=== PATIENT | male | born 1955 | race Caucasian/White ===

== ENCOUNTER 2018-02-22 09:30 | Inpatient (IN) | payer BC ==
[2018-02-22] MEDS ORDERED: IBUPROFEN 600 MG TAB PO STA (10:24)
[2018-02-22] MEDS ORDERED: ACETAMINOPHEN TAB 500 MG TAB PO STA (10:24)
[2018-02-22] MEDS ORDERED: LEVOFLOXACIN 750MG-D5W PMX 750 MG in DEXTROSE/WATER 1 150ML.BAG IVPB STA (10:24)
[2018-02-22] MEDS ORDERED: IPRATROPIUM-ALBUTEROL 3 ML NEB INHALATION STA ×2 (10:26→12:56)
[2018-02-22] MEDS ORDERED: SODIUM CHLORIDE 0.9% 1,000 ML IV SCH (10:30)
--- NOTE | 2018-02-22 10:56 | ED ---
General Adult HPI <Jc Diamond - Last Filed: 02/22/18 13:47> - General Source: patient, RN notes reviewed, old records reviewed Mode of arrival: wheelchair Limitations: no limitations <MagdalenoAmie - Last Filed: 02/22/18 14:26> - General Chief complaint: Extremity Problem,Nontraumatic Stated complaint: SWOLLEN LEGS, LEFT Time Seen by Provider: 02/22/18 10:17 - History of Present Illness Initial comments: This Patient is a 62-year-old male who presents emergency department today with chief complaint of 3 days of left leg pain and swelling. He reports it's red. He was sent in by his Patient Savage to rule out DVT. Patient also reports that over the past 3 weeks she's been having a significant cough and trouble breathing. Patient reports he has had chills. He is a nonsmoker. Patient states that the cough is productive with yellow green sputum. Patient has history of obesity. No prior history of blood clots. Patient reports that he has had increased shortness of breath. Has history of CHF. Patient states that he has difficult time walking short distances without being winded. ( MagdalenoAmie) - Related Data Home Medications Medication Instructions Recorded Confirmed Allopurinol [Zyloprim] 300 mg PO DAILY 04/17/17 02/22/18 Atorvastatin [Lipitor] 20 mg PO HS 04/17/17 02/22/18 Levothyroxine Sodium [Synthroid] 50 mcg PO DAILY 04/17/17 02/22/18 Metoprolol Tartrate [Lopressor] 100 mg PO DAILY 04/17/17 02/22/18 Potassium Chloride ER [K-Dur 20] 20 meq PO DAILY 04/17/17 02/22/18 Cholecalciferol (Vitamin D3) 2,000 unit PO DAILY 02/22/18 02/22/18 [Vitamin D3] Sodium Bicarbonate Tab 650 mg PO DAILY 02/22/18 02/22/18 Previous Rx's Medication Instructions Recorded Furosemide [Lasix] 40 mg PO DAILY #0 04/20/17 Allergies Allergy/AdvReac Type Severity Reaction Status Date / Time No Known Allergies Allergy Verified 02/22/18 11:44 Review of Systems ROS Other: All systems not noted in ROS Statement are negative. <Jc Diamond - Last Filed: 11/30/18 13:47> ROS Other: All systems not noted in ROS Statement are negative. <Amie Dolan - Last Filed: 02/22/18 14:26> ROS Statement: Those systems with pertinent positive or pertinent negative responses have been documented in the HPI. Past Medical History Past Medical History: Coronary Artery Disease (CAD), Heart Failure, Hyperlipidemia, Hypertension, Thyroid Disorder History of Any Multi-Drug Resistant Organisms: None Reported Past Surgical History: Adenoidectomy, Tonsillectomy Past Anesthesia/Blood Transfusion Reactions: No Reported Reaction Past Psychological History: No Psychological Hx Reported Smoking Status: Never smoker Past Alcohol Use History: None Reported Past Drug Use History: None Reported - Past Family History Father Family Medical History: CVA/TIA Mother Family Medical History: Cancer Additional Family Medical History / Comment(s): from cancer at age 80s <Amie Dolan - Last Filed: 02/22/18 14:26> General Exam <Jc Diamond - Last Filed: 02/22/18 13:47> Limitations: no limitations General appearance: alert, in no apparent distress Head exam: Present: atraumatic, normocephalic, normal inspection Eye exam: Present: normal appearance, PERRL, EOMI. Absent: scleral icterus, conjunctival injection, periorbital swelling ENT exam: Present: normal exam, mucous membranes moist Neck exam: Present: normal inspection. Absent: tenderness, meningismus, lymphadenopathy Respiratory exam: Present: wheezes, rhonchi, decreased breath sounds. Absent: normal lung sounds bilaterally, respiratory distress, rales, stridor Cardiovascular Exam: Present: regular rate, normal rhythm, normal heart sounds. Absent: systolic murmur, diastolic murmur, rubs, gallop, clicks GI/Abdominal exam: Present: soft, normal bowel sounds. Absent: distended, tenderness, guarding, rebound, rigid Extremities exam: Present: full ROM, normal capillary refill. Absent: normal inspection, tenderness, pedal edema, joint swelling, calf tenderness Left Knee exam: Present: swelling. Absent: tenderness, abrasion, ecchymosis, deformity, crepitus, dislocation, erythema, effusion Lower Leg exam: Present: full ROM, swelling, erythema. Absent: normal inspection Ankle exam: Present: tenderness, erythema. Absent: normal inspection, full ROM Foot/Toe exam: Absent: normal inspection Back exam: Present: normal inspection Neurological exam: Present: alert, oriented X3, CN II-XII intact Psychiatric exam: Present: normal affect, normal mood <Amie Dolan - Last Filed: 02/22/18 14:26> - General Exam Comments Initial Comments: 62-year-old male. Patient is morbidly obese. Sitting in wheelchair. (Magdaleno Amie) Vital Signs 02/22/18 02/22/18 02/22/18 09:31 11:05 11:15 Temperature 98.5 F 99.3 F Pulse Rate 117 H 88 111 H Respiratory 22 32 H Rate Blood Pressure 93/58 105/69 O2 Sat by Pulse 91 L 97 Oximetry 02/22/18 02/22/18 02/22/18 12:30 13:16 13:26 Temperature Pulse Rate 116 H 90 92 Respiratory 32 H Rate Blood Pressure 121/58 O2 Sat by Pulse 96 Oximetry 02/22/18 13:32 Temperature Pulse Rate 114 H Respiratory 30 H Rate Blood Pressure 117/83 O2 Sat by Pulse 95 Oximetry Medical Decision Making - Lab Data Result diagrams: 02/22/18 11:45 02/22/18 11:45 <Jc Diamond - Last Filed: 02/22/18 13:47> - Lab Data Result diagrams: 02/22/18 11:45 02/22/18 11:45 - Radiology Data Radiology results: report reviewed <Amie Dolan - Last Filed: 02/22/18 14:26> - Medical Decision Making The patient was seen and examined. All diagnostics were reviewed. The case is discussed with the PA and I agree with the findings as documented. Case is discussed with Dr. Marte and he is agreeable with admission. (Jc Diamond) Patient is a 62-year-old male, with chief complaint difficulty breathing, and left leg swelling. Isn't having a cough and shortness of breath for the past 3 weeks. His left leg has been swollen and red for the past 3 days. He was sent in initially to rule out blood clot. Patient was found to be very dyspneic. Wheezing and rhonchi noted in lung [place]. A low-grade temperature of 99.3. He reports a cough with yellow-green sputum. Initially concerned for pneumonia. Patient denies any specific chest pain at this time. Patient was given Motrin Tylenol and started on IV fluids. He did have elevated lactic acid of 2.6. He also has white blood cell, 15,000. Patient also chest x-ray shows possible pulmonary infiltrate or pulmonary edema concern for CHF. I do believe Patient at this time has a mixed picture of CHF and developing pneumonia. Patient was started on Levaquin. He started on Lasix, nitro paste. He was also found helmet elevated troponin of 0.207. Patient was initiated on heparin as well. Ultrasound of the leg was completed and negative for DVT. An concern for overlying cellulitis. Soap and vancomycin and Levaquin will be started on the Patient for antibiotic coverage. Patient will be admitted this time with consult to cardiology for CHF and elevated troponin. As well as consult pulmonology. Continue breathing treatments. (Amie Dolan) - Lab Data Lab Results 02/22/18 02/22/18 02/22/18 Range/Units 11:45 11:45 11:45 WBC 18.2 H (3.8-10.6) k/uL RBC 5.17 (4.30-5.90) m/uL Hgb 14.8 (13.0-17.5) gm/dL Hct 45.0 (39.0-53.0) % MCV 87.1 (80.0-100.0) fL MCH 28.6 (25.0-35.0) pg MCHC 32.8 (31.0-37.0) g/dL RDW 15.4 (11.5-15.5) % Plt Count 180 (150-450) k/uL Neutrophils % (Manual) 75 % Band Neutrophils % 18 % Lymphocytes % (Manual) 4 % Monocytes % (Manual) 4 % Other Cells % % Neutrophils # (Manual) 16.90 H (1.3-7.7) k/uL Lymphocytes # (Manual) 0.73 L (1.0-4.8) k/uL Monocytes # (Manual) 0.73 (0-1.0) k/uL Nucleated RBCs 0 (0-0) /100 WBC Toxic Granulation Present Large Platelets Present Sodium 135 L (137-145) mmol/L Potassium 4.4 (3.5-5.1) mmol/L Chloride 98 (98-107) mmol/L Carbon Dioxide 25 (22-30) mmol/L Anion Gap 12 mmol/L BUN 34 H (9-20) mg/dL Creatinine 2.15 H (0.66-1.25) mg/dL Est GFR (CKD-EPI)AfAm 37 (>60 ml/min/1.73 sqM) Est GFR (CKD-EPI)NonAf 32 (>60 ml/min/1.73 sqM) Glucose 122 H (74-99) mg/dL Plasma Lactic Acid Dario (0.7-2.0) mmol/L Calcium 9.6 (8.4-10.2) mg/dL Total Bilirubin 3.4 H (0.2-1.3) mg/dL AST 33 (17-59) U/L ALT 23 (21-72) U/L Alkaline Phosphatase 101 (38-126) U/L Troponin I (0.000-0.034) ng/mL NT-Pro-B Natriuret Pep pg/mL Total Protein 6.7 (6.3-8.2) g/dL Albumin 3.8 (3.5-5.0) g/dL Influenza Type A RNA Not Detected (Not Detectd) Influenza Type B (PCR) Not Detected (Not Detectd) 02/22/18 02/22/18 02/22/18 Range/Units 11:45 11:45 11:45 WBC (3.8-10.6) k/uL RBC (4.30-5.90) m/uL Hgb (13.0-17.5) gm/dL Hct (39.0-53.0) % MCV (80.0-100.0) fL MCH (25.0-35.0) pg MCHC (31.0-37.0) g/dL RDW (11.5-15.5) % Plt Count (150-450) k/uL Neutrophils % (Manual) % Band Neutrophils % % Lymphocytes % (Manual) % Monocytes % (Manual) % Other Cells % % Neutrophils # (Manual) (1.3-7.7) k/uL Lymphocytes # (Manual) (1.0-4.8) k/uL Monocytes # (Manual) (0-1.0) k/uL Nucleated RBCs (0-0) /100 WBC Toxic Granulation Large Platelets Sodium (137-145) mmol/L Potassium (3.5-5.1) mmol/L Chloride (98-107) mmol/L Carbon Dioxide (22-30) mmol/L Anion Gap mmol/L BUN (9-20) mg/dL Creatinine (0.66-1.25) mg/dL Est GFR (CKD-EPI)AfAm (>60 ml/min/1.73 sqM) Est GFR (CKD-EPI)NonAf (>60 ml/min/1.73 sqM) Glucose (74-99) mg/dL Plasma Lactic Acid Dario 2.6 H* (0.7-2.0) mmol/L Calcium (8.4-10.2) mg/dL Total Bilirubin (0.2-1.3) mg/dL AST (17-59) U/L ALT (21-72) U/L Alkaline Phosphatase (38-126) U/L Troponin I 0.207 H* (0.000-0.034) ng/mL NT-Pro-B Natriuret Pep 39681 pg/mL Total Protein (6.3-8.2) g/dL Albumin (3.5-5.0) g/dL Influenza Type A RNA (Not Detectd) Influenza Type B (PCR) (Not Detectd) 02/22/18 11:26 EKG shows sinus tachycardia with PVCs. Left frontal branch block. Abnormal EKG noted. Ventricular rate 108 bpm. MN interval is 150 ms. QRS ration 76 ms. QT QTc is 410/549 ms. (Amie Dolan) - Radiology Data Patchy right perihilar infiltrate may reflect developing pulmonary edema versus pneumonic infiltrate. (Amie Dolan) Disposition <Jc Diamond - Last Filed: 02/22/18 13:47> Time of Disposition: 13:38 <Amie Dolan - Last Filed: 02/22/18 14:26> Clinical Impression: Acute renal failure, Cellulitis and abscess of left leg, Morbid obesity, CHF exacerbation, NSTEMI (non-ST elevated myocardial infarction), Pneumonia Disposition: ADMITTED IP TO THIS HOSP Condition: Stable Referrals: Sherman Hall MD [Primary Care Provider] - 1-2 days
[2018-02-22] MEDS ORDERED: SODIUM CHLORIDE 0.9% 1,000 ML IV ONE (10:57)
[2018-02-22] MEDS ORDERED: methylPREDNISolone SOD SUCCI 125 MG/2 ML VIAL IV STA (10:57)
--- NOTE | 2018-02-22 12:24 | XR ---
EXAMINATION TYPE: XR chest 2V DATE OF EXAM: 02/22/2018 COMPARISON: 04/18/2017 HISTORY: Shortness of breath FINDINGS: There is cardiomegaly with mild pulmonary venous congestion. Patchy right perihilar infiltrate may re flect developing pulmonary edema versus a pneumonic infiltrate. Correlate clinically. Hilar and mediastinal structures are stable. IMPRESSION: Patchy right perihilar infiltrate may reflect developing pulmonary edema versus a pneumonic infiltrat e. Correlate clinically.
--- NOTE | 2018-02-22 12:46 | US ---
EXAMINATION TYPE: US venous doppler duplex LE LT DATE OF EXAM: 02/22/2018 10:26 AM COMPARISON: US left lower extremity venous April 17, 2017 CLINICAL HISTORY: Pain. Swelling and redness left leg. Difficult and limited exam due to patient larg e body habitus SIDE PERFORMED: Left TECHNIQUE: The lower extremity deep venous system is examined utilizing real time linear array sonog abrahan with graded compression, doppler sonography and color-flow sonography. VESSELS IMAGED: External Iliac Vein (EIV) Common Femoral Vein Deep Femoral Vein Greater Saphenous Vein * Femoral Vein Popliteal Vein Small Saphenous Vein * Proximal Calf Veins (* superficial vessels) Left Leg: Negative for DVT as visualized Grayscale, color doppler, spectral doppler imaging performed of the deep veins of the left lower extr emity. There is normal flow, compressibility, vascular waveforms. IMPRESSION: No ultrasound evidence for acute DVT in the left lower extremity.
[2018-02-22 12:49] LABS: HGB 14.8 gm/dL (13.0-17.5); MCH 28.6 pg (25.0-35.0); MCHC 32.8 g/dL (31.0-37.0); MCV 87.1 fL (80.0-100.0); Mean Platelet Volume 11.6; RBC 5.17 m/uL (4.30-5.90); RDW 15.4 % (11.5-15.5); WBC 18.2 k/uL (3.8-10.6)
[2018-02-22 12:59] LABS: Albumin 3.8 g/dL (3.5-5.0); Calcium 9.6 mg/dL (8.4-10.2); Potassium 4.4 mmol/L (3.5-5.1); Total Bilirubin 3.4 mg/dL (0.2-1.3); Total Protein 6.7 g/dL (6.3-8.2)
[2018-02-22] MEDS ORDERED: HEPARIN SODIUM,PORCINE 5,000 UNIT/ML 1 ML VIAL IV PRN (13:24)
[2018-02-22] MEDS ORDERED: ASPIRIN 325 MG TAB PO STA (13:24)
[2018-02-22] MEDS ORDERED: HEPARIN SODIUM,PORCINE 5,000 UNIT/ML 1 ML VIAL IV ONE (13:24)
[2018-02-22] MEDS ORDERED: HEPARIN SOD,PORK IN 0.45% NACL 25,000 UNIT in 0.45% NACL 1 500ML.BAG IV SCH (13:30)
[2018-02-22] MEDS ORDERED: FUROSEMIDE 10 MG/ML 4 ML VIAL IV STA (13:39)
[2018-02-22] MEDS ORDERED: VANCOMYCIN IV PER PHARMACY 1 EACH MISC MISCELLANE PRN (13:39)
[2018-02-22 13:57] LABS: Band Neutrophils % 18 %; Lymphocytes # (M) 0.73 k/uL (1.0-4.8); Monocytes # (M) 0.73 k/uL (0-1.0); Neutrophils % (M) 75 %; Nucleated Red Blood Cells 0 /100 WBC (0-0); Total Cells Counted 200
[2018-02-22 13:58] LABS: Large Platelets Present; Platelet Count 180 k/uL (150-450); Toxic Granulation Present
[2018-02-22] MEDS: SODIUM CHLORIDE 0.9% 500 ML 500 ML IV SCH ×2 (13:58→13:59)
[2018-02-22] MEDS ORDERED: NITROGLYCERIN SL TABS 0.4 MG TAB SUBLINGUAL PRN (14:26)
[2018-02-22 14:28] LABS: Basophils % (A) 0 %; Eosinophils # (A) 0.1 k/uL (0-0.7); Eosinophils % (A) 1 %; HGB 15.8 gm/dL (13.0-17.5); Lymphocytes # (A) 0.7 k/uL (1.0-4.8); Lymphocytes % (A) 4 %; MCH 28.7 pg (25.0-35.0); MCV 87.1 fL (80.0-100.0); Monocytes # (A) 0.4 k/uL (0-1.0); Monocytes % (A) 2 %; Neutrophils # (A) 16.6 k/uL (1.3-7.7); Neutrophils % (A) 93 %; Platelet Count 158 k/uL (150-450); RBC 5.51 m/uL (4.30-5.90); RDW 15.1 % (11.5-15.5); WBC 17.9 k/uL (3.8-10.6)
[2018-02-22] MEDS ORDERED: PNEUMONIA PROTOCOL UTILIZED 1 EACH MISC PO PRN (14:28)
[2018-02-22 14:37] LABS: INR 1.3 (<1.2); Partial Thromboplastin Time 28.5 sec (22.0-30.0)
[2018-02-22] MEDS ORDERED: VANCOMYCIN 2,250 MG in SODIUM CHLORIDE 0.9% 500 ML 500 ML IVPB SCH (15:00)
[2018-02-22 15:20] LABS: D-Dimer 1.16 mg/L FEU (<0.60); INR 1.2 (<1.2); Partial Thromboplastin Time 26.4 sec (22.0-30.0); Prothrombin Time 11.9 sec (9.0-12.0)
[2018-02-22 18:18] LABS: Creatine Kinase MB 19.3 ng/mL (0.0-2.4)
[2018-02-22 18:26] LABS: Troponin I 0.29 ng/mL (0.000-0.034)
[2018-02-22] MEDS: ATORVASTATIN 20 MG TAB PO SCH (21:38)
--- NOTE | 2018-02-22 22:47 | HP ---
HISTORY AND PHYSICAL DATE OF ADMISSION: 02/22/2018 DATE OF SERVICE: 02/22/2018 PRESENTING COMPLAINT: Swelling of the left lower extremity. HISTORY OF PRESENTING COMPLAINT: This is a pleasant 62-year-old patient who follows with Dr. Hall. Chronic stable medical conditions include hyperlipidemia, hypertension, hypothyroid. Patient possibly has a history of congestive heart failure. The patient is rather morbidly obese; BMI 51.7. Patient has been having increasing swelling, especially of the left leg with blisters and some draining and oozing. Patient has some discoloration of the left lower extremity. Denies any fever or chills. Appetite is fair. Minimal cough, if any. Admitted for the same. The patient also appears to have chronic kidney disease with some worsening of the renal function. Patient's shortness of breath is at his baseline, he thinks. DVT was ruled out in the ER. Patient was suspected to have congestive heart failure exacerbation, put on IV bolus Lasix. REVIEW OF SYSTEMS: CONSTITUTIONAL: Tired. HEENT: None. RESPIRATORY: Some shortness of breath. CARDIOVASCULAR: As above. No chest pain. GASTROINTESTINAL: None. GENITOURINARY: None. MUSCULOSKELETAL: None. DERMATOLOGICAL: Blisters on the left lower extremity. Some discoloration. HEMATOLOGICAL: None. LYMPHATICS: As above. PSYCHIATRY: None. NEUROLOGICAL: None. PAST MEDICAL HISTORY: 1. Congestive heart failure. 2. Hypertension. 3. Hyperlipidemia. 4. Hypothyroid. 5. Morbid obesity. PAST SURGICAL HISTORY: 1. Adenoidectomy. 2. Tonsillectomy. 3. Cataracts. SOCIAL HISTORY: Does not smoke or drink alcohol. 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 Has a roommate. FAMILY HISTORY: Cancer. HOME MEDICATIONS: 1. Sodium bicarbonate 650 mg a day. 2. Lopressor 100 mg a day. 3. Synthroid 50 mcg a day. 4. Vitamin D3 2000 units a day. 5. Potassium 20 mEq a day. 6. Lasix 40 mg a day. 7. Lipitor 20 mg at bedtime. 8. Allopurinol 300 mg p.o. daily. ALLERGIES: NONE. PHYSICAL EXAMINATION: Temperature 97, pulse 104, respiration 30, blood pressure 109/78, pulse ox 92% on room air. GENERAL APPEARANCE: Sitting on the edge of the bed. Morbidly obese; BMI 51.7. Shortness of breath at rest. EYES: Pupils equal. Conjunctivae normal. HEENT: External appearance of nose and ears normal. Oral cavity normal. NECK: Soft, thick. JVD unable to assess. Mass not palpable. RESPIRATORY: Effort increased. LUNGS: Distant heart sounds. CARDIOVASCULAR: Heart sounds muffled. Edema present, more so in the left lower extremity. ABDOMEN: Distended, soft. Liver and spleen not palpable. LYMPHATIC: No lymph node palpable in neck or axillae. PSYCHIATRY: Alert and oriented x3. Mood and affect normal. EXTREMITIES: Left leg is more swollen compared to the right. Blisters are present. There is also venostasis discoloration present, on the left lower extremity especially. Patient's nails are overgrown with some onychomycosis. INVESTIGATIONS: White count 18.2, hemoglobin 14.8, potassium 4.4, BUN 34, creatinine 2.15. ProBNP 24,300. Chest x-ray film, personally reviewed by me, shows some cardiomegaly, questionable fluid versus patchy infiltrates. ASSESSMENT: 1. This is a patient who presents with lower extremity swelling, more so on the left leg, with possible venous prominence on the chest x-ray, though the patient is grossly overweight. Patient's BNP is somewhat misleading in the setting of renal failure, but overall patient's clinical picture is compatible with congestive heart failure exacerbation. 2. Bilateral lower extremity venous insufficiency, more pronounced on the left lower extremity. 3. Chronic venostasis with blister formation, left lower extremity, with some secondary infection. 4. Bilateral onychomycosis. 5. Essential hypertension. 6. Hyperlipidemia. 7. Hypothyroid. 8. Morbid obesity; body mass index 51.7. 9. Lactic acidosis, probably type 2, not from sepsis. 10.Acute renal failure, probably prerenal, in the setting of chronic kidney disease, stage III, from nephrosclerosis. PLAN: Will stop patient's IV vancomycin, given the renal failure, and start the patient on clindamycin. Will use Silvadene cream with Kerlix and Hermes wrap. Will also put the patient on a Lasix drip for 24 hours with strict I&O and some fluid restriction. Will also send off a UA to look for chronic renal failure. Will also order a renal ultrasound. I doubt that patient has pneumonia. Consultations have been placed for Nephrology, Pulmonary and Cardiology. Care was discussed with the patient. Questions were answered. Keep a close eye on patient's renal function. MMODL / IJN: [id number] /
[2018-02-22] MEDS: FUROSEMIDE 250 MG in SODIUM CHLORIDE 0.9% 225 ML IVPB SCH (23:14)
[2018-02-22] MEDS: CLINDAMYCIN 300 MG in DEXTROSE 5% IN WATER 50 ML IVPB SCH ×2 (23:15)
[2018-02-22 23:29] LABS: Creatine Kinase MB 49.5 ng/mL (0.0-2.4)
[2018-02-23] LABS: Troponin I 0.198 ng/mL (0.000-0.034)
[2018-02-23] MEDS ORDERED: FUROSEMIDE 10 MG/ML 4 ML VIAL IV SCH
[2018-02-23 02:46] LABS: Appearance,Urine Turbid (Clear); Bacteria,Urine Occasional /hpf; Bilirubin,Urine Negative (Negative); Blood,Urine Small (Negative); Color,Urine Dark Brown; Glucose,Urine (UA) Negative (Negative); Ketones,Urine Trace (Negative); Leukocyte Esterase,Urine Negative (Negative); Mucus,Urine Few /hpf; Nitrite,Urine Negative (Negative); Protein,Urine 1+ (Negative); RBC,Urine 9 /hpf (0-5); Specific Gravity,Urine 1.017 (1.001-1.035); Squamous Epithelial Cell,Urine <1 /hpf (0-4); WBC,Urine 9 /hpf (0-5)
[2018-02-23] MEDS: LEVOTHYROXINE 50 MCG TAB PO SCH (06:17)
[2018-02-23 07:52] LABS: Basophils % (A) 0 %; Eosinophils % (A) 0 %; HCT 47.2 % (39.0-53.0); Lymphocytes # (A) 1.2 k/uL (1.0-4.8); Lymphocytes % (A) 5 %; MCH 27.9 pg (25.0-35.0); MCHC 31.7 g/dL (31.0-37.0); MCV 88.1 fL (80.0-100.0); Mean Platelet Volume 12.5; Monocytes # (A) 0.7 k/uL (0-1.0); Monocytes % (A) 3 %; Neutrophils # (A) 21.1 k/uL (1.3-7.7); Neutrophils % (A) 90 %; Platelet Count 152 k/uL (150-450); RBC 5.36 m/uL (4.30-5.90); RDW 15.3 % (11.5-15.5); WBC 23.3 k/uL (3.8-10.6)
[2018-02-23 08:10] LABS: Calcium 9.8 mg/dL (8.4-10.2); Potassium 4.5 mmol/L (3.5-5.1)
[2018-02-23] MEDS: CHOLECALCIFEROL 1,000 UNIT TAB PO SCH (08:12)
[2018-02-23] MEDS: ALLOPURINOL 300 MG TAB PO SCH (08:12)
[2018-02-23] MEDS: ASPIRIN 325 MG TAB PO SCH (08:12)
[2018-02-23] MEDS: METOPROLOL TARTRATE 50 MG TAB PO SCH (08:12)
[2018-02-23] MEDS: POTASSIUM CHLORIDE ER 20 MEQ TAB.ER PO SCH (08:12)
[2018-02-23] MEDS: CLINDAMYCIN 300 MG in DEXTROSE 5% IN WATER 50 ML IVPB SCH ×4 (08:22→16:00)
[2018-02-23] MEDS ORDERED: FUROSEMIDE 40 MG TAB PO SCH (09:00)
[2018-02-23] MEDS ORDERED: SODIUM BICARBONATE TAB 650 MG TAB PO SCH (09:00)
--- NOTE | 2018-02-23 09:45 | XR ---
EXAMINATION TYPE: XR chest 2V DATE OF EXAM: 02/23/2018 COMPARISON: 10/22/2017 HISTORY: 1 new. Follow-up exam. TECHNIQUE: Frontal and lateral views of the chest are obtained. FINDINGS: There is increasing confluence of a retrocardiac opacity also seen at the right lung base. Remainder the lungs demonstrate very mild pulmonary congestion although improved from the prior. Car diomediastinal silhouette is again enlarged. No sizable pneumothorax or pleural effusion. IMPRESSION: Increasing bibasilar opacities that may represent atelectasis or pneumonia in the approp riate clinical setting.
--- NOTE | 2018-02-23 10:44 | US ---
EXAMINATION TYPE: US renals and bladder DATE OF EXAM: 02/22/2018 COMPARISON: NONE CLINICAL HISTORY: renal failure. EXAM MEASUREMENTS: Right Kidney: 10.9 x 5.1 x 4.8 cm Left Kidney: 10.1 x 4.7 x 4.9 cm Limited due to body habitus, pt short of breath, and pt inability to rld/lld completely. Right Kidney: Severely limited examination with no gross hydronephrosis Left Kidney: Severely limited visualization with no gross hydronephrosis Bladder: Decompressed not visualized Bilateral Jets seen: No There is no evidence for hydronephrosis at this point in time. The urinary bladder is not visualized due to pt voiding prior to exam. IMPRESSION: Severely limited exam secondary to patient body habitus. No gross evidence of hydronephrosis. Urinary bladder is not visualized as the patient voided prior to the exam.
[2018-02-23] MEDS: IPRATROPIUM-ALBUTEROL 3 ML NEB INHALATION PRN (11:43)
[2018-02-23] MEDS ORDERED: DOBUTamine DRIP 500 MG in DEXTROSE/WATER 1 250ML.BAG IV SCH (12:30)
[2018-02-23] MEDS: NITROGLYCERIN OINT 1 INCH/GM PACKET TOPICAL SCH ×3 (13:43→21:04)
--- NOTE | 2018-02-23 13:43 | P.NPCON ---
History of Present Illness - Reason for Consult Consult date: 02/23/18 acute renal failure - Chief Complaint Edema and cellulitis and losing - History of Present Illness This is a 62-year-old morbidly obese male seen in consultation because of acute kidney injury, bruising and edema. Currently he is on dopamine started just a few minutes before my exam. He has not been responding to IV Lasix drip at 10 mg per hour. He remains weak and tired. Able to stand up without any orthostatic changes. His edema remains and is oozing with labs. No fever chills no nausea vomiting diarrhea no abdominal pain no dysuria frequency. A bladder scan showed 200 mL. Previously in March 2017 was admitted with a creatinine of 4.5 which came down to 1.45 on admission. The cause of this admission was again fluid overload and congestive heart failure. Workup has shown ultrasound 10.9 cm and 10.1 cm right and left kidney. A chest x-ray shows suggestive congestive heart failure and has improved. In spite of this his creatinine went up from 2.15 on admission to 2.9. History of present illness. This Patient is a 62-year-old male who presents emergency department today with chief complaint of 3 days of left leg pain and swelling. He reports it's red. He was sent in by his Patient Savage to rule out DVT. Patient also reports that over the past 3 weeks she's been having a significant cough and trouble breathing. Patient reports he has had chills. He is a nonsmoker. Patient states that the cough is productive with yellow green sputum. Patient has history of obesity. No prior history of blood clots. Patient reports that he has had increased shortness of breath. Has history of CHF. Patient states that he has difficult time walking short distances without being winded Past Medical History Past Medical History: Coronary Artery Disease (CAD), Heart Failure, Hyperlipidemia, Hypertension, Thyroid Disorder Additional Past Medical History / Comment(s): 02/22/18 PT WANTS PNE VACCINE. OTHER PMH:gout, 04-17-17 admitted with ARF AND ELEVATED POTASSIUM LEVEL History of Any Multi-Drug Resistant Organisms: None Reported Past Surgical History: Adenoidectomy, Tonsillectomy Additional Past Surgical History / Comment(s): cataracts Past Anesthesia/Blood Transfusion Reactions: No Reported Reaction Smoking Status: Never smoker - Past Family History Father Family Medical History: CVA/TIA Mother Family Medical History: Cancer Additional Family Medical History / Comment(s): from cancer at age 80s Medications and Allergies Home Medications Medication Instructions Recorded Confirmed Type Allopurinol [Zyloprim] 300 mg PO DAILY 04/17/17 02/22/18 History Atorvastatin [Lipitor] 20 mg PO HS 04/17/17 02/22/18 History Levothyroxine Sodium [Synthroid] 50 mcg PO DAILY 04/17/17 02/22/18 History Metoprolol Tartrate [Lopressor] 100 mg PO DAILY 04/17/17 02/22/18 History Potassium Chloride ER [K-Dur 20] 20 meq PO DAILY 04/17/17 02/22/18 History Furosemide [Lasix] 40 mg PO DAILY #0 04/20/17 02/22/18 Rx Cholecalciferol (Vitamin D3) 2,000 unit PO DAILY 02/22/18 02/22/18 History [Vitamin D3] Sodium Bicarbonate Tab 650 mg PO DAILY 02/22/18 02/22/18 History Allergies Allergy/AdvReac Type Severity Reaction Status Date / Time No Known Allergies Allergy Verified 02/22/18 11:44 Physical Exam Vitals: Vital Signs Temp Pulse Pulse Resp BP BP BP 02/23/18 13:15 117/77 02/23/18 13:12 126/80 02/23/18 13:09 80 145/78 02/23/18 13:03 88 107/73 02/23/18 11:55 88 02/23/18 11:42 96 81 16 02/23/18 11:41 81 16 122/81 02/23/18 08:00 96.8 F L 118 H 18 137/96 02/23/18 04:00 98 F 80 20 131/74 02/23/18 00:00 97.6 F 75 20 132/77 02/22/18 20:00 98.5 F 80 18 130/49 02/22/18 17:00 98.0 F 94 28 H 130/84 02/22/18 14:15 97.0 F L 104 H 30 H 109/78 Pulse Ox 02/23/18 13:15 02/23/18 13:12 02/23/18 13:09 02/23/18 13:03 02/23/18 11:55 02/23/18 11:42 02/23/18 11:41 93 L 02/23/18 08:00 92 L 02/23/18 04:00 94 L 02/23/18 00:00 93 L 02/22/18 20:00 92 L 02/22/18 17:00 96 02/22/18 14:15 92 L Intake and Output 02/22/18 02/23/18 02/23/18 22:59 06:59 14:59 Output Total 600 Balance -600 Output: Urine 600 Straight 600 Other: Weight 157.6 kg 157.6 kg On examination he is morbidly obese short of breath weak and tired. HEENT exam no JVP neck is supple no facial asymmetry no lymphadenopathy thyromegaly Lungs are significant for an occasional end expiratory disease with an occasional coarse crackle. Fair air entry bilaterally Heart sounds are unremarkable for any murmur rub gallop Abdomen is obese difficult to examine. Extremity exam reveals bilateral Hermes wraps with significant edema of the thighs. There are some blebs visible in the legs bilaterally just about the edge of the Hermes wrap Neurologically awake alert oriented was able to stand up with some difficulty in holding onto 8 walker. His blood pressure was 126/80 with heart rate of 93 supine and standing up when down to 117/77 with heart rate of 94. Results - Lab Results Most recent lab results Calcium 9.8 mg/dL (8.4-10.2) 02/23/18 07:01 02/23/18 07:01 02/23/18 07:01 Assessment and Plan Plan: Impression 1. Acute kidney injury secondary to cardiorenal syndrome. Worsening creatinine from 115 and admission to 2.9 with IV Lasix. Started on dopamine this morning. 2 early to see the response was just started a few minutes ago. His blood pressure was 126/80 with heart rate of 93 supine and standing up when down to 117/77 with heart rate of 94. Therefore there is no evidence of intravascular volume depletion. 2. Chronic kidney disease CK D stage III, nephrosclerosis. Baseline creatinine approximately 1.45 dated March 2017 at the time of his last discharge. Peak creatinine the time was 4.5. Ultrasound shows 10.9 and 10.1 cm kidney without hydronephrosis. Urinalysis shows 1+ proteinuria. 3. Mild gap acidosis secondary acute kidney injury gap is 18 with a bicarb of 18. Lactic acid is 3 4. Mildly high CK 1566, rhabdomyolysis but unlikely to be related to acute kidney injury at this level of CK. Cause of this may be cellulitis and tired edema. 5. Morbid obesity. 6. Slightly high troponin at 0.2 Recommendation. 1. Maintain IV Lasix currently at 10 mg per hour. 2. Agree with dopamine small doses. 3. Sodium bicarbonate 650 4 times a day. 4. Check lactic acid follow-up.
--- NOTE | 2018-02-23 14:37 | P.CRDCN ---
History of Present Illness History of present illness: This is a pleasant 62-year-old male past medical history significant for dyslipidemia, hypertension, left bundle branch block on EKG and morbid obesity. He recently established care with Dr. Goodwin in the office April of this year. At that time it is noted that he also has a history of chronic diastolic heart failure, Dr. Goodwin recommended undergoing echocardiogram, Holter monitor and Lexiscan. The patient never followed up for this test. We have been asked to see him in consultation secondary to elevated troponins and heart failure. The patient states that around about Thanksgiving time he started noticing significant edema in his left lower extremity. This seemed to be getting progressively worse over time. He takes oral Lasix at home but was showing no improvement in the edema. Venous Doppler was obtained and is negative for DVT. He also complains of cough that has been progressive over the previous 3 weeks with shortness of breath and sometimes exertional dyspnea. Chest x-ray revealed evidence of perihilar infiltrate with developing pulmonary edema versus pneumonic infiltrate. He has been started on IV antibiotics as well has a Lasix infusion. At the time of my exam he is seen sitting up at the edge of the bed in mild respiratory distress. He denies symptoms of chest discomfort, palpitations or dizziness. He states that he does sleep in an upright position but this is typically due to body habitus and comfort not necessarily related to orthopnea. Since admission his weight has remained the same and he is showing in negative fluid balance of 900 mL's. An accurate documentation of intake. There is no old echo to review. EKG reveals left bundle branch block pattern which is also seen in previous EKGs. Laboratory data reviewed, WBC 23.3 up from 17.9 on admission, hemoglobin 15, platelets 152, sodium 137, d-dimer 1.16, potassium 4.5, creatinine 2.94 from 2.15 on admission, 50 just on admission 3.0 down to 1.8, troponin admission 0.207, 0.290 0.198 with CK 1022 and 1566, NT proBNP 24,300. Current cardiac medications on admission include Lopressor 100 mg daily, potassium supplementation, Lasix 40 mg daily, atorvastatin 20 mg daily. At the time of my exam: CONSTITUTIONAL: Denies fever. Denies chills. EYES: Denies blurred vision. Denies vision changes. Denies eye pain. EARS, NOSE, MOUTH & THROAT: Denies headache. Denies sore throat. Denies ear pain. CARDIOVASCULAR: Denies chest pain. Complains of exertional shortness of breath. Denies orthopnea. Denies PND. Denies palpitations. RESPIRATORY: Denies cough. GASTROINTESTINAL: Denies abdominal pain. Denies diarrhea. Denies constipation. Denies nausea. Denies vomiting. MUSCULOSKELETAL: Denies myalgias. INTEGUMENTARY: Denies pruitis. Denies rash. NEUROLOGIC: Denies numbness. Denies tingling. Denies weakness. PSYCHIATRIC: Denies anxiety. Denies depression. ENDOCRINE: Denies fatigue. Denies weight change. Denies polydipsia. Denies polyurina. GENITOURINARY: Denies burning, hematuria or urgency with micturation. HEMATOLOGIC: Denies history of anemia. Denies bleeding. Blood pressure 104/84 heart rate 88 afebrile maintaining oxygen saturation on room air GENERAL: This is a 62-year-old male in no apparent distress at the time of my examination. Morbid obesity. HEENT: Head is atraumatic, normocephalic. Pupils are equal, round. Sclerae anicteric. Conjunctivae are clear. Mucous membranes of the mouth are moist. Neck is supple. There is no jugular venous distention although difficult to assess secondary to body habitus. No carotid bruit is heard. LUNGS: Bibasilar rales. No wheezes or rhonchi. No chest wall tenderness is noted on palpation or with deep breathing. HEART: Regular rate and rhythm without murmurs, rubs or gallops. S1 and S2 heard. ABDOMEN: Soft, nontender. Bowel sounds are heard. No organomegaly noted. EXTREMITIES: Significant 2+ plus pitting edema to the left lower extremity, 1+ pitting edema to the right lower extremity bilateral erythema noted. No calf tenderness noted. Bilateral Hermes wraps in place. VASCULAR: Radial and dorsalis pedis pulses palpated, no evidence of clubbing. NEUROLOGIC: Patient is awake, alert and oriented x3. ASSESSMENT Acute heart failure unknown type. Echocardiogram will be reviewed. Cellulitis Leukocytosis Hypertension Dyslipidemia Mildly elevated troponins not indicative of an acute coronary event may be related to sepsis Acute on chronic renal failure Morbid obesity, BMI 51 PLAN Obtain 2-D echocardiogram and Doppler study to assess cardiac structure and function. Continue with Lasix drip. Initiate on dobutamine infusion at 5 mcg. Obtain daily weights, document strict intake and output and follow kidney function and electrolytes daily. We will continue to follow make recommendations accordingly. Thank you kindly for this consultation. Nurse Practitioner note has been reviewed, I agree with a documented findings and plan of care. Patient was seen and examined. Past Medical History Past Medical History: Coronary Artery Disease (CAD), Heart Failure, Hyperlipidemia, Hypertension, Thyroid Disorder Additional Past Medical History / Comment(s): 02/22/18 PT WANTS PNE VACCINE. OTHER PMH:gout, 04-17-17 admitted with ARF AND ELEVATED POTASSIUM LEVEL History of Any Multi-Drug Resistant Organisms: None Reported Past Surgical History: Adenoidectomy, Tonsillectomy Additional Past Surgical History / Comment(s): cataracts Past Anesthesia/Blood Transfusion Reactions: No Reported Reaction Smoking Status: Never smoker - Past Family History Father Family Medical History: CVA/TIA Mother Family Medical History: Cancer Additional Family Medical History / Comment(s): from cancer at age 80s Medications and Allergies Home Medications Medication Instructions Recorded Confirmed Type Allopurinol [Zyloprim] 300 mg PO DAILY 04/17/17 02/22/18 History Atorvastatin [Lipitor] 20 mg PO HS 04/17/17 02/22/18 History Levothyroxine Sodium [Synthroid] 50 mcg PO DAILY 04/17/17 02/22/18 History Metoprolol Tartrate [Lopressor] 100 mg PO DAILY 04/17/17 02/22/18 History Potassium Chloride ER [K-Dur 20] 20 meq PO DAILY 04/17/17 02/22/18 History Furosemide [Lasix] 40 mg PO DAILY #0 04/20/17 02/22/18 Rx Cholecalciferol (Vitamin D3) 2,000 unit PO DAILY 02/22/18 02/22/18 History [Vitamin D3] Sodium Bicarbonate Tab 650 mg PO DAILY 02/22/18 02/22/18 History Allergies Allergy/AdvReac Type Severity Reaction Status Date / Time No Known Allergies Allergy Verified 02/22/18 11:44 Physical Exam Vitals: Vital Signs Temp Pulse Pulse Resp BP BP Pulse Ox 02/23/18 08:00 96.8 F L 118 H 18 137/96 92 L 02/23/18 04:00 98 F 80 20 131/74 94 L 02/23/18 00:00 97.6 F 75 20 132/77 93 L 02/22/18 20:00 98.5 F 80 18 130/49 92 L 02/22/18 17:00 98.0 F 94 28 H 130/84 96 02/22/18 14:15 97.0 F L 104 H 30 H 109/78 92 L 02/22/18 13:32 114 H 30 H 117/83 95 02/22/18 13:26 92 02/22/18 13:16 90 02/22/18 12:30 116 H 32 H 121/58 96 02/22/18 11:15 99.3 F 111 H 32 H 105/69 97 02/22/18 11:05 88 02/22/18 09:31 98.5 F 117 H 22 93/58 91 L Intake and Output 02/22/18 02/23/18 02/23/18 22:59 06:59 14:59 Output Total 600 Balance -600 Output: Urine 600 Straight 600 Other: Weight 157.6 kg Results 02/23/18 07:01 02/23/18 07:01 Cardiac Enzymes 02/22/18 02/22/18 02/22/18 Range/Units 11:45 11:45 17:11 AST 33 (17-59) U/L CK-MB (CK-2) 19.3 H (0.0-2.4) ng/mL Troponin I 0.207 H* 0.290 H* (0.000-0.034) ng/mL 02/22/18 Range/Units 22:28 AST (17-59) U/L CK-MB (CK-2) 49.5 H (0.0-2.4) ng/mL Troponin I 0.198 H* (0.000-0.034) ng/mL Coagulation 02/22/18 02/22/18 02/22/18 Range/Units 13:59 14:20 22:28 PT 12.0 11.9 (9.0-12.0) sec APTT 28.5 26.4 34.4 H (22.0-30.0) sec 02/23/18 Range/Units 07:01 PT (9.0-12.0) sec APTT 32.7 H (22.0-30.0) sec Lipids 02/23/18 Range/Units 07:01 Triglycerides 109 (<150) mg/dL Cholesterol 130 (<200) mg/dL HDL Cholesterol 34 L (40-60) mg/dL CBC 02/22/18 02/22/18 02/23/18 Range/Units 11:45 13:59 07:01 WBC 18.2 H 17.9 H 23.3 H (3.8-10.6) k/uL RBC 5.17 5.51 5.36 (4.30-5.90) m/uL Hgb 14.8 15.8 15.0 (13.0-17.5) gm/dL Hct 45.0 48.0 47.2 (39.0-53.0) % Plt Count 180 158 152 (150-450) k/uL Comprehensive Metabolic Panel 02/22/18 02/23/18 Range/Units 11:45 07:01 Sodium 135 L 137 (137-145) mmol/L Potassium 4.4 4.5 (3.5-5.1) mmol/L Chloride 98 101 (98-107) mmol/L Carbon Dioxide 25 18 L (22-30) mmol/L BUN 34 H 52 H (9-20) mg/dL Creatinine 2.15 H 2.94 H (0.66-1.25) mg/dL Glucose 122 H 118 H (74-99) mg/dL Calcium 9.6 9.8 (8.4-10.2) mg/dL AST 33 (17-59) U/L ALT 23 (21-72) U/L Alkaline Phosphatase 101 (38-126) U/L Total Protein 6.7 (6.3-8.2) g/dL Albumin 3.8 (3.5-5.0) g/dL Current Medications Generic Name Dose Route Start Last Admin Trade Name Freq PRN Reason Stop Dose Admin Albuterol/Ipratropium 3 ml 02/22/18 14:28 Duoneb 0.5 Mg-3 Mg/3 Ml Soln INHALATION RT-Q4H PRN shortness of breath Allopurinol 300 mg 02/23/18 09:00 02/23/18 08:12 Zyloprim PO 300 mg DAILY RADHA Administration Aspirin 325 mg 02/23/18 09:00 02/23/18 08:12 Aspirin PO 325 mg DAILY RADHA Administration Atorvastatin Calcium 20 mg 02/22/18 21:00 02/22/18 21:38 Lipitor PO 20 mg HS RADHA Administration Cholecalciferol 2,000 unit 02/23/18 09:00 02/23/18 08:12 Vitamin D3 PO 2,000 unit DAILY RADHA Administration Furosemide 40 mg 02/23/18 09:00 02/23/18 08:22 Lasix PO Not Given DAILY RADHA Heparin Sodium (Porcine) 0 unit 02/22/18 13:24 Heparin IV PER PROTOCOL PRN Low PTT Protocol Levofloxacin 750 mg/ IV 150 mls @ 100 mls/hr 02/23/18 16:00 Solution IVPB 03/05/18 16:01 Q24H RADHA Furosemide 250 mg/ Sodium 250 mls @ 10 mls/hr 02/22/18 22:00 02/22/18 23:14 Chloride IVPB 10 mg/hr .Q24H RADHA 10 mls/hr Administration 10 MG/HR Clindamycin Phosphate 300 mg/ 52 mls @ 50 mls/hr 02/23/18 00:00 02/23/18 08: 22 Dextrose/Water IVPB 50 mls/hr Q8HR RADHA Administration Levothyroxine Sodium 50 mcg 02/23/18 06:30 02/23/18 06:17 Synthroid PO 50 mcg 0630 RADHA Administration Metoprolol Tartrate 100 mg 02/23/18 09:00 02/23/18 08:12 Lopressor PO 100 mg DAILY RADHA Administration Miscellaneous Information 1 each 02/22/18 14:28 Pneumonia Protocol Utilized PO ONCE PRN Per Protocol Nitroglycerin 1 inch 02/23/18 13:25 Nitro-Bid Oint TOPICAL QID [facility] Nitroglycerin 0.4 mg 02/22/18 14:26 Nitrostat SUBLINGUAL Q5M PRN Chest Pain Potassium Chloride 20 meq 02/23/18 09:00 02/23/18 08:12 K-Dur 20 PO 20 meq DAILY RADHA Administration Silver Sulfadiazine 1 applic 02/22/18 21:45 02/23/18 08:13 Silvadene Cream TOPICAL 1 applic BID RADHA Administration Sodium Bicarbonate 650 mg 02/23/18 09:00 02/23/18 08:12 Sodium Bicarbonate Tab PO 650 mg DAILY RADHA Administration Intake and Output 02/22/18 02/23/18 02/23/18 22:59 06:59 14:59 Output Total 600 Balance -600 Output: Urine 600 Straight 600 Other: Weight 157.6 kg 02/23/18 07:01 02/23/18 07:01
--- NOTE | 2018-02-23 14:47 | ECHOF ---
Referral Reason:cp, sob MEASUREMENTS -------- HEIGHT: 175.3 cm WEIGHT: 157.4 kg BP: 137/96 IVSd: 1.3 cm (0.6 - 1.1) LVIDd: 6.0 cm (3.9 - 5.3) LVPWd: 1.3 cm (0.6 - 1.1) EDV(Teich): 178 ml IVSs: 1.8 cm LVIDs: 5.3 cm LVPWs: 2.5 cm %IVS Thck: 42 % ESV(Teich): 137 ml EF(Teich): 23 % %FS: 11 % SV(Teich): 42 ml LA Diam: 4.6 cm (2.7 - 3.8) RVIDd: 3.4 cm (< 3.3) LALs A4C: 6.9 cm LAAs A4C: 27.7 cm LAESV A-L A4C: 94 ml LAESV MOD A4C: 90 ml LALs A2C: 6.6 cm LAAs A2C: 30.4 cm LAESV A-L A2C: 120 ml LAESV MOD A2C: 109 ml LAESV(A-L): 109 ml LAESV Index (A-L): 41.82 ml/m Ao Diam: 3.6 cm (2.0 - 3.7) AV Cusp: 2.8 cm (1.5 - 2.6) EPSS: 2.3 cm MV E Jonathan: 0.55 m/s MV DecT: 360 ms MV Dec [place]: 1.5 m/s MV A Jonathan: 0.79 m/s MV E/A Ratio: 0.70 MV PHT: 104 ms AV Vmax: 1.34 m/s AV maxP.19 mmHg AR Vmax: 3.61 m/s AR maxP.17 mmHg AR PHT: 919 ms AR Dec Time: 3169 ms AR Dec [place]: 1.1 m/s TR Vmax: 2.72 m/s TR maxP.51 mmHg RAP: 5.00 mmHg RVSP: 34.51 mmHg MV EF SLOPE: 32.91 mm/s (70 - 150) MV EXCURSION: 20.30 mm (> 18.000) FINDINGS -------- This was a technically difficult study with suboptimal views. The left ventricular size is normal. There is mild concentric left ventricular hypertrophy. Overa ll left ventricular systolic function is severely impaired with, an EF between 20 - 25 %. The right ventricle is mildly enlarged. LA is severely dilated >40 ml/m2 The right atrium is normal in size. 5 ml of Lumason was utilized for enhancement of images. Aortic valve is trileaflet and is mildly thickened. Mild mitral annular calcification present. Mild tricuspid regurgitation present. There is mild pulmonary hypertension. Trace/mild (physiologic) pulmonic regurgitation. The aortic root size is normal. Normal inferior vena cava with normal inspiratory collapse consistent with estimated right atrial pre ssure of 5 mmHg. There is no pericardial effusion. CONCLUSIONS -------- 1. This was a technically difficult study with suboptimal views. 2. The left ventricular size is normal. 3. There is mild concentric left ventricular hypertrophy. 4. Overall left ventricular systolic function is severely impaired with, an EF between 20 - 25 %. 5. The right ventricle is mildly enlarged. 6. LA is severely dilated >40 ml/m2 7. The right atrium is normal in size. 8. 5 ml of Lumason was utilized for enhancement of images. 9. Aortic valve is trileaflet and is mildly thickened. 10. Mild mitral annular calcification present. 11. Mild tricuspid regurgitation present. 12. There is mild pulmonary hypertension. 13. Trace/mild (physiologic) pulmonic regurgitation. 14. The aortic root size is normal. 15. Normal inferior vena cava with normal inspiratory collapse consistent with estimated right atrial pressure of 5 mmHg. 16. There is no pericardial effusion. MAINTENANCE ASSISTANT: Rae Marcial RDCS
[2018-02-23] MEDS ORDERED: LEVOFLOXACIN 750MG-D5W PMX 750 MG in DEXTROSE/WATER 1 150ML.BAG IVPB SCH (16:00)
[2018-02-23] MEDS: SODIUM BICARBONATE TAB 650 MG TAB PO SCH ×2 (17:15→21:04)
[2018-02-23] MEDS: FUROSEMIDE 250 MG in SODIUM CHLORIDE 0.9% 225 ML IVPB SCH (21:00)
[2018-02-23] MEDS: ATORVASTATIN 20 MG TAB PO SCH (21:04)
--- NOTE | 2018-02-23 21:57 | PN ---
PROGRESS NOTE DATE OF SERVICE: 02/23/2018 PRESENTING COMPLAINT: Lower extremity swelling. INTERVAL HISTORY: Patient admitted with CHF exacerbation. has come back at 20%, also started on dopamine drip, not making too much of urine as expected. Sitting on the edge of the bed. REVIEW OF SYSTEMS: Done for constitutional, cardiovascular, GI, pulmonary; relevant findings as above. CURRENT MEDICATIONS: Reviewed that include IV dobutamine, IV clindamycin, Silvadene cream. PHYSICAL EXAMINATION: VITAL SIGNS: Temperature 97.9, pulse 79, respiratory 18, blood pressure 140/73, pulse ox 98 percent on 2 L. GENERAL APPEARANCE: Sitting at the edge of the bed, tired, short of breath. NECK: JVD unable to assess. Mass not palpable. Respiratory effort increased. LUNGS: Distant breath sounds. CARDIOVASCULAR: Heart sounds muffled. Edema present. ABDOMEN: Distended, soft. Liver and spleen not palpable. PSYCHIATRY: Alert and oriented x3. Mood and affect normal. EXTREMITIES: Left leg in an Hermes wrap. INVESTIGATIONS: White count 23.3, potassium 4.5, BUN 52, creatinine 2.94. ASSESSMENT: 1. Acute on chronic congestive heart failure exacerbation from systolic dysfunction ejection fraction 20%, slow to respond. 2. Bilateral lower extremity venous insufficiency, more pronounced left lower extremity. 3. Chronic venous stasis dermatitis with distal formation especially left lower extremity with secondary cellulitis. 4. Bilateral onychomycosis. 5. Essential hypertension. 6. Hyperlipidemia. 7. Hypothyroid. 8. Morbid obesity, BMI 51.7. 9. Lactic acidosis probably type 2. 10.Chronic kidney disease stage 3 from nephrosclerosis. 11.Acute renal failure probably cardiorenal syndrome. PLAN: Continue with IV clindamycin, Silvadene cream, Lasix drip, dopamine drip. Follow with consultants. Prognosis guarded. Follow closely. MMODL / IJN: [id number] /
--- NOTE | 2018-02-23 23:45 | CONS ---
CONSULTATION DATE OF SERVICE: 02/23/2018. HISTORY: This is a 62-year-old obese white male who is brought into the emergency department with a chief complaint of 3 days worth of leg pain and swelling. He states his legs are rather red and swollen. He was sent by his primary doctor to rule out DVT. The patient also apparently had some chills. He also had been complaining of shortness of breath. He also had some cough without phlegm production. The patient is a lifelong nonsmoker and there is history of any lung issues. He does state that occasionally he will cough of a small amount of phlegm. The patient denies any chest pain or chest discomfort. Denies coughing up any blood. No nausea, vomiting or diarrhea. No sore throat or earache. He was seen in the emergency room and was admitted with a diagnosis of CHF, possible pneumonia, and cellulitis of the lower extremities with swelling. Currently, the patient is doing relatively well. He feels a bit better today than he did yesterday. The patient states that he is a lifelong nonsmoker and has no history of any lung issues. Chest x-ray in my opinion looks like fluid overload. The patient currently is on a Lasix drip. He may also have a very mild tracheobronchitis. He does have some chest congestion cough and some minimal phlegm production. Again, no history of intrinsic pulmonary disease according to him. MEDICATIONS: At home include the followin. Allopurinol. 2. Lipitor. 3. Levothyroxine. 4. Metoprolol. 5. Potassium. 6. Vitamin D3. 7. Sodium bicarbonate tablets. 8. He has also been on Lasix from time to time. ALLERGIES: Denied. MEDICAL HISTORY: Includes CAD, heart failure, hyperlipidemia, hypertension and hypothyroidism. He also has a history of gout. He denies a history of lung disease. SURGICAL HISTORY: Includes among other things adenoidectomy and tonsillectomy. SOCIAL HISTORY: Negative for tobacco use. Denies any alcohol or illicit drug use. FAMILY HISTORY: Positive for CVA and cancer. OCCUPATIONAL HISTORY: Noncontributory. REVIEW OF SYSTEMS: CONSTITUTIONAL: Negative. NEUROLOGIC: Negative. HEENT: Negative. CARDIOVASCULAR: Negative. PULMONARY: Chest congestion and cough, minimal phlegm production, shortness of breath. GI: Negative. : Negative. RHEUMATOLOGIC: Negative. IMMUNOLOGIC: Negative. ENDOCRINOLOGIC: Negative. DERMATOLOGIC: Negative. PHYSICAL EXAMINATION: VITAL SIGNS: Current vital signs are reviewed. They include a temperature 96.8, heart rate 88, respiratory rate 16, blood pressure 122/81, mean 94, 2 L saturation 93 to 95 percent. Appears no acute distress. Certainly no respiratory distress. Nasal O2 in place. No audible wheezing. His cough is somewhat congested. HEENT: Examination is grossly unremarkable. Mucous membranes are moist. No oral lesions. NECK: Supple. Full range of motion. No adenopathy or thyromegaly. Neck veins are flat. CARDIOVASCULAR: Examination reveals distant heart sounds. S1, S2 normal. No distinct murmur is noted. No S3, S4. LUNGS: A few scattered rhonchi. There are some mild expiratory wheezes. Breath sounds are diminished throughout. Some crackles at the bases. ABDOMEN: Obese. Bowel sounds are heard. No masses or tenderness. EXTREMITIES: Some edema. The legs are wrapped so they could not be visualized. Pulses are intact. SKIN: Reveals some chronic venostasis changes to lower extremities. NEUROLOGIC EXAMINATION: Brief but nonfocal. DIAGNOSTIC MIRIAM: Chest x-ray from the shows changes in my opinion consistent with CHF. There is some cardiomegaly and some venous congestion. There is also some fluid in the minor fissure. Chest x-ray from the shows very mild pulmonary congestion, although somewhat improved. Nephrology saw the patient and has ordered a renal ultrasound. There was no gross hydronephrosis. Venous Doppler was done of the lower extremities and reveals no evidence of DVT in the left lower extremity. Labs reviewed. White count 23.3, hemoglobin, hematocrit and platelet count all normal. PTT was 32.7. Sodium, potassium normal. Chloride 101, CO2 18, anion gap is 18. BUN and creatinine were 52 and 2.94. Electrolytes consistent with an anion gap metabolic acidosis secondary to chronic kidney disease. His plasma lactic acid was initially 3 and then 1.8. CKs were 1022 and then 1566. His troponins were 0.290 and 0.198. His urine shows 1+ protein, trace ketones, small amount of blood, 9 RBCs, 9 WBCs and occasional bacteria. Interestingly, he does not complain of any urinary complaints. MEDICATIONS: Reviewed. He is currently on clindamycin, updrafts, Levaquin, and mostly cardiac medications. ASSESSMENT: 1. Congestive heart failure. 2. Morbid obesity. 3. Mildly elevated troponin levels. Rule out myocardial ischemia. 4. Mild purulent tracheobronchitis. 5. No history to suggest intrinsic pulmonary disease. 6. Lower extremity cellulitis. 7. Rule out urinary tract infection. 8. Chronic kidney disease. The BUN is 52 and creatinine 2.94. 9. Anion gap metabolic acidosis secondary to chronic kidney disease. 10.History of coronary artery disease. 11.History of hyperlipidemia. 12.History of hypertension. 13.History of hypothyroidism. PLAN: The patient is on Levaquin. He is on updrafts. He does not need any Solu-Medrol at this time. He is being treated by the primary service for CHF with Lasix drip. We will continue to follow. No additional recommendations are made at this time. The patient does not appear to have any intrinsic pulmonary disease. He is a lifelong nonsmoker. Additional recommendations and suggestions are forthcoming. Prognosis is guarded. MMODL / IJN: [id number] /
[2018-02-24] MEDS: CLINDAMYCIN 300 MG in DEXTROSE 5% IN WATER 50 ML IVPB SCH ×4 (01:21→08:22)
[2018-02-24] MEDS ORDERED: DEXTROSE 5% IN WATER 100 ML with AMIODARONE 150 MG IV ONE (05:00)
[2018-02-24] MEDS: AMIODARONE 450 MG in DEXTROSE 5% IN WATER 250 ML IV SCH ×6 (05:06→21:26)
[2018-02-24] MEDS: LEVOTHYROXINE 50 MCG TAB PO SCH (05:11)
[2018-02-24 06:26] LABS: Basophils % (A) 0 %; Calcium 8.9 mg/dL (8.4-10.2); Eosinophils # (A) 0.1 k/uL (0-0.7); Eosinophils % (A) 0 %; HCT 40.6 % (39.0-53.0); HGB 12.9 gm/dL (13.0-17.5); Lymphocytes # (A) 1.2 k/uL (1.0-4.8); Lymphocytes % (A) 6 %; MCH 27.8 pg (25.0-35.0); MCHC 31.8 g/dL (31.0-37.0); MCV 87.5 fL (80.0-100.0); Mean Platelet Volume 12.2; Monocytes % (A) 4 %; Neutrophils # (A) 19.5 k/uL (1.3-7.7); Neutrophils % (A) 88 %; Platelet Count 141 k/uL (150-450); RBC 4.64 m/uL (4.30-5.90); RDW 15.4 % (11.5-15.5); WBC 22.1 k/uL (3.8-10.6)
[2018-02-24 06:35] LABS: Potassium 4.8 mmol/L (3.5-5.1)
[2018-02-24] MEDS: ASPIRIN 325 MG TAB PO SCH (08:20)
[2018-02-24] MEDS: ALLOPURINOL 300 MG TAB PO SCH (08:20)
[2018-02-24] MEDS: NITROGLYCERIN OINT 1 INCH/GM PACKET TOPICAL SCH ×4 (08:21→21:25)
[2018-02-24] MEDS: CHOLECALCIFEROL 1,000 UNIT TAB PO SCH (08:21)
[2018-02-24] MEDS: METOPROLOL TARTRATE 50 MG TAB PO SCH (08:21)
[2018-02-24] MEDS: POTASSIUM CHLORIDE ER 20 MEQ TAB.ER PO SCH (08:21)
[2018-02-24] MEDS: SODIUM BICARBONATE TAB 650 MG TAB PO SCH ×4 (08:22→21:26)
[2018-02-24 09:32] LABS: Large Platelets Present
[2018-02-24] MEDS ORDERED: SODIUM CHLORIDE 0.9% 250 ML IV ONE ×4 (10:03→13:00)
--- NOTE | 2018-02-24 10:13 | PN ---
PROGRESS NOTE This patient's medical records and clinical panel is reviewed. Please refer to the EMR for further details. The patient is admitted with cellulitis and the lactic acidosis and picture suggestive of sepsis. The patient's echocardiogram shows severely impaired left ventricular systolic function. However IVC was not dilated and was collapsing so the right atrial pressure was not significantly elevated. This patient has been treated with Lasix drip for last 48 hours. His urine output remains 4 and patient's kidney functions are worsening. Because of this patient's morbid obesity, this patient's volume status is difficult to assess. The chest x-ray yesterday did not show any significant overt heart failure. The patient went into the atrial fibrillation after he was being treated for dobutamine and so the dobutamine was discontinued and patient currently is getting IV amiodarone. Heart rate now is 100-110, blood pressure is 120/64 mmHg. First and second heart sounds are normal. Lungs are clear to auscultation [place] [id number]. FINAL IMPRESSION: This patient is admitted with cellulitis and sepsis. The patient has bilateral leg edema, which could be partly due to the cellulitis and venous insufficiency. The patient's IVC was not dilated and was collapsing and it was not suggestive of a significantly elevated right atrial pressure. It is possible that the patient may be still hypovolemic at present and in view of the worsening renal failure in spite of the Lasix drip. I will give him intravenous fluids at about 250 mL/hour x4 and then 125 mL/hour. We will do the chest x-ray today and tomorrow. Continue the IV amiodarone drip to control the rate. Patient's overall prognosis is guarded. MMODL / IJN: [id number] /
[2018-02-24] MEDS: SODIUM CHLORIDE 0.9% 1,000 ML IV SCH ×2 (11:25→17:41)
[2018-02-24] MEDS ORDERED: SODIUM CHLORIDE 0.9% 1,000 ML IV SCH (12:00)
--- NOTE | 2018-02-24 12:16 | XR ---
EXAMINATION TYPE: XR chest 1V portable DATE OF EXAM: 02/24/2018 HISTORY: Shortness of breath. COMPARISON: 02/23/2018 TECHNIQUE: Single view of the chest is submitted. FINDINGS: Demonstrated are scattered senescent parenchymal change. There is no evidence for focal infiltrate. The heart is stable. Hilar and mediastinal structures are within normal limits. Degenerative changes are seen of the dorsal spine. IMPRESSION: 1. Chronic changes without evidence for acute pulmonary disease.
--- NOTE | 2018-02-24 13:22 | P.PN ---
Subjective Progress Note Date: 02/24/18 Principal diagnosis: This is a 62-year-old morbidly obese male seen in consultation because of acute kidney injury, bruising and edema. Currently he is on dopamine started just a few minutes before my exam. He has not been responding to IV Lasix drip at 10 mg per hour. He remains weak and tired. Able to stand up without any orthostatic changes. His edema remains and is oozing with labs. No fever chills no nausea vomiting diarrhea no abdominal pain no dysuria frequency. A bladder scan showed 200 mL. Previously in March 2017 was admitted with a creatinine of 4.5 which came down to 1.45 on admission. The cause of this admission was again fluid overload and congestive heart failure. Workup has shown ultrasound 10.9 cm and 10.1 cm right and left kidney. A chest x-ray shows suggestive congestive heart failure and has improved. In spite of this his creatinine went up from 2.15 on admission to 2.9. History of present illness. This Patient is a 62-year-old male who presents emergency department today with chief complaint of 3 days of left leg pain and swelling. He reports it's red. He was sent in by his Patient Savage to rule out DVT. Patient also reports that over the past 3 weeks she's been having a significant cough and trouble breathing. Patient reports he has had chills. He is a nonsmoker. Patient states that the cough is productive with yellow green sputum. Patient has history of obesity. No prior history of blood clots. Patient reports that he has had increased shortness of breath. Has history of CHF. Patient states that he has difficult time walking short distances without being winded Objective - Vital Signs Vital signs: Vital Signs Temp 98.0 F 02/24/18 08:00 Pulse 85 02/24/18 11:55 Resp 18 02/24/18 11:55 BP 122/53 02/24/18 11:47 Pulse Ox 94 L 02/24/18 11:47 Intake & Output 02/23/18 02/24/18 02/24/18 18:59 06:59 18:59 Intake Total 670 217.667 216.963 Output Total 300 Balance 370 217.667 216.963 Weight 157.6 kg 158.4 kg Intake: Intake, IV Titration 190 217.667 216.963 Amount Amiodarone 450 mg In 216.963 Dextrose 5% in Water 250 ml @ 1 MG/MIN 34.53 mls/ hr IV .Q7H31M [facility] Rx#: [id number] Clindamycin 300 mg In 50 Dextrose 5% in Water 50 ml @ 50 mls/hr IVPB Q8HR [facility] Rx#:[id number] DOBUTamine DRIP 500 mg In 60 Dextrose/Water 1 250ml. bag @ 5 MCG/KG/MIN 23.64 mls/hr IV .[id number] [facility] Rx #:[id number] Furosemide 250 mg In 80 217.667 Sodium Chloride 0.9% 225 ml @ 10 MG/HR 10 mls/hr IVPB .Q24H [facility] Rx#: [id number] Other 480 Output: Urine 300 - Labs CBC & Chem 7: 02/24/18 06:00 02/24/18 06:00 Labs: Abnormal Lab Results - Last 24 Hours (Table) 02/24/18 02/24/18 Range/Units 06:00 06:00 WBC 22.1 H (3.8-10.6) k/uL Hgb 12.9 L (13.0-17.5) gm/dL Plt Count 141 L (150-450) k/uL Neutrophils # 19.5 H (1.3-7.7) k/uL Sodium 136 L (137-145) mmol/L Carbon Dioxide 20 L (22-30) mmol/L BUN 75 H (9-20) mg/dL Creatinine 3.29 H (0.66-1.25) mg/dL Glucose 115 H (74-99) mg/dL Microbiology - Last 24 Hours (Table) 02/23/18 02:00 Urine Culture - Final Urine,Catheterized 02/22/18 11:45 Blood Culture - Preliminary Blood No Growth after 24 hours Assessment and Plan Plan: Impression 1. Acute kidney injury secondary to cardiorenal syndrome. Started on IV Lasix , as well as on dopamine. His creatinine went up from 2.15-2.9 yesterday on 03/2017 additionally he Went into atrial fibrillation yesterday 02/23/2018. Dopamine was discontinued yesterday. This morning further worsening to 3.29 this morning. 2. Chronic kidney disease CK D stage III, nephrosclerosis. Baseline creatinine approximately 1.45 dated March 2017 at the time of his last discharge. Peak creatinine the time was 4.5. Ultrasound shows 10.9 and 10.1 cm kidney without hydronephrosis. Urinalysis shows 1+ proteinuria. 3. Mild gap acidosis secondary acute kidney injury gap is 18 with a bicarb of 18. Lactic acid is 3 . His bicarb is 20 this morning 4. Mildly high CK 1566, rhabdomyolysis but unlikely to be related to acute kidney injury at this level of CK. Cause of this may be cellulitis 5. Morbid obesity. 6. Slightly high troponin at 0.2 Recommendation. 1. Discussed with cardiology and agree with the strategy to try IV fluids, discontinue the IV Lasix, this is based on the fact that his IVC was collapsed on the echocardiogram and his ejection fraction is poor in the 20% range. 2. Continue Sodium bicarbonate 650 4 times a day. 3. Discussed with patient possible need for dialysis if his creatinine does not improve. He states his father was on dialysis and he does not wish to be on dialysis.
--- NOTE | 2018-02-24 14:40 | PN ---
PROGRESS NOTE DATE OF SERVICE: February 24, 2018 This is a 62-year-old male who we saw in consultation yesterday. He came in with 3 days worth of increasing leg swelling and also shortness of breath. He was sent in by his primary doctor to rule out DVT. The patient is feeling better today. The patient in my opinion did have evidence of heart failure on chest x-ray. Venous Doppler of lower extremities was negative for DVT. His most recent chest x-ray shows improvement in my opinion. He is feeling a bit better. The patient also has a history of morbid obesity, elevated troponin level, purulent tracheobronchitis, lower extremity cellulitis, possible UTI, chronic kidney disease, anion gap metabolic acidosis, CAD, hyperlipidemia, hypertension and hypothyroidism. The patient denies any phlegm production. Denies any cough. He is not short of breath at this time. He states he is feeling better than he did yesterday. He apparently has a lifelong history of not using tobacco. PHYSICAL EXAMINATION: Vital signs are reviewed. Temperature 98, heart rate 88, respiratory rate 18, blood pressure 122/53, mean 76 and 2 L saturations 94%. Appears in no acute distress. Not tachypneic or dyspneic. Not using accessory muscles. No audible wheezing. HEENT examination is grossly unremarkable. Mucous membranes are moist. Nasal O2 in place. NECK: Supple. No adenopathy or thyromegaly. Neck veins are flat. Cardiovascular examination reveals distant heart sounds. Heart rate about 80 beats per minute. S1, S2 normal. No murmur is noted. No S3, S4. Lungs reveal a few scattered crackles. Few scattered mild rhonchi. No wheezes. Breath sounds equal bilaterally. Abdomen is obese. Bowel sounds are heard. Extremities reveal some edema. It is 1+. Legs are wrapped. Pulses are intact. Skin is showing some evidence of chronic venostasis. Neurologic examination is nonfocal. LAB DATA: Reviewed. White count 22.1, hemoglobin 12.9, hematocrit 40.6, platelet count 141,000. Sodium 136, potassium 4.8, chloride 101, CO2 20, anion gap 15, BUN and creatinine are bit worse at 75 and 3.29. His N-terminal proBNP was quite elevated on admission is 24,300. The rest of his labs are reviewed. Influenza studies were negative. Microbiologic studies including urine and blood sampling is negative. Medications are reviewed. ASSESSMENT: 1. Acute congestive heart failure, improved both clinically and radiographically. 2. No history of deep venous thrombosis. 3. Morbid obesity. 4. Elevated troponin levels, rule out ischemia vs. supply/demand mismatch. 5. Mild purulent tracheobronchitis. 6. Worsening renal function/chronic kidney disease. 7. No history to suggest intrinsic pulmonary disease as the patient is a lifelong nonsmoker. 8. Lower extremity cellulitis. 9. Rule out urinary tract infection. 10.Anion gap metabolic acidosis secondary to chronic kidney disease. 11.History of coronary artery disease. 12.Hyperlipidemia. 13.Hypertension. 14.Hypothyroidism. PLAN: The patient's medications are reviewed. His labs and x-rays are reviewed. Microbiologic studies are negative thus far. The patient is currently on both Levaquin and clindamycin. I will stop the clindamycin. The Levaquin dose is probably more than what he needs based on his renal function. That should be adjusted by Nephrology. Additional recommendations and suggestions are forthcoming. Remains on updrafts q.4. Prognosis is guarded. Clinically, he has improved. Additional recommendations and suggestions are forthcoming. Prognosis is guarded. MMODL / IJN: [id number] / TAISHA
[2018-02-24] MEDS: LEVOFLOXACIN 250 MG TAB PO SCH (16:14)
[2018-02-24 17:38] LABS: INR 1.1 (<1.2); Prothrombin Time 10.4 sec (9.0-12.0)
[2018-02-24] MEDS ORDERED: WARFARIN 5 MG TAB PO ONE (18:00)
[2018-02-24] MEDS: ATORVASTATIN 20 MG TAB PO SCH (21:25)
--- NOTE | 2018-02-24 21:58 | PN ---
PROGRESS NOTE DATE OF SERVICE: 02/24/2018 PRESENTING COMPLAINT: Tired. INTERVAL HISTORY: Patient admitted with CHF exacerbation with EF of 20%. Had been on Lasix drip and dopamine drip. The patient became tachycardic. It was felt that the patient is more hypovolemic and Nephrology and Cardiology decided to DC the Lasix. The patient is getting IV fluids. The patient also being treated for cellulitis lower extremity along with venous insufficiency. The patient's friend is present at the bedside. REVIEW OF SYSTEMS: Done for constitutional, cardiovascular, GI, pulmonary; relevant findings as above. CURRENT MEDICATIONS: Reviewed that include IV fluids, IV amiodarone, Levaquin, Silvadene cream, IV fluids. PHYSICAL EXAMINATION: VITAL SIGNS: Temperature 98.2. Pulse 50, respiratory 18, blood pressure 109/68, pulse ox 95% on 2 L. GENERAL APPEARANCE: Sitting at the edge of the bed, tired-appearing. NECK: JVD unable to assess. Mass not palpable. RESPIRATORY: Effort increased. LUNGS: Distant breath sounds. CARDIOVASCULAR: Heart sounds muffled. Edema present. ABDOMEN: Distended, soft. Liver and spleen not palpable. PSYCHIATRY: Alert and oriented x3. Mood and affect normal. Power and sensation grossly intact. EXTREMITIES: Legs in an Hermes wrap. INVESTIGATIONS: White count 22.1, hemoglobin 12.9, potassium 4.8, BUN 75, creatinine 3.29. ASSESSMENT: 1. Acute on chronic congestive heart failure exacerbation from systolic dysfunction, ejection fraction 20%. The patient is possibly now hypovolemic. 2. Bilateral lower extremity venous insufficiency, more pronounced, left lower extremity. 3. Chronic venous stasis dermatitis of especially left lower extremity with secondary cellulitis. 4. Bilateral onychomycosis. 5. Essential hypertension. 6. Hyperlipidemia. 7. Hypothyroid. 8. Morbid obesity, BMI 51.7. 9. Lactic acidosis type 2. 10.Chronic kidney disease stage 3 from nephrosclerosis. 11.Acute renal failure, worsening, probably a combination of cardiorenal syndrome and prerenal. The patient was switched to Levaquin. Continue with Silvadene cream. Lasix drip and dopamine was discontinued. Patient given IV fluids. Prognosis is guarded. Follow. MMODL / IJN: [id number] /
[2018-02-25] MEDS: SODIUM CHLORIDE 0.9% 1,000 ML IV SCH ×3 (03:44→20:53)
[2018-02-25] MEDS: AMIODARONE 450 MG in DEXTROSE 5% IN WATER 250 ML IV SCH ×2 (03:44)
[2018-02-25 05:58] LABS: Basophils % (A) 0 %; Eosinophils # (A) 0.1 k/uL (0-0.7); Eosinophils % (A) 0 %; HCT 42.6 % (39.0-53.0); HGB 13.2 gm/dL (13.0-17.5); Hypochromasia Moderate; Lymphocytes # (A) 1.2 k/uL (1.0-4.8); Lymphocytes % (A) 6 %; MCH 28.3 pg (25.0-35.0); MCV 91.4 fL (80.0-100.0); Mean Platelet Volume 12.7; Monocytes % (A) 5 %; Neutrophils # (A) 18.1 k/uL (1.3-7.7); Neutrophils % (A) 87 %; Platelet Count 131 k/uL (150-450); RBC 4.66 m/uL (4.30-5.90); RDW 15.1 % (11.5-15.5); WBC 20.8 k/uL (3.8-10.6)
[2018-02-25 06:08] LABS: Prothrombin Time 10.2 sec (9.0-12.0)
[2018-02-25 06:09] LABS: Calcium 9.1 mg/dL (8.4-10.2); Potassium 4.3 mmol/L (3.5-5.1)
[2018-02-25] MEDS: LEVOTHYROXINE 50 MCG TAB PO SCH (06:17)
[2018-02-25] MEDS: POTASSIUM CHLORIDE ER 20 MEQ TAB.ER PO SCH (10:00)
[2018-02-25] MEDS: METOPROLOL TARTRATE 50 MG TAB PO SCH (10:00)
[2018-02-25] MEDS: CHOLECALCIFEROL 1,000 UNIT TAB PO SCH (10:00)
[2018-02-25] MEDS: ASPIRIN 325 MG TAB PO SCH (10:00)
[2018-02-25] MEDS: NITROGLYCERIN OINT 1 INCH/GM PACKET TOPICAL SCH (10:01)
[2018-02-25] MEDS: ALLOPURINOL 300 MG TAB PO SCH (10:01)
[2018-02-25] MEDS: SODIUM BICARBONATE TAB 650 MG TAB PO SCH ×4 (10:02→20:53)
[2018-02-25] MEDS: AMIODARONE 200 MG TAB PO SCH ×3 (10:25→20:53)
--- NOTE | 2018-02-25 11:51 | P.PN ---
Subjective Progress Note Date: 02/25/18 This is a pleasant 62-year-old male past medical history significant for dyslipidemia, hypertension, left bundle branch block on EKG and morbid obesity. He recently established care with Dr. Goodwin in the office April of this year. At that time it is noted that he also has a history of chronic diastolic heart failure, Dr. Goodwin recommended undergoing echocardiogram, Holter monitor and Lexiscan. The patient never followed up for this test. We have been asked to see him in consultation secondary to elevated troponins.The patient states that around about Thanksgiving time he started noticing significant edema in his left lower extremity. This seemed to be getting progressively worse over time. He takes oral Lasix at home but was showing no improvement in the edema. Venous Doppler was obtained and is negative for DVT. He also complains of cough that has been progressive over the previous 3 weeks with shortness of breath and sometimes exertional dyspnea. Chest x-ray revealed evidence of perihilar infiltrate with developing pulmonary edema versus pneumonic infiltrate. He had been started on IV antibiotics as well has a Lasix infusion. Patient also had evidence of cellulitis, elevated lactic acidosis picture suggestive of sepsis. His echocardiogram with Doppler study revealed severely impaired left ventricular systolic function however the IVC was not dilated and was collapsing so the right atrial pressure was not significantly elevated. Therefore the Lasix drip was discontinued yesterday and patient was actually given IV fluids. His chest x-ray was repeated did not show any evidence of congestive heart failure. Patient also had gone into atrial fibrillation with rapid ventricular response, and was initiated on IV amiodarone. The IV amiodarone today has been discontinued and patient has been started on oral amiodarone. The patient continues to be in atrial fibrillation today. Overall he does state that he is feeling somewhat better, continues to have productive cough of yellow and green sputum. Blood pressure 120/78 with a heart rate in the 90s, 97% on 2 L of oxygen. White blood cell count 20.8, hemoglobin 13, platelet count 131. Sodium 138, potassium 4.3, BUN 73 and creatinine 2.5 today. We will continue current rate of IV fluids today. We will also give the patient 5 mg of Coumadin today. Objective - Vital Signs Vital signs: Vital Signs Temp 98.4 F 02/25/18 08:00 Pulse 97 02/25/18 08:00 Resp 20 02/25/18 08:00 BP 119/79 02/25/18 08:00 Pulse Ox 97 02/25/18 08:00 Intake & Output 02/24/18 02/25/18 02/25/18 18:59 06:59 18:59 Intake Total 259.000 220.353 Output Total 1875 800 Balance 259.000 -1654.647 -800 Weight 160 kg Intake: Intake, IV Titration 259.000 220.353 Amount Amiodarone 450 mg In 259.000 220.353 Dextrose 5% in Water 250 ml @ 1 MG/MIN 34.53 mls/ hr IV .Q7H31M [facility] Rx#: [id number] Output: Urine 1875 800 Other: Voiding Method Urinal # Voids 1 - Exam PHYSICAL EXAMINATION: GENERAL: 62-year-old gentleman in no acute distress at the time of my examination HEENT: Head is atraumatic, normocephalic. Pupils equal, round. Sclera anicteric. Conjunctiva are clear. Mucous membranes of the mouth are moist. Neck is supple. There is no elevated jugular venous pressure. No carotid bruit is heard. HEART EXAMINATION: Heart S1, S2 normal. No murmur or gallop heard. CHEST EXAMINATION: Lungs are clear with fine wheezing heard. ABDOMEN: Soft, obese, nontender. Bowel sounds are heard. No organomegaly noted. EXTREMITIES: 2+ peripheral pulses with 2+ evidence of cellulitis and venous insufficiency . NEUROLOGIC patient is awake, alert and oriented X3. . - Labs CBC & Chem 7: 02/25/18 05:29 02/25/18 05:29 Labs: Abnormal Lab Results - Last 24 Hours (Table) 02/25/18 02/25/18 Range/Units 05:29 05:29 WBC 20.8 H (3.8-10.6) k/uL Plt Count 131 L (150-450) k/uL Neutrophils # 18.1 H (1.3-7.7) k/uL Carbon Dioxide 19 L (22-30) mmol/L BUN 73 H (9-20) mg/dL Creatinine 2.52 H (0.66-1.25) mg/dL Glucose 104 H (74-99) mg/dL Microbiology - Last 24 Hours (Table) 02/24/18 21:12 Sputum Culture - Preliminary Sputum 02/22/18 11:45 Blood Culture - Preliminary Blood No Growth after 48 hours 02/23/18 02:00 Urine Culture - Final Urine,Catheterized Assessment and Plan Plan: Assessment and plan #1 cellulitis and sepsis #2 hyperkalemia and worsening renal failure #3 acute on chronic kidney injury #4 obesity #5 mildly abnormal troponin, not consistent with acute coronary syndrome #6 paroxysmal atrial fibrillation Plan We will discontinue the amiodarone drip and start the patient on oral amiodarone. We will also give the patient 5 mg dose of Coumadin today. Continue current rate of IV fluids and check labs in the morning. DNP note has been reviewed, I agree with a documented findings and plan of care. Patient was seen and examined.
--- NOTE | 2018-02-25 16:58 | P.PN ---
Subjective Progress Note Date: 02/25/18 62-year-old male patient was seen in consultation yesterday because of increased swelling in lower extremity and increased shortness of breath. The patient has congestion heart failure. The patient is an ejection fraction at severely impaired with an EF around 20-25%. Right ventricular is mildly enlarged. Left atrium is severely dilated. No significant pulmonary hypertension measured on the echocardiogram. The patient was placed initially on IV Lasix and the patient was on Lasix drip. Creatinine came up to 3.2. Based on that the diuretics was discontinued and the patient's creatinine is down to 2.5 on today's blood work. Note that he may have an underlying chronic renal insufficiency. His baseline creatinine, admission was at 2.1. His net fluid balance has been negative. The patient has been diuresing well and a negative fluid balance of 1.3 L 40 yesterday and mother 1 L for today. White cell count is stable at 20.8. This of the electrodes are all within normal limits. The patient is on empiric antibiotic coverage with oral Levaquin. The patient is also being antigravity with warfarin and the patient was started on Coumadin 5 mg by mouth daily for chronic atrial fibrillation the PT/INR is subtherapeutic at this point. The patient is on metoprolol for rate control and CHF. Currently on 100 mg of metoprolol a daily basis. The patient is also on Lipitor 20 mg by mouth daily, aspirin and amiodarone 200 mg by mouth 3 times a day. Objective - Vital Signs Vital signs: Vital Signs Temp 97.5 F L 02/25/18 16:00 Pulse 84 02/25/18 16:00 Resp 16 02/25/18 16:00 BP 138/74 02/25/18 16:00 Pulse Ox 94 L 02/25/18 16:00 Intake & Output 02/24/18 02/25/18 02/25/18 18:59 06:59 18:59 Intake Total 259.000 220.353 Output Total 1875 800 Balance 259.000 -1654.647 -800 Weight 160 kg Intake: Intake, IV Titration 259.000 220.353 Amount Amiodarone 450 mg In 259.000 220.353 Dextrose 5% in Water 250 ml @ 1 MG/MIN 34.53 mls/ hr IV [id number] Rx#: [id number] Output: Urine 1875 800 Other: Voiding Method Urinal # Voids 1 - Exam Appearance, comfortable likely distress Head exam was generally normal. There was no scleral icterus or corneal arcus. Mucous membranes were moist. Neck was supple and with jugular venous distension, thyromegaly, or carotid bruits. Carotids were easily palpable bilaterally. There was no adenopathy. There is positive JVDs bilaterally and there is no goiter or neck masses. Lungs sounds are diminished bilaterally lung bases along with some few bibasilar crackles. Heart sounds are irregular S1-S2 and there is no significant murmurs and there is a positive gallop rhythm. Abdominal exam revealed normal bowel sounds. The abdomen was soft, non-tender, and without masses, organomegaly, or appreciable enlargement of the abdominal aorta. Extremities revealed +1 edema in the lower extremity is bilaterally with the left lower oximetry being more swollen compared to right. No open wounds or sores at this point in time. Examination of the skin revealed no evidence of significant rashes, suspicious appearing nevi or other concerning lesions. Neurologic the patient is okay can alert and there is no focal logical deficits - Labs CBC & Chem 7: 02/25/18 05:29 02/25/18 05:29 Labs: Abnormal Lab Results - Last 24 Hours (Table) 02/25/18 02/25/18 Range/Units 05:29 05:29 WBC 20.8 H (3.8-10.6) k/uL Plt Count 131 L (150-450) k/uL Neutrophils # 18.1 H (1.3-7.7) k/uL Carbon Dioxide 19 L (22-30) mmol/L BUN 73 H (9-20) mg/dL Creatinine 2.52 H (0.66-1.25) mg/dL Glucose 104 H (74-99) mg/dL Microbiology - Last 24 Hours (Table) 02/22/18 11:45 Blood Culture - Preliminary Blood No Growth after 72 hours 02/24/18 21:12 Gram Stain - Preliminary Sputum Sputum Culture - Preliminary Assessment and Plan Plan: Assessment 1 acute decompensated heart failure. The patient is known to have chronic systolic heart failure with ejection fraction of 20-25%. 2 troponin leak with questionable underlying coronary artery disease 3 paroxysmal atrial fibrillation. Rate is controlled with a combination of metoprolol and amiodarone and the patient was initiated on medical evaluation with warfarin 4 chronic renal failure with acute kidney injury secondary diuretics until of chronic renal failure. Currently off diuretics and the patient is producing adequate amount of urine output 5 chronic lower extremity edema 6 morbid obesity 7 non-anion gap metabolic acidosis currently on oral bicarbonate 8 hyperlipidemia 9 hypertension 10 hypothyroidism 11 impaired performance and functional status secondary to above-mentioned comorbidities Plan Monitor renal function. Keep the patient off diuretics specially the patient is producing adequate amount of urine output. Not electrodes. Monitor urine output. Monitor the anticoagulation and the patient started on warfarin. Daily PT/INR monitoring. Cardiology is on the case. We'll continue to follow. Prognosis poor baseline above-mentioned comorbidities. Overall pulmonary status is stable for now. We'll wean down the oxygen down to 2 L per minute nasal cannula.
[2018-02-25] MEDS: LEVOFLOXACIN 250 MG TAB PO SCH (17:03)
[2018-02-25] MEDS ORDERED: WARFARIN 5 MG TAB PO ONE (18:00)
--- NOTE | 2018-02-25 19:44 | PN ---
PROGRESS NOTE Patient is seen for followup for acute kidney injury. The patient's renal function has improved with creatinine down from 3.29 yesterday to 2.52. At this time patient is sitting up in bed. He denies any significant pain. He has bilateral lower extremity edema and his legs are wrapped. PHYSICAL EXAMINATION: Blood pressure is 119/79, heart rate 97 per minute. He is afebrile. Examination of the heart: S1, S2. Examination of the lungs: Decreased breath sounds bases. Abdomen is soft, nontender. Examination of lower extremities shows bilateral extremities to be wrapped. LABS: Show sodium 138, potassium 4.3, BUN 73, serum creatinine 2.52, hemoglobin 13.2 g/dL. ASSESSMENT: 1. Acute kidney injury, nonoliguric, mainly associated with cardiorenal syndrome. Renal function slightly better today. The patient remains volume overloaded. He did receive IV fluids. The patient states he is eating. I will discontinue the IV fluids today. 2. Chronic kidney disease secondary to nephrosclerosis. Baseline creatinine 1.45, NKF stage III. 3. Mild anion gap metabolic acidosis secondary to renal failure, maintained on oral sodium bicarb. PLAN: Decrease IV fluids. Repeat labs in a.m. No indication for dialysis today. MMODL / IJN: [id number] /
[2018-02-25] MEDS: SILVER sulfADIAZINE Cream 400 GM 1 APPLIC APPLIC TOPICAL SCH (20:36)
[2018-02-25] MEDS: ATORVASTATIN 20 MG TAB PO SCH (20:53)
--- NOTE | 2018-02-26 00:07 | PN ---
PROGRESS NOTE DATE OF SERVICE: 02/25/2018. PRESENTING COMPLAINT: Tired. INTERVAL HISTORY: The patient initially admitted with CHF exacerbation, has a known EF of 20%. Also on Lasix drip and dopamine drip. Then patient went into renal failure and started giving IV fluids. Also was put on an amiodarone for paroxysmal atrial fibrillation. Also cellulitis lower extremities and venous insufficiency. Remains at the edge of the bed. Prognosis guarded. Did tolerate some diet. The patient is making reasonable urine. REVIEW OF SYSTEMS: Done for constitutional, cardiovascular, GI, pulmonary; relevant findings as above. CURRENT MEDICATIONS: Reviewed that include p.o. Cordarone, p.o. Levaquin, sodium bicarb, saline at 50 mL an hour. PHYSICAL EXAMINATION: VITAL SIGNS: Temperature 97.5, pulse 84, respiratory rate 16, blood pressure 138/74, pulse ox 94% on 2 L. GENERAL APPEARANCE: Sitting at the edge of the bed, tired- appearing. EYES: Pupil equal. Conjunctivae normal. NECK: JVD unable to assess. Mass not palpable. RESPIRATORY: Effort increased. LUNGS: Distant breath sounds. CARDIOVASCULAR: Heart sounds muffled. Edema present with blisters. ABDOMEN: Distended, soft. Liver and spleen not palpable. PSYCHIATRY: Alert and oriented times three. Mood and affect tired-appearing. INVESTIGATIONS: White count 20.8, hemoglobin 13.2, potassium 4.3, BUN 33, creatinine 2.52. ASSESSMENT: 1. Acute on chronic congestive heart exacerbation from systolic dysfunction, ejection fraction 20%. 2. Bilateral lower extremity venous insufficiency, more pronounced in the left lower extremity with blisters. 3. Chronic venous stasis dermatitis, patient's left lower extremity with secondary cellulitis. 4. Bilateral onychomycosis. 5. Essential hypertension. 6. Hyperlipidemia. 7. Hypothyroid. 8. Morbid obesity BMI 51.7. 9. Lactic acidosis type 2. 10.Chronic kidney disease stage 3 from nephrosclerosis. 11.Acute renal failure, combination of cardiorenal syndrome and prerenal. PLAN: The patient is getting IV fluids at 50 mL an hour, being followed by Pulmonary, Cardiology and Nephrology. Prognosis remains guarded. Continue with Silvadene topical cream. Follow. MMODL / IJN: [id number] /
[2018-02-26] MEDS: LEVOTHYROXINE 50 MCG TAB PO SCH (06:34)
[2018-02-26 06:45] LABS: Basophils # (A) 0.1 k/uL (0-0.2); Basophils % (A) 0 %; Eosinophils % (A) 0 %; HCT 41.8 % (39.0-53.0); Hypochromasia Slight; Lymphocytes # (A) 1.3 k/uL (1.0-4.8); Lymphocytes % (A) 8 %; MCH 28.2 pg (25.0-35.0); MCHC 31.2 g/dL (31.0-37.0); MCV 90.3 fL (80.0-100.0); Monocytes # (A) 0.7 k/uL (0-1.0); Monocytes % (A) 4 %; Neutrophils # (A) 14.6 k/uL (1.3-7.7); Neutrophils % (A) 86 %; Platelet Count 149 k/uL (150-450); RBC 4.63 m/uL (4.30-5.90); RDW 15.2 % (11.5-15.5)
[2018-02-26 06:49] LABS: INR 1.1 (<1.2)
[2018-02-26 06:52] LABS: Calcium 9.3 mg/dL (8.4-10.2); Potassium 4.4 mmol/L (3.5-5.1)
[2018-02-26] MEDS: IPRATROPIUM-ALBUTEROL 3 ML NEB INHALATION PRN (08:26)
--- NOTE | 2018-02-26 08:28 | P.GSHP ---
History of Present Illness H&P Date: 02/26/18 Chief Complaint: Dystrophic mycotic nails bilateral feet 62-year-old white male being seen for concerns of dystrophic mycotic nails of the feet bilateral. Patient is admitted for treatment of a cellulitic left lower extremity with concerns for DVT. Patient has underlying congestive heart failure with suspected developing pneumonia. Patient has a history of renal failure and is on no dynamic agents for these. Patient would benefit from podiatric care for the above reasons and is unable to care for his own pedal conditions due to obesity as well as systemic concerns. Past Medical History Past Medical History: Coronary Artery Disease (CAD), Heart Failure, Hyperlipidemia, Hypertension, Thyroid Disorder Additional Past Medical History / Comment(s): 02/22/18 PT WANTS PNE VACCINE. OTHER PMH:gout, 04-17-17 admitted with ARF AND ELEVATED POTASSIUM LEVEL History of Any Multi-Drug Resistant Organisms: None Reported Past Surgical History: Adenoidectomy, Tonsillectomy Additional Past Surgical History / Comment(s): cataracts Past Anesthesia/Blood Transfusion Reactions: No Reported Reaction Smoking Status: Never smoker - Past Family History Father Family Medical History: CVA/TIA Mother Family Medical History: Cancer Additional Family Medical History / Comment(s): from cancer at age 80s Medications and Allergies Home Medications Medication Instructions Recorded Confirmed Type Allopurinol [Zyloprim] 300 mg PO DAILY 04/17/17 02/22/18 History Atorvastatin [Lipitor] 20 mg PO HS 04/17/17 02/22/18 History Levothyroxine Sodium [Synthroid] 50 mcg PO DAILY 04/17/17 02/22/18 History Metoprolol Tartrate [Lopressor] 100 mg PO DAILY 04/17/17 02/22/18 History Potassium Chloride ER [K-Dur 20] 20 meq PO DAILY 04/17/17 02/22/18 History Furosemide [Lasix] 40 mg PO DAILY #0 04/20/17 02/22/18 Rx Cholecalciferol (Vitamin D3) 2,000 unit PO DAILY 02/22/18 02/22/18 History [Vitamin D3] Sodium Bicarbonate Tab 650 mg PO DAILY 02/22/18 02/22/18 History Allergies Allergy/AdvReac Type Severity Reaction Status Date / Time No Known Allergies Allergy Verified 02/22/18 11:44 Surgical - Exam Vital Signs Temp Pulse Resp BP Pulse Ox 98.5 F 117 H 22 93/58 91 L 02/22/18 09:31 02/22/18 09:31 02/22/18 09:31 02/22/18 09:31 02/22/18 09:31 - Cardiovascular Patient's pedal pulses are diminished bilateral. Patient has no digital hair 10 the extremities are warm with some plexus venous filling time a proximally 5 seconds 10. There is pitting edema of bilateral lower extremities with cellulitis of the left lower extremity to the lower distal two thirds of the leg. - Integumentary Patient has elongated dystrophic mycotic nails 10 causing localized erythema edema and pain with palpation. The remaining dermal exam was not performed as patient is being treated with compression due to the lymphedema and congestive heart failure. - Neurologic All epicritic and pallesthetic sensations are grossly intact and symmetrical bilateral - Musculoskeletal Patient has decreased range of motion of the ankle joint bilateral range of motion of the subtalar joint and midtarsal joint and metatarsophalangeal joints are grossly normal symmetrical bilateral patient has hammering of digits 2 through 4 and 5 bilateral. All inverters everters plantar flexors dorsiflexors grossly intact and symmetrical bilateral Results - Labs 02/26/18 06:12 02/26/18 06:12 Abnormal Lab Results - Last 24 Hours (Table) 02/26/18 02/26/18 Range/Units 06:12 06:12 WBC 17.0 H (3.8-10.6) k/uL Plt Count 149 L (150-450) k/uL Neutrophils # 14.6 H (1.3-7.7) k/uL Chloride 108 H (98-107) mmol/L Carbon Dioxide 19 L (22-30) mmol/L BUN 61 H (9-20) mg/dL Creatinine 1.53 H (0.66-1.25) mg/dL Microbiology - Last 24 Hours (Table) 02/22/18 11:45 Blood Culture - Preliminary Blood No Growth after 72 hours 02/24/18 21:12 Gram Stain - Preliminary Sputum Sputum Culture - Preliminary Diabetes panel 02/26/18 Range/Units 06:12 Sodium 140 (137-145) mmol/L Potassium 4.4 (3.5-5.1) mmol/L Chloride 108 H (98-107) mmol/L Carbon Dioxide 19 L (22-30) mmol/L BUN 61 H (9-20) mg/dL Creatinine 1.53 H (0.66-1.25) mg/dL Glucose 93 (74-99) mg/dL Calcium 9.3 (8.4-10.2) mg/dL Calcium panel 02/26/18 Range/Units 06:12 Calcium 9.3 (8.4-10.2) mg/dL Pituitary panel 02/26/18 Range/Units 06:12 Sodium 140 (137-145) mmol/L Potassium 4.4 (3.5-5.1) mmol/L Chloride 108 H (98-107) mmol/L Carbon Dioxide 19 L (22-30) mmol/L BUN 61 H (9-20) mg/dL Creatinine 1.53 H (0.66-1.25) mg/dL Glucose 93 (74-99) mg/dL Calcium 9.3 (8.4-10.2) mg/dL Adrenal panel 02/26/18 Range/Units 06:12 Sodium 140 (137-145) mmol/L Potassium 4.4 (3.5-5.1) mmol/L Chloride 108 H (98-107) mmol/L Carbon Dioxide 19 L (22-30) mmol/L BUN 61 H (9-20) mg/dL Creatinine 1.53 H (0.66-1.25) mg/dL Glucose 93 (74-99) mg/dL Calcium 9.3 (8.4-10.2) mg/dL Assessment and Plan Assessment: Painful elongated mycotic nails 10 Congestive heart failure Renal failure Suspected pneumonia Peripheral arterial disease and lateral Plan: Today after thorough review of patient's chart and with patient's consent knowledge we reduce the mycotic nails manually 10 of all mycotic debris to the proximal nail fold when possible as the nails were lytic 10. Patient would benefit from continued podiatric intervention post discharge from this facility. Thank you for this consult
[2018-02-26] MEDS: CHOLECALCIFEROL 1,000 UNIT TAB PO SCH (10:16)
[2018-02-26] MEDS: METOPROLOL TARTRATE 50 MG TAB PO SCH (10:16)
[2018-02-26] MEDS: AMIODARONE 200 MG TAB PO SCH ×3 (10:16→21:04)
[2018-02-26] MEDS: ASPIRIN 81 MG PO SCH (10:16)
[2018-02-26] MEDS: SODIUM BICARBONATE TAB 650 MG TAB PO SCH ×4 (10:17→21:04)
[2018-02-26] MEDS: POTASSIUM CHLORIDE ER 20 MEQ TAB.ER PO SCH (10:17)
[2018-02-26] MEDS: ALLOPURINOL 300 MG TAB PO SCH (10:17)
--- NOTE | 2018-02-26 12:43 | P.PN ---
Subjective Progress Note Date: 02/26/18 62-year-old male patient was seen in consultation yesterday because of increased swelling in lower extremity and increased shortness of breath. The patient has congestion heart failure. The patient is an ejection fraction at severely impaired with an EF around 20-25%. Right ventricular is mildly enlarged. Left atrium is severely dilated. No significant pulmonary hypertension measured on the echocardiogram. The patient was placed initially on IV Lasix and the patient was on Lasix drip. Creatinine came up to 3.2. Based on that the diuretics was discontinued and the patient's creatinine is down to 2.5 on today's blood work. Note that he may have an underlying chronic renal insufficiency. His baseline creatinine, admission was at 2.1. His net fluid balance has been negative. The patient has been diuresing well and a negative fluid balance of 1.3 L 40 yesterday and mother 1 L for today. White cell count is stable at 20.8. This of the electrodes are all within normal limits. The patient is on empiric antibiotic coverage with oral Levaquin. The patient is also being antigravity with warfarin and the patient was started on Coumadin 5 mg by mouth daily for chronic atrial fibrillation the PT/INR is subtherapeutic at this point. The patient is on metoprolol for rate control and CHF. Currently on 100 mg of metoprolol a daily basis. The patient is also on Lipitor 20 mg by mouth daily, aspirin and amiodarone 200 mg by mouth 3 times a day. On 02/27/2008 and I'm seeing this patient for a follow-up. No new complaints for today. Hemodynamically stable. Producing adequate amount of urine output. Legs are still swollen although he is producing good amount of urine output in the edema according to him is improving. His creatinine is down to 1.53 and is recovering from his acute renal failure. His white cell count is down to 17. No fever. No chills. Is currently off states of oxygen nasal cannula with a pulse ox of 95%. His overall performance and functional status is extremely poor. He denies having any shortness of breath at rest. He is tolerating his diet. He was started on medical condition with warfarin and the PT/INR remains subtherapeutic while being on 5 mg of Coumadin. His INR from today is at 1.1. Objective - Vital Signs Vital signs: Vital Signs Temp 98 F 02/26/18 11:43 Pulse 68 02/26/18 11:43 Resp 20 02/26/18 11:43 BP 135/87 02/26/18 11:43 Pulse Ox 95 02/26/18 11:43 Intake & Output 02/25/18 02/26/18 02/26/18 18:59 06:59 18:59 Intake Total 220 240 Output Total 950 1150 400 Balance -950 -930 -160 Weight 156.9 kg 156.9 kg Intake: Oral 220 240 Output: Urine 950 1150 400 Other: Voiding Method Urinal Urinal - Exam Appearance, comfortable likely distress Head exam was generally normal. There was no scleral icterus or corneal arcus. Mucous membranes were moist. Neck was supple and with jugular venous distension, thyromegaly, or carotid bruits. Carotids were easily palpable bilaterally. There was no adenopathy. There is positive JVDs bilaterally and there is no goiter or neck masses. Lungs sounds are diminished bilaterally lung bases along with some few bibasilar crackles. Heart sounds are irregular S1-S2 and there is no significant murmurs and there is a positive gallop rhythm. Abdominal exam revealed normal bowel sounds. The abdomen was soft, non-tender, and without masses, organomegaly, or appreciable enlargement of the abdominal aorta. Extremities revealed +1 edema in the lower extremity is bilaterally with the left lower oximetry being more swollen compared to right. No open wounds or sores at this point in time. Examination of the skin revealed no evidence of significant rashes, suspicious appearing nevi or other concerning lesions. Neurologic the patient is okay can alert and there is no focal logical deficits - Labs CBC & Chem 7: 02/26/18 06:12 02/26/18 06:12 Labs: Abnormal Lab Results - Last 24 Hours (Table) 02/26/18 02/26/18 Range/Units 06:12 06:12 WBC 17.0 H (3.8-10.6) k/uL Plt Count 149 L (150-450) k/uL Neutrophils # 14.6 H (1.3-7.7) k/uL Chloride 108 H (98-107) mmol/L Carbon Dioxide 19 L (22-30) mmol/L BUN 61 H (9-20) mg/dL Creatinine 1.53 H (0.66-1.25) mg/dL Microbiology - Last 24 Hours (Table) 02/22/18 11:45 Blood Culture - Preliminary Blood No Growth after 72 hours 02/24/18 21:12 Gram Stain - Preliminary Sputum Sputum Culture - Preliminary Assessment and Plan Plan: Assessment 1 acute decompensated heart failure. The patient is known to have chronic systolic heart failure with ejection fraction of 20-25%. The patient is improving. The patient is producing adequate amount of urine output. He is in a negative fluid balance. 2 troponin leak with questionable underlying coronary artery disease 3 paroxysmal atrial fibrillation. Rate is controlled with a combination of metoprolol and amiodarone and the patient was initiated on medical evaluation with warfarin. The PT/INR remains subtherapeutic. 4 chronic renal failure with acute kidney injury secondary diuretics until of chronic renal failure. Currently off diuretics and the patient is producing adequate amount of urine output, and acute kidney injury is improving and the patient's creatinine is down to 1.5 5 chronic lower extremity edema 6 morbid obesity 7 non-anion gap metabolic acidosis currently on oral bicarbonate 8 hyperlipidemia 9 hypertension 10 hypothyroidism 11 impaired performance and functional status secondary to above-mentioned comorbidities Plan Continue same treatment. Monitor renal function. Keep the patient on diuretics for now. He is producing good urine output. Continue anticoagulation with warfarin. Monitor the PT/INR. We'll continue to follow.
[2018-02-26] MEDS: SILVER sulfADIAZINE Cream 400 GM 1 APPLIC APPLIC TOPICAL SCH ×2 (14:00→21:04)
--- NOTE | 2018-02-26 14:51 | P.PN ---
Subjective Progress Note Date: 02/26/18 This is a pleasant 62-year-old male past medical history significant for dyslipidemia, hypertension, left bundle branch block on EKG and morbid obesity. He recently established care with Dr. Goodwin in the office April of this year. At that time it is noted that he also has a history of chronic diastolic heart failure, Dr. Goodwin recommended undergoing echocardiogram, Holter monitor and Lexiscan. The patient never followed up for this test. We have been asked to see him in consultation secondary to elevated troponins.The patient states that around about Thanksgiving time he started noticing significant edema in his left lower extremity. This seemed to be getting progressively worse over time. He takes oral Lasix at home but was showing no improvement in the edema. Venous Doppler was obtained and is negative for DVT. He also complains of cough that has been progressive over the previous 3 weeks with shortness of breath and sometimes exertional dyspnea. Chest x-ray revealed evidence of perihilar infiltrate with developing pulmonary edema versus pneumonic infiltrate. He had been started on IV antibiotics as well has a Lasix infusion. Patient also had evidence of cellulitis, elevated lactic acidosis picture suggestive of sepsis. His echocardiogram with Doppler study revealed severely impaired left ventricular systolic function however the IVC was not dilated and was collapsing so the right atrial pressure was not significantly elevated. Therefore the Lasix drip was discontinued yesterday and patient was actually given IV fluids. His chest x-ray was repeated did not show any evidence of congestive heart failure. Patient also had gone into atrial fibrillation with rapid ventricular response, and was initiated on IV amiodarone. The IV amiodarone today has been discontinued and patient has been started on oral amiodarone. The patient continues to be in atrial fibrillation today. Overall he does state that he is feeling somewhat better, continues to have productive cough of yellow and green sputum. Blood pressure 120/78 with a heart rate in the 90s, 97% on 2 L of oxygen. White blood cell count 20.8, hemoglobin 13, platelet count 131. Sodium 138, potassium 4.3, BUN 73 and creatinine 2.5 today. We will continue current rate of IV fluids today. We will also give the patient 5 mg of Coumadin today. 02/26/2018 Patient was seen and examined this morning, overall doing well. Hemodynamically stable. Continues to have bilateral edema however urine output is excellent, creatinine improving, 1.5 today. No fever or chills. INR today 1.1, we will give 5 mg of Coumadin today. Objective - Vital Signs Vital signs: Vital Signs Temp 98 F 02/26/18 11:43 Pulse 68 02/26/18 11:43 Resp 20 02/26/18 11:43 BP 135/87 02/26/18 11:43 Pulse Ox 95 02/26/18 11:43 Intake & Output 02/25/18 02/26/18 02/26/18 18:59 06:59 18:59 Intake Total 220 240 Output Total 950 1150 400 Balance -950 -930 -160 Weight 156.9 kg 156.9 kg Intake: Oral 220 240 Output: Urine 950 1150 400 Other: Voiding Method Urinal Urinal - Exam PHYSICAL EXAMINATION: GENERAL: 62-year-old gentleman in no acute distress at the time of my examination HEENT: Head is atraumatic, normocephalic. Pupils equal, round. Sclera anicteric. Conjunctiva are clear. Mucous membranes of the mouth are moist. Neck is supple. There is no elevated jugular venous pressure. No carotid bruit is heard. HEART EXAMINATION: Heart S1, S2 normal. No murmur or gallop heard. CHEST EXAMINATION: Lungs are clear with fine wheezing heard. ABDOMEN: Soft, obese, nontender. Bowel sounds are heard. No organomegaly noted. EXTREMITIES: 2+ peripheral pulses with 2+ evidence of cellulitis and venous insufficiency . NEUROLOGIC patient is awake, alert and oriented X3. . - Labs CBC & Chem 7: 02/26/18 06:12 02/26/18 06:12 Labs: Abnormal Lab Results - Last 24 Hours (Table) 02/26/18 02/26/18 Range/Units 06:12 06:12 WBC 17.0 H (3.8-10.6) k/uL Plt Count 149 L (150-450) k/uL Neutrophils # 14.6 H (1.3-7.7) k/uL Chloride 108 H (98-107) mmol/L Carbon Dioxide 19 L (22-30) mmol/L BUN 61 H (9-20) mg/dL Creatinine 1.53 H (0.66-1.25) mg/dL Microbiology - Last 24 Hours (Table) 02/22/18 11:45 Blood Culture - Preliminary Blood No Growth after 96 hours 02/24/18 21:12 Gram Stain - Preliminary Sputum Sputum Culture - Preliminary Assessment and Plan Plan: Assessment and plan #1 cellulitis and sepsis #2 hyperkalemia and worsening renal failure #3 acute on chronic kidney injury #4 obesity #5 mildly abnormal troponin, not consistent with acute coronary syndrome #6 paroxysmal atrial fibrillation Plan We'll give the patient 5 mg of Coumadin today, continue to check daily PT/INRs. DNP note has been reviewed, I agree with a documented findings and plan of care. Patient was seen and examined.
[2018-02-26] MEDS: LEVOFLOXACIN 250 MG TAB PO SCH (16:59)
[2018-02-26] MEDS ORDERED: WARFARIN 5 MG TAB PO ONE (18:00)
[2018-02-26] MEDS: SODIUM CHLORIDE 0.9% 1,000 ML IV SCH (21:03)
[2018-02-26] MEDS: ATORVASTATIN 20 MG TAB PO SCH (21:04)
--- NOTE | 2018-02-26 21:09 | PN ---
PROGRESS NOTE Patient was seen this morning for followup for acute kidney injury. He was started on IV fluids. Renal function has improved. IV fluids were decreased to about 50 mL an hour yesterday. The patient has had good urine output of about 2.1 L over 24 hours. His creatinine is down to 1.5. However, he appears volume overloaded. The saline was decreased to 50 mL an hour yesterday. EXAMINATION: This morning, blood pressure was 135/87, heart rate of 68 per minute. Patient is afebrile. Examination of the heart S1, S2. Examination of the lungs, decreased breath sounds at bases. Abdomen is soft, obese, nontender. Examination of lower extremity shows 3+ edema bilaterally with chronic skin changes. LAB: Show sodium 140, potassium 4.4, chloride 108, BUN 61, serum creatinine 1.53, hemoglobin of 13.0 g/dL. Calcium is 9.3. ASSESSMENT: 1. Acute kidney injury mainly cardiorenal. Renal function improved with IV fluids. However, patient appears volume overloaded. I will discontinue the IV fluids today. We will repeat labs in a.m. I will also start the patient on loop diuretics tomorrow. 2. Chronic kidney disease stage 3 secondary to nephrosclerosis. Baseline creatinine about 1.45. 3. Mild metabolic acidosis. Maintained on oral sodium bicarb. 4. Cardiomyopathy with ejection fraction 20-25 percent with severely dilated left atrium. PLAN: Discontinue IV fluids. Start loop diuretics in a.m. and continue to avoid nephrotoxic agents. MMODL / IJN: [id number] /
[2018-02-26] MEDS ORDERED: CEFDINIR 300 MG CAP PO SCH (23:45)
--- NOTE | 2018-02-27 00:14 | PN ---
PROGRESS NOTE DATE OF SERVICE: 02/26/2018. PRESENTING COMPLAINT: Tired. INTERVAL HISTORY: Patient admitted with CHF exacerbation. Initially did get Lasix drip and dopamine drip and actually went into renal failure, was then put on IV fluids earlier today. Later in the afternoon, IV fluids were discontinued by Dr. aPz. The patient has been off Lasix. Also on amiodarone for paroxysmal atrial fibrillation. Renal function is actually getting better. Also being treated for cellulitis of lower extremity and venous insufficiency. Breathing is somewhat better. The patient is also bringing up some yellow-green sputum. REVIEW OF SYSTEMS: Done for constitutional, cardiovascular, GI, pulmonary; relevant findings overall feeling a bit better. CURRENT MEDICATIONS: Reviewed, that include DuoNeb, Cordarone, Levaquin, sodium bicarb. IV fluids were discontinued this afternoon. PHYSICAL EXAMINATION: Temperature 97.6, pulse 100, respirations 20, blood pressure 130/71, pulse ox 96 percent on 3 L. GENERAL APPEARANCE: Sitting at the edge of bed, looking more relaxed. EYES: Pupils equal. Conjunctivae normal. NECK: JVD unable to assess. Mass not palpable. LUNGS: Distant breath sounds. CARDIOVASCULAR: Heart sounds muffled. Edema present. ABDOMEN: Distended, soft. Liver and spleen not palpable. PSYCHIATRY: Alert and oriented x3. Mood and affect appears to be better. INVESTIGATIONS: White count 17, hemoglobin 4.4, BUN 61, creatinine 1.53. ASSESSMENT: 1. Acute on chronic congestive heart failure exacerbation from systolic dysfunction, ejection fraction 20%, now euvolemic. 2. Bilateral lower extremity venous insufficiency, more pronounced left lower extremity with blisters. 3. Chronic venous stasis dermatitis with acute cellulitis on the left lower extremity. 4. Bilateral onychomycosis. Did undergo nail clipping by Dr. Murrieta. 5. Essential hypertension. 6. Hyperlipidemia. 7. Hypothyroid. 8. Morbid obesity, BMI 51.7. 9. Lactic acidosis type 2. 10.Chronic kidney disease stage 3 from nephrosclerosis. 11.Acute renal failure with combination of cardiorenal and prerenal with improvement. PLAN: IV fluids were discontinued this afternoon. Lasix probably will be resumed tomorrow. We will keep the patient on Levaquin and add clindamycin for the lower extremity cellulitis. MMODL / IJN: [id number] /
[2018-02-27] MEDS: CLINDAMYCIN 150 MG CAP PO SCH ×4 (04:24→19:52)
[2018-02-27 06:35] LABS: Basophils # (A) 0.1 k/uL (0-0.2); Basophils % (A) 1 %; Eosinophils # (A) 0.1 k/uL (0-0.7); Eosinophils % (A) 0 %; HCT 42.2 % (39.0-53.0); HGB 12.9 gm/dL (13.0-17.5); Hypochromasia Slight; Lymphocytes # (A) 1.5 k/uL (1.0-4.8); Lymphocytes % (A) 8 %; MCH 27.6 pg (25.0-35.0); MCHC 30.5 g/dL (31.0-37.0); MCV 90.5 fL (80.0-100.0); Monocytes % (A) 6 %; Neutrophils # (A) 14.9 k/uL (1.3-7.7); Neutrophils % (A) 84 %; Platelet Count 179 k/uL (150-450); RBC 4.66 m/uL (4.30-5.90); RDW 15.4 % (11.5-15.5); WBC 17.8 k/uL (3.8-10.6)
[2018-02-27 06:36] LABS: INR 1.3 (<1.2)
[2018-02-27] MEDS: LEVOTHYROXINE 50 MCG TAB PO SCH (06:40)
[2018-02-27 07:10] LABS: Large Platelets Present
[2018-02-27] MEDS: ASPIRIN 81 MG PO SCH (10:04)
[2018-02-27] MEDS: ALLOPURINOL 300 MG TAB PO SCH (10:04)
[2018-02-27] MEDS: AMIODARONE 200 MG TAB PO SCH ×3 (10:04→19:52)
[2018-02-27] MEDS: CHOLECALCIFEROL 1,000 UNIT TAB PO SCH (10:04)
[2018-02-27] MEDS: POTASSIUM CHLORIDE ER 20 MEQ TAB.ER PO SCH (10:04)
[2018-02-27] MEDS: SILVER sulfADIAZINE Cream 400 GM 1 APPLIC APPLIC TOPICAL SCH ×2 (10:05→23:14)
[2018-02-27] MEDS: SODIUM BICARBONATE TAB 650 MG TAB PO SCH ×4 (10:05→19:52)
[2018-02-27] MEDS: FUROSEMIDE 10 MG/ML 4 ML VIAL IV SCH ×2 (10:28→19:52)
[2018-02-27] MEDS: METOPROLOL TARTRATE 50 MG TAB PO SCH (10:28)
[2018-02-27 12:02] LABS: Albumin 2.9 g/dL (3.5-5.0); Calcium 9.3 mg/dL (8.4-10.2); Potassium 4.4 mmol/L (3.5-5.1); Total Protein 5.9 g/dL (6.3-8.2)
--- NOTE | 2018-02-27 13:53 | P.PN ---
Subjective Progress Note Date: 02/27/18 This is a pleasant 62-year-old male past medical history significant for dyslipidemia, hypertension, left bundle branch block on EKG and morbid obesity. He recently established care with Dr. Goodwin in the office April of this year. At that time it is noted that he also has a history of chronic diastolic heart failure, Dr. Goodwin recommended undergoing echocardiogram, Holter monitor and Lexiscan. The patient never followed up for this test. We have been asked to see him in consultation secondary to elevated troponins.The patient states that around about Thanksgiving time he started noticing significant edema in his left lower extremity. This seemed to be getting progressively worse over time. He takes oral Lasix at home but was showing no improvement in the edema. Venous Doppler was obtained and is negative for DVT. He also complains of cough that has been progressive over the previous 3 weeks with shortness of breath and sometimes exertional dyspnea. Chest x-ray revealed evidence of perihilar infiltrate with developing pulmonary edema versus pneumonic infiltrate. He had been started on IV antibiotics as well has a Lasix infusion. Patient also had evidence of cellulitis, elevated lactic acidosis picture suggestive of sepsis. His echocardiogram with Doppler study revealed severely impaired left ventricular systolic function however the IVC was not dilated and was collapsing so the right atrial pressure was not significantly elevated. Therefore the Lasix drip was discontinued yesterday and patient was actually given IV fluids. His chest x-ray was repeated did not show any evidence of congestive heart failure. Patient also had gone into atrial fibrillation with rapid ventricular response, and was initiated on IV amiodarone. The IV amiodarone today has been discontinued and patient has been started on oral amiodarone. The patient continues to be in atrial fibrillation today. Overall he does state that he is feeling somewhat better, continues to have productive cough of yellow and green sputum. Blood pressure 120/78 with a heart rate in the 90s, 97% on 2 L of oxygen. White blood cell count 20.8, hemoglobin 13, platelet count 131. Sodium 138, potassium 4.3, BUN 73 and creatinine 2.5 today. We will continue current rate of IV fluids today. We will also give the patient 5 mg of Coumadin today. 02/26/2018 Patient was seen and examined this morning, overall doing well. Hemodynamically stable. Continues to have bilateral edema however urine output is excellent, creatinine improving, 1.5 today. No fever or chills. INR today 1.1, we will give 5 mg of Coumadin today. 02/27/2018 Patient was seen and examined this morning, overall is doing better. Continues to have peripheral edema, sodium 140, potassium 4.4, BUN 48, creatinine 1.2. INR today is 1.3. Patient was initiated today on IV diuretics, by nephrology, follow the renal function closely. 5 mg of Coumadin today. Objective - Vital Signs Vital signs: Vital Signs Temp 97.5 F L 02/27/18 08:00 Pulse 57 L 02/27/18 12:00 Resp 16 02/27/18 12:00 BP 107/78 02/27/18 12:00 Pulse Ox 95 02/27/18 12:00 Intake & Output 02/26/18 02/27/18 02/27/18 18:59 06:59 18:59 Intake Total 480 200 Output Total 400 380 Balance 80 -380 200 Weight 156.9 kg 157.2 kg Intake: Oral 480 200 Output: Urine 400 380 Other: Voiding Method Urinal Urinal # Bowel Movements 1 - Exam PHYSICAL EXAMINATION: GENERAL: 62-year-old gentleman in no acute distress at the time of my examination HEENT: Head is atraumatic, normocephalic. Pupils equal, round. Sclera anicteric. Conjunctiva are clear. Mucous membranes of the mouth are moist. Neck is supple. There is no elevated jugular venous pressure. No carotid bruit is heard. HEART EXAMINATION: Heart S1, S2 normal. No murmur or gallop heard. CHEST EXAMINATION: Lungs are clear with fine wheezing heard. ABDOMEN: Soft, obese, nontender. Bowel sounds are heard. No organomegaly noted. EXTREMITIES: 2+ peripheral pulses with 2+ evidence of cellulitis and venous insufficiency . NEUROLOGIC patient is awake, alert and oriented X3. . - Labs CBC & Chem 7: 02/27/18 06:11 02/27/18 06:11 Labs: Abnormal Lab Results - Last 24 Hours (Table) 02/27/18 02/27/18 02/27/18 Range/Units 06:11 06:11 06:11 WBC 17.8 H (3.8-10.6) k/uL Hgb 12.9 L (13.0-17.5) gm/dL MCHC 30.5 L (31.0-37.0) g/dL Neutrophils # 14.9 H (1.3-7.7) k/uL INR 1.3 H (<1.2) Chloride 109 H (98-107) mmol/L Carbon Dioxide 21 L (22-30) mmol/L BUN 48 H (9-20) mg/dL Creatinine 1.29 H (0.66-1.25) mg/dL Glucose 109 H (74-99) mg/dL Total Protein 5.9 L (6.3-8.2) g/dL Albumin 2.9 L (3.5-5.0) g/dL Microbiology - Last 24 Hours (Table) 02/24/18 21:12 Gram Stain - Final Sputum Sputum Culture - Final 02/22/18 11:45 Blood Culture - Preliminary Blood No Growth after 96 hours Assessment and Plan Plan: Assessment and plan #1 cellulitis and sepsis #2 hyperkalemia and worsening renal failure #3 acute on chronic kidney injury #4 obesity #5 mildly abnormal troponin, not consistent with acute coronary syndrome #6 paroxysmal atrial fibrillation Plan We'll give the patient 5 mg of Coumadin today, continue to check daily PT/INRs. Nephrology did resume IV Lasix today, we will monitor renal function closely. DNP note has been reviewed, I agree with a documented findings and plan of care. Patient was seen and examined.
--- NOTE | 2018-02-27 14:09 | CDI ---
Last Revision, February 2017 Documentation Clarification Form Date: 02/27/2018 1:50:20 PM From: Fern Boyd [facility], CCDS Admit Date: 02/22/2018 1:46:00 PM Patient Name: Omid López Visit Number: [id number] Discharge Date: ATTENTION: The Clinical Documentation Specialists (CDI) and [facility] Coding Staff appreciate your assistance in clarifying documentation. Please respond to the clarification below the line at the bottom and electronically sign. The CDI & [facility] Coding staff will review the response and follow-up if needed. Please note: Queries are made part of the Legal Health Record. If you have any questions, please contact the author of this message via ITS. Carter Moe MD: There is conflicting documentation in the record regarding sepsis: Per the History & Physical 02/22: Lactic acidosis, probably type 2, not from sepsis. Per the 02/23 Cardio Consult: Mildly elevated troponins not indicative of an acute coronary event may be related to sepsis. Subsequent cardiology progress notes: Cellulitis and Sepsis. History/Risk Factors: Chronic systolic CHF, CKD III, CAD, Hypertension, Hyperlipidemia, Morbid Obesity w/BMI >50, chronic lower extremity venous insufficiency. Clinical Indicators: Presented to the ER with red, painful, swollen lower legs, blisters, oozing. Has had cough, MARKO & chills. Dyspneic with wheezing & rhonchi in ER, Bilateral onychomycosis. VS: T 99.3 per ED note, P 117^, R 22-34^, BP 93/58*, PO 91 RA* LAB: WBC 18.2^, Neut 16.90^, Lactic Acid 2.6-3.0^^, Trops 0.2^, 0.3^, 0.2^. UA: Dark brown, turbid, 1+ protein, Tr ketones, Sm blood, WBC 9. RAD: CXR: Patchy right perihilar infiltrate may be developing pulmonary edema vs a pneumonic infiltrate. Cultures: Blood: pending neg @ 96 hrs. Urine: negative final. Sputum: negative final. Treatment: IV Levaquin, Albuterol INH, IV fl 1000, IV fl 100, IV Solumedrol, IV fluid bolus x1, IV Heparin, IV Lasix. 02/23: IV Clindamycin added. In your professional opinion, please clarify if these findings signify one of the following conditions, whether the condition is POA, and cause, if known: Sepsis ruled in o Due to: please specify condition. Severe Sepsis Septic Shock Sepsis ruled out Other, please specify: Unable to determine If ruled in: Present on Admission: Yes or No no sepsis. MTDD
--- NOTE | 2018-02-27 14:19 | CDI ---
Last Revision, February 2017 Documentation Clarification Form Date: 02/27/2018 2:12:10 PM From: Fern BoydTAE, CCDS Admit Date: 02/22/2018 1:46:00 PM Patient Name: Omid López Visit Number: [id number] Discharge Date: ATTENTION: The Clinical Documentation Specialists (CDI) and [facility] Coding Staff appreciate your assistance in clarifying documentation. Please respond to the clarification below the line at the bottom and electronically sign. The CDI & [facility] Coding staff will review the response and follow-up if needed. Please note: Queries are made part of the Legal Health Record. If you have any questions, please contact the author of this message via ITS. Carter Moe MD: There is conflicting documentation regarding the diagnosis of pneumonia: Per the ED note: "I do believe the patient at this time has a mixed picture of CHF & developing pneumonia. Per the History & Physical 02/22: "I doubt that the patient has pneumonia." Per the 02/23 Cardio Consult: Pneumonia protocol. Per the 02/23 Pulmonary Consult: "Mild purulent tracheobronchitis". Per the Podiatry Consult 02/26: "Suspected pneumonia" History/Risk Factors: Chronic systolic CHF, CKD III, CAD, Hypertension, Hyperlipidemia, Morbid Obesity w/BMI >50, chronic lower extremity venous insufficiency. Clinical Indicators: Presented to the ER with red, painful, swollen lower legs, blisters, oozing. Has had cough, MARKO & chills. Dyspneic with wheezing & rhonchi in ER, Bilateral onychomycosis. VS: T 99.3 per ED note, P 117^, R 22-34^, BP 93/58*, PO 91 RA* LAB: WBC 18.2^, Neut 16.90^, Lactic Acid 2.6-3.0^^, Trops 0.2^, 0.3^, 0.2^. UA: Dark brown, turbid, 1+ protein, Tr ketones, Sm blood, WBC 9. RAD: CXR: Patchy right perihilar infiltrate may be developing pulmonary edema vs a pneumonic infiltrate. Cultures: Blood: pending neg @ 96 hrs. Urine: negative final. Sputum: negative final. Treatment: IV Levaquin, Albuterol INH, IV fl 1000, IV fl 100, IV Solumedrol, IV fluid bolus x1, IV Heparin, IV Lasix. 02/23: IV Clindamycin added. In your professional opinion, please clarify if these findings signify one of the following conditions, whether the condition is POA, and cause, if known: Pneumonia ruled in o If ruled in, specify type if known. Pneumonia ruled out Other, please specify Unable to determine If ruled in: Present on Admission: Yes or No acute brochitis. no pneumonia MTDD
--- NOTE | 2018-02-27 15:34 | P.PN ---
Subjective Progress Note Date: 02/27/18 Principal diagnosis: Acute decompensated heart failure, with systolic dysfunction, patient has a chronic systolic heart failure with ejection fraction 20-25%, elevated troponins , paroxysmal A. fib 62-year-old male patient was seen in consultation yesterday because of increased swelling in lower extremity and increased shortness of breath. The patient has congestion heart failure. The patient is an ejection fraction at severely impaired with an EF around 20-25%. Right ventricular is mildly enlarged. Left atrium is severely dilated. No significant pulmonary hypertension measured on the echocardiogram. The patient was placed initially on IV Lasix and the patient was on Lasix drip. Creatinine came up to 3.2. Based on that the diuretics was discontinued and the patient's creatinine is down to 2.5 on today's blood work. Note that he may have an underlying chronic renal insufficiency. His baseline creatinine, admission was at 2.1. His net fluid balance has been negative. The patient has been diuresing well and a negative fluid balance of 1.3 L 40 yesterday and mother 1 L for today. White cell count is stable at 20.8. This of the electrodes are all within normal limits. The patient is on empiric antibiotic coverage with oral Levaquin. The patient is also being antigravity with warfarin and the patient was started on Coumadin 5 mg by mouth daily for chronic atrial fibrillation the PT/INR is subtherapeutic at this point. The patient is on metoprolol for rate control and CHF. Currently on 100 mg of metoprolol a daily basis. The patient is also on Lipitor 20 mg by mouth daily, aspirin and amiodarone 200 mg by mouth 3 times a day. On 02/27/2008 and I'm seeing this patient for a follow-up. No new complaints for today. Hemodynamically stable. Producing adequate amount of urine output. Legs are still swollen although he is producing good amount of urine output in the edema according to him is improving. His creatinine is down to 1.53 and is recovering from his acute renal failure. His white cell count is down to 17. No fever. No chills. Is currently off states of oxygen nasal cannula with a pulse ox of 95%. His overall performance and functional status is extremely poor. He denies having any shortness of breath at rest. He is tolerating his diet. He was started on medical condition with warfarin and the PT/INR remains subtherapeutic while being on 5 mg of Coumadin. His INR from today is at 1.1. On 02/2018 patient seen in follow-up care unit, remains on 3 days per nasal cannula, his pulse ox 95%, his respirations are even and nonlabored. Repeat chest x-ray was done, today's chest x-ray shows improvement in aeration of the bases. His fluid volume status is improving, lower extremity edema is improving , patient is diuresing, -200 ML Over last 24 hours. His labs have been reviewed , WBC 17.8, hemoglobin is 12.9, sodium is 140, potassium is 4.4, chloride is 109 , CO2 is 21, renal profile is improving, BUN is 48 and creatinine is 1.29. Nasonex IV Lasix of 40 mg every 12 hours, nephrology is following. Wound care to lower extremity cellulitis, he is on oral sodium bicarbonate, and was started on Coumadin anticoagulation. Objective - Vital Signs Vital signs: Vital Signs Temp 97.5 F L 02/27/18 08:00 Pulse 57 L 02/27/18 12:00 Resp 16 02/27/18 12:00 BP 107/78 02/27/18 12:00 Pulse Ox 95 02/27/18 12:00 Intake & Output 02/26/18 02/27/18 02/27/18 18:59 06:59 18:59 Intake Total 480 200 Output Total 400 380 Balance 80 -380 200 Weight 156.9 kg 157.2 kg Intake: Oral 480 200 Output: Urine 400 380 Other: Voiding Method Urinal Urinal # Bowel Movements 1 - Exam Appearance, comfortable likely distress Head exam was generally normal. There was no scleral icterus or corneal arcus. Mucous membranes were moist. Neck was supple and with jugular venous distension, thyromegaly, or carotid bruits. Carotids were easily palpable bilaterally. There was no adenopathy. There is positive JVDs bilaterally and there is no goiter or neck masses. Lungs sounds are diminished bilaterally lung bases along with some few bibasilar crackles. Heart sounds are irregular S1-S2 and there is no significant murmurs and there is a positive gallop rhythm. Abdominal exam revealed normal bowel sounds. The abdomen was soft, non-tender, and without masses, organomegaly, or appreciable enlargement of the abdominal aorta. Extremities revealed +1 edema in the lower extremity is bilaterally with the left lower oximetry being more swollen compared to right. No open wounds or sores at this point in time. Examination of the skin revealed no evidence of significant rashes, suspicious appearing nevi or other concerning lesions. Neurologic the patient is okay can alert and there is no focal logical deficits - Labs CBC & Chem 7: 02/27/18 06:11 02/27/18 06:11 Labs: Abnormal Lab Results - Last 24 Hours (Table) 02/27/18 02/27/18 02/27/18 Range/Units 06:11 06:11 06:11 WBC 17.8 H (3.8-10.6) k/uL Hgb 12.9 L (13.0-17.5) gm/dL MCHC 30.5 L (31.0-37.0) g/dL Neutrophils # 14.9 H (1.3-7.7) k/uL INR 1.3 H (<1.2) Chloride 109 H (98-107) mmol/L Carbon Dioxide 21 L (22-30) mmol/L BUN 48 H (9-20) mg/dL Creatinine 1.29 H (0.66-1.25) mg/dL Glucose 109 H (74-99) mg/dL Total Protein 5.9 L (6.3-8.2) g/dL Albumin 2.9 L (3.5-5.0) g/dL Microbiology - Last 24 Hours (Table) 02/22/18 11:45 Blood Culture - Preliminary Blood No Growth after 120 hours 02/24/18 21:12 Gram Stain - Final Sputum Sputum Culture - Final Assessment and Plan Plan: 1 acute decompensated heart failure. The patient is known to have chronic systolic heart failure with ejection fraction of 20-25%. The patient is improving. The patient is producing adequate amount of urine output. He is in a negative fluid balance. 2 troponin leak with questionable underlying coronary artery disease 3 paroxysmal atrial fibrillation. Rate is controlled with a combination of metoprolol and amiodarone and the patient was initiated on medical evaluation with warfarin. The PT/INR remains subtherapeutic. 4 chronic renal failure with acute kidney injury secondary diuretics until of chronic renal failure. Currently off diuretics and the patient is producing adequate amount of urine output, and acute kidney injury is improving and the patient's creatinine is down to 1.5 5 chronic lower extremity edema 6 morbid obesity 7 non-anion gap metabolic acidosis currently on oral bicarbonate 8 hyperlipidemia 9 hypertension 10 hypothyroidism 11 impaired performance and functional status secondary to above-mentioned comorbidities Plan: Continue IV diuretics, patient is following status is improving, his renal profile is improving, hemodynamic patient remains stable, he was started on Coumadin, her anticoagulation for his paroxysmal atrial fibrillation. Increase activity as tolerated, today's chest x-ray has been reviewed by Dr. Heaton, shows improvement in aeration at the bases. Does remain negative, no fever no chills. Continue to follow. I performed a history & physical examination of the patient and discussed their management with my nurse practitioner, Winter Nelson. I reviewed the nurse practitioner's note and agree with the documented findings and plan of care. Lung sounds are positive for diminished breath sounds. The findings and the impression was discussed with the patient. I attest to the documentation by the nurse practitioner. Time with Patient: Less than 30
[2018-02-27] MEDS: LEVOFLOXACIN 250 MG TAB PO SCH (15:49)
--- NOTE | 2018-02-27 15:59 | XR ---
EXAMINATION TYPE: XR chest 2V DATE OF EXAM: 02/27/2018 COMPARISON: 02/24/2018 HISTORY: 62-year-old male follow-up CHF, cough and congestion. TECHNIQUE: AP and lateral views FINDINGS: Heart [id number] enlarged. Mild elongation thoracic aorta. Diffuse interstitial and vascular pr ominence persists. Patchy bibasilar opacities. No significant pleural effusion. IMPRESSION: 1. Mild to moderate cardiomegaly with interstitial changes, possible mild CHF. Overall stable appeara nce. 2. Some patchy bibasilar areas of atelectasis or infiltrates. 3. No sizable effusion.
[2018-02-27] MEDS ORDERED: WARFARIN 5 MG TAB PO ONE (18:00)
[2018-02-27] MEDS: ATORVASTATIN 20 MG TAB PO SCH (19:52)
[2018-02-27] MEDS: BENZOCAINE/MENTHOL LOZENG 1 EACH LOZENGE MUCOUS MEM PRN ×2 (19:52→23:14)
--- NOTE | 2018-02-27 21:49 | PN ---
PROGRESS NOTE Patient is seen for followup for acute kidney injury. His renal failure appeared to be prerenal with a component of cardiorenal syndrome as well. He has significant lower extremity edema. Patient was initially diuresed; however, over the weekend he was started on IV fluids. Renal function improved significantly, with creatinine coming down from 3.29 to 1.5 yesterday and 1.29 today. The IV fluids were decreased to 50 mL/hour and yesterday they were discontinued. Patient is complaining of shortness of breath, particularly on lying flat. He has had good urine output. He denies any other significant complaints. He also states his swelling has increased. On examination today, blood pressure is 153/100, heart rate of 87 per minute. Patient is afebrile. EXAMINATION OF THE HEART: S1, S2. EXAMINATION OF LUNGS: Bilateral breath sounds are heard. ABDOMEN: Soft, non-tender. Examination of lower extremities shows 3+ edema bilaterally with chronic skin changes. [employer] exam is grossly intact. Patient is moving all 4 extremities. Labs show sodium 140, potassium 4.0, chloride 109, BUN 48, serum creatinine 1.29, hemoglobin 12.9 g/dL. ASSESSMENT: 1. Acute kidney injury, prerenal, and a component of cardiorenal syndrome as well, status post IV fluids with significant improvement in renal function. The IV fluids were discontinued yesterday. I will give a dose of Lasix today and we will continue to monitor the renal function closely. Patient has chronic lower extremity edema; however, this morning he was complaining of orthopnea. We will need to monitor his renal profile and volume status closely. 2. Severe cardiomyopathy, ejection fraction of about 25%. 3. Chronic kidney disease, stage III, secondary to nephrosclerosis; baseline creatinine about 1.45. 4. Mild metabolic acidosis, maintained on oral sodium bicarb. PLAN: Continue off of IV fluids. Start Lasix. Repeat labs in a.m. Hopefully we can decrease the dose of sodium bicarb as well, which is adding to the sodium load. MMODL / IJN: [id number] /
--- NOTE | 2018-02-27 22:09 | PN ---
PROGRESS NOTE DATE OF SERVICE: 02/27/2018 PRESENTING COMPLAINT: Tired. INTERVAL HISTORY: Patient presented with CHF exacerbation. Initially was on Lasix drip and dopamine drip and went into renal failure. Patient did get IV fluids. Lasix was held. Renal function started improving. Lasix was resumed today. Also had paroxysmal atrial fibrillation. The patient also being treated for acute bronchitis, lower extremity cellulitis, feels better today. Did tolerate some diet. REVIEW OF SYSTEMS: Done for constitutional, cardiovascular, GI, pulmonary; relevant findings as above. CURRENT MEDICATIONS: Reviewed that include Cordarone, IV Lasix started today, p.o. Levaquin, Silvadene and clindamycin. PHYSICAL EXAMINATION: VITAL SIGNS: Temperature 97.6, pulse 57, respirations 16, blood pressure 126/82, pulse ox 97% on 2 L. GENERAL APPEARANCE: Sitting up. Awake. EYES: Pupils equal. Conjunctivae normal. NECK: JVD unable to assess. Mass not palpable. RESPIRATORY: Effort increased. LUNGS: Fair air entry. CARDIOVASCULAR: Heart sounds muffled. Some edema present. ABDOMEN: Distended, soft. Liver and spleen not palpable. PSYCHIATRY: Alert and oriented times three. Mood and affect normal. EXTREMITIES: Lower extremity in an Hermes wrap. INVESTIGATIONS: White count 7.8, hemoglobin 12.9, potassium 4.4, BUN 48, creatinine 1.29. ASSESSMENT: 1. Acute on chronic congestive heart failure exacerbation from systolic dysfunction, ejection fraction 20%. Clinically appears to be more euvolemic. 2. Bilateral lower extremity venous insufficiency, more pronounced, left lower extremity with blisters. 3. Chronic venous stasis dermatitis with acute cellulitis especially in the left lower extremity. 4. Bilateral onychomycosis status post nail clipping. 5. Essential hypertension. 6. Hyperlipidemia. 7. Hypothyroid. 8. Morbid obesity, BMI 51.7. 9. Lactic acidosis type 2. 10.Chronic kidney disease stage 3 from nephrosclerosis. 11.Acute renal failure with a combination of cardiorenal and prerenal with improvement. 12.Acute bronchitis. PLAN: Patient has been put back on IV Lasix. Be very careful with the renal function. Continue with antibiotics. Care was discussed with the patient. Follow electrolytes closely. MMODL / IJN: [id number] /
[2018-02-28] MEDS: LEVOTHYROXINE 50 MCG TAB PO SCH (06:29)
[2018-02-28 06:57] LABS: Basophils # (A) 0.3 k/uL (0-0.2); Basophils % (A) 1 %; Eosinophils # (A) 0.2 k/uL (0-0.7); Eosinophils % (A) 1 %; HCT 42.4 % (39.0-53.0); HGB 13.3 gm/dL (13.0-17.5); Hypochromasia Slight; Lymphocytes # (A) 1.4 k/uL (1.0-4.8); Lymphocytes % (A) 8 %; MCH 28.4 pg (25.0-35.0); MCHC 31.3 g/dL (31.0-37.0); MCV 90.9 fL (80.0-100.0); Mean Platelet Volume 11.9; Monocytes # (A) 1.3 k/uL (0-1.0); Monocytes % (A) 7 %; Neutrophils # (A) 14.8 k/uL (1.3-7.7); Neutrophils % (A) 82 %; Platelet Count 193 k/uL (150-450); RBC 4.66 m/uL (4.30-5.90); RDW 15.5 % (11.5-15.5); WBC 18.1 k/uL (3.8-10.6)
[2018-02-28 07:04] LABS: INR 1.2 (<1.2); Prothrombin Time 12.9 sec (9.0-12.0)
[2018-02-28 07:05] LABS: Calcium 9.1 mg/dL (8.4-10.2); Magnesium 1.9 mg/dL (1.6-2.3); Potassium 4.3 mmol/L (3.5-5.1)
[2018-02-28] MEDS: AMIODARONE 200 MG TAB PO SCH ×3 (08:14→21:55)
[2018-02-28] MEDS: CHOLECALCIFEROL 1,000 UNIT TAB PO SCH (08:14)
[2018-02-28] MEDS: POTASSIUM CHLORIDE ER 20 MEQ TAB.ER PO SCH (08:14)
[2018-02-28] MEDS: ALLOPURINOL 300 MG TAB PO SCH (08:14)
[2018-02-28] MEDS: ASPIRIN 81 MG PO SCH (08:14)
[2018-02-28] MEDS: FUROSEMIDE 10 MG/ML 4 ML VIAL IV SCH ×2 (08:14→20:43)
[2018-02-28] MEDS: CLINDAMYCIN 150 MG CAP PO SCH ×3 (08:14→21:55)
[2018-02-28] MEDS: SODIUM BICARBONATE TAB 650 MG TAB PO SCH ×2 (08:15→12:00)
[2018-02-28] MEDS: METOPROLOL TARTRATE 50 MG TAB PO SCH (08:19)
[2018-02-28] MEDS: SILVER sulfADIAZINE Cream 400 GM 1 APPLIC APPLIC TOPICAL SCH ×3 (09:30→20:47)
--- NOTE | 2018-02-28 14:37 | P.PN ---
Subjective Progress Note Date: 02/28/18 This is a pleasant 62-year-old male past medical history significant for dyslipidemia, hypertension, left bundle branch block on EKG and morbid obesity. He recently established care with Dr. Goodwin in the office April of this year. At that time it is noted that he also has a history of chronic diastolic heart failure, Dr. Goodwin recommended undergoing echocardiogram, Holter monitor and Lexiscan. The patient never followed up for this test. We have been asked to see him in consultation secondary to elevated troponins.The patient states that around about Thanksgiving time he started noticing significant edema in his left lower extremity. This seemed to be getting progressively worse over time. He takes oral Lasix at home but was showing no improvement in the edema. Venous Doppler was obtained and is negative for DVT. He also complains of cough that has been progressive over the previous 3 weeks with shortness of breath and sometimes exertional dyspnea. Chest x-ray revealed evidence of perihilar infiltrate with developing pulmonary edema versus pneumonic infiltrate. He had been started on IV antibiotics as well has a Lasix infusion. Patient also had evidence of cellulitis, elevated lactic acidosis picture suggestive of sepsis. His echocardiogram with Doppler study revealed severely impaired left ventricular systolic function however the IVC was not dilated and was collapsing so the right atrial pressure was not significantly elevated. Therefore the Lasix drip was discontinued yesterday and patient was actually given IV fluids. His chest x-ray was repeated did not show any evidence of congestive heart failure. Patient also had gone into atrial fibrillation with rapid ventricular response, and was initiated on IV amiodarone. The IV amiodarone today has been discontinued and patient has been started on oral amiodarone. The patient continues to be in atrial fibrillation today. Overall he does state that he is feeling somewhat better, continues to have productive cough of yellow and green sputum. Blood pressure 120/78 with a heart rate in the 90s, 97% on 2 L of oxygen. White blood cell count 20.8, hemoglobin 13, platelet count 131. Sodium 138, potassium 4.3, BUN 73 and creatinine 2.5 today. We will continue current rate of IV fluids today. We will also give the patient 5 mg of Coumadin today. 02/26/2018 Patient was seen and examined this morning, overall doing well. Hemodynamically stable. Continues to have bilateral edema however urine output is excellent, creatinine improving, 1.5 today. No fever or chills. INR today 1.1, we will give 5 mg of Coumadin today. 02/27/2018 Patient was seen and examined this morning, overall is doing better. Continues to have peripheral edema, sodium 140, potassium 4.4, BUN 48, creatinine 1.2. INR today is 1.3. Patient was initiated today on IV diuretics, by nephrology, follow the renal function closely. 5 mg of Coumadin today. 02/28/2018 Patient seen and examined today, breathing overall is improved. Repeat chest x- ray showed mild to moderate cardiomegaly with interstitial changes, mild CHF. Patient did diurese well through the night however documentation does not support this. Lungs sound much improved today overall. Sodium 142, potassium 4.3, BUN 41, creatinine 1.2. Objective - Vital Signs Vital signs: Vital Signs Temp 98.2 F 02/28/18 12:00 Pulse 66 02/28/18 12:00 Resp 18 02/28/18 12:00 BP 106/82 02/28/18 12:00 Pulse Ox 98 02/28/18 12:00 Intake & Output 02/27/18 02/28/18 02/28/18 18:59 06:59 18:59 Intake Total 560 Output Total 750 Balance 560 -750 Weight 161.2 kg Intake: Oral 560 Output: Urine 750 Other: Voiding Method Urinal # Voids 1 - Exam PHYSICAL EXAMINATION: GENERAL: 62-year-old gentleman in no acute distress at the time of my examination HEENT: Head is atraumatic, normocephalic. Pupils equal, round. Sclera anicteric. Conjunctiva are clear. Mucous membranes of the mouth are moist. Neck is supple. There is no elevated jugular venous pressure. No carotid bruit is heard. HEART EXAMINATION: Heart S1, S2 normal. No murmur or gallop heard. CHEST EXAMINATION: Lungs are clear with fine wheezing heard. ABDOMEN: Soft, obese, nontender. Bowel sounds are heard. No organomegaly noted. EXTREMITIES: 2+ peripheral pulses with 2+ evidence of cellulitis and venous insufficiency . NEUROLOGIC patient is awake, alert and oriented X3. . - Labs CBC & Chem 7: 02/28/18 06:13 02/28/18 06:13 Labs: Abnormal Lab Results - Last 24 Hours (Table) 02/28/18 02/28/18 02/28/18 Range/Units 06:13 06:13 06:13 WBC 18.1 H (3.8-10.6) k/uL Neutrophils # 14.8 H (1.3-7.7) k/uL Monocytes # 1.3 H (0-1.0) k/uL Basophils # 0.3 H (0-0.2) k/uL PT 12.9 H (9.0-12.0) sec INR 1.2 H (<1.2) BUN 41 H (9-20) mg/dL Glucose 104 H (74-99) mg/dL Microbiology - Last 24 Hours (Table) 02/22/18 11:45 Blood Culture - Final Blood No Growth after 144 hours 02/24/18 21:12 Gram Stain - Final Sputum Sputum Culture - Final Assessment and Plan Plan: Assessment and plan #1 cellulitis and sepsis #2 hyperkalemia and worsening renal failure #3 acute on chronic kidney injury #4 obesity #5 mildly abnormal troponin, not consistent with acute coronary syndrome #6 paroxysmal atrial fibrillation Plan We'll give the patient 5 mg of Coumadin today, continue to check daily PT/INRs. Continue to monitor intake and output along with daily weights and daily lytes BUN and creatinine. DNP note has been reviewed, I agree with a documented findings and plan of care. Patient was seen and examined.
--- NOTE | 2018-02-28 14:41 | P.PN ---
Subjective Patient is seen in follow-up for acute kidney injury on chronic kidney disease. Renal function is stable with creatinine at 1.25 today. Overall the patient feels better today. Admits to good urine output. Dyspnea is better. No vomiting or diarrhea. He is making a Lasix 40 mg IV twice daily. He has history of systolic CHF with ejection fraction of 20-25%. Vital signs are stable. General: The patient appeared well nourished and normally developed. HEENT: Head exam is unremarkable. Neck is without jugular venous distension. LUNGS: Lungs are clear to auscultation and percussion. Breath sounds decreased. HEART: Rate and Rhythm are regular. First and second heart sounds normal. No murmurs, rubs or gallops. ABDOMEN: Abdominal exam reveals normal bowel sounds. Non-tender and non- distended. No evidence of peritonitis. EXTREMITITES: 1+ edema. Objective - Vital Signs Vital signs: Vital Signs Temp 98.2 F 02/28/18 12:00 Pulse 66 02/28/18 12:00 Resp 18 02/28/18 12:00 BP 106/82 02/28/18 12:00 Pulse Ox 98 02/28/18 12:00 Intake & Output 02/27/18 02/28/18 02/28/18 18:59 06:59 18:59 Intake Total 560 Output Total 750 Balance 560 -750 Weight 161.2 kg Intake: Oral 560 Output: Urine 750 Other: Voiding Method Urinal # Voids 1 - Labs CBC & Chem 7: 02/28/18 06:13 02/28/18 06:13 Labs: Abnormal Lab Results - Last 24 Hours (Table) 02/28/18 02/28/18 02/28/18 Range/Units 06:13 06:13 06:13 WBC 18.1 H (3.8-10.6) k/uL Neutrophils # 14.8 H (1.3-7.7) k/uL Monocytes # 1.3 H (0-1.0) k/uL Basophils # 0.3 H (0-0.2) k/uL PT 12.9 H (9.0-12.0) sec INR 1.2 H (<1.2) BUN 41 H (9-20) mg/dL Glucose 104 H (74-99) mg/dL Microbiology - Last 24 Hours (Table) 02/22/18 11:45 Blood Culture - Final Blood No Growth after 144 hours 02/24/18 21:12 Gram Stain - Final Sputum Sputum Culture - Final Assessment and Plan Plan: Assessment: 1. Nonoliguric acute kidney injury mostly prerenal secondary to cardiorenal syndrome. Creatinine down to 1.25 today. 2. Chronic kidney disease stage III secondary to nephrosclerosis with baseline creatinine near 1.4. 3. Systolic CHF with ejection fraction of 20-25%. 4. Metabolic acidosis maintained on oral bicarbonate. Bicarb level of 28. 5. Volume overload. Plan: Maintain Lasix 40 mg IV twice daily. Can likely transition to oral diuretics tomorrow. Discontinue bicarb. Avoid nephrotoxins. Maintain low salt diet.
[2018-02-28] MEDS: LEVOFLOXACIN 250 MG TAB PO SCH (15:28)
--- NOTE | 2018-02-28 16:15 | P.PN ---
Subjective Progress Note Date: 02/28/18 Principal diagnosis: Acute decompensated heart failure, with systolic dysfunction, patient has a chronic systolic heart failure with ejection fraction 20-25%, elevated troponins , paroxysmal A. fib 62-year-old male patient was seen in consultation yesterday because of increased swelling in lower extremity and increased shortness of breath. The patient has congestion heart failure. The patient is an ejection fraction at severely impaired with an EF around 20-25%. Right ventricular is mildly enlarged. Left atrium is severely dilated. No significant pulmonary hypertension measured on the echocardiogram. The patient was placed initially on IV Lasix and the patient was on Lasix drip. Creatinine came up to 3.2. Based on that the diuretics was discontinued and the patient's creatinine is down to 2.5 on today's blood work. Note that he may have an underlying chronic renal insufficiency. His baseline creatinine, admission was at 2.1. His net fluid balance has been negative. The patient has been diuresing well and a negative fluid balance of 1.3 L 40 yesterday and mother 1 L for today. White cell count is stable at 20.8. This of the electrodes are all within normal limits. The patient is on empiric antibiotic coverage with oral Levaquin. The patient is also being antigravity with warfarin and the patient was started on Coumadin 5 mg by mouth daily for chronic atrial fibrillation the PT/INR is subtherapeutic at this point. The patient is on metoprolol for rate control and CHF. Currently on 100 mg of metoprolol a daily basis. The patient is also on Lipitor 20 mg by mouth daily, aspirin and amiodarone 200 mg by mouth 3 times a day. On 02/27/2008 and I'm seeing this patient for a follow-up. No new complaints for today. Hemodynamically stable. Producing adequate amount of urine output. Legs are still swollen although he is producing good amount of urine output in the edema according to him is improving. His creatinine is down to 1.53 and is recovering from his acute renal failure. His white cell count is down to 17. No fever. No chills. Is currently off states of oxygen nasal cannula with a pulse ox of 95%. His overall performance and functional status is extremely poor. He denies having any shortness of breath at rest. He is tolerating his diet. He was started on medical condition with warfarin and the PT/INR remains subtherapeutic while being on 5 mg of Coumadin. His INR from today is at 1.1. On 02/2018 patient seen in follow-up care unit, remains on 3 days per nasal cannula, his pulse ox 95%, his respirations are even and nonlabored. Repeat chest x-ray was done, today's chest x-ray shows improvement in aeration of the bases. His fluid volume status is improving, lower extremity edema is improving , patient is diuresing, -200 ML Over last 24 hours. His labs have been reviewed , WBC 17.8, hemoglobin is 12.9, sodium is 140, potassium is 4.4, chloride is 109 , CO2 is 21, renal profile is improving, BUN is 48 and creatinine is 1.29. Nasonex IV Lasix of 40 mg every 12 hours, nephrology is following. Wound care to lower extremity cellulitis, he is on oral sodium bicarbonate, and was started on Coumadin anticoagulation. On 02/28/2018 patient seen in follow-up on selective care unit, he continues to diurese, he is in negative fluid balance, appearance of bilateral lower extremity edema is improving, but patient still has residual lower extremity swelling. No fever no chills. No worsening dyspnea, no chest pain, pulse ox on 2 L per nasal cannula is 98%, hemodynamically stable, patient is receiving local wound care to lower extremity edema. And antibiotic coverage includes clindamycin, Levaquin. Patient was started on Coumadin for anticoagulation for his paroxysmal atrial fibrillation. Objective - Vital Signs Vital signs: Vital Signs Temp 98.2 F 02/28/18 12:00 Pulse 66 02/28/18 12:00 Resp 18 02/28/18 12:00 BP 106/82 02/28/18 12:00 Pulse Ox 98 02/28/18 12:00 Intake & Output 02/27/18 02/28/18 02/28/18 18:59 06:59 18:59 Intake Total 560 Output Total 750 Balance 560 -750 Weight 161.2 kg Intake: Oral 560 Output: Urine 750 Other: Voiding Method Urinal # Voids 1 - Exam Appearance, comfortable without signs of distress Head exam was generally normal. There was no scleral icterus or corneal arcus. Mucous membranes were moist. Neck was supple and with jugular venous distension, thyromegaly, or carotid bruits. Carotids were easily palpable bilaterally. There was no adenopathy. There is positive JVDs bilaterally and there is no goiter or neck masses. Lungs sounds are diminished bilaterally lung bases along with some few bibasilar crackles. Heart sounds are irregular S1-S2 and there is no significant murmurs and there is a positive gallop rhythm. Abdominal exam revealed normal bowel sounds. The abdomen was soft, non-tender, and without masses, organomegaly, or appreciable enlargement of the abdominal aorta. Extremities revealed +1 edema in the lower extremity is bilaterally with the left lower oximetry being more swollen compared to right. No open wounds or sores at this point in time. Examination of the skin revealed no evidence of significant rashes, suspicious appearing nevi or other concerning lesions. Neurologic the patient is okay can alert and there is no focal logical deficits - Labs CBC & Chem 7: 02/28/18 06:13 02/28/18 06:13 Labs: Abnormal Lab Results - Last 24 Hours (Table) 02/28/18 02/28/18 02/28/18 Range/Units 06:13 06:13 06:13 WBC 18.1 H (3.8-10.6) k/uL Neutrophils # 14.8 H (1.3-7.7) k/uL Monocytes # 1.3 H (0-1.0) k/uL Basophils # 0.3 H (0-0.2) k/uL PT 12.9 H (9.0-12.0) sec INR 1.2 H (<1.2) BUN 41 H (9-20) mg/dL Glucose 104 H (74-99) mg/dL Microbiology - Last 24 Hours (Table) 02/22/18 11:45 Blood Culture - Final Blood No Growth after 144 hours 02/24/18 21:12 Gram Stain - Final Sputum Sputum Culture - Final Assessment and Plan Plan: 1 acute decompensated heart failure. The patient is known to have chronic systolic heart failure with ejection fraction of 20-25%. The patient is improving. The patient is producing adequate amount of urine output. He is in a negative fluid balance. 2 troponin leak with questionable underlying coronary artery disease 3 paroxysmal atrial fibrillation. Rate is controlled with a combination of metoprolol and amiodarone and the patient was initiated on medical evaluation with warfarin. The PT/INR remains subtherapeutic. 4 chronic renal failure with acute kidney injury secondary diuretics until of chronic renal failure. Currently off diuretics and the patient is producing adequate amount of urine output, and acute kidney injury is improving and the patient's creatinine is down to 1.5 5 chronic lower extremity edema 6 morbid obesity 7 non-anion gap metabolic acidosis currently on oral bicarbonate 8 hyperlipidemia 9 hypertension 10 hypothyroidism 11 impaired performance and functional status secondary to above-mentioned comorbidities Plan: Patient denies any worsening dyspnea, he is maintained good oxygenation on 2 L per nasal cannula, [place] any chest pain, the appearance of bilateral extremity edema is improving, patient continues on IV diuretics, he is in negative fluid balance. History of chest x-ray showed mild to moderate cardiomegaly with interstitial changes, possible CHF, and some patchy bibasilar areas of atelectasis. No shortness of breath, no chest congestion, no wheezing. Patient noted on Coumadin for anticoagulation. We'll continue on as-needed basis. I performed a history & physical examination of the patient and discussed their management with my nurse practitioner, Winter Nelson. I reviewed the nurse practitioner's note and agree with the documented findings and plan of care. Lung sounds are positive for diminished breath sounds. The findings and the impression was discussed with the patient. I attest to the documentation by the nurse practitioner. Time with Patient: Less than 30
[2018-02-28] MEDS ORDERED: WARFARIN 5 MG TAB PO ONE (18:00)
[2018-02-28] MEDS: ATORVASTATIN 20 MG TAB PO SCH (20:43)
--- NOTE | 2018-02-28 21:53 | PN ---
PROGRESS NOTE DATE OF SERVICE: 02/28/2018 PRESENTING COMPLAINT: Tired. INTERVAL HISTORY: Patient presented with CHF exacerbation. Initially was on IV Lasix drip, dopamine drip, then went into renal failure. Did get some IV fluids, now resumed back on IV Lasix. Feeling better. Does feel weak and tired. Also had atrial fibrillation. Also being treated for acute bronchitis, lower extremity cellulitis and venous insufficiency. REVIEW OF SYSTEMS: Done for constitutional, cardiovascular, GI, pulmonary; relevant findings above. CURRENT MEDICATIONS: Reviewed. They include: 1. Amiodarone. 2. Clindamycin. 3. Levaquin. 4. IV Lasix. PHYSICAL EXAMINATION: Temperature 97.8, pulse 85, respiration 18, blood pressure 106/82, pulse ox 94% on room air. GENERAL APPEARANCE: Lying in bed, tired. Awake. EYES: Pupils equal. Conjunctivae normal. NECK: JVD unable to assess. Mass not palpable. RESPIRATORY: Effort increased. LUNGS: Distant breath sounds. CARDIOVASCULAR: Heart sounds muffled. Edema present. ABDOMEN: Distended, soft. Liver and spleen not palpable. PSYCHIATRY: Alert and oriented x3. Mood and affect normal. EXTREMITIES: Hermes wraps in place. INVESTIGATIONS: White count 18.1, potassium 4.3, BUN 41, creatinine 1.25. ASSESSMENT: 1. Acute on chronic congestive heart failure exacerbation from systolic dysfunction, ejection fraction 20%. Clinically appears to be doing much better. 2. Bilateral lower extremity venous insufficiency, more pronounced in the left lower extremity with blisters. 3. Chronic venostasis dermatitis with acute cellulitis, especially on the left lower extremity. 4. Bilateral onychomycosis, status post nail clipping. 5. Essential hypertension. 6. Hyperlipidemia. 7. Hypothyroid. 8. Morbid obesity with body mass index of 51.7. 9. Lactic acidosis, type 2. 10.Chronic kidney disease, stage III, from nephrosclerosis. 11.Acute renal failure, combination of cardiorenal and prerenal, with improvement. 12.Acute bronchitis. 13.Coumadin monitoring. PLAN: Patient remains on IV Lasix. Creatinine is coming down. I did touch base with the patient about looking into bariatric surgery. He thinks his insurance will be Hoping to be switched over to Lasix p.o. tomorrow. MMODL / IJN: [id number] /
[2018-03-01] MEDS: LEVOTHYROXINE 50 MCG TAB PO SCH (06:45)
[2018-03-01 06:58] LABS: Calcium 8.9 mg/dL (8.4-10.2); Magnesium 1.8 mg/dL (1.6-2.3); Potassium 4.5 mmol/L (3.5-5.1)
[2018-03-01 06:59] LABS: HCT 41.9 % (39.0-53.0); HGB 13.4 gm/dL (13.0-17.5); Hypochromasia Slight; MCHC 32.1 g/dL (31.0-37.0); MCV 90.4 fL (80.0-100.0); Mean Platelet Volume 11.6; Platelet Count 197 k/uL (150-450); RBC 4.63 m/uL (4.30-5.90); RDW 15.3 % (11.5-15.5); WBC 16.3 k/uL (3.8-10.6)
[2018-03-01 07:01] LABS: INR 1.4 (<1.2); Prothrombin Time 14.6 sec (9.0-12.0)
[2018-03-01 07:26] LABS: Basophils # (M) 0.16 k/uL (0-0.2); Eosinophils # (M) 0.16 k/uL (0-0.7); Lymphocytes # (M) 3.26 k/uL (1.0-4.8); Monocytes # (M) 0.65 k/uL (0-1.0); Myelocytes # (M) 0.98 k/uL (0); Myelocytes % 6 %; Neutrophils # (M) 11.25 k/uL (1.3-7.7); Neutrophils % (M) 69 %; Nucleated Red Blood Cells 0 /100 WBC (0-0); Total Cells Counted 200
[2018-03-01 07:29] LABS: Large Platelets Present
[2018-03-01] MEDS: ASPIRIN 81 MG PO SCH (08:41)
[2018-03-01] MEDS: AMIODARONE 200 MG TAB PO SCH ×3 (08:41→21:47)
[2018-03-01] MEDS: CHOLECALCIFEROL 1,000 UNIT TAB PO SCH (08:41)
[2018-03-01] MEDS: CLINDAMYCIN 150 MG CAP PO SCH ×3 (08:41→21:47)
[2018-03-01] MEDS: ALLOPURINOL 300 MG TAB PO SCH (08:41)
[2018-03-01] MEDS: POTASSIUM CHLORIDE ER 20 MEQ TAB.ER PO SCH (08:41)
[2018-03-01] MEDS: METOPROLOL TARTRATE 50 MG TAB PO SCH (08:41)
[2018-03-01] MEDS: FUROSEMIDE 10 MG/ML 4 ML VIAL IV SCH ×2 (08:42→21:01)
[2018-03-01] MEDS: SILVER sulfADIAZINE Cream 400 GM 1 APPLIC APPLIC TOPICAL SCH ×2 (08:42→21:21)
--- NOTE | 2018-03-01 14:52 | P.PN ---
Subjective Progress Note Date: 03/01/18 This is a pleasant 62-year-old male past medical history significant for dyslipidemia, hypertension, left bundle branch block on EKG and morbid obesity. He recently established care with Dr. Goodwin in the office April of this year. At that time it is noted that he also has a history of chronic diastolic heart failure, Dr. Goodwin recommended undergoing echocardiogram, Holter monitor and Lexiscan. The patient never followed up for this test. We have been asked to see him in consultation secondary to elevated troponins.The patient states that around about Thanksgiving time he started noticing significant edema in his left lower extremity. This seemed to be getting progressively worse over time. He takes oral Lasix at home but was showing no improvement in the edema. Venous Doppler was obtained and is negative for DVT. He also complains of cough that has been progressive over the previous 3 weeks with shortness of breath and sometimes exertional dyspnea. Chest x-ray revealed evidence of perihilar infiltrate with developing pulmonary edema versus pneumonic infiltrate. He had been started on IV antibiotics as well has a Lasix infusion. Patient also had evidence of cellulitis, elevated lactic acidosis picture suggestive of sepsis. His echocardiogram with Doppler study revealed severely impaired left ventricular systolic function however the IVC was not dilated and was collapsing so the right atrial pressure was not significantly elevated. Therefore the Lasix drip was discontinued yesterday and patient was actually given IV fluids. His chest x-ray was repeated did not show any evidence of congestive heart failure. Patient also had gone into atrial fibrillation with rapid ventricular response, and was initiated on IV amiodarone. The IV amiodarone today has been discontinued and patient has been started on oral amiodarone. The patient continues to be in atrial fibrillation today. Overall he does state that he is feeling somewhat better, continues to have productive cough of yellow and green sputum. Blood pressure 120/78 with a heart rate in the 90s, 97% on 2 L of oxygen. White blood cell count 20.8, hemoglobin 13, platelet count 131. Sodium 138, potassium 4.3, BUN 73 and creatinine 2.5 today. We will continue current rate of IV fluids today. We will also give the patient 5 mg of Coumadin today. 02/26/2018 Patient was seen and examined this morning, overall doing well. Hemodynamically stable. Continues to have bilateral edema however urine output is excellent, creatinine improving, 1.5 today. No fever or chills. INR today 1.1, we will give 5 mg of Coumadin today. 02/27/2018 Patient was seen and examined this morning, overall is doing better. Continues to have peripheral edema, sodium 140, potassium 4.4, BUN 48, creatinine 1.2. INR today is 1.3. Patient was initiated today on IV diuretics, by nephrology, follow the renal function closely. 5 mg of Coumadin today. 02/28/2018 Patient seen and examined today, breathing overall is improved. Repeat chest x- ray showed mild to moderate cardiomegaly with interstitial changes, mild CHF. Patient did diurese well through the night however documentation does not support this. Lungs sound much improved today overall. Sodium 142, potassium 4.3, BUN 41, creatinine 1.2. 03/01/2018 Patient was seen and examined this morning, overall doing better, edema improving, lungs sound much more clear today. Blood pressure 126/80 with a heart rate in the 90s, weight is down 2 kg today. Blood cell count 16.3, hemoglobin 13.4, platelet count 197. Pro time 14.6 with an INR of 1.4. Sodium 141, potassium 4.5, BUN 32, creatinine 1.1, magnesium 1.8. Objective - Vital Signs Vital signs: Vital Signs Temp 98.1 F 03/01/18 11:31 Pulse 94 03/01/18 11:31 Resp 18 03/01/18 11:31 BP 126/84 03/01/18 11:31 Pulse Ox 97 03/01/18 11:31 Intake & Output 02/28/18 03/01/18 03/01/18 18:59 06:59 18:59 Intake Total 600 462 Output Total 400 1050 Balance 200 -1050 462 Weight 159.8 kg Intake: Oral 600 462 Output: Urine 400 1050 Other: Voiding Method Urinal # Voids 1 - Exam PHYSICAL EXAMINATION: GENERAL: 62-year-old gentleman in no acute distress at the time of my examination HEENT: Head is atraumatic, normocephalic. Pupils equal, round. Sclera anicteric. Conjunctiva are clear. Mucous membranes of the mouth are moist. Neck is supple. There is no elevated jugular venous pressure. No carotid bruit is heard. HEART EXAMINATION: Heart S1, S2 normal. No murmur or gallop heard. CHEST EXAMINATION: Lungs are clear with fine wheezing heard. ABDOMEN: Soft, obese, nontender. Bowel sounds are heard. No organomegaly noted. EXTREMITIES: 2+ peripheral pulses with 1+ evidence of cellulitis and venous insufficiency . NEUROLOGIC patient is awake, alert and oriented X3. . - Labs CBC & Chem 7: 03/01/18 06:12 03/01/18 06:12 Labs: Abnormal Lab Results - Last 24 Hours (Table) 03/01/18 03/01/18 03/01/18 Range/Units 06:12 06:12 06:12 WBC 16.3 H (3.8-10.6) k/uL Neutrophils # (Manual) 11.25 H (1.3-7.7) k/uL Myelocytes # (Manual) 0.98 H (0) k/uL PT 14.6 H (9.0-12.0) sec INR 1.4 H (<1.2) BUN 32 H (9-20) mg/dL Microbiology - Last 24 Hours (Table) 02/22/18 11:45 Blood Culture - Final Blood No Growth after 144 hours Assessment and Plan Plan: Assessment and plan #1 cellulitis and sepsis #2 hyperkalemia and worsening renal failure #3 acute on chronic kidney injury #4 obesity #5 mildly abnormal troponin, not consistent with acute coronary syndrome #6 paroxysmal atrial fibrillation Plan We'll give the patient 5 mg of Coumadin today, continue to check daily PT/INRs. Continue to monitor intake and output along with daily weights and daily lytes BUN and creatinine. DNP note has been reviewed, I agree with a documented findings and plan of care. Patient was seen and examined.
--- NOTE | 2018-03-01 17:03 | PN ---
PROGRESS NOTE Patient is seen for followup for acute kidney injury mainly cardiorenal and some degree of intravascular volume depletion. Currently, patient is volume overloaded and he is maintained on IV Lasix. His serum creatinine has improved with creatinine down to 1.1 mg/dL today. Patient is maintained on 40 mg IV q.12 hours. He has had good urine output. He states overall is feeling better. His weight is also down to 159.8 from 161 yesterday. EXAMINATION: This morning, blood pressure was 126/82, heart rate of 90 per minute. Patient is afebrile. Examination of the heart S1, S2. Examination of the lungs bilateral breath sounds are heard. Abdomen is soft, nontender. Examination of lower extremities shows chronic edema bilaterally about 3+ with chronic skin changes. [employer] exam is grossly intact. LABS: Sodium of 141, potassium 4.5, chloride 107, BUN 32, serum creatinine 1.13, hemoglobin 13.4 g/dL. ASSESSMENT: 1. Acute kidney injury associated with cardiorenal syndrome currently slowly improving. The patient received IV fluids initially with significant improvement in renal function. Currently, he is volume overloaded. I will continue with the IV Lasix for now. He has lost weight and renal function continues to improve. 2. Severe cardiomyopathy, ejection fraction of about 25%. 3. Generalized debility. 4. Congestive heart failure, acute on top of chronic, mainly systolic. 5. Chronic kidney disease stage 3 secondary to nephrosclerosis with baseline creatinine about 1.4. PLAN: Continue with IV Lasix for now. MMODL / IJN: [id number] /
[2018-03-01] MEDS: LEVOFLOXACIN 250 MG TAB PO SCH (17:21)
[2018-03-01] MEDS ORDERED: WARFARIN 5 MG TAB PO ONE (18:00)
[2018-03-01] MEDS: ATORVASTATIN 20 MG TAB PO SCH (21:01)
--- NOTE | 2018-03-02 01:20 | PN ---
PROGRESS NOTE DATE OF SERVICE: February,. PRESENTING COMPLAINT: INTERVAL HISTORY: Patient presented with CHF exacerbation. Initial was on IV Lasix drip, dopamine drip, went into renal failure, then got IV fluids and now back on IV Lasix. Continues to feel better. The patient is also treated for atrial fibrillation. Lower extremity venous insufficiency lower extremity blisters and cellulitis. REVIEW OF SYSTEMS: Done for constitutional, cardiovascular, GI, pulmonary, dermatologic; relevant findings as above. CURRENT MEDICATIONS: Reviewed that include IV Lasix, Levaquin and clindamycin. PHYSICAL EXAMINATION: VITAL SIGNS: Temperature 98.1, pulse 94, respiration 16, blood pressure 126/84, pulse ox 99% on room air. GENERAL APPEARANCE: Sitting at the edge of bed, awake. EYES: Pupils equal. Conjunctivae normal. NECK: JVD unable to assess. Mass not palpable. RESPIRATORY: Effort increased. LUNGS: Distant breath sounds. CARDIOVASCULAR: Heart sounds muffled. Edema present. Abdomen distended, soft. Liver and spleen not palpable. PSYCHIATRY: Alert and oriented x3. Mood and affect normal. Lower extremity Hermes wraps in place. INVESTIGATIONS: White count 6.3, hemoglobin 13.4, INR 1.4, BUN 32, creatinine 1.13. ASSESSMENT: 1. Acute on chronic congestive heart failure exacerbation from systolic dysfunction ejection fraction 20%, responding well to IV Lasix. 2. Bilateral lower extremity venous insufficiency, more pronounced left lower extremity with blisters. 3. Chronic venous status venostasis dermatitis with acute cellulitis, especially on the left lower extremity. 4. Bilateral onychomycosis status post nasal clip placed by Dr. Murrieta. 5. Essential hypertension. 6. Hyperlipidemia. 7. Hypothyroid. 8. Morbid obesity BMI of 51.7. 9. Lactic acidosis type 2. 10.Chronic kidney disease stage 3 from nephrosclerosis. 11.Acute renal failure, combination of cardiorenal and prerenal with improvement. 12.Acute bronchitis. 13. overall patient looking better. PLAN: Overall patient is looking better. Continue with IV diuresis. Renal function continues to improve. Follow up with Nephrology, Cardiology, Pulmonary. MMODL / IJN: [id number] /
[2018-03-02] MEDS: LEVOTHYROXINE 50 MCG TAB PO SCH (06:31)
[2018-03-02 07:30] LABS: INR 1.8 (<1.2); Prothrombin Time 17.7 sec (9.0-12.0)
[2018-03-02 07:40] LABS: Potassium 4.2 mmol/L (3.5-5.1)
[2018-03-02 07:55] LABS: HCT 42.7 % (39.0-53.0); HGB 13.1 gm/dL (13.0-17.5); MCH 27.9 pg (25.0-35.0); MCHC 30.7 g/dL (31.0-37.0); MCV 90.9 fL (80.0-100.0); Mean Platelet Volume 12.5; Platelet Count 212 k/uL (150-450); RBC 4.69 m/uL (4.30-5.90); RDW 15.5 % (11.5-15.5); WBC 14.8 k/uL (3.8-10.6)
[2018-03-02 08:38] LABS: Band Neutrophils % 3 %; Eosinophils # (M) 0.59 k/uL (0-0.7); Lymphocytes # (M) 1.04 k/uL (1.0-4.8); Metamyelocytes # (M) 0.59 k/uL (0); Metamyelocytes % 4 %; Monocytes # (M) 0.59 k/uL (0-1.0); Myelocytes # (M) 0.59 k/uL (0); Myelocytes % 4 %; Neutrophils % (M) 76 %; Nucleated Red Blood Cells 0 /100 WBC (0-0); Total Cells Counted 200
[2018-03-02 08:41] LABS: Large Platelets Present
[2018-03-02] MEDS: POTASSIUM CHLORIDE ER 20 MEQ TAB.ER PO SCH (08:55)
[2018-03-02] MEDS: ALLOPURINOL 300 MG TAB PO SCH (08:55)
[2018-03-02] MEDS: AMIODARONE 200 MG TAB PO SCH (08:55)
[2018-03-02] MEDS: CHOLECALCIFEROL 1,000 UNIT TAB PO SCH (08:55)
[2018-03-02] MEDS: ASPIRIN 81 MG PO SCH (08:55)
[2018-03-02] MEDS: METOPROLOL TARTRATE 50 MG TAB PO SCH (08:56)
[2018-03-02] MEDS: FUROSEMIDE 10 MG/ML 4 ML VIAL IV SCH ×2 (08:56→20:15)
[2018-03-02] MEDS: CLINDAMYCIN 150 MG CAP PO SCH ×3 (09:00→22:06)
[2018-03-02] MEDS: SILVER sulfADIAZINE Cream 400 GM 1 APPLIC APPLIC TOPICAL SCH ×2 (09:02→19:31)
--- NOTE | 2018-03-02 10:26 | P.PN ---
Subjective Patient is seen in follow-up for acute kidney injury on chronic kidney disease. Renal function is stable with creatinine at 1.28 today. Overall the patient feels better today. Admits to good urine output. Dyspnea is better. No vomiting or diarrhea. He is maintained on Lasix 40 mg IV twice daily. He has history of systolic CHF with ejection fraction of 20-25%. Admits to worsening swelling of his left upper extremity. Vital signs are stable. General: The patient appeared well nourished and normally developed. HEENT: Head exam is unremarkable. Neck is without jugular venous distension. LUNGS: Lungs are clear to auscultation and percussion. Breath sounds decreased. HEART: Rate and Rhythm are regular. First and second heart sounds normal. No murmurs, rubs or gallops. ABDOMEN: Abdominal exam reveals normal bowel sounds. Non-tender and non- distended. No evidence of peritonitis. EXTREMITITES: 1+ edema in lower extremities. Left upper extremity more swollen than right. Objective - Vital Signs Vital signs: Vital Signs Temp 98.2 F 03/02/18 04:00 Pulse 66 03/02/18 08:00 Resp 20 03/02/18 08:00 BP 121/97 03/02/18 08:00 Pulse Ox 97 03/02/18 08:01 Intake & Output 03/01/18 03/02/18 03/02/18 18:59 06:59 18:59 Intake Total 684 600 360 Output Total 1550 200 Balance 684 -950 160 Weight 159.9 kg Intake: Oral 684 600 360 Output: Urine 1550 200 Other: Voiding Method Urinal # Voids 1 1 - Labs CBC & Chem 7: 03/02/18 06:47 03/02/18 06:47 Labs: Abnormal Lab Results - Last 24 Hours (Table) 03/02/18 03/02/18 03/02/18 Range/Units 06:47 06:47 06:47 WBC 14.8 H (3.8-10.6) k/uL MCHC 30.7 L (31.0-37.0) g/dL Neutrophils # (Manual) 11.60 H (1.3-7.7) k/uL Metamyelocytes # (Man) 0.59 H (0) k/uL Myelocytes # (Manual) 0.59 H (0) k/uL PT 17.7 H (9.0-12.0) sec INR 1.8 H (<1.2) Carbon Dioxide 31 H (22-30) mmol/L BUN 27 H (9-20) mg/dL Creatinine 1.28 H (0.66-1.25) mg/dL Assessment and Plan Plan: Assessment: 1. Nonoliguric acute kidney injury mostly prerenal secondary to cardiorenal syndrome. Renal function stable. 2. Chronic kidney disease stage III secondary to nephrosclerosis with baseline creatinine near 1.4. 3. Systolic CHF with ejection fraction of 20-25%. 4. Metabolic acidosis maintained on oral bicarbonate. Bicarb level of 28. 5. Volume overload. Improving. 6. Left upper extremity swelling. Rule out DVT. Plan: Maintain Lasix 40 mg IV twice daily. Discontinued bicarb. Avoid nephrotoxins. Maintain low salt diet. Check left upper extremity ultrasound.
--- NOTE | 2018-03-02 13:23 | US ---
EXAMINATION TYPE: US venous doppler duplex UE LT DATE OF EXAM: 03/02/2018 COMPARISON: NONE CLINICAL HISTORY: swelling. . left hand swelling, no h/o dvt SIDE PERFORMED: Left Left Arm: Appears negative for DVT IMPRESSION: THIS EXAMINATION IS NEGATIVE FOR DVT IN THE LEFT ARM.
--- NOTE | 2018-03-02 15:20 | P.PN ---
Subjective Progress Note Date: 03/02/18 Principal diagnosis: CHF exacerbation and left lower extremity cellulitis Mr. López is a 62-year-old male with a past medical history of congestive heart failure, L chronic lower extremity venous insufficiency admitted to the hospital with a chief complaint of increased bilateral lower extremity swelling and difficulty in breathing. He is currently being treated for CHF exacerbation. Initially the patient was on IV Lasix drip and dopamine drip and eventually went into renal failure for which she was given IV fluids. Now the patient's renal status is slowly improving and he is back on IV Lasix. Patient is sitting up by a chair beside his bed today. No acute distress. No overnight active issues reported by nursing staff. On review of systems Constitutional-denies having fevers chills or rigors Cardiovascular-no chest pain or palpitations Respiratory-difficulty in breathing improved but no cough GI -no abdominal pain nausea vomiting or diarrhea -no dysuria or hematuria Active Medications Albuterol/Ipratropium (Duoneb 0.5 Mg-3 Mg/3 Ml Soln) 3 ml INHALATION RT-Q4H PRN PRN Reason: shortness of breath Last Admin: 02/26/18 08:26 Dose: 3 ml Allopurinol (Zyloprim) 300 mg PO DAILY [facility] Last Admin: 03/02/18 08:55 Dose: 300 mg Amiodarone HCl (Cordarone) 100 mg PO DAILY [facility] Aspirin (Aspirin) 81 mg PO DAILY [facility] Last Admin: 03/02/18 08:55 Dose: 81 mg Atorvastatin Calcium (Lipitor) 20 mg PO HS [facility] Last Admin: 03/01/18 21:01 Dose: 20 mg Benzocaine/Menthol (Cepacol Lozenge) 1 each MUCOUS MEM Q4HR PRN PRN Reason: Cough Last Admin: 02/27/18 23:14 Dose: 1 each Cholecalciferol (Vitamin D3) 2,000 unit PO DAILY [facility] Last Admin: 03/02/18 08:55 Dose: 2,000 unit Clindamycin HCl (Cleocin) 300 mg PO TID [facility] Last Admin: 03/02/18 09:00 Dose: 300 mg Furosemide (Lasix) 40 mg IV Q12HR [facility] Last Admin: 03/02/18 08:56 Dose: 40 mg Levofloxacin (Levaquin) 250 mg PO DAILY@1600 [facility] Last Admin: 03/01/18 17:21 Dose: 250 mg Levothyroxine Sodium (Synthroid) 50 mcg PO 0630 [facility] Last Admin: 03/02/18 06:31 Dose: 50 mcg Losartan Potassium (Cozaar) 50 mg PO HS [facility] Metolazone (Zaroxolyn) 2.5 mg PO DAILY [facility] Metoprolol Tartrate (Lopressor) 50 mg PO DAILY [facility] Miscellaneous Information (Pneumonia Protocol Utilized) 1 each PO ONCE PRN PRN Reason: Per Protocol Nitroglycerin (Nitrostat) 0.4 mg SUBLINGUAL Q5M PRN PRN Reason: Chest Pain Potassium Chloride (K-Dur 20) 20 meq PO DAILY [facility] Last Admin: 03/02/18 08:55 Dose: 20 meq Silver Sulfadiazine (Silvadene Cream) 1 applic TOPICAL BID [facility] Last Admin: 03/02/18 09:02 Dose: Not Given Spironolactone (Aldactone) 12.5 mg PO DAILY [facility] Warfarin Sodium (Coumadin) 5 mg PO ONCE@1800 ONE Stop: 03/02/18 18:01 Objective - Vital Signs Vital signs: Vital Signs Temp 98.2 F 03/02/18 04:00 Pulse 73 03/02/18 12:00 Resp 18 03/02/18 12:00 BP 124/80 03/02/18 12:00 Pulse Ox 96 03/02/18 12:00 Intake & Output 03/01/18 03/02/18 03/02/18 18:59 06:59 18:59 Intake Total 684 600 360 Output Total 1550 500 Balance 684 -950 -140 Weight 159.9 kg Intake: Oral 684 600 360 Output: Urine 1550 500 Other: Voiding Method Urinal # Voids 1 1 - Exam GENERAL EXAM GEN. APPEARANCE: alert, in no apparent distress HEAD EXAM: atraumatic, normocephalic, normal inspection EYE EXAM: normal appearance, PERRL, EOMI. Absent: scleral icterus, conjunctival injection, periorbital swelling ENT EXAM: normal exam, mucous membranes moist NECK EXAM: No JVD. No lymphadenopathy RESPIRATORY EXAM: Diminished bilateral breath sounds that are distant. CARDIOVASCULAR EXAM: Heart sounds muffled. GI/ABDOMINAL EXAM: soft, normal bowel sounds. No tenderness or distention. Difficult to appreciate organomegaly due to huge body habitus. EXTREMITIES EXAM: Left lower extremity with extensive bullae, few of them popped open with serous discharge NEUROLOGICAL EXAM: alert, oriented X3, no focal neurological deficits PSYCHIATRIC EXAM: normal affect, normal mood SKIN EXAM: warm, dry, intact, normal color. Absent: rash - Labs CBC & Chem 7: 03/02/18 06:47 03/02/18 06:47 Labs: Abnormal Lab Results - Last 24 Hours (Table) 03/02/18 03/02/18 03/02/18 Range/Units 06:47 06:47 06:47 WBC 14.8 H (3.8-10.6) k/uL MCHC 30.7 L (31.0-37.0) g/dL Neutrophils # (Manual) 11.60 H (1.3-7.7) k/uL Metamyelocytes # (Man) 0.59 H (0) k/uL Myelocytes # (Manual) 0.59 H (0) k/uL PT 17.7 H (9.0-12.0) sec INR 1.8 H (<1.2) Carbon Dioxide 31 H (22-30) mmol/L BUN 27 H (9-20) mg/dL Creatinine 1.28 H (0.66-1.25) mg/dL Assessment and Plan Assessment: ASSESSMENT Acute on chronic congestive heart failure exacerbation Systolic heart failure EF of 20% Left lower extremity cellulitis Bilateral lower extremity venous insufficiency Chronic venous stasis dermatitis Bilateral onychomycosis Essential hypertension Hyperlipidemia Hypothyroidism Morbid obesity with BMI of 52.1 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 He is currently on levofloxacin for his acute bronchitis and clindamycin for his lower extremity cellulitis. Patient had mild swelling of her face left upper extremity yesterday for which a Doppler was obtained and was negative for DVT. We'll continue the patient on current medication regimen. Further recommendations to follow depending progress of the patient. Overall prognosis is guarded.
--- NOTE | 2018-03-02 16:16 | PN ---
PROGRESS NOTE This is a gentleman who has not been very compliant with his office visits. He saw Dr. Goodwin in April. He came in with exacerbation of congestive heart failure. He also has atrial fibrillation which appears to be chronic. He is less short of breath. He feels better, but his weight has not improved. His vital signs are stable. Blood pressure is about 124, heart rate is in the 70s. Rhythm appears to be atrial fibrillation. There is JVD of 1 cm. There is no carotid bruit. Heart exam reveals S1, S2 with an irregular rhythm, short systolic murmur. Lungs reveal diminished air entry on both sides with fine rales in the right base. Abdomen is distended. Lower extremities reveal bilateral edema which apparently is better, according to the patient. I have reviewed his medications and I am recommending that we add Zaroxolyn 2.5 mg daily to his regimen and decrease the metoprolol and amiodarone. Amiodarone is at 200 mg b.i.d. I will decrease it to 100 mg daily, since the rate is somewhat low and on some of the rhythm strips he has underlying IVCD of LBBB type. Metoprolol will be 50 mg daily. Zaroxolyn will be added. We will also add losartan 50 mg daily to his regimen. I reviewed the echocardiogram from February 23. Ejection fraction is about 20% to 25% with global decrease in contractility, and right-sided pressures were not very well quantified. Prognosis remains guarded. I discussed my thoughts and the management changes in detail with the patient. CARINE / MARTAN: [id number] /
[2018-03-02] MEDS: METOLAZONE 2.5 MG TAB PO SCH (16:45)
[2018-03-02] MEDS: LEVOFLOXACIN 250 MG TAB PO SCH (16:45)
[2018-03-02] MEDS ORDERED: WARFARIN 5 MG TAB PO ONE (18:00)
[2018-03-02] MEDS: LOSARTAN 50 MG TAB PO SCH (20:15)
[2018-03-02] MEDS: ATORVASTATIN 20 MG TAB PO SCH (20:15)
[2018-03-03] MEDS: LEVOTHYROXINE 50 MCG TAB PO SCH (05:36)
[2018-03-03 06:19] LABS: HCT 45.3 % (39.0-53.0); HGB 13.8 gm/dL (13.0-17.5); MCH 27.6 pg (25.0-35.0); MCHC 30.5 g/dL (31.0-37.0); MCV 90.5 fL (80.0-100.0); Mean Platelet Volume 10.7; Platelet Count 213 k/uL (150-450); RDW 15.4 % (11.5-15.5); WBC 17.1 k/uL (3.8-10.6)
[2018-03-03 06:25] LABS: Calcium 8.7 mg/dL (8.4-10.2); Magnesium 1.7 mg/dL (1.6-2.3); Potassium 3.9 mmol/L (3.5-5.1)
[2018-03-03 07:19] LABS: Band Neutrophils % 1 %; Eosinophils # (M) 0.68 k/uL (0-0.7); Monocytes # (M) 1.03 k/uL (0-1.0); Myelocytes # (M) 0.51 k/uL (0); Myelocytes % 3 %; Neutrophils % (M) 80 %; Nucleated Red Blood Cells 0 /100 WBC (0-0); Total Cells Counted 200
[2018-03-03 07:20] LABS: Large Platelets Present
[2018-03-03] MEDS: SPIRONOLACTONE 25 MG TAB PO SCH (08:53)
[2018-03-03] MEDS: CLINDAMYCIN 150 MG CAP PO SCH (08:54)
[2018-03-03] MEDS: AMIODARONE 100 MG TAB PO SCH (08:54)
[2018-03-03] MEDS: METOLAZONE 2.5 MG TAB PO SCH (08:54)
[2018-03-03] MEDS: ASPIRIN 81 MG PO SCH (08:54)
[2018-03-03] MEDS: METOPROLOL TARTRATE 50 MG TAB PO SCH (08:54)
[2018-03-03] MEDS: CHOLECALCIFEROL 1,000 UNIT TAB PO SCH (08:54)
[2018-03-03] MEDS: ALLOPURINOL 300 MG TAB PO SCH (08:55)
[2018-03-03] MEDS: FUROSEMIDE 10 MG/ML 4 ML VIAL IV SCH ×2 (08:55→21:01)
[2018-03-03] MEDS: POTASSIUM CHLORIDE ER 20 MEQ TAB.ER PO SCH (08:55)
[2018-03-03] MEDS: SILVER sulfADIAZINE Cream 400 GM 1 APPLIC APPLIC TOPICAL SCH ×2 (08:56→21:01)
--- NOTE | 2018-03-03 09:57 | P.PN ---
Subjective Patient is seen in follow-up for acute kidney injury on chronic kidney disease. Renal function is stable with creatinine at 1.31 today. Overall the patient feels well. Admits to good urine output. Dyspnea is better. No vomiting or diarrhea. He is maintained on Lasix 40 mg IV twice daily. He has history of systolic CHF with ejection fraction of 20-25%. Vital signs are stable. General: The patient appeared well nourished and normally developed. HEENT: Head exam is unremarkable. Neck is without jugular venous distension. LUNGS: Lungs are clear to auscultation and percussion. Breath sounds decreased. HEART: Rate and Rhythm are regular. First and second heart sounds normal. No murmurs, rubs or gallops. ABDOMEN: Abdominal exam reveals normal bowel sounds. Non-tender and non- distended. No evidence of peritonitis. EXTREMITITES: 1+ edema in lower extremities. Objective - Vital Signs Vital signs: Vital Signs Temp 98.1 F 03/03/18 08:00 Pulse 77 03/03/18 08:00 Resp 16 03/03/18 08:00 BP 124/80 03/03/18 08:00 Pulse Ox 92 L 03/03/18 03:24 Intake & Output 03/02/18 03/03/18 03/03/18 18:59 06:59 18:59 Intake Total 360 34 Output Total 500 1925 400 Balance -140 -1891 -400 Intake: IV 34 0.9 30 furosemide 4 Oral 360 Output: Urine 500 1675 400 Stool 250 Other: Voiding Method Urinal # Voids 1 1 - Labs CBC & Chem 7: 03/03/18 06:00 03/03/18 06:00 Labs: Abnormal Lab Results - Last 24 Hours (Table) 03/03/18 03/03/18 03/03/18 Range/Units 06:00 06:00 06:00 WBC 17.1 H (3.8-10.6) k/uL MCHC 30.5 L (31.0-37.0) g/dL Neutrophils # (Manual) 13.80 H (1.3-7.7) k/uL Monocytes # (Manual) 1.03 H (0-1.0) k/uL Myelocytes # (Manual) 0.51 H (0) k/uL PT 20.0 H (9.0-12.0) sec INR 2.0 H (<1.2) BUN 28 H (9-20) mg/dL Creatinine 1.31 H (0.66-1.25) mg/dL Assessment and Plan Plan: Assessment: 1. Nonoliguric acute kidney injury mostly prerenal secondary to cardiorenal syndrome. Renal function stable. 2. Chronic kidney disease stage III secondary to nephrosclerosis with baseline creatinine near 1.4. 3. Systolic CHF with ejection fraction of 20-25%. 4. Metabolic acidosis maintained on oral bicarbonate. Bicarb level of 28. 5. Volume overload. Improving. 6. Left upper extremity swelling. No evidence of DVT. Plan: Maintain Lasix 40 mg IV twice daily. Also on metolazone and Aldactone. Discontinued bicarb. Avoid nephrotoxins. Maintain low salt diet.
[2018-03-03] MEDS ORDERED: MAGNESIUM SULFATE-D5W PMX 1 GM in DEXTROSE/WATER 1 100ML.BAG IVPB ONE (10:00)
--- NOTE | 2018-03-03 14:09 | P.PN ---
Subjective Progress Note Date: 03/03/18 Principal diagnosis: CHF exacerbation and left lower extremity cellulitis Mr. López is a 62-year-old male with a past medical history of congestive heart failure, L chronic lower extremity venous insufficiency admitted to the hospital with a chief complaint of increased bilateral lower extremity swelling and difficulty in breathing. He is currently being treated for CHF exacerbation. Initially the patient was on IV Lasix drip and dopamine drip and eventually went into renal failure for which she was given IV fluids. Now the patient's renal status is slowly improving and he is back on IV Lasix. Patient is sitting up in the bed. No acute distress. No overnight active issues reported by nursing staff. in regards to his left lower extremity swelling patient reports that it has been the same. Initially he said that the swelling was less but now he thinks it is back again. On review of systems Constitutional-denies having fevers chills or rigors Cardiovascular-no chest pain or palpitations Respiratory-difficulty in breathing improved but no cough GI -no abdominal pain nausea vomiting or diarrhea -no dysuria or hematuria Active Medications Albuterol/Ipratropium (Duoneb 0.5 Mg-3 Mg/3 Ml Soln) 3 ml INHALATION RT-Q4H PRN PRN Reason: shortness of breath Last Admin: 02/26/18 08:26 Dose: 3 ml Allopurinol (Zyloprim) 300 mg PO DAILY [facility] Last Admin: 03/03/18 08:55 Dose: 300 mg Amiodarone HCl (Cordarone) 100 mg PO DAILY [facility] Last Admin: 03/03/18 08:54 Dose: 100 mg Aspirin (Aspirin) 81 mg PO DAILY [facility] Last Admin: 03/03/18 08:54 Dose: 81 mg Atorvastatin Calcium (Lipitor) 20 mg PO HS [facility] Last Admin: 03/02/18 20:15 Dose: 20 mg Benzocaine/Menthol (Cepacol Lozenge) 1 each MUCOUS MEM Q4HR PRN PRN Reason: Cough Last Admin: 02/27/18 23:14 Dose: 1 each Cholecalciferol (Vitamin D3) 2,000 unit PO DAILY [facility] Last Admin: 03/03/18 08:54 Dose: 2,000 unit Clindamycin HCl (Cleocin) 300 mg PO TID [facility] Last Admin: 03/03/18 08:54 Dose: 300 mg Furosemide (Lasix) 40 mg IV Q12HR [facility] Last Admin: 03/03/18 08:55 Dose: 40 mg Levothyroxine Sodium (Synthroid) 50 mcg PO 0630 [facility] Last Admin: 03/03/18 05:36 Dose: 50 mcg Losartan Potassium (Cozaar) 50 mg PO HS [facility] Last Admin: 03/02/18 20:15 Dose: 50 mg Metolazone (Zaroxolyn) 2.5 mg PO DAILY [facility] Last Admin: 03/03/18 08:54 Dose: 2.5 mg Metoprolol Tartrate (Lopressor) 50 mg PO DAILY [facility] Last Admin: 03/03/18 08:54 Dose: 50 mg Miscellaneous Information (Pneumonia Protocol Utilized) 1 each PO ONCE PRN PRN Reason: Per Protocol Nitroglycerin (Nitrostat) 0.4 mg SUBLINGUAL Q5M PRN PRN Reason: Chest Pain Potassium Chloride (K-Dur 20) 20 meq PO DAILY [facility] Last Admin: 03/03/18 08:55 Dose: 20 meq Silver Sulfadiazine (Silvadene Cream) 1 applic TOPICAL BID [facility] Last Admin: 03/03/18 08:56 Dose: 1 applic Spironolactone (Aldactone) 12.5 mg PO DAILY [facility] Last Admin: 03/03/18 08:53 Dose: 12.5 mg Objective - Vital Signs Vital signs: Vital Signs Temp 98.0 F 03/03/18 12:00 Pulse 69 03/03/18 12:00 Resp 17 03/03/18 12:00 BP 103/66 03/03/18 12:00 Pulse Ox 97 03/03/18 12:00 Intake & Output 03/02/18 03/03/18 03/03/18 18:59 06:59 18:59 Intake Total 360 34 222 Output Total 500 1925 400 Balance -140 -1891 -178 Weight 156.2 kg Intake: IV 34 0.9 30 furosemide 4 Oral 360 222 Output: Urine 500 1675 400 Stool 250 Other: Voiding Method Urinal Urinal # Voids 1 1 - Exam GEN. APPEARANCE: alert, in no apparent distress HEAD EXAM: atraumatic, normocephalic, normal inspection EYE EXAM: normal appearance, PERRL, EOMI. Absent: scleral icterus, conjunctival injection, periorbital swelling ENT EXAM: normal exam, mucous membranes moist NECK EXAM: No JVD. No lymphadenopathy RESPIRATORY EXAM: Diminished bilateral breath sounds that are distant. CARDIOVASCULAR EXAM: Heart sounds muffled. GI/ABDOMINAL EXAM: soft, normal bowel sounds. No tenderness or distention. Difficult to appreciate organomegaly due to huge body habitus. EXTREMITIES EXAM: Left lower extremity with extensive bullae, few of them popped open with serous discharge. The redness is up to his mid thigh region. Appears to be worse compared to yesterday. NEUROLOGICAL EXAM: alert, oriented X3, no focal neurological deficits PSYCHIATRIC EXAM: normal affect, normal mood SKIN EXAM: warm, dry, intact, normal color. Absent: rash - Labs CBC & Chem 7: 03/03/18 06:00 03/03/18 06:00 Labs: Abnormal Lab Results - Last 24 Hours (Table) 03/03/18 03/03/18 03/03/18 Range/Units 06:00 06:00 06:00 WBC 17.1 H (3.8-10.6) k/uL MCHC 30.5 L (31.0-37.0) g/dL Neutrophils # (Manual) 13.80 H (1.3-7.7) k/uL Monocytes # (Manual) 1.03 H (0-1.0) k/uL Myelocytes # (Manual) 0.51 H (0) k/uL PT 20.0 H (9.0-12.0) sec INR 2.0 H (<1.2) BUN 28 H (9-20) mg/dL Creatinine 1.31 H (0.66-1.25) mg/dL Assessment and Plan Assessment: ASSESSMENT Acute on chronic congestive heart failure exacerbation Systolic heart failure EF of 20% Left lower extremity cellulitis Bilateral lower extremity venous insufficiency Chronic venous stasis dermatitis Bilateral onychomycosis Essential hypertension Hyperlipidemia Hypothyroidism Morbid obesity with BMI of 52.1 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 He is currently on levofloxacin for his acute bronchitis- complicated it for 7 days, so it's been discontinued today. He is not responding to clindamycin, so it will be discontinued and patient will be started on vancomycin. We'll place infectious disease consult. Patient had mild swelling of his left upper extremity for which a Doppler was obtained and was negative for DVT. We'll continue the patient on current medication regimen. Further recommendations to follow depending progress of the patient. Overall prognosis is guarded.
--- NOTE | 2018-03-03 15:02 | PN ---
PROGRESS NOTE This is a gentleman who has been admitted to the hospital with increasing shortness of breath. He is quite noncompliant. However after my evaluation yesterday, I gave him additional Zaroxolyn to improve the diuresis. He has underlying atrial fibrillation with IVCD of LBBB type with short runs of what seems to be a wide QRS tachycardia which is probably apparently conducted beats. He is feeling better today. His breathing is easier. He denies chest pain. His edema has improved and his weight has come down. Plan is to continue current medical regimen for this patient. He has some increase in PVCs and we will supplement his magnesium. Continue his other medications and see how he does. Vital signs are stable. There is evidence of JVD of 1 cm. No carotid bruit. S1-S2 heard normally. Lungs reveal bilateral improved air entry with fine rales over the bases. I am recommending that we continue his current medical regimen including diuresis and see how he does. His echocardiogram revealed a significantly decreased systolic function with an estimated ejection fraction of 20-25 percent with pulmonary hypertension. Right-sided pressures however, were not very well quantified. Patient does have JVD. Plan is to continue current medical regimen including daily weights and see how he does. His rate control appears to be much better. This gentleman did have elevated troponin, but I do not believe this reflects any significant myocardial injury. Down the road, he will require a coronary angiography as well to establish the etiology of his cardiomyopathy. His creatinine has shown improvement. MMODL / IJN: [id number] /
[2018-03-03] MEDS ORDERED: VANCOMYCIN IV PER PHARMACY 1 EACH MISC MISCELLANE PRN (15:13)
[2018-03-03] MEDS ORDERED: VANCOMYCIN 2,500 MG in SODIUM CHLORIDE 0.9% 500 ML 500 ML IVPB ONE (15:30)
--- NOTE | 2018-03-03 16:05 | PN ---
PROGRESS NOTE This is a gentleman with history of significant LV dysfunction, troponin elevation, renal dysfunction who has not been very compliant with physician followups. His weight has improved remarkably today. MMARLENE / MARTAN: [id number] /
[2018-03-03] MEDS: LOSARTAN 50 MG TAB PO SCH (21:01)
[2018-03-03] MEDS: ATORVASTATIN 20 MG TAB PO SCH (21:01)
[2018-03-04] MEDS: diphenhydrAMINE 25 MG CAP PO PRN (00:21)
[2018-03-04] MEDS: LEVOTHYROXINE 50 MCG TAB PO SCH (06:13)
[2018-03-04] MEDS ORDERED: VANCOMYCIN 2,250 MG in SODIUM CHLORIDE 0.9% 500 ML 500 ML IVPB SCH (07:00)
[2018-03-04 08:15] LABS: Calcium 8.5 mg/dL (8.4-10.2); Magnesium 1.8 mg/dL (1.6-2.3); Potassium 3.9 mmol/L (3.5-5.1)
[2018-03-04 08:42] LABS: HCT 46.5 % (39.0-53.0); HGB 14.7 gm/dL (13.0-17.5); MCH 27.8 pg (25.0-35.0); MCHC 31.5 g/dL (31.0-37.0); MCV 88.2 fL (80.0-100.0); Mean Platelet Volume 12.4; Platelet Count 190 k/uL (150-450); RBC 5.27 m/uL (4.30-5.90); RDW 15.3 % (11.5-15.5); WBC 23.7 k/uL (3.8-10.6)
[2018-03-04] MEDS: METOLAZONE 2.5 MG TAB PO SCH (09:21)
[2018-03-04] MEDS: ASPIRIN 81 MG PO SCH (09:21)
[2018-03-04] MEDS: SPIRONOLACTONE 25 MG TAB PO SCH (09:22)
[2018-03-04] MEDS: CHOLECALCIFEROL 1,000 UNIT TAB PO SCH (09:22)
[2018-03-04] MEDS: FUROSEMIDE 10 MG/ML 4 ML VIAL IV SCH (09:22)
[2018-03-04] MEDS: POTASSIUM CHLORIDE ER 20 MEQ TAB.ER PO SCH (09:22)
[2018-03-04] MEDS: ALLOPURINOL 300 MG TAB PO SCH (09:22)
[2018-03-04] MEDS: AMIODARONE 100 MG TAB PO SCH (09:22)
[2018-03-04] MEDS: METOPROLOL TARTRATE 50 MG TAB PO SCH (09:22)
[2018-03-04] MEDS: SILVER sulfADIAZINE Cream 400 GM 1 APPLIC APPLIC TOPICAL SCH (09:35)
[2018-03-04 09:42] LABS: Band Neutrophils % 2 %; Eosinophils # (M) 0.95 k/uL (0-0.7); Lymphocytes # (M) 0.47 k/uL (1.0-4.8); Monocytes # (M) 0.71 k/uL (0-1.0); Myelocytes # (M) 0.24 k/uL (0); Myelocytes % 1 %; Neutrophils % (M) 90 %; Nucleated Red Blood Cells 0 /100 WBC (0-0); Total Cells Counted 200
[2018-03-04 09:43] LABS: Large Platelets Present; Toxic Granulation Present
--- NOTE | 2018-03-04 13:55 | P.PN ---
Subjective Progress Note Date: 03/04/18 Principal diagnosis: CHF exacerbation and left lower extremity cellulitis Mr. López is a 62-year-old male with a past medical history of congestive heart failure, L chronic lower extremity venous insufficiency admitted to the hospital with a chief complaint of increased bilateral lower extremity swelling and difficulty in breathing. He is currently being treated for CHF exacerbation. Initially the patient was on IV Lasix drip and dopamine drip and eventually went into renal failure for which she was given IV fluids. Now the patient's renal status is slowly improving and he is back on IV Lasix. On 03/04/2018 - No overnight active issues reported by nursing staff. In regards to his left lower extremity swelling patient reports that his pain is under much better control. On review of systems Constitutional-denies having fevers chills or rigors Cardiovascular-no chest pain or palpitations Respiratory-difficulty in breathing improved, cough with sputum that is brownish yellow in color GI -no abdominal pain nausea vomiting or diarrhea -no dysuria or hematuria Active Medications Albuterol/Ipratropium (Duoneb 0.5 Mg-3 Mg/3 Ml Soln) 3 ml INHALATION RT-Q4H PRN PRN Reason: shortness of breath Last Admin: 02/26/18 08:26 Dose: 3 ml Allopurinol (Zyloprim) 300 mg PO DAILY [facility] Last Admin: 03/04/18 09:22 Dose: 300 mg Amiodarone HCl (Cordarone) 100 mg PO DAILY [facility] Last Admin: 03/04/18 09:22 Dose: 100 mg Aspirin (Aspirin) 81 mg PO DAILY [facility] Last Admin: 03/04/18 09:21 Dose: 81 mg Atorvastatin Calcium (Lipitor) 20 mg PO HS [facility] Last Admin: 03/03/18 21:01 Dose: 20 mg Benzocaine/Menthol (Cepacol Lozenge) 1 each MUCOUS MEM Q4HR PRN PRN Reason: Cough Last Admin: 02/27/18 23:14 Dose: 1 each Cholecalciferol (Vitamin D3) 2,000 unit PO DAILY [facility] Last Admin: 03/04/18 09:22 Dose: 2,000 unit Diphenhydramine HCl (Benadryl) 25 mg PO TID PRN PRN Reason: Itching Last Admin: 03/04/18 00:21 Dose: 25 mg Furosemide (Lasix) 40 mg IV Q12HR [facility] Last Admin: 03/04/18 09:22 Dose: 40 mg Vancomycin HCl 2,250 mg/ (Sodium Chloride) 500 mls @ 167 mls/hr IVPB Q24H [facility] Last Admin: 03/04/18 06:13 Dose: 167 mls/hr Levothyroxine Sodium (Synthroid) 50 mcg PO 0630 [facility] Last Admin: 03/04/18 06:13 Dose: 50 mcg Losartan Potassium (Cozaar) 25 mg PO HS [facility] Metolazone (Zaroxolyn) 2.5 mg PO Q48H [facility] Metoprolol Tartrate (Lopressor) 50 mg PO DAILY [facility] Last Admin: 03/04/18 09:22 Dose: 50 mg Miscellaneous Information (Pneumonia Protocol Utilized) 1 each PO ONCE PRN PRN Reason: Per Protocol Nitroglycerin (Nitrostat) 0.4 mg SUBLINGUAL Q5M PRN PRN Reason: Chest Pain Potassium Chloride (K-Dur 20) 20 meq PO DAILY [facility] Last Admin: 03/04/18 09:22 Dose: 20 meq Silver Sulfadiazine (Silvadene Cream) 1 applic TOPICAL BID [facility] Last Admin: 03/04/18 09:35 Dose: 1 applic Spironolactone (Aldactone) 12.5 mg PO DAILY [facility] Last Admin: 03/04/18 09:22 Dose: 12.5 mg Objective - Vital Signs Vital signs: Vital Signs Temp 97.6 F 03/04/18 11:59 Pulse 65 03/04/18 11:59 Resp 18 03/04/18 11:59 BP 106/62 03/04/18 11:59 Pulse Ox 100 03/04/18 11:59 Intake & Output 03/03/18 03/04/18 03/04/18 18:59 06:59 18:59 Intake Total 444 222 Output Total 400 500 Balance 44 -278 Weight 156.2 kg 156.2 kg Intake: Oral 444 222 Output: Urine 400 Stool 500 Other: Voiding Method Urinal Urinal Urinal - Exam GEN. APPEARANCE: alert, in no apparent distress HEAD EXAM: atraumatic, normocephalic, normal inspection EYE EXAM: normal appearance, PERRL, EOMI. Absent: scleral icterus, conjunctival injection, periorbital swelling ENT EXAM: normal exam, mucous membranes moist NECK EXAM: No JVD. No lymphadenopathy RESPIRATORY EXAM: Diminished bilateral breath sounds that are distant. CARDIOVASCULAR EXAM: Heart sounds muffled. GI/ABDOMINAL EXAM: soft, normal bowel sounds. No tenderness or distention. Difficult to appreciate organomegaly due to huge body habitus. EXTREMITIES EXAM: Left lower extremity with extensive bullae, few of them popped open with serous discharge. The redness is up to his mid thigh region. Appears to be worse compared to yesterday. NEUROLOGICAL EXAM: alert, oriented X3, no focal neurological deficits PSYCHIATRIC EXAM: normal affect, normal mood SKIN EXAM: Diffuse rash that has been present for the past couple of days mostly on the left lower extremity and left upper extremity and also on the left side of the chest. Patient states that he mostly sleeps on his left side due to chronic low back pain and obesity. - Labs CBC & Chem 7: 03/04/18 06:45 03/04/18 06:45 Labs: Abnormal Lab Results - Last 24 Hours (Table) 03/04/18 03/04/18 Range/Units 06:45 06:45 WBC 23.7 H (3.8-10.6) k/uL Neutrophils # (Manual) 21.80 H (1.3-7.7) k/uL Lymphocytes # (Manual) 0.47 L (1.0-4.8) k/uL Eosinophils # (Manual) 0.95 H (0-0.7) k/uL Myelocytes # (Manual) 0.24 H (0) k/uL Sodium 135 L (137-145) mmol/L Chloride 96 L (98-107) mmol/L BUN 29 H (9-20) mg/dL Creatinine 1.61 H (0.66-1.25) mg/dL Assessment and Plan Assessment: ASSESSMENT Acute on chronic congestive heart failure exacerbation Systolic heart failure EF of 20% Maculopapular rash on the left side of the body - most likely due to drug ALLERGIES Left lower extremity cellulitis Bilateral lower extremity venous insufficiency Chronic venous stasis dermatitis Bilateral onychomycosis Essential hypertension Hyperlipidemia Hypothyroidism Morbid obesity with BMI of 52.1 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 He is currently on levofloxacin for his acute bronchitis- completed 7 days, so it's been discontinued on 03/03/12. As the patient's left lower extremity cellulitis was not responding to clindamycin, his antibiotic is being changed to vancomycin yesterday. Dr. Castillo has been consulted and it's pending. Patient had mild swelling of his left upper extremity for which a Doppler was obtained and was negative for DVT. We'll continue the patient on current medication regimen. Further recommendations to follow depending progress of the patient. Overall prognosis is guarded.
[2018-03-04] MEDS: FUROSEMIDE 40 MG TAB PO SCH (15:37)
[2018-03-04] MEDS: methylPREDNISolone SOD SUCCI 125 MG/2 ML VIAL IV SCH ×3 (15:37→23:27)
[2018-03-04] MEDS: ceFAZolin IN SWFI 2 GM/20 ML SYRINGE IVP SCH ×2 (15:37→23:26)
[2018-03-04] MEDS ORDERED: methylPREDNISolone SOD SUCCI 125 MG/2 ML VIAL IV SCH (16:00)
--- NOTE | 2018-03-04 16:09 | PN ---
PROGRESS NOTE This is a gentleman with lower extremity cellulitis, edema, anasarca type picture from which he has improved a lot. He has a cardiomyopathy of unclear etiology, ejection fraction of less than 25%. I had given him Zaroxolyn and with this he has diuresed a lot. He actually feels better and breathing much easier today. He is going to have Infectious Disease input regarding his cellulitis. He remains in atrial fibrillation, rate is fairly well controlled on the current regimen. I will decrease the Zaroxolyn to 2.5 mg every other day and switch him to oral Lasix with 80 mg in the morning and 40 in the evening. Increase activity and plan for discharge. I discussed my thoughts in detail with the patient. Thank you very much for the consult. Physical examination reveals he has JVD of 1 cm. No carotid bruit. S1, S2 with irregular rhythm noted. Short systolic murmur noted. Lungs reveal improved air entry. Abdomen is soft. Lower extremity edema has improved and there is evidence of cellulitis unchanged. MMODL / IJN: [id number] /
--- NOTE | 2018-03-04 19:50 | PN ---
PROGRESS NOTE Patient is seen for followup for acute kidney injury. Patient's serum creatinine has improved to about 1.2-1.3. His creatinine is up to 1.6 today. He has been started on Cozaar. Blood pressure remains slightly on the lower side. The patient states he has been voiding well. He is maintained on IV Lasix. Overall patient states he feels well. PHYSICAL EXAMINATION: This morning blood pressure was 106/62, heart rate 65 per minute. He is afebrile. Examination of the heart S1, S2. Examination of the lungs bilateral breath sounds are heard. Abdomen is soft, nontender, obese. Examination of lower extremities shows significant edema bilaterally. LABS: Sodium of 135, potassium 3.9, chloride 96, BUN 29, serum creatinine 1.6, hemoglobin at 14.7 g/dL. ASSESSMENT: 1. Acute kidney injury initially prerenal and improved with IV hydration. However, patient was volume overloaded and he has been diuresed. Serum creatinine did go up to 1.6 from 1.3 yesterday. The patient was also started on Cozaar. His systolic blood pressure has been on the lower side with systolic around 105 mmHg. I will decrease the dose of Cozaar. We will repeat labs in a.m. Agree with changing the diuretics to p.o. Possible discharge tomorrow with plans to follow up as outpatient in about 1 week's time. 2. Severe cardiomyopathy, ejection fraction 25-30 percent. 3. Chronic kidney disease secondary to nephrosclerosis NKF stage III, with baseline creatinine about 1.4. 4. Congestive heart failure, acute on top of chronic, mainly systolic. PLAN: Decrease dose of Cozaar. Repeat labs in a.m. Possible discharge tomorrow and follow up as outpatient in one week. MMODL / IJN: [id number] /
[2018-03-04] MEDS ORDERED: LOSARTAN 50 MG TAB PO SCH (21:00)
[2018-03-04] MEDS: ATORVASTATIN 20 MG TAB PO SCH (23:25)
--- NOTE | 2018-03-04 23:36 | CONS ---
CONSULTATION DATE OF SERVICE: 03/04/2018. REASON FOR CONSULTATION: Acute left lower extremity cellulitis. HISTORY OF PRESENT ILLNESS: The patient is a 62-year-old morbidly obese male who presented to the [facility] ER on 02/05/2013 with chief complaints of left leg swelling and redness. The symptoms had been going on for a few days before coming to the hospital. He did have mild dull aching pain in the left leg, intensity about 2 to 3 out of 10, no radiation. The patient at that time did have lower extremity Doppler which was negative for DVT. The patient has been diagnosed with acute left lower extremity cellulitis, congestive heart failure, and acute renal failure and has been treated by multiple consultants including Pulmonary, Cardiology, and Nephrology. The patient was initially on vancomycin which was discontinued and has been treated with clindamycin IV in addition to the Silvadene cream to the left leg and Kerlix. The patient did have elevated white count that remains to be elevated. The patient did develop significant generalized maculopapular rash with significant itching, but no difficulty breathing or tongue swelling, possibly related to clindamycin that was discontinued yesterday. He was started on vancomycin and Infectious Disease was consulted today, after 10 days, for further recommendation regarding his left lower extremity cellulitis. The patient's left leg remains to be swollen and red. He continues to have dull aching pain into the leg about 4 to 5/10, and no radiation. Currently with no skin breakdown and no drainage. The patient did have generalized rash with burning and significant itching. No difficulty breathing or tongue swelling. No high-grade fever. REVIEW OF SYSTEMS: CONSTITUTIONAL: Positive for weakness. No fever. EYES: No complaints. ENT: No complaints. RESPIRATORY: Shortness of breath. No chest pain. No cough. CARDIOVASCULAR: As per HPI. GENITOURINARY: No complaint. GASTROINTESTINAL: No complaint. MUSCULOSKELETAL: No complaint. INTEGUMENTARY: As per HPI. PSYCHOLOGICAL: No complaint. ENDOCRINE: No complaint. NEUROLOGIC: No complaint. PAST MEDICAL HISTORY: Coronary artery disease, heart failure, hypertension, hyperlipidemia, hypothyroidism. PAST SURGICAL HISTORY: Adenoidectomy, tonsillectomy, cataract surgery. SOCIAL HISTORY: Denies smoking, drinking, or drug use. FAMILY HISTORY: Father with CVA and TIA. Mother from cancer at age of 80, unknown type documented. ALLERGIES: No known drug allergies. MEDICATIONS: The patient is currently on: 1. DuoNeb. 2. Zyloprim. 3. Amiodarone. 4. Aspirin. 5. Lipitor. 6. . 7. Vitamin D3. 8. Lasix. 9. Synthroid. 10.Cozaar. 11.Zaroxolyn. 12.Lopressor. 13.Nitrostat. 14.Aldactone. 15.Vancomycin, pharmacy to dose. EXAMINATION: Blood pressure is 115/58 with a pulse of 69, temperature 96.5. He is 96% on room air. GENERAL DESCRIPTION: A middle-aged male lying in bed in no distress. No tachypnea or accessory muscle of respiration use. HEENT: Shows no pallor or scleral icterus. Oral mucosa is moist. No pharyngeal erythema or thrush. NECK: Trachea central, no thyromegaly. LUNGS: Unlabored breathing. Decreased breath sounds in the bases. No wheeze or crackle. HEART: S1, S2. Regular rate and rhythm. ABDOMEN: No tenderness, no rigidity. EXTREMITIES: Left leg with significant swelling and redness with redness which is diffuse. SKIN: Did have some superficial ulceration from ruptured blister. The skin on the side did show diffuse maculopapular rash with no blister formation. NEUROLOGIC: The patient is awake, alert, oriented. Mood affect normal. LABS: Hemoglobin is 14.7, white count 3.7, BUN of 29, creatinine 1.61. Electrolytes have been normal. Urine has been negative. serology was negative. DIAGNOSTIC IMPRESSION AND PLAN: 1. Patient admitted to the hospital with acute left lower extremity cellulitis. Did not responded very well to the clindamycin and the patient now has developed a generalized maculopapular rash, more likely secondary to possibly Silvadene. More likely contribution of clindamycin not entirely excluded, however, in view of the features mostly of his streptococcal disease clinically doubt MRSA or gram-negative infection. 2. Generalized maculopapular rash, question related to . PLAN: 1. Recommend to discontinue the Silvadene cream as well as vancomycin. Clinically doubt MRSA. Decrease risk of nephrotoxicity. 2. Hermes wrap to the left from just above to below the knee. 3. In view of significant extensive rash, the patient will be given 24 hours of IV Solu-Medrol. 4. We will add cefazolin 2 g every 8 hours for his left lower extremity cellulitis. 5. We will follow up on clinical condition and culture to further adjust medication if needed. Thank you for this consultation. Will follow the patient along with you. CARINE / PATRICIA: [id number] /
[2018-03-05] MEDS: LEVOTHYROXINE 50 MCG TAB PO SCH (07:04)
[2018-03-05] MEDS: methylPREDNISolone SOD SUCCI 125 MG/2 ML VIAL IV SCH ×3 (07:05→16:17)
[2018-03-05 09:02] LABS: Calcium 8.8 mg/dL (8.4-10.2); Potassium 4.3 mmol/L (3.5-5.1)
[2018-03-05] MEDS: METOPROLOL TARTRATE 50 MG TAB PO SCH (09:03)
[2018-03-05] MEDS: ASPIRIN 81 MG PO SCH (09:03)
[2018-03-05] MEDS: CHOLECALCIFEROL 1,000 UNIT TAB PO SCH (09:03)
[2018-03-05] MEDS: SPIRONOLACTONE 25 MG TAB PO SCH (09:03)
[2018-03-05] MEDS: POTASSIUM CHLORIDE ER 20 MEQ TAB.ER PO SCH (09:03)
[2018-03-05] MEDS: ceFAZolin IN SWFI 2 GM/20 ML SYRINGE IVP SCH ×2 (09:04→16:17)
[2018-03-05] MEDS: ALLOPURINOL 300 MG TAB PO SCH (09:04)
[2018-03-05] MEDS: FUROSEMIDE 80 MG TAB PO SCH (09:04)
[2018-03-05] MEDS: AMIODARONE 100 MG TAB PO SCH (09:07)
[2018-03-05 09:17] LABS: Basophils % (A) 0 %; Eosinophils # (A) 0.1 k/uL (0-0.7); Eosinophils % (A) 1 %; HCT 46.8 % (39.0-53.0); HGB 15.2 gm/dL (13.0-17.5); Lymphocytes # (A) 0.6 k/uL (1.0-4.8); Lymphocytes % (A) 3 %; MCH 28.1 pg (25.0-35.0); MCHC 32.4 g/dL (31.0-37.0); MCV 86.7 fL (80.0-100.0); Mean Platelet Volume 13.7; Monocytes # (A) 1.3 k/uL (0-1.0); Monocytes % (A) 6 %; Neutrophils # (A) 19.5 k/uL (1.3-7.7); Neutrophils % (A) 90 %; Platelet Count 175 k/uL (150-450); RBC 5.39 m/uL (4.30-5.90); RDW 15.3 % (11.5-15.5); WBC 21.6 k/uL (3.8-10.6)
[2018-03-05 10:57] LABS: Large Platelets Present; Toxic Granulation Present
--- NOTE | 2018-03-05 13:22 | PN ---
PROGRESS NOTE Mr. Lóepz is a gentleman with cardiomyopathy and ulcers on his legs which Infectious Disease, Dr. Castillo, is seeing him. He has developed a rash all over the body and this may be related to either clindamycin or one of the antibiotics and this is being addressed by Dr. Castillo and he is also on Solu-Medrol. Vitals are stable. His breathing is easier. S1, S2 heard normally. Irregular rate and rhythm noted. Short systolic murmur noted. Lungs reveal improved air entry. Abdomen is soft. There is a rash all over the body, which is being addressed by Infectious Disease, Dr. Castillo. Lower extremities reveal that there are ulcers with some cellulitis, which is improving. Edema is better. Cardiac-webber, same medical regimen. I will see the patient as needed and upon discharge, he should have an appointment with Dr. Goodwin as an outpatient. MMGREGGL / MARTAN: [id number] /
[2018-03-05] MEDS: FUROSEMIDE 40 MG TAB PO SCH (16:19)
[2018-03-05] MEDS: diphenhydrAMINE 25 MG CAP PO PRN (17:12)
--- NOTE | 2018-03-05 20:01 | PN ---
PROGRESS NOTE Patient is seen for followup for acute kidney injury, mainly cardiorenal. Diuretics have been changed to p.o. Serum creatinine has been slightly elevated over the last couple of days secondary to recent initiation of angiotensin-receptor blockers. The dose of Cozaar was decreased yesterday. Patient's blood pressure remains on the lower side. He denies any significant complaints. Patient continues to have good urine output. Urine output for 24 hours was about 3.6 L. On examination this morning, blood pressure was 127/66, heart rate of 58 per minute. Patient is afebrile. EXAMINATION OF THE HEART: S1, S2. EXAMINATION OF LUNGS: Bilateral breath sounds are heard. ABDOMEN: Soft, non-tender. Examination of lower extremities shows chronic edema, chronic skin changes. There is rash noted on the back. PVC MONITOR exam is grossly intact. Labs show sodium 139, potassium 4.3, chloride 98, BUN 39, serum creatinine 1.7, hemoglobin 15.2 g/dL. ASSESSMENT: 1. Acute kidney injury, initially prerenal, improved with IV fluids, then mainly cardiorenal. Renal function had improved significantly with creatinine down to about 1.13. However, over the past couple of days serum creatinine increased. Diuretics have been decreased. Patient was also started on Cozaar, the dose of which was decreased yesterday. I will continue with the lower dose, but we will hold dose tomorrow morning. 2. Chronic kidney disease secondary to nephrosclerosis, NKF stage III. 3. Severe cardiomyopathy, ejection fraction about 25%. 4. Congestive heart failure, acute on top of chronic, mainly systolic. 5. Rash on the back, most likely allergic. Patient is maintained on steroids. It appears to have improved. PLAN: Agree with discontinuation of vancomycin. I will hold off on the Cozaar for tomorrow. May continue with current dose of diuretics. MMODL / IJN: [id number] /
[2018-03-05] MEDS: ATORVASTATIN 20 MG TAB PO SCH (22:23)
--- NOTE | 2018-03-05 22:40 | PN ---
PROGRESS NOTE DATE OF SERVICE: 03/05/2018. REASON FOR FOLLOWUP: 1. Left leg cellulitis. 2. Drug rash. INTERVAL HISTORY: The patient is afebrile. He is complaining of extensive rash and itching, but no worse than yesterday. No difficulty breathing or tongue swelling. The left leg swelling and redness slightly decreased. No significant drainage. Denies having any abdominal pain. No diarrhea. PHYSICAL EXAMINATION: On examination, the blood pressure 124/74 with a pulse of 62, temperature 97.8. He is 93% on room air. General description is a middle-aged male lying in bed in no distress. Respiratory system: Unlabored breathing with decreased breath sounds in the base. No wheeze. Heart S1, S2. Regular rate and rhythm. Abdomen soft. Left leg swelling slightly decreased. Skin examination: Rash, mild decreased intensity. LABS: Hemoglobin 15.2 with white count 1.6, BUN of 39, creatinine 1.1. DIAGNOSTIC IMPRESSION AND PLAN: 1. Patient with extensive left lower extremity cellulitis. Antibiotics in the form of cefazolin loss of his IV and inability of getting another IV, he will be getting a mid line. 2. Extensive rash, Solu Medrol for another 24 hours along with the . 3. Continue supportive care condition. MMODL / IJN: [id number] /
[2018-03-06] MEDS: methylPREDNISolone SOD SUCCI 125 MG/2 ML VIAL IV SCH ×5 (00:39→22:44)
[2018-03-06] MEDS: ceFAZolin IN SWFI 2 GM/20 ML SYRINGE IVP SCH ×4 (00:39→22:45)
[2018-03-06] MEDS: LEVOTHYROXINE 50 MCG TAB PO SCH (07:11)
[2018-03-06 07:24] LABS: INR 1.6 (<1.2)
[2018-03-06] MEDS ORDERED: METOLAZONE 2.5 MG TAB PO SCH (09:00)
[2018-03-06] MEDS: diphenhydrAMINE 25 MG CAP PO PRN (09:05)
[2018-03-06] MEDS: CHOLECALCIFEROL 1,000 UNIT TAB PO SCH (09:05)
[2018-03-06] MEDS: FUROSEMIDE 80 MG TAB PO SCH (09:06)
[2018-03-06] MEDS: AMIODARONE 100 MG TAB PO SCH (09:06)
[2018-03-06] MEDS: ASPIRIN 81 MG PO SCH (09:06)
[2018-03-06] MEDS: POTASSIUM CHLORIDE ER 20 MEQ TAB.ER PO SCH (09:06)
[2018-03-06] MEDS: SPIRONOLACTONE 25 MG TAB PO SCH (09:06)
[2018-03-06] MEDS: ALLOPURINOL 300 MG TAB PO SCH (09:06)
[2018-03-06] MEDS: METOPROLOL TARTRATE 50 MG TAB PO SCH (09:06)
[2018-03-06 10:19] VITALS: BMI 50.3
[2018-03-06] MEDS ORDERED: WARFARIN 10 MG TAB PO ONE (10:38)
[2018-03-06 10:56] LABS: Calcium 8.7 mg/dL (8.4-10.2); Potassium 3.1 mmol/L (3.5-5.1)
[2018-03-06] MEDS: FUROSEMIDE 40 MG TAB PO SCH (17:12)
--- NOTE | 2018-03-06 17:59 | PN ---
PROGRESS NOTE DATE OF SERVICE: 03/06/2018. REASON FOR FOLLOWUP: 1. Left leg cellulitis. 2. Drug rash. INTERVAL HISTORY: The patient is afebrile. He is breathing slightly comfortably. The patient's rash is slightly decreased in intensity. He denies any difficulty breathing or any tongue swelling. Left leg redness persists with slight decreased intensity. No open wound drainage. EXAMINATION: Blood pressure 133/79, pulse of 83, temperature 98. He is 94% on room air. General description is a middle-aged male lying in bed in no distress. Respiratory system: Unlabored breathing. Clear to auscultation anteriorly. Heart S1, S2. Regular rate and rhythm. Abdomen soft, no tenderness. Skin examination shows generalized maculopapular rash. Slight decreased intensity. . Left leg swelling with slight decrease. LAB: BUN of 47, creatinine 1.84. DIAGNOSTIC IMPRESSION AND PLAN: 1. Patient with extensive left lower extremity cellulitis. The patient at this time to to continue with the cefazolin 2 g with plan to finish therapy with oral Keflex, the patient continue local care to continue with Hermes wrap to keep the swelling down. 2. The patient with extensive rash. Solu-Medrol can be transitioned to some oral prednisone. Continue Benadryl and continue supportive care. MMODL / IJN: [id number] /
--- NOTE | 2018-03-06 21:27 | PN ---
PROGRESS NOTE HISTORY: Mr. López is a gentleman who has developed a rash all over yesterday with some antibiotics and this rash persists but looks less angry. His vital signs are stable. He has a cardiomyopathy and atrial fibrillation. I am resuming his Coumadin. PHYSICAL EXAMINATION: S1 and S2 heard normally. Irregular rhythm noted. Short systolic murmur noted. Lungs are clear. Abdomen and lower extremity exams are unchanged. Rash is better. PLAN: I will discontinue metolazone, resume warfarin, keep an eye on PT/INR and see how he does. I explained to the patient that after discharge, he will need to follow up with Dr. Goodwin for possible cardiac cath as an outpatient. MMODL / IJN: [id number] /
--- NOTE | 2018-03-06 21:35 | PN ---
PROGRESS NOTE HISTORY: Patient is seen for followup for acute kidney injury. The patient was recently diuresed. He was also given IV fluids about a week ago, following which his kidney function improved significantly. Currently, he is maintained on Lasix which has been switched to p.o. Serum creatinine has been slowly rising. The Cozaar is on hold. Blood pressure has been staying on the lower side. I will decrease the Lasix further. The patient, however, states he feels well. He has had good urine output with 24-hour output documented at 3.6 L. PHYSICAL EXAMINATION: This morning, blood pressure was 113/72, heart rate of 63 per minute. Patient is afebrile. Examination of the heart S1, S2. Examination lungs bilateral breath sounds are heard. Abdomen is soft, nontender. Exam of lower extremities shows chronic skin changes, chronic edema bilaterally. The rash on the back appears to be slightly improved. LAB: Sodium of 139, potassium 3.1, chloride 95, CO2 is 34, BUN 47, serum creatinine 1.84. ASSESSMENT: 1. Acute kidney injury, cardiorenal and mainly prerenal initially, which improved with IV hydration. Lately, the serum creatinine has been rising again. The Cozaar has been held. Blood pressure was running low and the Lasix has been switched to p.o. I will hold off on the Lasix as well for tomorrow. Continue to avoid nephrotoxic agents. The patient is not on any other antihypertensive medications. 2. Cardiomyopathy with ejection fraction of about 25%. 3. Congestive heart failure, systolic, acute on top of chronic. 4. Hypokalemia secondary to diuretics. 5. Rash, maculopapular rash, possibly allergic, currently maintained on IV Solu- Medrol. PLAN: Hold off on Lasix for tomorrow. Continue off of Cozaar. Repeat labs in a.m. MMODL / IJN: [id number] /
[2018-03-06] MEDS: ATORVASTATIN 20 MG TAB PO SCH (22:45)
--- NOTE | 2018-03-07 03:11 | P.PN ---
Subjective Progress Note Date: 03/05/18 Principal diagnosis: CHF exacerbation and left lower cellulitis and rash possibly drug-induced CHF exacerbation and left lower extremity cellulitis Mr. López is a 62-year-old male with a past medical history of congestive heart failure, L chronic lower extremity venous insufficiency admitted to the hospital with a chief complaint of increased bilateral lower extremity swelling and difficulty in breathing. He is currently being treated for CHF exacerbation. Initially the patient was on IV Lasix drip and dopamine drip and eventually went into renal failure for which she was given IV fluids. Now the patient's renal status is slowly improving and he is back on IV Lasix. On 03/04/2018 - No overnight active issues reported by nursing staff. In regards to his left lower extremity swelling patient reports that his pain is under much better control. 05/06/2017 Patient is still having left lower extremity redness and developed rash. Patient was started on methylprednisolone. ID and cardiology is following. Otherwise breathing status is much improved. Patient is being continued on anticoagulation, of warfarin. On review of systems Constitutional-denies having fevers chills or rigors Cardiovascular-no chest pain or palpitations Respiratory-difficulty in breathing improved, cough with sputum that is brownish yellow in color GI -no abdominal pain nausea vomiting or diarrhea -no dysuria or hematuria Objective - Vital Signs Vital signs: Vital Signs Temp 97.8 F 03/05/18 16:00 Pulse 62 03/05/18 16:00 Resp 16 03/05/18 16:00 BP 124/74 03/05/18 16:00 Pulse Ox 93 L 03/05/18 16:00 Intake & Output 03/05/18 03/05/18 03/06/18 06:59 18:59 06:59 Intake Total 240 Output Total 2850 1150 300 Balance -2850 -910 -300 Weight 156.2 kg Intake: Oral 240 Output: Urine 2100 400 300 Stool 750 750 Other: Voiding Method Urinal Urinal # Voids 4 1 - Exam GEN. APPEARANCE: alert, in no apparent distress HEAD EXAM: atraumatic, normocephalic, normal inspection EYE EXAM: normal appearance, PERRL, EOMI. Absent: scleral icterus, conjunctival injection, periorbital swelling ENT EXAM: normal exam, mucous membranes moist NECK EXAM: No JVD. No lymphadenopathy RESPIRATORY EXAM: Diminished bilateral breath sounds that are distant. CARDIOVASCULAR EXAM: Heart sounds muffled. Irregularly irregular rhythm GI/ABDOMINAL EXAM: soft, normal bowel sounds. No tenderness or distention. Difficult to appreciate organomegaly due to huge body habitus. EXTREMITIES EXAM: Left lower extremity with extensive bullae, few of them popped open with serous discharge. The redness is up to his mid thigh region. Appears to be worse compared to yesterday. NEUROLOGICAL EXAM: alert, oriented X3, no focal neurological deficits PSYCHIATRIC EXAM: normal affect, normal mood SKIN EXAM: Diffuse rash that has been present for the past couple of days mostly on the left lower extremity and left upper extremity and also on the left side of the chest. Patient states that he mostly sleeps on his left side due to chronic low back pain and obesity. - Labs CBC & Chem 7: 03/05/18 07:03 03/06/18 06:45 Labs: Abnormal Lab Results - Last 24 Hours (Table) 03/05/18 03/05/18 Range/Units 07:03 07:03 WBC 21.6 H (3.8-10.6) k/uL Neutrophils # 19.5 H (1.3-7.7) k/uL Lymphocytes # 0.6 L (1.0-4.8) k/uL Monocytes # 1.3 H (0-1.0) k/uL BUN 39 H (9-20) mg/dL Creatinine 1.71 H (0.66-1.25) mg/dL Glucose 134 H (74-99) mg/dL Assessment and Plan Assessment: Acute on chronic congestive heart failure exacerbation Acute Systolic heart failure EF of 20% Maculopapular rash on the left side of the body - most likely due to drug ALLERGIES Left lower extremity cellulitis Bilateral lower extremity venous insufficiency Chronic venous stasis dermatitis Bilateral onychomycosis Essential hypertension Hyperlipidemia Hypothyroidism Morbid obesity with BMI of 52.1 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 Currently on spironolactone.. He is currently on levofloxacin for his acute bronchitis- completed 7 days, so it's been discontinued on 03/03/12. As the patient's left lower extremity cellulitis was not responding to clindamycin, his antibiotic is being changed to vancomycin. Dr. Jonathan has been consulted . Patient was started on cefazolin. Also started on IV Solu-Medrol for rash. Patient had mild swelling of his left upper extremity for which a Doppler was obtained and was negative for DVT. We'll continue the patient on current medication regimen. Further recommendations to follow depending progress of the patient. Overall prognosis is guarded. Time with Patient: Greater than 30
--- NOTE | 2018-03-07 03:12 | P.PN ---
Subjective Progress Note Date: 03/06/18 Principal diagnosis: CHF exacerbation and left lower cellulitis and rash possibly drug-induced CHF exacerbation and left lower extremity cellulitis Mr. López is a 62-year-old male with a past medical history of congestive heart failure, L chronic lower extremity venous insufficiency admitted to the hospital with a chief complaint of increased bilateral lower extremity swelling and difficulty in breathing. He is currently being treated for CHF exacerbation. Initially the patient was on IV Lasix drip and dopamine drip and eventually went into renal failure for which she was given IV fluids. Now the patient's renal status is slowly improving and he is back on IV Lasix. On 03/04/2018 - No overnight active issues reported by nursing staff. In regards to his left lower extremity swelling patient reports that his pain is under much better control. 05/06/2017 Patient is still having left lower extremity redness and developed rash. Patient was started on methylprednisolone. ID and cardiology is following. Otherwise breathing status is much improved. Patient is being continued on anticoagulation, of warfarin. 03/06/2018 Patient denied any complains of chest pain or worsening shortness of breath. Her rash on the back is improving. He having significant edema and rash on the left lower extremities. Patient is being continued on IV Solu-Medrol. Antibiotics in the form of cefazolin. ID and cardiology is following. Heart rate is controlled. Patient is currently on warfarin. Creatinine level increased to 1.84 today. No fever no chills. No other acute overnight issues. On review of systems Constitutional-denies having fevers chills or rigors Cardiovascular-no chest pain or palpitations Respiratory-difficulty in breathing improved, cough with sputum that is brownish yellow in color GI -no abdominal pain nausea vomiting or diarrhea -no dysuria or hematuria Objective - Vital Signs Vital signs: Vital Signs Temp 98.3 F 03/06/18 20:00 Pulse 72 03/06/18 20:00 Resp 18 03/06/18 20:00 BP 118/72 03/06/18 20:00 Pulse Ox 92 L 03/06/18 20:00 Intake & Output 03/06/18 03/06/18 03/07/18 06:59 18:59 06:59 Intake Total 740 Output Total 4268 103 4639 Balance -1450 490 -1300 Weight 154.6 kg 154.6 kg 154.6 kg Intake: Oral 740 Output: Urine 700 800 Stool 750 250 500 Other: Voiding Method Urinal Urinal Urinal # Voids 1 - Exam GEN. APPEARANCE: alert, in no apparent distress HEAD EXAM: atraumatic, normocephalic, normal inspection EYE EXAM: normal appearance, PERRL, EOMI. Absent: scleral icterus, conjunctival injection, periorbital swelling ENT EXAM: normal exam, mucous membranes moist NECK EXAM: No JVD. No lymphadenopathy RESPIRATORY EXAM: Diminished bilateral breath sounds that are distant. CARDIOVASCULAR EXAM: Heart sounds muffled. Irregularly irregular rhythm GI/ABDOMINAL EXAM: soft, normal bowel sounds. No tenderness or distention. Difficult to appreciate organomegaly due to huge body habitus. EXTREMITIES EXAM: Left lower extremity with extensive bullae, few of them popped open with serous discharge. The redness is up to his mid thigh region. Appears to be worse compared to yesterday. NEUROLOGICAL EXAM: alert, oriented X3, no focal neurological deficits PSYCHIATRIC EXAM: normal affect, normal mood SKIN EXAM: Diffuse rash that has been present for the past couple of days mostly on the left lower extremity and left upper extremity and also on the left side of the chest. Patient states that he mostly sleeps on his left side due to chronic low back pain and obesity. - Labs CBC & Chem 7: 03/05/18 07:03 03/06/18 06:45 Labs: Abnormal Lab Results - Last 24 Hours (Table) 03/06/18 03/06/18 Range/Units 06:45 06:45 PT 16.0 H (9.0-12.0) sec INR 1.6 H (<1.2) Potassium 3.1 L (3.5-5.1) mmol/L Chloride 95 L (98-107) mmol/L Carbon Dioxide 34 H (22-30) mmol/L BUN 47 H (9-20) mg/dL Creatinine 1.84 H (0.66-1.25) mg/dL Glucose 162 H (74-99) mg/dL Assessment and Plan Assessment: Acute on chronic congestive heart failure exacerbation Acute Systolic heart failure EF of 20% Maculopapular rash on the left side of the body - most likely due to drug ALLERGIES Left lower extremity cellulitis Bilateral lower extremity venous insufficiency Chronic venous stasis dermatitis Bilateral onychomycosis Essential hypertension Hyperlipidemia Hypothyroidism Morbid obesity with BMI of 52.1 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 Currently on spironolactone.. He is currently on levofloxacin for his acute bronchitis- completed 7 days, so it's been discontinued on 03/03/12. As the patient's left lower extremity cellulitis was not responding to clindamycin, his antibiotic is being changed to vancomycin. Dr. Castillo has been consulted . Patient was started on cefazolin. Also started on IV Solu-Medrol for rash. Patient had mild swelling of his left upper extremity for which a Doppler was obtained and was negative for DVT. We'll continue the patient on current medication regimen. Further recommendations to follow depending progress of the patient. Overall prognosis is guarded. Time with Patient: Greater than 30
[2018-03-07 06:42] LABS: Basophils % (A) 0 %; Eosinophils % (A) 0 %; HCT 44.9 % (39.0-53.0); HGB 14.4 gm/dL (13.0-17.5); Lymphocytes # (A) 0.9 k/uL (1.0-4.8); Lymphocytes % (A) 4 %; MCHC 32.1 g/dL (31.0-37.0); MCV 87.4 fL (80.0-100.0); Mean Platelet Volume 11.6; Monocytes # (A) 0.9 k/uL (0-1.0); Monocytes % (A) 4 %; Neutrophils # (A) 17.9 k/uL (1.3-7.7); Neutrophils % (A) 90 %; Platelet Count 166 k/uL (150-450); RBC 5.14 m/uL (4.30-5.90); RDW 15.2 % (11.5-15.5); WBC 19.9 k/uL (3.8-10.6)
[2018-03-07] MEDS: methylPREDNISolone SOD SUCCI 125 MG/2 ML VIAL IV SCH (06:45)
[2018-03-07] MEDS: LEVOTHYROXINE 50 MCG TAB PO SCH (06:46)
[2018-03-07 06:53] LABS: Albumin 3.4 g/dL (3.5-5.0); Calcium 8.9 mg/dL (8.4-10.2); Potassium 2.9 mmol/L (3.5-5.1); Total Bilirubin 0.7 mg/dL (0.2-1.3); Total Protein 6.7 g/dL (6.3-8.2)
[2018-03-07] MEDS: ASPIRIN 81 MG PO SCH (08:31)
[2018-03-07] MEDS: ceFAZolin IN SWFI 2 GM/20 ML SYRINGE IVP SCH ×3 (08:31→23:51)
[2018-03-07] MEDS: ALLOPURINOL 300 MG TAB PO SCH (08:31)
[2018-03-07] MEDS: SPIRONOLACTONE 25 MG TAB PO SCH (08:32)
[2018-03-07] MEDS: CHOLECALCIFEROL 1,000 UNIT TAB PO SCH (08:32)
[2018-03-07] MEDS: METOPROLOL TARTRATE 50 MG TAB PO SCH (08:32)
[2018-03-07] MEDS: POTASSIUM CHLORIDE ER 20 MEQ TAB.ER PO SCH ×6 (08:32→18:01)
[2018-03-07] MEDS: diphenhydrAMINE 25 MG CAP PO PRN (08:32)
[2018-03-07] MEDS: AMIODARONE 100 MG TAB PO SCH (08:32)
[2018-03-07] MEDS ORDERED: ceFAZolin IN SWFI 2 GM/20 ML SYRINGE IVP SCH (13:30)
[2018-03-07 17:42] LABS: INR 1.7 (<1.2); Prothrombin Time 16.9 sec (9.0-12.0)
[2018-03-07] MEDS ORDERED: WARFARIN 5 MG TAB PO SCH (18:00)
--- NOTE | 2018-03-07 18:51 | PN ---
PROGRESS NOTE Mr. López is a patient with a probable nonischemic cardiomyopathy, atrial fibrillation, rate control is good. His cellulitis in his legs is getting better. He is also breathing easier today. His rash has improved. Vitals are stable. I switched him to oral Lasix. He has lost quite a bit of weight. Vitals are stable. JVD is 1 cm. No carotid bruit. S1-S2 heard normally. Regular rhythm noted. Rate is controlled. Short systolic murmur noted. Lungs are clear. Abdomen is soft. Lower extremity edema has improved and cellulitis is getting better. Plan is to continue current medications. INR is 1.6. We will give him additional Coumadin. Check PT/INR in the morning and possible discharge in the next 24-48 hours. MMODL / IJN: [id number] /
[2018-03-07] MEDS: ATORVASTATIN 20 MG TAB PO SCH (21:18)
--- NOTE | 2018-03-07 22:54 | PN ---
PROGRESS NOTE DATE OF SERVICE: 03/07/2018. REASON FOR FOLLOW UP: 1. Extensive drug rash. 2. Left leg cellulitis. INTERVAL HISTORY: The patient is currently afebrile, has been breathing comfortably. The left leg has a rash. Left leg swelling and redness has decreased in intensity. The patient overall generalized maculopapular rash decreased in intensity, less itching now. No new rash or any . Denies having any chest pain. No abdominal pain and no diarrhea. PHYSICAL EXAMINATION: His vital signs stable with T-max of 98. General description is a middle-aged male lying in bed in no distress. Respiratory system unlabored breathing. Decreased breath sounds in the bases. No wheeze. Heart S1, S2. Regular rate and rhythm. ABDOMEN: Soft. No tenderness. Left leg swelling and redness. Minimally decreased wound, no drainage. Skin examination generalized maculopapular rash and decreased intensity of the rash. LABS: Reviewed. DIAGNOSTIC IMPRESSION AND PLAN: 1. Patient with acute left lower extremity cellulitis likely streptococcal disease, did not respond clindamycin, however, seemed to do well on the IV cefazolin was changed to q6 hours with plan to finish therapy with oral Keflex. 2. Patient with extensive more likely secondary to pneumonia versus Silvadene cream, both of them has been discontinued. The patient at this time, Solu-Medrol will be switched to oral prednisone along with plan for a short course. Continue supportive care. MMODL / IJN: [id number] /
--- NOTE | 2018-03-08 02:21 | PN ---
PROGRESS NOTE HISTORY: The patient is seen for followup for acute kidney injury. Currently diuretics are on hold and angiotensin receptors are on hold as well. Renal function has improved today. The patient continues to have good urine output. PHYSICAL EXAMINATION: This afternoon, blood pressure was 133/86, heart rate 65 per minute. Patient is afebrile. Examination of the heart S1, S2. Examination of lungs, bilateral breath sounds are heard. Abdomen is soft, nontender. Examination of lower extremities shows chronic skin changes, chronic edema bilaterally. There is a maculopapular rash noted on the back. LABS: Sodium 137, potassium 2.9, chloride of 91, BUN 57, serum creatinine 1.6. ASSESSMENT: 1. Acute kidney injury, initially prerenal, which improved with IV hydration. The patient also has acute kidney injury associated with recent diuresis and initiation of angiotensin receptor blockers. Blood pressure had been running on the lower side. Cozaar is currently on hold and diuretics were also held yesterday. The patient continues with good urine output. We can likely resume oral loop diuretics tomorrow. 2. Hypokalemia associated with diuresis, will be replaced. Repeat magnesium level as well. 3. Severe cardiomyopathy ejection fraction about 25%. 4. Maculopapular rash, possibly allergic, maintained on steroids. PLAN: Resume low-dose loop diuretics in a.m. depending on the renal profile. Replace potassium. Repeat labs in a.m. Patient will need followup as outpatient. MMODL / IJN: [id number] /
[2018-03-08] MEDS: ceFAZolin IN SWFI 2 GM/20 ML SYRINGE IVP SCH ×3 (06:53→17:46)
[2018-03-08] MEDS: LEVOTHYROXINE 50 MCG TAB PO SCH (06:53)
[2018-03-08 07:05] LABS: INR 1.6 (<1.2); Prothrombin Time 16.3 sec (9.0-12.0)
[2018-03-08 07:11] LABS: Calcium 8.7 mg/dL (8.4-10.2); Magnesium 2.2 mg/dL (1.6-2.3); Potassium 3.3 mmol/L (3.5-5.1)
[2018-03-08 07:34] LABS: Basophils # (A) 0.1 k/uL (0-0.2); Basophils % (A) 0 %; Eosinophils # (A) 0.1 k/uL (0-0.7); Eosinophils % (A) 0 %; HCT 43.1 % (39.0-53.0); HGB 13.7 gm/dL (13.0-17.5); Lymphocytes # (A) 0.8 k/uL (1.0-4.8); Lymphocytes % (A) 5 %; MCH 27.6 pg (25.0-35.0); MCHC 31.8 g/dL (31.0-37.0); MCV 86.7 fL (80.0-100.0); Monocytes # (A) 0.9 k/uL (0-1.0); Monocytes % (A) 6 %; Neutrophils # (A) 14.5 k/uL (1.3-7.7); Neutrophils % (A) 88 %; Platelet Count 159 k/uL (150-450); RBC 4.97 m/uL (4.30-5.90); RDW 15.2 % (11.5-15.5); WBC 16.4 k/uL (3.8-10.6)
[2018-03-08 08:53] LABS: Large Platelets Present
[2018-03-08] MEDS ORDERED: SPIRONOLACTONE 25 MG TAB PO SCH (09:00)
[2018-03-08] MEDS ORDERED: predniSONE 20 MG TAB PO SCH (09:00)
[2018-03-08] MEDS ORDERED: FUROSEMIDE 40 MG TAB PO SCH ×2 (09:00→16:00)
[2018-03-08] MEDS: METOPROLOL TARTRATE 50 MG TAB PO SCH (09:39)
[2018-03-08] MEDS: CHOLECALCIFEROL 1,000 UNIT TAB PO SCH (09:39)
[2018-03-08] MEDS: ASPIRIN 81 MG PO SCH (09:39)
[2018-03-08] MEDS: ALLOPURINOL 300 MG TAB PO SCH (09:39)
[2018-03-08] MEDS: AMIODARONE 100 MG TAB PO SCH (09:40)
[2018-03-08] MEDS ORDERED: POTASSIUM CHLORIDE ER 20 MEQ TAB.ER PO STA (10:18)
[2018-03-08 11:15] VITALS: RESP 16
--- NOTE | 2018-03-08 12:04 | PN ---
PROGRESS NOTE Patient is seen for followup for acute kidney injury, which is mainly cardiorenal, as well as prerenal. Patient was maintained on diuretics. They were subsequently held as renal function had worsened. This morning, patient is being discharged. He states he is feeling well. He has had good urine output with significant improvement in his lower extremity edema. PHYSICAL EXAMINATION: This morning, blood pressure is 118/68, heart rate 68 per minute. He is afebrile. Examination of the heart, S1, S2. Examination of the lungs, bilateral breath sounds are heard. Abdomen is soft, morbidly obese. Examination of the lower extremities shows much decreased edema right lower extremity. Left lower extremity is edematous and currently wrapped. Maculopapular rash is improved, mainly on the back. [employer] exam is grossly intact. LABS: Show sodium 136, potassium 3.3, BUN 62, serum creatinine 1.4, hemoglobin 13.7 g/dL. ASSESSMENT: 1. Acute kidney injury, prerenal, currently improved. I will hold off on the Cozaar for now as blood pressure had been running low and patient's renal function had worsened significantly. We can resume the oral diuretics and patient will need labs to be done as outpatient and follow up in the office in about 1 week's time. 2. Severe cardiomyopathy, ejection fraction of about 25%. 3. Left lower extremity cellulitis and wound being followed by ID. 4. Maculopapular rash, mostly allergic, status post steroids, currently improved. 5. Hypokalemia secondary to diuresis, status post replacement. PLAN: Patient is stable for discharge. Maintain Lasix 40 b.i.d. for about 2 days and then once a day. Continue with spironolactone. Repeat labs in 2-3 days. Follow up as outpatient in one week's time. MMODL / IJN: [id number] /
--- NOTE | 2018-03-08 14:46 | PN ---
PROGRESS NOTE DATE OF SERVICE: 03/08/2018 REASON FOR FOLLOW UP: 1. Drug rash. 2. Left leg cellulitis. INTERVAL HISTORY: The patient is currently afebrile. He is breathing comfortably. Patient denies having any chest pain or shortness of breath or cough. No abdominal pain. No diarrhea. PHYSICAL EXAMINATION: Blood pressure is 118/60 with a pulse of 60, temperature 96.9, he is 95% on room air. General description is a middle aged male, up in the bed in no distress. RESPIRATORY SYSTEM: Unlabored breathing, decreased breath sounds at the base, no wheeze. HEART: S1, S2. Regular rate and rhythm. ABDOMEN: Soft, no tenderness. Left leg swelling and redness has improved. SKIN EXAMINATION: Rash with decreased intensity. LABS: Hemoglobin is 38, white count of 16.4, BUN of 16, creatinine 1.40. DIAGNOSTIC IMPRESSION AND PLAN: 1. Patient with acute left leg cellulitis, likely streptococcal disease. The patient seemed to have shown overall clinical improvement on cefazolin that will be transitioned to oral Keflex for another week to 10 days. 2. Patient with drug rash/may benefit from a different course of treatment along with Benadryl and close outpatient followup. Prescription was sent to his pharmacy. Continue supportive care. MMODL / IJN: [id number] /
--- NOTE | 2018-03-08 15:40 | PN ---
PROGRESS NOTE Mr. López is a gentleman with cardiomyopathy, atrial fibrillation, controlled rate; also has cellulitis and infection on his legs which is being addressed by infectious disease specialist. He is actually doing better today. I will resume his Lasix orally. His anticoagulation has been resumed, but PT/INR is still suboptimal. Renal function has improved. He is breathing well. He has lost substantial weight. Vital signs are stable. There is JVD of 1 cm. No carotid bruit. S1-S2 heard normally. Irregular rhythm noted. Short systolic murmur noted. Lungs reveal improved air entry. Lower extremity edema has improved. Cellulitis is also looking less inflammatory and his rash is also improved. He can be discharged whenever it is okay from infectious disease and nephrology standpoints. I would recommend that he should see Dr. Goodwin the next 1-2 weeks. MMGREGGL / MARTAN: [id number] /
[2018-03-08 16:29] VITALS: BP 128/76; PULSE 64; TEMP 98.2
[2018-03-08] MEDS ORDERED: WARFARIN 7.5 MG TAB PO ONE (18:00)
--- NOTE | 2018-03-09 01:12 | PN ---
PROGRESS NOTE DATE OF SERVICE: March 07, 2018. PRESENTING COMPLAINT: Tired. INTERVAL HISTORY: Patient was seen by me on March 07, 2018. Admitted with CHF exacerbation. Also had acute renal failure. Breathing is getting better. Fluids and Lasix will be adjusted accordingly. The patient is walking better. Also being treated for cellulitis of lower extremity and atrial fibrillation. REVIEW OF SYSTEMS: Done for constitutional, cardiovascular, GI, pulmonary; relevant findings as above. CURRENT MEDICATIONS: Current medications reviewed. Diuretics will be resumed by Nephrology. Current medications reviewed. PHYSICAL EXAMINATION: VITAL SIGNS: Temperature 97.7, pulse 55, respirations 16, blood pressure 133/86, pulse ox 93 percent on room air. GENERAL APPEARANCE: Sitting up. More comfortable. EYES: Pupils equal. Conjunctivae normal. NECK JVD unable to assess. Mass not palpable. RESPIRATORY: Effort increased. LUNGS: Decreased breath sounds. CARDIOVASCULAR: Heart sounds muffled, decreased edema. ABDOMEN: Distended, soft. Liver and spleen not palpable. PSYCHIATRY: Alert and oriented x3. Mood and affect is normal. INVESTIGATIONS: White count 9.9, potassium 2.9, BUN 57, creatinine 1.60. INR 1.7. ASSESSMENT: 1. Acute on chronic congestive heart failure exacerbation from systolic dysfunction, ejection fraction 20%. Doing better. 2. Bilateral lower extremity venous insufficiency, more pronounced left lower extremity. 3. Chronic venous stasis, dermatitis with acute cellulitis. 4. Bilateral onychomycosis, status post nail clipping by Dr. Murrieta. 5. Essential hypertension. 6. Hyperlipidemia. 7. Hypothyroid. 8. Morbid obesity BMI 51.7. 9. Lactic acidosis type 2. 10.Chronic kidney disease stage 3 from nephrosclerosis. 11.Acute renal failure, combination of cardiorenal prerenal with improvement. 12.Acute bronchitis. PLAN: Continue current medication and treatment plan. Patient will be resumed on oral diuretics per Nephrology looking at discharge planning. MMODL / IJN: [id number] /
--- NOTE | 2018-03-09 08:53 | DS ---
DISCHARGE SUMMARY DATE OF ADMISSION: 02/22/2018 DATE OF DISCHARGE: 03/08/2018 FINAL DIAGNOSES: 1. Acute on chronic congestive heart failure exacerbation from systolic dysfunction, ejection fraction 20%. 2. Bilateral lower extremity venous insufficiency. 3. Chronic venous stasis dermatitis with acute cellulitis, especially in the lower extremities. 4. Acute maculopapular rash could be allergy. 5. Bilateral onychomycosis status post nails being clipped by Dr. Murrieta. 6. Essential hypertension. 7. Hyperlipidemia. 8. Hypothyroid. 9. Morbid obesity BMI 51.7. 10.Lactic acidosis type 2. 11.Chronic kidney disease stage 3 from nephrosclerosis. 12.Acute renal failure, nonoliguric, combination of cardiorenal and prerenal with improvement. 13.Acute bronchitis. CONSULTATION: Dr. Castillo from Infectious Disease, Dr. Paz from Nephrology and Dr. Orly Butt from Cardiology. HOSPITAL COURSE: This very pleasant gentleman, morbidly obese, presented with CHF exacerbation also found to be in atrial fibrillation with rapid ventricular rate. Initially was on a Lasix drip. Then patient did go into renal failure. Creatinine did bump up to 3.29. By the time of discharge, did come down to 1.4. The patient also treated for blisters and cellulitis lower extremity. The cultures were negative from Gram stain and urine. Antibiotics were coordinated by Dr. Castillo, Infectious Disease. Overall doing better using a walker. Patient will be returning home. EXAMINATION: VITAL SIGNS: Temperature 98.2, pulse 64, respirations 16, blood pressure 120/76, pulse ox 93 percent on room air. Lungs distant breath sounds. CARDIOVASCULAR: Heart sounds irregular. Hermes wraps lower extremity. LABS: White count 16.4, hemoglobin 13.7, potassium 3.3, BUN 62, creatinine 1.40. Initially patient did get steroids for a maculopapular rash, felt to be possibly allergic. DISCHARGE MEDICATIONS: 1. Allopurinol 300 mg p.o. daily. 2. Lipitor 20 mg q.h.s. 3. Synthroid 50 mcg a day. 4. Potassium 20 mEq p.o. daily. 5. Lasix 40 mg p.o. daily. 6. Vitamin D3 2000 units p.o. daily. 7. Sodium bicarb 60 mg p.o. daily. 8. Cordarone 100 mg p.o. daily. 9. Aspirin 81 mg p.o. daily. 10.Keflex 500 mg q.8 30 capsules. 11.Lopressor 50 mg p.o. daily. 12.Aldactone 25 mg p.o. daily. 13.Coumadin 5 mg as directed. 14.Prednisone taper. 15.The patient will take Lasix 40 mg twice daily for 2 days, and then take daily. FOLLOWUP: Follow up with Dr. Hall's on March 11, 2018, Dr. Cuellar 04/06/2018, Dr. Donnelly on March 29, 2018, Dr. Castillo in 1 week, Dr. Aníbal Goodwin on March 15, 2018. Labs: BMP and INR on March 11, 2018. Copy to Dr. Hall. CARINE / MARTAN: [id number] /
[2018-03-11] MEDS ORDERED: FUROSEMIDE 40 MG TAB PO SCH (09:00)
== END 2018-03-08 18:25 | disposition home or self-care (01) | DRG 291 ==
LOC: EC 09:30 → 3SCARD 13:46
PROVIDERS: ADMIT Hospitalist; ATTEND Hospitalist
PROC: 3E0234Z Introduction of Serum, Toxoid and Vaccine into Muscle, Percutaneous Approach (ICD-10-PCS; principal; 2018-02-22)
PROC: 0HBRXZZ Excision of Toe Nail, External Approach (ICD-10-PCS; 2018-02-26)
PROC: 05HY33Z Insertion of Infusion Device into Upper Vein, Percutaneous Approach (ICD-10-PCS; 2018-03-05 14:30)
DX: I13.0 Hypertensive heart and chronic kidney disease with heart failure and stage 1 through stage 4 chronic kidney disease, or unspecified chronic kidney disease (principal); I50.23 Acute on chronic systolic (congestive) heart failure; E87.2 Acidosis; L02.416 Cutaneous abscess of left lower limb; L03.115 Cellulitis of right lower limb; L03.116 Cellulitis of left lower limb; M62.82 Rhabdomyolysis; N17.9 Acute kidney failure, unspecified; Z68.43 Body mass index [BMI] 50.0-59.9, adult; B35.1 Tinea unguium; E03.9 Hypothyroidism, unspecified; E66.01 Morbid (severe) obesity due to excess calories; E78.5 Hyperlipidemia, unspecified; E86.1 Hypovolemia; E87.5 Hyperkalemia; E87.6 Hypokalemia; T50.2X5A Adverse effect of carbonic-anhydrase inhibitors, benzothiadiazides and other diuretics, initial encounter; R74.8 Abnormal levels of other serum enzymes; I25.10 Atherosclerotic heart disease of native coronary artery without angina pectoris; I27.20 Pulmonary hypertension, unspecified; I42.9 Cardiomyopathy, unspecified; I44.7 Left bundle-branch block, unspecified; I48.2 Chronic atrial fibrillation; I73.9 Peripheral vascular disease, unspecified; I87.2 Venous insufficiency (chronic) (peripheral); I87.8 Other specified disorders of veins; J20.9 Acute bronchitis, unspecified; L27.0 Generalized skin eruption due to drugs and medicaments taken internally; N18.3 Chronic kidney disease, stage 3 (moderate); Z79.01 Long term (current) use of anticoagulants; Z79.52 Long term (current) use of systemic steroids; Z79.82 Long term (current) use of aspirin; Z79.890 Hormone replacement therapy; Z79.899 Other long term (current) drug therapy; Z80.9 Family history of malignant neoplasm, unspecified; Z82.3 Family history of stroke; Z91.19 Patient's noncompliance with other medical treatment and regimen; Z98.49 Cataract extraction status, unspecified eye; M10.9 Gout, unspecified; Z23 Encounter for immunization
CPT/HCPCS: 36415; 36569; 71045; 71046; 76770; 76937; 80048; 80053; 80061; 81001; 82550; 82553; 83605; 83735; 83880; 84484; 85025; 85379; 85610; 85730; 87040; 87070; 87086; 87205; 87502; 93005; 93306; 94640; 94760; 96365; 96366; 96367; 96375; 96376; 99285

== ENCOUNTER 2019-01-21 11:05 | Inpatient (IN) | payer BC, OTHER ==
[2019-01-21] MEDS ORDERED: ASPIRIN 81 MG PO STA (11:23)
--- NOTE | 2019-01-21 11:33 | ED ---
General Adult HPI - General Chief complaint: Shortness of Breath Stated complaint: Sob Time Seen by Provider: 01/21/19 11:18 Source: patient, EMS Mode of arrival: EMS Limitations: physical limitation - History of Present Illness Initial comments: Patient is a pleasant 63-year-old male presenting to the emergency department with difficulty in breathing. Onset of symptoms was several weeks ago however worse with the past few days. Patient does admit to having leg swelling. Patient admits to not taking care of his feet. No chest pain. No cough. No fever. Patient does have history of similar symptoms previously associated with CHF. - Related Data Home Medications Medication Instructions Recorded Confirmed Allopurinol [Zyloprim] 300 mg PO DAILY 04/17/17 01/21/19 Atorvastatin [Lipitor] 20 mg PO HS 04/17/17 01/21/19 Potassium Chloride ER [K-Dur 20] 20 meq PO DAILY 04/17/17 01/21/19 Levothyroxine Sodium [Synthroid] 25 mcg PO SUMOWEFRSA 01/21/19 01/21/19 Metoprolol Tartrate [Lopressor] 50 mg PO BID 01/21/19 01/21/19 Warfarin [Coumadin] 5 mg PO TH 01/21/19 01/21/19 Warfarin [Coumadin] 7.5 mg PO TUSA 01/21/19 01/21/19 Previous Rx's Medication Instructions Recorded Furosemide [Lasix] 40 mg PO DAILY #0 04/20/17 Aspirin 81 mg PO DAILY chew 03/08/18 Spironolactone [Aldactone] 25 mg PO DAILY #30 tab 03/08/18 Allergies Allergy/AdvReac Type Severity Reaction Status Date / Time No Known Allergies Allergy Verified 01/21/19 11:26 Review of Systems ROS Statement: Those systems with pertinent positive or pertinent negative responses have been documented in the HPI. ROS Other: All systems not noted in ROS Statement are negative. Constitutional: Denies: fever Eyes: Denies: eye pain ENT: Denies: ear pain Respiratory: Reports: dyspnea Cardiovascular: Reports: edema. Denies: chest pain Endocrine: Denies: fatigue Gastrointestinal: Denies: abdominal pain Genitourinary: Denies: dysuria Musculoskeletal: Denies: back pain Skin: Denies: lesions Neurological: Denies: weakness Past Medical History Past Medical History: Coronary Artery Disease (CAD), Heart Failure, Hyperlipidemia, Hypertension, Thyroid Disorder Additional Past Medical History / Comment(s): 02/22/18 PT WANTS PNE VACCINE. OTHER PMH:gout, 04-17-17 admitted with ARF AND ELEVATED POTASSIUM LEVEL History of Any Multi-Drug Resistant Organisms: None Reported Past Surgical History: Adenoidectomy, Tonsillectomy Additional Past Surgical History / Comment(s): cataracts Past Anesthesia/Blood Transfusion Reactions: No Reported Reaction Past Psychological History: No Psychological Hx Reported Smoking Status: Never smoker Past Alcohol Use History: None Reported Past Drug Use History: None Reported - Past Family History Father Family Medical History: CVA/TIA Mother Family Medical History: Cancer Additional Family Medical History / Comment(s): from cancer at age 80s General Exam Limitations: physical limitation General appearance: alert, in no apparent distress Head exam: Present: atraumatic Eye exam: Present: normal appearance Neck exam: Present: normal inspection Respiratory exam: Present: decreased breath sounds (Bilateral bases) Cardiovascular Exam: Present: tachycardia, irregular rhythm, other (Difficult to assess pedal pulses secondary to edema) Expanded Peripheral pulses: 2+: Radial (R), Radial (L) GI/Abdominal exam: Present: soft. Absent: tenderness Extremities exam: Present: pedal edema (+3 bilateral), other (Bilateral feet caked with debris and hair. Left lower leg erythema and occasional ulcer) Neurological exam: Present: alert Psychiatric exam: Present: normal affect, normal mood Skin exam: Present: erythema (Left lower leg and foot) Course Vital Signs 01/21/19 01/21/19 01/21/19 11:10 11:17 11:19 Temperature 98.2 F Pulse Rate 129 H Pulse Rate [ 129 H Pulse Oximetery ] Respiratory 24 Rate Blood Pressure 112/100 108/71 O2 Sat by Pulse 95 93 L Oximetry 01/21/19 01/21/19 01/21/19 12:00 12:19 12:52 Temperature Pulse Rate 122 H 122 H Pulse Rate [ Pulse Oximetery ] Respiratory 20 18 Rate Blood Pressure 112/100 104/56 O2 Sat by Pulse 96 Oximetry 01/21/19 13:00 Temperature Pulse Rate 109 H Pulse Rate [ Pulse Oximetery ] Respiratory 18 Rate Blood Pressure 104/56 O2 Sat by Pulse 95 Oximetry EKG Findings - EKG Comments: EKG Findings:: irRegular wide-complex tachycardia with a rate of 137. SC 140. QRS 160. QT 306. QTc 462. Left axis. Left bundle branch block. Nonspecific ST-T. Medical Decision Making - Medical Decision Making Patient reevaluated and updated. Case was discussed in detail with Dr. Castorena, who will admit covering for Dr. Hall. Cardiology and GI will be placed on consult. Ultrasound gallbladder will be done as well as hepatitis panel. Troponin will need to be reordered. Patient will be placed on antibiotics for left leg cellulitis. Patient does meet sepsis criteria diagnosed at 1345. Blood culture and lactic acid have been ordered. IV antibiotics will be ordered. - Lab Data Result diagrams: 01/21/19 11:35 01/21/19 11:35 Lab Results 01/21/19 01/21/19 01/21/19 Range/Units 11:35 11:35 11:35 WBC 18.8 H (3.8-10.6) k/uL RBC 5.13 (4.30-5.90) m/uL Hgb 15.7 (13.0-17.5) gm/dL Hct 47.3 (39.0-53.0) % MCV 92.3 (80.0-100.0) fL MCH 30.6 (25.0-35.0) pg MCHC 33.1 (31.0-37.0) g/dL RDW 16.7 H (11.5-15.5) % Plt Count 142 L (150-450) k/uL Neutrophils % 89 % Lymphocytes % 8 % Monocytes % 3 % Eosinophils % 0 % Basophils % 0 % Neutrophils # 16.7 H (1.3-7.7) k/uL Lymphocytes # 1.4 (1.0-4.8) k/uL Monocytes # 0.5 (0-1.0) k/uL Eosinophils # 0.1 (0-0.7) k/uL Basophils # 0.0 (0-0.2) k/uL Manual Slide Review Performed Large Platelets Present Polychromasia Present Anisocytosis Slight PT 42.5 H (9.0-12.0) sec INR 4.4 H (<1.2) APTT 33.2 H (22.0-30.0) sec Sodium 135 L (137-145) mmol/L Potassium 5.5 H (3.5-5.1) mmol/L Chloride 103 (98-107) mmol/L Carbon Dioxide 16 L (22-30) mmol/L Anion Gap 16 mmol/L BUN 81 H (9-20) mg/dL Creatinine 3.38 H (0.66-1.25) mg/dL Est GFR (CKD-EPI)AfAm 21 (>60 ml/min/1.73 sqM) Est GFR (CKD-EPI)NonAf 18 (>60 ml/min/1.73 sqM) Glucose 89 (74-99) mg/dL Calcium 9.7 (8.4-10.2) mg/dL Magnesium 2.0 (1.6-2.3) mg/dL Total Bilirubin 5.8 H (0.2-1.3) mg/dL AST 2320 H (17-59) U/L ALT 1914 H (21-72) U/L Alkaline Phosphatase 127 H (38-126) U/L Troponin I (0.000-0.034) ng/mL NT-Pro-B Natriuret Pep pg/mL Total Protein 6.9 (6.3-8.2) g/dL Albumin 3.9 (3.5-5.0) g/dL TSH 10.800 H (0.465-4.680) mIU/L Free T4 1.89 (0.78-2.19) ng/dL Free T3 pg/mL 2.0 L (2.8-5.3) pg/ml 01/21/19 01/21/19 Range/Units 11:35 11:35 WBC (3.8-10.6) k/uL RBC (4.30-5.90) m/uL Hgb (13.0-17.5) gm/dL Hct (39.0-53.0) % MCV (80.0-100.0) fL MCH (25.0-35.0) pg MCHC (31.0-37.0) g/dL RDW (11.5-15.5) % Plt Count (150-450) k/uL Neutrophils % % Lymphocytes % % Monocytes % % Eosinophils % % Basophils % % Neutrophils # (1.3-7.7) k/uL Lymphocytes # (1.0-4.8) k/uL Monocytes # (0-1.0) k/uL Eosinophils # (0-0.7) k/uL Basophils # (0-0.2) k/uL Manual Slide Review Large Platelets Polychromasia Anisocytosis PT (9.0-12.0) sec INR (<1.2) APTT (22.0-30.0) sec Sodium (137-145) mmol/L Potassium (3.5-5.1) mmol/L Chloride (98-107) mmol/L Carbon Dioxide (22-30) mmol/L Anion Gap mmol/L BUN (9-20) mg/dL Creatinine (0.66-1.25) mg/dL Est GFR (CKD-EPI)AfAm (>60 ml/min/1.73 sqM) Est GFR (CKD-EPI)NonAf (>60 ml/min/1.73 sqM) Glucose (74-99) mg/dL Calcium (8.4-10.2) mg/dL Magnesium (1.6-2.3) mg/dL Total Bilirubin (0.2-1.3) mg/dL AST (17-59) U/L ALT (21-72) U/L Alkaline Phosphatase (38-126) U/L Troponin I 0.324 H* (0.000-0.034) ng/mL NT-Pro-B Natriuret Pep 71402 pg/mL Total Protein (6.3-8.2) g/dL Albumin (3.5-5.0) g/dL TSH (0.465-4.680) mIU/L Free T4 (0.78-2.19) ng/dL Free T3 pg/mL (2.8-5.3) pg/ml - Radiology Data Radiology results: image reviewed (Chest x-ray shows cardiomegaly and shows interstitial prominence) Critical Care Time Critical Care Time: Yes Total Critical Care Time: 33 Disposition Clinical Impression: Congestive heart failure, Cellulitis of left leg, Sepsis, Liver enzyme elevation Disposition: ADMITTED IP TO THIS [facility] Condition: Serious Is patient prescribed a controlled substance at d/c from ED?: No Referrals: Sherman Hall MD [Primary Care Provider] - 1-2 days Decision Time: 13:31
[2019-01-21] MEDS ORDERED: DILTIAZEM 125 MG in SODIUM CHLORIDE 0.9% 100 ML IV SCH (12:00)
[2019-01-21 12:06] LABS: Anisocytosis Slight; Basophils % (A) 0 %; Eosinophils # (A) 0.1 k/uL (0-0.7); Eosinophils % (A) 0 %; HCT 47.3 % (39.0-53.0); HGB 15.7 gm/dL (13.0-17.5); Lymphocytes # (A) 1.4 k/uL (1.0-4.8); Lymphocytes % (A) 8 %; MCH 30.6 pg (25.0-35.0); MCHC 33.1 g/dL (31.0-37.0); MCV 92.3 fL (80.0-100.0); Mean Platelet Volume 12.7; Monocytes # (A) 0.5 k/uL (0-1.0); Monocytes % (A) 3 %; Neutrophils # (A) 16.7 k/uL (1.3-7.7); Neutrophils % (A) 89 %; Platelet Count 142 k/uL (150-450); RBC 5.13 m/uL (4.30-5.90); RDW 16.7 % (11.5-15.5); WBC 18.8 k/uL (3.8-10.6)
[2019-01-21 12:17] LABS: Albumin 3.9 g/dL (3.5-5.0); Calcium 9.7 mg/dL (8.4-10.2); Potassium 5.5 mmol/L (3.5-5.1); Total Bilirubin 5.8 mg/dL (0.2-1.3); Total Protein 6.9 g/dL (6.3-8.2)
[2019-01-21 12:18] LABS: Large Platelets Present; Polychromasia Present
[2019-01-21 12:23] LABS: INR 4.4 (<1.2); Partial Thromboplastin Time 33.2 sec (22.0-30.0); Prothrombin Time 42.5 sec (9.0-12.0)
[2019-01-21 12:31] LABS: T4, Free (Free Thyroxine) 1.89 ng/dL (0.78-2.19)
--- NOTE | 2019-01-21 12:52 | XR ---
EXAMINATION TYPE: XR chest 2V DATE OF EXAM: 01/21/2019 COMPARISON: 02/27/2018 HISTORY: 63-year-old male with dysrhythmia, shortness of breath TECHNIQUE: AP and lateral views FINDINGS: Heart remains moderately enlarged. Diffuse interstitial prominence. Some patchy basilar opacity. No s izable effusion. IMPRESSION: Similar moderate cardiomegaly. Interstitial prominence suggests pulmonary vascular congestion.
[2019-01-21] MEDS ORDERED: AMPICILLIN-SULBACTAM 3 GM in SODIUM CHLORIDE 0.9% 100 ML IVPB STA (13:49)
[2019-01-21] MEDS ORDERED: NITROGLYCERIN SL TABS 0.4 MG TAB SUBLINGUAL PRN (13:52)
[2019-01-21] MEDS ORDERED: FUROSEMIDE 10 MG/ML 4 ML VIAL IV STA (13:54)
[2019-01-21] MEDS ORDERED: PNEUMOCOCCAL VACC-PNEUMOVAX 23 25 MCG/0.5 ML VIAL IM ONE (14:31)
[2019-01-21 14:46] LABS: Hepatitis A Antibody IgM NEGATIVE
--- NOTE | 2019-01-21 14:54 | US ---
EXAMINATION TYPE: US gallbladder DATE OF EXAM: 01/21/2019 COMPARISON: NONE CLINICAL HISTORY: 63-year-old male Elevated LFT's TECHNIQUE: Multiple sonographic images of the right upper quadrant are obtained. FINDINGS: EXAM MEASUREMENTS: Liver Length: 17.5 cm Gallbladder Wall: 0.4 cm Right Kidney: 11.3 x 4.8 x 5.1 cm Meeting Facilitator notes: VERY limited exam, scanned pt sitting upright, SOB, morbidly obese Pancreas: Obscured by bowel gas Liver: Liver had appearance of being displaced to the midline/left, limiting visualization question enlargement or congenital variation positioning. Somewhat hypoechoic appearance. Gallbladder: Anechoic area possibly representing GB, slightly contracted, but may be borderline into 3.8 mm. Evidence for sonographic Ramos's sign: No CBD: Unable to visualize due to large body habitus and displacement of liver Right Kidney: Visualized portions appeared wnl IMPRESSION: Very limited exam as the patient was scanned sitting upright. Large patient body habitus with shortne ss of breath. There is borderline hepatomegaly and somewhat hypoechoic appearance to the liver. Correlate to exclud e hepatitis. Questionable visualization of a nondistended gallbladder. Bile duct and pancreas not visualized.
--- NOTE | 2019-01-21 16:00 | P.CRDCN ---
History of Present Illness Consult date: 01/21/19 Requesting physician: Abdulaziz Castorena Consult reason: congestive heart failure Chief complaint: Shortness of breath, bilateral lower extremity edema History of present illness: 6 is a 63-year-old gentleman with history of hyperlipidemia, hypertension, morbid obesity, chronic diastolic heart failure, follows with Dr. Goodwin in the office. We had seen the patient in consultation back in February 2018. Patient is very unkempt, very unclean, does not have a bath or shower on a regular basis. He presented to the hospital on this admission with symptoms of progressively worsening shortness of breath which she states has been going on for at least a month but over the past few days extremely worse. He also has noticed significant swelling in both of his lower extremities, his left lower extremity is not only swollen but was extremely red and tender. Chest x-ray showed moderate cardiomegaly, interstitial prominence suggesting pulmonary vascular congestion. EKG on presentation here showed a sinus tachycardia with left bundle pattern, similar to EKGs when the patient was in the hospital approximately a year ago. Blood pressure 106/60, heart rate 103, 95% on room air. White blood cell count 18.8, hemoglobin 15.7, platelet count 142. INR 4.4. Sodium 135, potassium 5.5, BUN 81, creatinine 3.3, plasma lactic acid 3.3, magnesium 2.0, total bilirubin 5.8, AST 2320, ALT 1914, alk phos 127, troponin 0.3-4. BNP level XLVII,D. TSH level X.8 free T4 1.8 and free T3 2 .0. Hep atitis a and B-. Past Medical History Past Medical History: Atrial Fibrillation, Coronary Artery Disease (CAD), Cancer, Heart Failure, Hyperlipidemia, Hypertension, Myocardial Infarction (IN), Pneumonia, Renal Disease, Thyroid Disorder Additional Past Medical History / Comment(s): Bronchitis, possible IN per EKG, hypothyroid, CKD stage III, bilateral lower extremity venous insufficiency/chronic venous stasis/past cellulitis bilateral lower legs, skin cancer with removals. Last Myocardial Infarction Date:: unkn History of Any Multi-Drug Resistant Organisms: None Reported Past Surgical History: Adenoidectomy, Tonsillectomy Additional Past Surgical History / Comment(s): Bilateral cataract removals/lens implants, skin cancer removals L hand/L shoulder/L ear, midline IV-since removed. Past Anesthesia/Blood Transfusion Reactions: No Reported Reaction Smoking Status: Never smoker - Past Family History Father Family Medical History: CVA/TIA Additional Family Medical History / Comment(s): Father at the age of 90yrs. Mother Family Medical History: Cancer Additional Family Medical History / Comment(s): Mother from cancer (unknown type) at age 80s Medications and Allergies Home Medications Medication Instructions Recorded Confirmed Type Allopurinol [Zyloprim] 300 mg PO DAILY 04/17/17 01/21/19 History Atorvastatin [Lipitor] 20 mg PO HS 04/17/17 01/21/19 History Potassium Chloride ER [K-Dur 20] 20 meq PO DAILY 04/17/17 01/21/19 History Furosemide [Lasix] 40 mg PO DAILY #0 04/20/17 01/21/19 Rx Aspirin 81 mg PO DAILY chew 03/08/18 01/21/19 Rx Spironolactone [Aldactone] 25 mg PO DAILY #30 tab 03/08/18 01/21/19 Rx Levothyroxine Sodium [Synthroid] 25 mcg PO SUMOWEFRSA 01/21/19 01/21/19 History Metoprolol Tartrate [Lopressor] 50 mg PO BID 01/21/19 01/21/19 History Warfarin [Coumadin] 5 mg PO TH 01/21/19 01/21/19 History Warfarin [Coumadin] 7.5 mg PO TUSA 01/21/19 01/21/19 History Allergies Allergy/AdvReac Type Severity Reaction Status Date / Time No Known Allergies Allergy Verified 01/21/19 11:26 Physical Exam Vitals: Vital Signs Temp Pulse Pulse Resp BP Pulse Ox 01/21/19 14:00 98.6 F 103 H 20 106/61 95 01/21/19 13:00 109 H 18 104/56 95 01/21/19 12:52 104/56 01/21/19 12:19 122 H 18 112/100 01/21/19 12:00 122 H 20 96 01/21/19 11:19 129 H 01/21/19 11:17 98.2 F 129 H 24 108/71 93 L 01/21/19 11:10 112/100 95 Intake and Output 01/21/19 01/21/19 01/21/19 06:59 14:59 22:59 Other: Weight 136.078 kg GENERAL: This is a 62-year-old male in no apparent distress at the time of my examination. Morbid obesity. HEENT: Head is atraumatic, normocephalic. Pupils are equal, round. Sclerae anicteric. Conjunctivae are clear. Mucous membranes of the mouth are moist. Neck is supple. There is jugular venous distention although difficult to assess secondary to body habitus. No carotid bruit is heard. LUNGS: Bibasilar rales. No wheezes or rhonchi. No chest wall tenderness is noted on palpation or with deep breathing. HEART: Regular rate and rhythm without murmurs, rubs or gallops. S1 and S2 heard. ABDOMEN: Soft, obese, elderly distended, nontender. Bowel sounds are heard. Hepatomegaly. EXTREMITIES: Significant 2 to 3 + plus pitting edema , with significant redness noted to the left lower extremity suggestive of cellulitis VASCULAR: Radial and dorsalis pedis pulses palpated, no evidence of clubbing. NEUROLOGIC: Patient is awake, alert and oriented x3. Results 01/21/19 11:35 01/21/19 11:35 Cardiac Enzymes 01/21/19 01/21/19 Range/Units 11:35 11:35 AST 2320 H (17-59) U/L Troponin I 0.324 H* (0.000-0.034) ng/mL Coagulation 01/21/19 Range/Units 11:35 PT 42.5 H (9.0-12.0) sec APTT 33.2 H (22.0-30.0) sec CBC 01/21/19 Range/Units 11:35 WBC 18.8 H (3.8-10.6) k/uL RBC 5.13 (4.30-5.90) m/uL Hgb 15.7 (13.0-17.5) gm/dL Hct 47.3 (39.0-53.0) % Plt Count 142 L (150-450) k/uL Comprehensive Metabolic Panel 01/21/19 Range/Units 11:35 Sodium 135 L (137-145) mmol/L Potassium 5.5 H (3.5-5.1) mmol/L Chloride 103 (98-107) mmol/L Carbon Dioxide 16 L (22-30) mmol/L BUN 81 H (9-20) mg/dL Creatinine 3.38 H (0.66-1.25) mg/dL Glucose 89 (74-99) mg/dL Calcium 9.7 (8.4-10.2) mg/dL AST 2320 H (17-59) U/L ALT 1914 H (21-72) U/L Alkaline Phosphatase 127 H (38-126) U/L Total Protein 6.9 (6.3-8.2) g/dL Albumin 3.9 (3.5-5.0) g/dL Current Medications Generic Name Dose Route Start Last Admin Trade Name Freq PRN Reason Stop Dose Admin Aspirin 325 mg 01/22/19 09:00 Aspirin PO DAILY RADHA Furosemide 40 mg 01/21/19 16:00 Lasix IV Q8HR RADHA Diltiazem HCl 125 mg/ Sodium 125 mls @ 5 mls/hr 01/21/19 12:00 01/21/19 11:48 Chloride IV 5 mg/hr .Q24H RADHA 5 mls/hr Administration 5 MG/HR Ampicillin Sodium/Sulbactam 100 mls @ 200 mls/hr 01/21/19 19:00 Sodium 3 gm/ Sodium Chloride IVPB Q6HR RADHA Nitroglycerin 0.4 mg 01/21/19 13:52 Nitrostat SUBLINGUAL Q5M PRN Chest Pain Nitroglycerin 1 inch 01/21/19 18:00 Nitro-Bid Oint TOPICAL Q6HR RADHA Sodium Chloride 10 ml 01/21/19 21:00 Saline Flush IV BID RADHA Intake and Output 01/21/19 01/21/19 01/21/19 06:59 14:59 22:59 Other: Weight 136.078 kg Patient Weight 01/22/19 06:59 Weight 136.078 kg 01/21/19 11:35 01/21/19 11:35 EKG Interpretations (text) KG shows a sinus tachycardia with left bundle branch Assessment and Plan Plan: Assessment and plan #1 systolic congestive heart failure acute on chronic, documented ejection fraction in February 2000 1820-25% #2 Cellulitis of the left lower extremity #3 Leukocytosis, elevated plasma lactic acid, secondary to sepsis #4 Hypertension #5 Dyslipidemia #6 elevated troponins not indicative of an acute coronary event may be related to sepsis #7 Acute on chronic renal failure #8 Morbid obesity, BMI 51 #9 paroxysmal atrial fibrillation on Coumadin for anticoagulation, INR is supratherapeutic, likely secondary to liver congestion congestive cardiac fa ilure. #10 abnormal liver enzymes likely secondary to congestion #11 hypothyroidism, TSH 10.8 #12 elevated liver enzymes, hepatitis A and B-. #13hypokalemia Plan Will obtain an echocardiogram with Doppler study. Decrease aspirin to 81 mg daily, continue IV Lasix, discontinue Nitropaste. Initiate the patient on a low-dose beta robles. Patient is currently not on an NURIS inhibitor or angiotensin robles secondary to elevated creatinine and potassium level. Monitor intake and output. Hold Coumadin. Further recommendations to follow. DNP note has been reviewed, I agree with a documented findings and plan of care. Patient was seen and examined.
[2019-01-21 16:10] LABS: ABG HCO3 17 mmol/L (21-25); ABG Oxygen Saturation 95.1 % (94-97); ABG PCO2 27 mmHg (35-45); ABG PH 7.41 (7.35-7.45); ABG PO2 78 mmHg (83-108); ABG TCO2 18 mmol/L (19-24); Allen Test Performed? Yes
[2019-01-21] MEDS ORDERED: IPRATROPIUM-ALBUTEROL 3 ML NEB INHALATION PRN (16:10)
[2019-01-21] MEDS: FUROSEMIDE 10 MG/ML 4 ML VIAL IV SCH ×2 (16:11→22:57)
[2019-01-21] MEDS ORDERED: PIPERACILLIN-TAZOBACTAM 3.375 GM in SODIUM CHLORIDE 0.9% 100 ML IVPB SCH (16:15)
[2019-01-21 16:33] LABS: Glucose,Whole Blood 83 mg/dL (75-99)
[2019-01-21] MEDS ORDERED: CEFEPIME 2 GM in SODIUM CHLORIDE 0.9% 100 ML IVPB SCH (16:40)
[2019-01-21 17:06] LABS: Ammonia <9 umol/L (<30)
[2019-01-21 17:08] LABS: Lactic Acid, Venous 2.4 mmol/L (0.7-2.0)
--- NOTE | 2019-01-21 17:15 | US ---
EXAMINATION TYPE: US venous doppler duplex LE LT DATE OF EXAM: 01/21/2019 5:00 PM COMPARISON: None CLINICAL HISTORY: 63-year-old male R/O DVT. Left leg redness. Poor historian. SIDE PERFORMED: Left TECHNIQUE: The lower extremity deep venous system is examined utilizing real time linear array sonog abrahan with graded compression, doppler sonography and color-flow sonography. FINDINGS: VESSELS IMAGED: External Iliac Vein (EIV) Common Femoral Vein Deep Femoral Vein Greater Saphenous Vein * Femoral Vein Popliteal Vein Small Saphenous Vein * Proximal Calf Veins (* superficial vessels) President And Cmo notes:Limited due to patient body habitus Left Leg: Negative for acute DVT IMPRESSION: Limited due to large patient body habitus. No evidence for DVT within the left lower extremity imaged from the groin to the upper calf.
[2019-01-21] MEDS: CLINDAMYCIN 900 MG in DEXTROSE 5% IN WATER 50 ML IVPB SCH ×4 (17:58→22:56)
[2019-01-21] MEDS: NITROGLYCERIN OINT 1 INCH/GM PACKET TOPICAL SCH ×2 (18:28→22:57)
[2019-01-21] MEDS ORDERED: AMPICILLIN-SULBACTAM 3 GM in SODIUM CHLORIDE 0.9% 100 ML IVPB SCH (19:00)
--- NOTE | 2019-01-21 20:52 | HP ---
HISTORY AND PHYSICAL CHIEF COMPLAINT: Shortness of breath and as well as left leg swelling. HISTORY OF PRESENT ILLNESS: This 63-year-old gentleman with a past medical history of atrial ablation, CAD, CHF, hypertension, hyperlipidemia, myocardial infarction being followed by Dr. Bravo in the outpatient setting, was not feeling well for the past 2 weeks. The patient has increased shortness of breath. The patient has swelling and redness of the left leg and the patient was taken to [facility] today and admitted for further evaluation and treatment. Patient had multiple features of CHF and as well as cellulitis and as well as renal failure also possible acute on chronic. The creatinine was elevated up to 3.38. Baseline was anywhere between 1-2. The patient also had Coumadin coagulopathy. There is no history of fever, rigors, chills, headache, loss of consciousness, seizures. The patient also had an ABG done which showed lactic acid also elevated indicating sepsis. ABG showed compensated pH of 7.41, pCO2 27, and PO2 78 and bicarb was 17 in the ABGs. INR was 4.4. Patient was admitted to the hospital for further evaluation and treatment. Patient started on broad-spectrum IV antibiotics also. There is no history of fever, rigors, chills, no headache, loss of consciousness, seizures at this time. PAST MEDICAL HISTORY: History of atrial fibrillation, history of CAD, history of CHF, hypertension, hyperlipidemia, myocardial infarction, history of pneumonia. MEDICATION: Home medications are: 1. Coumadin 7.5 mg Sunday and Sunday. 2. Synthroid 25 mcg on Sunday, Sunday, Sunday, Sunday, Sunday. 3. Coumadin 5 mg p.o. . 4. Aldactone 25 mg p.o. daily. 5. K-Dur 20 mEq p.o. daily. 6. Lopressor 50 mg p.o. b.i.d. 7. Lasix 40 mg p.o. daily. 8. Lipitor 20 mg q.h.s. 9. Aspirin 81 mg p.o. daily. 10.Zyloprim 300 mg p.o. daily. ALLERGIES: None. FAMILY HISTORY: History of CVA and TIA in the family. SOCIAL HISTORY: No history of smoking. No history of alcohol intake. REVIEW OF SYSTEMS: ENT: No diminished hearing, diminished vision. CARDIOVASCULAR: No angina or palpitations. RESPIRATORY: As mentioned earlier. GI mentioned earlier. no dysuria. NERVOUS SYSTEM: No numbness or weakness. ALLERGY/IMMUNOLOGY: No asthma or hayfever. MUSCULOSKELETAL as mentioned earlier. HEMATOLOGY/ONCOLOGY: No history of anemia. ENDOCRINE: Hypothyroidism. CONSTITUTIONAL: As mentioned earlier. DERMATOLOGY: Negative. RHEUMATOLOGY: Negative. PSYCHIATRY: As mentioned earlier. PHYSICAL EXAMINATION: GENERAL: Alert and oriented x3. VITAL SIGNS: Pulse 103. Blood pressure 106/61, respiration 20, temperature 98.2, pulse ox 94% on room air. HEENT: Conjunctivae icteric. Oral mucosa moist. NECK is jugular venous distention at the root of the neck. Breathing efforts increased. CARDIOVASCULAR system: S1, S2 muffled. No S3. No S4. RESPIRATORY: Breath sounds diminished in the bases. Bilateral scattered rhonchi and crackles. ABDOMEN: Soft. Obese. Mild diffuse discomfort. No guarding. No rigidity. No mass palpable. LEGS: Left leg significant swelling and edema starting from the foot up to the knee. Erythema. Some minimal breakdown areas without much discharge. Severely tender. Significant swelling on the right leg. NERVOUS SYSTEM: Higher functions as mentioned earlier. Moves all four limbs. No focal motor or sensory deficits. LYMPHATICS: No lymph nodes palpable in the neck, axillae or groin. SKIN as mentioned earlier. JOINTS: No active deforming arthropathy. LABS: WBC 15.8, hemoglobin 15.7, INR 4.4, sodium 130. Potassium 5.5. Lactic acid 3.3. AST and ALT noted. Other labs are reviewed. ASSESSMENT: 1. Acute left leg cellulitis with sepsis present on admission. 2. Congestive heart failure, acute exacerbation with acute on chronic systolic dysfunction, ejection fraction 20%. 3. Increased WBC. 4. Acute hepatitis with elevated AST, ALT, possibly secondary to sepsis or congestive heart failure. 5. Increased bilirubin. 6. Troponin 0.324 indeterminate. 7. Elevated lactic acid secondary to sepsis. 8. Hyperkalemia. 9. Hyponatremia. 10.Acute renal failure possibly acute tubular necrosis multifactorial. 11.Possible chronic kidney stage 3 as baseline. 12.Coumadin coagulopathy. 13.Mild thrombocytopenia. 14.Obesity with body mass index 45.6. 15.History of atrial fibrillation. 16.History of congestive heart failure. 17.Hypertension. 18.Hyperlipidemia. 19.History of pneumonia. 20.History of lower extremity venous insufficiency. 21.Adenoidectomy, tonsillectomy. RECOMMENDATIONS AND DISCUSSION: In this 63-year-old gentleman who presented with multiple complex medical issues, we will monitor the patient closely, continue the current management and continue symptomatic treatment. Continue with broad-spectrum IV antibiotics. We will initiate broad-spectrum IV antibiotics. Obtain the cultures. Otherwise, continue with IV Lasix cautiously. Repeat labs are ordered. ABGs ordered. Pulmonary consultation along with otherwise 2D echo has been ordered as well as mentioned earlier the patient possibly had cardiorenal syndrome from severe CHF as well. Broad-spectrum IV antibiotics. Infectious disease evaluation. Prognosis guarded because of multiple complex medical issues. Further recommendations to follow. A copy of dictation being forwarded to Dr. Bravo who is the primary physician. CARINE / MARTAN: [id number] / MTDD
[2019-01-21] MEDS: METOPROLOL TARTRATE 50 MG TAB PO SCH (22:05)
[2019-01-21] MEDS: CEFEPIME 2 GM in SODIUM CHLORIDE 0.9% 100 ML IVPB SCH (22:52)
--- NOTE | 2019-01-21 22:57 | P.CONS ---
History of Present Illness - Reason for Consult Consult date: 01/21/19 Sepsis Requesting physician: Abdulaziz Castorena - Chief Complaint Shortness of breath and leg swellings 1 month - History of Present Illness Patient is a 63-year-old male presenting to the ER at [facility] with a chief complaints of increasing shortness of breath that has been progressively getting worse over the last 1 month patient also have swelling in both lower extremity that has been progressively getting worse for the last 1 month patient denies having any chest pain he did have very minimal cough which has been dry in nature denies having any URI symptoms some nausea but no vomiting and no abdominal pain and no diarrhea patient left leg is more swollen and red the pain has been getting worse over the last 1 week patient did have some dull aching pain to the left leg with intensity about 54-10 and no radiation currently do not have any blood wound or any drainage with the symptoms and the patient was evaluated by the ER physician on arrival to the ER the patient has been afebrile however he was tachycardic and did have elevated white count of 18,000 patient also have elevated lactic acid and also elevated BUN/creatinine patient did have a chest x-ray had did show some bilateral pleural effusion patient was initially "was a penicillin the area which was subsequently zosyn and infectious disease was consulted for further recommenda tion about antibiotic therapy Review of Systems Positive point has been mentioned in the HPI rest of the systems are negative Past Medical History Past Medical History: Atrial Fibrillation, Coronary Artery Disease (CAD), Cancer, Heart Failure, Hyperlipidemia, Hypertension, Myocardial Infarction (AL), Pneumonia, Renal Disease, Thyroid Disorder Additional Past Medical History / Comment(s): Bronchitis, possible AL per EKG, hypothyroid, CKD stage III, bilateral lower extremity venous insufficiency/chronic venous stasis/past cellulitis bilateral lower legs, skin cancer with removals. Last Myocardial Infarction Date:: unkn History of Any Multi-Drug Resistant Organisms: None Reported Past Surgical History: Adenoidectomy, Tonsillectomy Additional Past Surgical History / Comment(s): Bilateral cataract removals/lens implants, skin cancer removals L hand/L shoulder/L ear, midline IV-since removed. Past Anesthesia/Blood Transfusion Reactions: No Reported Reaction Smoking Status: Never smoker - Past Family History Father Family Medical History: CVA/TIA Additional Family Medical History / Comment(s): Father at the age of 90yrs. Mother Family Medical History: Cancer Additional Family Medical History / Comment(s): Mother from cancer (unknown type) at age 80s Medications and Allergies Home Medications Medication Instructions Recorded Confirmed Type Allopurinol [Zyloprim] 300 mg PO DAILY 04/17/17 01/21/19 History Atorvastatin [Lipitor] 20 mg PO HS 04/17/17 01/21/19 History Potassium Chloride ER [K-Dur 20] 20 meq PO DAILY 04/17/17 01/21/19 History Furosemide [Lasix] 40 mg PO DAILY #0 04/20/17 01/21/19 Rx Aspirin 81 mg PO DAILY chew 03/08/18 01/21/19 Rx Spironolactone [Aldactone] 25 mg PO DAILY #30 tab 03/08/18 01/21/19 Rx Levothyroxine Sodium [Synthroid] 25 mcg PO SUMOWEFRSA 01/21/19 01/21/19 History Metoprolol Tartrate [Lopressor] 50 mg PO BID 01/21/19 01/21/19 History Warfarin [Coumadin] 5 mg PO TH 01/21/19 01/21/19 History Warfarin [Coumadin] 7.5 mg PO TUSA 01/21/19 01/21/19 History Allergies Allergy/AdvReac Type Severity Reaction Status Date / Time No Known Allergies Allergy Verified 01/21/19 11:26 Physical Exam Vitals: Vital Signs Temp Pulse Pulse Resp BP Pulse Ox 01/21/19 14:00 98.6 F 103 H 20 106/61 95 01/21/19 13:00 109 H 18 104/56 95 01/21/19 12:52 104/56 01/21/19 12:19 122 H 18 112/100 01/21/19 12:00 122 H 20 96 01/21/19 11:19 129 H 01/21/19 11:17 98.2 F 129 H 24 108/71 93 L 01/21/19 11:10 112/100 95 Intake and Output 01/21/19 01/21/19 01/21/19 06:59 14:59 22:59 Other: Weight 136.078 kg GENERAL DESCRIPTION: Middle-aged male lying in bed, no distress. No tachypnea or accessory muscle of respiration use. HEENT: Shows Pallor , no scleral icterus. Oral mucous membrane is dry. No pharyngeal erythema or thrush NECK: Trachea central, no thyromegaly. LUNGS: Unlabored breathing. Decreased breath sound at the base No wheeze or crackle. HEART: S1, S2, regular rate and rhythm. No loud murmur ABDOMEN: Soft, no tenderness , guarding or rigidity, no organomegaly EXTREMITIES: Significant swelling of both lower extremity however left is greater than right patient also have diffuse redness to the left leg which is warm and tender to touch currently with no open wound or any drainage SKIN: No rash, no masses palpable. NEUROLOGICAL: The patient is awake, alert, oriented x3, mood and affect normal. Results CBC & Chem 7: 01/21/19 11:35 01/21/19 11:35 Labs: Abnormal Lab Results - Last 24 Hours (Table) 01/21/19 01/21/19 01/21/19 Range/Units 11:35 11:35 11:35 WBC 18.8 H (3.8-10.6) k/uL RDW 16.7 H (11.5-15.5) % Plt Count 142 L (150-450) k/uL Neutrophils # 16.7 H (1.3-7.7) k/uL PT 42.5 H (9.0-12.0) sec INR 4.4 H (<1.2) APTT 33.2 H (22.0-30.0) sec ABG pCO2 (35-45) mmHg ABG pO2 (83-108) mmHg ABG HCO3 (21-25) mmol/L ABG Total CO2 (19-24) mmol/L Sodium 135 L (137-145) mmol/L Potassium 5.5 H (3.5-5.1) mmol/L Carbon Dioxide 16 L (22-30) mmol/L BUN 81 H (9-20) mg/dL Creatinine 3.38 H (0.66-1.25) mg/dL Plasma Lactic Acid Dario (0.7-2.0) mmol/L Total Bilirubin 5.8 H (0.2-1.3) mg/dL AST 2320 H (17-59) U/L ALT 1914 H (21-72) U/L Alkaline Phosphatase 127 H (38-126) U/L Troponin I (0.000-0.034) ng/mL TSH 10.800 H (0.465-4.680) mIU/L Free T3 pg/mL 2.0 L (2.8-5.3) pg/ml 01/21/19 01/21/19 01/21/19 Range/Units 11:35 11:35 16:05 WBC (3.8-10.6) k/uL RDW (11.5-15.5) % Plt Count (150-450) k/uL Neutrophils # (1.3-7.7) k/uL PT (9.0-12.0) sec INR (<1.2) APTT (22.0-30.0) sec ABG pCO2 27 L (35-45) mmHg ABG pO2 78 L (83-108) mmHg ABG HCO3 17 L (21-25) mmol/L ABG Total CO2 18 L (19-24) mmol/L Sodium (137-145) mmol/L Potassium (3.5-5.1) mmol/L Carbon Dioxide (22-30) mmol/L BUN (9-20) mg/dL Creatinine (0.66-1.25) mg/dL Plasma Lactic Acid Dario 3.3 H* (0.7-2.0) mmol/L Total Bilirubin (0.2-1.3) mg/dL AST (17-59) U/L ALT (21-72) U/L Alkaline Phosphatase (38-126) U/L Troponin I 0.324 H* (0.000-0.034) ng/mL TSH (0.465-4.680) mIU/L Free T3 pg/mL (2.8-5.3) pg/ml Assessment and Plan Assessment: 1-patient presented to hospital with sepsis in this patient who did have a tachycardia and elevated white count and elevated lactic acid source is left lower extremity cellulitis in this patient is in hospital with increasing shortness of breath progressively getting worse for the last 1 month likely evidence of fluid overload and diffuse swelling redness could be more likely a streptococcal cellulitis clinically suspicion of underlying MRSA and gram- negative infection but not entirely excluded 2-patient with elevated creatinine and high risk of nephrotoxicity with some antibiotic that he may need for his underlying sepsis (1) Cellulitis of left leg Current Visit: Yes Status: Acute Code(s): L03.116 - CELLULITIS OF LEFT LOWER LIMB SNOMED Code(s): 979529179 (2) Sepsis Current Visit: Yes Status: Acute Code(s): A41.9 - SEPSIS, UNSPECIFIED ORGANISM SNOMED Code(s): 95071699 Plan: 1-discontinue the Zosyn 2-start the patient on cefepime 2 g every 24 hours dosage adjusted to his kidney function 3-clindamycin 900 mg every 8 hours 4-Eitan the area of the redness left leg 5-Hermes wrap to the left leg from just above toe to below the knee We will follow on clinical condition and cultures to further adjust medication if needed Thank you for this consultation will follow this patient with you
[2019-01-22 02:17] LABS: Hepatitis B Core IgM Non-Reactive (Non-Reactive); Hepatitis B Surface Antigen Non-Reactive (Non-Reactive); Hepatitis C IgG Antibody Non-Reactive (Non-Reactive)
[2019-01-22 06:14] LABS: Anisocytosis Slight; Basophils % (A) 0 %; Eosinophils # (A) 0.1 k/uL (0-0.7); Eosinophils % (A) 0 %; HCT 45.4 % (39.0-53.0); HGB 14.3 gm/dL (13.0-17.5); Hypochromasia Slight; Lymphocytes # (A) 1.1 k/uL (1.0-4.8); Lymphocytes % (A) 6 %; MCH 30.4 pg (25.0-35.0); MCHC 31.5 g/dL (31.0-37.0); MCV 96.3 fL (80.0-100.0); Mean Platelet Volume 12.2; Monocytes # (A) 0.7 k/uL (0-1.0); Monocytes % (A) 4 %; Neutrophils # (A) 18.5 k/uL (1.3-7.7); Neutrophils % (A) 90 %; Platelet Count 120 k/uL (150-450); RBC 4.71 m/uL (4.30-5.90); RDW 16.6 % (11.5-15.5); WBC 20.7 k/uL (3.8-10.6)
[2019-01-22] MEDS: LEVOTHYROXINE 25 MCG TAB PO SCH (06:16)
[2019-01-22] MEDS: NITROGLYCERIN OINT 1 INCH/GM PACKET TOPICAL SCH (06:16)
[2019-01-22 06:25] LABS: Albumin 3.1 g/dL (3.5-5.0); Calcium 8.7 mg/dL (8.4-10.2); Potassium 5.3 mmol/L (3.5-5.1); Total Bilirubin 4.8 mg/dL (0.2-1.3); Total Protein 5.9 g/dL (6.3-8.2)
[2019-01-22 06:46] LABS: Prothrombin Time 48.2 sec (9.0-12.0)
[2019-01-22] MEDS: IPRATROPIUM-ALBUTEROL 3 ML NEB INHALATION PRN ×2 (08:03→11:26)
[2019-01-22] MEDS: METOPROLOL TARTRATE 50 MG TAB PO SCH ×2 (08:09→20:44)
[2019-01-22] MEDS: FUROSEMIDE 10 MG/ML 4 ML VIAL IV SCH ×2 (08:09→17:29)
[2019-01-22] MEDS: CEFEPIME 2 GM in SODIUM CHLORIDE 0.9% 100 ML IVPB SCH (08:09)
[2019-01-22 08:15] LABS: Large Platelets Present; Poikilocytosis (M) Present
[2019-01-22] MEDS ORDERED: ASPIRIN 325 MG TAB PO SCH (09:00)
[2019-01-22] MEDS: CLINDAMYCIN 900 MG in DEXTROSE 5% IN WATER 50 ML IVPB SCH ×4 (11:13→17:34)
[2019-01-22] MEDS: ASPIRIN 81 MG PO SCH (11:14)
--- NOTE | 2019-01-22 11:18 | P.PN ---
Subjective Progress Note Date: 01/22/19 This is a 63-year-old gentleman with history of hyperlipidemia, hypertension, morbid obesity, chronic diastolic heart failure, follows with Dr. Goodwin in the office. We had seen the patient in consultation back in February 2018. Patient is very unkempt, very unclean, does not have a bath or shower on a regular basis. He presented to the hospital on this admission with symptoms of progressively worsening shortness of breath which she states has been going on for at least a month but over the past few days extremely worse. He also has noticed significant swelling in both of his lower extremities, his left lower extremity is not only swollen but was extremely red and tender. Chest x-ray showed moderate cardiomegaly, interstitial prominence suggesting pulmonary vascular congestion. EKG on presentation here showed a sinus tachycardia with left bundle pattern, similar to EKGs when the patient was in the hospital approximately a year ago. Blood pressure 106/60, heart rate 103, 95% on room air. White blood cell count 18.8, hemoglobin 15.7, platelet count 142. INR 4.4. Sodium 135, potassium 5.5, BUN 81, creatinine 3.3, plasma lactic acid 3.3, magnesium 2.0, total bilirubin 5.8, AST 2320, ALT 1914, alk phos 127, troponin 0.3-4. BNP level 47,500. TSH level X.8 free T4 1.8 and free T3 2 .0. Hepatitis a and B-. 01/22/2019 Patient was seen and examined this morning, he does state that he is feeling mildly better than yesterday. He has been putting out urine, although his weight according to the documentation. Blood pressure 104/60 with a heart rate in the 70s to 80s, 93% on a Ventimask. Venous duplex study was performed which was negative for an acute DVT in the left lower extremity. Ultrasound of the gallbladder was also performed which was a very limited exam because of the patient's body habitus, there is borderline hepatomegaly and somewhat hypoactive. The liver correlate to exclude hepatitis. Questionable visualization of a nondistended gallbladder. Currently on Lasix 40 mg IV every 8 hourly. White blood cell count 20.7, ENA globin 14.3, platelet count 120. Pro time 40.2 with an INR 5.0. Sodium 136, potassium 5.3, BUN 92 and creatinine 3.08. Objective - Vital Signs Vital signs: Vital Signs Temp 98.6 F 01/22/19 03:05 Pulse 74 01/22/19 08:13 Resp 21 01/22/19 03:06 BP 104/60 01/22/19 03:05 Pulse Ox 93 L 01/22/19 03:05 Intake & Output 01/21/19 01/22/19 01/22/19 18:59 06:59 18:59 Intake Total 370 Output Total 1200 Balance -830 Weight 136.078 kg 155.5 kg Intake: Intake, IV Titration 130 Amount Cefepime 2 gm In Sodium 100 Chloride 0.9% 100 ml @ 200 mls/hr IVPB Q24HR RADHA Rx#:[id number] Diltiazem 125 mg In 30 Sodium Chloride 0.9% 100 ml @ 5 MG/HR 5 mls/hr IV .Q24H RADHA Rx#:[id number] Oral 240 Output: Urine 1200 Straight 1200 Other: Voiding Method Indwelling Catheter - Exam GENERAL: This is a 62-year-old male in no apparent distress at the time of my examination. Morbid obesity. HEENT: Head is atraumatic, normocephalic. Pupils are equal, round. Sclerae anicteric. Conjunctivae are clear. Mucous membranes of the mouth are moist. Neck is supple. There is jugular venous distention although difficult to assess secondary to body habitus. No carotid bruit is heard. LUNGS: Bibasilar rales. No wheezes or rhonchi. No chest wall tenderness is noted on palpation or with deep breathing. HEART: Regular rate and rhythm without murmurs, rubs or gallops. S1 and S2 heard. ABDOMEN: Soft, obese, elderly distended, nontender. Bowel sounds are heard. Hepatomegaly. EXTREMITIES: Significant 2 to 3 + plus pitting edema , with significant redness noted to the left lower extremity suggestive of cellulitis VASCULAR: Radial and dorsalis pedis pulses palpated, no evidence of clubbing. NEUROLOGIC: Patient is awake, alert and oriented x3. - Labs CBC & Chem 7: 01/22/19 05:37 01/22/19 05:37 Labs: Abnormal Lab Results - Last 24 Hours (Table) 01/21/19 01/21/19 01/21/19 Range/Units 11:35 11:35 11:35 WBC 18.8 H (3.8-10.6) k/uL RDW 16.7 H (11.5-15.5) % Plt Count 142 L (150-450) k/uL Neutrophils # 16.7 H (1.3-7.7) k/uL PT 42.5 H (9.0-12.0) sec INR 4.4 H (<1.2) APTT 33.2 H (22.0-30.0) sec ABG pCO2 (35-45) mmHg ABG pO2 (83-108) mmHg ABG HCO3 (21-25) mmol/L ABG Total CO2 (19-24) mmol/L Sodium 135 L (137-145) mmol/L Potassium 5.5 H (3.5-5.1) mmol/L Carbon Dioxide 16 L (22-30) mmol/L BUN 81 H (9-20) mg/dL Creatinine 3.38 H (0.66-1.25) mg/dL Plasma Lactic Acid Dario (0.7-2.0) mmol/L Total Bilirubin 5.8 H (0.2-1.3) mg/dL AST 2320 H (17-59) U/L ALT 1914 H (21-72) U/L Alkaline Phosphatase 127 H (38-126) U/L Troponin I (0.000-0.034) ng/mL Total Protein (6.3-8.2) g/dL Albumin (3.5-5.0) g/dL HDL Cholesterol (40-60) mg/dL TSH 10.800 H (0.465-4.680) mIU/L Free T3 pg/mL 2.0 L (2.8-5.3) pg/ml 01/21/19 01/21/19 01/21/19 Range/Units 11:35 11:35 16:05 WBC (3.8-10.6) k/uL RDW (11.5-15.5) % Plt Count (150-450) k/uL Neutrophils # (1.3-7.7) k/uL PT (9.0-12.0) sec INR (<1.2) APTT (22.0-30.0) sec ABG pCO2 27 L (35-45) mmHg ABG pO2 78 L (83-108) mmHg ABG HCO3 17 L (21-25) mmol/L ABG Total CO2 18 L (19-24) mmol/L Sodium (137-145) mmol/L Potassium (3.5-5.1) mmol/L Carbon Dioxide (22-30) mmol/L BUN (9-20) mg/dL Creatinine (0.66-1.25) mg/dL Plasma Lactic Acid Dario 3.3 H* (0.7-2.0) mmol/L Total Bilirubin (0.2-1.3) mg/dL AST (17-59) U/L ALT (21-72) U/L Alkaline Phosphatase (38-126) U/L Troponin I 0.324 H* (0.000-0.034) ng/mL Total Protein (6.3-8.2) g/dL Albumin (3.5-5.0) g/dL HDL Cholesterol (40-60) mg/dL TSH (0.465-4.680) mIU/L Free T3 pg/mL (2.8-5.3) pg/ml 01/21/19 01/21/19 01/21/19 Range/Units 16:28 16:28 22:31 WBC (3.8-10.6) k/uL RDW (11.5-15.5) % Plt Count (150-450) k/uL Neutrophils # (1.3-7.7) k/uL PT (9.0-12.0) sec INR (<1.2) APTT (22.0-30.0) sec ABG pCO2 (35-45) mmHg ABG pO2 (83-108) mmHg ABG HCO3 (21-25) mmol/L ABG Total CO2 (19-24) mmol/L Sodium (137-145) mmol/L Potassium (3.5-5.1) mmol/L Carbon Dioxide (22-30) mmol/L BUN (9-20) mg/dL Creatinine (0.66-1.25) mg/dL Plasma Lactic Acid Dario 2.4 H* (0.7-2.0) mmol/L Total Bilirubin (0.2-1.3) mg/dL AST (17-59) U/L ALT (21-72) U/L Alkaline Phosphatase (38-126) U/L Troponin I 0.240 H* 0.202 H* (0.000-0.034) ng/mL Total Protein (6.3-8.2) g/dL Albumin (3.5-5.0) g/dL HDL Cholesterol (40-60) mg/dL TSH (0.465-4.680) mIU/L Free T3 pg/mL (2.8-5.3) pg/ml 01/22/19 01/22/19 01/22/19 Range/Units 05:37 05:37 05:37 WBC 20.7 H (3.8-10.6) k/uL RDW 16.6 H (11.5-15.5) % Plt Count 120 L (150-450) k/uL Neutrophils # 18.5 H (1.3-7.7) k/uL PT 48.2 H (9.0-12.0) sec INR 5.0 H (<1.2) APTT (22.0-30.0) sec ABG pCO2 (35-45) mmHg ABG pO2 (83-108) mmHg ABG HCO3 (21-25) mmol/L ABG Total CO2 (19-24) mmol/L Sodium 136 L (137-145) mmol/L Potassium 5.3 H (3.5-5.1) mmol/L Carbon Dioxide 16 L (22-30) mmol/L BUN 92 H (9-20) mg/dL Creatinine 3.08 H (0.66-1.25) mg/dL Plasma Lactic Acid Dario (0.7-2.0) mmol/L Total Bilirubin 4.8 H (0.2-1.3) mg/dL AST 1420 H (17-59) U/L ALT 1689 H (21-72) U/L Alkaline Phosphatase (38-126) U/L Troponin I (0.000-0.034) ng/mL Total Protein 5.9 L (6.3-8.2) g/dL Albumin 3.1 L (3.5-5.0) g/dL HDL Cholesterol 21 L (40-60) mg/dL TSH (0.465-4.680) mIU/L Free T3 pg/mL (2.8-5.3) pg/ml Microbiology - Last 24 Hours (Table) 01/21/19 18:50 Gram Stain - Preliminary Leg - Left Wound Culture - Preliminary 01/21/19 18:50 Skin Fungal Culture - Preliminary Skin Scrapings 01/21/19 18:50 Anaerobic Culture - Preliminary Leg - Left Assessment and Plan Plan: Assessment and plan #1 systolic congestive heart failure acute on chronic, documented ejection fraction in February 2000 1820-25% #2 Cellulitis of the left lower extremity #3 Leukocytosis, elevated plasma lactic acid, secondary to sepsis #4 Hypertension #5 Dyslipidemia #6 elevated troponins not indicative of an acute coronary event may be related to sepsis #7 Acute on chronic renal failure #8 Morbid obesity, BMI 51 #9 paroxysmal atrial fibrillation on Coumadin for anticoagulation, INR is supratherapeutic, likely secondary to liver congestion congestive cardiac failure. #10 abnormal liver enzymes likely secondary to congestion #11 hypothyroidism, TSH 10.8 #12 elevated liver enzymes, hepatitis A and B-. #13hypokalemia Plan Echocardiogram with Doppler study has been performed but is yet pending the pa tient on current dose of IV Lasix. Continue to hold Coumadin. Monitor lytes BUN and creatinine daily DNP note has been reviewed, I agree with a documented findings and plan of care. Patient was seen and examined.
--- NOTE | 2019-01-22 11:19 | P.NPCON ---
History of Present Illness - Reason for Consult acute renal failure, chronic renal failure - History of Present Illness Reason for consultation: Acute kidney injury on chronic kidney disease History of present illness: Patient is a 63-year-old male seen in consultation for acute kidney injury on chronic kidney disease. Patient has chronic kidney disease stage III. Baseline creatinine in the range of 1.2-1.4. Etiology is cardiorenal syndrome. Patient presented to the hospital with dyspnea. Creatinine was 3.38 on admission and is 3.0 today. He is currently maintained on Lasix 40 mg IV every 8 hours. Dyspnea has improved. Still quite edematous. No vomiting or diarrhea. No history of diabetes. Denies use of nonsteroidals. No family history of renal disease. Oral intake is good. Hemodynamically stable. No chest pain. Patient has history of systolic CHF with ejection fraction of 20-25%. Patient was noted to have urinary retention and had straight catheterization yesterday 1.2 L of urine obtained. Currently has a Sims catheter. He was also on Cardizem drip for A. fib on admission which has not been discontinued. Vital signs are stable. General: The patient appeared well nourished and normally developed. HEENT: Head exam is unremarkable. Neck is without jugular venous distension. LUNGS: Lungs are clear to auscultation and percussion. Breath sounds decreased. HEART: Rate and Rhythm are regular. First and second heart sounds normal. No murmurs, rubs or gallops. ABDOMEN: Bowel sounds present. Obese. Soft. EXTREMITITES: 2+ edema. Past Medical History Past Medical History: Atrial Fibrillation, Coronary Artery Disease (CAD), Ca ncer, Heart Failure, Hyperlipidemia, Hypertension, Myocardial Infarction (PR), Pneumonia, Renal Disease, Thyroid Disorder Additional Past Medical History / Comment(s): Bronchitis, possible PR per EKG, hypothyroid, CKD stage III, bilateral lower extremity venous insufficiency /chronic venous stasis/past cellulitis bilateral lower legs, skin cancer with removals. Last Myocardial Infarction Date:: unkn History of Any Multi-Drug Resistant Organisms: None Reported Past Surgical History: Adenoidectomy, Tonsillectomy Additional Past Surgical History / Comment(s): Bilateral cataract removals/lens implants, skin cancer removals L hand/L shoulder/L ear, midline IV-since removed . Past Anesthesia/Blood Transfusion Reactions: No Reported Reaction Smoking Status: Never smoker - Past Family History Father Family Medical History: CVA/TIA Additional Family Medical History / Comment(s): Father at the age of 90yrs. Mother Family Medical History: Cancer Additional Family Medical History / Comment(s): Mother from cancer (unknown type) at age 80s Medications and Allergies Home Medications Medication Instructions Recorded Confirmed Type Allopurinol [Zyloprim] 300 mg PO DAILY 04/17/17 01/21/19 History Atorvastatin [Lipitor] 20 mg PO HS 04/17/17 01/21/19 History Potassium Chloride ER [K-Dur 20] 20 meq PO DAILY 04/17/17 01/21/19 History Furosemide [Lasix] 40 mg PO DAILY #0 04/20/17 01/21/19 Rx Aspirin 81 mg PO DAILY chew 03/08/18 01/21/19 Rx Spironolactone [Aldactone] 25 mg PO DAILY #30 tab 03/08/18 01/21/19 Rx Levothyroxine Sodium [Synthroid] 25 mcg PO SUMOWEFRSA 01/21/19 01/21/19 History Metoprolol Tartrate [Lopressor] 50 mg PO BID 01/21/19 01/21/19 History Warfarin [Coumadin] 5 mg PO TH 01/21/19 01/21/19 History Warfarin [Coumadin] 7.5 mg PO TUSA 01/21/19 01/21/19 History Allergies Allergy/AdvReac Type Severity Reaction Status Date / Time No Known Allergies Allergy Verified 01/21/19 11:26 Physical Exam Vitals: Vital Signs Temp Pulse Pulse Resp BP BP Pulse Ox 01/22/19 08:13 74 01/22/19 08:03 76 01/22/19 03:06 82 21 01/22/19 03:05 98.6 F 82 21 104/60 93 L 01/22/19 00:00 98.1 F 95 21 99/58 90 L 01/21/19 20:00 98.8 F 112 H 20 113/72 91 L 01/21/19 16:00 97.6 F 94 26 H 127/78 94 L 01/21/19 14:00 98.6 F 103 H 20 106/61 95 01/21/19 13:00 109 H 18 104/56 95 01/21/19 12:52 104/56 01/21/19 12:19 122 H 18 112/100 01/21/19 12:00 122 H 20 96 01/21/19 11:19 129 H 01/21/19 11:17 98.2 F 129 H 24 108/71 93 L Intake and Output 01/21/19 01/22/19 01/22/19 22:59 06:59 14:59 Intake Total 370 Output Total 1200 Balance 370 -1200 Intake: Intake, IV Titration 130 Amount Cefepime 2 gm In Sodium 100 Chloride 0.9% 100 ml @ 200 mls/hr IVPB Q24HR [facility] Rx#:[id number] Diltiazem 125 mg In 30 Sodium Chloride 0.9% 100 ml @ 5 MG/HR 5 mls/hr IV .Q24H [facility] Rx#:[id number] Oral 240 Output: Urine 1200 Straight 1200 Other: Voiding Method Indwelling Catheter Weight 155.5 kg Results - Lab Results Most recent lab results ABG pH 7.41 (7.35-7.45) 01/21/19 16:05 ABG pCO2 27 mmHg (35-45) L 01/21/19 16:05 ABG pO2 78 mmHg (83-108) L 01/21/19 16:05 ABG HCO3 17 mmol/L (21-25) L 01/21/19 16:05 ABG O2 Saturation 95.1 % (94-97) 01/21/19 16:05 Calcium 8.7 mg/dL (8.4-10.2) 01/22/19 05:37 Magnesium 2.0 mg/dL (1.6-2.3) 01/21/19 11:35 01/22/19 05:37 01/22/19 05:37 Assessment and Plan Plan: Assessment: 1. Acute kidney injury mostly prerenal secondary to cardiorenal syndrome and hemodynamic instability. Creatinine 3.38 on admission and is 3.08 today. 2. Chronic kidney disease stage III. Baseline creatinine in the range of 1.2- 1.4. Etiology is cardiorenal syndrome. 3. Dyspnea secondary to volume overload. 4. Acute on chronic systolic CHF with ejection fraction of 20-25%. 5. Metabolic acidosis secondary to acute kidney injury. 6. Lower extremity cellulitis maintained on antibiotics. Infectious disease following. 7. Paroxysmal A. fib. Now rate controlled. 8. Urinary retention. Currently has Sims catheter. Plan: Maintain Lasix 40 mg IV 3 times daily. Add oral sodium bicarbonate. Low-salt diet. Follow-up echocardiogram. Check urinalysis. Check renal ultrasound. Continue to monitor renal function and urine output. Add Flomax. Thank you for the consultation. I will continue to follow the patient with you during his hospital stay.
--- NOTE | 2019-01-22 11:59 | ECHOF ---
Referral Reason:chf MEASUREMENTS -------- HEIGHT: 172.7 cm WEIGHT: 136.1 kg BP: RVIDd: 4.4 cm (< 3.3) IVSd: 1.7 cm (0.6 - 1.1) LVIDd: 5.4 cm (3.9 - 5.3) LVPWd: 1.6 cm (0.6 - 1.1) IVSs: 2.1 cm LVIDs: 5.1 cm LVPWs: 2.2 cm LA Diam: 4.9 cm (2.7 - 3.8) Ao Diam: 3.8 cm (2.0 - 3.7) MV EXCURSION: 24.317 mm (> 18.000) MV EF SLOPE: 115 mm/s (70 - 150) EPSS: 2.7 cm AR PHT: 617 ms RAP: 5.00 mmHg RVSP: 41.05 mmHg FINDINGS -------- Atrial fibrillation. This was a technically difficult study with suboptimal views. The left ventricular size is normal. There is severe concentric left ventricular hypertrophy. Ove rall left ventricular systolic function is severely impaired with, an EF < 20%. The right ventricle is severely enlarged. The left atrium is moderately dilated. The right atrium was not well visualized. Lumason used The aortic valve is trileaflet and appears structurally normal. Mild mitral regurgitation is present. Mild tricuspid regurgitation present. There is mild pulmonary hypertension. The right ventricular systolic pressure, as measured by Doppler, is 41.05mmHg. The pulmonic valve was not well visualized. The aortic root is dilated measuring 3.8cm. IVC Not well visulized. There is a small pericardial effusion located near the left ventricle. CONCLUSIONS -------- 1. Atrial fibrillation. 2. This was a technically difficult study with suboptimal views. 3. The left ventricular size is normal. 4. There is severe concentric left ventricular hypertrophy. 5. Overall left ventricular systolic function is severely impaired with, an EF < 20%. 6. The right ventricle is severely enlarged. 7. The left atrium is moderately dilated. 8. The right atrium was not well visualized. 9. Lumason used 10. The aortic valve is trileaflet and appears structurally normal. 11. Mild mitral regurgitation is present. 12. Mild tricuspid regurgitation present. 13. There is mild pulmonary hypertension. 14. The right ventricular systolic pressure, as measured by Doppler, is 41.05mmHg. 15. The pulmonic valve was not well visualized. 16. The aortic root is dilated measuring 3.8cm. 17. IVC Not well visulized. 18. There is a small pericardial effusion located near the left ventricle. PRESS CLIPPER: Rae Marcial RDCS
[2019-01-22 13:13] LABS: Appearance,Urine Turbid (Clear); Bacteria,Urine Many /hpf; Bilirubin,Urine Negative (Negative); Blood,Urine Moderate (Negative); Color,Urine Dark Brown; Glucose,Urine (UA) Negative (Negative); Ketones,Urine Negative (Negative); Leukocyte Esterase,Urine Large (Negative); Mucus,Urine Occasional /hpf; Nitrite,Urine Negative (Negative); Protein,Urine 1+ (Negative); RBC,Urine >182 /hpf (0-5); Specific Gravity,Urine 1.019 (1.001-1.035); Squamous Epithelial Cell,Urine 1 /hpf (0-4); WBC,Urine >182 /hpf (0-5)
[2019-01-22] MEDS: SODIUM BICARBONATE TAB 650 MG TAB PO SCH ×2 (14:36→21:27)
--- NOTE | 2019-01-22 15:30 | CONS ---
CONSULTATION PULMONARY/CRITICAL CARE CONSULTATION: DATE OF SERVICE: 01/22/2019 This is a 63-year-old male who was admitted to the hospital back on January 21. He apparently came into the emergency room with complaints of shortness of breath. He was brought in by EMS. He apparently had not been feeling well for some time and because things were not get any better, he decided to come in to be evaluated. Anyway, he has been having issues for a couple weeks prior to admission. He noticed increasing shortness of breath. He states he could not lie flat. In addition, he noted that his weight had increased and he developed significant lower extremity edema and quite significant erythema of the left lower extremity. For that reason, he came in to be evaluated. He denies any cough. There is no phlegm. There is no fever or chills. Denies any chest pain or chest discomfort. He is a lifelong nonsmoker. Has no history of any lung issues. 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 Does not see a lung doctor. No history of any lung issues. His chest x-ray is consistent with fluid overload/CHF and his N terminal proBNP was quite elevated suggesting congestive heart failure. On his most recent echocardiogram, his cardiac function included ejection fraction of only 25% suggesting heart failure with reduced ejection fraction, otherwise known as systolic congestive heart failure. Currently, he is doing reasonably well. States he is feeling a bit better. His home medications include Zyloprim, Lipitor, potassium chloride, levothyroxine, metoprolol, Coumadin, Lasix, aspirin, and Aldactone. ALLERGIES: Denied. PAST MEDICAL HISTORY: Includes CAD, heart failure which is systolic in nature, hyperlipidemia, hypertension and hypothyroidism. He also apparently has a history of gout and history of acute renal failure. SURGICAL HISTORY: Includes adenoidectomy, tonsillectomy, and cataract removal. SOCIAL HISTORY: Negative tobacco use. Denies any alcohol use or illicit drug use. FAMILY HISTORY: Positive for a father with history of CVA and mother with a history of cancer. REVIEW OF SYSTEMS: CONSTITUTIONAL: Weakness. NEUROLOGIC: Negative. HEENT: Negative. CARDIOVASCULAR: Negative. PULMONARY: Shortness of breath, GI: Negative. : Negative. RHEUMATOLOGIC: Negative. IMMUNOLOGIC: Negative. ENDOCRINOLOGIC: Negative. DERMATOLOGIC: Negative. Current vital signs are reviewed, temperature is 98.6, heart rate 74, respiratory rate 21, blood pressure 104/60, mean 74 and saturations are 95% on 2 L nasal cannula. Appears in no acute distress. There is no conversational dyspnea. No use of accessory muscles. HEENT: Examination is grossly unremarkable. Mucous membranes are moist. Nasal O2 noted. NECK: Supple. Full range of motion. No adenopathy, thyromegaly or neck vein distention. CARDIOVASCULAR: Examination reveals distant heart sounds. Heart rate about mid 80s. S1, S2 normal. A soft systolic murmur is noted. LUNGS: Reveal some bibasilar crackles. No wheezes or rhonchi. Breath sounds are diminished throughout. Breath sounds are equal bilaterally. ABDOMEN: Obese. Bowel sounds are heard. EXTREMITIES: Reveal significant lower extremity edema. There is chronic venostasis changes and hyperpigmentation. The left lower extremity is quite erythematous and hyperemic. SKIN: Without rash. Nails reveals evidence of onychomycosis. NEUROLOGIC: Examination is brief but nonfocal. The patient's chest x-ray is consistent with fluid overload. LABORATORY DATA: Includes a white count of 20.7, hemoglobin 14.3, hematocrit 45.4, platelet count 120,000. PT, INR of 40.2 and 5.0. Blood gas showing a pO2 of 78, a pCO2 of 27, and a pH of 7.41. This is consistent with a mixed acid-base disturbance including a respiratory alkalosis and metabolic acidosis with a normal pH. Yesterday, a blood gas was done on 35%. Sodium 136, potassium 5.3, chloride is 105, CO2 is 16, anion gap is 15. BUN and creatinine were 92 and 3.08. His previous BUN and creatinine were 81 and 3.38. This is consistent with an anion gap metabolic acidosis. His liver function tests were off. AST was 1420, ALT 1689. Those numbers are bit improved. Total bilirubin is 4.8. Troponin was 0.202. N terminal proBNP 47,500. TSH is elevated suggesting that he is not taking his thyroid hormone replacement or that his dose is too small. ASSESSMENT: 1. Acute on chronic systolic congestive heart failure (heart failure with reduced ejection fraction, HFREF). 2. No evidence of any pulmonary disease and the patient is a lifelong nonsmoker. 3. Obesity. 4. History of coronary artery disease. 5. History of hyperlipidemia. 6. Hypertension. 7. Hypothyroidism. 8. History of gout. 9. Significant lower extremity edema without evidence of deep venous thrombosis. 10.Coumadin-induced coagulopathy. PLAN: The patient's thyroid hormone needs to be replaced. He is definitely hypothyroid at this point. I am not sure if it is because he not taking his thyroid hormone or his dose is too small. Heart failure treatment as per Cardiology. His pulmonary status is stable. He does not appear to have any intrinsic pulmonary disease. Most of what we see on chest x-ray is fluid overload. He is getting appropriate treatment for that. Additional recommendations and suggestions are forthcoming. Doppler of the left lower extremity were negative. Will continue to follow as needed. Medications are reviewed. MMODL / IJN: [id number] / MTDD
--- NOTE | 2019-01-22 16:48 | US ---
EXAMINATION TYPE: US kidneys/renal and bladder DATE OF EXAM: 01/22/2019 COMPARISON: NONE CLINICAL HISTORY: jhony. morbidly obese patient EXAM MEASUREMENTS: Right Kidney: 9.6 x 4.3 x 5.7 cm Left Kidney: 10.9 x 5.0 x 6.5 cm Right Kidney: difficult to visualize, appears wnl Left Kidney: difficult to visualize, appears wnl Bladder: not distended IMPRESSION: Visualized kidneys appear unremarkable. There are limitations on the exam
--- NOTE | 2019-01-22 17:24 | PN ---
PROGRESS NOTE DATE OF SERVICE: 01/22/2019 REASON FOR FOLLOWUP: Sepsis and left lower extremity cellulitis. INTERVAL HISTORY: The patient is currently afebrile. The patient is breathing comfortably. Denies having any chest pain or shortness breath or cough. Denies nausea. No vomiting. No abdominal pain or pain to the left leg area. PHYSICAL EXAMINATION: Blood pressure 84/52 with a pulse of 68, temperature 97.9. He is 93% on 2 L nasal cannula. General description is a middle-aged male lying in bed in no distress. RESPIRATORY SYSTEM: Unlabored breathing. Clear to auscultation anteriorly. HEART: S1, S2. Regular rate and rhythm. ABDOMEN: Soft. No tenderness. Left leg swelling and redness have slightly decreased. LABS: White count is slightly elevated at 20,000 today. Creatinine is still up at 3.08. Blood culture has been negative so far. DIAGNOSTIC IMPRESSION AND PLAN: Patient admitted to hospital with sepsis. Source is acute left lower extremity cellulitis in this patient who did have diffuse swelling and redness. The patient is currently covered with cefepime and clindamycin; to continue while monitoring his clinical course and cultures closely. Advise Hermes wrap to keep some of the swelling down. Will reevaluate the patient tomorrow. MMODL / IJN: [id number] /
--- NOTE | 2019-01-22 18:33 | PN ---
PROGRESS NOTE DATE OF SERVICE: 01/22/2019 This 63-year-old gentleman who was admitted with acute left leg cellulitis and sepsis also had also features of CHF. The patient is being closely monitored at this time. Multiple consultants are following the patient closely. The patient still has significant renal failure, coagulopathy, as well as hepatitis. Bilirubin is 4.8. The trends are stable at this time. The cultures are pending at this time. Patient has been seen by Infectious Disease, also. Past medical history reviewed. REVIEW OF SYSTEMS: CARDIOVASCULAR SYSTEM: No angina, palpitations. RESPIRATORY SYSTEM: Occasional cough, shortness of breath. GI: As mentioned earlier. : As mentioned earlier. NERVOUS SYSTEM: Diffusely weak. CURRENT MEDICATIONS: Reviewed. They include: 1. Aspirin 81 mg daily. 2. Cefepime 2 grams IV daily. 3. Clindamycin 900 mg q.8. 4. Lasix 40 mg IV q.8. 5. Synthroid 25 mcg Sunday, Sunday, Sunday, Sunday, Sunday. 6. Lopressor 50 mg p.o. b.i.d. 7. Nitrostat 0.4 mg sublingually q.5 p.r.n. 8. Sodium bicarb 650 p.o. b.i.d. 9. Saline Flush. PHYSICAL EXAMINATION: Patient is alert, oriented x2. Pulse 68, blood pressure 84/52, respiration 20, temperature 97.9, pulse ox 93% on 2 L. HEENT: Conjunctivae icteric. NECK: No jugular venous distention. CARDIOVASCULAR SYSTEM: S1, S2 muffled. RESPIRATORY SYSTEM: Breath sounds diminished at the bases. A few rhonchi. No crackles. ABDOMEN: Soft, obese. Mild diffuse discomfort. No guarding. No rigidity. No mass palpable. LEGS: Left leg with significant swelling and pain and discharge, tenderness present. NERVOUS SYSTEM: Diffusely weak. LABS: WBC 20.7, hemoglobin 14.3. INR is 5. Sodium 136, potassium 5.3, creatinine 3.08. Bilirubin 4.8. AST is 1420. ALT is 1689. ASSESSMENT: 1. Acute left leg cellulitis with sepsis, present on admission. 2. Congestive heart failure, acute exacerbation, with acute on chronic systolic dysfunction, ejection fraction 20%. 3. Increased white count. 4. Acute hepatitis with elevated AST, ALT, possibly secondary to sepsis or congestive heart failure. 5. Increased bilirubin. 6. Troponin 0.324, indeterminate. 7. Elevated lactic acid secondary to sepsis. 8. Hyperkalemia. 9. Hyponatremia. 10.Acute renal failure; possibly acute tubular necrosis, multifactorial. 11.Possible chronic kidney disease, stage III baseline. 12.Coumadin coagulopathy. 13.Mild thrombocytopenia. 14.Obesity with body mass index of 45.6. 15.History of atrial fibrillation. 16.History of congestive heart failure. 17.Hypertension. 18.Hyperlipidemia. 19.History of pneumonia. 20.History of lower extremity venous insufficiency. 21.Adenoidectomy and tonsillectomy. RECOMMENDATIONS AND DISCUSSION: I recommend to continue current medications, continue with symptomatic treatment. Continue with the broad-spectrum IV antibiotics. As mentioned earlier, abnormal lab values are still persisting at this time. Oxygenation has improved. Multiple consultants are following the patient closely. Prognosis guarded. Further recommendations to follow. CARINE / PATRICIA: [id number] /
--- NOTE | 2019-01-22 21:07 | CONS ---
CONSULTATION REASON FOR CONSULTATION: Elevated LFTs. HISTORY OF PRESENT ILLNESS: The patient is a 63 -year-old white male admitted to the hospital. He presents with shortness of breath, not feeling well for the last 2 weeks duration. He was also complaining of swelling of his left leg for the last 2 weeks. Came to the emergency room and subsequently admitted to the hospital with possible sepsis. The reason we are consulted is because of elevated LFTs. The patient does not have any chronic liver disease. He denies any jaundice or hepatitis in the past. At the time of admission to the hospital, serum transaminases within the range of 2000. The patient denies any new medications that he took recently. He reports no fever, chills, night sweats. He denies any history of alcohol abuse. When he came to the emergency room, his serum transaminases were elevated with AST at 2320 and ALT is 914, and T-bilirubin is 5.8. Also, BUN and creatinine elevated at 91 and 3.3 respectively. PAST MEDICAL HISTORY: Past medical history is significant for atrial fibrillation, history of coronary artery disease, congestive heart failure, hypertension, hyperlipidemia, status post OR. MEDICATIONS: At home include Coumadin, Synthroid, Aldactone, K-Dur, Lopressor, Lasix, Lipitor, aspirin, and Zyloprim. ALLERGIES: None. SOCIAL HISTORY: No smoking. No alcohol use. FAMILY HISTORY: Father had CVA and TIA. REVIEW OF SYSTEMS: CARDIOPULMONARY: He denies any chest pain. He does complain shortness of breath. no dysuria or hematuria. MUSCULOSKELETAL unremarkable. SKIN unremarkable other than the cellulitis involving the left lower extremity. NEUROLOGICAL: Unremarkable. PSYCHIATRIC: Unremarkable. ENT/VISION: Unremarkable. CONSTITUTIONAL: No recent weight loss. No fevers, chills or night sweats. PHYSICAL EXAMINATION: On physical examination, he appears comfortable. No apparent distress. VITAL SIGNS: Stable. Blood pressure is 80/52, pulse is 68, temperature 97.9. HEENT examination unremarkable. Conjunctivae pink. Sclerae anicteric. Oral cavity no lesions. NECK: No JVD or lymph node enlargement. CHEST: Clear to auscultation. Heart: Regular rate and rhythm. ABDOMEN: Soft, nontender, nondistended. Bowel sounds are positive. No organomegaly. EXTREMITIES: Severe cellulitis involving the left lower extremity. NEUROLOGIC: Alert and oriented x3. No focal deficits. LABS: At the time of admission to the hospital: WBC 18.8, hemoglobin 15.7, platelets 142. INR is 4.4, sodium 135, potassium 5.5, CO2 16, chloride 103, BUN 81, creatinine 3.38. Lactic acid was 3.5. T-bilirubin was 5.8, AST 2320, ALT 9.4, alkaline phosphatase 127. Troponin was 0.3. Today AST is down to 1420, ALT is down to 1689 and bilirubin is 4.8. Hepatitis serologies for A, B and C negative. IMPRESSION: 1. This is a patient who presents to the hospital with progressive shortness of breath for the last 2 weeks duration, not feeling well and cellulitis of the left lower extremity. Presently admitted to hospital with leukocytosis and possible sepsis. Presently on broad-spectrum antibiotics and Infectious Disease is following the patient closely. 2. Acute elevated serum transaminases consistent with acute hepatocellular injury most likely related to hemodynamic instability causing ischemic hepatitis. This could be related to hypoperfusion from history of congestive heart failure. His serum transaminases have significantly improved today. The patient states that he does not have any underlying chronic liver disease, but this cannot be entirely excluded. Hepatitis serologies for A, B and C were negative. 3. Acute kidney injury superimposed on chronic kidney disease. Nephrology following the patient closely. RECOMMENDATIONS: 1. Avoid any toxic metabolic medications. 2. Monitor serum transaminases on a daily basis. 3. We will await the results of the ultrasound of the liver. 4. At this time, we will follow the labs very closely. Thank you for this consultation. MMGREGGL / IJN: [id number] /
[2019-01-23] MEDS: CLINDAMYCIN 900 MG in DEXTROSE 5% IN WATER 50 ML IVPB SCH ×8 (00:18→23:07)
[2019-01-23] MEDS: FUROSEMIDE 10 MG/ML 4 ML VIAL IV SCH ×2 (00:18→09:33)
[2019-01-23 07:29] LABS: Albumin 3.1 g/dL (3.5-5.0); Calcium 8.3 mg/dL (8.4-10.2); Magnesium 2.5 mg/dL (1.6-2.3); Potassium 5.3 mmol/L (3.5-5.1); Total Bilirubin 3.7 mg/dL (0.2-1.3)
[2019-01-23 07:35] LABS: Prothrombin Time 95.3 sec (9.0-12.0)
[2019-01-23 07:42] LABS: INR 9.7 (<1.2)
[2019-01-23] MEDS ORDERED: PHYTONADIONE ORAL 5 MG/5 ML ORAL.SYRG PO STA (07:56)
[2019-01-23] MEDS: SODIUM BICARBONATE TAB 650 MG TAB PO SCH ×3 (08:59→21:11)
[2019-01-23] MEDS: ASPIRIN 81 MG PO SCH (08:59)
[2019-01-23] MEDS: METOPROLOL TARTRATE 50 MG TAB PO SCH ×2 (08:59→21:04)
[2019-01-23] MEDS: CEFEPIME 2 GM in SODIUM CHLORIDE 0.9% 100 ML IVPB SCH (10:18)
--- NOTE | 2019-01-23 11:19 | P.PN ---
Subjective Patient is seen in follow-up for acute kidney injury on chronic kidney disease. Patient has chronic kidney disease stage III with baseline creatinine in the range of 1.2-1.4. Renal function is worse today. Creatinine 3.77. He is maintained on Lasix 40 mg IV 3 times daily. Urine output documented is 1.1 L. He has a Sims catheter. Denies chest pain or shortness of breath. Vital signs are stable. General: The patient appeared well nourished and normally developed. HEENT: Head exam is unremarkable. Neck is without jugular venous distension. LUNGS: Lungs are clear to auscultation and percussion. Breath sounds decreased. HEART: Rate and Rhythm are regular. First and second heart sounds normal. No murmurs, rubs or gallops. ABDOMEN: Abdominal exam reveals normal bowel sounds. Non-tender and non- distended. No evidence of peritonitis. EXTREMITITES: 1+ edema. Wrapped. Objective - Vital Signs Vital signs: Vital Signs Temp 97.4 F L 01/23/19 08:00 Pulse 62 01/23/19 08:00 Resp 20 01/23/19 08:00 BP 98/62 01/23/19 08:00 Pulse Ox 94 L 01/23/19 09:26 Intake & Output 01/22/19 01/23/19 01/23/19 18:59 06:59 18:59 Intake Total 720 120 Output Total 500 625 Balance 220 -625 120 Weight 155.5 kg 156 kg Intake: Oral 720 120 Output: Urine 500 625 Other: Voiding Method Indwelling Catheter Indwelling Catheter Indwelling Catheter - Labs CBC & Chem 7: 01/22/19 05:37 01/23/19 05:59 Labs: Abnormal Lab Results - Last 24 Hours (Table) 01/22/19 01/23/19 01/23/19 Range/Units 12:26 05:59 05:59 PT 95.3 H (9.0-12.0) sec INR 9.7 H* (<1.2) Sodium 132 L (137-145) mmol/L Potassium 5.3 H (3.5-5.1) mmol/L Carbon Dioxide 14 L (22-30) mmol/L BUN 108 H* (9-20) mg/dL Creatinine 3.77 H (0.66-1.25) mg/dL Calcium 8.3 L (8.4-10.2) mg/dL Magnesium 2.5 H (1.6-2.3) mg/dL Total Bilirubin 3.7 H (0.2-1.3) mg/dL AST 1734 H (17-59) U/L ALT 2214 H (21-72) U/L Alkaline Phosphatase 133 H (38-126) U/L Total Protein 6.0 L (6.3-8.2) g/dL Albumin 3.1 L (3.5-5.0) g/dL Urine Protein 1+ H (Negative) Urine Blood Moderate H (Negative) Ur Leukocyte Esterase Large H (Negative) Urine RBC >182 H (0-5) /hpf Urine WBC >182 H (0-5) /hpf Urine WBC Clumps Many H (None) /hpf Urine Bacteria Many H (None) /hpf Urine Mucus Occasional H (None) /hpf Microbiology - Last 24 Hours (Table) 01/21/19 18:50 Gram Stain - Preliminary Leg - Left Wound Culture - Preliminary Presumptive Staph aureus Beta Hemolytic Strep Group G 01/21/19 16:28 Blood Culture - Preliminary Blood No Growth after 24 hours 01/21/19 11:35 Blood Culture - Preliminary Blood No Growth after 24 hours Assessment and Plan Plan: Assessment: 1. Acute kidney injury mostly prerenal secondary to cardiorenal syndrome and hemodynamic instability. Renal function worse today. Creatinine 3.77. 2. Chronic kidney disease stage III. Baseline creatinine in the range of 1.2- 1.4. Etiology is cardiorenal syndrome. 3. Dyspnea secondary to volume overload. Better. 4. Acute on chronic systolic CHF with ejection fraction of <20%. 5. Metabolic acidosis secondary to acute kidney injury. 6. Lower extremity cellulitis maintained on antibiotics. Infectious disease following. 7. Paroxysmal A. fib. Now rate controlled. 8. Urinary retention. Currently has Sims catheter. 9. Transaminitis possibly from hypoperfusion. GI following. Plan: Hold evening dose of Lasix. Increase dose of oral sodium bicarbonate. Low-salt diet. Repeat chest x-ray today. Check urine culture. Check urine eosinophils.
--- NOTE | 2019-01-23 11:33 | XR ---
EXAMINATION TYPE: XR chest 1V DATE OF EXAM: 01/23/2019 HISTORY: Shortness of breath. COMPARISON: 01/21/19 TECHNIQUE: Single view of the chest is submitted. FINDINGS: Demonstrated are scattered senescent parenchymal change. There is no evidence for focal infiltrate. The heart is enlarged. Pulmonary venous congestion with mild congestive failure suggested. Hilar and mediastinal structures are within normal limits. Degenerative changes are seen of the dorsal spine. IMPRESSION: 1. The heart is enlarged. Pulmonary venous congestion with mild congestive failure suggested.
--- NOTE | 2019-01-23 12:27 | P.PN ---
Subjective Progress Note Date: 01/23/19 This is a 63-year-old gentleman with history of hyperlipidemia, hypertension, morbid obesity, chronic diastolic heart failure, follows with Dr. Goodwin in the office. We had seen the patient in consultation back in February 2018. Patient is very unkempt, very unclean, does not have a bath or shower on a regular basis. He presented to the hospital on this admission with symptoms of progressively worsening shortness of breath which she states has been going on for at least a month but over the past few days extremely worse. He also has noticed significant swelling in both of his lower extremities, his left lower extremity is not only swollen but was extremely red and tender. Chest x-ray showed moderate cardiomegaly, interstitial prominence suggesting pulmonary vascular congestion. EKG on presentation here showed a sinus tachycardia with left bundle pattern, similar to EKGs when the patient was in the hospital approximately a year ago. Blood pressure 106/60, heart rate 103, 95% on room air. White blood cell count 18.8, hemoglobin 15.7, platelet count 142. INR 4.4. Sodium 135, potassium 5.5, BUN 81, creatinine 3.3, plasma lactic acid 3.3, magnesium 2.0, total bilirubin 5.8, AST 2320, ALT 1914, alk phos 127, troponin 0.3-4. BNP level 47,500. TSH level X.8 free T4 1.8 and free T3 2 .0. Hepatitis a and B-. 01/22/2019 Patient was seen and examined this morning, he does state that he is feeling mildly better than yesterday. He has been putting out urine, although his weight according to the documentation. Blood pressure 104/60 with a heart rate in the 70s to 80s, 93% on a Ventimask. Venous duplex study was performed which was negative for an acute DVT in the left lower extremity. Ultrasound of the gallbladder was also performed which was a very limited exam because of the patient's body habitus, there is borderline hepatomegaly and somewhat hypoactive. The liver correlate to exclude hepatitis. Questionable visualization of a nondistended gallbladder. Currently on Lasix 40 mg IV every 8 hourly. White blood cell count 20.7, ENA globin 14.3, platelet count 120. Pro time 40.2 with an INR 5.0. Sodium 136, potassium 5.3, BUN 92 and creatinine 3.08. 01/23/2019 Patient was seen and examined this morning, denies any shortness of breath but appears to be quite short of breath. Blood pressure 104/70 with a heart rate in the 70s, 96% on 4 L of oxygen. Labs from today look considerably worse than yesterday overall. His pro time today is 95.3 with an INR of 9.7. Sodium 132, potassium 5.3, BUN 108, creatinine 3.7. Magnesium 2.5, total bilirubin 3.7, AST 1734, ALT 2214, alk phos 133. Albumin 3.1 today, total protein 6.0. Patient has been on IV Lasix 40 mg 3 times a day, patient was seen today by nephrology who recommended that the dose of Lasix for this evening be held. Objective - Vital Signs Vital signs: Vital Signs Temp 97.9 F 01/23/19 12:00 Pulse 74 01/23/19 12:00 Resp 21 01/23/19 12:00 BP 104/72 01/23/19 12:00 Pulse Ox 96 01/23/19 12:00 Intake & Output 01/22/19 01/23/19 01/23/19 18:59 06:59 18:59 Intake Total 720 360 Output Total 500 625 Balance 220 -625 360 Weight 155.5 kg 156 kg Intake: Oral 720 360 Output: Urine 500 625 Other: Voiding Method Indwelling Catheter Indwelling Catheter Indwelling Catheter # Voids 0 - Exam GENERAL: This is a 62-year-old male in no apparent distress at the time of my examination. Morbid obesity. HEENT: Head is atraumatic, normocephalic. Pupils are equal, round. Sclerae anicteric. Conjunctivae are clear. Mucous membranes of the mouth are moist. Neck is supple. There is jugular venous distention although difficult to assess secondary to body habitus. No carotid bruit is heard. LUNGS: Bibasilar rales. No wheezes or rhonchi. No chest wall tenderness is noted on palpation or with deep breathing. HEART: Regular rate and rhythm without murmurs, rubs or gallops. S1 and S2 heard. ABDOMEN: Soft, obese, elderly distended, nontender. Bowel sounds are heard. Hepatomegaly. EXTREMITIES: Significant 2 to 3 + plus pitting edema , with significant redness noted to the left lower extremity suggestive of cellulitis VASCULAR: Radial and dorsalis pedis pulses palpated, no evidence of clubbing. NEUROLOGIC: Patient is awake, alert and oriented x3. - Labs CBC & Chem 7: 01/22/19 05:37 01/23/19 05:59 Labs: Abnormal Lab Results - Last 24 Hours (Table) 01/22/19 01/23/19 01/23/19 Range/Units 12:26 05:59 05:59 PT 95.3 H (9.0-12.0) sec INR 9.7 H* (<1.2) Sodium 132 L (137-145) mmol/L Potassium 5.3 H (3.5-5.1) mmol/L Carbon Dioxide 14 L (22-30) mmol/L BUN 108 H* (9-20) mg/dL Creatinine 3.77 H (0.66-1.25) mg/dL Calcium 8.3 L (8.4-10.2) mg/dL Magnesium 2.5 H (1.6-2.3) mg/dL Total Bilirubin 3.7 H (0.2-1.3) mg/dL AST 1734 H (17-59) U/L ALT 2214 H (21-72) U/L Alkaline Phosphatase 133 H (38-126) U/L Total Protein 6.0 L (6.3-8.2) g/dL Albumin 3.1 L (3.5-5.0) g/dL Urine Protein 1+ H (Negative) Urine Blood Moderate H (Negative) Ur Leukocyte Esterase Large H (Negative) Urine RBC >182 H (0-5) /hpf Urine WBC >182 H (0-5) /hpf Urine WBC Clumps Many H (None) /hpf Urine Bacteria Many H (None) /hpf Urine Mucus Occasional H (None) /hpf Microbiology - Last 24 Hours (Table) 01/21/19 18:50 Gram Stain - Preliminary Leg - Left Wound Culture - Preliminary Presumptive Staph aureus Beta Hemolytic Strep Group G 01/21/19 16:28 Blood Culture - Preliminary Blood No Growth after 24 hours 01/21/19 11:35 Blood Culture - Preliminary Blood No Growth after 24 hours Assessment and Plan Plan: Assessment and plan #1 systolic congestive heart failure acute on chronic, documented ejection fraction in February [id number]% #2 Cellulitis of the left lower extremity #3 Leukocytosis, elevated plasma lactic acid, secondary to sepsis #4 Hypertension #5 Dyslipidemia #6 elevated troponins not indicative of an acute coronary event may be related to sepsis #7 Acute on chronic renal failure #8 Morbid obesity, BMI 51 #9 paroxysmal atrial fibrillation on Coumadin for anticoagulation, INR is supratherapeutic, likely secondary to liver congestion congestive cardiac failure. #10 abnormal liver enzymes likely secondary to congestion #11 hypothyroidism, TSH 10.8 #12 elevated liver enzymes, hepatitis A and B-. #13hypokalemia Plan Cardiogram with Doppler study revealed an ejection fraction of less than 20%, recommendations from nephrology is to hold evening dose of Lasix and recheck her labs in the morning. Patient is also receiving a dose of vitamin K for the elevated INR. DNP note has been reviewed, I agree with a documented findings and plan of care. Patient was seen and examined.
--- NOTE | 2019-01-23 12:54 | P.PN ---
Subjective Progress Note Date: 01/23/19 Principal diagnosis: Shortness of breath related to acute on chronic congestive heart failure with systolic dysfunction On 01/23/2019 patient seen in follow-up on selective care unit, he is awake and alert, in no acute distress, still has [id number] conversational dyspnea, and dyspnea with any exertion, but no acute distress. Patient is on a combination of cefepime and clindamycin for left lower extremity cellulitis. Today's INR is up to 9.7, and patient was given 2.5 mg of oral vitamin K today. Patient's diuretics have been discontinued, he is in -405 mL fluid balance, though has quite significant edema involving his lower extremities and truncal edema, renal function continues to worsen, his BUN is up to 108, and creatinine is 3.77, liver enzymes are elevated, AST is up to 1734, ALT is 2002 114, alk phos is 133, urinalysis showed evidence of infection. Urine culture has not been collected yet, left lower sternal wound culture showed presumptive staph a ureus, and beta hemolytic strep group G. Today's chest x-ray has been reviewed showing continue pulmonary venous congestion with mild congestive heart failure. Objective - Vital Signs Vital signs: Vital Signs Temp 97.9 F 01/23/19 12:00 Pulse 74 01/23/19 12:00 Resp 21 01/23/19 12:00 BP 104/72 01/23/19 12:00 Pulse Ox 96 01/23/19 12:00 Intake & Output 01/22/19 01/23/19 01/23/19 18:59 06:59 18:59 Intake Total 720 360 Output Total 500 625 Balance 220 -625 360 Weight 155.5 kg 156 kg Intake: Oral 720 360 Output: Urine 500 625 Other: Voiding Method Indwelling Catheter Indwelling Catheter Indwelling Catheter # Voids 0 - Exam GENERAL EXAM: Alert, pleasant, 63-year-old white male, on 4 L of oxygen with a pulse ox of 96%, comfortable in no apparent distress. HEAD: Normocephalic/atraumatic. EYES: Normal reaction of pupils, equal size. Conjunctiva pink, sclera white. NOSE: Clear with pink turbinates. THROAT: No erythema or exudates. NECK: No masses, no JVD, no thyroid enlargement, no adenopathy. CHEST: No chest wall deformity. Symmetrical expansion. LUNGS: Equal air entry with diminished breath sounds at the bases, and basilar rales. No wheezes or rhonchi, no chest wall tenderness CVS: Regular rate and rhythm, normal S1 and S2, no gallops, no murmurs, no rubs ABDOMEN: Soft, nontender. No hepatosplenomegaly, normal bowel sounds, no guarding or rigidity. EXTREMITIES: No clubbing, no cyanosis, 2+ pulses and upper and lower extremities. Significant 2-3+ pitting edema, with significant redness and warmth noted to the left lower extremity suggestive of cellulitis MUSCULOSKELETAL: Muscle strength and tone normal. SPINE: No scoliosis or deformity SKIN: No rashes CENTRAL NERVOUS SYSTEM: Alert and oriented -3. No focal deficits, tone is normal in all 4 extremities. PSYCHIATRIC: Alert and oriented -3. Appropriate affect. Intact judgment and insight. - Labs CBC & Chem 7: 01/22/19 05:37 01/23/19 05:59 Labs: Abnormal Lab Results - Last 24 Hours (Table) 01/22/19 01/23/19 01/23/19 Range/Units 12:26 05:59 05:59 PT 95.3 H (9.0-12.0) sec INR 9.7 H* (<1.2) Sodium 132 L (137-145) mmol/L Potassium 5.3 H (3.5-5.1) mmol/L Carbon Dioxide 14 L (22-30) mmol/L BUN 108 H* (9-20) mg/dL Creatinine 3.77 H (0.66-1.25) mg/dL Calcium 8.3 L (8.4-10.2) mg/dL Magnesium 2.5 H (1.6-2.3) mg/dL Total Bilirubin 3.7 H (0.2-1.3) mg/dL AST 1734 H (17-59) U/L ALT 2214 H (21-72) U/L Alkaline Phosphatase 133 H (38-126) U/L Total Protein 6.0 L (6.3-8.2) g/dL Albumin 3.1 L (3.5-5.0) g/dL Urine Protein 1+ H (Negative) Urine Blood Moderate H (Negative) Ur Leukocyte Esterase Large H (Negative) Urine RBC >182 H (0-5) /hpf Urine WBC >182 H (0-5) /hpf Urine WBC Clumps Many H (None) /hpf Urine Bacteria Many H (None) /hpf Urine Mucus Occasional H (None) /hpf Microbiology - Last 24 Hours (Table) 01/21/19 18:50 Gram Stain - Preliminary Leg - Left Wound Culture - Preliminary Presumptive Staph aureus Beta Hemolytic Strep Group G 01/21/19 16:28 Blood Culture - Preliminary Blood No Growth after 24 hours 01/21/19 11:35 Blood Culture - Preliminary Blood No Growth after 24 hours Assessment and Plan Plan: Assessment: #1. Acute exacerbation of chronic systolic congestive heart failure with ejection fraction of 20% #2. Acute left lower extremity cellulitis #3. Morbid obesity #4. Acute hepatitis, with elevated transaminases #5. Elevated troponin #6. Elevated lactic acid possibly related to sepsis #7. Acute kidney injury #8. Chronic kidney disease stage III at baseline #9. Coumadin coagulopathy #10. History of atrial fibrillation on oral anticoagulation #11. Hypertension #12. Hyperlipidemia #13. Hypothyroidism Plan: Continue current medical treatment, patient has history of chronic lung disease, patient's symptoms are consistent with acute exacerbation of chronic systolic congestive heart failure. Cardiology and nephrology are following, diuretics and cardiac meds per cardiology and nephrology recommendations. Today's chest x-ray has been reviewed showing pulmonary venous congestion and changes consistent with mild CHF. No acute distress. We will sign off and follow with the patient on as-needed basis. I performed a history & physical examination of the patient and discussed their management with my nurse practitioner, Winter Nelson. I reviewed the nurse practitioner's note and agree with the documented findings and plan of care. Lung sounds are positive for bibasilar crackles. The findings and the impression was discussed with the patient. I attest to the documentation by the nurse practitioner. Time with Patient: Less than 30
--- NOTE | 2019-01-23 19:25 | PN ---
PROGRESS NOTE DATE OF SERVICE: 01/23/2019 REASON FOR FOLLOWUP: Left lower extremity cellulitis. INTERVAL HISTORY: The patient is currently afebrile. The patient is breathing comfortably. Patient denies having any chest pain or cough. No nausea or vomiting. No abdominal pain or pain to the left leg area. PHYSICAL EXAMINATION: Blood pressure 134/72 with a pulse of 79, temperature of 97.9. He is 96% on 4 L nasal cannula. General description is a middle-aged male up in the chair in no distress. RESPIRATORY SYSTEM: Unlabored breathing. Clear to auscultation anteriorly. HEART: S1, S2. Regular rate and rhythm. ABDOMEN: Soft. No tenderness. Legs are currently wrapped. No obvious drainage on the dressing. LABS: Wound culture with strep and Staph aureus MSSA. DIAGNOSTIC IMPRESSION AND PLAN: Patient with extensive left lower extremity cellulitis in this patient admitted to hospital with sepsis. Blood culture has been negative. Patient is currently covered with cefepime and clindamycin; to continue while monitoring his clinical course closely. Continue with supportive care. MMODL / IJN: [id number] /
--- NOTE | 2019-01-23 20:48 | PN ---
PROGRESS NOTE DATE OF SERVICE: 01/23/2019 The patient is a 63 -year-old pleasant white male, admitted to the hospital with acute left lower leg cellulitis/sepsis and congestive heart failure. The patient presently on broad-spectrum antibiotics and doing better. He was seen on consultation yesterday for acute elevation of serum transaminases with serum ALT and AST in the range of 2000 which were thought to be related to ischemic hepatitis. The patient denies any history of chronic liver disease. Today, he is feeling better. He denies any abdominal pain. No nausea or vomiting. Overall he feels better. PHYSICAL EXAMINATION: He appears comfortable. No apparent distress. VITAL SIGNS: Stable. Blood pressure is 90/60, pulse rate is 79, temperature 98. HEENT examination unremarkable. Conjunctivae pink. Sclerae anicteric. Oral cavity no lesions. Neck no JVD or lymph node enlargement. The chest was clear to auscultation. HEART: Regular rate and rhythm. ABDOMEN: Obese. Bowel sounds are positive. No organomegaly. SKIN no rashes. EXTREMITIES: Cellulitis of the left lower extremity. LABORATORY DATA: Labs from today, CBC not done. INR is 9.7 with a PT of 95, BUN 108, creatinine 3.77. AST 1734, ALT 2214, T-bilirubin 3.7, alkaline phosphatase 133. Hepatitis serologies for A, B and C were negative. IMPRESSION: 1. Acute hepatocellular injury most likely ischemic hepatitis from hemodynamically instability. Serum transaminases improved yesterday but today they have slightly worsened. T- bilirubin is improving. Hepatitis serologies for A, B and C negative. The patient still has periods of intermittent hypertension. 2. Cellulitis of the left lower extremity on broad-spectrum antibiotics. 3. Acute kidney injury with worsening BUN and creatinine being monitored closely by Nephrology. 4. Severe coagulopathy. The patient on Coumadin, which has been on hold. He received vitamin K 2.5 mg this morning. We will repeat INR tomorrow. RECOMMENDATIONS: 1. Monitor liver enzymes on a close basis. 2. Avoid hepatotoxic medications. 3. Agree with vitamin K and repeat INR tomorrow morning. 4. Continue broad-spectrum antibiotics. Thank you for this consultation. We will continue to follow the patient closely with you during his hospital stay. MMODL / IJN: [id number] /
--- NOTE | 2019-01-23 20:53 | P.PN ---
Progress Note - Text Progress Note Date: 01/23/19 Interval history: Patient presents with symptoms of increasing shortness of breath. Also some s welling of the left leg with discoloration. Admitting diagnosis was acute CHF exacerbation and left lower extremity cellulitis. Today-laying in bed. Feels a bit tired. Did tolerate some diet. Had a bowel movement. Review of systems: Was done for constitutional, cardiovascular, GI, pulmonary. relevant finding as above Active Medications Aspirin (Aspirin) 81 mg PO DAILY [facility] Last Admin: 01/23/19 08:59 Dose: 81 mg Documented by: Clindamycin Phosphate 900 mg/ (Dextrose/Water) 56 mls @ 50 mls/hr IVPB Q8HR [facility] Last Admin: 01/23/19 16:19 Dose: 50 mls/hr Documented by: Cefepime HCl 2 gm/ Sodium (Chloride) 100 mls @ 200 mls/hr IVPB Q24HR [facility] Last Admin: 01/23/19 10:18 Dose: 200 mls/hr Documented by: Levothyroxine Sodium (Synthroid) 25 mcg PO [place]EFRSA [facility] Last Admin: 01/22/19 06:16 Dose: Not Given Documented by: Metoprolol Tartrate (Lopressor) 50 mg PO BID [facility] Last Admin: 01/23/19 08:59 Dose: 50 mg Documented by: Nitroglycerin (Nitrostat) 0.4 mg SUBLINGUAL Q5M PRN PRN Reason: Chest Pain Sodium Bicarbonate (Sodium Bicarbonate Tab) 1,300 mg PO TID [facility] Last Admin: 01/23/19 16:18 Dose: 1,300 mg Documented by: Sodium Chloride (Saline Flush) 10 ml IV BID [facility] Last Admin: 01/23/19 16:19 Dose: 10 ml Documented by: Physical examination: VITAL SIGNS: 97.4, 62, 20, 98/62, 85% 4 L GENERAL: BMI 52.3, laying in bed, tired. EYES: Pupils equal. Conjunctiva normal. HEENT: External appearance of nose and ears normal, oral cavity grossly normal. NECK: JVD unable to assess masses not palpable. HEART: First and second heart sounds are normal; some edema. LUNGS:[ Respiratory rate increased, decreased breath sounds. ABDOMEN: Soft, distended, nontender, liver spleen not palpable, no masses palpable. PSYCH: Alert and oriented x3; mood and affect normal. DERMATOLOGICAL: Dressing over the left lower extremity INVESTIGATIONS, reviewed in the clinical context: White count 20.7 hemoglobin 14.3 platelets 120 underwent 0.7 potassium 5.3 bun 108 creatinine 3.77 AST 1734 ALT 2214 albumin 3.1 Previous testing: Troponin I 0.20 to Abdominal ultrasound-unremarkable Venous Doppler-negative for DVT in the left lower extremity 2-D echo-EF less than 20%, severe concentric left medical hypertrophy 2-D echo-borderline hepatomegaly, poor study EKG tracing-PVC with left bundle-branch block, atrial flutter fibrillation Assessment: -Acute on chronic congestive heart failure exacerbation from systolic dysfunction EF 20-25% -Persistent atrial fibrillation/flutter -Left bundle-branch block -Acute ischemic hepatitis from hyortension -Morbid obesity BMI 52.3 -Hypoalbuminemia has an acute phase reactant -Acute left lower extremity cellulitis -Hyperlipidemia -Essential hypertension -Chronic kidney disease stage III from nephrosclerosis at her baseline -Bilateral lower extremity venous insufficiency and chronic venous stasis -Troponin leak from chronic kidney disease, no evidence of acute coronary syndrome -Acute Coumadin toxicity, with no evidence of bleeding in the setting of acute hepatitis Plan: Patient diuretics have been temporarily held. Coumadin has been held. Patient did get 2.5 mg of vitamin K orally today. Patient continues to be on IV clindamycin and cefepime. Care was discussed with the patient.
[2019-01-23] MEDS ORDERED: METOPROLOL TARTRATE 25 MG TAB PO STA (21:03)
[2019-01-24] MEDS: LEVOTHYROXINE 25 MCG TAB PO SCH (06:27)
[2019-01-24 06:49] LABS: INR 3.8 (<1.2); Prothrombin Time 36.5 sec (9.0-12.0)
[2019-01-24 06:56] LABS: Albumin 3.4 g/dL (3.5-5.0); Calcium 8.6 mg/dL (8.4-10.2); Magnesium 2.7 mg/dL (1.6-2.3); Potassium 5.5 mmol/L (3.5-5.1); Total Bilirubin 3.9 mg/dL (0.2-1.3); Total Protein 6.3 g/dL (6.3-8.2)
[2019-01-24] MEDS: ASPIRIN 81 MG PO SCH (08:17)
[2019-01-24] MEDS: SODIUM BICARBONATE TAB 650 MG TAB PO SCH ×3 (08:18→20:56)
[2019-01-24] MEDS: METOPROLOL TARTRATE 50 MG TAB PO SCH ×2 (08:23→20:48)
[2019-01-24] MEDS: DOBUTamine DRIP 500 MG in DEXTROSE/WATER 1 250ML.BAG IV SCH (08:37)
--- NOTE | 2019-01-24 08:51 | P.PN ---
Subjective Patient is seen in follow-up for acute kidney injury on chronic kidney disease. Patient has chronic kidney disease stage III with baseline creatinine in the range of 1.2-1.4. Renal function continues to worsen. Patient remains edematous. Denies chest pain. No vomiting or diarrhea. Oral intake is good. Vital signs are stable. General: The patient appeared well nourished and normally developed. HEENT: Head exam is unremarkable. Neck is without jugular venous distension. LUNGS: Breath sounds decreased. HEART: Rate and Rhythm are regular. First and second heart sounds normal. No murmurs, rubs or gallops. ABDOMEN: Abdominal exam reveals normal bowel sounds. Non-tender and non- distended. No evidence of peritonitis. EXTREMITITES: 1+ edema. Wrapped. Objective - Vital Signs Vital signs: Vital Signs Temp 97.0 F L 01/24/19 07:29 Pulse 62 01/24/19 07:29 Resp 20 01/24/19 07:29 BP 88/62 01/24/19 07:29 Pulse Ox 92 L 01/24/19 07:29 Intake & Output 01/23/19 01/24/19 01/24/19 18:59 06:59 18:59 Intake Total 720 Output Total 200 275 Balance 520 -275 Weight 156.4 kg Intake: Oral 720 Output: Urine 200 275 Other: Voiding Method Indwelling Catheter Indwelling Catheter # Voids 0 # Bowel Movements 1 - Labs CBC & Chem 7: 01/22/19 05:37 01/24/19 06:09 Labs: Abnormal Lab Results - Last 24 Hours (Table) 01/24/19 01/24/19 Range/Units 06:09 06:09 PT 36.5 H (9.0-12.0) sec INR 3.8 H (<1.2) Sodium 132 L (137-145) mmol/L Potassium 5.5 H (3.5-5.1) mmol/L Carbon Dioxide 16 L (22-30) mmol/L BUN 132 H* (9-20) mg/dL Creatinine 4.23 H (0.66-1.25) mg/dL Glucose 105 H (74-99) mg/dL Magnesium 2.7 H (1.6-2.3) mg/dL Total Bilirubin 3.9 H (0.2-1.3) mg/dL AST 1659 H (17-59) U/L ALT 2475 H (21-72) U/L Alkaline Phosphatase 144 H (38-126) U/L Albumin 3.4 L (3.5-5.0) g/dL Microbiology - Last 24 Hours (Table) 01/23/19 16:43 Urine Culture - Preliminary Urine,Catheterized 01/21/19 18:50 Gram Stain - Final Leg - Left Wound Culture - Final Staphylococcus aureus Beta Hemolytic Strep Group G 01/21/19 16:28 Blood Culture - Preliminary Blood No Growth after 48 hours 01/21/19 11:35 Blood Culture - Preliminary Blood No Growth after 48 hours Assessment and Plan Plan: Assessment: 1. Acute kidney injury mostly prerenal secondary to cardiorenal syndrome and hemodynamic instability. Renal function continues to worsen. Creatinine 4.23 today. Urine eosinophils negative. 2. Chronic kidney disease stage III. Baseline creatinine in the range of 1.2- 1.4. Etiology is cardiorenal syndrome. 3. Dyspnea secondary to volume overload. 4. Acute on chronic systolic CHF with ejection fraction of <20%. 5. Metabolic acidosis secondary to acute kidney injury. 6. Lower extremity cellulitis maintained on antibiotics. Infectious disease following. 7. Paroxysmal A. fib. Now rate controlled. 8. Urinary retention. Currently has Sims catheter. 9. Transaminitis possibly from hypoperfusion. GI following. 10. Hyperkalemia secondary to acute kidney injury and metabolic acidosis. Plan: Start dobutamine drip. Start Lasix drip at 5 mL an hour. Maintain oral sodium bicarbonate. Avoid nephrotoxins. Continue to monitor renal function and urine output closely. Case discussed with cardiology.
[2019-01-24] MEDS: CLINDAMYCIN 900 MG in DEXTROSE 5% IN WATER 50 ML IVPB SCH ×4 (08:52→17:02)
[2019-01-24] MEDS: CEFEPIME 2 GM in SODIUM CHLORIDE 0.9% 100 ML IVPB SCH (10:02)
--- NOTE | 2019-01-24 10:47 | P.PN ---
Subjective Progress Note Date: 01/24/19 This is a 63-year-old gentleman with history of hyperlipidemia, hypertension, morbid obesity, chronic diastolic heart failure, follows with Dr. Goodwin in the office. We had seen the patient in consultation back in February 2018. Patient is very unkempt, very unclean, does not have a bath or shower on a regular basis. He presented to the hospital on this admission with symptoms of progressively worsening shortness of breath which she states has been going on for at least a month but over the past few days extremely worse. He also has noticed significant swelling in both of his lower extremities, his left lower extremity is not only swollen but was extremely red and tender. Chest x-ray showed moderate cardiomegaly, interstitial prominence suggesting pulmonary vascular congestion. EKG on presentation here showed a sinus tachycardia with left bundle pattern, similar to EKGs when the patient was in the hospital approximately a year ago. Blood pressure 106/60, heart rate 103, 95% on room air. White blood cell count 18.8, hemoglobin 15.7, platelet count 142. INR 4.4. Sodium 135, potassium 5.5, BUN 81, creatinine 3.3, plasma lactic acid 3.3, magnesium 2.0, total bilirubin 5.8, AST 2320, ALT 1914, alk phos 127, troponin 0.3-4. BNP level 47,500. TSH level X.8 free T4 1.8 and free T3 2 .0. Hepatitis a and B-. 01/22/2019 Patient was seen and examined this morning, he does state that he is feeling mildly better than yesterday. He has been putting out urine, although his weight according to the documentation. Blood pressure 104/60 with a heart rate in the 70s to 80s, 93% on a Ventimask. Venous duplex study was performed which was negative for an acute DVT in the left lower extremity. Ultrasound of the gallbladder was also performed which was a very limited exam because of the patient's body habitus, there is borderline hepatomegaly and somewhat hypoactive. The liver correlate to exclude hepatitis. Questionable visualization of a nondistended gallbladder. Currently on Lasix 40 mg IV every 8 hourly. White blood cell count 20.7, ENA globin 14.3, platelet count 120. Pro time 40.2 with an INR 5.0. Sodium 136, potassium 5.3, BUN 92 and creatinine 3.08. 01/23/2019 Patient was seen and examined this morning, denies any shortness of breath but appears to be quite short of breath. Blood pressure 104/70 with a heart rate in the 70s, 96% on 4 L of oxygen. Labs from today look considerably worse than yesterday overall. His pro time today is 95.3 with an INR of 9.7. Sodium 132, potassium 5.3, BUN 108, creatinine 3.7. Magnesium 2.5, total bilirubin 3.7, AST 1734, ALT 2214, alk phos 133. Albumin 3.1 today, total protein 6.0. Patient has been on IV Lasix 40 mg 3 times a day, patient was seen today by nephrology who recommended that the dose of Lasix for this evening be held. 01/24/2019 Patient seen and examined this morning, still appears to be somewhat short of breath, continues to have significant bilateral peripheral edema. His pro time today is 36.5 with an INR 3.8. Sodium 132, potassium 5.5, BUN 132, creatinine 4.2. Magnesium 2.7, total bilirubin 3.9, AST 1659, ALT 2475, alk phos 144. The patient this morning has been initiated on IV dobutamine, he will also be started today on a Lasix drip. Objective - Vital Signs Vital signs: Vital Signs Temp 97.0 F L 01/24/19 07:29 Pulse 62 01/24/19 07:29 Resp 20 01/24/19 08:00 BP 88/62 01/24/19 07:29 Pulse Ox 92 L 01/24/19 07:29 Intake & Output 01/23/19 01/24/19 01/24/19 18:59 06:59 18:59 Intake Total 720 240 Output Total 200 275 Balance 520 -275 240 Weight 156.4 kg Intake: Oral 720 240 Output: Urine 200 275 Other: Voiding Method Indwelling Catheter Indwelling Catheter Indwelling Catheter # Voids 0 # Bowel Movements 1 - Exam GENERAL: This is a 62-year-old male in no apparent distress at the time of my examination. Morbid obesity. HEENT: Head is atraumatic, normocephalic. Pupils are equal, round. Sclerae anicteric. Conjunctivae are clear. Mucous membranes of the mouth are moist. Neck is supple. There is jugular venous distention although difficult to assess secondary to body habitus. No carotid bruit is heard. LUNGS: Bibasilar rales. No wheezes or rhonchi. No chest wall tenderness is noted on palpation or with deep breathing. HEART: Regular rate and rhythm without murmurs, rubs or gallops. S1 and S2 heard. ABDOMEN: Soft, obese, elderly distended, nontender. Bowel sounds are heard. Hepatomegaly. EXTREMITIES: Significant 2 to 3 + plus pitting edema , with significant redness noted to the left lower extremity suggestive of cellulitis VASCULAR: Radial and dorsalis pedis pulses palpated, no evidence of clubbing. NEUROLOGIC: Patient is awake, alert and oriented x3. - Labs CBC & Chem 7: 01/22/19 05:37 01/24/19 06:09 Labs: Abnormal Lab Results - Last 24 Hours (Table) 01/24/19 01/24/19 Range/Units 06:09 06:09 PT 36.5 H (9.0-12.0) sec INR 3.8 H (<1.2) Sodium 132 L (137-145) mmol/L Potassium 5.5 H (3.5-5.1) mmol/L Carbon Dioxide 16 L (22-30) mmol/L BUN 132 H* (9-20) mg/dL Creatinine 4.23 H (0.66-1.25) mg/dL Glucose 105 H (74-99) mg/dL Magnesium 2.7 H (1.6-2.3) mg/dL Total Bilirubin 3.9 H (0.2-1.3) mg/dL AST 1659 H (17-59) U/L ALT 2475 H (21-72) U/L Alkaline Phosphatase 144 H (38-126) U/L Albumin 3.4 L (3.5-5.0) g/dL Microbiology - Last 24 Hours (Table) 01/23/19 16:43 Urine Culture - Preliminary Urine,Catheterized 01/21/19 18:50 Gram Stain - Final Leg - Left Wound Culture - Final Staphylococcus aureus Beta Hemolytic Strep Group G 01/21/19 16:28 Blood Culture - Preliminary Blood No Growth after 48 hours 01/21/19 11:35 Blood Culture - Preliminary Blood No Growth after 48 hours Assessment and Plan Plan: Assessment and plan #1 systolic congestive heart failure acute on chronic, documented ejection fraction in February 2000 1820-25% #2 Cellulitis of the left lower extremity #3 Leukocytosis, elevated plasma lactic acid, secondary to sepsis #4 Hypertension #5 Dyslipidemia #6 elevated troponins not indicative of an acute coronary event may be related to sepsis #7 Acute on chronic renal failure #8 Morbid obesity, BMI 51 #9 paroxysmal atrial fibrillation on Coumadin for anticoagulation, INR is supratherapeutic, likely secondary to liver congestion congestive cardiac nahid lure. #10 abnormal liver enzymes likely secondary to congestion #11 hypothyroidism, TSH 10.8 #12 elevated liver enzymes, hepatitis A and B-. #13hypokalemia Plan Patient will be started on IV dobutamine today and subsequently an IV Lasix drip. We will monitor his intake and output closely, check daily lytes BUN and creatinine, overall prognosis is guarded. DNP note has been reviewed, I agree with a documented findings and plan of care. Patient was seen and examined.
[2019-01-24] MEDS: FUROSEMIDE 100 MG in SODIUM CHLORIDE 0.9% 90 ML IV SCH (11:09)
[2019-01-24 11:54] LABS: Glucose,Whole Blood 134 mg/dL (75-99)
[2019-01-24 12:01] LABS: Glucose,Whole Blood 106 mg/dL (75-99)
--- NOTE | 2019-01-24 15:31 | PN ---
PROGRESS NOTE PULMONARY/CRITICAL CARE PROGRESS NOTE: DATE OF SERVICE: 01/24/2019 This is a 63-year-old male whom we saw yesterday. He was doing well, so we ended up signing off on the patient. He really has no history of any lung issues. He is a lifelong nonsmoker. His primary issues include acute on chronic systolic heart failure with an ejection fraction of 20%, left lower extremity cellulitis, morbid obesity, congestive hepatopathy, acute kidney injury, chronic kidney disease, stage III, Coumadin-induced coagulopathy, atrial fibrillation, hypertension, hyperlipidemia and hypothyroidism. The patient was transferred to the ICU because apparently he was hypotensive on the floor. 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 Currently, he is on a couple of liter of oxygen. In addition, the patient is on a Lasix drip of 5 mg/hour, dobutamine at 2.5 mcg/kg per minute and also 0.9 IV at 5 mL/hour. He appears to be relatively stable and his blood pressure, apparently low on the floor, has been normal here. The patient is resting comfortably without any respiratory distress at this time. He denies any chest pain, chest discomfort, shortness of breath, cough, wheezing or phlegm production. PHYSICAL EXAMINATION: VITAL SIGNS: Current vital signs are stable. His temperature is 97, heart rate 62, respiratory rate 20, blood pressure 110/72, 4-liter saturation 94%. GENERAL APPEARANCE: Appears in no acute distress. HEENT: HEENT examination is grossly unremarkable. Mucous membranes are moist. No oral lesions. NECK: Supple. Full range of motion. No adenopathy, thyromegaly or neck vein distention. CARDIOVASCULAR: Cardiovascular examination reveals a regular rhythm and rate. Heart rate about 80 beats per minute. Heart sounds are distant. He seems to be in atrial fibrillation. No murmur. LUNGS: Lungs reveal bibasilar crackles. Breath sounds are diminished. No wheezes or rhonchi. ABDOMEN: Obese. Bowel sounds are heard. EXTREMITIES: Intact. There is edema. There are some chronic venostasis changes and hyperpigmentation. There is pitting. The left leg is quite erythematous. LAB VALUES: Reviewed. PT and INR were 36.5 and 3.8, respectively. Sodium 132, potassium 5.5, chloride 99, CO2 16. Anion gap 17. BUN and creatinine were 132 and 4.23. His AST was 1659, ALT 2475, alkaline phosphatase 144. BNP was 47,500. His TSH was 10.8. His urine suggested the possibility of a urinary tract infection. Microbiology is showing a wound culture which is positive for Staphylococcus aureus and beta-hemolytic strep, group G. ASSESSMENT: 1. Acute exacerbation of chronic systolic heart failure, with an ejection fraction of only 20%. 2. Acute left lower extremity cellulitis, secondary to streptococcus and staphylococcus. 3. Morbid obesity. 4. Congestive hepatopathy. 5. Lactic acidemia, likely secondary to congestive liver disease, possible infection/sepsis and poor tissue perfusion. 6. Acute kidney injury. 7. Chronic kidney disease, stage III. 8. Coumadin-induced coagulopathy. 9. Urinary tract infection. 10.History of atrial fibrillation. 11.Hypertension. 12.Hyperlipidemia. 13.Hypothyroidism. 14.No evidence of intrinsic pulmonary disease per se. PLAN: I will follow as needed. No additional recommendations are made. He is being managed by primarily Nephrology and Cardiology. Not much in the way of input from me. No additional recommendations are made. I would certainly be careful with the dobutamine, as it is a vasodilator and it may cause the blood pressure to drop even further. No additional recommendations are made otherwise. MMODL / IJN: [id number] /
--- NOTE | 2019-01-24 15:47 | PN ---
PROGRESS NOTE DATE OF SERVICE: 01/24/2019 REASON FOR FOLLOWUP: Left lower extremity cellulitis with sepsis. INTERVAL HISTORY: The patient has been transferred down to the ICU because of hypotension and worsening of his renal failure. The patient denies having any chest pain or shortness of breath. Very minimal cough. No nausea or vomiting. No abdominal pain. He denies pain to the left leg area. PHYSICAL EXAMINATION: Blood pressure is 88/62 with a pulse of 62, temperature 97. He is 92% on 4 L nasal cannula. General description is a middle-aged male lying in bed in no distress. RESPIRATORY SYSTEM: Unlabored breathing. Clear to auscultation anteriorly. HEART: S1, S2. Regular rate and rhythm. ABDOMEN: Soft. No tenderness. LEFT LEG: Swelling and redness minimally decreased. LABS: BUN of 132, creatinine 4.23. INR is 3.8. The local culture has been finalized with MSSA and group G strep. DIAGNOSTIC IMPRESSION AND PLAN: Patient with extensive left lower extremity cellulitis with sepsis in this patient currently covered with cefepime and clindamycin. We will switch over the cefepime to cefazolin and monitor his clinical course closely. Overall prognosis remains guarded. MMODL / IJN: [id number] /
--- NOTE | 2019-01-24 20:02 | P.PN ---
Progress Note - Text Progress Note Date: 01/24/19 Interval history: Patient presents with symptoms of increasing shortness of breath. Also some s welling of the left leg with discoloration. Admitting diagnosis was acute CHF exacerbation and left lower extremity cellulitis. Patient admitted with the diagnosis ofAcute on chronic congestive heart failure exacerbation with EF of 2025%, persistent atrial flutter fibrillation, acute ischemic hepatitis from hypotension, acute left lower extremity cellulitis. Today-patient was hypotensive this morning. Seen by cardiology and moved to the ICU. Patient was started on IV dobutamine drip and IV Lasix drip. Patient does feel weak and tired. Rundown. Urine is rather concentrated. Review of systems: Was done for constitutional, cardiovascular, GI, pulmonary. relevant finding as above Active Medications Aspirin (Aspirin) 81 mg PO DAILY [facility] Last Admin: 01/24/19 08:17 Dose: 81 mg Documented by: Clindamycin Phosphate 900 mg/ (Dextrose/Water) 56 mls @ 50 mls/hr IVPB Q8HR [facility] Last Admin: 01/24/19 17:02 Dose: 50 mls/hr Documented by: Dobutamine HCl/Dextrose 500 mg (/ IV Solution) 250 mls @ 11.73 mls/hr IV .[id number] [facility] Last Admin: 01/24/19 08:37 Dose: 2.5 mcg/kg/min, 11.73 mls/hr Documented by: Furosemide 100 mg/ Sodium (Chloride) 100 mls @ 5 mls/hr IV .Q20H [facility] Last Admin: 01/24/19 11:09 Dose: 5 mg/hr, 5 mls/hr Documented by: Cefazolin Sodium 2 gm/ Sodium (Chloride) 50 mls @ 100 mls/hr IVPB Q12HR [facility] Levothyroxine Sodium (Synthroid) 25 mcg PO SUMOWEFRSA [facility] Last Admin: 01/24/19 06:27 Dose: 25 mcg Documented by: Metoprolol Tartrate (Lopressor) 50 mg PO BID [facility] Last Admin: 01/24/19 08:23 Dose: Not Given Documented by: Nitroglycerin (Nitrostat) 0.4 mg SUBLINGUAL Q5M PRN PRN Reason: Chest Pain Sodium Bicarbonate (Sodium Bicarbonate Tab) 1,300 mg PO TID [facility] Last Admin: 01/24/19 15:56 Dose: 1,300 mg Documented by: Sodium Chloride (Saline Flush) 10 ml IV BID [facility] Last Admin: 01/24/19 18:35 Dose: 10 ml Documented by: Physical examination: VITAL SIGNS: 97, 62, 20, 88/62, 92% on 4 L GENERAL: Laying in bed, tired and lethargic but arousable EYES: Pupils equal. Conjunctiva normal. HEENT: External appearance of nose and ears normal, oral cavity grossly normal. NECK: JVD unable to assess masses not palpable. HEART: First and second heart sounds are normal; some edema. LUNGS:[ Respiratory rate increased, decreased breath sounds. ABDOMEN: Soft, distended, nontender, liver spleen not palpable, no masses p alpable. PSYCH: Alert and oriented x3; mood and affect tired DERMATOLOGICAL: Dressing over the left lower extremity INVESTIGATIONS, reviewed in the clinical context: INR 3.8 potassium 5.5 bun 132 creatinine 4.3 to AST 1659 ALT 2475 Previous testing White count 20.7 hemoglobin 14.3 platelets 120 underwent 0.7 potassium 5.3 bun 108 creatinine 3.77 AST 1734 ALT 2214 albumin 3.1 Previous testing: Troponin I 0.20 to Abdominal ultrasound-unremarkable Venous Doppler-negative for DVT in the left lower extremity 2-D echo-EF less than 20%, severe concentric left medical hypertrophy 2-D echo-borderline hepatomegaly, poor study EKG tracing-PVC with left bundle-branch block, atrial flutter fibrillation Assessment: -Acute on chronic congestive heart failure exacerbation from systolic dysfunction EF 20-25% -Persistent atrial fibrillation/flutter -Left bundle-branch block -Acute ischemic hepatitis from hypotension, slow to respond -Morbid obesity BMI 52.3 -Hypoalbuminemia has an acute phase reactant -Acute left lower extremity cellulitis -Hyperlipidemia -Essential hypertension -Chronic kidney disease stage III from nephrosclerosis at her baseline -Acute kidney injury, likely prerenal from cardiorenal syndrome, worsening -Bilateral lower extremity venous insufficiency and chronic venous stasis -Troponin leak from chronic kidney disease, no evidence of acute coronary syndrome -Acute Coumadin toxicity, with no evidence of bleeding in the setting of acute hepatitis Plan: Patient moved to the ICU. Put him on Lasix and a dobutamine drip. Expect renal function to worsen. Being followed by cardiology and nephrology.. Care is discussed with the patient. Prognosis guarded.
[2019-01-25] MEDS: CLINDAMYCIN 900 MG in DEXTROSE 5% IN WATER 50 ML IVPB SCH ×8 (00:08→21:53)
[2019-01-25] MEDS: FUROSEMIDE 100 MG in SODIUM CHLORIDE 0.9% 90 ML IV SCH (02:24)
[2019-01-25 04:43] LABS: Anisocytosis Slight; HGB 12.5 gm/dL (13.0-17.5); MCH 30.2 pg (25.0-35.0); MCV 91.7 fL (80.0-100.0); Mean Platelet Volume 12.9; Platelet Count 108 k/uL (150-450); RBC 4.14 m/uL (4.30-5.90); WBC 10.9 k/uL (3.8-10.6)
[2019-01-25 05:26] LABS: Calcium 8.3 mg/dL (8.4-10.2); Potassium 4.4 mmol/L (3.5-5.1); Total Bilirubin 3.3 mg/dL (0.2-1.3); Total Protein 5.6 g/dL (6.3-8.2)
[2019-01-25] MEDS: LEVOTHYROXINE 25 MCG TAB PO SCH (06:03)
[2019-01-25] MEDS: DOBUTamine DRIP 500 MG in DEXTROSE/WATER 1 250ML.BAG IV SCH ×2 (06:04→16:34)
--- NOTE | 2019-01-25 06:06 | XR ---
EXAMINATION TYPE: XR chest 1V DATE OF EXAM: 01/25/2019 HISTORY: CHF. REFERENCE: NONE. FINDINGS: The heart is enlarged. There is vascular congestion and subtle interstitial change. Pleural spaces are clear. IMPRESSION: FINDINGS SUGGESTIVE OF MILD HEART FAILURE.
[2019-01-25] MEDS: SODIUM BICARBONATE TAB 650 MG TAB PO SCH ×3 (08:43→22:02)
[2019-01-25] MEDS: METOPROLOL TARTRATE 50 MG TAB PO SCH ×2 (08:43→21:53)
--- NOTE | 2019-01-25 09:16 | P.PN ---
Subjective Progress Note Date: 01/25/19 Seen and examined for the follow-up of acute kidney injury. Feels better today. Currently on dobutamine, which is increased from 2.5 mcg/m to 5 mcg/m. Blood pressures soft. Systolic around 90. No nausea vomiting diarrhea. Urine output of 2.1 L in the last 24 hours. Objective - Vital Signs Vital signs: Vital Signs Temp 97.6 F 01/25/19 08:00 Pulse 101 H 01/25/19 08:00 Resp 21 01/25/19 08:00 BP 119/57 01/25/19 08:00 Pulse Ox 95 01/25/19 08:00 Intake & Output 01/24/19 01/25/19 01/25/19 18:59 06:59 18:59 Intake Total 357.11 1526.82 73.099 Output Total 645 1490 550 Balance -287.89 36.82 -476.901 Weight 156.4 kg 156.4 kg Intake: IV 50 10 .9 5ml/hour 10 cefazolin 50 Intake, IV Titration 117.11 516.82 63.099 Amount Clindamycin 900 mg In 50 Dextrose 5% in Water 50 ml @ 50 mls/hr IVPB Q8HR [facility] Rx#:[id number] DOBUTamine DRIP 500 mg In 82.11 355.57 13.099 Dextrose/Water 1 250ml. bag @ 2.5 MCG/KG/MIN 11. 73 mls/hr IV .[id number] [facility] Rx#:[id number] Furosemide 100 mg In 35 111.25 Sodium Chloride 0.9% 90 ml @ 5 MG/HR 5 mls/hr IV .Q20H [facility] Rx#:[id number] ceFAZolin 2 gm In Sodium 50 Chloride 0.9% 50 ml @ 100 mls/hr IVPB Q12HR [facility] Rx #:[id number] Oral 240 960 Output: Urine 645 1490 550 Other: Voiding Method Indwelling Catheter Indwelling Catheter - Exam No acute distress S1-S2 heard Decreased breath sounds Abdomen distended Edema 3+ - Labs CBC & Chem 7: 01/25/19 04:32 01/25/19 04:32 Labs: Abnormal Lab Results - Last 24 Hours (Table) 01/24/19 01/24/19 01/25/19 Range/Units 11:52 11:59 04:32 WBC 10.9 H (3.8-10.6) k/uL RBC 4.14 L (4.30-5.90) m/uL Hgb 12.5 L (13.0-17.5) gm/dL Hct 38.0 L (39.0-53.0) % RDW 17.0 H (11.5-15.5) % Plt Count 108 L (150-450) k/uL Sodium (137-145) mmol/L Carbon Dioxide (22-30) mmol/L BUN (9-20) mg/dL Creatinine (0.66-1.25) mg/dL Glucose (74-99) mg/dL POC Glucose (mg/dL) 134 H 106 H (75-99) mg/dL Calcium (8.4-10.2) mg/dL Total Bilirubin (0.2-1.3) mg/dL AST (17-59) U/L ALT (21-72) U/L Alkaline Phosphatase (38-126) U/L Total Protein (6.3-8.2) g/dL Albumin (3.5-5.0) g/dL 01/25/19 Range/Units 04:32 WBC (3.8-10.6) k/uL RBC (4.30-5.90) m/uL Hgb (13.0-17.5) gm/dL Hct (39.0-53.0) % RDW (11.5-15.5) % Plt Count (150-450) k/uL Sodium 135 L (137-145) mmol/L Carbon Dioxide 19 L (22-30) mmol/L BUN 133 H* (9-20) mg/dL Creatinine 3.24 H (0.66-1.25) mg/dL Glucose 103 H (74-99) mg/dL POC Glucose (mg/dL) (75-99) mg/dL Calcium 8.3 L (8.4-10.2) mg/dL Total Bilirubin 3.3 H (0.2-1.3) mg/dL AST 929 H (17-59) U/L ALT 1685 H (21-72) U/L Alkaline Phosphatase 150 H (38-126) U/L Total Protein 5.6 L (6.3-8.2) g/dL Albumin 3.0 L (3.5-5.0) g/dL Microbiology - Last 24 Hours (Table) 01/23/19 16:43 Urine Culture - Final Urine,Catheterized 01/21/19 16:28 Blood Culture - Preliminary Blood No Growth after 72 hours 01/21/19 11:35 Blood Culture - Preliminary Blood No Growth after 72 hours Assessment and Plan Assessment: #1 nonoliguric acute kidney injury secondary to type I CRS. #2 chronic kidney disease stage III secondary to type to CRS, baseline creatinine 1.2-1.4 MG per DL. #3 CHF with systolic dysfunction currently decompensated EF of less than 20% #4 anion gap metabolic acidosis secondary to acute kidney injury. #5 hyperkalemia improved #6 volume overload #7 shock liver secondary to hypoperfusion Plan: #1 renal function improved with urine output. Continue with Lasix at 5 mg an hour. #2 add midodrine for hemodynamic support. Maintain systolic blood pressure more than 100 #3 continue with sodium bicarbonate for metabolic acidosis #4 check phosphorus in the morning #5 avoid nephrotoxic agents and hypotensive episodes. #6 labs in the morning
[2019-01-25 09:35] LABS: INR 2.6 (<1.2); Prothrombin Time 25.5 sec (9.0-12.0)
[2019-01-25] MEDS: MIDODRINE 5 MG TAB PO SCH ×3 (09:59→16:54)
--- NOTE | 2019-01-25 13:29 | PN ---
PROGRESS NOTE DATE OF SERVICE: January 25, 2019 A 63-year-old male who was seen in consultation a couple days ago. The patient came in primarily with an episode of congestive heart failure. Because he had no history of any lung issues, we decided not to continue to see him, but yesterday was moved to the ICU and was placed on dobutamine. He was also placed on Lasix drip. Currently, the patient is on nasal O2 at 5 L. He has a Lasix drip running at 5 mg an hour, dobutamine at 5 mcg/kg per minute. He states that he is feeling better. He does have a history of chronic systolic heart failure with an ejection fraction of 20%, left lower extremity cellulitis, morbid obesity, congestive hepatopathy, acute kidney injury, chronic kidney disease, stage III, Coumadin induced coagulopathy, chronic atrial fibrillation, hypertension, hyperlipidemia, and hypothyroidism. Currently, the patient is doing a bit better than he was yesterday. PHYSICAL EXAMINATION: VITAL SIGNS: His current vital signs are reviewed. Temperature is 97.6. Heart rate 80, respiratory rate 21, blood pressure 119/57, mean 77, 5 L saturation 95%. He appears in no acute distress. HEENT examination is grossly unremarkable. Mucous membranes are moist. No oral lesions. NECK: Neck is supple. Full range of motion. No adenopathy. Neck veins are flat. CARDIOVASCULAR examination reveals a irregular rhythm rate. Heart rate about 90 beats per minute. He appears to be in atrial fibrillation. S1, S2 normal. Heart sounds are distant. LUNGS reveal bibasilar crackles. Diffuse coarse rhonchi. No wheezes. Breath sounds equal bilaterally. ABDOMEN is soft, but obese. Bowel sounds are heard. EXTREMITIES reveal significant edema and erythema. There is some pitting. His left leg is very erythematous and hyperemic. There are some chronic venous stasis changes as well. SKIN: Without rash other than was described above. NEUROLOGIC: Examination is brief but nonfocal. LABS: Reviewed. White count 10.9, hemoglobin 12.5, hematocrit 38. Platelet count 108,000. Sodium 135, potassium 4.4, chloride 101, CO2 19, anion gap is 15. BUN and creatinine were 133 and 3.24. The rest of his labs are reviewed. Liver enzymes are bit improved. A chest x-ray was done today. It, in my opinion, shows improved volume status. Microbiology showing evidence of Staph aureus and beta-hemolytic Strep from the left leg wound. Medications are reviewed. ASSESSMENT: 1. Acute exacerbation of chronic systolic heart failure in a patient with an ejection fraction of only 20%. 2. Acute left lower extremity cellulitis, secondary to group G Strep and Staph. 3. Morbid obesity. 4. Congestive hepatopathy. 5. Lactic acidemia, likely secondary to congestive liver disease, possible infection/sepsis and poor tissue perfusion. 6. Acute on chronic kidney disease in a patient with stage 3 chronic kidney disease. 7. Coumadin induced coagulopathy. 8. Urinary tract infection. 9. History of atrial fibrillation. 10.History of benign essential hypertension. 11.Hyperlipidemia. 12.Hypothyroidism. No evidence of intrinsic pulmonary disease. PLAN: Currently, the patient seems to be doing relatively well. He remains on dobutamine at 5 mcg/kg per minute and Lasix drip of 5 mg an hour. His respiratory status seems stable. His chest x-ray to me looks improved. Additional recommendations and suggestions are forthcoming. Overall prognosis remains guarded. MMODL / IJN: [id number] /
--- NOTE | 2019-01-25 13:42 | P.PN ---
Progress Note - Text Progress Note Date: 01/25/19 Interval history: Patient presents with symptoms of increasing shortness of breath. Also some s welling of the left leg with discoloration. Admitting diagnosis was acute CHF exacerbation and left lower extremity cellulitis. Patient admitted with the diagnosis ofAcute on chronic congestive heart failure exacerbation with EF of 2025%, persistent atrial flutter fibrillation, acute ischemic hepatitis from hypotension, acute left lower extremity cellulitis. On 01/24/2019 patient was moved to the ICU for being hypotensive. Started on IV Lasix drip and IV dobutamine. Today-and ICU. Remains on Lasix drip and dobutamine drip. Making good urine output. Did tolerate some diet. Propped up in bed, tired. Watching television. Over thousand cc in negative fluid balance Review of systems: Was done for constitutional, cardiovascular, GI, pulmonary. relevant finding as above Active Medications Clindamycin Phosphate 900 mg/ (Dextrose/Water) 56 mls @ 50 mls/hr IVPB Q8HR [facility] Last Admin: 01/25/19 09:58 Dose: 50 mls/hr Documented by: Dobutamine HCl/Dextrose 500 mg (/ IV Solution) 250 mls @ 11.73 mls/hr IV .[id number] [facility] Last Infusion: 01/25/19 07:11 Dose: 5 mcg/kg/min, 23.46 mls/hr Documented by: Furosemide 100 mg/ Sodium (Chloride) 100 mls @ 5 mls/hr IV .Q20H [facility] Last Admin: 01/25/19 02:24 Dose: 5 mg/hr, 5 mls/hr Documented by: Cefazolin Sodium 2 gm/ Sodium (Chloride) 50 mls @ 100 mls/hr IVPB Q12HR [facility] Last Admin: 01/25/19 08:44 Dose: 100 mls/hr Documented by: Levothyroxine Sodium (Synthroid) 25 mcg PO SUMOWEFRSA [facility] Last Admin: 01/25/19 06:03 Dose: 25 mcg Documented by: Metoprolol Tartrate (Lopressor) 50 mg PO BID [facility] Last Admin: 01/25/19 08:43 Dose: 50 mg Documented by: Midodrine (Proamatine) 5 mg PO AC-TID [facility] Last Admin: 01/25/19 12:13 Dose: 5 mg Documented by: Nitroglycerin (Nitrostat) 0.4 mg SUBLINGUAL Q5M PRN PRN Reason: Chest Pain Sodium Bicarbonate (Sodium Bicarbonate Tab) 1,300 mg PO TID [facility] Last Admin: 01/25/19 08:43 Dose: 1,300 mg Documented by: Sodium Chloride (Saline Flush) 10 ml IV BID [facility] Last Admin: 01/25/19 09:59 Dose: 10 ml Documented by: Physical examination: VITAL SIGNS: 97.1, 100, 18, 102/72, 93 % on 5 L GENERAL: Propped up in bed, awake EYES: Pupils equal. Conjunctiva normal. HEENT: External appearance of nose and ears normal, oral cavity grossly normal. NECK: JVD unable to assess masses not palpable. HEART: First and second heart sounds are normal; some edema. LUNGS:[ Respiratory rate increased, decreased breath sounds. ABDOMEN: Soft, distended, nontender, liver spleen not palpable, no masses palpable. PSYCH: Alert and oriented x3; mood and affect tired DERMATOLOGICAL: Dressing over the left lower extremity INVESTIGATIONS, reviewed in the clinical context: White count 10.9 hemoglobin 12.5 platelets 108 potassium 4.4 bun 133 creatinine 3.24 total bilirubin 3.3 AST 929 ALT 1685 INR 2.6 Previous testing White count 20.7 hemoglobin 14.3 platelets 120 underwent 0.7 potassium 5.3 bun 108 creatinine 3.77 AST 1734 ALT 2214 albumin 3.1 Previous testing: Troponin I 0.20 to Abdominal ultrasound-unremarkable Venous Doppler-negative for DVT in the left lower extremity 2-D echo-EF less than 20%, severe concentric left medical hypertrophy 2-D echo-borderline hepatomegaly, poor study EKG tracing-PVC with left bundle-branch block, atrial flutter fibrillation Assessment: -Acute on chronic congestive heart failure exacerbation from systolic dysfunction EF 20-25%, decompensated, slow to respond -Persistent atrial fibrillation/flutter -Left bundle-branch block -Acute ischemic hepatitis from hypotension, slow to respond -Morbid obesity BMI 52.3 -Hypoalbuminemia has an acute phase reactant -Acute left lower extremity cellulitis -Hyperlipidemia -Essential hypertension -Chronic kidney disease stage III from nephrosclerosis at her baseline -Acute kidney injury, likely prerenal from cardiorenal syndrome, starting to turn around -Bilateral lower extremity venous insufficiency and chronic venous stasis -Troponin leak from chronic kidney disease, no evidence of acute coronary syndrome -Acute Coumadin toxicity, with no evidence of bleeding in the setting of acute hepatitis, I notice come down Plan: Remains on Lasix and dobutamine drip. Making fair amount of urine. Awake. Continue with antibiotics. Prognosis remains guarded. Discussed with the patient.
--- NOTE | 2019-01-25 13:50 | PCN ---
PROCEDURE NOTE This is a morbidly obese gentleman with chronic atrial fibrillation, sleep apnea syndrome and sees Dr. Goodwin in the outpatient setting. He came in with coagulopathy and heart failure with atrial fib and moderate rate. He was started on dobutamine yesterday. He is clinically about the same. Oxygenation is acceptable. He is in atrial fib. Rate is controlled. JVD is 2 cm. No carotid bruit. S1-S2 heard normally with irregular rhythm. Short systolic murmur. Lungs reveal diminished air entry. Lower extremities reveal bilateral cellulitis, wrapped in bandages. 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 He was started on dobutamine yesterday. I am recommending that we will discontinue aspirin, increase dobutamine to 5 mics and hopefully his Lasix can be increased further and I will leave this for Nephrology. Overall prognosis is very poor for this gentleman. MMODL / IJN: [id number] /
--- NOTE | 2019-01-25 17:38 | P.PN ---
Subjective Progress Note Date: 01/25/19 Principal diagnosis: Elevated liver enzymes Patient seen lying in bed. No bowel movements today. He is tolerating his diet. No nausea, vomiting or abdominal pain reported. Objective - Vital Signs Vital signs: Vital Signs Temp 97.6 F 01/25/19 08:00 Pulse 73 01/25/19 11:00 Resp 13 01/25/19 11:00 BP 102/68 01/25/19 11:00 Pulse Ox 94 L 01/25/19 11:00 Intake & Output 01/24/19 01/25/19 01/25/19 18:59 06:59 18:59 Intake Total 357.11 1526.82 73.099 Output Total 645 1490 550 Balance -287.89 36.82 -476.901 Weight 156.4 kg 156.4 kg Intake: IV 50 10 .9 5ml/hour 10 cefazolin 50 Intake, IV Titration 117.11 516.82 63.099 Amount Clindamycin 900 mg In 50 Dextrose 5% in Water 50 ml @ 50 mls/hr IVPB Q8HR [facility] Rx#:[id number] DOBUTamine DRIP 500 mg In 82.11 355.57 13.099 Dextrose/Water 1 250ml. bag @ 2.5 MCG/KG/MIN 11. 73 mls/hr IV .[id number] [facility] Rx#:[id number] Furosemide 100 mg In 35 111.25 Sodium Chloride 0.9% 90 ml @ 5 MG/HR 5 mls/hr IV .Q20H [facility] Rx#:[id number] ceFAZolin 2 gm In Sodium 50 Chloride 0.9% 50 ml @ 100 mls/hr IVPB Q12HR [facility] Rx #:[id number] Oral 240 960 Output: Urine 645 1490 550 Other: Voiding Method Indwelling Catheter Indwelling Catheter Indwelling Catheter - Exam On physical examination, patient appears comfortable in no apparent distress. HEAD: Normocephalic, atraumatic. EYES: No scleral icterus. No conjunctival injection. MOUTH: No lesions, tongue midline. NECK: Trachea midline, no gross abnormalities. CHEST: Clear to auscultation with no wheezing or rhonchi appreciated. HEART: S1-S2 appreciated. ABDOMEN: Soft, obese. Bowel sounds are positive. No organomegaly. No guarding or rigidity. NEUROLOGIC: Alert and oriented. - Labs CBC & Chem 7: 01/25/19 04:32 01/25/19 04:32 Labs: Abnormal Lab Results - Last 24 Hours (Table) 01/24/19 01/24/19 01/25/19 Range/Units 11:52 11:59 04:32 WBC 10.9 H (3.8-10.6) k/uL RBC 4.14 L (4.30-5.90) m/uL Hgb 12.5 L (13.0-17.5) gm/dL Hct 38.0 L (39.0-53.0) % RDW 17.0 H (11.5-15.5) % Plt Count 108 L (150-450) k/uL PT (9.0-12.0) sec INR (<1.2) Sodium (137-145) mmol/L Carbon Dioxide (22-30) mmol/L BUN (9-20) mg/dL Creatinine (0.66-1.25) mg/dL Glucose (74-99) mg/dL POC Glucose (mg/dL) 134 H 106 H (75-99) mg/dL Calcium (8.4-10.2) mg/dL Total Bilirubin (0.2-1.3) mg/dL AST (17-59) U/L ALT (21-72) U/L Alkaline Phosphatase (38-126) U/L Total Protein (6.3-8.2) g/dL Albumin (3.5-5.0) g/dL 01/25/19 01/25/19 Range/Units 04:32 09:12 WBC (3.8-10.6) k/uL RBC (4.30-5.90) m/uL Hgb (13.0-17.5) gm/dL Hct (39.0-53.0) % RDW (11.5-15.5) % Plt Count (150-450) k/uL PT 25.5 H (9.0-12.0) sec INR 2.6 H (<1.2) Sodium 135 L (137-145) mmol/L Carbon Dioxide 19 L (22-30) mmol/L BUN 133 H* (9-20) mg/dL Creatinine 3.24 H (0.66-1.25) mg/dL Glucose 103 H (74-99) mg/dL POC Glucose (mg/dL) (75-99) mg/dL Calcium 8.3 L (8.4-10.2) mg/dL Total Bilirubin 3.3 H (0.2-1.3) mg/dL AST 929 H (17-59) U/L ALT 1685 H (21-72) U/L Alkaline Phosphatase 150 H (38-126) U/L Total Protein 5.6 L (6.3-8.2) g/dL Albumin 3.0 L (3.5-5.0) g/dL Microbiology - Last 24 Hours (Table) 01/23/19 16:43 Urine Culture - Final Urine,Catheterized 01/21/19 16:28 Blood Culture - Preliminary Blood No Growth after 72 hours 01/21/19 11:35 Blood Culture - Preliminary Blood No Growth after 72 hours Assessment and Plan (1) Liver enzyme elevation Narrative/Plan: 63-year-old male presenting the hospital due to sepsis secondary to left lower extremity cellulitis. The patient was found to have a market elevation in his liver enzymes is felt to be secondary to ischemic hepatitis superimposed on underlying chronic liver disease. Liver enzymes have continued to improve since that time with total bilirubin 3.3 from 3.9, alkaline phosphatase 150 from 144, AST 924 from 1659 and ALTs 1685 from 2475. Current Visit: Yes Status: Acute Code(s): R74.8 - ABNORMAL LEVELS OF OTHER SERUM ENZYMES SNOMED Code(s): 927512625 Plan: Supportive care Okay for diet Continue ICU management Continue broad-spectrum antibiotic therapy Continue trend liver enzymes Acute viral hepatitis panel negative Thank you for allowing us to dissipate in the care of the patient
[2019-01-26 04:36] LABS: Anisocytosis Slight; HCT 41.9 % (39.0-53.0); HGB 13.8 gm/dL (13.0-17.5); MCH 30.1 pg (25.0-35.0); MCHC 32.8 g/dL (31.0-37.0); MCV 91.6 fL (80.0-100.0); Platelet Count 115 k/uL (150-450); RBC 4.58 m/uL (4.30-5.90); WBC 13.1 k/uL (3.8-10.6)
[2019-01-26 04:40] LABS: INR 2.5 (<1.2); Prothrombin Time 23.8 sec (9.0-12.0)
[2019-01-26] MEDS: FUROSEMIDE 100 MG in SODIUM CHLORIDE 0.9% 90 ML IV SCH (04:50)
[2019-01-26 04:55] LABS: Albumin 3.2 g/dL (3.5-5.0); Calcium 8.4 mg/dL (8.4-10.2); Phosphorus 4.3 mg/dL (2.5-4.5); Potassium 3.5 mmol/L (3.5-5.1); Total Protein 6.1 g/dL (6.3-8.2)
--- NOTE | 2019-01-26 05:57 | XR ---
EXAMINATION TYPE: XR chest 1V DATE OF EXAM: 01/26/2019 HISTORY: CHF. REFERENCE: Previous study dated 01/25/2019. FINDINGS: The heart is enlarged. There is vascular congestion and interstitial change. This may have worsened slightly from previous. Both CP angles are obscured and I could not exclude small effusions. IMPRESSION: CONTINUING CHANGES OF CONGESTIVE HEART FAILURE MAY HAVE WORSENED SLIGHTLY FROM PREVIOUS.
[2019-01-26] MEDS: LEVOTHYROXINE 25 MCG TAB PO SCH (06:36)
[2019-01-26] MEDS: MIDODRINE 5 MG TAB PO SCH ×3 (06:36→16:30)
[2019-01-26] MEDS: DOBUTamine DRIP 500 MG in DEXTROSE/WATER 1 250ML.BAG IV SCH ×2 (07:00→14:33)
--- NOTE | 2019-01-26 07:58 | PN ---
PROGRESS NOTE Mr. López is in chronic atrial fib. INR is 2.5 and I have given 2.5 mg of Coumadin today. With increased dobutamine, his urine output has picked up very well. He is putting out almost 200 mL/hour. He is feeling better. Breathing is easier. Remains in atrial fibrillation, hemodynamically stable. Decent urine output. JVD is still 1-2 cm. No carotid bruit. Heart sounds are heard distantly. Short systolic murmur. Irregular rhythm. Lungs reveal diminished air entry. Abdomen and lower extremity exam is unchanged. Plan is to continue dobutamine. Continue current dose of Lasix which with patient has improved renal function. Same medical regimen. Prognosis remains guarded. MMODL / IJN: [id number] /
--- NOTE | 2019-01-26 08:37 | PN ---
PROGRESS NOTE DATE OF SERVICE: January 26, 2019 This is a 63-year-old male with a history of acute exacerbation of chronic systolic heart failure. He has an ejection fraction of 20%. The patient was initially seen on the floor. He was subsequently moved to the ICU for IV Lasix and IV dobutamine. Currently, he remains on Lasix drip of 5 mg an hour and dobutamine at 5 mcg/kg per minute. He is also receiving O2 at 6 L and he has got a saline IV at 5 mL an hour. In addition, when he was admitted, he came in with acute left lower extremity cellulitis secondary to group G Strep and Staph. He suffers from morbid obesity, congestive hepatopathy, lactic acidemia, Coumadin induced coagulopathy, urinary tract infection, atrial fibrillation, benign essential hypertension, hyperlipidemia, hypothyroidism, and no evidence of any intrinsic pulmonary disease. He is a lifelong nonsmoker. Currently, the patient is feeling much better. Over the last 24 or so hours, he is - 4.5 L. PHYSICAL EXAMINATION: VITAL SIGNS: Current vital signs are reviewed. Temperature 97.8. Heart rate 82, respiratory rate 18, blood pressure 108/82, and saturations are mid 90s on the 6 L. GENERAL: Appears in no acute distress. HEENT examination is grossly unremarkable. Mucous membranes are moist. No oral lesions. NECK: Supple. Full range of motion. No adenopathy, thyromegaly or neck vein distention. CARDIOVASCULAR examination reveals regular rhythm and rate. Heart rate 80. S1, S2 normal. Heart sounds are distant. No distinct murmur. LUNGS: Bibasilar crackles. Breath sounds are diminished. No wheezes or rhonchi. ABDOMEN: Obese. Bowel sounds are heard. EXTREMITIES are intact. He has some chronic venous stasis changes bilaterally and significant erythema of the left lower extremity, which is wrapped. He has evidence also of onychomycosis. SKIN otherwise is unremarkable. NEUROLOGIC: Examination is nonfocal. LABS: Reviewed. White count 13.1, hemoglobin 13.8, hematocrit 41.9, platelet count is 115,000. PT/INR was 23.8 and 2.5 respectively. Sodium 137, potassium 3.5, chloride 101, CO2 26, anion gap is 10. BUN and creatinine are 110 and 2.26 compared to 133 and 3.24 yesterday. Liver function tests are improved. AST is down from 929 to 519, bilirubin down from 3.3 to 3.0, ALT down from 4859-6545. Albumin is 3.2. Microbiology shows Staph aureus and beta-hemolytic strep from the wound sampling from the left leg on January 21. Chest x-ray continues in my opinion to show changes of congestive heart failure. He has significant cardiomegaly, fluid in the minor fissure, bilateral effusions and cephalization. ASSESSMENT: 1. Acute exacerbation of chronic systolic heart failure in a patient with an ejection fraction of only 20%. 2. Acute left lower extremity cellulitis, secondary to group G Strep and Staph. 3. Morbid obesity. 4. Congestive hepatopathy. 5. Lactic acidemia, resolved, likely secondary to CHF, possible infection/sepsis and poor tissue perfusion. 6. Acute on chronic kidney disease in a patient with stage 3 chronic kidney disease. 7. Coumadin induced coagulopathy, resolved. 8. Urinary tract infection. 9. History of atrial fibrillation. 10.History of benign essential hypertension. 11.History of hyperlipidemia. 12.Hypothyroidism. 13.No evidence of intrinsic pulmonary disease. PLAN: The patient remains on dobutamine and Lasix. He has had a good urine output and a net fluid loss over the last 24-36 hours. His chest x-ray continues to show findings of heart failure. His respiratory status is reasonably stable, though he is still on O2 at 6 L. Labs are reviewed. His liver enzymes have come down nicely. Additional recommendations and suggestions are forthcoming. Prognosis is guarded. MMODL / IJN: [id number] /
[2019-01-26] MEDS: METOPROLOL TARTRATE 50 MG TAB PO SCH ×2 (08:44→21:04)
[2019-01-26] MEDS: CLINDAMYCIN 900 MG in DEXTROSE 5% IN WATER 50 ML IVPB SCH ×4 (08:44→16:26)
[2019-01-26] MEDS: SODIUM BICARBONATE TAB 650 MG TAB PO SCH ×3 (08:44→21:04)
--- NOTE | 2019-01-26 10:33 | P.PN ---
Subjective Progress Note Date: 01/26/19 Seen and examined for the follow-up of acute kidney injury. Feels better today. Currently on dobutamine 5 mcg/m, renal function improving with a urine output of 5 L in the last 24 hours. Objective - Vital Signs Vital signs: Vital Signs Temp 97.8 F 01/26/19 08:00 Pulse 75 01/26/19 09:01 Resp 18 01/26/19 09:01 BP 110/69 01/26/19 09:01 Pulse Ox 93 L 01/26/19 09:01 Intake & Output 01/25/19 01/26/19 01/26/19 19:59 06:59 18:59 Intake Total 110 Output Total 600 Balance -490 Weight Intake: IV 110 .9 5ml/hour 10 Clindamycin 900 mg In 50 Dextrose 5% in Water 50 ml @ 50 mls/hr IVPB Q8HR [facility] Rx#:[id number] cefazolin 50 Intake, IV Titration Amount Cefepime 2 gm In Sodium Chloride 0.9% 100 ml @ 200 mls/hr IVPB Q24HR [facility] Rx#:[id number] Clindamycin 900 mg In Dextrose 5% in Water 50 ml @ 50 mls/hr IVPB Q8HR [facility] Rx#:[id number] DOBUTamine DRIP 500 mg In Dextrose/Water 1 250ml. bag @ 2.5 MCG/KG/MIN 11. 73 mls/hr IV .[id number] [facility] Rx#:[id number] Furosemide 100 mg In Sodium Chloride 0.9% 90 ml @ 5 MG/HR 5 mls/hr IV .Q20H [facility] Rx#:[id number] ceFAZolin 2 gm In Sodium Chloride 0.9% 50 ml @ 100 mls/hr IVPB Q12HR [facility] Rx #:[id number] Output: Urine 600 Other: Voiding Method # Voids 0 # Bowel Movements 1 - Exam No acute distress S1-S2 heard Decreased breath sounds Abdomen distended Edema 3+ - Labs CBC & Chem 7: 01/26/19 04:08 01/26/19 04:08 Labs: Abnormal Lab Results - Last 24 Hours (Table) 01/26/19 01/26/19 01/26/19 Range/Units 04:08 04:08 04:08 WBC 13.1 H (3.8-10.6) k/uL RDW 17.0 H (11.5-15.5) % Plt Count 115 L (150-450) k/uL PT 23.8 H (9.0-12.0) sec INR 2.5 H (<1.2) BUN 110 H* (9-20) mg/dL Creatinine 2.26 H (0.66-1.25) mg/dL Total Bilirubin 3.0 H (0.2-1.3) mg/dL AST 519 H (17-59) U/L ALT 1110 H (21-72) U/L Alkaline Phosphatase 183 H (38-126) U/L Total Protein 6.1 L (6.3-8.2) g/dL Albumin 3.2 L (3.5-5.0) g/dL Microbiology - Last 24 Hours (Table) 01/21/19 16:28 Blood Culture - Preliminary Blood No Growth after 96 hours 01/21/19 11:35 Blood Culture - Preliminary Blood No Growth after 96 hours Assessment and Plan Assessment: #1 nonoliguric acute kidney injury secondary to type I CRS. #2 chronic kidney disease stage III secondary to type to CRS, baseline creatinine 1.2-1.4 MG per DL. #3 CHF with systolic dysfunction currently decompensated EF of less than 20% #4 anion gap metabolic acidosis secondary to acute kidney injury. #5 hyperkalemia improved #6 volume overload #7 shock liver secondary to hypoperfusion Plan: #1 renal function improved with urine output. Continue with Lasix at 5 mg an hour. #2 continue with midodrine for hemodynamic support. Maintain systolic blood pressure more than 100 #3 continue with sodium bicarbonate for metabolic acidosis #4 avoid nephrotoxic agents and hypotensive episodes.
[2019-01-26] MEDS: WARFARIN 2.5 MG TAB PO SCH (18:41)
--- NOTE | 2019-01-26 22:50 | PN ---
PROGRESS NOTE DATE OF SERVICE: 01/26/2019. REASON FOR FOLLOWUP: Left lower extremity cellulitis. INTERVAL HISTORY: The patient is currently afebrile. The patient is breathing comfortably. Denies having any chest pain or shortness of breath. Occasional cough. Denies pain to the left leg area. PHYSICAL EXAMINATION: Blood pressure 152/80 with a pulse of 83, temperature 97.7. General description is a middle aged female lying in bed in no distress. Respiratory system: Unlabored breathing. Decreased breath sounds in the bases. No wheeze. Heart S1, S2. Regular rate and rhythm. Abdomen soft. No tenderness. Legs are currently wrapped up. No obvious drainage on the dressing. LABS: Hemoglobin 13.8, white count 13.1. BUN of 110, creatinine is 2.26. DIAGNOSTIC IMPRESSION AND PLAN: Patient with left lower extremity cellulitis. Local culture positive for strep and MSSA. The patient is currently covered on cefazolin and clindamycin to continue while monitoring his clinical course closely. Continue supportive care. MMODL / IJN: [id number] /
--- NOTE | 2019-01-26 23:12 | P.PN ---
Progress Note - Text Progress Note Date: 01/26/19 Interval history: Patient presents with symptoms of increasing shortness of breath. Also some s welling of the left leg with discoloration. Admitting diagnosis was acute CHF exacerbation and left lower extremity cellulitis. Patient admitted with the diagnosis ofAcute on chronic congestive heart failure exacerbation with EF of 2025%, persistent atrial flutter fibrillation, acute ischemic hepatitis from hypotension, acute left lower extremity cellulitis. On 01/24/2019 patient was moved to the ICU for being hypotensive. Started on IV Lasix drip and IV dobutamine. Today-and the ICU. Patient remains on a dobutamine drip of 5 mcg/m, Lasix at 5 mg per hour. Propped up in bed tolerating his diet. Urine is now light yellow in color. good urine output. Review of systems: Was done for constitutional, cardiovascular, GI, pulmonary. relevant finding as above Active Medications Clindamycin Phosphate 900 mg/ (Dextrose/Water) 56 mls @ 50 mls/hr IVPB Q8HR [facility] Last Admin: 01/26/19 16:26 Dose: 50 mls/hr Documented by: Dobutamine HCl/Dextrose 500 mg (/ IV Solution) 250 mls @ 11.73 mls/hr IV .[id number] [facility] Last Admin: 01/26/19 14:33 Dose: 5 mcg/kg/min, 23.46 mls/hr Documented by: Furosemide 100 mg/ Sodium (Chloride) 100 mls @ 5 mls/hr IV .Q20H [facility] Last Admin: 01/26/19 04:50 Dose: 5 mg/hr, 5 mls/hr Documented by: Cefazolin Sodium 2 gm/ Sodium (Chloride) 50 mls @ 100 mls/hr IVPB Q12HR [facility] Last Admin: 01/26/19 21:05 Dose: 100 mls/hr Documented by: Levothyroxine Sodium (Synthroid) 25 mcg PO [facility]EFRSA [facility] Last Admin: 01/26/19 06:36 Dose: 25 mcg Documented by: Metoprolol Tartrate (Lopressor) 50 mg PO BID [facility] Last Admin: 01/26/19 21:04 Dose: 50 mg Documented by: Midodrine (Proamatine) 5 mg PO AC-TID [facility] Last Admin: 01/26/19 16:30 Dose: 5 mg Documented by: Nitroglycerin (Nitrostat) 0.4 mg SUBLINGUAL Q5M PRN PRN Reason: Chest Pain Sodium Bicarbonate (Sodium Bicarbonate Tab) 1,300 mg PO TID [facility] Last Admin: 01/26/19 21:04 Dose: 1,300 mg Documented by: Sodium Chloride (Saline Flush) 10 ml IV BID [facility] Last Admin: 01/26/19 21:15 Dose: 10 ml Documented by: Warfarin Sodium (Coumadin) 2.5 mg PO DAILY@1800 [facility] Last Admin: 01/26/19 18:41 Dose: 2.5 mg Documented by: Physical examination: VITAL SIGNS: 97.8, 84, 16, 11 9/99, 93% on 6 L GENERAL: Propped up in bed, awake EYES: Pupils equal. Conjunctiva normal. HEENT: External appearance of nose and ears normal, oral cavity grossly normal. NECK: JVD unable to assess masses not palpable. HEART: First and second heart sounds are normal; some edema. LUNGS:[ Respiratory rate increased, decreased breath sounds. ABDOMEN: Soft, distended, nontender, liver spleen not palpable, no masses palpable. Sims catheter in place PSYCH: Alert and oriented x3; mood and affect more awake DERMATOLOGICAL: Dressing over the left lower extremity INVESTIGATIONS, reviewed in the clinical context: White count 10.1 hemoglobin 13.8 INR 2.5 potassium 3.5 bun 110 creatine 2.26 AST 59 ALT 1110 Previous testing: Troponin I 0.20 to Abdominal ultrasound-unremarkable Venous Doppler-negative for DVT in the left lower extremity 2-D echo-EF less than 20%, severe concentric left medical hypertrophy 2-D echo-borderline hepatomegaly, poor study EKG tracing-PVC with left bundle-branch block, atrial flutter fibrillation White count 20.7 hemoglobin 14.3 platelets 120 underwent 0.7 potassium 5.3 bun 108 creatinine 3.77 AST 1734 ALT 2214 albumin 3.1 Assessment: -Acute on chronic congestive heart failure exacerbation from systolic dysfunction EF 20-25%, decompensated, slow to respond, remains on Lasix and dobutamine drip -Persistent atrial fibrillation/flutter -Left bundle-branch block -Acute ischemic hepatitis from hypotension, started to improve -Morbid obesity BMI 52.3 -Hypoalbuminemia has an acute phase reactant -Acute left lower extremity cellulitis -Hyperlipidemia -Essential hypertension -Chronic kidney disease stage III from nephrosclerosis at her baseline -Acute kidney injury, likely prerenal from cardiorenal syndrome, starting to turn around -Bilateral lower extremity venous insufficiency and chronic venous stasis -Troponin leak from chronic kidney disease, no evidence of acute coronary syndrome -Acute Coumadin toxicity, with no evidence of bleeding in the setting of acute hepatitis, I notice come down Plan: In the ICU. On dobutamine and Lasix drip. Making good urine output. Liver function started to improve. Appetite is improving.
[2019-01-27] MEDS: FUROSEMIDE 100 MG in SODIUM CHLORIDE 0.9% 90 ML IV SCH ×2 (01:05→20:14)
[2019-01-27] MEDS: CLINDAMYCIN 900 MG in DEXTROSE 5% IN WATER 50 ML IVPB SCH ×6 (01:06→16:00)
[2019-01-27 04:51] LABS: Anisocytosis Slight; HCT 44.9 % (39.0-53.0); HGB 14.2 gm/dL (13.0-17.5); Hypochromasia Slight; MCH 29.9 pg (25.0-35.0); MCHC 31.5 g/dL (31.0-37.0); MCV 94.8 fL (80.0-100.0); Platelet Count 123 k/uL (150-450); RBC 4.74 m/uL (4.30-5.90); RDW 16.9 % (11.5-15.5)
[2019-01-27 05:04] LABS: Albumin 3.1 g/dL (3.5-5.0); Calcium 8.5 mg/dL (8.4-10.2); Total Bilirubin 3.1 mg/dL (0.2-1.3); Total Protein 5.9 g/dL (6.3-8.2)
[2019-01-27 05:35] LABS: Potassium 3.6 mmol/L (3.5-5.1)
[2019-01-27] MEDS: MIDODRINE 5 MG TAB PO SCH ×3 (07:35→17:27)
[2019-01-27] MEDS: LEVOTHYROXINE 25 MCG TAB PO SCH (07:35)
--- NOTE | 2019-01-27 08:30 | XR ---
EXAMINATION TYPE: XR chest 1V DATE OF EXAM: 01/27/2019 COMPARISON: 01/26/2019 HISTORY: 63-year-old male with CHF TECHNIQUE: Single frontal view of the chest is obtained. FINDINGS: Heart mildly enlarged. Diffuse interstitial and vascular densities. Strandy atelectasis lower lungs. No consolidation or pleural effusion. IMPRESSION: Mild cardiomegaly and interstitial changes, correlate for CHF with pulmonary vascular congestion.
[2019-01-27] MEDS: SODIUM BICARBONATE TAB 650 MG TAB PO SCH (08:51)
[2019-01-27] MEDS: METOPROLOL TARTRATE 50 MG TAB PO SCH ×2 (08:51→20:18)
[2019-01-27 09:47] LABS: INR 1.7 (<1.2); Prothrombin Time 17.1 sec (9.0-12.0)
--- NOTE | 2019-01-27 14:21 | PN ---
PROGRESS NOTE Omid is a 63-year-old gentleman with complex and multiple medical problems including cardiomyopathy with severe LV dysfunction, chronic severe systolic congestive heart failure, bilateral lower extremity cellulitis and edema, who was admitted to hospital with acute renal failure, shock liver, and congestive heart failure. He has been started on intravenous dobutamine and Lasix drip. This morning he is feeling better. Urine output is good. Leg edema had improved. He seems more alert and awake. His INR which was severely elevated on presentation has gradually come down and he had been started on Coumadin 2.5 mg daily. This morning, the INR is 1.7. His hemoglobin is 14.2. Creatinine has come down to 1.6 from 3.2. Potassium is normal. His liver enzymes are gradually coming down. They were at 920 and 1600 and they are down to 257 and 632. On exam, heart rate is 90 beats per minute. Blood pressure is 91/66, respiratory 18. Chest exam reveals diminished air entry at the bases. Heart exam reveals first and second heart sounds, irregular rhythm. Abdomen is soft. Examination of the extremities reveals diminished pulses. Bilateral lower extremity cellulitis, edema and skin blebs. Labs showed that hemoglobin is 14.2. Potassium is 3.6. INR is 1.6. AST is 257, ALT is 630. ASSESSMENT: 1. Acute exacerbation of chronic systolic heart failure. 2. Acute renal failure. 3. Acute liver failure. PLAN: I am going to stop the dobutamine at this time. He has already been on dobutamine for 3 days. Continue the Lasix drip and continue rest of his medications. MMODL / IJN: [id number] /
--- NOTE | 2019-01-27 14:47 | P.PN ---
Subjective Progress Note Date: 01/27/19 This 63-year-old male patient was being seen in follow-up in intensive care unit regarding his congestion heart failure and fluid overload. Noted the patient has chronic systolic heart failure with an ejection fraction of 20%. The patient has chronic lower extremity edema and fluid overload in addition to ones lower extremity. He is also battling a cellulitis of the left lower extremity. He does have chronic sores and wounds especially the ones in the left lower extremity which are currently dressed appropriately and the patient is also covered with antibiotics. In summary, the patient is improving. He is currently on 6 L of oxygen by nasal cannula. He is receivingLasix at 5 mg an hour and is also producing adequate amount of urine output and he has been a negative fluid balance. The patient's chest x-ray from yesterday still showing pulmonary vessel congestion/edema, although, there has been some improvement in his oxygenation and his breathing better and is less short of breath. As for the lower extremity edema, it is improving. He continues to have some erythema and warmth the medial aspect of the left thigh secondary to his underlying cellulitis. Cultures from the wound have shown group G strep and staph. The patient also has been antibiotics including a combination of cefazolin and clindamycin. He is on long-term anticoagulation and he is on warfarin and his INR today is at 1.7 which is lower compared to yesterday. He continues to improve in terms of his renal function. Creatinine is down to 1.6. Electrolytes all within normal limits. LFTs are also improving with the AST is down to 257 and ALT is down to 632. No nausea. No vomiting. No emesis. No al tered mentation. No other complaints otherwise for now. Objective - Vital Signs Vital signs: Vital Signs Temp 97.8 F 01/27/19 04:00 Pulse 93 01/27/19 14:00 Resp 19 01/27/19 14:00 BP 109/76 01/27/19 14:00 Pulse Ox 96 01/27/19 14:00 Intake & Output 01/26/19 01/27/19 01/27/19 18:59 06:59 18:59 Intake Total 827.123 155 649.667 Output Total 2505 2100 1495 Balance -1677.877 -1945 -845.333 Weight 150.4 kg Intake: IV 210 55 155 .9 5ml/hour 60 55 5 Clindamycin 900 mg In 100 50 Dextrose 5% in Water 50 ml @ 50 mls/hr IVPB Q8HR [facility] Rx#:[id number] cefazolin 50 100 Intake, IV Titration 177.123 100 294.667 Amount DOBUTamine DRIP 500 mg In 177.123 250 Dextrose/Water 1 250ml. bag @ 2.5 MCG/KG/MIN 11. 73 mls/hr IV .[id number] [facility] Rx#:[id number] Furosemide 100 mg In 100 44.667 Sodium Chloride 0.9% 90 ml @ 5 MG/HR 5 mls/hr IV .Q20H [facility] Rx#:[id number] Oral 440 200 Output: Urine 2505 2100 1495 Other: Voiding Method Indwelling Catheter Indwelling Catheter Indwelling Catheter # Voids 0 0 # Bowel Movements 1 1 - Exam Gen. appearance is calm and comfortable active distress morbidly obese with a BMI of 50.4 Head exam was generally normal. There was no scleral icterus or corneal arcus. Mucous membranes were moist. Neck was supple and without jugular venous distension, thyromegaly, or carotid bruits. Carotids were easily palpable bilaterally. There was no adenopathy. The patient has a Mallampati class IV. There is no goiter or neck masses. Lungs sounds are diminished bilaterally especially in lung bases along with some bibasilar crackles. Heart sounds are regular rate and rhythm. There is a faint systolic ejection murmur that can be heard along the left sternal border. No rubs. No gallop rhythm. Abdomen is obese soft nontender. Organs cannot be accurately palpated. There is no direct tenderness or rebound tensile guarding at this point in time. Bowel sounds are present. Extremities revealed +1-2 pitting edema. Lower extremities are wrapped. The erythema is more on the left especially in the area between the knee and the mediastinum and anterior thigh. There are some older ones and sloughed skin in the medial aspect of the foot along the area of the malleolus extending post eriorly in the area needs to be debrided. The pulses in lower extremities are diminished. There are palpable. No cyanosis. There is poor toenail hygiene. Neurologically, the patient is awake and alert and there is no focal neurological deficit. Psychiatrically, there is no significant anxiety or depression at this point in time Skin the patient has chronic cellulitis of the left lower extremity along with erythema and warmth especially in the medial aspect of the left thigh in addition to chronic wounds in lower extremities more so on the left lower extremity at the level of the left malleolus. The overlying skin is sloughed, the underlying skin his forming units healthy. The areas of skin needs to be debrided. - Labs CBC & Chem 7: 01/27/19 04:23 01/27/19 04:23 Labs: Abnormal Lab Results - Last 24 Hours (Table) 01/27/19 01/27/19 01/27/19 Range/Units 04:23 04:23 09:09 WBC 15.0 H (3.8-10.6) k/uL RDW 16.9 H (11.5-15.5) % Plt Count 123 L (150-450) k/uL PT 17.1 H (9.0-12.0) sec INR 1.7 H (<1.2) BUN 88 H (9-20) mg/dL Creatinine 1.68 H (0.66-1.25) mg/dL Total Bilirubin 3.1 H (0.2-1.3) mg/dL AST 257 H (17-59) U/L ALT 632 H (21-72) U/L Alkaline Phosphatase 159 H (38-126) U/L Total Protein 5.9 L (6.3-8.2) g/dL Albumin 3.1 L (3.5-5.0) g/dL Microbiology - Last 24 Hours (Table) 01/21/19 11:35 Blood Culture - Final Blood No Growth after 144 hours 01/21/19 18:50 Anaerobic Culture - Final Leg - Left Anaerobic Gram Positive Cocci Anaerobic Gm Negative Bacilli 01/21/19 16:28 Blood Culture - Preliminary Blood No Growth after 120 hours Assessment and Plan Plan: 1 acute on chronic systolic heart failure with an ejection fraction of 20-25% with obvious signs of fluid overload 2 acute on chronic hypoxic respiratory failure currently on 60s about 2 by nasal cannula 3 acute kidney injury improving and the creatinine is down to 1.6 4 chronic lower extremity edema 5 cellulitis left lower extremity with MSSA and strep group G currently on accommodation of antibiotics, improving. Doppler of the lower extremity is negative 6 leukocytosis secondary to above 7 hypertension 8 hyperlipidemia 9 obesity with BMI of 50.4 10 hypothyroidism, improving 11 paroxysmal atrial fibrillation the patient has been on long-term articulation with warfarin with a subtherapeutic PT/INR on today's evaluation 12 left bundle branch block pattern along with episodic A. fib/flutter 13 abnormal LFTs, improving Plan Continue antibiotic ventilation with warfarin. The patient will be given 2.5 mg today. Repeat PT/INR in the morning. Continue antibiotics. Fluid restriction. Continue diuresis for another 24 hours. The neck fluid balance has been -4.2 L over the past 24 hours and the patient has developed another 3.6 L of negative fluid balance. We are going to continue diuresis for now. Monitor electro lytes. Monitor the body weight. Local wound care to the lower extremities. Monitor cellulitis. We'll continue to follow. Keep in ICU for another 24 hours. Wean down the FiO2 to maintain a saturation above 90%.
--- NOTE | 2019-01-27 15:14 | CDI ---
Documentation Clarification Form Date: 01/27/2019 2:50:15 PM From: Beth Alanis RN, CCDS Admit Date: 01/21/2019 1:52:00 PM Patient Name: Omid López Visit Number: [id number] Discharge Date: ATTENTION: The Clinical Documentation Specialists (CDI) and [facility] Coding Staff appreciate your assistance in clarifying documentation. Please respond to the clarification below the line at the bottom and electronically sign. The CDI & [facility] Coding staff will review the response and follow-up if needed. Please note: Queries are made part of the Legal Health Record. If you have any questions, please contact the author of this message via ITS. Dr. Carter Marte The diagnosis sepsis was documented in the ED, History and Physical and ongoing progress notes through 01/22/2019 but is not noted in subsequent documentation. 01/22 ID (Dr. Castillo) Patient admitted to hospital with sepsis. Source is acute left lower extremity cellulitis in this patient who did have diffuse swelling and redness. History/Risk Factors: Coronary artery disease, Heart Failure, Hypertension Clinical Indicators: 63-year-old present with difficulty in breathing and leg swelling. Bilateral lower extremity with pedal edema 3+. left lower leg erythema and occasional ulcer. Emergency department note: Patient dose meet sepsis criteria. WBC 18.8, BUN 81, Creatinine 3.38, AST 2320, ALT 1914, BNP 73101, Troponin I 0.324 Treatment: Cefepime IV, clindamycin IV Monitor Labs: CBC, Lytes, BUN, CR Please clarify if the Sepsis was: Present/active this admission Treated and resolved this admission Ruled out Other, please specify Clinically unable to determine (Last Query Form Revision: November 2018) sepsis,POA MTDD
--- NOTE | 2019-01-27 16:24 | PN ---
PROGRESS NOTE The patient is seen for followup for acute kidney injury. Currently patient is being diuresed. He is maintained on Lasix drip. He has had good urine output with significant decrease in weight. He states he is feeling better. No significant shortness of breath noted. Patient's weight is down by about 2 kg. Twenty-four hour urine output noted at 4.6 L. EXAMINATION: Today patient is comfortable. Blood pressure this morning was 91/66, heart rate 92 per minute, he is afebrile. Examination of the heart S1, S2. Examination of the lungs, decreased breath sounds at bases. Abdomen is soft, morbidly obese. Examination of lower extremities shows bilateral extremities to be wrapped, chronic skin changes noted. There is erythema in the left lower extremity which is marked and not increasing. [employer] exam grossly intact. LABS: Show sodium 137, potassium 3.6, BUN 88, serum creatinine 1.68, ALT 632, and AST 257. ASSESSMENT: 1. Acute kidney injury, nonoliguric, currently improving, mainly cardiorenal syndrome. 2. Chronic kidney disease stage 3 secondary to cardiorenal syndrome, baseline creatinine 1.2-1.4 mg/dL, and nephrosclerosis. 3. Congestive heart failure, acute on top of chronic, mainly systolic. 4. Cardiomyopathy, ejection fraction less than 20%. 5. Severe volume overload, slowly improving. 6. Shock liver secondary to hypoperfusion, slowly improving. Liver enzymes are decreasing. 7. Hyperkalemia associated with acute kidney injury, now resolved. 8. Anion gap metabolic acidosis secondary to renal failure, now improved. PLAN: Continue with the Lasix drip for now. I will discontinue the sodium bicarb as well secondary to potential of metabolic alkalosis from the diuresis as well. Discontinue sodium bicarb. Continue with Lasix drip. Repeat labs in a.m. MMODL / IJN: [id number] /
[2019-01-27] MEDS: WARFARIN 2.5 MG TAB PO SCH (17:27)
--- NOTE | 2019-01-27 20:51 | P.PN ---
Progress Note - Text Progress Note Date: 01/27/19 Interval history: Patient presents with symptoms of increasing shortness of breath. Also some s welling of the left leg with discoloration. Patient admitted with the diagnosis ofAcute on chronic congestive heart failure exacerbation with EF of 2025%, persistent atrial flutter fibrillation, acute ischemic hepatitis from hypotension, acute left lower extremity cellulitis. On 01/24/2019 patient was moved to the ICU for being hypotensive. Started on IV Lasix drip and IV dobutamine. Today-in the ICU. Dobutamine drip was discontinued earlier today. Remains on 5 mg/hour of Lasix drip. Making good urine output. Currently in bed. Propped up in bed, watching television. Left lower extremity cellulitis is slowly improving Review of systems: Was done for constitutional, cardiovascular, GI, pulmonary. relevant finding as above Active Medications Clindamycin Phosphate 900 mg/ (Dextrose/Water) 56 mls @ 50 mls/hr IVPB Q8HR [facility] Last Admin: 01/27/19 16:00 Dose: 50 mls/hr Documented by: Furosemide 100 mg/ Sodium (Chloride) 100 mls @ 5 mls/hr IV .Q20H [facility] Last Admin: 01/27/19 20:14 Dose: 5 mg/hr, 5 mls/hr Documented by: Cefazolin Sodium 2 gm/ Sodium (Chloride) 50 mls @ 100 mls/hr IVPB Q12HR [facility] Last Admin: 01/27/19 20:18 Dose: 100 mls/hr Documented by: Levothyroxine Sodium (Synthroid) 25 mcg PO SUMOWEFRSA [facility] Last Admin: 01/27/19 07:35 Dose: 25 mcg Documented by: Metoprolol Tartrate (Lopressor) 50 mg PO BID [facility] Last Admin: 01/27/19 20:18 Dose: 50 mg Documented by: Midodrine (Proamatine) 5 mg PO AC-TID [facility] Last Admin: 01/27/19 17:27 Dose: 5 mg Documented by: Nitroglycerin (Nitrostat) 0.4 mg SUBLINGUAL Q5M PRN PRN Reason: Chest Pain Sodium Chloride (Saline Flush) 10 ml IV BID [facility] Last Admin: 01/27/19 20:16 Dose: 10 ml Documented by: Warfarin Sodium (Coumadin) 2.5 mg PO DAILY@1800 [facility] Last Admin: 01/27/19 17:27 Dose: 2.5 mg Documented by: Physical examination: VITAL SIGNS: 98, 82, 11, 102/73, 96% on 6 L GENERAL: Propped up in bed, awake EYES: Pupils equal. Conjunctiva normal. HEENT: External appearance of nose and ears normal, oral cavity grossly normal. NECK: JVD unable to assess masses not palpable. HEART: First and second heart sounds are normal; some edema. LUNGS:[ Respiratory rate increased, decreased breath sounds. ABDOMEN: Soft, distended, nontender, liver spleen not palpable, no masses palpable. Sims catheter in place PSYCH: Alert and oriented x3; mood and affect more awake DERMATOLOGICAL: Dressing over the left lower extremity INVESTIGATIONS, reviewed in the clinical context: White count 15 hemoglobin 14.2 INR 1.7 potassium 3.6.88 creatinine 1.68 AST to 57 ALT 632 Previous testing: Troponin I 0.20 to Abdominal ultrasound-unremarkable Venous Doppler-negative for DVT in the left lower extremity 2-D echo-EF less than 20%, severe concentric left medical hypertrophy 2-D echo-borderline hepatomegaly, poor study EKG tracing-PVC with left bundle-branch block, atrial flutter fibrillation White count 20.7 hemoglobin 14.3 platelets 120 underwent 0.7 potassium 5.3 bun 108 creatinine 3.77 AST 1734 ALT 2214 albumin 3.1 Assessment: -Acute on chronic congestive heart failure exacerbation from systolic dysfunction EF 20-25%, decompensated, slow to respond, remains on Lasix drip. Dobutamine drip was discontinued earlier today. -Persistent atrial fibrillation/flutter -Left bundle-branch block -Acute ischemic hepatitis from hypotension, started to improve -Morbid obesity BMI 52.3 -Hypoalbuminemia has an acute phase reactant -Acute left lower extremity cellulitis -Hyperlipidemia -Essential hypertension -Chronic kidney disease stage III from nephrosclerosis at her baseline -Acute kidney injury, likely prerenal from cardiorenal syndrome, slowly improving -Bilateral lower extremity venous insufficiency and chronic venous stasis -Troponin leak from chronic kidney disease, no evidence of acute coronary syndrome -Acute Coumadin toxicity, with no evidence of bleeding in the setting of acute hepatitis, INR down to 1.7 Plan: Continue current medication treatment plan. Follow electrolytes I's and O's closely. Remains on Lasix drip. Other medications required to. Topical wound care of lower extremity to continue. Care was discussed with the patient.
--- NOTE | 2019-01-27 22:51 | PN ---
PROGRESS NOTE DATE OF SERVICE: 01/27/2019 REASON FOR FOLLOWUP: Left lower extremity cellulitis and wound. INTERVAL HISTORY: The patient was seen on rounds this morning. The patient has been afebrile. He was breathing comfortably. Denies having any chest pain or cough. No nausea, no vomiting. No abdominal pain. No pain to the left leg area. PHYSICAL EXAMINATION: Blood pressure is 102/86, pulse of 73, temperature 97.7. General description is a middle-aged male lying in bed in no distress. Respiratory system: Unlabored breathing with decreased breath sounds in the bases. No wheeze. Heart S1, S2. Regular rate and rhythm. Abdomen soft, no tenderness. LAB: White count is down to 15,000. Creatinine is down to 1.68. Liver enzymes remain to be elevated but have shown improvement. DIAGNOSTIC IMPRESSION AND PLAN: Patient with a left leg wound with secondary cellulitis, culture positive for MSSA, group B strep and anaerobic gram-positive and gram-negative bacilli. Was noted to have slight more redness today. Antibiotic will adjust Unasyn 3 g q.6 hours and monitor clinical course closely. Continue supportive care. MMODL / IJN: [id number] /
[2019-01-27] MEDS: AMPICILLIN-SULBACTAM 3 GM in SODIUM CHLORIDE 0.9% 100 ML IVPB SCH (23:27)
[2019-01-28 05:36] LABS: INR 1.8 (<1.2); Prothrombin Time 17.8 sec (9.0-12.0)
[2019-01-28 05:43] LABS: Calcium 8.8 mg/dL (8.4-10.2)
[2019-01-28 05:46] LABS: Potassium 4.9 mmol/L (3.5-5.1)
[2019-01-28] MEDS: AMPICILLIN-SULBACTAM 3 GM in SODIUM CHLORIDE 0.9% 100 ML IVPB SCH ×2 (05:53→11:45)
[2019-01-28 06:29] LABS: Anisocytosis Slight; Basophils # (A) 0.1 k/uL (0-0.2); Basophils % (A) 1 %; Eosinophils # (A) 0.5 k/uL (0-0.7); Eosinophils % (A) 2 %; HCT 48.3 % (39.0-53.0); HGB 15.3 gm/dL (13.0-17.5); Hypochromasia Slight; Lymphocytes # (A) 0.7 k/uL (1.0-4.8); Lymphocytes % (A) 4 %; MCH 29.9 pg (25.0-35.0); MCHC 31.8 g/dL (31.0-37.0); MCV 93.9 fL (80.0-100.0); Mean Platelet Volume 12.1; Monocytes # (A) 0.9 k/uL (0-1.0); Monocytes % (A) 4 %; Neutrophils # (A) 17.1 k/uL (1.3-7.7); Neutrophils % (A) 88 %; Platelet Count 141 k/uL (150-450); RBC 5.14 m/uL (4.30-5.90); RDW 17.1 % (11.5-15.5); WBC 19.4 k/uL (3.8-10.6)
[2019-01-28] MEDS: MIDODRINE 5 MG TAB PO SCH ×3 (06:55→17:02)
[2019-01-28 07:27] LABS: Large Platelets Present
[2019-01-28 07:28] LABS: Polychromasia Present
[2019-01-28 07:29] LABS: Poikilocytosis (M) Present
--- NOTE | 2019-01-28 08:46 | P.PN ---
Subjective Progress Note Date: 01/28/19 This 63-year-old male patient was being seen in follow-up in intensive care unit regarding his congestion heart failure and fluid overload. Noted the patient has chronic systolic heart failure with an ejection fraction of 20%. The patient has chronic lower extremity edema and fluid overload in addition to ones lower extremity. He is also battling a cellulitis of the left lower extremity. He does have chronic sores and wounds especially the ones in the left lower extremity which are currently dressed appropriately and the patient is also covered with antibiotics. In summary, the patient is improving. He is currently on 6 L of oxygen by nasal cannula. He is receivingLasix at 5 mg an hour and is also producing adequate amount of urine output and he has been a negative fluid balance. The patient's chest x-ray from yesterday still showing pulmonary vessel congestion/edema, although, there has been some improvement in his oxygenation and his breathing better and is less short of breath. As for the lower extremity edema, it is improving. He continues to have some erythema and warmth the medial aspect of the left thigh secondary to his underlying cellulitis. Cultures from the wound have shown group G strep and staph. The patient also has been antibiotics including a combination of cefazolin and clindamycin. He is on long-term anticoagulation and he is on warfarin and his INR today is at 1.7 which is lower compared to yesterday. He continues to improve in terms of his renal function. Creatinine is down to 1.6. Electrolytes all within normal limits. LFTs are also improving with the AST is down to 257 and ALT is down to 632. No nausea. No vomiting. No emesis. No al tered mentation. No other complaints otherwise for now. On today's evaluation of 01/28/2019, the patient is awake and alert. He has no specific complaints. I noted that cellulitis and left lower extremity is progressively getting worse. After that cellulitis above the prather that were placed earlier and is extending to his upper thigh and the lower abdominal area. His white cell count is also elevated. Based on that, the cefazolin and clindamycin were discontinued and the patient was placed on IV Unasyn 3 g every 6 hours. He remains on Lasix drip at 5 mg an hour. The net fluid balance over the past 24 hours of been -850 mL. Lower extremity edema is improved. He remains in atrial fibrillation. PT/INR is subtherapeutic. Heart rate is slightly above 100. No nausea. No vomiting. He was on 6 L of oxygen by nasal cannula and FiO2 was not found to 4 L and we are in the The process of weaning down the FiO2 further. His chest x-ray shows cardiomegaly and mild pulmonary vessel congestion. As for rate control, the patient is on and the patient's creatinine is stable for now at 1.67. LFTs were slowly improving. Objective - Vital Signs Vital signs: Vital Signs Temp 99.5 F 01/28/19 04:00 Pulse 101 H 01/28/19 07:00 Resp 16 01/28/19 07:00 BP 109/85 01/28/19 04:00 Pulse Ox 98 01/28/19 07:00 Intake & Output 01/27/19 01/28/19 01/28/19 18:59 06:59 18:59 Intake Total 1399.667 351.083 10 Output Total 1895 710 50 Balance -495.333 -358.917 -40 Weight 150.1 kg Intake: IV 155 200 10 .9 5ml/hour 5 50 10 Ampicillin-Sulbactam 3 gm 100 In Sodium Chloride 0.9% 100 ml @ 200 mls/hr IVPB Q6HR [facility] Rx#:[id number] Clindamycin 900 mg In 50 Dextrose 5% in Water 50 ml @ 50 mls/hr IVPB Q8HR [facility] Rx#:[id number] cefazolin 100 50 Intake, IV Titration 294.667 51.083 Amount DOBUTamine DRIP 500 mg In 250 Dextrose/Water 1 250ml. bag @ 2.5 MCG/KG/MIN 11. 73 mls/hr IV .[id number] [facility] Rx#:[id number] Furosemide 100 mg In 44.667 51.083 Sodium Chloride 0.9% 90 ml @ 5 MG/HR 5 mls/hr IV .Q20H [facility] Rx#:[id number] Oral 950 100 Output: Urine 1895 710 50 Other: Voiding Method Indwelling Catheter Indwelling Catheter # Voids 0 - Exam Gen. appearance is calm and comfortable active distress morbidly obese with a BMI of 50.4 Head exam was generally normal. There was no scleral icterus or corneal arcus. Mucous membranes were moist. Neck was supple and without jugular venous distension, thyromegaly, or carotid bruits. Carotids were easily palpable bilaterally. There was no adenopathy. The patient has a Mallampati class IV. There is no goiter or neck masses. Lungs sounds are diminished bilaterally especially in lung bases along with some bibasilar crackles. Heart sounds are regular rate and rhythm. There is a faint systolic ejection murmur that can be heard along the left sternal border. No rubs. No gallop rhythm. Abdomen is obese soft nontender. Organs cannot be accurately palpated. There is no direct tenderness or rebound tensile guarding at this point in time. Bowel sounds are present. Extremities revealed +1-2 pitting edema. Lower extremities are wrapped. The erythema is more on the left especially in the area between the knee and the mediastinum and anterior thigh. There are some older ones and sloughed skin in the medial aspect of the foot along the area of the malleolus extending posteriorly in the area needs to be debrided. The pulses in lower extremities are diminished. There are palpable. No cyanosis. There is poor toenail hygi millie. Neurologically, the patient is awake and alert and there is no focal neurological deficit. Psychiatrically, there is no significant anxiety or depression at this point in time Skin the patient has chronic cellulitis of the left lower extremity along with erythema and warmth especially in the medial aspect of the left thigh in addition to chronic wounds in lower extremities more so on the left lower extremity at the level of the left malleolus. The overlying skin is sloughed, the underlying skin his forming units healthy. The areas of skin needs to be debrided. - Labs CBC & Chem 7: 01/28/19 04:42 01/28/19 04:42 Labs: Abnormal Lab Results - Last 24 Hours (Table) 01/27/19 01/28/19 01/28/19 Range/Units 09:09 04:42 04:42 WBC 19.4 H (3.8-10.6) k/uL RDW 17.1 H (11.5-15.5) % Plt Count 141 L (150-450) k/uL Neutrophils # 17.1 H (1.3-7.7) k/uL Lymphocytes # 0.7 L (1.0-4.8) k/uL PT 17.1 H 17.8 H (9.0-12.0) sec INR 1.7 H 1.8 H (<1.2) Sodium (137-145) mmol/L BUN (9-20) mg/dL Creatinine (0.66-1.25) mg/dL Glucose (74-99) mg/dL 01/28/19 Range/Units 04:42 WBC (3.8-10.6) k/uL RDW (11.5-15.5) % Plt Count (150-450) k/uL Neutrophils # (1.3-7.7) k/uL Lymphocytes # (1.0-4.8) k/uL PT (9.0-12.0) sec INR (<1.2) Sodium 134 L (137-145) mmol/L BUN 86 H (9-20) mg/dL Creatinine 1.65 H (0.66-1.25) mg/dL Glucose 104 H (74-99) mg/dL Microbiology - Last 24 Hours (Table) 01/21/19 16:28 Blood Culture - Final Blood No Growth after 144 hours 01/21/19 11:35 Blood Culture - Final Blood No Growth after 144 hours Assessment and Plan Plan: 1 acute on chronic systolic heart failure with an ejection fraction of 20-25% with obvious signs of fluid overload 2 acute on chronic hypoxic respiratory failure currently on 4liters by nasal cannula 3 acute kidney injury improving and the creatinine is down to 1.67 4 chronic lower extremity edema my improving 5 cellulitis left lower extremity with MSSA and strep group G currently on accommodation of antibiotics, on Unasyn. 6 leukocytosis secondary to above, with a rise in the white cell count up to 19,000 and the patient is developing worsening cellulitis of the left lower extremity extending to his upper thigh and lower abdominal area. 7 hypertension 8 hyperlipidemia 9 obesity with BMI of 50.4 10 hypothyroidism, improving 11 paroxysmal atrial fibrillation the patient has been on long-term articulation with warfarin with a subtherapeutic PT/INR on today's evaluation 12 left bundle branch block pattern along with episodic A. fib/flutter 13 abnormal LFTs, improving Plan To new Unasyn. Watch for cellulitis. Watch the white cell count. Watch the fever pattern. May need to step of the antibiotic coverage and further if the cellulitis progresses. Infectious diseases on the case. Discontinue the Lasix drip. Put the patient on IV Lasix 40 mg every 4 hours. Monitor the PT/INR. Continue anticoagulation with warfarin. Local wound care to his left lower extremity. May need debridement. We'll continue to follow. He'll be kept in ICU for now.
[2019-01-28] MEDS: DILTIAZEM ORAL 30 MG TAB PO SCH ×3 (09:27→20:51)
[2019-01-28] MEDS: METOPROLOL TARTRATE 50 MG TAB PO SCH ×2 (09:27→20:50)
[2019-01-28] MEDS: FUROSEMIDE 10 MG/ML 4 ML VIAL IV SCH (09:27)
--- NOTE | 2019-01-28 09:50 | PN ---
PROGRESS NOTE Omid is a 63-year-old gentleman who was admitted to hospital with acute exacerbation of chronic systolic heart failure, renal failure and liver failure. He is currently on Lasix drip and has made excellent recovery so far on the Lasix drip. Heart rate is somewhat poorly controlled but overall had been well controlled. On exam, heart rate is 100 beats per minute, blood pressure is 109/85, respiratory rate is 18. Chest exam reveals diminished air entry at the bases. Heart exam reveals first and second heart sounds, irregular rhythm and a systolic murmur at the left lower sternal border. Abdomen is soft. Examination of the extremities reveals bilateral cellulitis, ulceration, and edema, but this has improved significantly from his initial presentation. His leg wound cultures are positive. Blood cultures have been negative. ASSESSMENT: 1. Chronic persistent atrial fibrillation. 2. Acute exacerbation of chronic systolic heart failure. 3. Renal failure. 4. Liver failure. PLAN: His INR today is 1.8. I will give him 2.5 mg of Coumadin. BUN is 86, creatinine is 1.6. Potassium is 4.9. We will continue with the Lasix drip for now. MMODL / IJN: [id number] /
--- NOTE | 2019-01-28 09:54 | XR ---
EXAMINATION TYPE: XR chest 1V DATE OF EXAM: 01/28/2019 COMPARISON: 01/27/2019 HISTORY: Shortness of breath and congestive heart failure TECHNIQUE: Single frontal view of the chest is obtained. FINDINGS: Mild interstitial pulmonary edema remains. Vascular congestion is seen with engorgement ce ntral pulmonary vasculature. Bibasilar airspace disease again likely represents atelectasis. Trace pl eural effusions are suspected. Cardia mucinous fluid is enlarged. Patient's chin partially tears the lung apices. No sizable pneumothorax. IMPRESSION: New probable trace pleural effusions and stable interstitial edema with pulmonary vascul ar congestion. Again correlate for congestive heart failure.
[2019-01-28 11:19] VITALS: BMI 50.3
[2019-01-28] MEDS ORDERED: methylPREDNISolone SOD SUCCI 125 MG/2 ML VIAL IV STA (13:01)
[2019-01-28] MEDS ORDERED: FUROSEMIDE 10 MG/ML 4 ML VIAL IV SCH ×2 (16:00)
[2019-01-28] MEDS: WARFARIN 2.5 MG TAB PO SCH (17:01)
[2019-01-28] MEDS: metroNIDAZOLE 500 MG TAB PO SCH ×2 (17:02→20:50)
--- NOTE | 2019-01-28 21:05 | P.PN ---
Progress Note - Text Progress Note Date: 01/28/19 Interval history: Patient presents with symptoms of increasing shortness of breath. Also some s welling of the left leg with discoloration. Patient admitted with the diagnosis ofAcute on chronic congestive heart failure exacerbation with EF of 2025%, persistent atrial flutter fibrillation, acute ischemic hepatitis from hypotension, acute left lower extremity cellulitis. On 01/24/2019 patient was moved to the ICU for being hypotensive. Started on IV Lasix drip and IV dobutamine. Dobutamine drip was discontinued on January 27. Today-in the ICU. On Lasix drip. Maintaining good urine output. Propped up. Unasyn was adjusted to 3 g every [address] Castillo. Patient did develop a rash. Started on daptomycin. Unasyn was discontinued. Review of systems: Was done for constitutional, cardiovascular, GI, pulmonary. relevant finding as above Active Medications Diltiazem HCl (Cardizem Oral) 30 mg PO TID [facility] Last Admin: 01/28/19 20:51 Dose: Not Given Documented by: Furosemide (Lasix) 40 mg IV DAILY [facility] Last Admin: 01/28/19 09:27 Dose: 40 mg Documented by: Daptomycin 600 mg/ Sodium (Chloride) 50 mls @ 100 mls/hr IVPB Q24H [facility]; Protocol Last Admin: 01/28/19 14:31 Dose: 100 mls/hr Documented by: Levothyroxine Sodium (Synthroid) 25 mcg PO SUMOWEFRSA [facility] Last Admin: 01/27/19 07:35 Dose: 25 mcg Documented by: Metoprolol Tartrate (Lopressor) 50 mg PO BID [facility] Last Admin: 01/28/19 20:50 Dose: 50 mg Documented by: Metronidazole (Flagyl) 500 mg PO TID [facility] Last Admin: 01/28/19 20:50 Dose: 500 mg Documented by: Midodrine (Proamatine) 5 mg PO AC-TID [facility] Last Admin: 01/28/19 17:02 Dose: 5 mg Documented by: Nitroglycerin (Nitrostat) 0.4 mg SUBLINGUAL Q5M PRN PRN Reason: Chest Pain Sodium Chloride (Saline Flush) 10 ml IV BID [facility] Last Admin: 01/28/19 09:32 Dose: 10 ml Documented by: Warfarin Sodium (Coumadin) 2.5 mg PO DAILY@1800 [facility] Last Admin: 01/28/19 17:01 Dose: 2.5 mg Documented by: Physical examination: VITAL SIGNS: 98.2, 90, 15, 88/63, 95% on 3 L GENERAL: Propped up in bed, awake EYES: Pupils equal. Conjunctiva normal. HEENT: External appearance of nose and ears normal, oral cavity grossly normal. NECK: JVD unable to assess masses not palpable. HEART: First and second heart sounds are normal; some edema. LUNGS:[ Respiratory rate increased, decreased breath sounds. ABDOMEN: Soft, distended, nontender, liver spleen not palpable, no masses palpable. Sims catheter in place PSYCH: Alert and oriented x3; mood and affect more awake DERMATOLOGICAL: Dressing over the left lower extremity, rash INVESTIGATIONS, reviewed in the clinical context: White count 19.4 hemoglobin 15.3 platelets 141 INR 1.8 potassium 4.9 bun 86 creatinine 1.65 Previous testing: Troponin I 0.20 to Abdominal ultrasound-unremarkable Venous Doppler-negative for DVT in the left lower extremity 2-D echo-EF less than 20%, severe concentric left medical hypertrophy 2-D echo-borderline hepatomegaly, poor study EKG tracing-PVC with left bundle-branch block, atrial flutter fibrillation White count 20.7 hemoglobin 14.3 platelets 120 underwent 0.7 potassium 5.3 bun 108 creatinine 3.77 AST 1734 ALT 2214 albumin 3.1 Left leg culture-Staphylococcus aureus, beta hemolytic strep group G Assessment: -Acute on chronic congestive heart failure exacerbation from diastolic and systolic dysfunction EF 20-25%, decompensated, slow to respond, remains on Lasix drip. Dobutamine drip was discontinued on January 27 -Persistent atrial fibrillation/flutter -Left bundle-branch block -Acute ischemic hepatitis from hypotension, started to improve -Morbid obesity BMI 52.3 -Hypoalbuminemia has an acute phase reactant -Acute left lower extremity cellulitis, with MSSA and beta-hemolytic strep group G -Hyperlipidemia -Essential hypertension -Chronic kidney disease stage III from nephrosclerosis at her baseline -Acute kidney injury, likely prerenal from cardiorenal syndrome, slowly improving -Bilateral lower extremity venous insufficiency and chronic venous stasis -Troponin leak from chronic kidney disease, no evidence of acute coronary syndrome -Acute Coumadin toxicity, with no evidence of bleeding in the setting of acute hepatitis, INR down to 1.7 Plan: Remains a Lasix drip. Started on daptomycin. Unasyn was discontinued because of possible rash. Otherwise patient looking more pep.. Eating better. To be moved out of the ICU. 2 telemetry floor. Care was discussed with the patient.
--- NOTE | 2019-01-28 22:34 | PN ---
PROGRESS NOTE Patient is seen for followup for acute kidney injury mainly cardiorenal currently. He is currently being diuresed. The patient had been on Lasix drip which is now discontinued. Renal function has improved. Serum creatinine staying at about 1.6 mg/dL for the last 2 days. Peak creatinine was at 3.38 mg/dL. PHYSICAL EXAMINATION: On examination today, blood pressure was 109/78, heart rate 90 per minute, patient is afebrile. Examination of the heart S1, S2. Examination of the lungs, bilateral breath sounds are heard. Abdomen is soft, nontender, obese. Examination of lower extremities shows edema in the left leg, which seems to have progressed up to his abdomen and his back. There is itching noted in the back as well. Left leg is currently wrapped. LABS: Hemoglobin 15.3, sodium 134, potassium 4.9, BUN 86, serum creatinine 1.65. ASSESSMENT: 1. Acute kidney injury cardiorenal currently improved, renal function staying stable for the last couple of days. Currently off Lasix drip and maintained on IV push Lasix. 2. Cellulitis left lower extremity, maintained on daptomycin now, being followed by ID. 3. Rash secondary to worsening cellulitis versus a drug rash. 4. Cardiomyopathy, ejection fraction 20 to 25%. 5. Paroxysmal atrial fibrillation maintained on anticoagulation. PLAN: Continue with current dose of Lasix, increase to 40 mg IV b.i.d. tomorrow if urine output is on the lower side. The patient continues to have significant edema. MMODL / IJN: [id number] /
--- NOTE | 2019-01-28 23:31 | PN ---
PROGRESS NOTE DATE OF SERVICE: 01/28/2019 REASON FOR FOLLOWUP: 1. Left lower extremity cellulitis. 2. Drug rash. INTERVAL HISTORY: The patient clinically worse complicated by breaking out in a generalized body rash and itching. Denies having any tongue swelling, difficulty breathing. The patient denies having any abdominal pain. No nausea, vomiting and no diarrhea. REVIEW OF SYSTEMS: Positive points as mentioned above. Rest of systems negative. Past medical and surgical history reviewed. Medication reviewed. PHYSICAL EXAMINATION: Blood pressure is 96/67 with a pulse of 83, temperature 98, he is 92% on room air. General description is a middle-aged male up in the bed in no distress. HEENT examination shows no pallor or scleral icterus. Oral mucosal membranes dry. LUNGS: Unlabored breathing. Decreased breath sounds in the bases. No wheeze. Heart S1, S2. Regular rate and rhythm. Abdomen soft, no tenderness. Left leg swelling and redness. Skin examination showed generalized maculopapular rash. LABS: Hemoglobin is 15.1, white count 19.4 with a BUN of 86, creatinine is 1.65. DIAGNOSTIC IMPRESSION AND PLAN: 1. Patient with left lower extremity cellulitis. Culture positive for MSSA and strep and anaerobes in this patient was started on Unasyn yesterday. Previously was on cefazolin and Clinda. Now with developing of significant rash, likely drug related. Unasyn has been discontinued. He will be given 1 dose of Solu-Medrol and Benadryl. 2. Patient with left lower extremity cellulitis. Antibiotic was switched to daptomycin 6 mg daily and follow clinical course closely. MMODL / IJN: [id number] /
[2019-01-29] MEDS: LEVOTHYROXINE 25 MCG TAB PO SCH (06:41)
[2019-01-29] MEDS: MIDODRINE 5 MG TAB PO SCH ×3 (06:41→18:29)
[2019-01-29 07:24] LABS: Prothrombin Time 19.9 sec (9.0-12.0)
[2019-01-29] MEDS: metroNIDAZOLE 500 MG TAB PO SCH ×3 (09:07→22:23)
[2019-01-29] MEDS: METOPROLOL TARTRATE 50 MG TAB PO SCH ×2 (09:07→21:03)
[2019-01-29] MEDS: FUROSEMIDE 10 MG/ML 4 ML VIAL IV SCH (09:07)
[2019-01-29] MEDS: DILTIAZEM ORAL 30 MG TAB PO SCH ×3 (09:16→22:23)
[2019-01-29 10:47] LABS: Calcium 9.2 mg/dL (8.4-10.2); Potassium 3.5 mmol/L (3.5-5.1)
[2019-01-29] MEDS: diphenhydrAMINE 25 MG CAP PO SCH ×2 (11:32→21:03)
--- NOTE | 2019-01-29 14:06 | P.PN ---
Subjective Progress Note Date: 01/29/19 This is a 63-year-old gentleman with history of hyperlipidemia, hypertension, morbid obesity, chronic diastolic heart failure, follows with Dr. Goodwin in the office. We had seen the patient in consultation back in February 2018. Patient is very unkempt, very unclean, does not have a bath or shower on a regular basis. He presented to the hospital on this admission with symptoms of progressively worsening shortness of breath which she states has been going on for at least a month but over the past few days extremely worse. He also has noticed significant swelling in both of his lower extremities, his left lower extremity is not only swollen but was extremely red and tender. Chest x-ray showed moderate cardiomegaly, interstitial prominence suggesting pulmonary vascular congestion. EKG on presentation here showed a sinus tachycardia with left bundle pattern, similar to EKGs when the patient was in the hospital approximately a year ago. Blood pressure 106/60, heart rate 103, 95% on room air. White blood cell count 18.8, hemoglobin 15.7, platelet count 142. INR 4.4. Sodium 135, potassium 5.5, BUN 81, creatinine 3.3, plasma lactic acid 3.3, magnesium 2.0, total bilirubin 5.8, AST 2320, ALT 1914, alk phos 127, troponin 0.3-4. BNP level 47,500. TSH level X.8 free T4 1.8 and free T3 2 .0. Hepatitis a and B-. 01/22/2019 Patient was seen and examined this morning, he does state that he is feeling mildly better than yesterday. He has been putting out urine, although his weight according to the documentation. Blood pressure 104/60 with a heart rate in the 70s to 80s, 93% on a Ventimask. Venous duplex study was performed which was negative for an acute DVT in the left lower extremity. Ultrasound of the gallbladder was also performed which was a very limited exam because of the patient's body habitus, there is borderline hepatomegaly and somewhat hypoactive. The liver correlate to exclude hepatitis. Questionable visualization of a nondistended gallbladder. Currently on Lasix 40 mg IV every 8 hourly. White blood cell count 20.7, ENA globin 14.3, platelet count 120. Pro time 40.2 with an INR 5.0. Sodium 136, potassium 5.3, BUN 92 and creatinine 3.08. 01/23/2019 Patient was seen and examined this morning, denies any shortness of breath but appears to be quite short of breath. Blood pressure 104/70 with a heart rate in the 70s, 96% on 4 L of oxygen. Labs from today look considerably worse than yesterday overall. His pro time today is 95.3 with an INR of 9.7. Sodium 132, potassium 5.3, BUN 108, creatinine 3.7. Magnesium 2.5, total bilirubin 3.7, AST 1734, ALT 2214, alk phos 133. Albumin 3.1 today, total protein 6.0. Patient has been on IV Lasix 40 mg 3 times a day, patient was seen today by nephrology who recommended that the dose of Lasix for this evening be held. 01/24/2019 Patient seen and examined this morning, still appears to be somewhat short of breath, continues to have significant bilateral peripheral edema. His pro time today is 36.5 with an INR 3.8. Sodium 132, potassium 5.5, BUN 132, creatinine 4.2. Magnesium 2.7, total bilirubin 3.9, AST 1659, ALT 2475, alk phos 144. The patient this morning has been initiated on IV dobutamine, he will also be started today on a Lasix drip. 01/29/2019 Patient seen and examined this morning, sitting up in the chair bedside. Complaining of significant itching through the night last night, has full-body rash. Continues to be on IV push Lasix and is diuresing well overall. Pressure 125/60 with a heart rate in the 70s. Sodium 134, potassium 3.5, BUN 98 and creatinine 1.9. Objective - Vital Signs Vital signs: Vital Signs Temp 97.5 F L 01/29/19 12:00 Pulse 79 01/29/19 12:00 Resp 18 01/29/19 12:00 BP 125/69 01/29/19 12:00 Pulse Ox 97 01/29/19 12:00 Intake & Output 01/28/19 01/29/19 01/29/19 18:59 06:59 18:59 Intake Total 470 622 Output Total 250 300 Balance 220 -300 622 Weight 150.1 kg 151.2 kg Intake: IV 110 .9 5ml/hour 10 DAPTOmycin 600 mg In 100 Sodium Chloride 0.9% 50 ml @ 100 mls/hr IVPB Q24H [facility] Rx#:[id number] Oral 360 622 Output: Urine 250 300 Other: Voiding Method Indwelling Catheter Urinal # Voids 350 2 - Exam GENERAL: This is a 62-year-old male in no apparent distress at the time of my examination. Morbid obesity. HEENT: Head is atraumatic, normocephalic. Pupils are equal, round. Sclerae anicteric. Conjunctivae are clear. Mucous membranes of the mouth are moist. Neck is supple. There is jugular venous distention although difficult to assess secondary to body habitus. No carotid bruit is heard. LUNGS: Bibasilar rales. No wheezes or rhonchi. No chest wall tenderness is noted on palpation or with deep breathing. HEART: Regular rate and rhythm without murmurs, rubs or gallops. S1 and S2 heard. ABDOMEN: Soft, obese, elderly distended, nontender. Bowel sounds are heard. Hepatomegaly. EXTREMITIES: Significant 2 to 3 + plus pitting edema , with significant redness noted to the left lower extremity suggestive of cellulitis full-body rash noted VASCULAR: Radial and dorsalis pedis pulses palpated, no evidence of clubbing. NEUROLOGIC: Patient is awake, alert and oriented x3. - Labs CBC & Chem 7: 01/28/19 04:42 01/29/19 10:16 Labs: Abnormal Lab Results - Last 24 Hours (Table) 01/29/19 01/29/19 Range/Units 06:38 10:16 PT 19.9 H (9.0-12.0) sec INR 2.0 H (<1.2) Sodium 134 L (137-145) mmol/L Chloride 95 L (98-107) mmol/L BUN 98 H (9-20) mg/dL Creatinine 1.95 H (0.66-1.25) mg/dL Glucose 181 H (74-99) mg/dL Assessment and Plan Plan: Assessment and plan #1 systolic congestive heart failure acute on chronic, documented ejection f raction in February 2000 1820-25% #2 Cellulitis of the left lower extremity #3 Leukocytosis, elevated plasma lactic acid, secondary to sepsis #4 Hypertension #5 Dyslipidemia #6 elevated troponins not indicative of an acute coronary event may be related to sepsis #7 Acute on chronic renal failure #8 Morbid obesity, BMI 51 #9 paroxysmal atrial fibrillation on Coumadin for anticoagulation, INR is diana pratherapeutic, likely secondary to liver congestion congestive cardiac failure. #10 abnormal liver enzymes likely secondary to congestion #11 hypothyroidism, TSH 10.8 #12 elevated liver enzymes, hepatitis A and B-. #13hypokalemia Plan Cardiology's perspective, we'll recommend to continue this patient on his current medications. We will continue to follow. DNP note has been reviewed, I agree with a documented findings and plan of care. Patient was seen and examined.
--- NOTE | 2019-01-29 16:53 | PN ---
PROGRESS NOTE DATE OF SERVICE: 01/29/2019 REASON FOR FOLLOWUP: 1. Left lower extremity cellulitis. 2. Drug rash. INTERVAL HISTORY: The patient is currently afebrile. The patient is breathing comfortably. The patient's main symptom remains significant itching and rash. No chest pain. No nausea or vomiting. No abdominal pain. Overall pain and swelling to the left leg have improved. PHYSICAL EXAMINATION: Blood pressure is 125/69 with a pulse of 79, temperature 97.5. He is 97% on room air. General description is a middle-aged male up in the bed in no distress. RESPIRATORY SYSTEM: Unlabored breathing with decreased breath sounds at the base. No wheeze. HEART: S1, S2. Regular rate and rhythm. ABDOMEN: Soft. No tenderness. LABS: Creatinine is 1.95. INR 2.0. No CBC was done today. DIAGNOSTIC IMPRESSION AND PLAN: 1. Patient with extensive left lower extremity rash, cellulitis. Cultures were positive for MSSA, strep and anaerobes. The patient did develop a rash to Unasyn, which has been discontinued. Currently on daptomycin and Flagyl. 2. Patient with extensive rash. May benefit from a short course of and Benadryl. Monitor clinical course closely. MMODL / IJN: [id number] /
[2019-01-29] MEDS: WARFARIN 2.5 MG TAB PO SCH (18:29)
--- NOTE | 2019-01-29 19:02 | PN ---
PROGRESS NOTE Patient is seen for followup for acute kidney injury. Renal function had improved with creatinine down to 1.6 from 3.3 at peak. Today it is up to 1.9. Patient is maintained on Lasix 40 mg IV daily, which has been decreased from a Lasix drip initially. Patient continues to have good urine output, with 24-hour urine output of about 2.6 L. He is complaining of itching in his back from the rash. Antibiotics have been changed. PHYSICAL EXAMINATION: Blood pressure this morning 119/72, heart rate of 79 per minute. Patient is afebrile. EXAMINATION OF THE HEART: S1 and S2. EXAMINATION OF LUNGS: Bilateral breath sounds are heard. ABDOMEN: Soft, non-tender, obese. Examination of lower extremities shows erythema, left leg. Left leg is currently wrapped. There is rash noted in the upper and lower extremities as well as the back. SKIP TRACER exam grossly intact. LABS: Sodium 134, potassium 3.5, BUN 98, creatinine 1.95. ASSESSMENT: 1. Acute kidney injury, cardiorenal, with renal function better than on admission. However, today the creatinine is higher than yesterday. The diuretics have been decreased. I will continue with the current dose for now. Urine output is well maintained. 2. Maculopapular rash, most likely allergic reaction to antibiotics, which have been changed. 3. Cellulitis, left lower extremity. 4. Hypokalemia secondary to diuretics. Being replaced. PLAN: Continue current dose of Lasix. Repeat labs in a.m. MMODL / IJN: [id number] /
--- NOTE | 2019-01-29 22:30 | P.PN ---
Progress Note - Text Progress Note Date: 01/29/19 Interval history: Patient presents with symptoms of increasing shortness of breath. Also some s welling of the left leg with discoloration. Patient admitted with the diagnosis ofAcute on chronic congestive heart failure exacerbation with EF of 2025%, persistent atrial flutter fibrillation, acute ischemic hepatitis from hypotension, acute left lower extremity cellulitis. On 01/24/2019 patient was moved to the ICU for being hypotensive. Started on IV Lasix drip and IV dobutamine. Dobutamine drip was discontinued on January 27. Patient did develop a rash. - Unasyn was discontinued. Started on daptomycin. Today-moved to the medical floor. Rash is slightly better. Diffuse morbillifor m. Patient was switched over to IV push Lasix. Yesterday overall feeling better. Took a shower today. Good urine output. Sims catheter was discontinued yesterday. Review of systems: Was done for constitutional, cardiovascular, GI, pulmonary. relevant finding as above Active Medications Diltiazem HCl (Cardizem Oral) 30 mg PO TID [facility] Last Admin: 01/29/19 22:23 Dose: 30 mg Documented by: Diphenhydramine HCl (Benadryl) 25 mg PO BID [facility] Last Admin: 01/29/19 21:03 Dose: 25 mg Documented by: Furosemide (Lasix) 40 mg IV DAILY [facility] Last Admin: 01/29/19 09:07 Dose: 40 mg Documented by: Daptomycin 600 mg/ Sodium (Chloride) 50 mls @ 100 mls/hr IVPB Q24H [facility]; Protocol Last Admin: 01/29/19 15:01 Dose: 100 mls/hr Documented by: Levothyroxine Sodium (Synthroid) 25 mcg PO SUMOWEFRSA [facility] Last Admin: 01/29/19 06:41 Dose: 25 mcg Documented by: Metoprolol Tartrate (Lopressor) 50 mg PO BID [facility] Last Admin: 01/29/19 21:03 Dose: 50 mg Documented by: Metronidazole (Flagyl) 500 mg PO TID [facility] Last Admin: 01/29/19 22:23 Dose: 500 mg Documented by: Midodrine (Proamatine) 5 mg PO AC-TID [facility] Last Admin: 01/29/19 18:29 Dose: 5 mg Documented by: Nitroglycerin (Nitrostat) 0.4 mg SUBLINGUAL Q5M PRN PRN Reason: Chest Pain Sodium Chloride (Saline Flush) 10 ml IV BID [facility] Last Admin: 01/29/19 21:41 Dose: Not Given Documented by: Warfarin Sodium (Coumadin) 2.5 mg PO DAILY@1800 [facility] Last Admin: 01/29/19 18:29 Dose: 2.5 mg Documented by: Physical examination: VITAL SIGNS: Recent 0.5, 77, 18, 126/71, 96% on 2 L GENERAL: Sitting up in a recliner chair. Walking much better EYES: Pupils equal. Conjunctiva normal. HEENT: External appearance of nose and ears normal, oral cavity grossly normal. NECK: JVD unable to assess masses not palpable. HEART: First and second heart sounds are normal; some edema. LUNGS:[ Respiratory rate increased, decreased breath sounds. ABDOMEN: Soft, distended, nontender, liver spleen not palpable, no masses palpable. Sims catheter in place PSYCH: Alert and oriented x3; mood and affect more awake DERMATOLOGICAL: Dressing over the left lower extremity, diffuse morbilliform rash in the body INVESTIGATIONS, reviewed in the clinical context: Potassium 3.5. Bun 98 creatinine 1.95 INR 2 Previous testing: Troponin I 0.20 to Abdominal ultrasound-unremarkable Venous Doppler-negative for DVT in the left lower extremity 2-D echo-EF less than 20%, severe concentric left medical hypertrophy 2-D echo-borderline hepatomegaly, poor study EKG tracing-PVC with left bundle-branch block, atrial flutter fibrillation White count 20.7 hemoglobin 14.3 platelets 120 underwent 0.7 potassium 5.3 bun 108 creatinine 3.77 AST 1734 ALT 2214 albumin 3.1 Left leg culture-Staphylococcus aureus, beta hemolytic strep group G Assessment: -Acute on chronic congestive heart failure exacerbation from diastolic and systolic dysfunction EF 20-25%, decompensated, status post dobutamine and Lasix drip. Currently on Lasix IV push. -Persistent atrial fibrillation/flutter -Left bundle-branch block -Acute ischemic hepatitis from hypotension, improving -Morbid obesity BMI 52.3 -Hypoalbuminemia has an acute phase reactant -Acute left lower extremity cellulitis, with MSSA and beta-hemolytic strep group G -Hyperlipidemia -Essential hypertension -Chronic kidney disease stage III from nephrosclerosis at her baseline -Acute kidney injury, likely prerenal from cardiorenal syndrome, slowly improving -Bilateral lower extremity venous insufficiency and chronic venous stasis -Troponin leak from chronic kidney disease, no evidence of acute coronary syndrome -Acute Coumadin toxicity, with no evidence of bleeding in the setting of acute hepatitis, INR down to 1.7 Plan: Functional started to go up again. May need to hold off IV Lasix 24 hours. Overall doing better. Maybe the renal function has plateaued off. Follow with nephrology and ID.
[2019-01-30 06:36] LABS: INR 1.8 (<1.2); Prothrombin Time 17.4 sec (9.0-12.0)
[2019-01-30] MEDS: MIDODRINE 5 MG TAB PO SCH ×3 (06:56→16:32)
[2019-01-30] MEDS: METOPROLOL TARTRATE 50 MG TAB PO SCH ×2 (09:44→21:09)
[2019-01-30] MEDS: DILTIAZEM ORAL 30 MG TAB PO SCH (09:45)
[2019-01-30] MEDS: diphenhydrAMINE 25 MG CAP PO SCH ×2 (09:45→21:09)
[2019-01-30] MEDS: FUROSEMIDE 10 MG/ML 4 ML VIAL IV SCH (09:48)
[2019-01-30] MEDS: metroNIDAZOLE 500 MG TAB PO SCH ×3 (10:38→21:09)
--- NOTE | 2019-01-30 12:06 | P.PN ---
Subjective Patient is seen in follow-up for acute kidney injury on chronic kidney disease. Patient has chronic kidney disease stage III with baseline creatinine in the range of 1.2-1.4. Creatinine 1.95 as of yesterday. Currently maintained on Lasix 40 mg IV once daily. No vomiting. Oral intake is good. Vital signs are stable. General: The patient appeared well nourished and normally developed. HEENT: Head exam is unremarkable. Neck is without jugular venous distension. LUNGS: Breath sounds decreased. HEART: Rate and Rhythm are regular. First and second heart sounds normal. No murmurs, rubs or gallops. ABDOMEN: Abdominal exam reveals normal bowel sounds. Non-tender and non- distended. No evidence of peritonitis. EXTREMITITES: 1+ edema. Wrapped. Objective - Vital Signs Vital signs: Vital Signs Temp 97.6 F 01/30/19 11:54 Pulse 77 01/30/19 11:54 Resp 20 01/30/19 11:54 BP 100/56 01/30/19 11:54 Pulse Ox 94 L 01/30/19 11:54 Intake & Output 01/29/19 01/30/19 01/30/19 18:59 06:59 18:59 Intake Total 622 140 Output Total 300 370 Balance 322 -230 Weight 153.7 kg Intake: Oral 622 140 Output: Urine 300 370 Other: Voiding Method Urinal Urinal Urinal # Voids 1 1 - Labs CBC & Chem 7: 01/28/19 04:42 01/29/19 10:16 Labs: Abnormal Lab Results - Last 24 Hours (Table) 01/30/19 Range/Units 05:52 PT 17.4 H (9.0-12.0) sec INR 1.8 H (<1.2) Assessment and Plan Plan: Assessment: 1. Acute kidney injury mostly prerenal secondary to cardiorenal syndrome. Creatinine 1.95 as of yesterday. No labs today. 2. Chronic kidney disease stage III. Baseline creatinine in the range of 1.2- 1.4. Etiology is cardiorenal syndrome. 3. Dyspnea secondary to volume overload. Better. 4. Acute on chronic systolic CHF with ejection fraction of <20%. 5. Metabolic acidosis secondary to acute kidney injury. Resolved. 6. Lower extremity cellulitis maintained on antibiotics. Infectious disease following. 7. Paroxysmal A. fib. Now rate controlled. Maintained on Cardizem and Coumadin. 8. Urinary retention. Sims catheter is removed. He is voiding on his own. 9. Macopapular rash. ?unasyn induced. ID following. Plan: Maintain Lasix 40 mg IV once daily. Check labs today. Avoid nephrotoxins.
[2019-01-30 12:11] LABS: Calcium 9.3 mg/dL (8.4-10.2); Magnesium 2.2 mg/dL (1.6-2.3); Potassium 3.7 mmol/L (3.5-5.1)
--- NOTE | 2019-01-30 13:40 | P.PN ---
Subjective Progress Note Date: 01/30/19 This is a 63-year-old gentleman with history of hyperlipidemia, hypertension, morbid obesity, chronic diastolic heart failure, follows with Dr. Goodwin in the office. We had seen the patient in consultation back in February 2018. Patient is very unkempt, very unclean, does not have a bath or shower on a regular basis. He presented to the hospital on this admission with symptoms of progressively worsening shortness of breath which she states has been going on for at least a month but over the past few days extremely worse. He also has noticed significant swelling in both of his lower extremities, his left lower extremity is not only swollen but was extremely red and tender. Chest x-ray showed moderate cardiomegaly, interstitial prominence suggesting pulmonary vascular congestion. EKG on presentation here showed a sinus tachycardia with left bundle pattern, similar to EKGs when the patient was in the hospital approximately a year ago. Blood pressure 106/60, heart rate 103, 95% on room air. White blood cell count 18.8, hemoglobin 15.7, platelet count 142. INR 4.4. Sodium 135, potassium 5.5, BUN 81, creatinine 3.3, plasma lactic acid 3.3, magnesium 2.0, total bilirubin 5.8, AST 2320, ALT 1914, alk phos 127, troponin 0.3-4. BNP level 47,500. TSH level X.8 free T4 1.8 and free T3 2 .0. Hepatitis a and B-. 01/22/2019 Patient was seen and examined this morning, he does state that he is feeling mildly better than yesterday. He has been putting out urine, although his weight according to the documentation. Blood pressure 104/60 with a heart rate in the 70s to 80s, 93% on a Ventimask. Venous duplex study was performed which was negative for an acute DVT in the left lower extremity. Ultrasound of the gallbladder was also performed which was a very limited exam because of the patient's body habitus, there is borderline hepatomegaly and somewhat hypoactive. The liver correlate to exclude hepatitis. Questionable visualization of a nondistended gallbladder. Currently on Lasix 40 mg IV every 8 hourly. White blood cell count 20.7, ENA globin 14.3, platelet count 120. Pro time 40.2 with an INR 5.0. Sodium 136, potassium 5.3, BUN 92 and creatinine 3.08. 01/23/2019 Patient was seen and examined this morning, denies any shortness of breath but appears to be quite short of breath. Blood pressure 104/70 with a heart rate in the 70s, 96% on 4 L of oxygen. Labs from today look considerably worse than yesterday overall. His pro time today is 95.3 with an INR of 9.7. Sodium 132, potassium 5.3, BUN 108, creatinine 3.7. Magnesium 2.5, total bilirubin 3.7, AST 1734, ALT 2214, alk phos 133. Albumin 3.1 today, total protein 6.0. Patient has been on IV Lasix 40 mg 3 times a day, patient was seen today by nephrology who recommended that the dose of Lasix for this evening be held. 01/24/2019 Patient seen and examined this morning, still appears to be somewhat short of breath, continues to have significant bilateral peripheral edema. His pro time today is 36.5 with an INR 3.8. Sodium 132, potassium 5.5, BUN 132, creatinine 4.2. Magnesium 2.7, total bilirubin 3.9, AST 1659, ALT 2475, alk phos 144. The patient this morning has been initiated on IV dobutamine, he will also be started today on a Lasix drip. 01/29/2019 Patient seen and examined this morning, sitting up in the chair bedside. Complaining of significant itching through the night last night, has full-body rash. Continues to be on IV push Lasix and is diuresing well overall. Pressure 125/60 with a heart rate in the 70s. Sodium 134, potassium 3.5, BUN 98 and creatinine 1.9. 01/30/2019 Patient was seen and examined this morning, overall doing better. Creatinine is up to 1.9 today was 1.6 yesterday. He does state that the itching from his rash is improving however he still is quite itchy. Breathing is stable. Blood pressure 100/60, heart rate 70, temperature 97.6. Pro time today is 17.4 with an INR 1.8. Sodium 136, potassium 3.7,BUn 102 creat 1.7. Magnesium came back at 2.2. Objective - Vital Signs Vital signs: Vital Signs Temp 97.6 F 01/30/19 11:54 Pulse 77 01/30/19 11:54 Resp 20 01/30/19 11:54 BP 100/56 01/30/19 11:54 Pulse Ox 94 L 01/30/19 11:54 Intake & Output 01/29/19 01/30/19 01/30/19 18:59 06:59 18:59 Intake Total 622 140 Output Total 300 370 Balance 322 -230 Weight 153.7 kg Intake: Oral 622 140 Output: Urine 300 370 Other: Voiding Method Urinal Urinal Urinal # Voids 1 1 - Exam GENERAL: This is a 62-year-old male in no apparent distress at the time of my examination. Morbid obesity. HEENT: Head is atraumatic, normocephalic. Pupils are equal, round. Sclerae anicteric. Conjunctivae are clear. Mucous membranes of the mouth are moist. Neck is supple. There is jugular venous distention although difficult to assess secondary to body habitus. No carotid bruit is heard. LUNGS: Bibasilar rales. No wheezes or rhonchi. No chest wall tenderness is noted on palpation or with deep breathing. HEART: Regular rate and rhythm without murmurs, rubs or gallops. S1 and S2 heard. ABDOMEN: Soft, obese, elderly distended, nontender. Bowel sounds are heard. Hepatomegaly. EXTREMITIES: Significant 2 + plus pitting edema , with significant redness noted to the left lower extremity suggestive of cellulitis, full-body rash noted VASCULAR: Radial and dorsalis pedis pulses palpated, no evidence of clubbing. NEUROLOGIC: Patient is awake, alert and oriented x3. - Labs CBC & Chem 7: 01/28/19 04:42 01/30/19 05:52 Labs: Abnormal Lab Results - Last 24 Hours (Table) 01/30/19 01/30/19 Range/Units 05:52 05:52 PT 17.4 H (9.0-12.0) sec INR 1.8 H (<1.2) Sodium 136 L (137-145) mmol/L BUN 102 H* (9-20) mg/dL Creatinine 1.78 H (0.66-1.25) mg/dL Glucose 104 H (74-99) mg/dL Assessment and Plan Plan: Assessment and plan #1 systolic congestive heart failure acute on chronic, documented ejection frac tion in February 2000 1820-25% #2 Cellulitis of the left lower extremity #3 Leukocytosis, elevated plasma lactic acid, secondary to sepsis #4 Hypertension #5 Dyslipidemia #6 elevated troponins not indicative of an acute coronary event may be related to sepsis #7 Acute on chronic renal failure #8 Morbid obesity, BMI 51 #9 paroxysmal atrial fibrillation on Coumadin for anticoagulation, INR is 1.8 t yvonne. #10 abnormal liver enzymes likely secondary to congestion #11 hypothyroidism, TSH 10.8 #12 elevated liver enzymes, hepatitis A and B-. #13hypokalemia Plan Cardiology's perspective, we'll recommend to continue this patient on his current medications. Check lytes BUN and creatinine in the morning. DNP note has been reviewed, I agree with a documented findings and plan of care. Patient was seen and examined.
--- NOTE | 2019-01-30 14:22 | P.PN ---
Subjective Progress Note Date: 01/30/19 Principal diagnosis: Acute on chronic systolic congestive heart failure, cellulitis of the left lower extremity This 63-year-old male patient was being seen in follow-up in intensive care unit regarding his congestion heart failure and fluid overload. Noted the patient has chronic systolic heart failure with an ejection fraction of 20%. The patient has chronic lower extremity edema and fluid overload in addition to ones lower extremity. He is also battling a cellulitis of the left lower extremity. He does have chronic sores and wounds especially the ones in the left lower extremity which are currently dressed appropriately and the patient is also covered with antibiotics. In summary, the patient is improving. He is currently on 6 L of oxygen by nasal cannula. He is receivingLasix at 5 mg an hour and is also producing adequate amount of urine output and he has been a negative fluid balance. The patient's chest x-ray from yesterday still showing pulmonary vessel congestion/edema, although, there has been some improvement in his oxygenation and his breathing better and is less short of breath. As for the lower extremity edema, it is improving. He continues to have some erythema and warmth the medial aspect of the left thigh secondary to his underlying cellulitis. Cultures from the wound have shown group G strep and staph. The patient also has been antibiotics including a combination of cefazolin and clindamycin. He is on long-term anticoagulation and he is on warfarin and his INR today is at 1.7 which is lower compared to yesterday. He continues to improve in terms of his renal function. Creatinine is down to 1.6. Electrolytes all within normal limits. LFTs are also improving with the AST is down to 257 and ALT is down to 632. No nausea. No vomiting. No emesis. No altered mentation. No other complaints otherwise for now. On today's evaluation of 01/28/2019, the patient is awake and alert. He has no specific complaints. I noted that cellulitis and left lower extremity is progressively getting worse. After that cellulitis above the prather that were placed earlier and is extending to his upper thigh and the lower abdominal area. His white cell count is also elevated. Based on that, the cefazolin and clindamycin were discontinued and the patient was placed on IV Unasyn 3 g every 6 hours. He remains on Lasix drip at 5 mg an hour. The net fluid balance over the past 24 hours of been -850 mL. Lower extremity edema is improved. He remains in atrial fibrillation. PT/INR is subtherapeutic. Heart rate is slightly above 100. No nausea. No vomiting. He was on 6 L of oxygen by nasal cannula and FiO2 was not found to 4 L and we are in the The process of weaning down the FiO2 further. His chest x-ray shows cardiomegaly and mild pulmonary vessel congestion. As for rate control, the patient is on and the patient's creatinine is stable for now at 1.67. LFTs were slowly improving. The patient is seen today in 01/30/2019 in follow-up on the regular medical floor. He is awake and alert in no acute distress. He is sitting up in a chair at the bedside. The redness and warmth of the left lower extremity has extended up into his abdomen and on his back. He is currently on daptomycin now. The rash is quite itchy. He is on oral Benadryl. Ultracet left lower extremity revealed anaerobic gram-positive cocci and anaerobic gram-negative bacilli along with Staphylococcus aureus and beta-hemolytic strep group G. INR 1.8. Sodium 136. Potassium 3.7. BUN 102. Creatinine 1.78. He remains on IV Lasix at 40 mg daily. Anticoagulated with warfarin. Objective - Vital Signs Vital signs: Vital Signs Temp 97.6 F 01/30/19 11:54 Pulse 77 01/30/19 11:54 Resp 20 01/30/19 11:54 BP 100/56 01/30/19 11:54 Pulse Ox 94 L 01/30/19 11:54 Intake & Output 01/29/19 01/30/19 01/30/19 18:59 06:59 18:59 Intake Total 622 140 Output Total 300 370 Balance 322 -230 Weight 153.7 kg Intake: Oral 622 140 Output: Urine 300 370 Other: Voiding Method Urinal Urinal Urinal # Voids 1 1 - Exam Gen. appearance is calm and comfortable pleasant 63-year-old gentleman, morbidly obese with a BMI of 50.4 on 2 L nasal cannula. Head exam was generally normal. There was no scleral icterus or corneal arcus. Mucous membranes were moist. Neck was supple and without jugular venous distension, thyromegaly, or carotid bruits. Carotids were easily palpable bilaterally. There was no adenopathy. The patient has a Mallampati class IV. There is no goiter or neck masses. Lungs sounds are diminished bilaterally especially in lung bases along with some bibasilar crackles. Heart sounds are regular rate and rhythm. There is a faint systolic ejection murmur that can be heard along the left sternal border. No rubs. No gallop rhythm. Abdomen is obese soft nontender. Organs cannot be accurately palpated. There is no direct tenderness or rebound tensile guarding at this point in time. Bowel sounds are present. Extremities revealed +1-2 pitting edema. Lower extremities are wrapped. The erythema is more on the left especially in the area between the knee and the mediastinum and anterior thigh. There are some older ones and sloughed skin in the medial aspect of the foot along the area of the malleolus extending posteriorly in the area needs to be debrided. The pulses in lower extremities are diminished. There are palpable. No cyanosis. There is poor toenail hygiene. Neurologically, the patient is awake and alert and there is no focal neurolo gical deficit. Psychiatrically, there is no significant anxiety or depression at this point in time Skin the patient has chronic cellulitis of the left lower extremity along with erythema and warmth especially in the medial aspect of the left thigh in addition to chronic wounds in lower extremities more so on the left lower extremity at the level of the left malleolus. The overlying skin is sloughed, the underlying skin his forming units healthy. The areas of skin needs to be debrided. - Labs CBC & Chem 7: 01/28/19 04:42 01/30/19 05:52 Labs: Abnormal Lab Results - Last 24 Hours (Table) 01/30/19 01/30/19 Range/Units 05:52 05:52 PT 17.4 H (9.0-12.0) sec INR 1.8 H (<1.2) Sodium 136 L (137-145) mmol/L BUN 102 H* (9-20) mg/dL Creatinine 1.78 H (0.66-1.25) mg/dL Glucose 104 H (74-99) mg/dL Assessment and Plan Assessment: 1 acute on chronic systolic heart failure with an ejection fraction of 20-25% with obvious signs of fluid overload 2 acute on chronic hypoxic respiratory failure currently on 4liters by nasal cannula 3 acute kidney injury improving and the creatinine is down to 1.78 4 chronic lower extremity edema 5 cellulitis left lower extremity extending into the left thigh abdomen and back with MSSA and strep group G currently on accommodation of antibiotics, on daptomycin. 6 leukocytosis secondary to above, with a rise in the white cell count up to 19,400 and the patient is developing worsening cellulitis of the left lower extremity extending to his upper thigh and lower abdominal area. 7 hypertension 8 hyperlipidemia 9 obesity with BMI of 50.4 10 hypothyroidism, improving 11 paroxysmal atrial fibrillation the patient has been on long-term articulation with warfarin with a subtherapeutic PT/INR on today's evaluation 12 left bundle branch block pattern along with episodic A. fib/flutter 13 abnormal LFTs, improving Plan The patient was seen and evaluated by Dr. Heaton. He is stable from the pulmonary standpoint. On Lasix 40 mg IV daily now. 2 L of nasal cannula. The redness and warmth of the left lower extremity has extended up into his thigh abdomen and back. He is currently on daptomycin. Oral Benadryl. We will + mitral 60 mg IV every 6 hours. ID is on the case. We'll continue to follow. I, the cosigning physician, performed a history & physical examination of the patient. Lungs sounds diminished more so on the left lung base with basilar crackles. Maintaining good O2 saturations in the 90s on 2 L/m per nasal cannula. I discussed the assessment and plan of care with my nurse practitioner, Alina Patel. I attest to the above note as dictated by her.
[2019-01-30] MEDS: WARFARIN 2.5 MG TAB PO SCH (16:32)
[2019-01-30] MEDS: methylPREDNISolone SOD SUCCI 125 MG/2 ML VIAL IV SCH ×3 (16:32→23:55)
--- NOTE | 2019-01-30 19:32 | PN ---
PROGRESS NOTE DATE OF SERVICE: 01/30/2019 REASON FOR FOLLOWUP: Left leg wound with cellulitis. INTERVAL HISTORY: The patient is currently afebrile. The patient is breathing comfortably. The patient denies having any chest pain or cough. No nausea. No vomiting. No abdominal pain. left leg patient's overall itching and rash have decreased in intensity. PHYSICAL EXAMINATION: Blood pressure was 104/64 with a pulse of 77, temperature 97.6. He is 94% on 2 L nasal cannula. General description is a middle-aged male up in the bed in no distress. RESPIRATORY SYSTEM: Unlabored breathing with decreased breath sounds at the base. No wheeze. HEART: S1, S2. Regular rate and rhythm. ABDOMEN: Soft. No tenderness. Left leg swelling and redness have slightly decreased. Skin rash decreased in intensity. LABS: Creatinine is 1.78. No CBC was done today. DIAGNOSTIC IMPRESSION AND PLAN: 1. Patient with extensive left lower extremity cellulitis. Culture positive for strep, MSSA anaerobes. The patient did have a significant rash to the Unasyn and is currently covered with daptomycin; to continue until February 07 to finish his 2- week course of therapy. 2. Drug rash has decreased in intensity. To document UNASYN ALLERGY. Benadryl as needed. MMODL / IJN: [id number] /
--- NOTE | 2019-01-30 22:44 | P.PN ---
Progress Note - Text Progress Note Date: 01/30/19 Interval history: Patient presents with symptoms of increasing shortness of breath. Also some s welling of the left leg with discoloration. Patient admitted with the diagnosis ofAcute on chronic congestive heart failure exacerbation with EF of 2025%, persistent atrial flutter fibrillation, acute ischemic hepatitis from hypotension, acute left lower extremity cellulitis. On 01/24/2019 patient was moved to the ICU for being hypotensive. Started on IV Lasix drip and IV dobutamine. Dobutamine drip was discontinued on January 27. Patient did develop a rash. - Unasyn was discontinued. Started on daptomycin. Today-rash is slowly improving. Some itching is present. Remains on daptomycin . He did much better.. Eating much better. Review of systems: Was done for constitutional, cardiovascular, GI, pulmonary. Dermatological relevant finding as above Active Medications Diphenhydramine HCl (Benadryl) 25 mg PO BID [facility] Last Admin: 01/30/19 21:09 Dose: 25 mg Documented by: Furosemide (Lasix) 40 mg IV DAILY [facility] Last Admin: 01/30/19 09:48 Dose: 40 mg Documented by: Daptomycin 600 mg/ Sodium (Chloride) 50 mls @ 100 mls/hr IVPB Q24H [facility]; Protocol Last Admin: 01/30/19 12:12 Dose: 100 mls/hr Documented by: Levothyroxine Sodium (Synthroid) 25 mcg PO SUMOWEFRSA [facility] Last Admin: 01/29/19 06:41 Dose: 25 mcg Documented by: Methylprednisolone Sodium Succinate (Solu-Medrol) 60 mg IV Q6HR [facility] Last Admin: 01/30/19 16:33 Dose: Not Given Documented by: Metoprolol Tartrate (Lopressor) 50 mg PO BID [facility] Last Admin: 01/30/19 21:09 Dose: 50 mg Documented by: Metronidazole (Flagyl) 500 mg PO TID [facility] Last Admin: 01/30/19 21:09 Dose: 500 mg Documented by: Midodrine (Proamatine) 5 mg PO AC-TID [facility] Last Admin: 01/30/19 16:32 Dose: 5 mg Documented by: Nitroglycerin (Nitrostat) 0.4 mg SUBLINGUAL Q5M PRN PRN Reason: Chest Pain Sodium Chloride (Saline Flush) 10 ml IV BID [facility] Last Admin: 01/30/19 21:09 Dose: 10 ml Documented by: Warfarin Sodium (Coumadin) 2.5 mg PO DAILY@1800 [facility] Last Admin: 01/30/19 16:32 Dose: 2.5 mg Documented by: Physical examination: VITAL SIGNS: 97.6, 77, 20, 100/56, 94% on 2 L GENERAL: Sitting up in a recliner chair. Awake EYES: Pupils equal. Conjunctiva normal. HEENT: External appearance of nose and ears normal, oral cavity grossly normal. NECK: JVD unable to assess masses not palpable. HEART: First and second heart sounds are normal; some edema. LUNGS:[ Respiratory rate increased, decreased breath sounds. ABDOMEN: Soft, distended, nontender, liver spleen not palpable, no masses palpable. Sims catheter in place PSYCH: Alert and oriented x3; mood and affect more awake DERMATOLOGICAL: Dressing over the left lower extremity, diffuse morbilliform rash in the body-slowly improving INVESTIGATIONS, reviewed in the clinical context: INR 1.8 potassium 3.7 bun 107 creatinine 1.78 Previous testing: Troponin I 0.20 to Abdominal ultrasound-unremarkable Venous Doppler-negative for DVT in the left lower extremity 2-D echo-EF less than 20%, severe concentric left medical hypertrophy 2-D echo-borderline hepatomegaly, poor study EKG tracing-PVC with left bundle-branch block, atrial flutter fibrillation White count 20.7 hemoglobin 14.3 platelets 120 underwent 0.7 potassium 5.3 bun 108 creatinine 3.77 AST 1734 ALT 2214 albumin 3.1 Left leg culture-Staphylococcus aureus, beta hemolytic strep group G Assessment: -Acute on chronic congestive heart failure exacerbation from diastolic and systolic dysfunction EF 20-25%, decompensated, status post dobutamine and Lasix drip. Currently on Lasix IV push. -Persistent atrial fibrillation/flutter -Left bundle-branch block -Acute ischemic hepatitis from hypotension, improving -Morbid obesity BMI 52.3 -Hypoalbuminemia has an acute phase reactant -Acute left lower extremity cellulitis, with MSSA and beta-hemolytic strep group G -Hyperlipidemia -Essential hypertension -Chronic kidney disease stage III from nephrosclerosis at her baseline -Acute kidney injury, likely prerenal from cardiorenal syndrome, slowly improving -Bilateral lower extremity venous insufficiency and chronic venous stasis -Troponin leak from chronic kidney disease, no evidence of acute coronary syndrome -Acute Coumadin toxicity, with no evidence of bleeding in the setting of acute hepatitis, INR down to 1.7 Plan: Overall much improved. Antibiotic to continue the 15th as per ID. Looking at patient going to the ECF tomorrow. Care was discussed with the patient.
[2019-01-31] MEDS: MIDODRINE 5 MG TAB PO SCH ×2 (06:08→12:19)
[2019-01-31] MEDS: LEVOTHYROXINE 25 MCG TAB PO SCH (06:08)
[2019-01-31] MEDS: methylPREDNISolone SOD SUCCI 125 MG/2 ML VIAL IV SCH ×2 (06:10→12:06)
[2019-01-31 06:35] LABS: Glucose,Whole Blood 134 mg/dL (75-99)
[2019-01-31 07:37] LABS: Calcium 9.2 mg/dL (8.4-10.2); Magnesium 2.2 mg/dL (1.6-2.3); Potassium 4.2 mmol/L (3.5-5.1)
[2019-01-31 08:00] VITALS: TEMP 97.4
[2019-01-31] MEDS: metroNIDAZOLE 500 MG TAB PO SCH (09:26)
[2019-01-31] MEDS: METOPROLOL TARTRATE 50 MG TAB PO SCH (09:26)
[2019-01-31] MEDS: diphenhydrAMINE 25 MG CAP PO SCH (09:27)
[2019-01-31] MEDS: FUROSEMIDE 10 MG/ML 4 ML VIAL IV SCH (09:27)
[2019-01-31 09:54] LABS: INR 1.4 (<1.2); Prothrombin Time 13.9 sec (9.0-12.0)
--- NOTE | 2019-01-31 10:18 | PN ---
PROGRESS NOTE Omid is a 63-year-old gentleman who was admitted to hospital with chronic persistent atrial fibrillation, bilateral lower extremity cellulitis, and acute exacerbation of chronic heart failure, is doing much better now it, appears more alert, awake, less short of breath. Ambulating with a walker. His renal functions have improved. Liver functions have improved. Leg edema had improved. On exam, patient is afebrile. Heart rate is 70 beats per minute. Blood pressure is 120/70, respiratory rate is 18. Chest exam reveals diminished air entry at the bases. Heart exam reveals first and second heart sounds, irregular rhythm and a systolic murmur at the left lower sternal border. Abdomen is soft. Exam of the extremities reveals bilateral 2+ pitting edema and cellulitis, but this is improved compared to where we were. LABS: Show a potassium of 4.2, BUN is 92, creatinine is 1.4, his creatinine continues to improve. Current medications include Lasix 40 mg IV, daptomycin, Synthroid, Lopressor 50 b.i.d., and Coumadin. ASSESSMENT: 1. Acute exacerbation of chronic systolic heart failure. 2. Chronic atrial fibrillation with controlled ventricular rate. 3. Chronic renal insufficiency. PLAN: Patient is feeling better. He will continue with his current medications. Hopefully home over the next 24-48 hours. MMODL / IJN: [id number] /
[2019-01-31 11:42] VITALS: BP 100/56; PULSE 71; RESP 16
[2019-01-31 12:13] LABS: Glucose,Whole Blood 159 mg/dL (75-99)
[2019-01-31] MEDS ORDERED: predniSONE 20 MG TAB PO SCH (12:45)
--- NOTE | 2019-01-31 13:52 | P.DS ---
Providers Date of admission: 01/21/19 13:52 Expected date of discharge: 01/31/19 Attending physician: Carter Marte Consults: 01/21/19 13:52 Consult Physician Urgent Consulting Provider: Nora Parkinson Consult Reason/Comments: a fib, chf, Do you want consulting provider notified?: Yes 01/21/19 16:08 Consult Physician Routine Consulting Provider: Jc Donnelly Consult Reason/Comments: Hypoxia Do you want consulting provider notified?: Yes Consult Physician Routine Consulting Provider: Royal Castillo Consult Reason/Comments: Sepsis Do you want consulting provider notified?: Yes 01/21/19 16:09 Consult Physician Routine Consulting Provider: Tegan Paz Consult Reason/Comments: Acute Renal Failure Do you want consulting provider notified?: Yes Primary care physician: Sherman Hall Hospital Course: Hospital course: Patient presents with symptoms of increasing shortness of breath. Also some swelling of the left leg with discoloration. Patient admitted with the diagnosis ofAcute on chronic congestive heart failure exacerbation with EF of 20-25%, persistent atrial flutter fibrillation, acute ischemic hepatitis from hypotension, acute left lower extremity cellulitis. On 01/24/2019 patient was moved to the ICU for being hypotensive. Started on IV Lasix drip and IV dobutamine. Dobutamine drip was discontinued on January 27. Patient did develop a rash felt to be from Unasyn, which was discontinued. Started on daptomycin. Steroids were added for rash. Overall doing much better. Tolerating a diet. Started to walk a bit better. Creatinine which had peaked at 4.23 from admission creatinine of 3.38 down to 1.49 today. Patient also had ischemic hepatitis. LFTs are coming on. Not back to normal. Therefore Lipitor was held. Discussed with Dr. Heaton today. Discussed with discharge planning. Discussed with the patient today. Going to the ECF. Eating well. Discussion and discharge planning more than 35 minutes Consultations: Dr. Alex Goodwin from cardiology Dr. Castillo from ID Dr. Miller from nephrology Dr. Dutton from GI Physical examination: VITAL SIGNS: 97.4, 71, 16, 100/56, 97% on 2 L GENERAL: Sitting up comfortable EYES: Pupils equal. Conjunctiva normal. HEENT: External appearance of nose and ears normal, oral cavity grossly normal. NECK: JVD unable to assess masses not palpable. HEART: First and second heart sounds are normal; some edema. LUNGS:[ Respiratory rate increased, decreased breath sounds. ABDOMEN: Soft, distended, nontender, liver spleen not palpable, no masses palpable. Sims catheter in place PSYCH: Alert and oriented x3; mood and affect more awake DERMATOLOGICAL: Dressing over the left lower extremity, diffuse morbilliform rash in the body- INVESTIGATIONS, reviewed in the clinical context: INR 1.4 bun 92 crit 1.49 hemoglobin 15.3 AST 257 ALT 632 on January 27 Previous testing: Troponin I 0.20 to Abdominal ultrasound-unremarkable Venous Doppler-negative for DVT in the left lower extremity 2-D echo-EF less than 20%, severe concentric left medical hypertrophy EKG tracing-PVC with left bundle-branch block, atrial flutter fibrillation White count 20.7 hemoglobin 14.3 platelets 120 underwent 0.7 potassium 5.3 bun 108 creatinine 3.77 AST 1734 ALT 2214 albumin 3.1 Left leg culture-Staphylococcus aureus, beta hemolytic strep group G Renal ultrasound-kidney is not well visualized Assessment: -Acute on chronic congestive heart failure exacerbation from diastolic and systolic dysfunction EF 20-25%, decompensated, status post dobutamine and Lasix drip. Improved -Persistent atrial fibrillation/flutter -Left bundle-branch block -Acute ischemic hepatitis from hypotension, improving -Morbid obesity BMI 52.3 -Hypoalbuminemia-an acute phase reactant -Acute left lower extremity cellulitis, with MSSA and beta-hemolytic strep group G -Hyperlipidemia -Essential hypertension -Chronic kidney disease stage III from nephrosclerosis at her baseline -Acute kidney injury, likely prerenal from cardiorenal syndrome, improving -Bilateral lower extremity venous insufficiency and chronic venous stasis -Troponin leak from chronic kidney disease, no evidence of acute coronary syndrome -Acute Coumadin toxicity, with no evidence of bleeding in the setting of acute hepatitis, Disposition: [facility] Patient Condition at Discharge: Stable Plan - Discharge Summary Discharge Rx Participant: No New Discharge Prescriptions: New DAPTOmycin [Cubicin] 600 mg IVPB Q24H #7 vial metroNIDAZOLE [Flagyl] 500 mg PO TID #21 tab predniSONE 10 mg PO DAILY #30 tab Midodrine [ProAmatine] 5 mg PO AC-TID #30 tab Allopurinol [Zyloprim] 100 mg PO DAILY #1 tablet Famotidine [Pepcid] 20 mg PO BID #1 tablet diphenhydrAMINE ELIXIR [Benadryl Elixir] 12.5 mg PO QID 5 Days ml Continue Potassium Chloride ER [K-Dur 20] 20 meq PO DAILY Furosemide [Lasix] 40 mg PO DAILY #0 Spironolactone [Aldactone] 25 mg PO DAILY #30 tab Levothyroxine Sodium [Synthroid] 25 mcg PO SUMOWEFRSA Metoprolol Tartrate [Lopressor] 50 mg PO BID Changed Warfarin [Coumadin] 7.5 mg PO DAILY #0 Discontinued Atorvastatin [Lipitor] 20 mg PO HS Allopurinol [Zyloprim] 300 mg PO DAILY Aspirin 81 mg PO DAILY chew Warfarin [Coumadin] 5 mg PO TH Discharge Medication List Potassium Chloride ER [K-Dur 20] 20 meq PO DAILY 04/17/17 [History] Furosemide [Lasix] 40 mg PO DAILY #0 04/20/17 [Rx] Spironolactone [Aldactone] 25 mg PO DAILY #30 tab 03/08/18 [Rx] Levothyroxine Sodium [Synthroid] 25 mcg PO SUMOWEFRSA 01/21/19 [History] Metoprolol Tartrate [Lopressor] 50 mg PO BID 01/21/19 [History] Allopurinol [Zyloprim] 100 mg PO DAILY #1 tablet 01/31/19 [Rx] DAPTOmycin [Cubicin] 600 mg IVPB Q24H #7 vial 01/31/19 [Rx] Famotidine [Pepcid] 20 mg PO BID #1 tablet 01/31/19 [Rx] Midodrine [ProAmatine] 5 mg PO AC-TID #30 tab 01/31/19 [Rx] Warfarin [Coumadin] 7.5 mg PO DAILY #0 01/31/19 [Rx] diphenhydrAMINE ELIXIR [Benadryl Elixir] 12.5 mg PO QID 5 Days ml 01/31/19 [Rx] metroNIDAZOLE [Flagyl] 500 mg PO TID #21 tab 01/31/19 [Rx] predniSONE 10 mg PO DAILY #30 tab 01/31/19 [Rx] Follow up Appointment(s)/Referral(s): Sherman Hall MD [Primary Care Provider] - 1-2 days Radha Acosta, [NON-STAFF] - Kana Miller DO [STAFF PHYSICIAN] - 1 Week Sal Goodwin MD [STAFF PHYSICIAN] - 02/12/19 4:00 pm Patient Instructions/Handouts: Heart Failure (DC), Heart Healthy Diet (DC), Acute Wound Care (DC), Warfarin Toxicity (ED) Activity/Diet/Wound Care/Special Instructions: CHF 1. Weigh yourself every morning after you urinate. If you gain 2-3 pounds overnight or 5 pounds in one week, call your primary physician for guidance on your medications. Keep a log of your weights. 2. Avoid salt, or foods with hidden salt. Extra salt makes your heart work harder and traps the fluid in your body for longer. 3. Take all of your medications as directed, especially your water pills. NEVER skip a dose. 4. Elevate your legs when you are not up moving around to help with circulation and prevent swelling. 5. Call your physician if you notice any extra swelling in your legs, ankles, feet or abdomen, if you have a new dry cough, if your shortness of breath worsens with activity or at rest, or if you feel more fatigued.
--- NOTE | 2019-01-31 13:57 | PN ---
PROGRESS NOTE DATE OF SERVICE: 01/31/2019 REASON FOR FOLLOWUP: 1. Left leg cellulitis. 2. Drug rash. INTERVAL HISTORY: The patient is currently afebrile. Patient is breathing comfortably. Denies having any chest pain. No cough. No nausea, no vomiting. No abdominal pain or pain to the left leg area. PHYSICAL EXAMINATION: Blood pressure 100/56, pulse of 71, temperature of 97.4. He is 97% on 2 L nasal cannula. General description is a middle-aged male, up in the chair in no distress. RESPIRATORY SYSTEM: Unlabored breathing, decreased breath sounds at the bases, no wheeze. HEART: S1, S2. Regular rate and rhythm. ABDOMEN: Soft, no tenderness. LEGS: Left leg swelling persists, redness has slightly decreased. LABS: Creatinine 1.49, iron is 1.4. DIAGNOSTIC IMPRESSION AND PLAN: Patient with left leg wound with secondary cellulitis, culture has been positive for MSSA strep and anaerobes in this patient who did have an allergic reaction to UNASYN. Currently on daptomycin as clinically this morning. The plan is to finish therapy with IV daptomycin or Flagyl for another week. Local care to continue with Aquacel Silver dressing and Hermes wrap to keep the swelling down and continue supportive care. MMODL / IJN: [id number] /
[2019-01-31] MEDS ORDERED: diphenhydrAMINE ELIXIR 25 MG/10 ML CUP PO SCH (14:00)
--- NOTE | 2019-01-31 14:04 | P.PN ---
Subjective Progress Note Date: 01/31/19 Principal diagnosis: Acute on chronic systolic congestive heart failure, cellulitis of the left lower extremity This 63-year-old male patient was being seen in follow-up in intensive care unit regarding his congestion heart failure and fluid overload. Noted the patient has chronic systolic heart failure with an ejection fraction of 20%. The patient has chronic lower extremity edema and fluid overload in addition to ones lower extremity. He is also battling a cellulitis of the left lower extremity. He does have chronic sores and wounds especially the ones in the left lower extremity which are currently dressed appropriately and the patient is also covered with antibiotics. In summary, the patient is improving. He is currently on 6 L of oxygen by nasal cannula. He is receivingLasix at 5 mg an hour and is also producing adequate amount of urine output and he has been a negative fluid balance. The patient's chest x-ray from yesterday still showing pulmonary vessel congestion/edema, although, there has been some improvement in his oxygenation and his breathing better and is less short of breath. As for the lower extremity edema, it is improving. He continues to have some erythema and warmth the medial aspect of the left thigh secondary to his underlying cellulitis. Cultures from the wound have shown group G strep and staph. The patient also has been antibiotics including a combination of cefazolin and clindamycin. He is on long-term anticoagulation and he is on warfarin and his INR today is at 1.7 which is lower compared to yesterday. He continues to improve in terms of his renal function. Creatinine is down to 1.6. Electrolytes all within normal limits. LFTs are also improving with the AST is down to 257 and ALT is down to 632. No nausea. No vomiting. No emesis. No altered mentation. No other complaints otherwise for now. On today's evaluation of 01/28/2019, the patient is awake and alert. He has no specific complaints. I noted that cellulitis and left lower extremity is progressively getting worse. After that cellulitis above the prather that were placed earlier and is extending to his upper thigh and the lower abdominal area. His white cell count is also elevated. Based on that, the cefazolin and clindamycin were discontinued and the patient was placed on IV Unasyn 3 g every 6 hours. He remains on Lasix drip at 5 mg an hour. The net fluid balance over the past 24 hours of been -850 mL. Lower extremity edema is improved. He remains in atrial fibrillation. PT/INR is subtherapeutic. Heart rate is slightly above 100. No nausea. No vomiting. He was on 6 L of oxygen by nasal cannula and FiO2 was not found to 4 L and we are in the The process of weaning down the FiO2 further. His chest x-ray shows cardiomegaly and mild pulmonary vessel congestion. As for rate control, the patient is on and the patient's creatinine is stable for now at 1.67. LFTs were slowly improving. The patient is seen today in 01/30/2019 in follow-up on the regular medical floor. He is awake and alert in no acute distress. He is sitting up in a chair at the bedside. The redness and warmth of the left lower extremity has extended up into his abdomen and on his back. He is currently on daptomycin now. The rash is quite itchy. He is on oral Benadryl. Ultracet left lower extremity revealed anaerobic gram-positive cocci and anaerobic gram-negative bacilli along with Staphylococcus aureus and beta-hemolytic strep group G. INR 1.8. Sodium 136. Potassium 3.7. BUN 102. Creatinine 1.78. He remains on IV Lasix at 40 mg daily. Anticoagulated with warfarin. The patient is seen today 01/31/2019 in follow-up on the selective care unit. He is currently sitting up in a chair at the bedside. Awake and alert in no acute distress. He's had ongoing rash with redness and warmth of the left lower extremity extending up into the abdomen and back. Suspect ALLERGIC reaction to Unasyn on top of lower extremity cellulitis. He is currently on daptomycin and Flagyl. He's been maintained on Benadryl and IV Solu-Medrol. Currently on Lasix 40 mg IV daily. Sodium 138. Potassium 4.2. Creatinine 1.49. Objective - Vital Signs Vital signs: Vital Signs Temp 97.4 F L 01/31/19 11:40 Pulse 71 01/31/19 11:40 Resp 16 01/31/19 11:40 BP 100/56 01/31/19 11:40 Pulse Ox 97 01/31/19 11:40 Intake & Output 01/30/19 01/31/19 01/31/19 18:59 06:59 18:59 Intake Total 260 222 480 Output Total 353 058 0183 Balance -110 -578 -570 Weight 153.3 kg Intake: Oral 260 222 480 Output: Urine 260 494 1541 Other: Voiding Method Urinal Urinal # Voids 3 1 - Exam Gen. appearance is calm and comfortable pleasant 63-year-old gentleman, morbidly obese with a BMI of 51.4 on 2 L nasal cannula. Head exam was generally normal. There was no scleral icterus or corneal arcus. Mucous membranes were moist. Neck was supple and without jugular venous distension, thyromegaly, or carotid bruits. Carotids were easily palpable bilaterally. There was no adenopathy. The patient has a Mallampati class IV. There is no goiter or neck masses. Lungs sounds are diminished bilaterally especially in lung bases along with some bibasilar crackles. Heart sounds are regular rate and rhythm. There is a faint systolic ejection murmur that can be heard along the left sternal border. No rubs. No gallop rhythm. Abdomen is obese soft nontender. Organs cannot be accurately palpated. There is no direct tenderness or rebound tensile guarding at this point in time. Bowel sounds are present. Extremities revealed +1-2 pitting edema. Lower extremities are wrapped. The erythema is more on the left especially in the area between the knee and the mediastinum and anterior thigh. There are some older ones and sloughed skin in the medial aspect of the foot along the area of the malleolus extending posteriorly in the area needs to be debrided. The pulses in lower extremities are diminished. There are palpable. No cyanosis. There is poor toenail hygiene. Neurologically, the patient is awake and alert and there is no focal neurological deficit. Psychiatrically, there is no significant anxiety or depression at this point in time Skin the patient has chronic cellulitis of the left lower extremity along with erythema and warmth especially in the medial aspect of the left thigh in addition to chronic wounds in lower extremities more so on the left lower extremity at the level of the left malleolus. The overlying skin is sloughed, the underlying skin his forming units healthy. The areas of skin needs to be debrided. - Labs CBC & Chem 7: 01/28/19 04:42 01/31/19 06:47 Labs: Abnormal Lab Results - Last 24 Hours (Table) 1101/31/19 01/31/19 Range/Units 06:29 06:47 09:22 PT 13.9 H (9.0-12.0) sec INR 1.4 H (<1.2) BUN 92 H (9-20) mg/dL Creatinine 1.49 H (0.66-1.25) mg/dL Glucose 138 H (74-99) mg/dL POC Glucose (mg/dL) 134 H (75-99) mg/dL 01/31/19 Range/Units 12:03 PT (9.0-12.0) sec INR (<1.2) BUN (9-20) mg/dL Creatinine (0.66-1.25) mg/dL Glucose (74-99) mg/dL POC Glucose (mg/dL) 159 H (75-99) mg/dL Assessment and Plan Assessment: 1 acute on chronic systolic heart failure with an ejection fraction of 20-25% with obvious signs of fluid overload 2 acute on chronic hypoxic respiratory failure currently on 4liters by nasal cannula 3 acute kidney injury improving and the creatinine is down to 1.78 4 chronic lower extremity edema 5 cellulitis left lower extremity extending into the left thigh abdomen and back with MSSA and strep group G currently on daptomycin and Flagyl 6 leukocytosis secondary to above, with a rise in the white cell count up to 19,400 and the patient is developing worsening cellulitis of the left lower extremity extending to his upper thigh and lower abdominal area. 7 hypertension 8 hyperlipidemia 9 obesity with BMI of 50.4 10 hypothyroidism, improving 11 paroxysmal atrial fibrillation the patient has been on long-term articulation with warfarin with a subtherapeutic PT/INR on today's evaluation 12 left bundle branch block pattern along with episodic A. fib/flutter 13 abnormal LFTs, improving Plan The patient was seen and evaluated by Dr. Heaton. He is stable from the pulmonary standpoint. On Lasix 40 mg IV daily now. 2 L of nasal cannula. The redness and warmth of the left lower extremity has extended up into his thigh abdomen and back. He is currently on daptomycin and Flagyl. Suspect ALLERGIC reaction to Unasyn. Continued on Benadryl and prednisone. ID is on the case. I, the cosigning physician, performed a history & physical examination of the patient. Lungs sounds diminished more so on the left lung base with basilar crackles. Maintaining good O2 saturations in the 90s on 2 L/m per nasal cannula. I discussed the assessment and plan of care with my nurse practitioner, Alina Patel. I attest to the above note as dictated by her.
[2019-01-31] MEDS ORDERED: WARFARIN 3 MG TAB PO ONE (18:00)
--- NOTE | 2019-01-31 20:00 | PN ---
PROGRESS NOTE Patient is seen for followup for acute kidney injury which was mainly cardiorenal and improved with diuresis. Lasix was decreased and is currently maintained on once a day dosing of IV Lasix. The patient is doing well. He had a rash which seems to have improved as well. PHYSICAL EXAMINATION: This morning blood pressure was 100/56, heart rate 71 per minute, patient is afebrile. Examination of the heart S1, S2. Examination of the lungs, bilateral breath sounds are heard. Abdomen is soft, non-tender. Examination of lower extremities shows chronic skin changes, mainly the left leg with much decreased redness. Edema is decreased. There is significant dryness of the skin noted now. RUBBER HEEL AND SOLE PRESS TENDER exam grossly intact. LABS: Sodium 138, potassium 4.2, BUN 92, serum creatinine 1.49. ASSESSMENT: 1. Acute kidney injury, cardiorenal and secondary to recent diuresis currently improved. 2. Cellulitis, left lower extremity, improved, maintained on antibiotics. 3. Maculopapular rash, most likely allergic reaction to antibiotics, now improved. PLAN: Continue with current dose of Lasix. Switch to p.o. in a.m. MMODL / IJN: [id number] /
[2019-02-01] MEDS ORDERED: WARFARIN 2.5 MG TAB PO SCH (18:00)
== END 2019-01-31 16:24 | DRG 871 ==
LOC: EC 11:05 → 3SCARD 13:52 → 2SICU 01-24 11:51 → 3SCARD 01-28 15:06
PROVIDERS: ADMIT Hospitalist; ATTEND Hospitalist
PROC: 05HF33Z Insertion of Infusion Device into Left Cephalic Vein, Percutaneous Approach (ICD-10-PCS; principal; 2019-01-30 11:30)
DX: A41.9 Sepsis, unspecified organism (principal); I50.43 Acute on chronic combined systolic (congestive) and diastolic (congestive) heart failure; J96.21 Acute and chronic respiratory failure with hypoxia; K72.00 Acute and subacute hepatic failure without coma; B17.9 Acute viral hepatitis, unspecified; D68.9 Coagulation defect, unspecified; E87.1 Hypo-osmolality and hyponatremia; E87.2 Acidosis; I13.0 Hypertensive heart and chronic kidney disease with heart failure and stage 1 through stage 4 chronic kidney disease, or unspecified chronic kidney disease; I42.9 Cardiomyopathy, unspecified; I48.19 Other persistent atrial fibrillation; I48.92 Unspecified atrial flutter; L03.115 Cellulitis of right lower limb; L03.116 Cellulitis of left lower limb; N17.9 Acute kidney failure, unspecified; N39.0 Urinary tract infection, site not specified; Z68.43 Body mass index [BMI] 50.0-59.9, adult; D69.6 Thrombocytopenia, unspecified; E03.9 Hypothyroidism, unspecified; E66.01 Morbid (severe) obesity due to excess calories; E78.5 Hyperlipidemia, unspecified; E87.5 Hyperkalemia; E87.6 Hypokalemia; T50.2X5A Adverse effect of carbonic-anhydrase inhibitors, benzothiadiazides and other diuretics, initial encounter; G47.30 Sleep apnea, unspecified; I25.2 Old myocardial infarction; I25.10 Atherosclerotic heart disease of native coronary artery without angina pectoris; I44.7 Left bundle-branch block, unspecified; I87.2 Venous insufficiency (chronic) (peripheral); I87.8 Other specified disorders of veins; K76.1 Chronic passive congestion of liver; L27.0 Generalized skin eruption due to drugs and medicaments taken internally; N18.3 Chronic kidney disease, stage 3 (moderate); T36.95XA Adverse effect of unspecified systemic antibiotic, initial encounter; T45.515A Adverse effect of anticoagulants, initial encounter; Z79.01 Long term (current) use of anticoagulants; Z79.82 Long term (current) use of aspirin; Z79.890 Hormone replacement therapy; Z79.899 Other long term (current) drug therapy; Z80.9 Family history of malignant neoplasm, unspecified; Z82.3 Family history of stroke; Z85.828 Personal history of other malignant neoplasm of skin; Z87.01 Personal history of pneumonia (recurrent); Z98.42 Cataract extraction status, left eye; Z98.41 Cataract extraction status, right eye; Z96.1 Presence of intraocular lens; Z88.0 Allergy status to penicillin; Z88.8 Allergy status to other drugs, medicaments and biological substances; R79.89 Other specified abnormal findings of blood chemistry
CPT/HCPCS: 36410; 36415; 36600; 71045; 71046; 76705; 76770; 76937; 80048; 80053; 80061; 80074; 81001; 82140; 82805; 83605; 83735; 83880; 84100; 84132; 84439; 84443; 84481; 84484; 85025; 85027; 85610; 85730; 87040; 87070; 87075; 87077; 87086; 87101; 87186; 87205; 87502; 93005; 93306; 94640; 94760; 96365; 96366; 99291

== ENCOUNTER 2019-06-05 16:22 | Inpatient (IN) | payer BC ==
[2019-06-05] MEDS ORDERED: SODIUM CHLORIDE 0.9% 500 ML 500 ML IV STA (16:27)
[2019-06-05] MEDS ORDERED: HEPARIN SODIUM,PORCINE 5,000 UNIT/ML 1 ML VIAL IV PRN (16:28)
[2019-06-05] MEDS ORDERED: HEPARIN SODIUM,PORCINE 10,000 UNIT/ML 1 ML VIAL IV ONE (16:28)
[2019-06-05] MEDS ORDERED: HEPARIN SOD,PORK IN 0.45% NACL 25,000 UNIT in 0.45% NACL 1 250ML.BAG IV SCH (16:30)
--- NOTE | 2019-06-05 17:05 | ED ---
General Adult HPI - General Chief complaint: Shortness of Breath Stated complaint: Chest Pain Time Seen by Provider: 06/05/19 16:27 Source: patient, EMS Mode of arrival: EMS Limitations: no limitations - History of Present Illness Initial comments: Dictation was produced using [employer] dictation software. please excuse any grammatical, word or spelling errors. Chief Complaint: 63-year-old male multiple comorbid disease presents with acute dyspnea History of Present Illness: Patient is 63-year-old male past medical history of atrial fibrillation heart failure dyslipidemia and pneumonia presents with increasing shortness of breath. Patient states that over the last several days he's been having worsening shortness of breath. Patient is history of heart failure. He has been admitted for heart failure past. Patient is a pink place. He called EMS and EMS performed an EKG and was concerned about possible STEMI. Patient has no chest pain. Patient does have lower extremity pain. His left lower extremity is red and painful. He states that the pain has been getting worse. He does have a history of this. Denies any orthopnea. No nausea or vomiting. Patient does take Coumadin for atrial fibrillation. He states she's been compliant with his medicine. The ROS documented in this emergency department record has been reviewed and confirmed by me. Those systems with pertinent positive or negative responses have been documented in the HPI. All other systems are other negative and/or noncontributory. PHYSICAL EXAM: General Impression: Alert and oriented x3, dyspneic, morbidly obese HEENT: Normocephalic atraumatic, extra-ocular movements intact, pupils equal and reactive to light bilaterally, mucous membranes moist. Cardiovascular: Heart regular rate and rhythm, S1&S2 audible, no murmurs, rubs or gallops Chest: Limited secondary to body habitus however sounds clear Abdomen: Bowel sounds present, abdomen soft, non-tender, non-distended, no organomegaly Musculoskeletal: Bilateral external swelling, severe swelling pitting edema and erythema to the left distal lower extremity Motor: no focal deficits noted Neurological: CN II-XII grossly intact, no focal motor or sensory deficits noted ED course: 63-year-old male presents with acute dyspnea. As upon arrival shows blood pressure 108/83, worse vital signs within acceptable limits. Patient is dyspneic at bedside. Rapid EKG was performed does not suggest STEMI. There is findings of left bundle branch block which appears to be stable compared to patient's most recent EKG from December 2018. Chart review shows that patient has significant cardiac history with significantly depressed heart failure. Laboratory evaluation obtained. Leukocytosis of 19.8. Is unclear whether this is secondary to stress or infection given the appearance of the left lower extremity. It is 126. He does have increased neutrophils. Coag panel shows therapeutic INR 2.4. Metabolic panel shows mild anion gap acidosis cranial 2.12 with a BUN of 42. Lactic acidosis of 4.4. Troponin 0.052 which appears to be lower than patient's baseline. Prematurity peptide is 25,000. Given appearance of patient's left lower extremity and shortness of breath. He was part of the differential. Given patient's creatinine elevation he is not a good candidate for contrast exposure. An attempt was made to have patient go to nuclear medicine for VQ scan however he does not tolerate lying flat likely because of heart failure and his body habitus. D-dimer is -0.19. Heparin was initially started however it was canceled given that likelihood of pulmonary embolism is very unlikely. Patient was missed on BiPAP temporarily. He does have a lactic acidosis. Believe this lactic acidosis is from respiratory cause. Discussed patient case with Dr. Marte. He recommended starting patient on Lasix. Dr. Marte requests consultations to cardiology and infectious disease. There is concern that patient's left lower extremity represent cellulitis. Patient given dose of vancomycin and cefepime. There is absolutely some concern of sepsis. Patient however and respiratory distress likely secondary to heart failure. Patient is not given 30-40 mL per KG bolus for concerns of possible fluid overload. EKG interpretation: Ventricular rate 120, sinus tachycardia, HI interval 154, QRS 146, QTC 473. No HI prolongation, no QTC prolongation, no ST or T-wave changes noted. EKG compared to 01/21/2019 showing no changes. Overall, this EKG is unremarkable - Related Data Home Medications Medication Instructions Recorded Confirmed Potassium Chloride ER [K-Dur 20] 20 meq PO DAILY 04/17/17 01/21/19 Levothyroxine Sodium [Synthroid] 25 mcg PO SUMOWEFRSA 01/21/19 01/21/19 Metoprolol Tartrate [Lopressor] 50 mg PO BID 01/21/19 01/21/19 Previous Rx's Medication Instructions Recorded Furosemide [Lasix] 40 mg PO DAILY #0 04/20/17 Spironolactone [Aldactone] 25 mg PO DAILY #30 tab 03/08/18 Allopurinol [Zyloprim] 100 mg PO DAILY #1 tablet 01/31/19 DAPTOmycin [Cubicin] 600 mg IVPB Q24H #7 vial 01/31/19 Famotidine [Pepcid] 20 mg PO BID #1 tablet 01/31/19 Midodrine [ProAmatine] 5 mg PO AC-TID #30 tab 01/31/19 Warfarin [Coumadin] 7.5 mg PO DAILY #0 01/31/19 diphenhydrAMINE ELIXIR [Benadryl 12.5 mg PO QID 5 Days ml 01/31/19 Elixir] metroNIDAZOLE [Flagyl] 500 mg PO TID #21 tab 01/31/19 predniSONE 10 mg PO DAILY #30 tab 01/31/19 Allergies Allergy/AdvReac Type Severity Reaction Status Date / Time ampicillin [From Unasyn] Allergy Rash/Hives Verified 06/05/19 16:29 sulbactam [From Unasyn] Allergy Rash/Hives Verified 06/05/19 16:29 Review of Systems ROS Statement: Those systems with pertinent positive or pertinent negative responses have been documented in the HPI. ROS Other: All systems not noted in ROS Statement are negative. Past Medical History Past Medical History: Atrial Fibrillation, Coronary Artery Disease (CAD), Cancer, Heart Failure, Hyperlipidemia, Hypertension, Myocardial Infarction (VA), Pneumonia, Renal Disease, Thyroid Disorder Additional Past Medical History / Comment(s): Bronchitis, possible VA per EKG, hypothyroid, CKD stage III, bilateral lower extremity venous insufficiency/chronic venous stasis/past cellulitis bilateral lower legs, skin cancer with removals. Last Myocardial Infarction Date:: unkn History of Any Multi-Drug Resistant Organisms: None Reported Past Surgical History: Adenoidectomy, Tonsillectomy Additional Past Surgical History / Comment(s): Bilateral cataract removals/lens implants, skin cancer removals L hand/L shoulder/L ear, midline IV-since removed. Past Anesthesia/Blood Transfusion Reactions: No Reported Reaction Past Psychological History: No Psychological Hx Reported Smoking Status: Never smoker Past Alcohol Use History: None Reported Past Drug Use History: None Reported - Past Family History Father Family Medical History: CVA/TIA Additional Family Medical History / Comment(s): Father at the age of 90yrs. Mother Family Medical History: Cancer Additional Family Medical History / Comment(s): Mother from cancer (unknown type) at age 80s General Exam Limitations: no limitations Course Vital Signs 06/05/19 06/05/19 06/05/19 16:24 16:35 18:50 Temperature 98.5 F Pulse Rate 72 72 Respiratory 22 26 H Rate Blood Pressure 83/38 108/83 109/89 O2 Sat by Pulse 95 94 L Oximetry 06/05/19 19:40 Temperature Pulse Rate 55 L Respiratory 28 H Rate Blood Pressure 98/79 O2 Sat by Pulse 92 L Oximetry Medical Decision Making - Lab Data Result diagrams: 06/05/19 17:23 06/05/19 17:21 Lab Results 06/05/19 06/05/19 06/05/19 Range/Units 16:40 16:40 17:21 WBC (3.8-10.6) k/uL RBC (4.30-5.90) m/uL Hgb (13.0-17.5) gm/dL Hct (39.0-53.0) % MCV (80.0-100.0) fL MCH (25.0-35.0) pg MCHC (31.0-37.0) g/dL RDW (11.5-15.5) % Plt Count (150-450) k/uL Neutrophils % % Lymphocytes % % Monocytes % % Eosinophils % % Basophils % % Neutrophils # (1.3-7.7) k/uL Lymphocytes # (1.0-4.8) k/uL Monocytes # (0-1.0) k/uL Eosinophils # (0-0.7) k/uL Basophils # (0-0.2) k/uL Manual Slide Review Large Platelets Polychromasia Anisocytosis (manual) Stomatocytes PT 23.7 H (9.0-12.0) sec INR 2.4 H (<1.2) APTT 31.6 H (22.0-30.0) sec D-Dimer 0.19 (<0.60) mg/L FEU Sodium 135 L (137-145) mmol/L Potassium 4.9 (3.5-5.1) mmol/L Chloride 97 L (98-107) mmol/L Carbon Dioxide 21 L (22-30) mmol/L Anion Gap 17 mmol/L BUN 42 H (9-20) mg/dL Creatinine 2.12 H (0.66-1.25) mg/dL Est GFR (CKD-EPI)AfAm 38 (>60 ml/min/1.73 sqM) Est GFR (CKD-EPI)NonAf 32 (>60 ml/min/1.73 sqM) Glucose 129 H (74-99) mg/dL Plasma Lactic Acid Dario (0.7-2.0) mmol/L Calcium 9.6 (8.4-10.2) mg/dL Magnesium 1.9 (1.6-2.3) mg/dL Total Bilirubin 6.1 H (0.2-1.3) mg/dL AST 41 (17-59) U/L ALT 23 (4-49) U/L Alkaline Phosphatase 95 (38-126) U/L Troponin I 0.052 H* (0.000-0.034) ng/mL NT-Pro-B Natriuret Pep pg/mL Total Protein 7.4 (6.3-8.2) g/dL Albumin 4.3 (3.5-5.0) g/dL 06/05/19 06/05/19 06/05/19 Range/Units 17:21 17:21 17:23 WBC 19.8 H (3.8-10.6) k/uL RBC 5.22 (4.30-5.90) m/uL Hgb 15.6 (13.0-17.5) gm/dL Hct 49.2 (39.0-53.0) % MCV 94.3 (80.0-100.0) fL MCH 30.0 (25.0-35.0) pg MCHC 31.8 (31.0-37.0) g/dL RDW 15.6 H (11.5-15.5) % Plt Count 126 L (150-450) k/uL Neutrophils % 92 % Lymphocytes % 3 % Monocytes % 3 % Eosinophils % 1 % Basophils % 0 % Neutrophils # 18.2 H (1.3-7.7) k/uL Lymphocytes # 0.6 L (1.0-4.8) k/uL Monocytes # 0.5 (0-1.0) k/uL Eosinophils # 0.2 (0-0.7) k/uL Basophils # 0.0 (0-0.2) k/uL Manual Slide Review Performed Large Platelets Present Polychromasia Present Anisocytosis (manual) Present Stomatocytes Present PT (9.0-12.0) sec INR (<1.2) APTT (22.0-30.0) sec D-Dimer (<0.60) mg/L FEU Sodium (137-145) mmol/L Potassium (3.5-5.1) mmol/L Chloride (98-107) mmol/L Carbon Dioxide (22-30) mmol/L Anion Gap mmol/L BUN (9-20) mg/dL Creatinine (0.66-1.25) mg/dL Est GFR (CKD-EPI)AfAm (>60 ml/min/1.73 sqM) Est GFR (CKD-EPI)NonAf (>60 ml/min/1.73 sqM) Glucose (74-99) mg/dL Plasma Lactic Acid Dario 4.4 H* (0.7-2.0) mmol/L Calcium (8.4-10.2) mg/dL Magnesium (1.6-2.3) mg/dL Total Bilirubin (0.2-1.3) mg/dL AST (17-59) U/L ALT (4-49) U/L Alkaline Phosphatase (38-126) U/L Troponin I (0.000-0.034) ng/mL NT-Pro-B Natriuret Pep 30819 pg/mL Total Protein (6.3-8.2) g/dL Albumin (3.5-5.0) g/dL Disposition Clinical Impression: Heart failure, Sepsis Disposition: ADMITTED IP TO THIS HOSP Condition: Fair Referrals: Sherman Hall MD [Primary Care Provider] - 1-2 days Decision Time: 20:05
[2019-06-05 17:13] LABS: D-Dimer 0.19 mg/L FEU (<0.60); INR 2.4 (<1.2); Partial Thromboplastin Time 31.6 sec (22.0-30.0); Prothrombin Time 23.7 sec (9.0-12.0)
[2019-06-05 17:37] LABS: Basophils % (A) 0 %; Eosinophils # (A) 0.2 k/uL (0-0.7); Eosinophils % (A) 1 %; HCT 49.2 % (39.0-53.0); HGB 15.6 gm/dL (13.0-17.5); Lymphocytes # (A) 0.6 k/uL (1.0-4.8); Lymphocytes % (A) 3 %; MCHC 31.8 g/dL (31.0-37.0); MCV 94.3 fL (80.0-100.0); Mean Platelet Volume 13.7; Monocytes # (A) 0.5 k/uL (0-1.0); Monocytes % (A) 3 %; Neutrophils # (A) 18.2 k/uL (1.3-7.7); Neutrophils % (A) 92 %; Platelet Count 126 k/uL (150-450); RBC 5.22 m/uL (4.30-5.90); RDW 15.6 % (11.5-15.5); WBC 19.8 k/uL (3.8-10.6)
[2019-06-05 17:53] LABS: Albumin 4.3 g/dL (3.5-5.0); Calcium 9.6 mg/dL (8.4-10.2); Magnesium 1.9 mg/dL (1.6-2.3); Potassium 4.9 mmol/L (3.5-5.1); Total Bilirubin 6.1 mg/dL (0.2-1.3); Total Protein 7.4 g/dL (6.3-8.2)
[2019-06-05 18:49] LABS: Anisocytosis (M) Present; Large Platelets Present; Polychromasia Present; Stomatocytes Present
[2019-06-05] MEDS ORDERED: VANCOMYCIN IV PER PHARMACY 1 EACH MISC MISCELLANE PRN (18:49)
[2019-06-05] MEDS ORDERED: CEFEPIME 2 GM in SODIUM CHLORIDE 0.9% 100 ML IVPB STA (18:49)
--- NOTE | 2019-06-05 18:54 | XR ---
EXAMINATION: XR chest 2V DATE AND TIME: 06/05/2019 5:41 PM CLINICAL INDICATION: PHH; difficulty breathing TECHNIQUE: Departmental protocol COMPARISON: 01/28/2019 FINDINGS: There is marked enlargement of the cardiac silhouette, it may be more so than the prior study. This c ould represent cardiomegaly and/or pericardial effusion. The lungs show a mild interstitial pattern consistent with pulmonary edema. No major atelectasis or f ocal pulmonary consolidation. The pleural spaces are negative. The skeletal structures and soft tissues are negative for acute findings. IMPRESSION: 1. Interstitial phase pulmonary edema, presumably cardiogenic etiology. 2. Markedly enlarged cardiac silhouette consistent with cardiomegaly and/or pericardial effusion.
[2019-06-05] MEDS ORDERED: VANCOMYCIN 2,500 MG in SODIUM CHLORIDE 0.9% 500 ML 500 ML IVPB STA (18:57)
[2019-06-05] MEDS ORDERED: FUROSEMIDE 10 MG/ML 4 ML VIAL IV STA (19:08)
[2019-06-05] MEDS ORDERED: ASPIRIN 325 MG TAB PO STA (19:58)
[2019-06-05] MEDS ORDERED: SODIUM CHLORIDE 0.9% 1,000 ML IV STA (20:18)
[2019-06-05 20:46] LABS: ABG Base Excess -2.9 mmol/L; ABG HCO3 20 mmol/L (21-25); ABG Oxygen Saturation 98.5 % (94-97); ABG PCO2 26 mmHg (35-45); ABG PO2 107 mmHg (83-108); ABG TCO2 21 mmol/L (19-24); Allen Test Performed? Yes
[2019-06-05] MEDS ORDERED: DILTIAZEM 125 MG in SODIUM CHLORIDE 0.9% 100 ML IV SCH (21:00)
--- NOTE | 2019-06-05 21:47 | XR ---
PROCEDURE: XR foot limited LT - 2V DATE AND TIME: 06/05/2019 9:22 PM CLINICAL INDICATION: PHH; cellulitis TECHNIQUE: Department protocol COMPARISON: None FINDINGS: There is extensive soft tissue swelling involving the foot and ankle. No radiopaque foreign body. No soft tissue emphysema. There is no evidence of fracture, and there is no malalignment. The heads of the metatarsals show os teopenic changes, etiology unclear. IMPRESSION: EXTENSIVE FOOT AND ANKLE SOFT TISSUE SWELLING. OSTEOPENIC METATARSAL HEADS. Note: These changes can be further characterized using MRI if clinically indicated.
[2019-06-05] MEDS ORDERED: WARFARIN 5 MG TAB PO ONE (22:00)
[2019-06-05 23:59] LABS: Glucose,Whole Blood 112 mg/dL (75-99)
[2019-06-06] MEDS ORDERED: NALOXONE 0.4 MG/ML 1 ML VIAL IV PRN (00:30)
[2019-06-06] MEDS ORDERED: FUROSEMIDE 10 MG/ML 4 ML VIAL IV SCH (04:00)
[2019-06-06 05:35] LABS: Basophils % (A) 0 %; Eosinophils # (A) 0.1 k/uL (0-0.7); Eosinophils % (A) 0 %; HCT 45.4 % (39.0-53.0); HGB 14.8 gm/dL (13.0-17.5); Lymphocytes # (A) 0.9 k/uL (1.0-4.8); Lymphocytes % (A) 7 %; MCH 30.6 pg (25.0-35.0); MCHC 32.5 g/dL (31.0-37.0); MCV 93.9 fL (80.0-100.0); Mean Platelet Volume 13.8; Monocytes # (A) 0.8 k/uL (0-1.0); Monocytes % (A) 6 %; Neutrophils # (A) 12.3 k/uL (1.3-7.7); Neutrophils % (A) 86 %; RBC 4.83 m/uL (4.30-5.90); RDW 15.7 % (11.5-15.5); WBC 14.3 k/uL (3.8-10.6)
[2019-06-06 05:36] LABS: Prothrombin Time 19.6 sec (9.0-12.0)
[2019-06-06 05:53] LABS: Albumin 3.4 g/dL (3.5-5.0); Potassium 4.6 mmol/L (3.5-5.1); Total Bilirubin 5.7 mg/dL (0.2-1.3); Total Protein 6.3 g/dL (6.3-8.2)
[2019-06-06 07:00] LABS: Large Platelets Present; Platelet Count 93 k/uL (150-450)
--- NOTE | 2019-06-06 10:23 | P.CNPUL ---
History of Present Illness Consult date: 06/06/19 Reason for consult: dyspnea, abnormal CXR/CT History of present illness: 63-year-old male patient with past medical history of chronic congestive heart failure, atrial fibrillation on Coumadin, cardiomyopathy with EF of less than 20%, will hypertension, with right-sided pressures of 41 mmHg , mild MR, mild TR, severe enlargement of the right ventricle, and moderately enlarged left atrium was noted on previous echocardiogram from December 2018. Other medical history includes morbid obesity, coronary artery disease, hypertension, hyper lipidemia, previous myocardial infarction, chronic kidney disease stage III, hypothyroidism, previous episodes of pneumonia, chronic venous stasis and previous episodes of cellulitis involving bilateral lower extremities. Patient is a lifetime nonsmoker, no history of chronic lung disease, he is not on home oxygen or CPAP device at home. Patient presented to the emergency department on 06/05/2019 at 1627 per EMS for evaluation of increasing shortness of breath, and concern for possibility of ST elevated [place], as per EKG performed by the EMS staff. In addition patient noted increasing lower extremity pain, redness, and swelling, his shortness of breath has been progressive over a period of 2 weeks, he has been orthopneic. Denied any fever or chills, denied any cough or congestion, denied chest pain. On arrival to the emergency department EKG was taken showing atrial fibrillation with left bundle branch block pattern that was unchanged from his most recent EKG. Patient was significantly dyspneic on presentation, lab work showed leukocytosis with a white blood cell count of 19.8, significantly reddened and painful and swollen lower extremities, left greater than right, increased neutrophils on the differential, metabolic panel showed mild anion gap acidosis, and lactic acidosis of 4.4, BUN of 42, and creatinine of 2.12, troponin was 0.052, and proBNP level of 25,000. D-dimer was negative at 0.19. Chest x-ray showed interstitial phase pulmonary edema, markedly enlarged cardiac silhouette. Left lower extremity x-ray was completed showing extensive foot and ankle soft tissue swelling, osteopenic metatarsal heads. Patient was placed on BiPAP support for worsening dyspnea, with pressures of 14/7, and FiO2 of 100%, started on IV diuretics and was given cefepime and vancomycin. Patient states he developed a generalized rash on chest, abdomen, and back. He states the rash on his chest is not itchy, however it is itchy on his back Review of Systems All systems: negative Constitutional: Denies chills, Denies fever Eyes: denies blurred vision, denies pain Ears, nose, mouth and throat: Denies headache, Denies sore throat Cardiovascular: Reports decreased exercise tolerance, Reports dyspnea on exertion, Reports edema, Reports leg edema, Reports paroxysmal nocturnal dyspnea, Reports shortness of breath, Denies chest pain Respiratory: Reports dyspnea, Denies cough Gastrointestinal: Denies abdominal pain, Denies diarrhea, Denies nausea, Denies vomiting Musculoskeletal: Denies myalgias Musculoskeletal: bilateral: ankle swelling, foot swelling, knee swelling Integumentary: Reports color changes, Reports rash, Denies pruritus Neurological: Denies numbness, Denies weakness Psychiatric: Denies anxiety, Denies depression Endocrine: Denies fatigue, Denies weight change Allergic/Immunologic: Reports as per HPI Past Medical History Past Medical History: Atrial Fibrillation, Coronary Artery Disease (CAD), Cancer, Heart Failure, Hyperlipidemia, Hypertension, Myocardial Infarction ([place]), Pneumonia, Renal Disease, Thyroid Disorder Additional Past Medical History / Comment(s): Bronchitis, possible [place] per EKG, hypothyroid, CKD stage III, bilateral lower extremity venous insufficiency/chronic venous stasis/past cellulitis bilateral lower legs, skin cancer with removals. Last Myocardial Infarction Date:: unkn History of Any Multi-Drug Resistant Organisms: None Reported Past Surgical History: Adenoidectomy, Tonsillectomy Additional Past Surgical History / Comment(s): Bilateral cataract removals/lens implants, skin cancer removals L hand/L shoulder/L ear, midline IV-since removed. Past Anesthesia/Blood Transfusion Reactions: No Reported Reaction Past Psychological History: No Psychological Hx Reported Additional Psychological History / Comment(s): Pt resides with a roomate. He is retired. He uses no assistive device. He drives. Smoking Status: Never smoker Past Alcohol Use History: None Reported Past Drug Use History: None Reported - Past Family History Father Family Medical History: CVA/TIA Additional Family Medical History / Comment(s): Father at the age of 90yrs. Mother Family Medical History: Cancer Additional Family Medical History / Comment(s): Mother from cancer (unknown type) at age 80s Medications and Allergies Home Medications Medication Instructions Recorded Confirmed Type Potassium Chloride ER [K-Dur 20] 20 meq PO DAILY 04/17/17 01/21/19 History Furosemide [Lasix] 40 mg PO DAILY #0 04/20/17 01/21/19 Rx Spironolactone [Aldactone] 25 mg PO DAILY #30 tab 03/08/18 01/21/19 Rx Levothyroxine Sodium [Synthroid] 25 mcg PO SUMOWEFRSA 01/21/19 01/21/19 History Metoprolol Tartrate [Lopressor] 50 mg PO BID 01/21/19 01/21/19 History Allopurinol [Zyloprim] 100 mg PO DAILY #1 tablet 01/31/19 Rx Famotidine [Pepcid] 20 mg PO BID #1 tablet 01/31/19 Rx Midodrine [ProAmatine] 5 mg PO AC-TID #30 tab 01/31/19 Rx Warfarin Sodium 5 mg PO SUMOTUWETHSA 06/05/19 06/05/19 History Warfarin Sodium [Coumadin] 7.5 mg PO FR 06/05/19 06/05/19 History Levothyroxine Sodium [Synthroid] 50 mcg PO SUTUTHSA 06/06/19 06/06/19 History Allergies Allergy/AdvReac Type Severity Reaction Status Date / Time ampicillin [From Unasyn] Allergy Rash/Hives Verified 06/06/19 10:09 sulbactam [From Unasyn] Allergy Rash/Hives Verified 06/06/19 10:09 Physical Exam Vitals: Vital Signs Temp Pulse Pulse Resp BP BP Pulse Ox 06/06/19 08:00 97.4 F L 90 14 104/75 96 06/06/19 07:00 81 15 06/06/19 06:00 90 18 92/45 97 06/06/19 05:00 114 H 19 129/56 06/06/19 04:00 93 17 136/104 06/06/19 03:00 93 15 06/06/19 02:00 100 21 99 06/06/19 01:18 120 H 24 96 06/05/19 23:50 98.5 F 141 H 35 H 124/75 92 L 06/05/19 23:00 98.1 F 121 H 32 H 121/80 92 L 06/05/19 22:30 123 H 26 H 110/79 92 L 06/05/19 22:15 116 H 26 H 93/74 92 L 06/05/19 22:00 142 H 22 97/85 94 L 06/05/19 21:54 126 H 26 H 97/85 92 L 06/05/19 21:30 123 H 26 H 109/70 92 L 06/05/19 21:00 124 H 31 H 115/65 98 06/05/19 20:20 72 27 H 104/39 92 L 06/05/19 19:40 55 L 28 H 98/79 92 L 06/05/19 18:50 72 26 H 109/89 94 L 06/05/19 16:35 108/83 06/05/19 16:24 98.5 F 72 22 83/38 95 Intake and Output 06/05/19 06/06/19 06/06/19 22:59 06:59 14:59 Intake Total 500 Output Total 335 525 Balance 165 -525 Intake: IV 500 Vancomycin 2,500 mg In 500 Sodium Chloride 0.9% 500 ml 500 ml @ 167 mls/hr IVPB ONCE STA Rx#: [id number] Output: Urine 335 525 Other: Voiding Method Indwelling Catheter Weight 149.685 kg 149.685 kg GENERAL EXAM: Sleepy but arousable, obese white male, on BiPAP support currently on pressures of 14/7, and FiO2 of 40%, comfortable in no apparent distress. HEAD: Normocephalic/atraumatic. EYES: Normal reaction of pupils, equal size. Conjunctiva pink, sclera white. NOSE: Clear with pink turbinates. THROAT: No erythema or exudates. NECK: No masses, no JVD, no thyroid enlargement, no adenopathy. CHEST: No chest wall deformity. Symmetrical expansion. Generalized macular rash on chest, abdomen, back and arms LUNGS: very diminished breath sounds over left chest, crackles over right lower lobe CVS: Irregular rate and rhythm, distant S1 and S2, no gallops, no murmurs, no rubs ABDOMEN: Soft, nontender, obese with macular rash all over the old abdomen. No hepatosplenomegaly, normal bowel sounds, no guarding or rigidity. EXTREMITIES: No clubbing, extensive edema involving bilateral lower extremities with cellulitis redness and tenderness left greater than right, onychomycosis, dry cracked skin on bilateral soles, no cyanosis, 1+ pulses and upper and lower extremities. MUSCULOSKELETAL: Muscle strength and tone normal. SPINE: No scoliosis or deformity SKIN: Generalized macular rash on chest abdomen and back CENTRAL NERVOUS SYSTEM: Alert and oriented -3. No focal deficits, tone is normal in all 4 extremities. PSYCHIATRIC: Alert and oriented -3. Appropriate affect. Intact judgment and insight. Results - Laboratory Findings CBC and BMP: 06/06/19 05:11 06/06/19 05:11 ABG ABG pH 7.50 (7.35-7.45) H 06/05/19 20:35 ABG pCO2 26 mmHg (35-45) L 06/05/19 20:35 ABG pO2 107 mmHg (83-108) 06/05/19 20:35 ABG O2 Saturation 98.5 % (94-97) H 06/05/19 20:35 PT/INR, D-dimer PT 19.6 sec (9.0-12.0) H 06/06/19 05:11 INR 2.0 (<1.2) H 06/06/19 05:11 D-Dimer 0.19 mg/L FEU (<0.60) 06/05/19 16:40 Abnormal lab findings: Abnormal Labs 06/05/19 06/05/19 06/05/19 16:40 16:40 17:21 WBC RDW Plt Count Neutrophils # Lymphocytes # PT 23.7 H INR 2.4 H APTT 31.6 H ABG pH ABG pCO2 ABG HCO3 ABG O2 Saturation Sodium 135 L Chloride 97 L Carbon Dioxide 21 L BUN 42 H Creatinine 2.12 H Glucose 129 H POC Glucose (mg/dL) Plasma Lactic Acid Dario Total Bilirubin 6.1 H Troponin I 0.052 H* Albumin 06/05/19 06/05/19 06/05/19 17:21 17:23 20:35 WBC 19.8 H RDW 15.6 H Plt Count 126 L Neutrophils # 18.2 H Lymphocytes # 0.6 L PT INR APTT ABG pH 7.50 H ABG pCO2 26 L ABG HCO3 20 L ABG O2 Saturation 98.5 H Sodium Chloride Carbon Dioxide BUN Creatinine Glucose POC Glucose (mg/dL) Plasma Lactic Acid Dario 4.4 H* Total Bilirubin Troponin I Albumin 06/05/19 06/05/19 06/06/19 21:28 23:57 01:54 WBC RDW Plt Count Neutrophils # Lymphocytes # PT INR APTT ABG pH ABG pCO2 ABG HCO3 ABG O2 Saturation Sodium Chloride Carbon Dioxide BUN Creatinine Glucose POC Glucose (mg/dL) 112 H Plasma Lactic Acid Dario 3.1 H* 2.4 H* Total Bilirubin Troponin I Albumin 06/06/19 06/06/19 06/06/19 05:11 05:11 05:11 WBC 14.3 H RDW 15.7 H Plt Count 93 L Neutrophils # 12.3 H Lymphocytes # 0.9 L PT 19.6 H INR 2.0 H APTT ABG pH ABG pCO2 ABG HCO3 ABG O2 Saturation Sodium 135 L Chloride Carbon Dioxide BUN 45 H Creatinine 2.00 H Glucose POC Glucose (mg/dL) Plasma Lactic Acid Dario Total Bilirubin 5.7 H Troponin I Albumin 3.4 L 06/06/19 05:11 WBC RDW Plt Count Neutrophils # Lymphocytes # PT INR APTT ABG pH ABG pCO2 ABG HCO3 ABG O2 Saturation Sodium Chloride Carbon Dioxide BUN Creatinine Glucose POC Glucose (mg/dL) Plasma Lactic Acid Dario Total Bilirubin Troponin I 0.080 H* Albumin - Diagnostic Findings Chest x-ray: report reviewed, image reviewed Assessment and Plan Plan: Assessment: #1. Acute hypoxemic respiratory failure related to acute exacerbation of systolic CHF, requiring BiPAP support, with pressures of 14/7, and FiO2 of 40% #2. Bilateral lower extremity cellulitis, left greater than right with extensive redness, swelling and tenderness involving lower extremities #3. Generalized macular rash, presumably to antibiotics, possibly cefepime and vancomycin #4. Leukocytosis #5. Anion gap metabolic acidosis with lactic acidosis of 4.4, multifactorial, related to acute CHF exacerbation, and possibility of sepsis #6. Acute on chronic kidney disease #7. Hypertension #8. Hyperlipidemia #9. Mild troponin leak #10. Coronary artery disease and ischemic cardiomyopathy with EF of less than 20% mild MR, mild TR, severe right ventricular and moderate left atrial enlargement and right-sided pressures of 42 mmHg #11. Previous history of myocardial infarction #12. Hypothyroidism #13. Morbid obesity #14. Chronic venous stasis and past history of cellulitis involving lower extremities #15. Never smoker Plan: Continue IV diuretics, consult ID service for antibiotic management as the patient is suspected to have an ALLERGIC reaction and rash to one of the antibiotics, he is currently on cefepime and vancomycin, continues on BiPAP support, he is in negative fluid balance, he was given IV fluids in the emergency department for lactic acidosis, his lactic acid is improving and is down to 2.4 today, hemodynamically patient is stable, no complaints of chest pain, echocardiogram is pending. Admission chest x-ray has been reviewed and showing interstitial face pulmonary edema, repeat chest x-ray today, accurate intake and output, daily labs, electrolytes and renal profile. No altered mentation, blood cultures are pending, urinalysis is pending, cardiology consultation. We'll continue to follow, patient will be monitored and in the intensive care unit. I performed a history & physical examination of the patient and discussed their management with my nurse practitioner, Winter Nelson. I reviewed the nurse practitioner's note and agree with the documented findings and plan of care. Lung sounds are positive for diminished breath sounds on the left. The findings and the impression was discussed with the patient. I attest to the documentation by the nurse practitioner. Time with Patient: Greater than 30
[2019-06-06] MEDS: METOPROLOL TARTRATE 25 MG TAB PO SCH ×3 (10:39→20:59)
[2019-06-06] MEDS: hydrALAZINE HCL 25 MG TAB PO SCH ×2 (10:39→21:24)
[2019-06-06] MEDS: ISOSORBIDE MONONITRATE ER 30 MG TAB.ER.24H PO SCH (10:39)
[2019-06-06] MEDS: LEVOTHYROXINE 25 MCG TAB PO SCH (10:52)
--- NOTE | 2019-06-06 11:18 | XR ---
EXAMINATION TYPE: XR chest 1V portable DATE OF EXAM: 06/06/2019 COMPARISON: Prior chest 06/05/2019 HISTORY: Pulmonary edema TECHNIQUE: Frontal view of the chest is obtained and 2 images. FINDINGS: The heart is enlarged. No evident pneumothorax or pleural effusion. Right costophrenic ang le was not included on the exam. Central vascularity is somewhat less conspicuous than on prior exam. There are overlying cardiac leads. Patient is rotated. IMPRESSION: Cardiomegaly. Improved central vascularity, improvement in volume status.
[2019-06-06 11:33] LABS: Appearance,Urine Clear (Clear); Bacteria,Urine Few /hpf; Bilirubin,Urine Negative (Negative); Blood,Urine Moderate (Negative); Color,Urine Yellow; Glucose,Urine (UA) Negative (Negative); Ketones,Urine Negative (Negative); Leukocyte Esterase,Urine Moderate (Negative); Mucus,Urine Occasional /hpf; Nitrite,Urine Negative (Negative); Protein,Urine Negative (Negative); RBC,Urine 22 /hpf (0-5); Specific Gravity,Urine 1.011 (1.001-1.035); Squamous Epithelial Cell,Urine <1 /hpf (0-4); Urobilinogen,Urine <2.0 mg/dL (<2.0); WBC,Urine 19 /hpf (0-5)
--- NOTE | 2019-06-06 11:38 | ECHOF ---
Referral Reason:chf MEASUREMENTS -------- HEIGHT: 175.3 cm WEIGHT: 149.7 kg BP: 99/66 RVIDd: 5.4 cm (< 3.3) IVSd: 1.4 cm (0.6 - 1.1) LVIDd: 6.1 cm (3.9 - 5.3) LVPWd: 1.9 cm (0.6 - 1.1) IVSs: 1.7 cm LVIDs: 5.2 cm LVPWs: 2.2 cm LAESV Index (A-L): 65.26 ml/m Ao Diam: 3.2 cm (2.0 - 3.7) AV Cusp: 2.3 cm (1.5 - 2.6) MV EXCURSION: 21.009 mm (> 18.000) MV EF SLOPE: 96 mm/s (70 - 150) EPSS: 2.6 cm AR PHT: 501 ms RAP: 5.00 mmHg RVSP: 28.79 mmHg FINDINGS -------- Sinus rhythm. This was a technically difficult study with suboptimal views. Morbid Obesity The left ventricle is mildly dilated. Left ventricular wall thickness is normal. There is severe global hypokinesis of LV . Overall left ventricular systolic function is severely impaired with, an EF between 20 - 25 %. Increased Lap Grade II Diastolic Dysfunction. The right ventricle is severely enlarged. LA is severely dilated >40 ml/m2 The right atrium was not well visualized. 5.0mg of Lumason was utilized for enhancement of images Interatrial and interventricular septum intact. The aortic valve was not well visualized. There is mild aortic regurgitation. There is no evidenc e of aortic stenosis. The mitral valve was not well visualized. Mild mitral regurgitation is present. Mild tricuspid regurgitation present. There is no evidence of pulmonary hypertension. The right v entricular systolic pressure, as measured by Doppler, is 28.79mmHg. Trace/mild (physiologic) pulmonic regurgitation. The aortic root size is normal. IVC Not well visulized. There is no pericardial effusion. CONCLUSIONS -------- 1. Sinus rhythm. 2. Morbid Obesity 3. The left ventricle is mildly dilated. 4. Left ventricular wall thickness is normal. 5. There is severe global hypokinesis of LV . 6. Overall left ventricular systolic function is severely impaired with, an EF between 20 - 25 %. 7. Increased Lap Grade II Diastolic Dysfunction. 8. The right ventricle is severely enlarged. 9. LA is severely dilated >40 ml/m2 10. The right atrium was not well visualized. 11. 5.0mg of Lumason was utilized for enhancement of images 12. Interatrial and interventricular septum intact. 13. The aortic valve was not well visualized. 14. There is mild aortic regurgitation. 15. There is no evidence of aortic stenosis. 16. The mitral valve was not well visualized. 17. Mild mitral regurgitation is present. 18. Mild tricuspid regurgitation present. 19. There is no evidence of pulmonary hypertension. 20. The right ventricular systolic pressure, as measured by Doppler, is 28.79mmHg. 21. Trace/mild (physiologic) pulmonic regurgitation. 22. The aortic root size is normal. 23. IVC Not well visulized. 24. There is no pericardial effusion. [employer]: Raquel Day RDCS
[2019-06-06] MEDS: FUROSEMIDE 100 MG in SODIUM CHLORIDE 0.9% 90 ML IV SCH ×2 (11:55→20:54)
[2019-06-06] MEDS ORDERED: ASPIRIN 325 MG TAB PO SCH (12:00)
[2019-06-06] MEDS ORDERED: VANCOMYCIN 2,250 MG in SODIUM CHLORIDE 0.9% 500 ML 500 ML IVPB SCH (12:00)
--- NOTE | 2019-06-06 12:14 | CONS ---
CONSULTATION Mr. López is a 63-year-old male with a history of chronic, persistent atrial fibrillation, chronic kidney disease, as well as left bundle branch block and severe impairment in left ventricular systolic function from prior admission in 2018 who presented to the hospital with symptoms of progressive dyspnea and peripheral edema. He was noted to be in atrial fibrillation with episodes of rapid ventricular response as well as progressive fatigue. He is being followed as an outpatient with Dr. Goodwin, and according to him has been compliant with his medications. He denies any chest pain. He denies any fever. He denies any dizziness or palpitations. He denies any nausea. The etiology of his cardiomyopathy is unclear, but it appears to be related to nonischemic cardiomyopathy. He has a cough, but no fever. He has redness in the legs and he had a prior history of cellulitis. He has no significant dizziness or palpitations and no syncope. His coronary risk factors are remarkable for history of hypertension. He is a nonsmoker, non-diabetic. MEDICATIONS: His medications at home include Coumadin, Aldactone 25 mg daily, midodrine 5 mg 3 times 3 times a day, metoprolol tartrate 50 mg twice a day, Lasix 40 mg daily, Zyloprim, Pepcid. REVIEW OF SYSTEMS: RESPIRATORY SYSTEM: He had dyspnea on exertion. He has no recent wheeze or cough. GI SYSTEM: He has no recent GI bleeding. No peptic ulcer disease. SYSTEM: No dysuria or hematuria. NERVOUS SYSTEM: No stroke or seizure. PHYSICAL EXAMINATION: He is a 63-year-old male, obese, on the Bi-PAP, in no apparent distress. Blood pressure running in the with the heart rate in the 90s. HEAD: Normocephalic. EYES: Sclerae anicteric. NECK: Unable to appreciate jugular venous pressure. LUNGS: Reveal crackles at the bases. HEART: Irregular, irregular, S1, S2; no S3, with systolic ejection murmur, 2/6, at the base. No diastolic murmur. No rub. ABDOMEN: Soft, obese, nontender. Positive bowel sounds. EXTREMITIES: With 3+ edema and erythema noted bilaterally with chronic skin changes. LAB DATA: Lab data revealed a hemoglobin of 15.6, white blood cells 19.8. His INR on admission was 2.4, and his BUN and creatinine were 42 and 2.12. His NT proBNP was 25,400. His troponin was 0.052 and 0.080. His EKG revealed atrial fibrillation with left bundle branch block. His chest x-ray is consistent with congestive heart failure and significant cardiomegaly. He underwent a foot x-ray with extensive foot and ankle soft-tissue swelling. IMPRESSION: 1. Exacerbation of congestive heart failure in a patient with known history of severe cardiomyopathy, probably nonischemic. 2. Probable cellulitis in the legs. 3. Chronic, persistent atrial fibrillation, anticoagulated. 4. Obesity and probable obstructive sleep apnea. 5. Chronic kidney disease. RECOMMENDATION: From the cardiac standpoint, I will initiate treatment with the oral beta robles. I will add hydralazine and isosorbide to his regimen and follow his renal function. At this time, we will hold the addition of an NURIS inhibitor. I will repeat his echocardiogram. Continue anticoagulation. The patient has been started on antibiotics for the cellulitis, and depending on his progress, further recommendations will be made. Thank you for this consult. We will follow with you. MMODL / IJN: [id number] /
--- NOTE | 2019-06-06 15:47 | P.HPIM ---
History of Present Illness H&P Date: 06/06/19 Chief Complaint: Short of breath Presenting complaint: Short of breath History of presenting complaint: This is a 63-year-old patient of Dr. Hall. Patient was in the hospital early January 2019. Patient admitted with a diagnosis of CHF EF of 20-25%, atrial flutter fibrillation, acute ischemic hepatitis from hypertension, and acute left lower extremity cellulitis. Also had acute renal failure. Patient now presents with worsening short of breath. [place] to be in CHF e xacerbation. Put on a Lasix drip. Patient has some chronic swelling of the left lower extremity. On BiPAP. Admitted to ICU. Rather tired to give any further history. Also redness of the left lower extremity. Some of which is known to be chronic. Started her antibiotics. Review of systems cannot be done as patient rather lethargic. Past medical history to include: CHF EF 20-25%, atrial flutter fibrillation, left bundle-branch block, morbid obesity, left lower external recent mellitus, hyperlipidemia, hypertension, chronic kidney disease stage III, bilateral lower extremity venous insufficiency Social history: This with a roommate. Retired. Does not smoke or drink alcohol. Physical examination: VITAL SIGNS: 98.5, 72, 22, blood pressure 83/38, 95% on room air upon presentation] GENERAL: BMI 40.7, laying in bed tired on a BiPAP. EYES: Pupils equal. Conjunctiva normal. HEENT: External appearance of nose and ears normal, oral cavity grossly normal. NECK: JVD unable to assess; masses not palpable. HEART: Heart sounds regular; edema present. LUNGS: Respiratory rate increased, diminished breath sounds bilaterally speak in full sentences. ABDOMEN: Soft, nontender, liver spleen not palpable, no masses palpable. PSYCH: [Unable to assess patient rather lethargic l. NEUROLOGICAL: [Cranial nerves grossly intact; no facial asymmetry, moving all his limbs EXTREMITIES: Left leg is enlarged compared to the right with some redness swelling from below the knee going down to the foot LYMPHATICS: No lymph nodes palpable in the axilla and neck INVESTIGATIONS, reviewed in the clinical context: White count 19.8 hemoglobin 13.6 platelets 126 Sodium 135 potassium 4.9 bun 42 creatinine 2.12 EKG tracing personally reviewed by me-left bundle-branch block possible atrial fibrillation Chest x-ray film personally reviewed by me-cardiomegaly with venous prominence Troponin I 0.052, 0.080 Assessment: -Acute on chronic congestive heart failure exacerbation from diastolic and s ystolic dysfunction EF 20-25%, decompensated, -Persistent atrial fibrillation/flutter, uncontrolled presentation -Left bundle-branch block -Morbid obesity BMI 52.3 -Acute left lower extremity cellulitis -Hyperlipidemia -Essential hypertension -Chronic kidney disease stage III from nephrosclerosis at her baseline -Acute kidney injury, likely prerenal from cardiorenal syndrome, -Bilateral lower extremity venous insufficiency and chronic venous stasis -Troponin leak from chronic kidney disease, no evidence of acute coronary syndrome -Coumadin monitoring -Hypothyroid Plan: Patient is in the ICU. On IV Lasix drip. Strict I's and O's. Patient's IV clindamycin. Consultations made to cardiology, pulmonary. Also nephrology. We will DC vancomycin the setting of renal failure. Also the ID opinion. Meantime will order Silvadene with Kerlix and Hermes wrap. Past Medical History Past Medical History: Atrial Fibrillation, Coronary Artery Disease (CAD), Cancer, Heart Failure, Hyperlipidemia, Hypertension, Myocardial Infarction (HI), Pneumonia, Renal Disease, Thyroid Disorder Additional Past Medical History / Comment(s): Bronchitis, possible HI per EKG, hypothyroid, CKD stage III, bilateral lower extremity venous insufficien cy/chronic venous stasis/past cellulitis bilateral lower legs, skin cancer with removals. Last Myocardial Infarction Date:: unkn History of Any Multi-Drug Resistant Organisms: None Reported Past Surgical History: Adenoidectomy, Tonsillectomy Additional Past Surgical History / Comment(s): Bilateral cataract removals/lens implants, skin cancer removals L hand/L shoulder/L ear, midline IV-since remov ed. Past Anesthesia/Blood Transfusion Reactions: No Reported Reaction Past Psychological History: No Psychological Hx Reported Additional Psychological History / Comment(s): Pt resides with a roomate. He is retired. He uses no assistive device. He drives. Smoking Status: Never smoker Past Alcohol Use History: None Reported Past Drug Use History: None Reported - Past Family History Father Family Medical History: CVA/TIA Additional Family Medical History / Comment(s): Father at the age of 90yrs. Mother Family Medical History: Cancer Additional Family Medical History / Comment(s): Mother from cancer (unknown type) at age 80s Medications and Allergies Home Medications Medication Instructions Recorded Confirmed Type Potassium Chloride ER [K-Dur 20] 20 meq PO DAILY 04/17/17 06/06/19 History Furosemide [Lasix] 40 mg PO DAILY #0 04/20/17 06/06/19 Rx Spironolactone [Aldactone] 25 mg PO DAILY #30 tab 03/08/18 06/06/19 Rx Levothyroxine Sodium [Synthroid] 25 mcg PO MOWEFR 01/21/19 06/06/19 History Metoprolol Tartrate [Lopressor] 50 mg PO BID 01/21/19 06/06/19 History Allopurinol [Zyloprim] 100 mg PO DAILY #1 tablet 01/31/19 06/06/19 Rx Famotidine [Pepcid] 20 mg PO BID #1 tablet 01/31/19 06/06/19 Rx Midodrine [ProAmatine] 5 mg PO AC-TID #30 tab 01/31/19 06/06/19 Rx Warfarin Sodium 5 mg PO SUMOTUWETHSA 06/05/19 06/05/19 History Warfarin Sodium [Coumadin] 7.5 mg PO FR 06/05/19 06/05/19 History Levothyroxine Sodium [Synthroid] 50 mcg PO SUTUTHSA 06/06/19 06/06/19 History Allergies Allergy/AdvReac Type Severity Reaction Status Date / Time ampicillin [From Unasyn] Allergy Rash/Hives Verified 06/06/19 10:09 sulbactam [From Unasyn] Allergy Rash/Hives Verified 06/06/19 10:09 Physical Exam Vitals: Vital Signs Temp Pulse Pulse Resp BP BP Pulse Ox 06/06/19 10:00 84 14 109/66 96 06/06/19 09:00 86 16 84/66 97 06/06/19 08:00 97.4 F L 90 14 104/75 96 06/06/19 07:00 81 15 06/06/19 06:00 90 18 92/45 97 06/06/19 05:00 114 H 19 129/56 06/06/19 04:00 93 17 136/104 06/06/19 03:00 93 15 06/06/19 02:00 100 21 99 06/06/19 01:18 120 H 24 96 06/05/19 23:50 98.5 F 141 H 35 H 124/75 92 L 06/05/19 23:00 98.1 F 121 H 32 H 121/80 92 L 06/05/19 22:30 123 H 26 H 110/79 92 L 06/05/19 22:15 116 H 26 H 93/74 92 L 06/05/19 22:00 142 H 22 97/85 94 L 06/05/19 21:54 126 H 26 H 97/85 92 L 06/05/19 21:30 123 H 26 H 109/70 92 L 06/05/19 21:00 124 H 31 H 115/65 98 06/05/19 20:20 72 27 H 104/39 92 L 06/05/19 19:40 55 L 28 H 98/79 92 L 06/05/19 18:50 72 26 H 109/89 94 L 06/05/19 16:35 108/83 06/05/19 16:24 98.5 F 72 22 83/38 95 Intake and Output 06/05/19 06/06/19 06/06/19 22:59 06:59 14:59 Intake Total 500 Output Total 335 725 Balance 165 -725 Intake: IV 500 Vancomycin 2,500 mg In 500 Sodium Chloride 0.9% 500 ml 500 ml @ 167 mls/hr IVPB ONCE STA Rx#: [id number] Output: Urine 335 725 Other: Voiding Method Indwelling Catheter Weight 149.685 kg 149.685 kg Results CBC & Chem 7: 06/06/19 05:11 06/06/19 05:11 Labs: Abnormal Lab Results - Last 24 Hours (Table) 06/05/19 06/05/19 06/05/19 Range/Units 16:40 16:40 17:21 WBC (3.8-10.6) k/uL RDW (11.5-15.5) % Plt Count (150-450) k/uL Neutrophils # (1.3-7.7) k/uL Lymphocytes # (1.0-4.8) k/uL PT 23.7 H (9.0-12.0) sec INR 2.4 H (<1.2) APTT 31.6 H (22.0-30.0) sec ABG pH (7.35-7.45) ABG pCO2 (35-45) mmHg ABG HCO3 (21-25) mmol/L ABG O2 Saturation (94-97) % Sodium 135 L (137-145) mmol/L Chloride 97 L (98-107) mmol/L Carbon Dioxide 21 L (22-30) mmol/L BUN 42 H (9-20) mg/dL Creatinine 2.12 H (0.66-1.25) mg/dL Glucose 129 H (74-99) mg/dL POC Glucose (mg/dL) (75-99) mg/dL Plasma Lactic Acid Dario (0.7-2.0) mmol/L Total Bilirubin 6.1 H (0.2-1.3) mg/dL Troponin I 0.052 H* (0.000-0.034) ng/mL Albumin (3.5-5.0) g/dL 06/05/19 06/05/19 06/05/19 Range/Units 17:21 17:23 20:35 WBC 19.8 H (3.8-10.6) k/uL RDW 15.6 H (11.5-15.5) % Plt Count 126 L (150-450) k/uL Neutrophils # 18.2 H (1.3-7.7) k/uL Lymphocytes # 0.6 L (1.0-4.8) k/uL PT (9.0-12.0) sec INR (<1.2) APTT (22.0-30.0) sec ABG pH 7.50 H (7.35-7.45) ABG pCO2 26 L (35-45) mmHg ABG HCO3 20 L (21-25) mmol/L ABG O2 Saturation 98.5 H (94-97) % Sodium (137-145) mmol/L Chloride (98-107) mmol/L Carbon Dioxide (22-30) mmol/L BUN (9-20) mg/dL Creatinine (0.66-1.25) mg/dL Glucose (74-99) mg/dL POC Glucose (mg/dL) (75-99) mg/dL Plasma Lactic Acid Dario 4.4 H* (0.7-2.0) mmol/L Total Bilirubin (0.2-1.3) mg/dL Troponin I (0.000-0.034) ng/mL Albumin (3.5-5.0) g/dL 06/05/19 06/05/19 06/06/19 Range/Units 21:28 23:57 01:54 WBC (3.8-10.6) k/uL RDW (11.5-15.5) % Plt Count (150-450) k/uL Neutrophils # (1.3-7.7) k/uL Lymphocytes # (1.0-4.8) k/uL PT (9.0-12.0) sec INR (<1.2) APTT (22.0-30.0) sec ABG pH (7.35-7.45) ABG pCO2 (35-45) mmHg ABG HCO3 (21-25) mmol/L ABG O2 Saturation (94-97) % Sodium (137-145) mmol/L Chloride (98-107) mmol/L Carbon Dioxide (22-30) mmol/L BUN (9-20) mg/dL Creatinine (0.66-1.25) mg/dL Glucose (74-99) mg/dL POC Glucose (mg/dL) 112 H (75-99) mg/dL Plasma Lactic Acid Dario 3.1 H* 2.4 H* (0.7-2.0) mmol/L Total Bilirubin (0.2-1.3) mg/dL Troponin I (0.000-0.034) ng/mL Albumin (3.5-5.0) g/dL 06/06/19 06/06/19 06/06/19 Range/Units 05:11 05:11 05:11 WBC 14.3 H (3.8-10.6) k/uL RDW 15.7 H (11.5-15.5) % Plt Count 93 L (150-450) k/uL Neutrophils # 12.3 H (1.3-7.7) k/uL Lymphocytes # 0.9 L (1.0-4.8) k/uL PT 19.6 H (9.0-12.0) sec INR 2.0 H (<1.2) APTT (22.0-30.0) sec ABG pH (7.35-7.45) ABG pCO2 (35-45) mmHg ABG HCO3 (21-25) mmol/L ABG O2 Saturation (94-97) % Sodium 135 L (137-145) mmol/L Chloride (98-107) mmol/L Carbon Dioxide (22-30) mmol/L BUN 45 H (9-20) mg/dL Creatinine 2.00 H (0.66-1.25) mg/dL Glucose (74-99) mg/dL POC Glucose (mg/dL) (75-99) mg/dL Plasma Lactic Acid Dario (0.7-2.0) mmol/L Total Bilirubin 5.7 H (0.2-1.3) mg/dL Troponin I (0.000-0.034) ng/mL Albumin 3.4 L (3.5-5.0) g/dL 06/06/19 Range/Units 05:11 WBC (3.8-10.6) k/uL RDW (11.5-15.5) % Plt Count (150-450) k/uL Neutrophils # (1.3-7.7) k/uL Lymphocytes # (1.0-4.8) k/uL PT (9.0-12.0) sec INR (<1.2) APTT (22.0-30.0) sec ABG pH (7.35-7.45) ABG pCO2 (35-45) mmHg ABG HCO3 (21-25) mmol/L ABG O2 Saturation (94-97) % Sodium (137-145) mmol/L Chloride (98-107) mmol/L Carbon Dioxide (22-30) mmol/L BUN (9-20) mg/dL Creatinine (0.66-1.25) mg/dL Glucose (74-99) mg/dL POC Glucose (mg/dL) (75-99) mg/dL Plasma Lactic Acid Dario (0.7-2.0) mmol/L Total Bilirubin (0.2-1.3) mg/dL Troponin I 0.080 H* (0.000-0.034) ng/mL Albumin (3.5-5.0) g/dL Thrombosis Risk Factor Assmnt - Choose All That Apply Any of the Below Risk Factors Present?: Yes Each Factor Represents 1 point: Heart failure (<1month), Obesity (BMI >25), Serious lung disease incl. pneumonia (< 1month), Swollen legs (current) Each Risk Factor Represents 2 Points: Age 61-74 years, Patient confined to bed Thrombosis Risk Factor Assessment Total Risk Factor Score: 8 Thrombosis Risk Factor Assessment Level: High Risk
[2019-06-06] MEDS: CLINDAMYCIN 600 MG in DEXTROSE 5% IN WATER 50 ML IVPB SCH ×2 (16:58)
[2019-06-06] MEDS ORDERED: WARFARIN 7.5 MG TAB PO ONE (18:00)
--- NOTE | 2019-06-06 23:21 | P.CONS ---
History of Present Illness - Reason for Consult Consult date: 06/06/19 left leg cellulitis Requesting physician: Carter Marte - Chief Complaint shortness of breath and leg swelling x days - History of Present Illness Patient is a 63-year-old male presenting to the ER at [facility] yesterday afternoon with chief complaints of increasing shortness of breath the patient breathing has been getting worse for the last few days patient denies having any chest pain or cough patient also did have significant swelling in his lower extremity with the left leg becoming more swollen and red patient did have some dull aching pain to the leg intensity about 3-4 out of 10 and with no radiation patient currently with open blister on the plantar wound with the symptom the patient presented to the hospital on arrival to the ER the patient has been afebrile patient did have a white count of 19.8 kidney function worse mildly elevated urine has been positive as well patient was started on vancomycin has been admitted to ICU infectious was consulted for further recommendation of antibiotic therapy patient chest x-ray has been reported interstitial pulmonary edema x-rays of the foot do show soft tissue swelling but no bony changes of osteomyelitis. Review of Systems Positive point has been mentioned in HPI rest of the systems are negative Past Medical History Past Medical History: Atrial Fibrillation, Coronary Artery Disease (CAD), Cancer, Heart Failure, Hyperlipidemia, Hypertension, Myocardial Infarction (PA), Pneumonia, Renal Disease, Thyroid Disorder Additional Past Medical History / Comment(s): Bronchitis, possible PA per EKG, hypothyroid, CKD stage III, bilateral lower extremity venous insufficiency/chronic venous stasis/past cellulitis bilateral lower legs, skin cancer with removals. Last Myocardial Infarction Date:: unkn History of Any Multi-Drug Resistant Organisms: None Reported Past Surgical History: Adenoidectomy, Tonsillectomy Additional Past Surgical History / Comment(s): Bilateral cataract removals/lens implants, skin cancer removals L hand/L shoulder/L ear, midline IV-since removed. Past Anesthesia/Blood Transfusion Reactions: No Reported Reaction Past Psychological History: No Psychological Hx Reported Additional Psychological History / Comment(s): Pt resides with a roomate. He is retired. He uses no assistive device. He drives. Smoking Status: Never smoker Past Alcohol Use History: None Reported Past Drug Use History: None Reported - Past Family History Father Family Medical History: CVA/TIA Additional Family Medical History / Comment(s): Father at the age of 90yrs. Mother Family Medical History: Cancer Additional Family Medical History / Comment(s): Mother from cancer (unknown type) at age 80s Medications and Allergies Home Medications Medication Instructions Recorded Confirmed Type Potassium Chloride ER [K-Dur 20] 20 meq PO DAILY 04/17/17 06/06/19 History Furosemide [Lasix] 40 mg PO DAILY #0 04/20/17 06/06/19 Rx Spironolactone [Aldactone] 25 mg PO DAILY #30 tab 03/08/18 06/06/19 Rx Levothyroxine Sodium [Synthroid] 25 mcg PO MOWEFR 01/21/19 06/06/19 History Metoprolol Tartrate [Lopressor] 50 mg PO BID 01/21/19 06/06/19 History Allopurinol [Zyloprim] 100 mg PO DAILY #1 tablet 01/31/19 06/06/19 Rx Famotidine [Pepcid] 20 mg PO BID #1 tablet 01/31/19 06/06/19 Rx Midodrine [ProAmatine] 5 mg PO AC-TID #30 tab 01/31/19 06/06/19 Rx Warfarin Sodium 5 mg PO SUMOTUWETHSA 06/05/19 06/05/19 History Warfarin Sodium [Coumadin] 7.5 mg PO FR 06/05/19 06/05/19 History Levothyroxine Sodium [Synthroid] 50 mcg PO SUTUTHSA 06/06/19 06/06/19 History Allergies Allergy/AdvReac Type Severity Reaction Status Date / Time ampicillin [From Unasyn] Allergy Rash/Hives Verified 06/06/19 10:09 sulbactam [From Unasyn] Allergy Rash/Hives Verified 06/06/19 10:09 Physical Exam Vitals: Vital Signs Temp Pulse Pulse Resp BP BP Pulse Ox 06/06/19 11:00 101 H 20 92/73 93 L 06/06/19 10:00 84 14 109/66 96 06/06/19 09:00 86 16 84/66 97 06/06/19 08:00 97.4 F L 90 14 104/75 96 06/06/19 07:00 81 15 06/06/19 06:00 90 18 92/45 97 03/13/20 05:00 114 H 19 129/56 06/06/19 04:00 93 17 136/104 06/06/19 03:00 93 15 06/06/19 02:00 100 21 99 06/06/19 01:18 120 H 24 96 06/05/19 23:50 98.5 F 141 H 35 H 124/75 92 L 06/05/19 23:00 98.1 F 121 H 32 H 121/80 92 L 06/05/19 22:30 123 H 26 H 110/79 92 L 06/05/19 22:15 116 H 26 H 93/74 92 L 06/05/19 22:00 142 H 22 97/85 94 L 06/05/19 21:54 126 H 26 H 97/85 92 L 06/05/19 21:30 123 H 26 H 109/70 92 L 06/05/19 21:00 124 H 31 H 115/65 98 06/05/19 20:20 72 27 H 104/39 92 L 06/05/19 19:40 55 L 28 H 98/79 92 L 06/05/19 18:50 72 26 H 109/89 94 L 06/05/19 16:35 108/83 06/05/19 16:24 98.5 F 72 22 83/38 95 Intake and Output 06/05/19 06/06/19 06/06/19 22:59 06:59 14:59 Intake Total 500 Output Total 335 725 Balance 165 -725 Intake: IV 500 Vancomycin 2,500 mg In 500 Sodium Chloride 0.9% 500 ml 500 ml @ 167 mls/hr IVPB ONCE STA Rx#: [id number] Output: Urine 335 725 Other: Voiding Method Indwelling Catheter Weight 149.685 kg 149.685 kg GENERAL DESCRIPTION: Middle-aged male lying in bed, no distress. No tachypnea or accessory muscle of respiration use. HEENT: Shows Pallor , no scleral icterus. Oral mucous membrane is dry. NECK: Trachea central, no thyromegaly. LUNGS: Unlabored breathing. Decreased breath sound at bases. No wheeze or crackle. HEART: S1, S2, regular rate and rhythm. ABDOMEN: Soft, no tenderness , guarding or rigidity EXTREMITIES: Patient did have evidence of athlete's foot in between the toes diffuse swelling of both lower extremities left leg is more swollen and red. SKIN: No rash, no masses palpable. NEUROLOGICAL: The patient is lethargic but arousable answer question, mood and affect is normal Results CBC & Chem 7: 06/06/19 05:11 06/06/19 05:11 Labs: Abnormal Lab Results - Last 24 Hours (Table) 06/05/19 06/05/19 06/05/19 Range/Units 16:40 16:40 17:21 WBC (3.8-10.6) k/uL RDW (11.5-15.5) % Plt Count (150-450) k/uL Neutrophils # (1.3-7.7) k/uL Lymphocytes # (1.0-4.8) k/uL PT 23.7 H (9.0-12.0) sec INR 2.4 H (<1.2) APTT 31.6 H (22.0-30.0) sec ABG pH (7.35-7.45) ABG pCO2 (35-45) mmHg ABG HCO3 (21-25) mmol/L ABG O2 Saturation (94-97) % Sodium 135 L (137-145) mmol/L Chloride 97 L (98-107) mmol/L Carbon Dioxide 21 L (22-30) mmol/L BUN 42 H (9-20) mg/dL Creatinine 2.12 H (0.66-1.25) mg/dL Glucose 129 H (74-99) mg/dL POC Glucose (mg/dL) (75-99) mg/dL Plasma Lactic Acid Dario (0.7-2.0) mmol/L Total Bilirubin 6.1 H (0.2-1.3) mg/dL Troponin I 0.052 H* (0.000-0.034) ng/mL Albumin (3.5-5.0) g/dL Urine Blood (Negative) Ur Leukocyte Esterase (Negative) Urine RBC (0-5) /hpf Urine WBC (0-5) /hpf Urine Bacteria (None) /hpf Urine Mucus (None) /hpf 06/05/19 06/05/19 06/05/19 Range/Units 17:21 17:23 20:35 WBC 19.8 H (3.8-10.6) k/uL RDW 15.6 H (11.5-15.5) % Plt Count 126 L (150-450) k/uL Neutrophils # 18.2 H (1.3-7.7) k/uL Lymphocytes # 0.6 L (1.0-4.8) k/uL PT (9.0-12.0) sec INR (<1.2) APTT (22.0-30.0) sec ABG pH 7.50 H (7.35-7.45) ABG pCO2 26 L (35-45) mmHg ABG HCO3 20 L (21-25) mmol/L ABG O2 Saturation 98.5 H (94-97) % Sodium (137-145) mmol/L Chloride (98-107) mmol/L Carbon Dioxide (22-30) mmol/L BUN (9-20) mg/dL Creatinine (0.66-1.25) mg/dL Glucose (74-99) mg/dL POC Glucose (mg/dL) (75-99) mg/dL Plasma Lactic Acid Dario 4.4 H* (0.7-2.0) mmol/L Total Bilirubin (0.2-1.3) mg/dL Troponin I (0.000-0.034) ng/mL Albumin (3.5-5.0) g/dL Urine Blood (Negative) Ur Leukocyte Esterase (Negative) Urine RBC (0-5) /hpf Urine WBC (0-5) /hpf Urine Bacteria (None) /hpf Urine Mucus (None) /hpf 06/05/19 06/05/19 06/06/19 Range/Units 21:28 23:57 01:54 WBC (3.8-10.6) k/uL RDW (11.5-15.5) % Plt Count (150-450) k/uL Neutrophils # (1.3-7.7) k/uL Lymphocytes # (1.0-4.8) k/uL PT (9.0-12.0) sec INR (<1.2) APTT (22.0-30.0) sec ABG pH (7.35-7.45) ABG pCO2 (35-45) mmHg ABG HCO3 (21-25) mmol/L ABG O2 Saturation (94-97) % Sodium (137-145) mmol/L Chloride (98-107) mmol/L Carbon Dioxide (22-30) mmol/L BUN (9-20) mg/dL Creatinine (0.66-1.25) mg/dL Glucose (74-99) mg/dL POC Glucose (mg/dL) 112 H (75-99) mg/dL Plasma Lactic Acid Dario 3.1 H* 2.4 H* (0.7-2.0) mmol/L Total Bilirubin (0.2-1.3) mg/dL Troponin I (0.000-0.034) ng/mL Albumin (3.5-5.0) g/dL Urine Blood (Negative) Ur Leukocyte Esterase (Negative) Urine RBC (0-5) /hpf Urine WBC (0-5) /hpf Urine Bacteria (None) /hpf Urine Mucus (None) /hpf 06/06/19 06/06/19 06/06/19 Range/Units 05:11 05:11 05:11 WBC 14.3 H (3.8-10.6) k/uL RDW 15.7 H (11.5-15.5) % Plt Count 93 L (150-450) k/uL Neutrophils # 12.3 H (1.3-7.7) k/uL Lymphocytes # 0.9 L (1.0-4.8) k/uL PT 19.6 H (9.0-12.0) sec INR 2.0 H (<1.2) APTT (22.0-30.0) sec ABG pH (7.35-7.45) ABG pCO2 (35-45) mmHg ABG HCO3 (21-25) mmol/L ABG O2 Saturation (94-97) % Sodium 135 L (137-145) mmol/L Chloride (98-107) mmol/L Carbon Dioxide (22-30) mmol/L BUN 45 H (9-20) mg/dL Creatinine 2.00 H (0.66-1.25) mg/dL Glucose (74-99) mg/dL POC Glucose (mg/dL) (75-99) mg/dL Plasma Lactic Acid Dario (0.7-2.0) mmol/L Total Bilirubin 5.7 H (0.2-1.3) mg/dL Troponin I (0.000-0.034) ng/mL Albumin 3.4 L (3.5-5.0) g/dL Urine Blood (Negative) Ur Leukocyte Esterase (Negative) Urine RBC (0-5) /hpf Urine WBC (0-5) /hpf Urine Bacteria (None) /hpf Urine Mucus (None) /hpf 06/06/19 06/06/19 Range/Units 05:11 10:35 WBC (3.8-10.6) k/uL RDW (11.5-15.5) % Plt Count (150-450) k/uL Neutrophils # (1.3-7.7) k/uL Lymphocytes # (1.0-4.8) k/uL PT (9.0-12.0) sec INR (<1.2) APTT (22.0-30.0) sec ABG pH (7.35-7.45) ABG pCO2 (35-45) mmHg ABG HCO3 (21-25) mmol/L ABG O2 Saturation (94-97) % Sodium (137-145) mmol/L Chloride (98-107) mmol/L Carbon Dioxide (22-30) mmol/L BUN (9-20) mg/dL Creatinine (0.66-1.25) mg/dL Glucose (74-99) mg/dL POC Glucose (mg/dL) (75-99) mg/dL Plasma Lactic Acid Dario (0.7-2.0) mmol/L Total Bilirubin (0.2-1.3) mg/dL Troponin I 0.080 H* (0.000-0.034) ng/mL Albumin (3.5-5.0) g/dL Urine Blood Moderate H (Negative) Ur Leukocyte Esterase Moderate H (Negative) Urine RBC 22 H (0-5) /hpf Urine WBC 19 H (0-5) /hpf Urine Bacteria Few H (None) /hpf Urine Mucus Occasional H (None) /hpf Assessment and Plan Assessment: 1-patient with extensive left lower extremity cellulitis in this patient who did have diffuse swelling redness and evidence of fluid overload heart failure like ly streptococcal cellulitis 2-athlete's foot 3-Penicillin allergy that would limit of antibiotics safe to use 4- Borderline kidney function high risk of nephrotoxicity from vancomycin (1) Cellulitis of left leg Current Visit: No Status: Acute Code(s): L03.116 - CELLULITIS OF LEFT LOWER LIMB SNOMED Code(s): 128132737 Plan: 1-discontinue vancomycin 2-cefazolin 2 g every 8 hour 3- Miconazole powder in between toes twice a day 4-Hermes wrap to the leg from just above the toe to below the knee 5-marked the area of the redness We will follow on clinical condition and cultures to further adjust medication if needed Thank you for this consultation we will follow the patient along with you Time with Patient: Greater than 30
[2019-06-07] MEDS: CLINDAMYCIN 600 MG in DEXTROSE 5% IN WATER 50 ML IVPB SCH ×4 (00:06→08:57)
[2019-06-07 05:35] LABS: Prothrombin Time 19.4 sec (9.0-12.0)
[2019-06-07 05:36] LABS: HCT 40.7 % (39.0-53.0); HGB 13.2 gm/dL (13.0-17.5); MCH 30.3 pg (25.0-35.0); MCHC 32.5 g/dL (31.0-37.0); MCV 93.4 fL (80.0-100.0); Mean Platelet Volume 14.9; Platelet Count 102 k/uL (150-450); RBC 4.35 m/uL (4.30-5.90); RDW 15.7 % (11.5-15.5); WBC 10.2 k/uL (3.8-10.6)
[2019-06-07 05:45] LABS: Albumin 2.9 g/dL (3.5-5.0); Calcium 8.8 mg/dL (8.4-10.2); Potassium 4.2 mmol/L (3.5-5.1); Total Bilirubin 4.6 mg/dL (0.2-1.3); Total Protein 5.7 g/dL (6.3-8.2)
[2019-06-07 06:05] LABS: Lymphocytes # (M) 0.41 k/uL (1.0-4.8); Monocytes # (M) 0.92 k/uL (0-1.0); Neutrophils # (M) 8.87 k/uL (1.3-7.7); Neutrophils % (M) 87 %; Nucleated Red Blood Cells 0 /100 WBC (0-0); Total Cells Counted 100
[2019-06-07 06:06] LABS: Large Platelets Present; Polychromasia Present
[2019-06-07] MEDS: FUROSEMIDE 100 MG in SODIUM CHLORIDE 0.9% 90 ML IV SCH (06:41)
[2019-06-07] MEDS: LEVOTHYROXINE 25 MCG TAB PO SCH (06:42)
--- NOTE | 2019-06-07 08:24 | XR ---
EXAMINATION TYPE: XR chest 1V portable DATE OF EXAM: 06/07/2019 COMPARISON: 06/06/2019 HISTORY: Pulmonary edema and shortness of breath TECHNIQUE: Single frontal view of the chest is obtained. FINDINGS: Cardia mediastinal silhouette is again enlarged. Minimally improved moderate pulmonary vas cular congestion is seen throughout. Left costophrenic angle is not visualized and cannot be evaluate d. No right-sided pleural effusion seen. Patient's chin obscures the lung apices. No new focal consol idation identified. Osseous structures are grossly intact. IMPRESSION: Minimally improved diffuse moderate pulmonary vascular congestion. In combination with t he enlarged cardiac mediastinal silhouette congestive heart failure is likely.
[2019-06-07] MEDS: ISOSORBIDE MONONITRATE ER 30 MG TAB.ER.24H PO SCH (09:00)
[2019-06-07] MEDS: hydrALAZINE HCL 25 MG TAB PO SCH (09:00)
[2019-06-07] MEDS: NYSTATIN 100,000 UNIT/GM POWD 15 GM TOPICAL SCH ×2 (09:01→20:06)
[2019-06-07] MEDS: METOPROLOL TARTRATE 25 MG TAB PO SCH ×2 (09:02→09:14)
[2019-06-07] MEDS ORDERED: DEXTROSE 5% IN WATER 100 ML with AMIODARONE 150 MG IV ONE (09:12)
[2019-06-07] MEDS ORDERED: AMIODARONE 360 MG in DEXTROSE 5% IN WATER 200 ML IV ONE ×2 (09:12)
--- NOTE | 2019-06-07 11:53 | PN ---
PROGRESS NOTE This patient has a history of cardiomyopathy, admitted with a congestive cardiac failure and cellulitis. The patient has an in and out of atrial fibrillation. Currently patient is in atrial fibrillation with rapid ventricular response. Patient's blood pressure is 80/60 mmHg. First and second heart sounds are normal. Lungs examination revealed bilateral scattered wheezes. Chest x-ray shows diffuse moderate pulmonary vascular congestion. PLAN: We will start the patient on amiodarone drip to control the rate. If the patient remains hypotensive, patient will need to start on the Levophed and may need a central line. MMODL / IJN: [id number] /
[2019-06-07] MEDS ORDERED: ALPRAZolam 0.25 MG TAB PO PRN (12:07)
--- NOTE | 2019-06-07 12:31 | P.NPCON ---
History of Present Illness - Reason for Consult acute renal failure - Chief Complaint Congestive heart failure and acute kidney injury - History of Present Illness This is a 63-year-old male seen in consultation because of acute kidney injury and chronic kidney disease. He came in because of shortness of breath, congestive heart failure, ejection fraction of 20-25%, chronic atrial fibrillation. There is some questionable history of coronary artery disease. He does complain of pain in his lower legs and some redness. Also has severe itching on the back since December 2018 6 months ago and he was admitted here. He denies taking any nonsteroidals or antibiotics at home No changes in medication No fever chills. No problem with his urine. He has currently a Sims catheter Past Medical History Past Medical History: Atrial Fibrillation, Coronary Artery Disease (CAD), Cancer, Heart Failure, Hyperlipidemia, Hypertension, Myocardial Infarction (IN), Pneumonia, Renal Disease, Thyroid Disorder Additional Past Medical History / Comment(s): Bronchitis, possible IN per EKG, hypothyroid, CKD stage III, bilateral lower extremity venous insufficiency/chronic venous stasis/past cellulitis bilateral lower legs, skin cancer with removals. Last Myocardial Infarction Date:: unkn History of Any Multi-Drug Resistant Organisms: None Reported Past Surgical History: Adenoidectomy, Tonsillectomy Additional Past Surgical History / Comment(s): Bilateral cataract removals/lens implants, skin cancer removals L hand/L shoulder/L ear, midline IV-since removed. Past Anesthesia/Blood Transfusion Reactions: No Reported Reaction Past Psychological History: No Psychological Hx Reported Additional Psychological History / Comment(s): Pt resides with a roomate. He is retired. He uses no assistive device. He drives. Smoking Status: Never smoker Past Alcohol Use History: None Reported Past Drug Use History: None Reported - Past Family History Father Family Medical History: CVA/TIA Additional Family Medical History / Comment(s): Father at the age of 90yrs. Mother Family Medical History: Cancer Additional Family Medical History / Comment(s): Mother from cancer (unknown type) at age 80s Medications and Allergies Home Medications Medication Instructions Recorded Confirmed Type Potassium Chloride ER [K-Dur 20] 20 meq PO DAILY 04/17/17 06/06/19 History Furosemide [Lasix] 40 mg PO DAILY #0 04/20/17 06/06/19 Rx Spironolactone [Aldactone] 25 mg PO DAILY #30 tab 03/08/18 06/06/19 Rx Levothyroxine Sodium [Synthroid] 25 mcg PO MOWEFR 01/21/19 06/06/19 History Metoprolol Tartrate [Lopressor] 50 mg PO BID 01/21/19 06/06/19 History Allopurinol [Zyloprim] 100 mg PO DAILY #1 tablet 01/31/19 06/06/19 Rx Famotidine [Pepcid] 20 mg PO BID #1 tablet 01/31/19 06/06/19 Rx Midodrine [ProAmatine] 5 mg PO AC-TID #30 tab 01/31/19 06/06/19 Rx Warfarin Sodium 5 mg PO SUMOTUWETHSA 06/05/19 06/05/19 History Warfarin Sodium [Coumadin] 7.5 mg PO FR 06/05/19 06/05/19 History Levothyroxine Sodium [Synthroid] 50 mcg PO SUTUTHSA 06/06/19 06/06/19 History Allergies Allergy/AdvReac Type Severity Reaction Status Date / Time ampicillin [From Unasyn] Allergy Rash/Hives Verified 06/06/19 10:09 sulbactam [From Unasyn] Allergy Rash/Hives Verified 06/06/19 10:09 Physical Exam Vitals: Vital Signs Temp Pulse Resp BP Pulse Ox 06/07/19 12:08 96 06/07/19 11:30 97 20 91/69 96 06/07/19 11:15 110 H 19 114/44 96 06/07/19 11:00 112 H 19 117/97 96 06/07/19 10:45 123 H 19 80/60 96 06/07/19 10:30 142 H 22 94/40 96 06/07/19 10:15 113 H 19 94/40 97 06/07/19 10:00 107 H 16 102/85 95 06/07/19 09:45 106 H 16 102/85 95 06/07/19 09:30 121 H 10 L 81/44 96 06/07/19 09:15 115 H 17 81/44 96 06/07/19 09:00 129 H 18 96/63 96 06/07/19 08:00 97.4 F L 140 H 21 90/77 97 06/07/19 07:00 110 H 16 76/60 97 06/07/19 06:00 121 H 16 85/65 96 06/07/19 05:00 120 H 20 82/59 95 06/07/19 04:00 97.8 F 114 H 13 86/62 96 06/07/19 03:00 135 H 11 L 81/65 96 06/07/19 02:00 128 H 17 98/63 96 06/07/19 01:00 120 H 18 101/88 96 06/07/19 00:36 109 H 22 101/88 94 L 06/07/19 00:00 97.9 F 125 H 16 96/64 92 L 06/06/19 23:00 112 H 15 84/66 96 06/06/19 22:00 115 H 39 H 100/88 97 06/06/19 21:00 105 H 25 H 116/99 97 06/06/19 20:00 97.6 F 80 11 L 108/86 97 06/06/19 19:00 111 H 18 117/91 93 L 06/06/19 18:00 142 H 19 88/58 98 06/06/19 17:00 99 26 H 95/71 93 L 06/06/19 16:00 96.9 F L 81 18 103/68 06/06/19 15:00 85 17 102/72 91 L 06/06/19 14:00 96 24 117/80 99 06/06/19 13:00 96.8 F L 83 21 97/78 98 Intake and Output 06/06/19 06/07/19 06/07/19 22:59 06:59 14:59 Intake Total 486.833 397.833 270 Output Total 1300 1000 425 Balance -813.167 -602.167 -155 Intake: IV 287 300 120 0.9 120 300 120 Vancomycin 2,500 mg In 167 Sodium Chloride 0.9% 500 ml 500 ml @ 167 mls/hr IVPB ONCE [facility] Rx#: [id number] Intake, IV Titration 199.833 97.833 150 Amount Clindamycin 600 mg In 50 50 Dextrose 5% in Water 50 ml @ 50 mls/hr IVPB Q8HR [facility] Rx#:[id number] Furosemide 100 mg In 149.833 97.833 Sodium Chloride 0.9% 90 ml @ 10 MG/HR 10 mls/hr IV .Q10H [facility] Rx#: [id number] ceFAZolin 2 gm In Sodium 100 Chloride 0.9% 50 ml @ 100 mls/hr IVPB Q8HR [facility] Rx# :[id number] Output: Urine 1300 1000 425 Other: Voiding Method Indwelling Catheter Indwelling Catheter Weight 156.1 kg On examination and is an obese male, slightly short of breath he did HEENT exam no JVP neck is supple no facial asymmetry Lungs are significant for bilateral fine crackles fair air entry bilaterally Heart sounds are unremarkable except for atrial fibrillation. No murmur rub gallop Abdomen is obese protuberant nontender no organomegaly ascites masses noted Extremity exam was 2+ edema with erythema of both lower legs below the third of his legs. Neurologically awake alert oriented. No focal motor deficits Results - Lab Results Most recent lab results ABG pH 7.50 (7.35-7.45) H 06/05/19 20:35 ABG pCO2 26 mmHg (35-45) L 06/05/19 20:35 ABG pO2 107 mmHg (83-108) 06/05/19 20:35 ABG HCO3 20 mmol/L (21-25) L 06/05/19 20:35 ABG O2 Saturation 98.5 % (94-97) H 06/05/19 20:35 Calcium 8.8 mg/dL (8.4-10.2) 06/07/19 04:43 Phosphorus 4.0 mg/dL (2.5-4.5) 06/06/19 05:11 Magnesium 2.0 mg/dL (1.6-2.3) 06/07/19 04:43 06/07/19 04:43 06/07/19 04:43 Assessment and Plan Assessment: Impression 1. Acute kidney injury from congestive heart failure. 2. Chronic kidney disease, stage III, GFR is 40-50 mL per minute, negative proteinuria on urinalysis baseline creatinine is about 1.4 dated 03/08/2018 and also 02/03/2019. Etiology is nephrosclerosis 3. Congestive heart failure. 4. Cellulitis of both lower legs with rash. 5. Chronic rash since December 2018 on the back severe itching 6. Hypertension controlled. 7. Rule out UTI because of pyuria and hematuria but asymptomatic. Rule out acute interstitial nephritis Recommendation 1. Maintain diuretic regimen. Will give him IV Lasix 40 every 12. 2. Check urine use the full count. 3. Check urine protein to creatinine ratio although urine analysis benign. 4. If she doesn't get better by 24-48 hours we'll workup for pulmonary renal syndrome
--- NOTE | 2019-06-07 12:57 | XR ---
EXAMINATION TYPE: XR chest 1V confirm line [facility] DATE OF EXAM: 06/07/2019 COMPARISON: 06/07/2019 HISTORY: Line placement. TECHNIQUE: Single frontal view of the chest is obtained. FINDINGS: Left-sided internal jugular central venous catheter terminates over the lateral aspect of the distal superior vena cava. No pneumothorax is seen. Diffuse interstitial pulmonary edema has wors ened. Nonvisualization of the entirety of the left lung. No sizable right pleural effusion. Again the re is an enlarged cardiac mediastinal silhouette. IMPRESSION: New internal jugular approach left-sided central venous catheter with no postprocedural pneumothorax. Worsening fluid overload.
--- NOTE | 2019-06-07 13:54 | P.PN ---
Subjective Progress Note Date: 06/07/19 63-year-old male patient with past medical history of chronic congestive heart failure, atrial fibrillation on Coumadin, cardiomyopathy with EF of less than 20%, will hypertension, with right-sided pressures of 41 mmHg , mild MR, mild TR, severe enlargement of the right ventricle, and moderately enlarged left atrium was noted on previous echocardiogram from December 2018. Other medical history includes morbid obesity, coronary artery disease, hypertension, hyperlipidemia, previous myocardial infarction, chronic kidney disease stage III, hypothyroidism, previous episodes of pneumonia, chronic venous stasis and previous episodes of cellulitis involving bilateral lower extremities. Patient is a lifetime nonsmoker, no history of chronic lung disease, he is not on home oxygen or CPAP device at home. Patient presented to the emergency department on 06/05/2019 at 1627 per EMS for evaluation of increasing shortness of breath, and concern for possibility of ST elevated NV, as per EKG performed by the EMS staff. In addition patient noted increasing lower extremity pain, redness, and swelling, his shortness of breath has been progressive over a period of 2 weeks, he has been orthopneic. Denied any fever or chills, denied any cough or congestion, denied chest pain. On arrival to the emergency department EKG was taken showing atrial fibrillation with left bundle branch block pattern that was unchanged from his most recent EKG. Patient was significantly dyspneic on presentation, lab work showed leukocytosis with a white blood cell count of 19.8, significantly reddened and painful and swollen lower extremities, left greater than right, increased neutrophils on the differential, metabolic panel showed mild anion gap acidosis, and lactic acidosis of 4.4, BUN of 42, and creatinine of 2.12, troponin was 0.052, and proBNP level of 25,000. D-dimer was negative at 0.19. Chest x-ray showed interstitial phase pulmonary edema, markedly enlarged cardiac silhouette. Left lower extremity x-ray was completed showing extensive foot and ankle soft tissue swelling, osteopenic metatarsal heads. Patient was placed on BiPAP support for worsening dyspnea, with pressures of 14/7, and FiO2 of 100%, started on IV diuretics and was given cefepime and vancomycin. Patient states he developed a generalized rash on chest, abdomen, and back. He states the rash on his chest is not itchy, however it is itchy on his back On today's evaluation of 06/07/2019 the patient is being seen for a follow-up. The patient is being treated for several episodes of the lower extremity. The patient was in volume overload and the patient was started on Lasix drip. Nevertheless, this morning, the blood pressure dropped and the patient went into atrial fibrillation with rapid ventricular response. His heart rate went up to the 130s to 140s range and the patient became also hypotensive. The patient was given amiodarone loading and he'll be started on maintenance. Most recent blood pressures the mid 90s. I have stopped his Lasix drip. A triple lumen catheter was established. The patient is producing adequate amount of urine output for now. No altered mentation. No cough or sputum production. No fever or chills. The white cell count is at 10.2. INR is at 2.0. Creatinine is down to 1.86. BUN of 44. Lactic acid level is down to 2.4. Objective - Vital Signs Vital signs: Vital Signs Temp 97.4 F L 06/07/19 08:00 Pulse 97 06/07/19 11:30 Resp 20 06/07/19 11:30 BP 91/69 06/07/19 11:30 Pulse Ox 96 06/07/19 12:08 Intake & Output 06/06/19 06/07/19 06/07/19 18:59 06:59 18:59 Intake Total 571 677.666 270 Output Total 1925 1550 425 Balance -4924 -872.334 -155 Weight 149.685 kg 156.1 kg Intake: IV 501 420 120 0.9 420 120 Vancomycin 2,500 mg In 501 Sodium Chloride 0.9% 500 ml 500 ml @ 167 mls/hr IVPB ONCE [facility] Rx#: [id number] Intake, IV Titration 70 257.666 150 Amount Clindamycin 600 mg In 50 50 Dextrose 5% in Water 50 ml @ 50 mls/hr IVPB Q8HR [facility] Rx#:[id number] Furosemide 100 mg In 70 207.666 Sodium Chloride 0.9% 90 ml @ 10 MG/HR 10 mls/hr IV .Q10H [facility] Rx#: [id number] ceFAZolin 2 gm In Sodium 100 Chloride 0.9% 50 ml @ 100 mls/hr IVPB Q8HR [facility] Rx# :[id number] Output: Urine 1924 1550 425 Other: Voiding Method Indwelling Catheter Indwelling Catheter - Exam GENERAL EXAM: Sleepy but arousable, obese white male, on BiPAP support currently on pressures of 14/7, and FiO2 of 40%, comfortable in no apparent distress. HEAD: Normocephalic/atraumatic. EYES: Normal reaction of pupils, equal size. Conjunctiva pink, sclera white. NOSE: Clear with pink turbinates. THROAT: No erythema or exudates. NECK: No masses, no JVD, no thyroid enlargement, no adenopathy. CHEST: No chest wall deformity. Symmetrical expansion. Generalized macular rash on chest, abdomen, back and arms LUNGS: very diminished breath sounds over left chest, crackles over right lower lobe CVS: Irregular rate and rhythm, distant S1 and S2, no gallops, no murmurs, no rubs ABDOMEN: Soft, nontender, obese with macular rash all over the old abdomen. No hepatosplenomegaly, normal bowel sounds, no guarding or rigidity. EXTREMITIES: No clubbing, extensive edema involving bilateral lower extremities with cellulitis redness and tenderness left greater than right, onychomycosis, dry cracked skin on bilateral soles, no cyanosis, 1+ pulses and upper and lower extremities. MUSCULOSKELETAL: Muscle strength and tone normal. SPINE: No scoliosis or deformity SKIN: Generalized macular rash on chest abdomen and back CENTRAL NERVOUS SYSTEM: Alert and oriented -3. No focal deficits, tone is normal in all 4 extremities. PSYCHIATRIC: Alert and oriented -3. Appropriate affect. Intact judgment and insight. - Labs CBC & Chem 7: 06/07/19 04:43 06/07/19 04:43 Labs: Abnormal Lab Results - Last 24 Hours (Table) 06/07/19 06/07/19 06/07/19 Range/Units 04:43 04:43 04:43 RDW 15.7 H (11.5-15.5) % Plt Count 102 L (150-450) k/uL Neutrophils # (Manual) 8.87 H (1.3-7.7) k/uL Lymphocytes # (Manual) 0.41 L (1.0-4.8) k/uL PT 19.4 H (9.0-12.0) sec INR 2.0 H (<1.2) Sodium 135 L (137-145) mmol/L BUN 44 H (9-20) mg/dL Creatinine 1.86 H (0.66-1.25) mg/dL Total Bilirubin 4.6 H (0.2-1.3) mg/dL Total Protein 5.7 L (6.3-8.2) g/dL Albumin 2.9 L (3.5-5.0) g/dL Microbiology - Last 24 Hours (Table) 06/06/19 10:35 Urine Culture - Final Urine,Clean Catch 06/05/19 19:46 Blood Culture - Preliminary Blood No Growth after 24 hours Assessment and Plan Plan: #1. Acute hypoxemic respiratory failure related to acute exacerbation of systolic CHF, requiring BiPAP support, with pressures of 14/7, and FiO2 of 40%, and a follow-up chest x-ray was done today following a triple lumen catheter insertion and the patient has some central venous congestion and interstitial edema which has somewhat gotten worse upon comparison. #2. Bilateral lower extremity cellulitis, left greater than right with extensive redness, swelling and tenderness involving lower extremities, ID is on the case and the patient is receiving local wound care and the patient is on broad-spectrum antibiotics including IV Kefzol and clindamycin #3. Generalized macular rash, presumably to antibiotics, this has been ongoing chronic problem for this patient. #4. Leukocytosis, improving and the white cell count is down to 10.2 #5. Anion gap metabolic acidosis with lactic acidosis of 4.4, multifactorial, related to acute CHF exacerbation, and possibility of sepsis #6. Acute on chronic kidney disease, creatinine is improving #7. Hypertension #8. Hyperlipidemia #9. Mild troponin leak #10. Coronary artery disease and ischemic cardiomyopathy with EF of less than 20% mild MR, mild TR, severe right ventricular and moderate left atrial enlar gement and right-sided pressures of 42 mmHg, Previous history of myocardial infarction #11. Atrial fibrillation with rapid ventricular response. Currently the patient is being loaded with amiodarone with subsequent maintenance. The patient is anticoagulated with warfarin. PT/INR is therapeutic for now with an INR of 2.0. #12. Hypothyroidism #13. Morbid obesity #14. Chronic venous stasis and past history of cellulitis involving lower extremities #15. Never smoker Plan Hold Lasix drip for now Monitor blood pressure Amiodarone loading and maintenance PT/INR therapeutic for now Pressors if needed should the patient become hypotensive Continue On Clindamycin Awaiting blood cultures ID is on the case Triple-lumen catheter was inserted and will monitor the CVP BiPAP for respiratory support. We'll may utilize airvo for oxygenation Daily PT/INR monitoring We'll continue to follow make further recommendations based on his progress. This is a critically care evaluation that was done and more than 30 minutes. Time with Patient: Greater than 30
--- NOTE | 2019-06-07 13:56 | P.PCN ---
Date of Procedure: 06/07/19 Preoperative Diagnosis: Hypotension/sepsis Postoperative Diagnosis: Hypotension/sepsis Procedure(s) Performed: Insertion of a central line catheter Anesthesia: local Surgeon: Jose Cruz Heaton Estimated Blood Loss (ml): 0 Operative Findings: Indication: Hemodynamic monitoring/Intravenous access. A time-out was completed verifying correct patient, procedure, site, positioning, and implant(s) or special equipment if applicable. The patient was placed in a dependent position appropriate for central line placement based on the vein to be cannulated. The patient left was prepped and draped in sterile fashion. 1% Lidocaine was used to anesthetize the surrounding skin area. A triple lumen 9F Cordis catheter was introduced into the left internal jugular using Seldinger technique. The catheter was threaded smoothly over the guide wire and appropriate blood return was obtained. Each lumen of the catheter was evacuated of air and flushed with sterile saline. The catheter was then sutured in place to the skin and a sterile dressing applied. Perfusion to the extremity distal to the point of catheter insertion was checked and found to be adequate. The patient tolerated the procedure well and there were no complications.
[2019-06-07 14:29] LABS: Protein/Creatinine Ratio,Urine 0.228
[2019-06-07] MEDS: FUROSEMIDE 10 MG/ML 4 ML VIAL IV SCH ×2 (15:20→20:03)
--- NOTE | 2019-06-07 16:21 | PN ---
PROGRESS NOTE DATE OF SERVICE: 06/07/2019 REASON FOR FOLLOWUP: 1. Left lower extremity cellulitis. 2. Athlete's foot. INTERVAL HISTORY: The patient is currently afebrile. The patient has been breathing comfortably. The patient denies having any chest pain or shortness of breath. Occasional cough. No abdominal pain or pain to the left leg area. Still has significant swelling and redness. Patient has been complaining of more itching that he has noticed today. PHYSICAL EXAMINATION: Blood pressure is 93/65 with a pulse of 87, temperature 98. He is 96% on high-flow oxygen. General description is a middle-aged male lying in bed in no distress. RESPIRATORY SYSTEM: Unlabored breathing with decreased breath sounds at the base. No wheeze. HEART: S1, S2. Regular rate and rhythm. ABDOMEN: Soft. No tenderness. Left leg swelling and redness slightly increased and the patient did have a maculopapular rash, rest of his body. No open wound or any drainage. LABS: Hemoglobin is 13.3, white count 10.2, BUN of 44, creatinine 1.86. Blood culture negative. Urine is negative. DIAGNOSTIC IMPRESSION AND PLAN: 1. Patient with extensive left lower extremity cellulitis in this patient who does have a history of ALLERGY TO UNASYN and now developing itching and rash to cefazolin, which has been discontinued. We will increase the dose of the clindamycin to 900 q.8 hours and monitor her clinical course closely. 2. Athlete's foot. Local care to continue with nystatin powder. MMODL / IJN: [id number] /
[2019-06-07] MEDS: CLINDAMYCIN 900 MG in DEXTROSE 5% IN WATER 50 ML IVPB SCH ×2 (16:32)
[2019-06-07] MEDS ORDERED: WARFARIN 5 MG TAB PO ONE (18:00)
[2019-06-07] MEDS: AMIODARONE 300 MG in DEXTROSE 5% IN WATER 250 ML IV SCH ×2 (18:15)
[2019-06-07] MEDS ORDERED: diphenhydrAMINE 25 MG CAP PO PRN (19:09)
[2019-06-08] MEDS ORDERED: HYDROCORTISONE 1% CREAM 30 GM TUBE TOPICAL PRN (00:52)
[2019-06-08] MEDS ORDERED: DEXAMETHASONE SOD PHOSPHATE 10 MG/ML 1 ML VIAL IV STA (00:52)
[2019-06-08] MEDS: CLINDAMYCIN 900 MG in DEXTROSE 5% IN WATER 50 ML IVPB SCH ×8 (00:53→23:34)
[2019-06-08] MEDS: diphenhydrAMINE 50 MG/ML 1 ML VIAL IVP PRN (01:05)
[2019-06-08] MEDS: AMIODARONE 300 MG in DEXTROSE 5% IN WATER 250 ML IV SCH ×2 (02:56)
[2019-06-08] MEDS: DILTIAZEM 125 MG in SODIUM CHLORIDE 0.9% 100 ML IV SCH ×2 (02:59→22:14)
[2019-06-08 04:59] LABS: INR 4.7 (<1.2); Prothrombin Time 46.9 sec (9.0-12.0)
[2019-06-08 05:01] LABS: Albumin 3.4 g/dL (3.5-5.0); Calcium 8.8 mg/dL (8.4-10.2); Total Bilirubin 4.6 mg/dL (0.2-1.3); Total Protein 6.5 g/dL (6.3-8.2)
[2019-06-08 05:05] LABS: Basophils % (A) 0 %; Eosinophils # (A) 0.1 k/uL (0-0.7); Eosinophils % (A) 1 %; HGB 13.5 gm/dL (13.0-17.5); Lymphocytes # (A) 0.8 k/uL (1.0-4.8); Lymphocytes % (A) 10 %; MCH 29.6 pg (25.0-35.0); MCHC 31.4 g/dL (31.0-37.0); MCV 94.3 fL (80.0-100.0); Mean Platelet Volume 14.7; Monocytes # (A) 0.2 k/uL (0-1.0); Monocytes % (A) 3 %; Neutrophils # (A) 6.6 k/uL (1.3-7.7); Neutrophils % (A) 84 %; Platelet Count 99 k/uL (150-450); RBC 4.56 m/uL (4.30-5.90); RDW 15.6 % (11.5-15.5); WBC 7.8 k/uL (3.8-10.6)
[2019-06-08 05:14] LABS: Potassium 4.4 mmol/L (3.5-5.1)
[2019-06-08 05:35] LABS: Large Platelets Present
[2019-06-08] MEDS: LEVOTHYROXINE 25 MCG TAB PO SCH (07:03)
--- NOTE | 2019-06-08 07:35 | XR ---
EXAMINATION TYPE: XR chest 1V DATE OF EXAM: 06/08/2019 COMPARISON: 06/07/2019 HISTORY: Line placement TECHNIQUE: Single frontal view of the chest is obtained. FINDINGS: Left-sided internal jugular central venous catheter terminates over the lateral aspect of the distal superior vena cava. No pneumothorax is seen. Diffuse interstitial pulmonary edema has wors ened. Nonvisualization of the entirety of the left lung. No sizable right pleural effusion. Again the re is an enlarged cardiac mediastinal silhouette. IMPRESSION: Diffuse interstitial pattern with left-sided consolidation correlate for CHF otherwise c onsider pneumonia findings stable.
--- NOTE | 2019-06-08 08:48 | P.PN ---
Subjective Progress Note Date: 06/08/19 Principal diagnosis: 61-year-old male is seen in consultation because of acute kidney injury from congestive heart failure and RTA renal syndrome as well as because of chronic kidney disease with a baseline creatinine of 1.4 dated 02/03/2019, GFR is in the CK D stage III level He was diuresed and has responded well with urine output of 15 50 mL an 7 45 mL over the last two 12 hour shifts. Vital signs are stable He is feeling much better less short of breath. We'll also very much bothered by a rash on the back which is improved. His legs are somewhat erythematous 6 especially the left one up to the knees with possible cellulitis although there is no tenderness He is known with atrial fibrillation history of very artery disease, Objective - Vital Signs Vital signs: Vital Signs Temp 98.5 F 06/08/19 04:00 Pulse 86 06/08/19 07:00 Resp 31 H 06/08/19 07:00 BP 126/93 06/08/19 07:00 Pulse Ox 93 L 06/08/19 07:00 Intake & Output 06/07/19 06/08/19 06/08/19 18:59 06:59 18:59 Intake Total 756.4 473.267 20 Output Total 745 375 45 Balance 11.4 98.267 -25 Weight 156.3 kg Intake: IV 240 240 20 0.9 240 240 20 Intake, IV Titration 516.4 233.267 Amount Amiodarone 300 mg In 16.6 233.267 Dextrose 5% in Water 250 ml @ 0.5 MG/MIN 25 mls/hr IV .Q10H [facility] Rx#: [id number] Amiodarone 360 mg In 199.8 Dextrose 5% in Water 200 ml @ 1 MG/MIN 33.333 mls/ hr IV .Q6H ONE Rx#: [id number] Clindamycin 600 mg In 50 Dextrose 5% in Water 50 ml @ 50 mls/hr IVPB Q8HR [facility] Rx#:[id number] Dextrose 5% in Water 100 150 ml @ 618 mls/hr IV .Q10M ONE with Amiodarone 150 mg Rx#:[id number] ceFAZolin 2 gm In Sodium 100 Chloride 0.9% 50 ml @ 100 mls/hr IVPB Q8HR [facility] Rx# :[id number] Output: Urine 745 375 45 Other: Voiding Method Indwelling Catheter Indwelling Catheter On examination is awake alert oriented comfortable on nasal cannula oxygen HEENT exam no JVP neck is supple no facial asymmetry Lungs are significant for an occasional coarse crackle good air entry bilat erally Heart sounds are unremarkable except for atrial fibrillation on the monitor Abdomen is soft nontender obese somewhat protuberant Extremity exam was 2+ edema with significant erythema of both legs more on the left than on the right. There is no tenderness. Neurologically awake alert oriented - Labs CBC & Chem 7: 06/08/19 04:30 06/08/19 04:30 Labs: Abnormal Lab Results - Last 24 Hours (Table) 06/08/19 06/08/19 06/08/19 Range/Units 04:30 04:30 04:30 RDW 15.6 H (11.5-15.5) % Plt Count 99 L (150-450) k/uL Lymphocytes # 0.8 L (1.0-4.8) k/uL PT 46.9 H (9.0-12.0) sec INR 4.7 H (<1.2) Sodium 134 L (137-145) mmol/L Carbon Dioxide 20 L (22-30) mmol/L BUN 53 H (9-20) mg/dL Creatinine 2.03 H (0.66-1.25) mg/dL Glucose 125 H (74-99) mg/dL Total Bilirubin 4.6 H (0.2-1.3) mg/dL AST 204 H (17-59) U/L ALT 100 H (4-49) U/L Albumin 3.4 L (3.5-5.0) g/dL Microbiology - Last 24 Hours (Table) 06/05/19 19:46 Blood Culture - Preliminary Blood No Growth after 48 hours 06/06/19 10:35 Urine Culture - Final Urine,Clean Catch Assessment and Plan Assessment: Impression 1. Acute kidney injury from congestive heart failure, cardiorenal syndrome. Being diuresed and responding well, creatinine remained stable. It was 1.86 yesterday is 2 today. Urine protein to creatinine ratio is 0.2, urine eosinophil is 0 2. Chronic kidney disease, stage III, GFR is 40-50 mL per minute, negative proteinuria on urinalysis baseline creatinine is about 1.4 dated 03/08/2018 and also 02/03/2019. Etiology is nephrosclerosis 3. Congestive heart failure. Atrial fibrillation Improved 4. Cellulitis of both lower legs with rash. Stable 5. Chronic rash since December 2018 on the back severe itching 6. Hypertension controlled. 7. Rule out UTI because of pyuria and hematuria but asymptomatic. Rule out acute interstitial nephritis. Urine cultures negative so far. 8. Thrombocytopenia, chronic. Platelet count is 99,000 and has been low even in 2018 Recommendation 1. Maintain diuretic regimen. IV Lasix 40 every 12. 2. Check urine use the full count. 3. If she doesn't get better by 24-48 hours we'll workup for pulmonary renal syndrome
[2019-06-08] MEDS: FUROSEMIDE 10 MG/ML 4 ML VIAL IV SCH ×2 (09:30→20:38)
[2019-06-08] MEDS: NYSTATIN 100,000 UNIT/GM POWD 15 GM TOPICAL SCH ×2 (09:30→20:40)
--- NOTE | 2019-06-08 10:58 | P.PN ---
Subjective Progress Note Date: 06/08/19 63-year-old male patient with past medical history of chronic congestive heart failure, atrial fibrillation on Coumadin, cardiomyopathy with EF of less than 20%, will hypertension, with right-sided pressures of 41 mmHg , mild MR, mild TR, severe enlargement of the right ventricle, and moderately enlarged left atrium was noted on previous echocardiogram from December 2018. Other medical history includes morbid obesity, coronary artery disease, hypertension, hyperlipidemia, previous myocardial infarction, chronic kidney disease stage III, hypothyroidism, previous episodes of pneumonia, chronic venous stasis and previous episodes of cellulitis involving bilateral lower extremities. Patient is a lifetime nonsmoker, no history of chronic lung disease, he is not on home oxygen or CPAP device at home. Patient presented to the emergency department on 06/05/2019 at 1627 per EMS for evaluation of increasing shortness of breath, and concern for possibility of ST elevated IN, as per EKG performed by the EMS staff. In addition patient noted increasing lower extremity pain, redness, and swelling, his shortness of breath has been progressive over a period of 2 weeks, he has been orthopneic. Denied any fever or chills, denied any cough or congestion, denied chest pain. On arrival to the emergency department EKG was taken showing atrial fibrillation with left bundle branch block pattern that was unchanged from his most recent EKG. Patient was significantly dyspneic on presentation, lab work showed leukocytosis with a white blood cell count of 19.8, significantly reddened and painful and swollen lower extremities, left greater than right, increased neutrophils on the differential, metabolic panel showed mild anion gap acidosis, and lactic acidosis of 4.4, BUN of 42, and creatinine of 2.12, troponin was 0.052, and proBNP level of 25,000. D-dimer was negative at 0.19. Chest x-ray showed interstitial phase pulmonary edema, markedly enlarged cardiac silhouette. Left lower extremity x-ray was completed showing extensive foot and ankle soft tissue swelling, osteopenic metatarsal heads. Patient was placed on BiPAP support for worsening dyspnea, with pressures of 14/7, and FiO2 of 100%, started on IV diuretics and was given cefepime and vancomycin. Patient states he developed a generalized rash on chest, abdomen, and back. He states the rash on his chest is not itchy, however it is itchy on his back On today's evaluation of 06/07/2019 the patient is being seen for a follow-up. The patient is being treated for several episodes of the lower extremity. The patient was in volume overload and the patient was started on Lasix drip. Nevertheless, this morning, the blood pressure dropped and the patient went into atrial fibrillation with rapid ventricular response. His heart rate went up to the 130s to 140s range and the patient became also hypotensive. The patient was given amiodarone loading and he'll be started on maintenance. Most recent blood pressures the mid 90s. I have stopped his Lasix drip. A triple lumen catheter was established. The patient is producing adequate amount of urine output for now. No altered mentation. No cough or sputum production. No fever or chills. The white cell count is at 10.2. INR is at 2.0. Creatinine is down to 1.86. BUN of 44. Lactic acid level is down to 2.4. On 06/08/2019, the patient has laying comfortably in bed. The patient is on oxygen at high flow at 10 L per minute nasal cannula with a pulse ox ranging between 91 and 94%. No signs of any respiratory distress. Chest x-ray showed cardiomegaly and some diffuse interstitial pattern related to interstitial edema and findings are essentially consistent with CHF. Note that yesterday, the patient went into atrial fibrillation with rapid ventricular response. Initially was placed on amiodarone. Later on the patient developed a reaction where he became flushed and diaphoretic and itching and he also developed a r mir. I was not informed of this. He was taken off the antibiotics and amiodarone by the primary care team. Currently the patient is on Cardizem drip for rate control which is running at the rate of 5 mg an hour. Heart rate is under better control. Meanwhile he was taken off the cephalosporin. I think it's reasonable to continue the clindamycin for now specially the patient is an active Celexa the left lower extremity and the area still warm and erythematous and hot. The white cell count is at 7.8. The patient is on no pressors. INR is at 4.7 and the Coumadin is on hold for now. Cultures of been all negative thus far. The patient has severe cardiomyopathy with an ejection fraction which is less than 25%. The patient also has dilatation of the RV which is severe and mild LA dilatation with a pulmonary artery pressure of around 28. He is on no pressors and he is holding his own blood pressure for now. Is awake and alert and following commands and answering questions appropriately. Objective - Vital Signs Vital signs: Vital Signs Temp 98.6 F 06/08/19 08:00 Pulse 98 06/08/19 10:00 Resp 20 06/08/19 10:00 BP 132/100 06/08/19 10:00 Pulse Ox 91 L 06/08/19 10:00 Intake & Output 06/07/19 06/08/19 06/08/19 18:59 06:59 18:59 Intake Total 756.4 473.267 130 Output Total 745 375 395 Balance 11.4 98.267 -265 Weight 156.3 kg Intake: IV 240 240 80 0.9 240 240 80 Intake, IV Titration 516.4 233.267 50 Amount Amiodarone 300 mg In 16.6 233.267 Dextrose 5% in Water 250 ml @ 0.5 MG/MIN 25 mls/hr IV .Q10H [facility] Rx#: [id number] Amiodarone 360 mg In 199.8 Dextrose 5% in Water 200 ml @ 1 MG/MIN 33.333 mls/ hr IV .Q6H ONE Rx#: [id number] Clindamycin 600 mg In 50 50 Dextrose 5% in Water 50 ml @ 50 mls/hr IVPB Q8HR [facility] Rx#:[id number] Dextrose 5% in Water 100 150 ml @ 618 mls/hr IV .Q10M ONE with Amiodarone 150 mg Rx#:[id number] ceFAZolin 2 gm In Sodium 100 Chloride 0.9% 50 ml @ 100 mls/hr IVPB Q8HR [facility] Rx# :[id number] Output: Urine 745 375 395 Other: Voiding Method Indwelling Catheter Indwelling Catheter Indwelling Catheter - Exam GENERAL EXAM: Sleepy but arousable, obese white male, on 10 L per minute nasal cannula high flow oxygen, comfortable in no apparent distress. HEAD: Normocephalic/atraumatic. EYES: Normal reaction of pupils, equal size. Conjunctiva pink, sclera white. NOSE: Clear with pink turbinates. THROAT: No erythema or exudates. NECK: No masses, no JVD, no thyroid enlargement, no adenopathy. CHEST: No chest wall deformity. Symmetrical expansion. Generalized macular rash on chest, abdomen, back and arms LUNGS: very diminished breath sounds over left chest, crackles over right lower lobe CVS: Irregular rate and rhythm, distant S1 and S2, no gallops, no murmurs, no rubs, rate is better controlled with the control of atrial fibrillation ABDOMEN: Soft, nontender, obese with macular rash all over the old abdomen. No hepatosplenomegaly, normal bowel sounds, no guarding or rigidity. EXTREMITIES: No clubbing, extensive edema involving bilateral lower extremities with cellulitis redness and tenderness left greater than right, onychomycosis, dry cracked skin on bilateral soles, no cyanosis, 1+ pulses and upper and lower extremities. MUSCULOSKELETAL: Muscle strength and tone normal. SPINE: No scoliosis or deformity SKIN: Generalized macular rash on chest abdomen and back CENTRAL NERVOUS SYSTEM: Alert and oriented -3. No focal deficits, tone is normal in all 4 extremities. PSYCHIATRIC: Alert and oriented -3. Appropriate affect. Intact judgment and insight. - Labs CBC & Chem 7: 06/08/19 04:30 06/08/19 04:30 Labs: Abnormal Lab Results - Last 24 Hours (Table) 06/08/19 06/08/19 06/08/19 Range/Units 04:30 04:30 04:30 RDW 15.6 H (11.5-15.5) % Plt Count 99 L (150-450) k/uL Lymphocytes # 0.8 L (1.0-4.8) k/uL PT 46.9 H (9.0-12.0) sec INR 4.7 H (<1.2) Sodium 134 L (137-145) mmol/L Carbon Dioxide 20 L (22-30) mmol/L BUN 53 H (9-20) mg/dL Creatinine 2.03 H (0.66-1.25) mg/dL Glucose 125 H (74-99) mg/dL Total Bilirubin 4.6 H (0.2-1.3) mg/dL AST 204 H (17-59) U/L ALT 100 H (4-49) U/L Albumin 3.4 L (3.5-5.0) g/dL Microbiology - Last 24 Hours (Table) 06/05/19 19:46 Blood Culture - Preliminary Blood No Growth after 48 hours 06/06/19 10:35 Urine Culture - Final Urine,Clean Catch Assessment and Plan Plan: #1. Acute hypoxemic respiratory failure related to acute exacerbation of systolic CHF, requiring BiPAP support, with pressures of 14/7, and FiO2 of 40%, and a follow-up chest x-ray was done today following a triple lumen catheter insertion and the patient has some central venous congestion and interstitial edema which has somewhat gotten worse upon comparison. The CVP is still elevated. The patient has been taken off the BiPAP and currently the patient is on high flow oxygen at 10 L per minute nasal cannula which she is able to tolerate without any major difficulties. #2. Bilateral lower extremity cellulitis, left greater than right with extensive redness, swelling and tenderness involving lower extremities, ID is on the case and the patient is receiving local wound care and the patient is on broad-spectrum antibiotics including IV Kefzol and clindamycin. The patient developed a diffuse rash and itching and the patient was taken off the Kefzol. It is possible that the patient is having a penicillin/cephalosporin ALLERGY. The patient was given Decadron. #3. Generalized macular rash, presumably to antibiotics, this has been ongoing chronic problem for this patient. #4. Leukocytosis, improving and the white cell count is down to 7.8 from a baseline of 14.3 #5. Anion gap metabolic acidosis with lactic acidosis of 4.4, and the lactic acid level is improved and is down to 2.4 #6. Acute on chronic kidney disease, creatinine is improving, creatinine stable at 2.0 #7. Hypertension #8. Hyperlipidemia #9. Mild troponin leak #10. Coronary artery disease and ischemic cardiomyopathy with EF of less than 25% mild MR, mild TR, severe right ventricular and moderate left atrial enlar gement and right-sided pressures of 42 mmHg, Previous history of myocardial infarction #11. Atrial fibrillation with rapid ventricular response. Currently on Cardizem drip at 5 mg an hour with adequate rate control. INR is at 4.0 and the Coumadin will be placed on hold.. #12. Hypothyroidism #13. Morbid obesity #14. Chronic venous stasis and past history of cellulitis involving lower extr emities #15. Never smoker Plan Continue the clindamycin and discuss antibiotic options with infectious disease. I the reactions that are occurring is mainly related to either penicillin or cephalosporins. The patient gets rashes and hives and itching. Continue clindamycin for now. 7 lites of the left lower eczematous still active. Restart Lasix and the blood pressure tolerates. The patient on Lasix 40 mg IV push every 12 hours. Monitor blood pressure Cardizem drip as maintenance and currently Cardizem is running at 5 mg an hour PT/INR therapeutic for now, PT/INR is elevated and supratherapeutic Pressors if needed should the patient become hypotensive Continue On Clindamycin Awaiting blood cultures ID is on the case Triple-lumen catheter was inserted and will monitor the CVP BiPAP for respiratory support. We'll may utilize airvo for oxygenation, currently on high flow oxygen 10 L per minute nasal cannula Daily PT/INR monitoring We'll continue to follow make further recommendations based on his progress.
--- NOTE | 2019-06-08 12:09 | PN ---
PROGRESS NOTE This patient's clinical panels, lab tests, medications reviewed. The patient's condition discussed with the patient's nurse. The patient was started on IV amiodarone yesterday to control the atrial fib and ventricular rate. Subsequently patient had developed the rash. His liver enzymes were also elevated today. The amiodarone was discontinued last night. The patient is currently on a small dose of IV Cardizem drip to control the rate. The patient had does have a severely impaired left ventricular systolic function. He has been diuresing fairly well with IV diuretics. Clinically patient is remains stable. Creatinine is 2.03. We will continue the IV Lasix. [id number] / MARTAN: [id number] /
[2019-06-08] MEDS ORDERED: WARFARIN 0.5 MG TAB PO ONE (18:00)
--- NOTE | 2019-06-09 01:07 | P.PN ---
Subjective Progress Note Date: 06/07/19 Principal diagnosis: Acute CHF exacerbation This is a 63-year-old patient of Dr. Hall. Patient was in the hospital early January 2019. Patient admitted with a diagnosis of CHF EF of 20-25%, atrial flutter fibrillation, acute ischemic hepatitis from hypertension, and acute left lower extremity cellulitis. Also had acute renal failure. Patient now presents with worsening short of breath. Maupin to be in CHF exacerbation. Put on a Lasix drip. Patient has some chronic swelling of the left lower extremity. On BiPAP. Admitted to ICU. Rather tired to give any further history. Also redness of the left lower extremity. Some of which is known to be chronic. Started her antibiotics. Review of systems cannot be done as patient rather lethargic. Past medical history to include: CHF EF 20-25%, atrial flutter fibrillation, left bundle-branch block, morbid obesity, left lower external recent mellitus, hyperlipidemia, hypertension, chronic kidney disease stage III, bilateral lower extremity venous insufficiency. INVESTIGATIONS, reviewed in the clinical context: White count 19.8 hemoglobin 13.6 platelets 126 Sodium 135 potassium 4.9 bun 42 creatinine 2.12 EKG tracing personally reviewed by me-left bundle-branch block possible atrial fibrillation Chest x-ray film personally reviewed by me-cardiomegaly with venous prominence Troponin I 0.052, 0.080 06/07/2019 Patient is currently in the MICU. Currently being treated for acute on chronic CHF. Still having bilateral lower activity swelling and redness of the left lower extremity. Currently being continued on IV Lasix. Patient went into A. fib with RVR and is currently on amiodarone drip. Patient is also hypotensive. Currently being continued on IV antibiotics as per ID recommendations. Renal function slightly improved with creatinine level I.86 Patient is complaining of itching and rash on his back which has been present prior to admission. Pulmonary, ID and nephrology is following. Current medications reviewed. Objective - Vital Signs Vital signs: Vital Signs Temp 97.4 F L 06/07/19 08:00 Pulse 97 06/07/19 11:30 Resp 20 06/07/19 11:30 BP 91/69 06/07/19 11:30 Pulse Ox 96 06/07/19 12:08 Intake & Output 06/06/19 06/07/19 06/07/19 18:59 06:59 18:59 Intake Total 571 677.666 270 Output Total 1925 1550 425 Balance -1354 -872.334 -155 Weight 149.685 kg 156.1 kg Intake: IV 501 420 120 0.9 420 120 Vancomycin 2,500 mg In 501 Sodium Chloride 0.9% 500 ml 500 ml @ 167 mls/hr [facility] Rx#: [id number] Intake, IV Titration 70 257.666 150 Amount Clindamycin 600 mg In 50 50 Dextrose 5% in Water 50 ml @ 50 mls/hr IVPB Q8HR [facility] Rx#:[id number] Furosemide 100 mg In 70 207.666 Sodium Chloride 0.9% 90 ml @ 10 MG/HR 10 mls/hr IV .Q10H [facility] Rx#: [id number] ceFAZolin 2 gm In Sodium 100 Chloride 0.9% 50 ml @ 100 mls/hr IVPB Q8HR [facility] Rx# :[id number] Output: Urine 1924 1550 425 Other: Voiding Method Indwelling Catheter Indwelling Catheter - Exam GENERAL: BMI 40.7, laying in bed tired on a BiPAP. EYES: Pupils equal. Conjunctiva normal. HEENT: External appearance of nose and ears normal, oral cavity grossly normal. NECK: JVD unable to assess; masses not palpable. HEART: Heart sounds regular; edema present. LUNGS: Respiratory rate increased, diminished breath sounds bilaterally speak in full sentences. ABDOMEN: Soft, nontender, liver spleen not palpable, no masses palpable. PSYCH: [Unable to assess patient rather lethargic l. NEUROLOGICAL: [Cranial nerves grossly intact; no facial asymmetry, moving all his limbs EXTREMITIES: Left leg is enlarged compared to the right with some redness swelling from below the knee going down to the foot. hermes wrap LYMPHATICS: No lymph nodes palpable in the axilla and neck - Labs CBC & Chem 7: 06/08/19 04:30 06/08/19 04:30 Labs: Abnormal Lab Results - Last 24 Hours (Table) 06/07/19 06/07/19 06/07/19 Range/Units 04:43 04:43 04:43 RDW 15.7 H (11.5-15.5) % Plt Count 102 L (150-450) k/uL Neutrophils # (Manual) 8.87 H (1.3-7.7) k/uL Lymphocytes # (Manual) 0.41 L (1.0-4.8) k/uL PT 19.4 H (9.0-12.0) sec INR 2.0 H (<1.2) Sodium 135 L (137-145) mmol/L BUN 44 H (9-20) mg/dL Creatinine 1.86 H (0.66-1.25) mg/dL Total Bilirubin 4.6 H (0.2-1.3) mg/dL Total Protein 5.7 L (6.3-8.2) g/dL Albumin 2.9 L (3.5-5.0) g/dL Microbiology - Last 24 Hours (Table) 06/05/19 19:46 Blood Culture - Preliminary Blood No Growth after 24 hours 06/06/19 10:35 Urine Culture - Preliminary Urine,Clean Catch Assessment and Plan Assessment: Assessment: -Acute on chronic congestive heart failure exacerbation from diastolic and systolic dysfunction EF 20-25%, decompensated, -Persistent atrial fibrillation/flutter with RVR -Left bundle-branch block -Morbid obesity BMI 52.3 -Acute left lower extremity cellulitis -Hyperlipidemia -Essential hypertension -Chronic kidney disease stage III from nephrosclerosis at her baseline -Acute kidney injury, likely prerenal from cardiorenal syndrome, -Bilateral lower extremity venous insufficiency and chronic venous stasis -Troponin leak from chronic kidney disease, no evidence of acute coronary syndrome -Coumadin monitoring -Hypothyroid Plan: Patient is in the ICU. On IV Lasix drip. Strict I's and O's. Patient's IV clindamycin. Patient is being followed by cardiology, pulmonary. Also nephrology and ID. Continued On Silvadene with Kerlix and Hermes wrap. Time with Patient: Greater than 30
--- NOTE | 2019-06-09 01:16 | P.PN ---
Subjective Progress Note Date: 06/08/19 Principal diagnosis: Acute CHF exacerbation This is a 63-year-old patient of Dr. Hall. Patient was in the hospital early January 2019. Patient admitted with a diagnosis of CHF EF of 20-25%, atrial flutter fibrillation, acute ischemic hepatitis from hypertension, and acute left lower extremity cellulitis. Also had acute renal failure. Patient now presents with worsening short of breath. [place] to be in CHF exacerbation. Put on a Lasix drip. Patient has some chronic swelling of the left lower extremity. On BiPAP. Admitted to ICU. Rather tired to give any further history. Also redness of the left lower extremity. Some of which is known to be chronic. Started her antibiotics. Review of systems cannot be done as patient rather lethargic. Past medical history to include: CHF EF 20-25%, atrial flutter fibrillation, left bundle-branch block, morbid obesity, left lower external recent mellitus, hyperlipidemia, hypertension, chronic kidney disease stage III, bilateral lower extremity venous insufficiency. INVESTIGATIONS, reviewed in the clinical context: White count 19.8 hemoglobin 13.6 platelets 126 Sodium 135 potassium 4.9 bun 42 creatinine 2.12 EKG tracing personally reviewed by me-left bundle-branch block possible atrial fibrillation Chest x-ray film personally reviewed by me-cardiomegaly with venous prominence Troponin I 0.052, 0.080 06/07/2019 Patient is currently in the MICU. Currently being treated for acute on chronic CHF. Still having bilateral lower activity swelling and redness of the left lower extremity. Currently being continued on IV Lasix. Patient went into A. fib with RVR and is currently on amiodarone drip. Patient is also hypotensive. Currently being continued on IV antibiotics as per ID recommendations. Renal function slightly improved with creatinine level I.86 Patient is complaining of itching and rash on his back which has been present prior to admission. Pulmonary, ID and nephrology is following. June 08 2019 Patient is currently lying in the bed comfortably. Awake alert and oriented. Breathing status is slightly better still requiring high flow oxygen at 10 L via nasal cannula. On Lasix drip due to acute on chronic CHF with systolic dysfunction ejection fraction 25%. Currently being continued on antibiotics in the form of IV clindamycin. Last night patient was complaining of worsening itching and rash on his back. Cefazolin was on hold due to possible ALLERGIC reaction. ID is following. Otherwise left lower extremity redness and swelling is improved compared to yesterday. Chest x-ray showed diffuse interstitial pattern with left-sided consolidation correlate for CHF. INR is 4.7 today. WBC 7.8. Urine culture and blood cultures negative so far. Creatinine level slightly increased to 2.03 and BUN 53 AST 204, ALT 100 Current medications reviewed. Objective - Vital Signs Vital signs: Vital Signs Temp 98.6 F 06/08/19 08:00 Pulse 98 06/08/19 10:00 Resp 20 06/08/19 10:00 BP 132/100 06/08/19 10:00 Pulse Ox 91 L 06/08/19 10:00 Intake & Output 06/07/19 06/08/19 06/08/19 18:59 06:59 18:59 Intake Total 756.4 473.267 130 Output Total 745 375 395 Balance 11.4 98.267 -265 Weight 156.3 kg Intake: IV 240 240 80 0.9 240 240 80 Intake, IV Titration 516.4 233.267 50 Amount Amiodarone 300 mg In 16.6 233.267 Dextrose 5% in Water 250 ml @ 0.5 MG/MIN 25 mls/hr IV .Q10H [facility] Rx#: [id number] Amiodarone 360 mg In 199.8 Dextrose 5% in Water 200 ml @ 1 MG/MIN 33.333 mls/ hr IV .Q6H [facility] Rx#: [id number] Clindamycin 600 mg In 50 50 Dextrose 5% in Water 50 ml @ 50 mls/hr IVPB Q8HR [facility] Rx#:[id number] Dextrose 5% in Water 100 150 ml @ 618 mls/hr IV .Q10M [facility] with Amiodarone 150 mg Rx#:[id number] ceFAZolin 2 gm In Sodium 100 Chloride 0.9% 50 ml @ 100 mls/hr IVPB Q8HR [facility] Rx# :[id number] Output: Urine 745 375 395 Other: Voiding Method Indwelling Catheter Indwelling Catheter Indwelling Catheter - Exam GENERAL: BMI 40.7, laying in bed , on high flow oxygen. EYES: Pupils equal. Conjunctiva normal. HEENT: External appearance of nose and ears normal, oral cavity grossly normal. NECK: JVD unable to assess; masses not palpable. HEART: Heart sounds regular; edema present. LUNGS: Respiratory rate increased, diminished breath sounds bilaterally speak in full sentences. ABDOMEN: Soft, nontender, liver spleen not palpable, no masses palpable. PSYCH: [Unable to assess patient rather lethargic l. NEUROLOGICAL: [Cranial nerves grossly intact; no facial asymmetry, moving all his limbs EXTREMITIES: Left leg is enlarged compared to the right with some redness swelling from below the knee going down to the foot. LYMPHATICS: No lymph nodes palpable in the axilla and neck - Labs CBC & Chem 7: 06/08/19 04:30 06/08/19 04:30 Labs: Abnormal Lab Results - Last 24 Hours (Table) 06/08/19 06/08/19 06/08/19 Range/Units 04:30 04:30 04:30 RDW 15.6 H (11.5-15.5) % Plt Count 99 L (150-450) k/uL Lymphocytes # 0.8 L (1.0-4.8) k/uL PT 46.9 H (9.0-12.0) sec INR 4.7 H (<1.2) Sodium 134 L (137-145) mmol/L Carbon Dioxide 20 L (22-30) mmol/L BUN 53 H (9-20) mg/dL Creatinine 2.03 H (0.66-1.25) mg/dL Glucose 125 H (74-99) mg/dL Total Bilirubin 4.6 H (0.2-1.3) mg/dL AST 204 H (17-59) U/L ALT 100 H (4-49) U/L Albumin 3.4 L (3.5-5.0) g/dL Microbiology - Last 24 Hours (Table) 06/05/19 19:46 Blood Culture - Preliminary Blood No Growth after 48 hours 06/06/19 10:35 Urine Culture - Final Urine,Clean Catch Assessment and Plan Assessment: Assessment: -Acute on chronic congestive heart failure exacerbation from diastolic and systolic dysfunction EF 20-25%, decompensated, -Persistent atrial fibrillation/flutter with RVR. -Left bundle-branch block -Morbid obesity BMI 52.3 -Acute left lower extremity cellulitis -Hyperlipidemia -Essential hypertension -Chronic kidney disease stage III from nephrosclerosis at her baseline -Acute kidney injury, likely prerenal from cardiorenal syndrome, -Bilateral lower extremity venous insufficiency and chronic venous stasis -Troponin leak from chronic kidney disease, no evidence of acute coronary syndrome -Coumadin monitoring -Hypothyroid -Mild transaminitis Plan: Patient is in the ICU. was On IV Lasix drip. Changed to Lasix IV 40 twice a day. Strict I's and O's. Patient's IV clindamycin. Patient is being followed by cardiology, pulmonary. Also nephrology and ID. Continued On Silvadene with Kerlix and Hermes wrap. Time with Patient: Greater than 30
[2019-06-09 05:22] LABS: HCT 42.5 % (39.0-53.0); HGB 13.4 gm/dL (13.0-17.5); MCH 29.7 pg (25.0-35.0); MCHC 31.5 g/dL (31.0-37.0); MCV 94.3 fL (80.0-100.0); Mean Platelet Volume 15.4; Platelet Count 102 k/uL (150-450); RBC 4.51 m/uL (4.30-5.90); RDW 15.5 % (11.5-15.5)
[2019-06-09 05:31] LABS: Prothrombin Time 66.3 sec (9.0-12.0)
[2019-06-09 05:35] LABS: Albumin 3.5 g/dL (3.5-5.0); Calcium 9.1 mg/dL (8.4-10.2); Potassium 4.1 mmol/L (3.5-5.1); Total Bilirubin 3.1 mg/dL (0.2-1.3); Total Protein 6.4 g/dL (6.3-8.2)
[2019-06-09 05:38] LABS: INR 6.5 (<1.2)
[2019-06-09 05:45] LABS: Band Neutrophils % 1 %; Large Platelets Present; Lymphocytes # (M) 0.16 k/uL (1.0-4.8); Monocytes # (M) 0.08 k/uL (0-1.0); Neutrophils % (M) 96 %; Nucleated Red Blood Cells 0 /100 WBC (0-0); Total Cells Counted 100
[2019-06-09] MEDS: LEVOTHYROXINE 25 MCG TAB PO SCH (05:52)
--- NOTE | 2019-06-09 08:12 | XR ---
EXAMINATION TYPE: XR chest 1V DATE OF EXAM: 06/09/2019 COMPARISON: Prior chest 06/08/2019 HISTORY: Abnormal chest x-ray TECHNIQUE: Single frontal view of the chest is obtained. FINDINGS: Left jugular central venous catheter shows the distal tip abutting the superior vena caval wall region. No evident pneumothorax or pleural effusion. Heart is enlarged, patient is rotated. Aor ta is dense. Pulmonary vascularity and interstitium remain increased. IMPRESSION: Findings similar to prior exam, correlate for pulmonary venous hypertension and intersti tial edema.
--- NOTE | 2019-06-09 08:16 | P.PN ---
Subjective Patient is seen in follow-up for acute kidney injury on chronic kidney disease. Renal function is stable. Denies chest pain or shortness of breath. Chest x- ray still suggestive of fluid overload. He is on Cardizem drip for A. fib with RVR. Vital signs are stable. General: The patient appeared well nourished and normally developed. HEENT: Head exam is unremarkable. Neck is without jugular venous distension. LUNGS: Breath sounds decreased. HEART: Irregular rate and rhythm. ABDOMEN: Abdominal exam reveals normal bowel sounds. Non-tender and non- distended. No evidence of peritonitis. EXTREMITITES: 1+ edema. Erythema noted. No drainage. Objective - Vital Signs Vital signs: Vital Signs Temp 97.6 F 06/09/19 04:00 Pulse 80 06/09/19 07:00 Resp 16 06/09/19 07:00 BP 115/99 06/09/19 07:00 Pulse Ox 94 L 06/09/19 07:00 Intake & Output 06/08/19 06/09/19 06/09/19 18:59 06:59 18:59 Intake Total 940 1336.25 20 Output Total 1120 620 50 Balance -180 716.25 -30 Weight 155.5 kg Intake: IV 240 240 20 0.9 240 240 20 Intake, IV Titration 100 96.25 Amount Clindamycin 600 mg In 50 Dextrose 5% in Water 50 ml @ 50 mls/hr IVPB Q8HR [facility] Rx#:[id number] Clindamycin 900 mg In 50 Dextrose 5% in Water 50 ml @ 50 mls/hr IVPB Q8HR [facility] Rx#:[id number] Diltiazem 125 mg In 96.25 Sodium Chloride 0.9% 100 ml @ 5 MG/HR 5 mls/hr IV .Q24H [facility] Rx#:[id number] Oral 600 1000 Output: Urine 1120 620 50 Other: Voiding Method Indwelling Catheter Indwelling Catheter - Labs CBC & Chem 7: 06/09/19 05:10 06/09/19 05:10 Labs: Abnormal Lab Results - Last 24 Hours (Table) 06/09/19 06/09/19 06/09/19 Range/Units 05:10 05:10 05:10 Plt Count 102 L (150-450) k/uL Lymphocytes # (Manual) 0.16 L (1.0-4.8) k/uL PT 66.3 H (9.0-12.0) sec INR 6.5 H* (<1.2) Sodium 136 L (137-145) mmol/L BUN 60 H (9-20) mg/dL Creatinine 1.92 H (0.66-1.25) mg/dL Glucose 134 H (74-99) mg/dL Total Bilirubin 3.1 H (0.2-1.3) mg/dL AST 188 H (17-59) U/L ALT 123 H (4-49) U/L Microbiology - Last 24 Hours (Table) 06/05/19 19:46 Blood Culture - Preliminary Blood No Growth after 72 hours Assessment and Plan Plan: Assessment: 1. Acute kidney injury secondary to ATN secondary to cardiorenal syndrome. Renal function stable. Creatinine 1.92 today. No proteinuria on UA. Urine eosinophils negative. 2. A. fib with RVR maintained on Cardizem drip. 3. Acute on chronic systolic CHF with ejection fraction of 20-25%. 4. Volume overload. 5. Chronic kidney disease stage III with baseline creatinine 1.5-1.7. Plan: Increase Lasix to 60 mg IV twice daily. Add metolazone 2.5 mg once daily. Continue to monitor renal function and urine output. Avoid nephrotoxins.
--- NOTE | 2019-06-09 08:34 | PN ---
PROGRESS NOTE DATE OF SERVICE: 06/08/2019 REASON FOR FOLLOWUP: 1. Left lower extremity cellulitis. 2. Acute foot wound. INTERVAL HISTORY: The patient is currently afebrile. The patient has been breathing more comfortably. Denies having any chest pain. No cough. No abdominal pain. No pain to the left leg and overall patient has improved. PHYSICAL EXAMINATION: Blood pressure 136/100 with a pulse of 90, temperature 97.4. He is 98% on high-flow oxygen. General description is a middle-aged male lying in bed in no distress. RESPIRATORY SYSTEM: Unlabored breathing. Decreased breath sounds at bases. No wheeze. HEART: S1, S2. Regular rate and rhythm. ABDOMEN: Soft, no tenderness. Left leg swelling, redness slightly improved. LABS: Hemoglobin is 13.5, white count 7.8. BUN 53, creatinine is 2.03. DIAGNOSTIC IMPRESSION AND PLAN: Patient with acute left lower extremity cellulitis with the patient did have evidence of fluid overload. The patient is currently covered with clindamycin because of his allergy to continue and monitor clinical course closely. Continue supportive care. MMODL / IJN: [id number] /
[2019-06-09] MEDS: CLINDAMYCIN 900 MG in DEXTROSE 5% IN WATER 50 ML IVPB SCH ×4 (08:38→16:57)
[2019-06-09] MEDS: METOLAZONE 2.5 MG TAB PO SCH (08:39)
[2019-06-09] MEDS: FUROSEMIDE 10 MG/ML 10 ML VIAL IV SCH ×2 (08:44→20:02)
[2019-06-09] MEDS: NYSTATIN 100,000 UNIT/GM POWD 15 GM TOPICAL SCH ×2 (08:45→20:03)
[2019-06-09] MEDS: METOPROLOL TARTRATE 12.5 MG TAB PO SCH ×3 (10:16→20:02)
--- NOTE | 2019-06-09 10:38 | P.PN ---
Subjective Progress Note Date: 06/09/19 Principal diagnosis: Acute hypoxic respiratory failure secondary to acute exacerbation of systolic congestive heart failure. 63-year-old male patient with past medical history of chronic congestive heart failure, atrial fibrillation on Coumadin, cardiomyopathy with EF of less than 20%, will hypertension, with right-sided pressures of 41 mmHg , mild MR, mild TR, severe enlargement of the right ventricle, and moderately enlarged left atrium was noted on previous echocardiogram from December 2018. Other medical history includes morbid obesity, coronary artery disease, hypertension, hyperlipidemia, previous myocardial infarction, chronic kidney disease stage III, hypothyroidism, previous episodes of pneumonia, chronic venous stasis and previous episodes of cellulitis involving bilateral lower extremities. Patient is a lifetime nonsmoker, no history of chronic lung disease, he is not on home oxygen or CPAP device at home. Patient presented to the emergency department on 06/05/2019 at 1627 per EMS for evaluation of increasing shortness of breath, and concern for possibility of ST elevated [place], as per EKG performed by the EMS staff. In addition patient noted increasing lower extremity pain, redness, and swelling, his shortness of breath has been progressive over a period of 2 weeks, he has been orthopneic. Denied any fever or chills, denied any cough or c ongestion, denied chest pain. On arrival to the emergency department EKG was taken showing atrial fibrillation with left bundle branch block pattern that was unchanged from his most recent EKG. Patient was significantly dyspneic on presentation, lab work showed leukocytosis with a white blood cell count of 19.8, significantly reddened and painful and swollen lower extremities, left greater than right, increased neutrophils on the differential, metabolic panel showed mild anion gap acidosis, and lactic acidosis of 4.4, BUN of 42, and creatinine of 2.12, troponin was 0.052, and proBNP level of 25,000. D-dimer was negative at 0.19. Chest x-ray showed interstitial phase pulmonary edema, marke dly enlarged cardiac silhouette. Left lower extremity x-ray was completed showing extensive foot and ankle soft tissue swelling, osteopenic metatarsal heads. Patient was placed on BiPAP support for worsening dyspnea, with pressures of 14/7, and FiO2 of 100%, started on IV diuretics and was given cefepime and vancomycin. Patient states he developed a generalized rash on chest, abdomen, and back. He states the rash on his chest is not itchy, however it is itchy on his back On today's evaluation of 06/07/2019 the patient is being seen for a follow-up. The patient is being treated for several episodes of the lower extremity. The patient was in volume overload and the patient was started on Lasix drip. Nevertheless, this morning, the blood pressure dropped and the patient went into atrial fibrillation with rapid ventricular response. His heart rate went up to the 130s to 140s range and the patient became also hypotensive. The patient was given amiodarone loading and he'll be started on maintenance. Most recent blood pressures the mid 90s. I have stopped his Lasix drip. A triple lumen catheter was established. The patient is producing adequate amount of urine output for n ow. No altered mentation. No cough or sputum production. No fever or chills. The white cell count is at 10.2. INR is at 2.0. Creatinine is down to 1.86. BUN of 44. Lactic acid level is down to 2.4. On 06/08/2019, the patient has laying comfortably in bed. The patient is on oxygen at high flow at 10 L per minute nasal cannula with a pulse ox ranging between 91 and 94%. No signs of any respiratory distress. Chest x-ray showed cardiomegaly and some diffuse interstitial pattern related to interstitial edema and findings are essentially consistent with CHF. Note that yesterday, the pat ient went into atrial fibrillation with rapid ventricular response. Initially was placed on amiodarone. Later on the patient developed a reaction where he became flushed and diaphoretic and itching and he also developed a rash. I was not informed of this. He was taken off the antibiotics and amiodarone by the primary care team. Currently the patient is on Cardizem drip for rate control which is running at the rate of 5 mg an hour. Heart rate is under better control. Meanwhile he was taken off the cephalosporin. I think it's reasonable to continue the clindamycin for now specially the patient is an active Celexa the left lower extremity and the area still warm and erythematous and hot. The white cell count is at 7.8. The patient is on no pressors. INR is at 4.7 and the Coumadin is on hold for now. Cultures of been all negative thus far. The patient has severe cardiomyopathy with an ejection fraction which is less than 25%. The patient also has dilatation of the RV which is severe and mild LA dilatation with a pulmonary artery pressure of around 28. He is on no pressors and he is holding his own blood pressure for now. Is awake and alert and following commands and answering questions appropriately. Patient was reevaluated today on 06/09/19, remains in the ICU, on 7 L high flow nasal cannula. He is also on Cardizem at 5 mg per hour. Patient is doing well, denies any shortness of breath, chest x-ray continues to show evidence of interstitial edema. Patient remains in atrial fibrillation but his rate seems to be fairly well controlled. Remains on Cardizem at 5 mg per hour. Patient remains on antibiotics for cellulitis of the lower extremities. And he is being treated for amiodarone induced ALLERGIC dermatitis. Labs showed relatively normal CBC. INR remains elevated and Coumadin is presently on hold. Electrolytes are normal, BUN is 60 creatinine is improving 1.92 compared to 2.03 yesterday. Transaminases are improving. Patient is hemodynamically stable, not requiring any pressors, hence once he is off Cardizem which could potentially consider transferring the patient to a monitor bed on selective. Objective - Vital Signs Vital signs: Vital Signs Temp 97.9 F 06/09/19 08:00 Pulse 78 06/09/19 09:00 Resp 17 06/09/19 09:00 BP 122/99 06/09/19 09:00 Pulse Ox 93 L 06/09/19 09:00 Intake & Output 06/08/19 06/09/19 06/09/19 18:59 06:59 18:59 Intake Total 940 1336.25 80 Output Total 1120 620 350 Balance -180 716.25 -270 Weight 155.5 kg Intake: IV 240 240 80 0.9 240 240 80 Intake, IV Titration 100 96.25 Amount Clindamycin 600 mg In 50 Dextrose 5% in Water 50 ml @ 50 mls/hr IVPB Q8HR [facility] Rx#:[id number] Clindamycin 900 mg In 50 Dextrose 5% in Water 50 ml @ 50 mls/hr IVPB Q8HR [facility] Rx#:[id number] Diltiazem 125 mg In 96.25 Sodium Chloride 0.9% 100 ml @ 5 MG/HR 5 mls/hr IV .Q24H [facility] Rx#:[id number] Oral 600 1000 Output: Urine 1120 620 350 Other: Voiding Method Indwelling Catheter Indwelling Catheter Indwelling Catheter - Exam GENERAL EXAM: Revealed 63-year-old white male, obese, on high flow nasal cannula at 7 L/m. HEENT: PERRLA, EOMI, no icterus, short obese neck, no neck masses, no JVD, throat is clear. CHEST: No chest wall deformity. Symmetrical expansion. LUNGS: Symmetrical chest expansion, diminished breath sounds and crackles at the bases. CVS: Irregular rate and rhythm, distant S1 and S2, no gallops, no murmurs, no rubs, rate is better controlled with the control of atrial fibrillation ABDOMEN: Obese, soft, nontender, no megaly, no rebound, no guarding. EXTREMITIES: No clubbing, extensive edema involving bilateral lower extremities with cellulitis redness and tenderness left greater than right, onychomycosis, dry cracked skin on bilateral soles, no cyanosis, 1+ pulses and upper and lower extremities. MUSCULOSKELETAL: Muscle strength and tone normal. SPINE: No scoliosis or deformity SKIN: Generalized macular rash on lower extremities. CENTRAL NERVOUS SYSTEM: Alert and oriented 3, no gross focal neurologic deficits. PSYCHIATRIC: Normal mood, affect and normal mental status examination - Labs CBC & Chem 7: 06/09/19 05:10 06/09/19 05:10 Labs: Abnormal Lab Results - Last 24 Hours (Table) 06/09/19 06/09/19 06/09/19 Range/Units 05:10 05:10 05:10 Plt Count 102 L (150-450) k/uL Lymphocytes # (Manual) 0.16 L (1.0-4.8) k/uL PT 66.3 H (9.0-12.0) sec INR 6.5 H* (<1.2) Sodium 136 L (137-145) mmol/L BUN 60 H (9-20) mg/dL Creatinine 1.92 H (0.66-1.25) mg/dL Glucose 134 H (74-99) mg/dL Total Bilirubin 3.1 H (0.2-1.3) mg/dL AST 188 H (17-59) U/L ALT 123 H (4-49) U/L Microbiology - Last 24 Hours (Table) 03/12/20 19:46 Blood Culture - Preliminary Blood No Growth after 72 hours Assessment and Plan Assessment: Impression: Acute hypoxic respiratory failure secondary to acute exacerbation of systolic congestive heart failure. Bilateral lower extremity cellulitis Acute ALLERGIC dermatitis, may be related to antibiotics, or possibly amiodarone related. Acute on chronic kidney disease, improving. Likely cardiorenal in nature. benign essential hypertension coronary artery disease with ischemic cardiomyopathy and LV dysfunction and ejection fraction of 25% and evidence of pulmonary hypertension Chronic atrial fibrillation remains on Cardizem drip. Hypothyroidism presently under control. Chronic venous stasis and cellulitis involving lower extremities. Morbid obesity. Recommendation: Continue high flow nasal cannula and titrate accordingly. Continue antibiotics. Presently on clindamycin, mostly because of possible reaction to penicillin or cephalosporins. Continue Lasix. He is presently on 40 mg IV push every 12 hours. Continue to monitor renal profile. Continue to monitor PT and INR. BiPAP as needed. Continue to monitor in the ICU as long as he is on Cardizem drip. Consider transfer to a cardiac floor once he is off Cardizem. We'll continue to follow. Time with Patient: Less than 30
--- NOTE | 2019-06-09 11:24 | PN ---
PROGRESS NOTE This patient's electronic medical records reviewed. Please review the patient's charts for further details/ Vital signs and lab tests reviewed. The patient has a dilated cardiomyopathy, congestive heart failure and cellulitis. At present, patient is still fluid overloaded. There is a 2+ pedal edema and chest x-ray shows congestive heart failure. Blood pressure is 115/99 mmHg. First and second heart sounds are heard. Lungs are clear to auscultation and percussion with bilateral wheezing noted. Patient's heart rate remains under better control. We will discontinue Cardizem drip and start the patient on a small dose of Lopressor 12.5 mg q.8 hourly and gradually increase as the patient tolerates. Patient's creatinine is stable. Zaroxolyn 5 mg is added. MMODL / IJN: [id number] /
[2019-06-09 14:22] VITALS: BMI 50.6
--- NOTE | 2019-06-09 14:45 | CDI ---
Documentation Clarification Form Date: 06/09/2019 02:03:14 PM From: Beth Alanis RN, CCDS Admit Date: 06/05/2019 07:59:00 PM Patient Name: Omid López Visit Number: [id number] Discharge Date: ATTENTION: The Clinical Documentation Specialists (CDI) and [facility] Coding Staff appreciate your assistance in clarifying documentation. Please respond to the clarification below the line at the bottom and electronically sign. The CDI & [facility] Coding staff will review the response and follow-up if needed. Please note: Queries are made part of the Legal Health Record. If you have any questions, please contact the author of this message via ITS. Dr. Carter Marte The diagnosis of sepsis was documented in the ED assessment, but is not noted in subsequent documentation, further clarification is requested to rule sepsis in or rule it out. History/Risk Factors: Bilateral extremity venous insufficiency/chronic venous stasis, past cellulitis bilateral lower legs. Clinical Indicators: 63-year-old male present to ED with dyspnea. He was also complaining of left lower extremity is red and painful. 06/04 skin assessment: Bilateral external swelling, severe swelling pitting edema and erythema to the left distal lower extremity. 06/04 WBC 19.8, Neutrophils 18.2, Creatinine 2.12, Lactic acid 4.4, 3.; UA Ur moderate Leukocyte Esterase, WBC 19, Urine bacteria few 06/04 Vital signs: 83/38 72 22 95 % Ra 06/04 Blood culture: negative Urine culture negative 06/05 Consult ID (Dr. Castillo) extensive left lower extremity cellulitis in this patient who have diffuse swelling redness" Treatment: Monitor CBC, VS, Clindamycin 900 mg IV Q8hrs Silvadene with Kerlix and Hermes wrap Please clarify if the sepsis was: Present/active this admission Treated and resolved this admission Ruled out Other, please specify Clinically unable to determine (Last Query Form Revision: November 2018) Possible sepsis from left lower extremity cellulitis, POA TREMAINED
--- NOTE | 2019-06-09 20:07 | PN ---
PROGRESS NOTE DATE OF SERVICE: 06/09/2019 REASON FOR FOLLOWUP: Left lower extremity cellulitis. INTERVAL HISTORY: The patient is currently afebrile, has been breathing comfortably. Denies any chest pain. Occasional cough. No abdominal pain. No pain to the left leg. PHYSICAL EXAMINATION: Blood pressure 143/100 with a pulse of 97, temperature 98. He is 90% on high-flow oxygen. General description is a middle aged male lying in bed in no distress. Respiratory system: Unlabored breathing. Decreased breath sounds in the bases. No wheeze. Heart S1, S2. Regular rate and rhythm. ABDOMEN: Soft, no tenderness. Left leg with swelling and redness slightly decreased. LABS: Hemoglobin 13.4, white count 8.0, BUN of 16, creatinine 1.92. DIAGNOSTIC IMPRESSION AND PLAN: 1. Patient is admitted to the hospital with left lower extremity cellulitis in this patient who has diffuse swelling and redness, likely streptococcal cellulitis in this patient who did have ALLERGY TO AMPICILLIN AND RASH TO CEPHAZOLIN. Currently on clindamycin with plan to finish a short course or oral Clinda. 2. local care to continue over the next and monitor clinical course closely. MMODL / IJN: [id number] /
[2019-06-10] MEDS: CLINDAMYCIN 900 MG in DEXTROSE 5% IN WATER 50 ML IVPB SCH ×8 (00:03→22:38)
[2019-06-10 04:33] LABS: Basophils % (A) 0 %; Eosinophils # (A) 0.1 k/uL (0-0.7); Eosinophils % (A) 1 %; HCT 42.4 % (39.0-53.0); HGB 13.6 gm/dL (13.0-17.5); Lymphocytes # (A) 0.1 k/uL (1.0-4.8); Lymphocytes % (A) 1 %; MCH 30.3 pg (25.0-35.0); MCHC 32.2 g/dL (31.0-37.0); MCV 94.1 fL (80.0-100.0); Mean Platelet Volume 15.3; Monocytes # (A) 0.6 k/uL (0-1.0); Monocytes % (A) 6 %; Neutrophils # (A) 7.6 k/uL (1.3-7.7); Neutrophils % (A) 88 %; Platelet Count 101 k/uL (150-450); RDW 15.5 % (11.5-15.5); WBC 8.6 k/uL (3.8-10.6)
[2019-06-10 04:42] LABS: Albumin 3.3 g/dL (3.5-5.0); Calcium 8.9 mg/dL (8.4-10.2); Potassium 3.5 mmol/L (3.5-5.1); Total Bilirubin 2.5 mg/dL (0.2-1.3); Total Protein 6.3 g/dL (6.3-8.2)
[2019-06-10] MEDS ORDERED: POTASSIUM CHLORIDE 20 MEQ in WATER FOR INJECTION 1 100ML.BAG IVPB SCH (05:15)
[2019-06-10] MEDS ORDERED: Potassium Replacement Protocol 1 EACH MISC MISCELLANE PRN (05:15)
[2019-06-10] MEDS: POTASSIUM CHLORIDE ER 20 MEQ TAB.ER PO SCH ×2 (05:33→06:18)
[2019-06-10] MEDS: LEVOTHYROXINE 25 MCG TAB PO SCH (05:33)
[2019-06-10 05:36] LABS: Prothrombin Time 61.1 sec (9.0-12.0)
[2019-06-10] MEDS: METOPROLOL TARTRATE 12.5 MG TAB PO SCH ×3 (07:56→20:05)
[2019-06-10] MEDS: FUROSEMIDE 10 MG/ML 10 ML VIAL IV SCH ×2 (07:56→20:05)
[2019-06-10] MEDS: NYSTATIN 100,000 UNIT/GM POWD 15 GM TOPICAL SCH ×2 (07:59→20:05)
[2019-06-10] MEDS: METOLAZONE 2.5 MG TAB PO SCH (08:00)
--- NOTE | 2019-06-10 08:15 | XR ---
EXAMINATION TYPE: XR chest 1V DATE OF EXAM: 06/10/2019 COMPARISON: 06/09/2019 HISTORY: Shortness of breath TECHNIQUE: Single frontal view of the chest is obtained. FINDINGS: Mild pulmonary vascular congestion throughout remains similar the prior. Persistent enlarg ed cardiac mediastinal silhouette. Unchanged positioning of the left-sided internal jugular central v enous catheter. No new focal consolidation or pneumothorax. IMPRESSION: Persistent fluid overload, likely on a cardiogenic basis with mild pulmonary vascular co ngestion throughout.
--- NOTE | 2019-06-10 08:46 | P.PN ---
Subjective Patient is seen in follow-up for acute kidney injury on chronic kidney disease. Renal function is slightly better. Denies chest pain or shortness of breath. Cardizem drip has been discontinued. Nonoliguric. No vomiting or diarrhea. Vital signs are stable. General: The patient appeared well nourished and normally developed. HEENT: Head exam is unremarkable. Neck is without jugular venous distension. LUNGS: Breath sounds decreased. HEART: Irregular rate and rhythm. ABDOMEN: Abdominal exam reveals normal bowel sounds. Non-tender and non- distended. No evidence of peritonitis. EXTREMITITES: 1+ edema. Erythema noted. No drainage. Objective - Vital Signs Vital signs: Vital Signs Temp 97.9 F 06/10/19 04:00 Pulse 74 06/10/19 07:00 Resp 13 06/10/19 07:00 BP 119/64 06/10/19 07:00 Pulse Ox 97 06/10/19 07:00 Intake & Output 06/09/19 06/10/19 06/10/19 18:59 06:59 18:59 Intake Total 779.139 6465 650 Output Total 1150 1545 450 Balance -849.833 105 200 Weight 155.5 kg 157.1 kg Intake: IV 240 10 0.9 240 10 Intake, IV Titration 60.167 Amount Diltiazem 125 mg In 60.167 Sodium Chloride 0.9% 100 ml @ 5 MG/HR 5 mls/hr IV .Q24H [facility] Rx#:[id number] Oral 1640 650 Output: Urine 1150 1545 450 Other: Voiding Method Indwelling Catheter Indwelling Catheter Indwelling Catheter - Labs CBC & Chem 7: 06/10/19 04:20 06/10/19 04:20 Labs: Abnormal Lab Results - Last 24 Hours (Table) 06/10/19 06/10/19 06/10/19 Range/Units 04:20 04:20 05:10 Plt Count 101 L (150-450) k/uL Lymphocytes # 0.1 L (1.0-4.8) k/uL PT 61.1 H (9.0-12.0) sec INR 6.0 H* (<1.2) Sodium 135 L (137-145) mmol/L Chloride 97 L (98-107) mmol/L BUN 63 H (9-20) mg/dL Creatinine 1.82 H (0.66-1.25) mg/dL Glucose 104 H (74-99) mg/dL Total Bilirubin 2.5 H (0.2-1.3) mg/dL AST 124 H (17-59) U/L ALT 114 H (4-49) U/L Albumin 3.3 L (3.5-5.0) g/dL Microbiology - Last 24 Hours (Table) 06/05/19 19:46 Blood Culture - Preliminary Blood No Growth after 96 hours Assessment and Plan Plan: Assessment: 1. Acute kidney injury secondary to ATN secondary to cardiorenal syndrome. Renal function a little better. Creatinine 1.82 today. No proteinuria on UA. Urine eosinophils negative. 2. A. fib with RVR maintained on Lopressor. 3. Acute on chronic systolic CHF with ejection fraction of 20-25%. 4. Volume overload. Improving with diuresis. 5. Chronic kidney disease stage III with baseline creatinine 1.5-1.7. 6. Hypokalemia secondary to diuresis. Replace. Plan: Continue Lasix 60 mg IV twice daily. Maintain metolazone 2.5 mg once daily. Continue to monitor renal function and urine output. Avoid nephrotoxins.
--- NOTE | 2019-06-10 11:13 | P.PN ---
Subjective Progress Note Date: 06/10/19 Principal diagnosis: Acute hypoxic respiratory failure secondary to acute exacerbation of systolic congestive heart failure. 63-year-old male patient with past medical history of chronic congestive heart failure, atrial fibrillation on Coumadin, cardiomyopathy with EF of less than 20%, will hypertension, with right-sided pressures of 41 mmHg , mild MR, mild TR, severe enlargement of the right ventricle, and moderately enlarged left atrium was noted on previous echocardiogram from December 2018. Other medical history includes morbid obesity, coronary artery disease, hypertension, hyperlipidemia, previous myocardial infarction, chronic kidney disease stage III, hypothyroidism, previous episodes of pneumonia, chronic venous stasis and previous episodes of cellulitis involving bilateral lower extremities. Patient is a lifetime nonsmoker, no history of chronic lung disease, he is not on home oxygen or CPAP device at home. Patient presented to the emergency department on 06/05/2019 at 1627 per EMS for evaluation of increasing shortness of breath, and concern for possibility of ST elevated ID, as per EKG performed by the EMS staff. In addition patient noted increasing lower extremity pain, redness, and swelling, his shortness of breath has been progressive over a period of 2 weeks, he has been orthopneic. Denied any fever or chills, denied any cough or c ongestion, denied chest pain. On arrival to the emergency department EKG was taken showing atrial fibrillation with left bundle branch block pattern that was unchanged from his most recent EKG. Patient was significantly dyspneic on presentation, lab work showed leukocytosis with a white blood cell count of 19.8, significantly reddened and painful and swollen lower extremities, left greater than right, increased neutrophils on the differential, metabolic panel showed mild anion gap acidosis, and lactic acidosis of 4.4, BUN of 42, and creatinine of 2.12, troponin was 0.052, and proBNP level of 25,000. D-dimer was negative at 0.19. Chest x-ray showed interstitial phase pulmonary edema, marke dly enlarged cardiac silhouette. Left lower extremity x-ray was completed showing extensive foot and ankle soft tissue swelling, osteopenic metatarsal heads. Patient was placed on BiPAP support for worsening dyspnea, with pressures of 14/7, and FiO2 of 100%, started on IV diuretics and was given cefepime and vancomycin. Patient states he developed a generalized rash on chest, abdomen, and back. He states the rash on his chest is not itchy, however it is itchy on his back On today's evaluation of 06/07/2019 the patient is being seen for a follow-up. The patient is being treated for several episodes of the lower extremity. The patient was in volume overload and the patient was started on Lasix drip. Nevertheless, this morning, the blood pressure dropped and the patient went into atrial fibrillation with rapid ventricular response. His heart rate went up to the 130s to 140s range and the patient became also hypotensive. The patient was given amiodarone loading and he'll be started on maintenance. Most recent blood pressures the mid 90s. I have stopped his Lasix drip. A triple lumen catheter was established. The patient is producing adequate amount of urine output for n ow. No altered mentation. No cough or sputum production. No fever or chills. The white cell count is at 10.2. INR is at 2.0. Creatinine is down to 1.86. BUN of 44. Lactic acid level is down to 2.4. On 06/08/2019, the patient has laying comfortably in bed. The patient is on oxygen at high flow at 10 L per minute nasal cannula with a pulse ox ranging between 91 and 94%. No signs of any respiratory distress. Chest x-ray showed cardiomegaly and some diffuse interstitial pattern related to interstitial edema and findings are essentially consistent with CHF. Note that yesterday, the pat ient went into atrial fibrillation with rapid ventricular response. Initially was placed on amiodarone. Later on the patient developed a reaction where he became flushed and diaphoretic and itching and he also developed a rash. I was not informed of this. He was taken off the antibiotics and amiodarone by the primary care team. Currently the patient is on Cardizem drip for rate control which is running at the rate of 5 mg an hour. Heart rate is under better control. Meanwhile he was taken off the cephalosporin. I think it's reasonable to continue the clindamycin for now specially the patient is an active Celexa the left lower extremity and the area still warm and erythematous and hot. The white cell count is at 7.8. The patient is on no pressors. INR is at 4.7 and the Coumadin is on hold for now. Cultures of been all negative thus far. The patient has severe cardiomyopathy with an ejection fraction which is less than 25%. The patient also has dilatation of the RV which is severe and mild LA dilatation with a pulmonary artery pressure of around 28. He is on no pressors and he is holding his own blood pressure for now. Is awake and alert and following commands and answering questions appropriately. Patient was reevaluated today on 06/09/19, remains in the ICU, on 7 L high flow nasal cannula. He is also on Cardizem at 5 mg per hour. Patient is doing well, denies any shortness of breath, chest x-ray continues to show evidence of interstitial edema. Patient remains in atrial fibrillation but his rate seems to be fairly well controlled. Remains on Cardizem at 5 mg per hour. Patient remains on antibiotics for cellulitis of the lower extremities. And he is being treated for amiodarone induced ALLERGIC dermatitis. Labs showed relatively normal CBC. INR remains elevated and Coumadin is presently on hold. Electrolytes are normal, BUN is 60 creatinine is improving 1.92 compared to 2.03 yesterday. Transaminases are improving. Patient is hemodynamically stable, not requiring any pressors, hence once he is off Cardizem which could potentially consider transferring the patient to a monitor bed on selective. Reevaluated today on 06/10/19, remains in the ICU, however he is off Cardizem drip, patient is feeling better, breathing much easier, chest x-ray is showing improvement. Patient remains on diuretics and antibiotics. His rate seems to be well-controlled. And his cellulitis is steadily improving. Hence I plan to transfer the patient out of the ICU to a cardiac floor. With telemetry. Objective - Vital Signs Vital signs: Vital Signs Temp 98.0 F 06/10/19 08:00 Pulse 85 06/10/19 09:00 Resp 15 06/10/19 09:00 BP 119/64 06/10/19 09:00 Pulse Ox 95 06/10/19 08:00 Intake & Output 06/09/19 06/10/19 06/10/19 18:59 06:59 18:59 Intake Total 388.976 0364 700 Output Total 1150 1545 1000 Balance -849.833 105 -300 Weight 155.5 kg 157.1 kg Intake: IV 240 10 0.9 240 10 Intake, IV Titration 60.167 50 Amount Clindamycin 900 mg In 50 Dextrose 5% in Water 50 ml @ 50 mls/hr IVPB Q8HR [facility] Rx#:[id number] Diltiazem 125 mg In 60.167 Sodium Chloride 0.9% 100 ml @ 5 MG/HR 5 mls/hr IV .Q24H [facility] Rx#:[id number] Oral 1640 650 Output: Urine 1150 1545 1000 Other: Voiding Method Indwelling Catheter Indwelling Catheter Indwelling Catheter - Exam GENERAL EXAM: Revealed 63-year-old white male, obese, in no distress. HEENT: PERRLA, EOMI, no icterus, short obese neck, no neck masses, no JVD, throat is clear. CHEST: No chest wall deformity. Symmetrical expansion. LUNGS: Symmetrical chest expansion, diminished breath sounds and crackles at the bases. CVS: Irregular rate and rhythm, distant S1 and S2, no gallops, no murmurs, no rubs, rate is better controlled with the control of atrial fibrillation ABDOMEN: Obese, soft, nontender, no megaly, no rebound, no guarding. Positive small umbilical hernia. EXTREMITIES: No clubbing, extensive edema involving bilateral lower extremities with cellulitis redness and tenderness left greater than right, onychomycosis, dry cracked skin on bilateral soles, no cyanosis, 1+ pulses and upper and lower extremities. MUSCULOSKELETAL: Muscle strength and tone normal. SPINE: No scoliosis or deformity SKIN: Generalized macular rash on lower extremities. CENTRAL NERVOUS SYSTEM: Alert and oriented 3, no gross focal neurologic deficits. PSYCHIATRIC: Normal mood, affect and normal mental status examination - Labs CBC & Chem 7: 06/10/19 04:20 06/10/19 04:20 Labs: Abnormal Lab Results - Last 24 Hours (Table) 06/10/19 06/10/19 06/10/19 Range/Units 04:20 04:20 05:10 Plt Count 101 L (150-450) k/uL Lymphocytes # 0.1 L (1.0-4.8) k/uL PT 61.1 H (9.0-12.0) sec INR 6.0 H* (<1.2) Sodium 135 L (137-145) mmol/L Chloride 97 L (98-107) mmol/L BUN 63 H (9-20) mg/dL Creatinine 1.82 H (0.66-1.25) mg/dL Glucose 104 H (74-99) mg/dL Total Bilirubin 2.5 H (0.2-1.3) mg/dL AST 124 H (17-59) U/L ALT 114 H (4-49) U/L Albumin 3.3 L (3.5-5.0) g/dL Microbiology - Last 24 Hours (Table) 06/05/19 19:46 Blood Culture - Preliminary Blood No Growth after 96 hours Assessment and Plan Assessment: Impression: Acute hypoxic respiratory failure secondary to acute exacerbation of systolic congestive heart failure. Bilateral lower extremity cellulitis Acute ALLERGIC dermatitis, may be related to antibiotics, or possibly amiodarone related. Acute on chronic kidney disease, improving. Likely cardiorenal in nature. benign essential hypertension coronary artery disease with ischemic cardiomyopathy and LV dysfunction and ejection fraction of 25% and evidence of pulmonary hypertension Chronic atrial fibrillation, on oral meds, off Cardizem drip. Hypothyroidism, on replacement therapy. Chronic venous stasis and cellulitis involving lower extremities. Morbid obesity. Recommendation: Continue high flow nasal cannula and titrate accordingly. Continue antibiotics. As per infectious disease on the case. Continue Lasix. He is presently on 40 mg IV push every 12 hours. Continue to monitor PT and INR. BiPAP as needed. Especially at night. Transfer patient today to a cardiac floor with telemetry. We'll continue to follow. Time with Patient: Less than 30
--- NOTE | 2019-06-10 19:45 | PN ---
PROGRESS NOTE This patient's electronic medical records reviewed. This patient has a dilated cardiomyopathy and atrial fibrillation, congestive heart failure and cellulitis. The patient seems to be improving gradually. He is comfortable. No respiratory distress is noted. Patient is off the Cardizem drip. His heart rate now is 70-90 per minute. Blood pressure is 119/64 mmHg. First and second heart sounds are normal. Lungs are fairly clear to auscultation and percussion. Patient's abnormal liver function tests were due to most likely liver congestion which are gradually improving. However, INR still remains high. We will continue the patient on the current dose of diuretics. His creatinine is 1.82 today. MMODL / IJN: [id number] /
--- NOTE | 2019-06-10 22:49 | PN ---
PROGRESS NOTE DATE OF SERVICE: 06/10/2019 REASON FOR FOLLOWUP: Left lower extremity cellulitis . INTERVAL HISTORY: The patient is currently afebrile, has been breathing comfortably. Denies any chest pain, shortness of breath. No cough. No nausea, no vomiting. No abdominal pain or pain to the left leg. PHYSICAL EXAMINATION: Blood pressure 146/88 with a pulse of 77. Temperature 97.7. He is 97% on 6 L nasal cannula. General description is a middle-aged male lying in bed in no distress. Respiratory system: Unlabored breathing. Decreased breath sounds in the bases. No wheeze. Heart S1, S2. Regular rate and rhythm. Abdomen soft, no tenderness. LEG: Left leg swelling and redness persists, numbness decreased in intensity. LABS: Hemoglobin 13.1, white count 8.6, BUN of 16, creatinine 1.82. DIAGNOSTIC IMPRESSION AND PLAN: 1. Patient with acute left lower extremity cellulitis in this patient who did have multiple antibiotic allergies. The patient at this time to continue on clindamycin, transition to a short course of oral antibiotics on discharge. 2. Patient with Athlete's foot to continue with powder twice a day for another week. Continue supportive care. MMODL / IJN: [id number] /
--- NOTE | 2019-06-11 02:04 | P.PN ---
Subjective Progress Note Date: 06/09/19 Principal diagnosis: Acute CHF exacerbation This is a 63-year-old patient of Dr. Hall. Patient was in the hospital early January 2019. Patient admitted with a diagnosis of CHF EF of 20-25%, atrial flutter fibrillation, acute ischemic hepatitis from hypertension, and acute left lower extremity cellulitis. Also had acute renal failure. Patient now presents with worsening short of breath. [place] to be in CHF exacerbation. Put on a Lasix drip. Patient has some chronic swelling of the left lower extremity. On BiPAP. Admitted to ICU. Rather tired to give any further history. Also redness of the left lower extremity. Some of which is known to be chronic. Started her antibiotics. Review of systems cannot be done as patient rather lethargic. Past medical history to include: CHF EF 20-25%, atrial flutter fibrillation, left bundle-branch block, morbid obesity, left lower external recent mellitus, hyperlipidemia, hypertension, chronic kidney disease stage III, bilateral lower extremity venous insufficiency. INVESTIGATIONS, reviewed in the clinical context: White count 19.8 hemoglobin 13.6 platelets 126 Sodium 135 potassium 4.9 bun 42 creatinine 2.12 EKG tracing personally reviewed by me-left bundle-branch block possible atrial fibrillation Chest x-ray film personally reviewed by me-cardiomegaly with venous prominence Troponin I 0.052, 0.080 06/07/2019 Patient is currently in the MICU. Currently being treated for acute on chronic CHF. Still having bilateral lower activity swelling and redness of the left lower extremity. Currently being continued on IV Lasix. Patient went into A. fib with RVR and is currently on amiodarone drip. Patient is also hypotensive. Currently being continued on IV antibiotics as per ID recommendations. Renal function slightly improved with creatinine level I.86 Patient is complaining of itching and rash on his back which has been present prior to admission. Pulmonary, ID and nephrology is following. June 08 2019 Patient is currently lying in the bed comfortably. Awake alert and oriented. Breathing status is slightly better still requiring high flow oxygen at 10 L via nasal cannula. On Lasix drip due to acute on chronic CHF with systolic dysfunction ejection fraction 25%. Currently being continued on antibiotics in the form of IV clindamycin. Last night patient was complaining of worsening itching and rash on his back. Cefazolin was on hold due to possible ALLERGIC reaction. ID is following. Otherwise left lower extremity redness and swelling is improved compared to yesterday. Chest x-ray showed diffuse interstitial pattern with left-sided consolidation correlate for CHF. INR is 4.7 today. WBC 7.8. Urine culture and blood cultures negative so far. Creatinine level slightly increased to 2.03 and BUN 53 AST 204, ALT 100 06/09/2019 Patient is currently in the MICU. Still having shortness of breath and significant leg swelling. Left lower extremity redness is improving. Patient is being continued on clindamycin IV. Heart rate is controlled and Cardizem drip is being tapered down. Patient remains in atrial fibrillation. Chest x-ray showed interstitial edema. Patient is on IV Lasix. INR level is elevated and Coumadin is on hold. Creatinine level is 1.92 today. Improved compared to yesterday. Liver enzymes are improving. Patient has been afebrile. Current medications reviewed. Objective - Vital Signs Vital signs: Vital Signs Temp 97.9 F 06/09/19 12:00 Pulse 101 H 06/09/19 12:00 Resp 12 06/09/19 12:00 BP 130/103 06/09/19 12:00 Pulse Ox 92 L 06/09/19 12:00 Intake & Output 06/08/19 06/09/19 06/09/19 18:59 06:59 18:59 Intake Total 940 1336.25 180.167 Output Total 1120 620 550 Balance -180 716.25 -369.833 Weight 155.5 kg Intake: IV 240 240 120 0.9 240 240 120 Intake, IV Titration 100 96.25 60.167 Amount Clindamycin 600 mg In 50 Dextrose 5% in Water 50 ml @ 50 mls/hr IVPB Q8HR [facility] Rx#:[id number] Clindamycin 900 mg In 50 Dextrose 5% in Water 50 ml @ 50 mls/hr IVPB Q8HR [facility] Rx#:[id number] Diltiazem 125 mg In 96.25 60.167 Sodium Chloride 0.9% 100 ml @ 5 MG/HR 5 mls/hr IV .Q24H [facility] Rx#:[id number] Oral 600 1000 Output: Urine 1120 620 550 Other: Voiding Method Indwelling Catheter Indwelling Catheter Indwelling Catheter - Exam GENERAL: BMI 40.7, laying in bed , on high flow oxygen. EYES: Pupils equal. Conjunctiva normal. HEENT: External appearance of nose and ears normal, oral cavity grossly normal. NECK: JVD unable to assess; masses not palpable. HEART: Heart sounds regular; edema present. LUNGS: Respiratory rate increased, diminished breath sounds bilaterally speak in full sentences. ABDOMEN: Soft, nontender, liver spleen not palpable, no masses palpable. PSYCH: [Unable to assess patient rather lethargic l. NEUROLOGICAL: [Cranial nerves grossly intact; no facial asymmetry, moving all his limbs EXTREMITIES: Left leg is enlarged compared to the right with some redness swelling from below the knee going down to the foot. LYMPHATICS: No lymph nodes palpable in the axilla and neck - Labs CBC & Chem 7: 06/10/19 04:20 06/10/19 04:20 Labs: Abnormal Lab Results - Last 24 Hours (Table) 06/09/19 06/09/19 06/09/19 Range/Units 05:10 05:10 05:10 Plt Count 102 L (150-450) k/uL Lymphocytes # (Manual) 0.16 L (1.0-4.8) k/uL PT 66.3 H (9.0-12.0) sec INR 6.5 H* (<1.2) Sodium 136 L (137-145) mmol/L BUN 60 H (9-20) mg/dL Creatinine 1.92 H (0.66-1.25) mg/dL Glucose 134 H (74-99) mg/dL Total Bilirubin 3.1 H (0.2-1.3) mg/dL AST 188 H (17-59) U/L ALT 123 H (4-49) U/L Microbiology - Last 24 Hours (Table) 06/05/19 19:46 Blood Culture - Preliminary Blood No Growth after 72 hours Assessment and Plan Assessment: Assessment: -Acute on chronic congestive heart failure exacerbation from diastolic and systolic dysfunction EF 20-25%, decompensated, -Persistent atrial fibrillation/flutter with RVR. -Left bundle-branch block -Morbid obesity BMI 52.3 -Acute left lower extremity cellulitis -Hyperlipidemia -Essential hypertension -Chronic kidney disease stage III from nephrosclerosis at her baseline -Acute kidney injury, likely prerenal from cardiorenal syndrome, -Bilateral lower extremity venous insufficiency and chronic venous stasis -Troponin leak from chronic kidney disease, no evidence of acute coronary syndrome -Coumadin monitoring -Hypothyroid -Mild transaminitis. Improving. Plan: Patient is in the ICU. was On IV Lasix drip. Changed to Lasix IV 40 twice a day. Strict I's and O's. Patient's IV clindamycin. Patient is being followed by cardiology, pulmonary. Also nephrology and ID. Continued On Silvadene with Kerlix and Hermes wrap. Time with Patient: Greater than 30
--- NOTE | 2019-06-11 02:07 | P.PN ---
Subjective Progress Note Date: 06/10/19 Principal diagnosis: Acute CHF exacerbation This is a 63-year-old patient of Dr. Hall. Patient was in the hospital early January 2019. Patient admitted with a diagnosis of CHF EF of 20-25%, atrial flutter fibrillation, acute ischemic hepatitis from hypertension, and acute left lower extremity cellulitis. Also had acute renal failure. Patient now presents with worsening short of breath. Gunter to be in CHF exacerbation. Put on a Lasix drip. Patient has some chronic swelling of the left lower extremity. On BiPAP. Admitted to ICU. Rather tired to give any further history. Also redness of the left lower extremity. Some of which is known to be chronic. Started her antibiotics. Review of systems cannot be done as patient rather lethargic. Past medical history to include: CHF EF 20-25%, atrial flutter fibrillation, left bundle-branch block, morbid obesity, left lower external recent mellitus, hyperlipidemia, hypertension, chronic kidney disease stage III, bilateral lower extremity venous insufficiency. INVESTIGATIONS, reviewed in the clinical context: White count 19.8 hemoglobin 13.6 platelets 126 Sodium 135 potassium 4.9 bun 42 creatinine 2.12 EKG tracing personally reviewed by me-left bundle-branch block possible atrial fibrillation Chest x-ray film personally reviewed by me-cardiomegaly with venous prominence Troponin I 0.052, 0.080 06/07/2019 Patient is currently in the MICU. Currently being treated for acute on chronic CHF. Still having bilateral lower activity swelling and redness of the left lower extremity. Currently being continued on IV Lasix. Patient went into A. fib with RVR and is currently on amiodarone drip. Patient is also hypotensive. Currently being continued on IV antibiotics as per ID recommendations. Renal function slightly improved with creatinine level I.86 Patient is complaining of itching and rash on his back which has been present prior to admission. Pulmonary, ID and nephrology is following. June 08 2019 Patient is currently lying in the bed comfortably. Awake alert and oriented. Breathing status is slightly better still requiring high flow oxygen at 10 L via nasal cannula. On Lasix drip due to acute on chronic CHF with systolic dysfunction ejection fraction 25%. Currently being continued on antibiotics in the form of IV clindamycin. Last night patient was complaining of worsening itching and rash on his back. Cefazolin was on hold due to possible ALLERGIC reaction. ID is following. Otherwise left lower extremity redness and swelling is improved compared to yesterday. Chest x-ray showed diffuse interstitial pattern with left-sided consolidation correlate for CHF. INR is 4.7 today. WBC 7.8. Urine culture and blood cultures negative so far. Creatinine level slightly increased to 2.03 and BUN 53 AST 204, ALT 100 06/09/2019 Patient is currently in the MICU. Still having shortness of breath and significant leg swelling. Left lower extremity redness is improving. Patient is being continued on clindamycin IV. Heart rate is controlled and Cardizem drip is being tapered down. Patient remains in atrial fibrillation. Chest x-ray showed interstitial edema. Patient is on IV Lasix. INR level is elevated and Coumadin is on hold. Creatinine level is 1.92 today. Improved compared to yesterday. Liver enzymes are improving. Patient has been afebrile. 06/10/2019 Patient is currently lying in the bed comfortably. Saturating on oxygen when nausea cannula at 4-5L. Denied any worsening shortness of breath or chest pain. Leg swelling is improving as well. Patient is being continued on IV Lasix 60 mg twice daily. Renal function improved with creatinine level I.82 today. Currently being continued on IV clindamycin for leg cellulitis. Patient is off Cardizem drip and was started on metoprolol twice daily. Liver enzymes are trending down. Denied any itching on the back and rash improved. Patient is being transferred to medical floor today. Active Medications Alprazolam (Xanax) 0.25 mg PO BID PRN PRN Reason: Anxiety Last Admin: 06/07/19 22:30 Dose: 0.25 mg Documented by: Diphenhydramine HCl (Benadryl) 25 mg PO TID PRN PRN Reason: Itching Last Admin: 06/07/19 20:03 Dose: 25 mg Documented by: Diphenhydramine HCl (Benadryl) 25 mg IVP Q6HR PRN PRN Reason: Allergy Symptoms Last Admin: 06/08/19 01:05 Dose: 25 mg Documented by: Furosemide (Lasix) 60 mg IV Q12HR RADHA Last Admin: 06/10/19 20:05 Dose: 60 mg Documented by: Hydrocortisone (Hydrocortisone 1% Cream) 1 applic TOPICAL BID PRN PRN Reason: Skin Irritation Clindamycin Phosphate 900 mg/ (Dextrose/Water) 56 mls @ 50 mls/hr IVPB Q8HR [facility] Last Admin: 06/10/19 22:38 Dose: 50 mls/hr Documented by: Levothyroxine Sodium (Synthroid) 25 mcg PO [id number] [facility] Last Admin: 06/10/19 05:33 Dose: 25 mcg Documented by: Metolazone (Zaroxolyn) 2.5 mg PO DAILY [facility] Last Admin: 06/10/19 08:00 Dose: 2.5 mg Documented by: Metoprolol Tartrate (Lopressor) 12.5 mg PO TID [facility] Last Admin: 06/10/19 20:05 Dose: 12.5 mg Documented by: Miscellaneous Information (Potassium Per Protocol) 1 each MISCELLANE DAILY PRN; Protocol PRN Reason: Per Protocol Naloxone HCl (Narcan) 0.2 mg IV Q2M PRN PRN Reason: Opioid Reversal Nystatin (Mycostatin Powder) 1 applic TOPICAL BID [facility] Last Admin: 06/10/19 20:05 Dose: Not Given Documented by: Silver Sulfadiazine (Silvadene Cream) 1 applic TOPICAL BID [facility] Last Admin: 06/10/19 20:05 Dose: Not Given Documented by: Objective - Vital Signs Vital signs: Vital Signs Temp 97.7 F 06/10/19 19:57 Pulse 77 06/10/19 19:57 Resp 18 06/10/19 19:57 BP 146/88 06/10/19 19:57 Pulse Ox 97 06/10/19 19:57 Intake & Output 06/10/19 06/10/19 06/11/19 06:59 18:59 06:59 Intake Total 1650 820 Output Total 1545 2550 Balance 105 -1730 Weight 157.1 kg Intake: IV 10 0.9 10 Intake, IV Titration 50 Amount Clindamycin 900 mg In 50 Dextrose 5% in Water 50 ml @ 50 mls/hr IVPB Q8HR [facility] Rx#:[id number] Oral 1640 770 Output: Urine 1545 2550 Other: Voiding Method Indwelling Catheter Indwelling Catheter Urinal - Exam GENERAL: BMI 40.7, laying in bed , on high flow oxygen. EYES: Pupils equal. Conjunctiva normal. HEENT: External appearance of nose and ears normal, oral cavity grossly normal. NECK: JVD unable to assess; masses not palpable. HEART: Heart sounds regular; edema present. LUNGS: Respiratory rate increased, diminished breath sounds bilaterally speak in full sentences. ABDOMEN: Soft, nontender, liver spleen not palpable, no masses palpable. PSYCH: [Unable to assess patient rather lethargic l. NEUROLOGICAL: [Cranial nerves grossly intact; no facial asymmetry, moving all his limbs EXTREMITIES: Left leg is enlarged compared to the right with some redness swelling from below the knee going down to the foot. LYMPHATICS: No lymph nodes palpable in the axilla and neck - Labs CBC & Chem 7: 06/10/19 04:20 06/10/19 04:20 Labs: Abnormal Lab Results - Last 24 Hours (Table) 06/10/19 06/10/19 06/10/19 Range/Units 04:20 04:20 05:10 Plt Count 101 L (150-450) k/uL Lymphocytes # 0.1 L (1.0-4.8) k/uL PT 61.1 H (9.0-12.0) sec INR 6.0 H* (<1.2) Sodium 135 L (137-145) mmol/L Chloride 97 L (98-107) mmol/L BUN 63 H (9-20) mg/dL Creatinine 1.82 H (0.66-1.25) mg/dL Glucose 104 H (74-99) mg/dL Total Bilirubin 2.5 H (0.2-1.3) mg/dL AST 124 H (17-59) U/L ALT 114 H (4-49) U/L Albumin 3.3 L (3.5-5.0) g/dL Microbiology - Last 24 Hours (Table) 06/05/19 19:46 Blood Culture - Preliminary Blood No Growth after 120 hours Assessment and Plan Assessment: Assessment: -Acute on chronic congestive heart failure exacerbation from diastolic and systolic dysfunction EF 20-25%, decompensated, -Persistent atrial fibrillation/flutter with RVR. -Left bundle-branch block -Morbid obesity BMI 52.3 -Acute left lower extremity cellulitis -Hyperlipidemia -Essential hypertension -Chronic kidney disease stage III from nephrosclerosis at her baseline -Acute kidney injury, likely prerenal from cardiorenal syndrome, -Bilateral lower extremity venous insufficiency and chronic venous stasis -Troponin leak from chronic kidney disease, no evidence of acute coronary syndrome -Coumadin monitoring -Hypothyroid -Mild transaminitis. Improving. Plan: Patient is in the ICU. was On IV Lasix drip. Changed to Lasix IV 60 twice a day. Strict I's and O's. Patient's IV clindamycin. Patient is being followed by cardiology, pulmonary. Also nephrology and ID. Continued On Silvadene with Kerlix and Hermes wrap. Time with Patient: Greater than 30
[2019-06-11] MEDS: LEVOTHYROXINE 25 MCG TAB PO SCH (06:23)
[2019-06-11 06:34] LABS: INR 3.6 (<1.2); Prothrombin Time 34.9 sec (9.0-12.0)
[2019-06-11 07:00] LABS: Albumin 3.6 g/dL (3.5-5.0); Calcium 9.2 mg/dL (8.4-10.2); Magnesium 2.2 mg/dL (1.6-2.3); Potassium 3.4 mmol/L (3.5-5.1); Total Bilirubin 2.4 mg/dL (0.2-1.3); Total Protein 6.7 g/dL (6.3-8.2)
[2019-06-11] MEDS: FUROSEMIDE 10 MG/ML 10 ML VIAL IV SCH ×2 (08:47→20:21)
[2019-06-11] MEDS: METOLAZONE 2.5 MG TAB PO SCH (08:47)
[2019-06-11] MEDS: METOPROLOL TARTRATE 12.5 MG TAB PO SCH (08:47)
[2019-06-11] MEDS: NYSTATIN 100,000 UNIT/GM POWD 15 GM TOPICAL SCH ×2 (08:48→22:22)
[2019-06-11] MEDS ORDERED: POTASSIUM CHLORIDE ER 20 MEQ TAB.ER PO STA (09:29)
--- NOTE | 2019-06-11 10:03 | P.PN ---
Subjective Patient is seen in follow-up for acute kidney injury on chronic kidney disease. Renal function is stable. Denies chest pain or shortness of breath. Nonoliguric. No vomiting or diarrhea. Vital signs are stable. General: The patient appeared well nourished and normally developed. HEENT: Head exam is unremarkable. Neck is without jugular venous distension. LUNGS: Breath sounds decreased. HEART: Irregular rate and rhythm. ABDOMEN: Abdominal exam reveals normal bowel sounds. Non-tender and non- distended. No evidence of peritonitis. EXTREMITITES: 1+ edema. Erythema noted. No drainage. Objective - Vital Signs Vital signs: Vital Signs Temp 97.9 F 06/11/19 04:00 Pulse 84 06/11/19 04:00 Resp 18 06/11/19 04:00 BP 107/66 06/11/19 04:00 Pulse Ox 97 06/10/19 23:37 Intake & Output 06/10/19 06/11/19 06/11/19 18:59 06:59 18:59 Intake Total 820 50 360 Output Total 2550 2250 Balance -1730 -2200 360 Weight 151.6 kg Intake: Intake, IV Titration 50 50 Amount Clindamycin 900 mg In 50 50 Dextrose 5% in Water 50 ml @ 50 mls/hr IVPB Q8HR [facility] Rx#:[id number] Oral 770 360 Output: Urine 2550 2250 Other: Voiding Method Indwelling Catheter Urinal # Voids 1 - Labs CBC & Chem 7: 06/10/19 04:20 06/11/19 06:09 Labs: Abnormal Lab Results - Last 24 Hours (Table) 06/11/19 06/11/19 Range/Units 06:08 06:09 PT 34.9 H (9.0-12.0) sec INR 3.6 H (<1.2) Sodium 134 L (137-145) mmol/L Potassium 3.4 L (3.5-5.1) mmol/L Chloride 95 L (98-107) mmol/L BUN 68 H (9-20) mg/dL Creatinine 1.80 H (0.66-1.25) mg/dL Glucose 106 H (74-99) mg/dL Total Bilirubin 2.4 H (0.2-1.3) mg/dL AST 128 H (17-59) U/L ALT 123 H (4-49) U/L Microbiology - Last 24 Hours (Table) 06/05/19 19:46 Blood Culture - Preliminary Blood No Growth after 120 hours Assessment and Plan Plan: Assessment: 1. Acute kidney injury secondary to ATN secondary to cardiorenal syndrome. Re nal function is stable. Creatinine 1.8 today. No proteinuria on UA. Urine eosinophils negative. 2. A. fib with RVR maintained on Lopressor. 3. Acute on chronic systolic CHF with ejection fraction of 20-25%. 4. Volume overload. Improving with diuresis. 5. Chronic kidney disease stage III with baseline creatinine 1.5-1.7. 6. Hypokalemia secondary to diuresis. Magnesium normal. Plan: Continue Lasix 60 mg IV twice daily. Maintain metolazone 2.5 mg once daily. Continue to monitor renal function and urine output. Avoid nephrotoxins. Replace potassium. 40 mEq today.
--- NOTE | 2019-06-11 10:17 | P.PN ---
Subjective Progress Note Date: 06/11/19 Principal diagnosis: Shortness of breath 63-year-old male patient with past medical history of chronic congestive heart failure, atrial fibrillation on Coumadin, cardiomyopathy with EF of less than 20%, will hypertension, with right-sided pressures of 41 mmHg , mild MR, mild TR, severe enlargement of the right ventricle, and moderately enlarged left atrium was noted on previous echocardiogram from December 2018. Other medical history includes morbid obesity, coronary artery disease, hypertension, hyperlipidemia, previous myocardial infarction, chronic kidney disease stage III, hypothyroidism, previous episodes of pneumonia, chronic venous stasis and previous episodes of cellulitis involving bilateral lower extremities. Patient is a lifetime nonsmoker, no history of chronic lung disease, he is not on home oxygen or CPAP device at home. Patient presented to the emergency department on 06/05/2019 at 1627 per EMS for evaluation of increasing shortness of breath, and concern for possibility of ST elevated MA, as per EKG performed by the EMS staff. In addition patient noted increasing lower extremity pain, redness, and swelling, his shortness of breath has been progressive over a period of 2 weeks, he has been orthopneic. Denied any fever or chills, denied any cough or congestion, denied chest pain. On arrival to the emergency department EKG was taken showing atrial fibrillation with left bundle branch block pattern that was unchanged from his most recent EKG. Patient was significantly dyspneic on presentation, lab work showed leukocytosis with a white blood cell count of 19.8, significantly reddened and painful and swollen lower extremities, left greater than right, increased neutrophils on the differential, metabolic panel showed mild anion gap acidosis, and lactic acidosis of 4.4, BUN of 42, and creatinine of 2.12, troponin was 0.052, and proBNP level of 25,000. D-dimer was negative at 0.19. Chest x-ray showed interstitial phase pulmonary edema, markedly enlarged cardiac silhouette. Left lower extremity x-ray was completed showing extensive foot and ankle soft tissue swelling, osteopenic metatarsal heads. Patient was placed on BiPAP support for worsening dyspnea, with pressures of 14/7, and FiO2 of 100%, started on IV diuretics and was given cefepime and vancomycin. Patient states he developed a generalized rash on chest, abdomen, and back. He states the rash on his chest is not itchy, however it is itchy on his back On 06/11/2019 patient seen in follow-up on selective care unit, he is awake and alert, he sitting up on the edge of the bed, he states his breathing continues to improve, lung sounds reveal diminished breath sounds at the bases, no rhonchi, no wheezes or rales, patient is currently off BiPAP, he is on 6 L of oxygen with a pulse ox of 97%, hemodynamically patient is stable, she remains in A. fib with a controlled rate, he is afebrile, [facility] chest x-ray showed persistent fluid overload with mild pulmonary vascular congestion. he remains on IV Lasix 60 mg twice daily, and metabolism. He is getting local wound treatment to bilateral lower extremity cellulitis, and he is on IV antibiotics in the form of clindamycin, ID service is following. Objective - Vital Signs Vital signs: Vital Signs Temp 97.9 F 06/11/19 04:00 Pulse 84 06/11/19 04:00 Resp 18 06/11/19 04:00 BP 107/66 06/11/19 04:00 Pulse Ox 97 06/10/19 23:37 Intake & Output 06/10/19 06/11/19 06/11/19 18:59 06:59 18:59 Intake Total 820 50 360 Output Total 2550 2250 Balance -1730 -2200 360 Weight 151.6 kg Intake: Intake, IV Titration 50 50 Amount Clindamycin 900 mg In 50 50 Dextrose 5% in Water 50 ml @ 50 mls/hr IVPB Q8HR [facility] Rx#:[id number] Oral 770 360 Output: Urine 2550 2250 Other: Voiding Method Indwelling Catheter Urinal # Voids 1 - Exam GENERAL EXAM: He can alert arousable, obese white male, on 6 L of oxygen and the pulse ox of 97%, sitting up on the edge of the bed, comfortable in no apparent distress. HEAD: Normocephalic/atraumatic. EYES: Normal reaction of pupils, equal size. Conjunctiva pink, sclera white. NOSE: Clear with pink turbinates. THROAT: No erythema or exudates. NECK: No masses, no JVD, no thyroid enlargement, no adenopathy. CHEST: No chest wall deformity. Symmetrical expansion. Generalized macular rash on chest, abdomen, back and arms LUNGS: diminished breath sounds over bilateral bases, no rhonchi, no wheezing no crackles CVS: Irregular rate and rhythm, distant S1 and S2, no gallops, no murmurs, no rubs ABDOMEN: Soft, nontender, obese with macular rash all over the old abdomen. No hepatosplenomegaly, normal bowel sounds, no guarding or rigidity. EXTREMITIES: No clubbing, extensive edema involving bilateral lower extremities with cellulitis with improved redness and tenderness left greater than right, onychomycosis, dry cracked skin on bilateral soles, no cyanosis, 1+ pulses and upper and lower extremities. MUSCULOSKELETAL: Muscle strength and tone normal. SPINE: No scoliosis or deformity SKIN: Generalized macular rash on chest abdomen and back CENTRAL NERVOUS SYSTEM: Alert and oriented -3. No focal deficits, tone is normal in all 4 extremities. PSYCHIATRIC: Alert and oriented -3. Appropriate affect. Intact judgment and insight. - Labs CBC & Chem 7: 06/10/19 04:20 06/11/19 06:09 Labs: Abnormal Lab Results - Last 24 Hours (Table) 06/11/19 06/11/19 Range/Units 06:08 06:09 PT 34.9 H (9.0-12.0) sec INR 3.6 H (<1.2) Sodium 134 L (137-145) mmol/L Potassium 3.4 L (3.5-5.1) mmol/L Chloride 95 L (98-107) mmol/L BUN 68 H (9-20) mg/dL Creatinine 1.80 H (0.66-1.25) mg/dL Glucose 106 H (74-99) mg/dL Total Bilirubin 2.4 H (0.2-1.3) mg/dL AST 128 H (17-59) U/L ALT 123 H (4-49) U/L Microbiology - Last 24 Hours (Table) 06/05/19 19:46 Blood Culture - Preliminary Blood No Growth after 120 hours Assessment and Plan Plan: Assessment: #1. Acute hypoxemic respiratory failure related to acute exacerbation of systolic CHF, requiring BiPAP support, with pressures of 14/7, and FiO2 of 40%. Patient's breathing is improving, patient has been diuresed, she is off the BiPAP support, currently on 6 L per high flow nasal cannula with a pulse ox of 97% #2. Bilateral lower extremity cellulitis, left greater than right with extensive redness, swelling and tenderness involving lower extremities, improving, and patient is on clindamycin for antibiotic and local wound care #3. Generalized macular rash, presumably to antibiotics, possibly cefepime and vancomycin #4. Leukocytosis #5. Anion gap metabolic acidosis with lactic acidosis of 4.4, multifactorial, related to acute CHF exacerbation, and possibility of sepsis #6. Acute on chronic kidney disease #7. Hypertension #8. Hyperlipidemia #9. Mild troponin leak #10. Coronary artery disease and ischemic cardiomyopathy with EF of less than 20% mild MR, mild TR, severe right ventricular and moderate left atrial enlargement and right-sided pressures of 42 mmHg #11. Previous history of myocardial infarction #12. Hypothyroidism #13. Morbid obesity #14. Chronic venous stasis and past history of cellulitis involving lower extremities #15. Never smoker Plan: Continue diuretics, nephrology is following, total volume status is improving, breathing is improving, yesterday's chest x-ray still showed persistent fluid volume overload, will obtain follow-up chest x-ray tomorrow, wean FiO2, patient has not required BiPAP support. Remains on IV clindamycin and lower extremity edema and cellulitis are improving. Vital signs are stable, no acute events overnight, increase activity as tolerated, today's labs were noted, follow-up chest x-ray in the morning I performed a history & physical examination of the patient and discussed their management with my nurse practitioner, Winter Nelson. I reviewed the nurse practitioner's note and agree with the documented findings and plan of care. Lung sounds are positive for diminished breath sounds on the left. The findings and the impression was discussed with the patient. I attest to the documentation by the nurse practitioner. Time with Patient: Less than 30
--- NOTE | 2019-06-11 12:33 | P.PN ---
Subjective Progress Note Date: 06/11/19 This is a 63-year-old gentleman with history of chronic persistent atrial fibrillation, chronic kidney disease, severe impairment of left ventricular systolic function, hypertension, hypothyroidism, previous episodes of pneumonia, chronic venous stasis, bilateral a chronic cellulitis of lower ext remities, presented to the hospital on June 04 with symptoms of progressive dyspnea and associated peripheral edema. He was noted to be in atrial fibrillation with episodes of rapid ventricular response. He follows in the office with Dr. Goodwin. Patient has been diuresing well, his weight is down significantly. Blood pressure 117/80 with a heart rate of 80 this morning, 98% on 6 L of oxygen. Pro time today is 34.9 with an INR 3.6. Sodium 134, potassium 3.4, BUN 68, creatinine 1.8. Magnesium 2.2. He continues at this time to be on IV Lasix 60 mg twice a day as well as Zaroxolyn daily, per recommendations from nephrology. Amiodarone had been discontinued because of abnormal liver functions. He continues to be on beta robles. Potassium 3.4 today which was replaced. Objective - Vital Signs Vital signs: Vital Signs Temp 97.9 F 06/11/19 04:00 Pulse 88 06/11/19 11:33 Resp 18 06/11/19 11:33 BP 117/80 06/11/19 11:33 Pulse Ox 98 06/11/19 11:33 Intake & Output 06/10/19 06/11/19 06/11/19 18:59 06:59 18:59 Intake Total 820 50 360 Output Total 2550 2250 Balance -1730 -2200 360 Weight 151.6 kg Intake: Intake, IV Titration 50 50 Amount Clindamycin 900 mg In 50 50 Dextrose 5% in Water 50 ml @ 50 mls/hr IVPB Q8HR [facility] Rx#:[id number] Oral 770 360 Output: Urine 2550 2250 Other: Voiding Method Indwelling Catheter Urinal Urinal # Voids 1 - Exam GENERAL EXAM: He can alert arousable, obese white male, on 6 L of oxygen and the pulse ox of 97%, sitting up on the edge of the bed, comfortable in no apparent distress. HEAD: Normocephalic/atraumatic. EYES: Normal reaction of pupils, equal size. Conjunctiva pink, sclera white. NOSE: Clear with pink turbinates. THROAT: No erythema or exudates. NECK: No masses, no JVD, no thyroid enlargement, no adenopathy. CHEST: No chest wall deformity. Symmetrical expansion. Generalized macular rash on chest, abdomen, back and arms LUNGS: diminished breath sounds over bilateral bases, no rhonchi, no wheezing no crackles CVS: Irregular rate and rhythm, distant S1 and S2, no gallops, no murmurs, no rubs ABDOMEN: Soft, nontender, obese with macular rash all over the old abdomen. No hepatosplenomegaly, normal bowel sounds, no guarding or rigidity. EXTREMITIES: No clubbing, extensive edema involving bilateral lower extremities with cellulitis with improved redness and tenderness left greater than right, onychomycosis, dry cracked skin on bilateral soles, no cyanosis, 1+ pulses and upper and lower extremities. MUSCULOSKELETAL: Muscle strength and tone normal. SPINE: No scoliosis or deformity SKIN: Generalized macular rash on chest abdomen and back CENTRAL NERVOUS SYSTEM: Alert and oriented -3. No focal deficits, tone is normal in all 4 extremities. PSYCHIATRIC: Alert and oriented -3. Appropriate affect. Intact judgment and insight. - Labs CBC & Chem 7: 06/10/19 04:20 06/11/19 06:09 Labs: Abnormal Lab Results - Last 24 Hours (Table) 06/11/19 06/11/19 Range/Units 06:08 06:09 PT 34.9 H (9.0-12.0) sec INR 3.6 H (<1.2) Sodium 134 L (137-145) mmol/L Potassium 3.4 L (3.5-5.1) mmol/L Chloride 95 L (98-107) mmol/L BUN 68 H (9-20) mg/dL Creatinine 1.80 H (0.66-1.25) mg/dL Glucose 106 H (74-99) mg/dL Total Bilirubin 2.4 H (0.2-1.3) mg/dL AST 128 H (17-59) U/L ALT 123 H (4-49) U/L Microbiology - Last 24 Hours (Table) 06/05/19 19:46 Blood Culture - Preliminary Blood No Growth after 120 hours Assessment and Plan Plan: Assessment and plan: #1. Acute hypoxemic respiratory failure related to acute exacerbation of systolic CHF, #2. Bilateral lower extremity cellulitis, left greater than right with extensive redness, swelling and tenderness involving lower extremities #3. Generalized macular rash #4. Leukocytosis #5. No prior history of smoking #6. Acute on chronic kidney disease #7. Hypertension #8. Hyperlipidemia #9. Mild troponin leak #10. Nonischemic cardiomyopathy #11. Chronic venous stasis and past history of cellulitis involving lower extremities #12. Hypothyroidism #13. Morbid obesity Plan We will increase Lopressor to 25 mg one tablet by mouth twice a day, repeat chest x-ray tomorrow morning. DNP note has been reviewed, I agree with a documented findings and plan of care. Patient was seen and examined.
[2019-06-11] MEDS: CLINDAMYCIN 900 MG in DEXTROSE 5% IN WATER 50 ML IVPB SCH ×6 (13:38→23:15)
--- NOTE | 2019-06-11 18:50 | PN ---
PROGRESS NOTE DATE OF SERVICE: 06/11/2019 REASON FOR FOLLOWUP: Left lower extremity cellulitis. INTERVAL HISTORY: The patient is currently afebrile, has been breathing comfortably. Denies having any chest pain. Occasional cough. No abdominal pain or pain to the left leg. PHYSICAL EXAMINATION: Blood pressure 117/80 with a pulse of 88, temperature 97.9. He is 98% on 6 L high-flow oxygen. General description is a middle-aged male lying in bed in no distress. RESPIRATORY SYSTEM: Unlabored breathing. Decreased breath sounds at the base. No wheeze. HEART: S1, S2. Regular rate and rhythm. ABDOMEN: Soft. No tenderness. Left leg swelling and redness have decreased in intensity. LABS: Creatinine 1.80. White count normal at 8.6. DIAGNOSTIC IMPRESSION AND PLAN: 1. Patient with acute left lower extremity cellulitis. Patient is currently covered with clindamycin because of MULTIPLE ANTIBIOTIC ALLERGIES. Transition to a course of oral clindamycin on discharge. 2. Athlete's foot. Continue with Mycostatin powder. Continue supportive care. MMODL / IJN: [id number] /
--- NOTE | 2019-06-11 20:02 | P.PN ---
Progress Note - Text Progress Note Date: 06/11/19 Chief Complaint: Short of breath History of presenting complaint: This is a 63-year-old patient of Dr. Hall. Patient was in the hospital early January 2019. Patient admitted with a diagnosis of CHF EF of 20-25%, atrial flutter fibrillation, acute ischemic hepatitis from hypertension, and acute left lower extremity cellulitis. Also had acute renal failure. Patient now presents with worsening short of breath. [place] to be in CHF exacerbation. Put on a Lasix drip. Patient has some chronic swelling of the left lower extremity. On BiPAP. Admitted to ICU. Also redness of the left lower extremity. Some of which is known to be chronic. Started her antibiot ics. Also had acute kidney injury secondary to ATN secondary to cardiorenal syndrome. A. fib became a bit uncontrolled Today-laying in bed. Slightly short of breath. Getting IV Lasix and IV clinda mycin. Eating 100% of his meals. Review of systems: Was done for constitutional, cardiovascular, GI, pulmonary. relevant finding as above Active Medications Alprazolam (Xanax) 0.25 mg PO BID PRN PRN Reason: Anxiety Last Admin: 06/07/19 22:30 Dose: 0.25 mg Documented by: Diphenhydramine HCl (Benadryl) 25 mg PO TID PRN PRN Reason: Itching Last Admin: 06/07/19 20:03 Dose: 25 mg Documented by: Diphenhydramine HCl (Benadryl) 25 mg IVP Q6HR PRN PRN Reason: Allergy Symptoms Last Admin: 06/08/19 01:05 Dose: 25 mg Documented by: Furosemide (Lasix) 60 mg IV Q12HR [facility] [place] Last Admin: 06/11/19 08:47 Dose: 60 mg Documented by: Hydrocortisone (Hydrocortisone 1% Cream) 1 applic TOPICAL BID PRN PRN Reason: Skin Irritation Clindamycin Phosphate 900 mg/ (Dextrose/Water) 56 mls @ 50 mls/hr IVPB Q8HR [facility] [place] Last Admin: 06/11/19 17:27 Dose: Not Given Documented by: Levothyroxine Sodium (Synthroid) 25 mcg PO SuMoWeFrSa@0630 [facility] [place] Last Admin: 06/11/19 06:23 Dose: 25 mcg Documented by: Metolazone (Zaroxolyn) 2.5 mg PO DAILY [facility] [place] Last Admin: 06/11/19 08:47 Dose: 2.5 mg Documented by: Metoprolol Tartrate (Lopressor) 25 mg PO BID [facility] [place] Miscellaneous Information (Potassium Per Protocol) 1 each MISCELLANE DAILY PRN; Protocol PRN Reason: Per Protocol Naloxone HCl (Narcan) 0.2 mg IV Q2M PRN PRN Reason: Opioid Reversal Nystatin (Mycostatin Powder) 1 applic TOPICAL BID [facility] [place] Last Admin: 06/11/19 08:48 Dose: 1 applic Documented by: Silver Sulfadiazine (Silvadene Cream) 1 applic TOPICAL BID [facility] [place] Last Admin: 06/11/19 08:48 Dose: 1 applic Documented by: INVESTIGATIONS, reviewed in the clinical context: White count 8.6 hemoglobin 13.6 rate is 101 INR 3.6 potassium 3.4 bun 68 creatinine 1.8 Previous testing White count 19.8 hemoglobin 13.6 platelets 126 Sodium 135 potassium 4.9 bun 42 creatinine 2.12 EKG tracing personally reviewed by me-left bundle-branch block possible atrial fibrillation Chest x-ray film personally reviewed by me-cardiomegaly with venous prominence Troponin I 0.052, 0.080 Assessment: -Acute on chronic congestive heart failure exacerbation from diastolic and systolic dysfunction EF 20-25%,-slow to improve on IV Lasix -Persistent atrial fibrillation/flutter, uncontrolled -Left bundle-branch block -Morbid obesity BMI 52.3 -Acute left lower extremity cellulitis -Hyperlipidemia -Essential hypertension -Chronic kidney disease stage III from nephrosclerosis at her baseline baseline creatinine 1.7 -Acute kidney injury, likely prerenal from cardiorenal syndrome, -Bilateral lower extremity venous insufficiency and chronic venous stasis -Troponin leak from chronic kidney disease, no evidence of acute coronary syndrome -Coumadin monitoring -Hypothyroid Plan: Patient remains on IV Lasix. IV clindamycin to continue. Oral intake better. Also on Zaroxolyn. Lopressor admitted today for increased heart rate. Follow closely.
[2019-06-11] MEDS: METOPROLOL TARTRATE 25 MG TAB PO SCH (20:21)
[2019-06-12] MEDS: diphenhydrAMINE 50 MG/ML 1 ML VIAL IVP PRN (03:25)
[2019-06-12 06:47] LABS: INR 2.1 (<1.2); Prothrombin Time 20.4 sec (9.0-12.0)
[2019-06-12 06:54] LABS: Magnesium 2.1 mg/dL (1.6-2.3)
--- NOTE | 2019-06-12 07:36 | XR ---
EXAMINATION TYPE: XR chest 2V DATE OF EXAM: 06/12/2019 COMPARISON: Chest x-ray from 2 days ago. HISTORY: CHF. TECHNIQUE: Frontal and lateral views of the chest are obtained. FINDINGS: Interval removal of left internal jugular central venous catheter. There is persistent card iomegaly. Background chronic parenchymal change with increasing reticulonodular interstitial opacitie s bilaterally. No significant pleural effusion seen on lateral view. No pneumothorax noted. Osseous s tructures are demineralized. IMPRESSION: Background cardiomegaly and chronic parenchymal change with slightly more prominent inte rstitial edema is felt present bilaterally on background chronic changes. Correlate for worsening CHF exacerbation.
--- NOTE | 2019-06-12 08:17 | P.PN ---
Subjective Patient is seen in follow-up for acute kidney injury on chronic kidney disease. Renal function is improving. Denies chest pain or shortness of breath. Nonoliguric. No vomiting or diarrhea. Weight trending down. Vital signs are stable. General: The patient appeared well nourished and normally developed. HEENT: Head exam is unremarkable. Neck is without jugular venous distension. LUNGS: Breath sounds decreased. HEART: Irregular rate and rhythm. ABDOMEN: Abdominal exam reveals normal bowel sounds. Non-tender and non- distended. No evidence of peritonitis. EXTREMITITES: 1+ edema. Erythema noted. No drainage. Objective - Vital Signs Vital signs: Vital Signs Temp 98.0 F 06/12/19 03:36 Pulse 98 06/12/19 03:36 Resp 18 06/12/19 03:36 BP 122/88 06/12/19 03:36 Pulse Ox 97 06/12/19 03:36 Intake & Output 06/11/19 06/12/19 06/12/19 18:59 06:59 18:59 Intake Total 1080 776 Output Total 900 2500 400 Balance 180 -2500 376 Weight 137.8 kg Intake: Oral 1080 776 Output: Urine 900 2500 400 Other: Voiding Method Urinal Urinal # Voids 1 - Labs CBC & Chem 7: 06/10/19 04:20 06/12/19 05:51 Labs: Abnormal Lab Results - Last 24 Hours (Table) 06/12/19 06/12/19 Range/Units 05:51 05:51 PT 20.4 H (9.0-12.0) sec INR 2.1 H (<1.2) Sodium 134 L (137-145) mmol/L Potassium 3.0 L (3.5-5.1) mmol/L Chloride 91 L (98-107) mmol/L Carbon Dioxide 34 H (22-30) mmol/L BUN 64 H (9-20) mg/dL Creatinine 1.62 H (0.66-1.25) mg/dL Microbiology - Last 24 Hours (Table) 06/05/19 19:46 Blood Culture - Final Blood No Growth after 144 hours Assessment and Plan Plan: Assessment: 1. Acute kidney injury secondary to ATN secondary to cardiorenal syndrome. Renal function is improving. Creatinine 1.62 today. No proteinuria on UA. Urine eosinophils negative. 2. A. fib with RVR maintained on Lopressor. 3. Acute on chronic systolic CHF with ejection fraction of 20-25%. 4. Volume overload. Improving with diuresis. 5. Chronic kidney disease stage III with baseline creatinine 1.5-1.7. 6. Hypokalemia secondary to diuresis. Magnesium normal. Plan: Continue Lasix 60 mg IV twice daily. Maintain metolazone 2.5 mg once daily. Continue to monitor renal function and urine output. Avoid nephrotoxins. Replace potassium. 80 mEq today. Low-salt diet and 1500 mL fluid restriction.
[2019-06-12] MEDS: FUROSEMIDE 10 MG/ML 10 ML VIAL IV SCH ×2 (09:09→21:29)
[2019-06-12] MEDS: POTASSIUM CHLORIDE ER 20 MEQ TAB.ER PO SCH ×2 (09:09→10:13)
[2019-06-12] MEDS: CLINDAMYCIN 900 MG in DEXTROSE 5% IN WATER 50 ML IVPB SCH ×6 (09:09→23:17)
[2019-06-12] MEDS: METOPROLOL TARTRATE 25 MG TAB PO SCH ×2 (09:10→21:30)
[2019-06-12] MEDS: METOLAZONE 2.5 MG TAB PO SCH (09:10)
[2019-06-12] MEDS: NYSTATIN 100,000 UNIT/GM POWD 15 GM TOPICAL SCH ×2 (09:10→21:29)
--- NOTE | 2019-06-12 11:12 | P.PN ---
Subjective Progress Note Date: 06/12/19 This is a 63-year-old gentleman with history of chronic persistent atrial fibrillation, chronic kidney disease, severe impairment of left ventricular systolic function, hypertension, hypothyroidism, previous episodes of pneumonia, chronic venous stasis, bilateral a chronic cellulitis of lower ext remities, presented to the hospital on June 04 with symptoms of progressive dyspnea and associated peripheral edema. He was noted to be in atrial fibrillation with episodes of rapid ventricular response. He follows in the office with Dr. Goodwin. Patient has been diuresing well, his weight is down significantly. Blood pressure 117/80 with a heart rate of 80 this morning, 98% on 6 L of oxygen. Pro time today is 34.9 with an INR 3.6. Sodium 134, potassium 3.4, BUN 68, creatinine 1.8. Magnesium 2.2. He continues at this time to be on IV Lasix 60 mg twice a day as well as Zaroxolyn daily, per recommendations from nephrology. Amiodarone had been discontinued because of abnormal liver functions. He continues to be on beta robles. Potassium 3.4 today which was replaced. 06/12/2019 Patient seen and examined this morning, diuresing well through the night last night, blood pressure 122/80, creatinine 1.6 today. Patient overall states he is feeling significantly better. Objective - Vital Signs Vital signs: Vital Signs Temp 97.3 F L 06/12/19 08:00 Pulse 57 L 06/12/19 08:00 Resp 18 06/12/19 08:00 BP 105/70 06/12/19 08:00 Pulse Ox 93 L 06/12/19 08:00 Intake & Output 06/11/19 06/12/19 06/12/19 18:59 06:59 18:59 Intake Total 1080 776 Output Total 900 2500 775 Balance 180 -2500 1 Weight 137.8 kg Intake: Oral 1080 776 Output: Urine 900 2500 775 Other: Voiding Method Urinal Urinal Urinal # Voids 1 1 - Exam GENERAL EXAM: He can alert arousable, obese white male, on 6 L of oxygen and the pulse ox of 97%, sitting up on the edge of the bed, comfortable in no apparent distress. HEAD: Normocephalic/atraumatic. EYES: Normal reaction of pupils, equal size. Conjunctiva pink, sclera white. NOSE: Clear with pink turbinates. THROAT: No erythema or exudates. NECK: No masses, no JVD, no thyroid enlargement, no adenopathy. CHEST: No chest wall deformity. Symmetrical expansion. Generalized macular rash on chest, abdomen, back and arms LUNGS: diminished breath sounds over bilateral bases, no rhonchi, no wheezing no crackles CVS: Irregular rate and rhythm, distant S1 and S2, no gallops, no murmurs, no rubs ABDOMEN: Soft, nontender, obese with macular rash all over the old abdomen. No hepatosplenomegaly, normal bowel sounds, no guarding or rigidity. EXTREMITIES: No clubbing, extensive edema involving bilateral lower extremities with cellulitis with improved redness and tenderness left greater than right, onychomycosis, dry cracked skin on bilateral soles, no cyanosis, 1+ pulses and upper and lower extremities. MUSCULOSKELETAL: Muscle strength and tone normal. SPINE: No scoliosis or deformity SKIN: Generalized macular rash on chest abdomen and back CENTRAL NERVOUS SYSTEM: Alert and oriented -3. No focal deficits, tone is normal in all 4 extremities. PSYCHIATRIC: Alert and oriented -3. Appropriate affect. Intact judgment and insight. - Labs CBC & Chem 7: 06/10/19 04:20 06/12/19 05:51 Labs: Abnormal Lab Results - Last 24 Hours (Table) 06/12/19 06/12/19 Range/Units 05:51 05:51 PT 20.4 H (9.0-12.0) sec INR 2.1 H (<1.2) Sodium 134 L (137-145) mmol/L Potassium 3.0 L (3.5-5.1) mmol/L Chloride 91 L (98-107) mmol/L Carbon Dioxide 34 H (22-30) mmol/L BUN 64 H (9-20) mg/dL Creatinine 1.62 H (0.66-1.25) mg/dL Microbiology - Last 24 Hours (Table) 06/05/19 19:46 Blood Culture - Final Blood No Growth after 144 hours Assessment and Plan Plan: Assessment and plan: #1. Acute hypoxemic respiratory failure related to acute exacerbation of systolic CHF, #2. Bilateral lower extremity cellulitis, left greater than right with extensive redness, swelling and tenderness involving lower extremities #3. Generalized macular rash #4. Leukocytosis #5. No prior history of smoking #6. Acute on chronic kidney disease #7. Hypertension #8. Hyperlipidemia #9. Mild troponin leak #10. Nonischemic cardiomyopathy #11. Chronic venous stasis and past history of cellulitis involving lower extremities #12. Hypothyroidism #13. Morbid obesity Plan Chest x-ray continues to show evidence of congestive cardiac failure. We will continue the patient on current dose of IV Lasix, continue to monitor the intake and output along with daily weights and daily lytes BUN and creatinine. DNP note has been reviewed, I agree with a documented findings and plan of care. Patient was seen and examined.
--- NOTE | 2019-06-12 16:20 | PN ---
PROGRESS NOTE DATE OF SERVICE: 06/12/2019 REASON FOR FOLLOWUP: Left lower extremity cellulitis. INTERVAL HISTORY: The patient is currently afebrile, has been breathing more comfortably. Denies having any chest pain. Occasional cough. No abdominal pain and no pain to the left leg. PHYSICAL EXAMINATION: Blood pressure is 97/72 with a pulse of 94, temperature 97.5. He is 93% on room air. General description is a middle-aged male up in the bed in no distress. RESPIRATORY SYSTEM: Unlabored breathing with decreased breath sounds at the base. No wheeze. HEART: S1, S2. Regular rate and rhythm. ABDOMEN: Soft. No tenderness. Left leg with swelling and redness decreased. Not that warm to touch. LABS: BUN of 64, creatinine 1.62. INR is 2.1. DIAGNOSTIC IMPRESSION AND PLAN: 1. Patient with acute left lower extremity cellulitis in this patient who did have diffuse swelling and redness. The patient is currently covered with clindamycin to a course of oral clindamycin along with Hermes to keep the swelling down. 2. Athlete's foot. Continue powder twice daily for another week. MMODL / IJN: [id number] /
--- NOTE | 2019-06-12 17:49 | P.PN ---
Progress Note - Text Progress Note Date: 06/12/19 Chief Complaint: Short of breath History of presenting complaint: This is a 63-year-old patient of Dr. Hall. Patient was in the hospital early January 2019. Patient admitted with a diagnosis of CHF EF of 20-25%, atrial flutter fibrillation, acute ischemic hepatitis from hypertension, and acute left lower extremity cellulitis. Also had acute renal failure. Patient now presents with worsening short of breath. [place] to be in CHF exacerbation. Put on a Lasix drip. Patient has some chronic swelling of the left lower extremity. On BiPAP. Admitted to ICU. Also redness of the left lower extremity. Some of which is known to be chronic. Started her antibiot ics. Also had acute kidney injury secondary to ATN secondary to cardiorenal syndrome. A. fib became a bit uncontrolled Today-eating fine. No new issues. On IV Lasix. Telemetry-A. fib around 100 w ith ectopics Review of systems: Was done for constitutional, cardiovascular, GI, pulmonary. relevant finding as above Active Medications Alprazolam (Xanax) 0.25 mg PO BID PRN PRN Reason: Anxiety Last Admin: 06/07/19 22:30 Dose: 0.25 mg Documented by: Diphenhydramine HCl (Benadryl) 25 mg PO TID PRN PRN Reason: Itching Last Admin: 06/07/19 20:03 Dose: 25 mg Documented by: Diphenhydramine HCl (Benadryl) 25 mg IVP Q6HR PRN PRN Reason: Allergy Symptoms Last Admin: 06/12/19 03:25 Dose: 25 mg Documented by: Furosemide (Lasix) 60 mg IV Q12HR [facility] Last Admin: 06/12/19 09:09 Dose: 60 mg Documented by: Hydrocortisone (Hydrocortisone 1% Cream) 1 applic TOPICAL BID PRN PRN Reason: Skin Irritation Clindamycin Phosphate 900 mg/ (Dextrose/Water) 56 mls @ 50 mls/hr IVPB Q8HR [facility] Last Admin: 06/12/19 16:18 Dose: 50 mls/hr Documented by: Levothyroxine Sodium (Synthroid) 25 mcg PO SuMoWeFrSa@0630 [facility] Last Admin: 06/11/19 06:23 Dose: 25 mcg Documented by: Metolazone (Zaroxolyn) 2.5 mg PO DAILY [facility] Last Admin: 06/12/19 09:10 Dose: 2.5 mg Documented by: Metoprolol Tartrate (Lopressor) 25 mg PO BID [facility] Last Admin: 06/12/19 09:10 Dose: 25 mg Documented by: Miscellaneous Information (Potassium Per Protocol) 1 each MISCELLANE DAILY PRN; Protocol PRN Reason: Per Protocol Naloxone HCl (Narcan) 0.2 mg IV Q2M PRN PRN Reason: Opioid Reversal Nystatin (Mycostatin Powder) 1 applic TOPICAL BID [facility] Last Admin: 06/12/19 09:10 Dose: 1 applic Documented by: Silver Sulfadiazine (Silvadene Cream) 1 applic TOPICAL BID [facility] Last Admin: 06/12/19 09:10 Dose: 1 applic Documented by: Warfarin Sodium (Coumadin) 2.5 mg PO DAILY@1800 [facility]; Protocol INVESTIGATIONS, reviewed in the clinical context: Potassium 3 bun 64 creatinine 1.6 to Previous testing White count 19.8 hemoglobin 13.6 platelets 126 Sodium 135 potassium 4.9 bun 42 creatinine 2.12 EKG tracing personally reviewed by me-left bundle-branch block possible atrial fibrillation Chest x-ray film personally reviewed by me-cardiomegaly with venous prominence Troponin I 0.052, 0.080 Assessment: -Acute on chronic congestive heart failure exacerbation from diastolic and sys tolic dysfunction EF 20-25%,- on IV Lasix -Persistent atrial fibrillation/flutter, better controlled -Left bundle-branch block -Morbid obesity BMI 52.3 -Acute left lower extremity cellulitis -Hyperlipidemia -Essential hypertension -Chronic kidney disease stage III from nephrosclerosis at her baseline baseline creatinine 1.7 -Acute kidney injury, likely prerenal from cardiorenal syndrome, -Bilateral lower extremity venous insufficiency and chronic venous stasis -Troponin leak from chronic kidney disease, no evidence of acute coronary syndrome -Coumadin monitoring -Hypothyroid Plan: Continue with IV Lasix, Zaroxolyn, clindamycin. Discussed with the patient.
[2019-06-12] MEDS ORDERED: WARFARIN 2.5 MG TAB PO SCH (18:00)
[2019-06-13 06:35] LABS: INR 1.6 (<1.2); Prothrombin Time 15.4 sec (9.0-12.0)
[2019-06-13] MEDS: LEVOTHYROXINE 25 MCG TAB PO SCH (06:42)
[2019-06-13 10:00] LABS: Calcium 9.1 mg/dL (8.4-10.2); Potassium 3.2 mmol/L (3.5-5.1)
--- NOTE | 2019-06-13 10:27 | CDI ---
Documentation Clarification Form Date: 06/13/2019 08:48:00 AM From: Beth Alanis RN, CCDS Admit Date: 06/05/2019 07:59:00 PM Patient Name: Omid López Visit Number: [id number] Discharge Date: ATTENTION: The Clinical Documentation Specialists (CDI) and [facility] Coding Staff appreciate your assistance in clarifying documentation. Please respond to the clarification below the line at the bottom and electronically sign. The CDI & [facility] Coding staff will review the response and follow-up if needed. Please note: Queries are made part of the Legal Health Record. If you have any questions, please contact the author of this message via ITS. Dr. Carter Marte Atrial Flutter fibrillation is documented in your H&P and subsequent progress notes. 06/05 Cardiology, (Dr. Rosas): Chronic persistent atrial fibrillation, anticoagulated. Atrial flutter is not clearly defined and further clarification for the type is requested. History/Risk factors: Atrial Fibrillation, Heart Failure Clinical Indicators: 63-year-old male present to the emergency department on 06/04 with complaint of short of breath, chest pain. 06/04 Vital signs: 88/38 72 22 95 % RA EKG/telemetry: ED interpretation: Ventricular rate 120, sinus tachycardia, NV interval d`154, WRS 146, QTC 473. Overall, this EKG is unremarkable. Treatment: Coumadin 2.5 mg daily, change to 5 mg po @1800 (Pharmacy to dose) Monitor PT/INR daily In your professional opinion, in order to capture the severity of condition; can you please clarify the type of Atrial Flutter if known? Typical/Type I Atypical/Type II Other, please specify Unable to determine (Last Revision: June 2017) Unable to determine MTDD
--- NOTE | 2019-06-13 10:30 | P.PN ---
Subjective Patient is seen in follow-up for acute kidney injury on chronic kidney disease. Renal function is stable. Denies chest pain or shortness of breath. Nonoliguric. No vomiting or diarrhea. Vital signs are stable. General: The patient appeared well nourished and normally developed. HEENT: Head exam is unremarkable. Neck is without jugular venous distension. LUNGS: Breath sounds decreased. HEART: Irregular rate and rhythm. ABDOMEN: Abdominal exam reveals normal bowel sounds. Non-tender and non- distended. No evidence of peritonitis. EXTREMITITES: 1+ edema. Erythema noted. No drainage. Objective - Vital Signs Vital signs: Vital Signs Temp 96.7 F L 06/13/19 04:00 Pulse 61 06/13/19 04:00 Resp 20 06/13/19 04:00 BP 113/73 06/13/19 04:00 Pulse Ox 96 06/13/19 04:00 Intake & Output 06/12/19 06/13/19 06/13/19 18:59 06:59 18:59 Intake Total 1252 320 120 Output Total 1425 1200 500 Balance -173 -880 -380 Weight 145.2 kg Intake: Oral 1252 320 120 Output: Urine 1425 1200 500 Other: Voiding Method Urinal # Voids 1 1 1 - Labs CBC & Chem 7: 06/10/19 04:20 06/13/19 05:33 Labs: Abnormal Lab Results - Last 24 Hours (Table) 06/13/19 06/13/19 Range/Units 05:33 05:33 PT 15.4 H (9.0-12.0) sec INR 1.6 H (<1.2) Sodium 136 L (137-145) mmol/L Potassium 3.2 L (3.5-5.1) mmol/L Chloride 90 L (98-107) mmol/L Carbon Dioxide 35 H (22-30) mmol/L BUN 67 H (9-20) mg/dL Creatinine 1.58 H (0.66-1.25) mg/dL Assessment and Plan Plan: Assessment: 1. Acute kidney injury secondary to ATN secondary to cardiorenal syndrome. Renal function is stable. Creatinine 1.58 today. No proteinuria on UA. Urine eosinophils negative. 2. A. fib with RVR maintained on Lopressor. 3. Acute on chronic systolic CHF with ejection fraction of 20-25%. 4. Volume overload. Improving with diuresis. 5. Chronic kidney disease stage III with baseline creatinine 1.5-1.7. 6. Hypokalemia secondary to diuresis. Magnesium normal. Plan: Continue Lasix 60 mg IV twice daily. Maintain metolazone 2.5 mg once daily. Continue to monitor renal function and urine output. Avoid nephrotoxins. Replace potassium. 80 mEq today. Low-salt diet and 1500 mL fluid restriction.
[2019-06-13] MEDS ORDERED: POTASSIUM CHLORIDE ER 20 MEQ TAB.ER PO SCH (10:32)
--- NOTE | 2019-06-13 11:03 | PN ---
PROGRESS NOTE This patient is followed here for dilated cardiomyopathy and congestive heart failure, cellulitis. Patient remains stable cardiac-webber. Patient's urine output remains good. First and second heart sounds are normal. Lungs are fairly clear to auscultation and percussion. Continues to have some leg edema. Patient's creatinine is improving to 1.58. We will start the patient on Aldactone and continue the Lopressor. Patient's heart rate now is 60-70 per minute. MMODL / IJN: [id number] /
[2019-06-13 11:37] VITALS: BP 139/93; PULSE 54; RESP 18; TEMP 97.5
--- NOTE | 2019-06-13 15:23 | PN ---
PROGRESS NOTE DATE OF SERVICE: 05/15/2019. REASON FOR FOLLOWUP: Left lower extremity cellulitis. INTERVAL HISTORY: The patient is currently afebrile, has been breathing comfortably Denies having any chest pain. Occasional cough. No nausea or abdominal pain. No pain in the lower extremity. PHYSICAL EXAMINATION: Blood pressure 100/96 with a pulse of 54, temperature is 97.5, he is 95% on 3 L nasal cannula. General description is a middle-aged male lying in bed, in no distress. RESPIRATORY SYSTEM: Unlabored breathing, decreased breath sounds at the base, no wheeze. HEART: S1, S2, regular rate and rhythm. ABDOMEN: Soft, no tenderness. LABS: Creatinine is 1.53. DIAGNOSTIC IMPRESSION AND PLAN: Patient with acute left lower extremity cellulitis, adequately treated. May give 3 to 5 L of oral on discharge, . Continue supportive care. MMODL / IJN: [id number] /
[2019-06-13] MEDS ORDERED: POTASSIUM CHLORIDE ER 20 MEQ TAB.ER PO STA (15:43)
[2019-06-13] MEDS: NYSTATIN 100,000 UNIT/GM POWD 15 GM TOPICAL SCH (16:00)
[2019-06-13] MEDS: METOPROLOL TARTRATE 25 MG TAB PO SCH (16:00)
[2019-06-13] MEDS: METOLAZONE 2.5 MG TAB PO SCH (16:01)
[2019-06-13] MEDS: CLINDAMYCIN 900 MG in DEXTROSE 5% IN WATER 50 ML IVPB SCH ×4 (16:01→16:06)
[2019-06-13] MEDS: FUROSEMIDE 10 MG/ML 10 ML VIAL IV SCH (16:01)
[2019-06-13] MEDS ORDERED: WARFARIN 5 MG TAB PO ONE (18:00)
--- NOTE | 2019-06-13 23:54 | P.DS ---
Providers Date of admission: 06/05/19 19:59 Expected date of discharge: 06/13/19 Attending physician: Carter Marte Consults: 06/05/19 19:29 Consult Physician Routine Consulting Provider: Sal Goodwin Consult Reason/Comments: heart failure Do you want consulting provider notified?: Yes 06/05/19 19:58 Consult Physician Routine Consulting Provider: Royal Castillo Consult Reason/Comments: cellulitis Do you want consulting provider notified?: Yes 06/05/19 20:26 Consult Physician Routine Consulting Provider: Jose Cruz Heaton Consult Reason/Comments: icu patient Do you want consulting provider notified?: Yes 06/06/19 10:43 Consult Physician Routine Consulting Provider: Royal Castillo Consult Reason/Comments: BLE cellulitis Do you want consulting provider notified?: Yes 06/06/19 15:48 Consult Physician Routine Consulting Provider: Tegan Paz Consult Reason/Comments: Acute on chronic kidney disease Do you want consulting provider notified?: Yes Primary care physician: Sherman Hall Hospital Course: Chief Complaint: Short of breath History of presenting complaint: This is a 63-year-old patient of Dr. Hall. Patient was in the hospital early January 2019. Patient admitted with a diagnosis of CHF EF of 20-25%, atrial flutter fibrillation, acute ischemic hepatitis from hypertension, and acute left lower extremity cellulitis. Also had acute renal failure. Patient now presents with worsening short of breath. Brumley to be in CHF exacerbation. Put on a Lasix drip. Patient has some chronic swelling of the left lower extremity. On BiPAP. Admitted to ICU. Also redness of the left lower extremity. Some of which is known to be chronic. Started on IV clindamycin. Also had acute kidney injury secondary to ATN secondary to cardiorenal syndrome. A. fib became a bit uncontrolled. Patient's initial creatine 2.12 did come down to 1.58 Today-doing well. Eating well. Edema is coming down. Discussed with Dr. Jaelyn flowers from nephrology. Okay to switch to by mouth Lasix. Discussed with Dr. VC Cormier from cardiology.-TO DC. Discussed with patient. And regional planner. Discussion and discharge planning more than 35 minutes Consultation: Nephrology [facility]iology [facility] INVESTIGATIONS, reviewed in the clinical context: Bun 67 creatinine 1.58 Previous testing White count 19.8 hemoglobin 13.6 platelets 126 Sodium 135 potassium 4.9 bun 42 creatinine 2.12 EKG tracing personally reviewed by me-left bundle-branch block possible atrial fibrillation Chest x-ray film personally reviewed by me-cardiomegaly with venous prominence Troponin I 0.052, 0.080 Assessment: -Acute on chronic congestive heart failure exacerbation from diastolic and systolic dysfunction EF 20-25%, POA -Persistent atrial fibrillation/flutter, better controlled, POA -Left bundle-branch block -Morbid obesity BMI 52.3 -Acute left lower extremity cellulitis -Hyperlipidemia -Essential hypertension -Chronic kidney disease stage III from nephrosclerosis at her baseline baseline creatinine 1.7 -Acute kidney injury, likely prerenal from cardiorenal syndrome, POA -Bilateral lower extremity venous insufficiency and chronic venous stasis -Troponin leak from chronic kidney disease, no evidence of acute coronary syndrome -Coumadin monitoring -Hypothyroid Disposition: Home Patient Condition at Discharge: Stable Plan - Discharge Summary Discharge Rx Participant: Yes New Discharge Prescriptions: New Clindamycin [Cleocin] 150 mg PO Q6H #28 cap Nystatin 100,000 Unit/gm Powd [Mycostatin Powder] 1 applic TOPICAL BID applic SILVER sulfADIAZINE CREAM [Silvadene Cream] 1 applic TOPICAL BID applic Metolazone [Zaroxolyn] 2.5 mg PO DAILY #30 tab Continue Potassium Chloride ER [K-Dur 20] 20 meq PO DAILY Spironolactone [Aldactone] 25 mg PO DAILY #30 tab Levothyroxine Sodium [Synthroid] 25 mcg PO MOWEFR Midodrine [ProAmatine] 5 mg PO AC-TID #30 tab Allopurinol [Zyloprim] 100 mg PO DAILY #1 tablet Famotidine [Pepcid] 20 mg PO BID #1 tablet Warfarin Sodium [Coumadin] 7.5 mg PO FR Warfarin Sodium 5 mg PO SUMOTUWETHSA Levothyroxine Sodium [Synthroid] 50 mcg PO SUTUTHSA Changed Furosemide [Lasix] 60 mg PO BID #60 tab Metoprolol Tartrate [Lopressor] 25 mg PO BID #0 Discharge Medication List Potassium Chloride ER [K-Dur 20] 20 meq PO DAILY 04/17/17 [History] Spironolactone [Aldactone] 25 mg PO DAILY #30 tab 12/14/18 [Rx] Levothyroxine Sodium [Synthroid] 25 mcg PO MOWEFR 01/21/19 [History] Allopurinol [Zyloprim] 100 mg PO DAILY #1 tablet 01/31/19 [Rx] Famotidine [Pepcid] 20 mg PO BID #1 tablet 01/31/19 [Rx] Midodrine [ProAmatine] 5 mg PO AC-TID #30 tab 01/31/19 [Rx] Warfarin Sodium 5 mg PO SUMOTUWETHSA 06/05/19 [History] Warfarin Sodium [Coumadin] 7.5 mg PO FR 06/05/19 [History] Levothyroxine Sodium [Synthroid] 50 mcg PO SUTUTHSA 06/06/19 [History] Clindamycin [Cleocin] 150 mg PO Q6H #28 cap 06/13/19 [Rx] Furosemide [Lasix] 60 mg PO BID #60 tab 06/13/19 [Rx] Metolazone [Zaroxolyn] 2.5 mg PO DAILY #30 tab 06/13/19 [Rx] Metoprolol Tartrate [Lopressor] 25 mg PO BID #0 06/13/19 [Rx] Nystatin 100,000 Unit/gm Powd [Mycostatin Powder] 1 applic TOPICAL BID applic 06/13/19 [Rx] SILVER sulfADIAZINE CREAM [Silvadene Cream] 1 applic TOPICAL BID applic 06/13/19 [Rx] Follow up Appointment(s)/Referral(s): Sherman Hall MD [Primary Care Provider] - 1-2 days (OFFICE IS CURRENTLY CLOSED, PLEASE CALL IN MORNING TO MAKE APPOINTMENT TO BE SEEN IN 1 TO 2 DAYS ) Kana Miller DO [STAFF PHYSICIAN] - 10 Days (OFFICE CURRENTLY CLOSED PLEASE CALL IN MORNING TO MAKE APPOINTMENT TO BE SEEN IN 10 DAYS ) Patient Instructions/Handouts: Heart Failure (DC), Acute Kidney Injury (DC), Cellulitis (DC) Activity/Diet/Wound Care/Special Instructions: Wound care per Dr. Castillo ID BMP-3 days Discharge Disposition: HOME SELF-CARE
[2019-06-14] MEDS ORDERED: SPIRONOLACTONE 25 MG TAB PO SCH (09:00)
== END 2019-06-13 18:15 | disposition home or self-care (01) | DRG 871 ==
LOC: EC 16:22 → 3SCARD 19:59 → 2SICU 20:37 → 3SCARD 06-10 15:01
PROVIDERS: ADMIT Hospitalist; ATTEND Hospitalist
PROC: 02HV33Z Insertion of Infusion Device into Superior Vena Cava, Percutaneous Approach (ICD-10-PCS; principal; 2019-06-07)
DX: A41.9 Sepsis, unspecified organism (principal); I50.43 Acute on chronic combined systolic (congestive) and diastolic (congestive) heart failure; J96.01 Acute respiratory failure with hypoxia; N17.0 Acute kidney failure with tubular necrosis; E87.2 Acidosis; I13.0 Hypertensive heart and chronic kidney disease with heart failure and stage 1 through stage 4 chronic kidney disease, or unspecified chronic kidney disease; L03.116 Cellulitis of left lower limb; L03.115 Cellulitis of right lower limb; Z68.43 Body mass index [BMI] 50.0-59.9, adult; I42.0 Dilated cardiomyopathy; I48.19 Other persistent atrial fibrillation; B35.3 Tinea pedis; D69.6 Thrombocytopenia, unspecified; E03.9 Hypothyroidism, unspecified; E66.01 Morbid (severe) obesity due to excess calories; E78.5 Hyperlipidemia, unspecified; I44.7 Left bundle-branch block, unspecified; I27.20 Pulmonary hypertension, unspecified; N18.3 Chronic kidney disease, stage 3 (moderate); L23.9 Allergic contact dermatitis, unspecified cause; T50.2X5A Adverse effect of carbonic-anhydrase inhibitors, benzothiadiazides and other diuretics, initial encounter; K76.1 Chronic passive congestion of liver; Z96.1 Presence of intraocular lens; I87.2 Venous insufficiency (chronic) (peripheral); E87.6 Hypokalemia; F41.9 Anxiety disorder, unspecified; G47.33 Obstructive sleep apnea (adult) (pediatric); I25.10 Atherosclerotic heart disease of native coronary artery without angina pectoris; I25.5 Ischemic cardiomyopathy; I25.2 Old myocardial infarction; Z82.3 Family history of stroke; Z88.1 Allergy status to other antibiotic agents; Z88.0 Allergy status to penicillin; Z79.01 Long term (current) use of anticoagulants; Z79.890 Hormone replacement therapy; Z79.899 Other long term (current) drug therapy; Z80.9 Family history of malignant neoplasm, unspecified; Z85.828 Personal history of other malignant neoplasm of skin; Z87.01 Personal history of pneumonia (recurrent); Z98.42 Cataract extraction status, left eye; Z98.41 Cataract extraction status, right eye
CPT/HCPCS: 36415; 36600; 71045; 71046; 80048; 80053; 81001; 82570; 82805; 83605; 83735; 83880; 84100; 84132; 84156; 84484; 85025; 85379; 85610; 85730; 87040; 87086; 87205; 93005; 93306; 94660; 96365; 96366; 96367; 96375; 96376; 99285

== ENCOUNTER 2019-07-04 02:15 | Inpatient (IN) | payer BC ==
[2019-07-04] MEDS ORDERED: SODIUM CHLORIDE 0.9% 1,000 ML IV STA (02:27)
[2019-07-04] MEDS ORDERED: SODIUM CHLORIDE 0.9% 500 ML 500 ML IV STA ×2 (02:27→03:43)
--- NOTE | 2019-07-04 02:28 | ED ---
Dizziness HPI - General Chief Complaint: Dizziness Stated Complaint: Dizziness Time Seen by Provider: 07/04/19 02:22 Source: patient, EMS, RN notes reviewed, old records reviewed Mode of arrival: EMS Limitations: no limitations - History of Present Illness Initial Comments: This is a 61-year-old male DF for evaluation patient has a for evaluation regard s to multiple complaints or a for weakness. Patient forthright history from EMS patient's her. Patient again coming in for weakness dizziness lightheadedness not feeling well. Patient is also assessed shortness of breath without chest pain MD Complaint: dizziness, lightheadedness, near syncope -: days(s) Timing: gradual onset Description: lightheadedness, off-balance, difficulty walking History of Same: Yes History of Trauma: No Severity: moderate Improves With: remaining still Worsens With: movement Associated Symptoms: weakness - Related Data Home Medications Medication Instructions Recorded Confirmed Potassium Chloride ER [K-Dur 20] 20 meq PO DAILY 04/17/17 07/04/19 Warfarin Sodium 5 mg PO SUMOTUWETHSA 06/05/19 07/04/19 Warfarin Sodium [Coumadin] 7.5 mg PO FR 06/05/19 07/04/19 Previous Rx's Medication Instructions Recorded Spironolactone [Aldactone] 25 mg PO DAILY #30 tab 03/08/18 Allopurinol [Zyloprim] 100 mg PO DAILY #1 tablet 01/31/19 Famotidine [Pepcid] 20 mg PO BID #1 tablet 01/31/19 Midodrine [ProAmatine] 5 mg PO AC-TID #30 tab 01/31/19 SILVER sulfADIAZINE CREAM 1 applic TOPICAL BID applic 06/13/19 [Silvadene Cream] Aspirin 81 mg PO DAILY chew 07/08/19 Furosemide [Lasix] 40 mg PO BID #60 tab 07/08/19 Levothyroxine Sodium [Levoxyl] 37.5 mg PO DAILY #30 tab 07/08/19 Metoprolol Tartrate [Lopressor] 25 mg PO TID #0 07/08/19 Nystatin 100,000 Unit/gm Powd 1 applic TOPICAL BID applic 07/08/19 [Mycostatin Powder] Allergies Allergy/AdvReac Type Severity Reaction Status Date / Time amiodarone Allergy Rash/Hives Verified 07/04/19 08:24 ampicillin [From Unasyn] Allergy Rash/Hives Verified 07/04/19 08:24 sulbactam [From Unasyn] Allergy Rash/Hives Verified 07/04/19 08:24 Review of Systems ROS Statement: Those systems with pertinent positive or pertinent negative responses have been documented in the HPI. ROS Other: All systems not noted in ROS Statement are negative. Past Medical History Past Medical History: Atrial Fibrillation, Coronary Artery Disease (CAD), Can cer, Heart Failure, Hyperlipidemia, Hypertension, Myocardial Infarction (UT), Pneumonia, Renal Disease, Thyroid Disorder Additional Past Medical History / Comment(s): Bronchitis, possible UT per EKG, hypothyroid, CKD stage III, bilateral lower extremity venous insufficiency/ chronic venous stasis/past cellulitis bilateral lower legs, skin cancer with removals. Last Myocardial Infarction Date:: unkn History of Any Multi-Drug Resistant Organisms: None Reported Past Surgical History: Adenoidectomy, Tonsillectomy Additional Past Surgical History / Comment(s): Bilateral cataract removals/lens implants, skin cancer removals L hand/L shoulder/L ear, midline IV-since removed. Past Anesthesia/Blood Transfusion Reactions: No Reported Reaction Past Psychological History: No Psychological Hx Reported Smoking Status: Never smoker Past Alcohol Use History: None Reported Past Drug Use History: None Reported - Past Family History Father Family Medical History: CVA/TIA Additional Family Medical History / Comment(s): Father at the age of 90yrs. Mother Family Medical History: Cancer Additional Family Medical History / Comment(s): Mother from cancer (unknown type) at age 80s General Exam Limitations: no limitations General appearance: alert, in no apparent distress Head exam: Present: atraumatic, normocephalic, normal inspection Eye exam: Present: normal appearance, PERRL, EOMI. Absent: scleral icterus, conjunctival injection, periorbital swelling ENT exam: Present: normal exam, mucous membranes moist Neck exam: Present: normal inspection. Absent: tenderness, meningismus, lymphadenopathy Respiratory exam: Present: normal lung sounds bilaterally. Absent: respiratory distress, wheezes, rales, rhonchi, stridor Cardiovascular Exam: Present: regular rate, normal rhythm, normal heart sounds. Absent: systolic murmur, diastolic murmur, rubs, gallop, clicks GI/Abdominal exam: Present: soft, normal bowel sounds. Absent: distended, tenderness, guarding, rebound, rigid Extremities exam: Present: normal inspection, full ROM, normal capillary refill. Absent: tenderness, pedal edema, joint swelling, calf tenderness Back exam: Present: normal inspection Neurological exam: Present: alert, oriented X3, CN II-XII intact Psychiatric exam: Present: normal affect, normal mood Skin exam: Present: warm, dry, intact, normal color. Absent: rash Course Vital Signs 07/04/19 07/04/19 07/04/19 02:17 03:38 03:53 Temperature 97.5 F L 97.4 F L Pulse Rate 93 75 85 Respiratory 20 17 20 Rate Blood Pressure 106/88 97/74 97/74 O2 Sat by Pulse 96 91 L 95 Oximetry 07/04/19 07/04/19 07/04/19 04:00 04:30 05:00 Temperature Pulse Rate 87 76 79 Respiratory 16 18 16 Rate Blood Pressure 96/83 124/63 98/80 O2 Sat by Pulse 96 98 Oximetry 07/04/19 07/04/19 07/04/19 05:30 06:00 06:30 Temperature Pulse Rate 81 80 84 Respiratory 15 15 20 Rate Blood Pressure 99/72 88/70 111/99 O2 Sat by Pulse 98 96 98 Oximetry 07/04/19 06:53 Temperature 97.4 F L Pulse Rate Respiratory Rate Blood Pressure O2 Sat by Pulse Oximetry - Reevaluation(s) Reevaluation #1: Medical record is reviewed Patient has no change or improvement in clinical symptoms EKG Findings - EKG Comments: EKG Findings:: EKG shows A. fib rate of 76, QRS 162, QTC 591 Medical Decision Making - Medical Decision Making 63 male to the ER for evaluation patient Dese for evaluation of weakness and shortness of breath patient to be admitted for further evaluation management - Lab Data Result diagrams: 07/08/19 05:38 07/08/19 05:38 Lab Results 07/04/19 07/04/19 07/04/19 Range/Units 02:45 02:45 02:45 WBC 6.7 (3.8-10.6) k/uL RBC 6.18 H (4.30-5.90) m/uL Hgb 18.4 H D (13.0-17.5) gm/dL Hct 54.9 H (39.0-53.0) % MCV 88.9 D (80.0-100.0) fL MCH 29.8 (25.0-35.0) pg MCHC 33.6 (31.0-37.0) g/dL RDW 15.4 (11.5-15.5) % Plt Count 97 L (150-450) k/uL Neutrophils % 64 % Lymphocytes % 24 % Monocytes % 8 % Eosinophils % 1 % Basophils % 1 % Neutrophils # 4.2 (1.3-7.7) k/uL Lymphocytes # 1.6 (1.0-4.8) k/uL Monocytes # 0.5 (0-1.0) k/uL Eosinophils # 0.1 (0-0.7) k/uL Basophils # 0.0 (0-0.2) k/uL Manual Slide Review Performed Large Platelets Present PT 17.0 H (9.0-12.0) sec INR 1.7 H (<1.2) APTT 23.8 (22.0-30.0) sec D-Dimer 1.18 H (<0.60) mg/L FEU Sodium 130 L (137-145) mmol/L Potassium 3.2 L (3.5-5.1) mmol/L Chloride 77 L (98-107) mmol/L Carbon Dioxide 33 H (22-30) mmol/L Anion Gap 20 mmol/L BUN 135 H* (9-20) mg/dL Creatinine 2.99 H (0.66-1.25) mg/dL Est GFR (CKD-EPI)AfAm 25 (>60 ml/min/1.73 sqM) Est GFR (CKD-EPI)NonAf 21 (>60 ml/min/1.73 sqM) Glucose 159 H (74-99) mg/dL Calcium 10.2 (8.4-10.2) mg/dL Phosphorus 5.6 H (2.5-4.5) mg/dL Magnesium 3.0 H (1.6-2.3) mg/dL Total Bilirubin 3.3 H (0.2-1.3) mg/dL AST 70 H (17-59) U/L ALT 41 (4-49) U/L Alkaline Phosphatase 165 H (38-126) U/L Creatine Kinase 64 (55-170) U/L CK-MB (CK-2) (0.0-2.4) ng/mL Troponin I (0.000-0.034) ng/mL NT-Pro-B Natriuret Pep pg/mL Total Protein 9.0 H (6.3-8.2) g/dL Albumin 4.7 (3.5-5.0) g/dL 07/04/19 07/04/19 Range/Units 02:45 02:45 WBC (3.8-10.6) k/uL RBC (4.30-5.90) m/uL Hgb (13.0-17.5) gm/dL Hct (39.0-53.0) % MCV (80.0-100.0) fL MCH (25.0-35.0) pg MCHC (31.0-37.0) g/dL RDW (11.5-15.5) % Plt Count (150-450) k/uL Neutrophils % % Lymphocytes % % Monocytes % % Eosinophils % % Basophils % % Neutrophils # (1.3-7.7) k/uL Lymphocytes # (1.0-4.8) k/uL Monocytes # (0-1.0) k/uL Eosinophils # (0-0.7) k/uL Basophils # (0-0.2) k/uL Manual Slide Review Large Platelets PT (9.0-12.0) sec INR (<1.2) APTT (22.0-30.0) sec D-Dimer (<0.60) mg/L FEU Sodium (137-145) mmol/L Potassium (3.5-5.1) mmol/L Chloride (98-107) mmol/L Carbon Dioxide (22-30) mmol/L Anion Gap mmol/L BUN (9-20) mg/dL Creatinine (0.66-1.25) mg/dL Est GFR (CKD-EPI)AfAm (>60 ml/min/1.73 sqM) Est GFR (CKD-EPI)NonAf (>60 ml/min/1.73 sqM) Glucose (74-99) mg/dL Calcium (8.4-10.2) mg/dL Phosphorus (2.5-4.5) mg/dL Magnesium (1.6-2.3) mg/dL Total Bilirubin (0.2-1.3) mg/dL AST (17-59) U/L ALT (4-49) U/L Alkaline Phosphatase (38-126) U/L Creatine Kinase (55-170) U/L CK-MB (CK-2) 1.8 (0.0-2.4) ng/mL Troponin I 0.125 H* (0.000-0.034) ng/mL NT-Pro-B Natriuret Pep 9420 pg/mL Total Protein (6.3-8.2) g/dL Albumin (3.5-5.0) g/dL - Radiology Data Radiology results: report reviewed (CT brain negative for acute disease chest x- ray negative for acute disease mild congestion), image reviewed Disposition Clinical Impression: Acute renal failure, Heart failure, Morbid obesity, CHF exacerbation, Electrolyte abnormality, Dehydration, Dizziness Disposition: ADMITTED IP TO THIS HOSP Condition: Stable Is patient prescribed a controlled substance at d/c from ED?: No
[2019-07-04] MEDS ORDERED: MORPHINE SULFATE 4 MG/ML SYRINGE IVP STA (02:32)
[2019-07-04 03:13] LABS: Albumin 4.7 g/dL (3.5-5.0); Calcium 10.2 mg/dL (8.4-10.2); Total Bilirubin 3.3 mg/dL (0.2-1.3)
[2019-07-04 03:14] LABS: INR 1.7 (<1.2); Partial Thromboplastin Time 23.8 sec (22.0-30.0)
[2019-07-04 03:16] LABS: D-Dimer 1.18 mg/L FEU (<0.60)
[2019-07-04 03:19] LABS: Basophils % (A) 1 %; Eosinophils # (A) 0.1 k/uL (0-0.7); Eosinophils % (A) 1 %; Lymphocytes # (A) 1.6 k/uL (1.0-4.8); Lymphocytes % (A) 24 %; MCH 29.8 pg (25.0-35.0); MCHC 33.6 g/dL (31.0-37.0); MCV 88.9 fL (80.0-100.0); Mean Platelet Volume 17.1; Monocytes # (A) 0.5 k/uL (0-1.0); Monocytes % (A) 8 %; Neutrophils # (A) 4.2 k/uL (1.3-7.7); Neutrophils % (A) 64 %; Platelet Count 97 k/uL (150-450); RBC 6.18 m/uL (4.30-5.90); RDW 15.4 % (11.5-15.5); WBC 6.7 k/uL (3.8-10.6)
[2019-07-04 03:22] LABS: Potassium 3.2 mmol/L (3.5-5.1)
[2019-07-04 03:23] LABS: Phosphorus 5.6 mg/dL (2.5-4.5)
[2019-07-04 03:26] LABS: HGB 18.4 gm/dL (13.0-17.5)
[2019-07-04 03:27] LABS: HCT 54.9 % (39.0-53.0)
--- NOTE | 2019-07-04 03:28 | XR ---
EXAMINATION TYPE: XR chest 2V DATE OF EXAM: 07/04/2019 COMPARISON: 06/12/2019 HISTORY: Weakness TECHNIQUE: FINDINGS: Heart is enlarged. There is mild pulmonary vascular congestion. There is no pulmonary conso lidation. There is coarsening of the lung markings. Thoracic aorta is atheromatous. Bony thorax is in tact. IMPRESSION: Cardiomegaly and mild congestion but no obvious heart failure. Bony vascularity is improv ed slightly compared to last exam.
--- NOTE | 2019-07-04 03:32 | CT ---
EXAMINATION TYPE: CT brain wo con DATE OF EXAM: 07/04/2019 COMPARISON: None HISTORY: headache CT DLP: 1066.4 mGycm Automated exposure control for dose reduction was used. There is diffuse cerebral cortical atrophy. There is no mass effect nor midline shift. There is no si gn of intracranial hemorrhage. The calvarium is intact. There is large cisterna magna. There is 10 x 6 mm area of hypodensity adjacent to the left side of the cerebral falx in the left pos terior frontal lobe that could be a small meningioma. IMPRESSION: Cerebral atrophy. No acute intracranial abnormality. Possible small meningioma of the left side of th e cerebral falx.
[2019-07-04 03:34] LABS: Creatine Kinase MB 1.8 ng/mL (0.0-2.4)
[2019-07-04 03:39] LABS: Large Platelets Present
[2019-07-04] MEDS ORDERED: POTASSIUM BICARBONATE/CIT AC 20 MEQ TABLET.EFF PO ONE (03:43)
[2019-07-04 03:47] LABS: Troponin I 0.125 ng/mL (0.000-0.034)
[2019-07-04] MEDS ORDERED: MORPHINE SULFATE 4 MG/ML SYRINGE IV PRN (06:16)
[2019-07-04] MEDS ORDERED: NITROGLYCERIN SL TABS 0.4 MG TAB SUBLINGUAL PRN (06:16)
[2019-07-04 08:29] LABS: Appearance,Urine Clear (Clear); Bilirubin,Urine Negative (Negative); Blood,Urine Negative (Negative); Color,Urine Yellow; Glucose,Urine (UA) Negative (Negative); Ketones,Urine Negative (Negative); Leukocyte Esterase,Urine Negative (Negative); Nitrite,Urine Negative (Negative); PH, Urine 5.5 (5.0-8.0); Protein,Urine Trace (Negative); Specific Gravity,Urine 1.012 (1.001-1.035)
[2019-07-04] MEDS ORDERED: ATORVASTATIN 80 MG TAB PO SCH (09:00)
[2019-07-04] MEDS: METOPROLOL TARTRATE 25 MG TAB PO SCH ×2 (10:09→21:16)
[2019-07-04] MEDS: ASPIRIN 81 MG PO SCH (10:09)
[2019-07-04] MEDS: SODIUM CHLORIDE 0.9% 1,000 ML IV SCH ×3 (10:10→22:56)
[2019-07-04 10:29] VITALS: BMI 44.1
--- NOTE | 2019-07-04 10:32 | CONS ---
CONSULTATION This is a 63-year-old gentleman who sees Dr. Goodwin in the outpatient setting. He has been admitted to the hospital after a recent discharge. I was asked to see him mainly for congestive heart failure. This gentleman has history of probable nonischemic cardiomyopathy, although I did not find any record for a coronary angiogram on this patient. He has an ejection fraction in the range of 20% to 25% with dilated left ventricle, global hypokinesia and no significant pulmonary hypertension. This gentleman sees apparently Dr. Goodwin in the outpatient setting. He was recently discharged after being diuresed aggressively for heart failure. Now he comes into the hospital with complaints of feeling weak, dizzy, lightheaded, near syncopal, but never quite passed out. He appears to be dehydrated with significantly elevated BUN. His skin is dry and he seems to be significantly dehydrated with a prerenal azotemia. He has atrial fib with underlying IVCD, has been on Coumadin and also has hypothyroidism as well. He has been on a combination of a beta blockers, midodrine, Aldactone, and metolazone 2.5 mg daily in addition to Lasix as an outpatient at 60 mg b.i.d. At the time of my evaluation, he is lying comfortably has no chest pain or shortness of breath. Just tells me that he is weak, dehydrated and when he tried to walk around, he felt dizzy but did not pass out. PAST MEDICAL HISTORY: 1. Chronic atrial fibrillation. 2. Hypertension. 3. Hyperlipidemia. 4. Probable nonischemic cardiomyopathy, but I have not seen documentation of any coronary angiogram. 5. Patient has CKD. 6. Hypothyroidism. Clinically, patient appears to be quite dehydrated. Laboratory data suggests a BUN of 135, creatinine of 2.9, potassium is 3.2, sodium is 130. Troponin is equivocal at 0.1 and 0.12 values. BNP is 9420 and appears to be chronically elevated. PHYSICAL EXAMINATION: On examination, blood pressure is 140/70, pulse rate is about 80, irregular. HEENT: Unremarkable. Fundus was not examined by me. Neck is supple. There is no JVD. There is no carotid bruit. Heart exam reveals S1, S2 with irregularity. Short systolic murmur. Lungs revealed diminished air entry. Abdomen is soft. Lower extremities reveal no edema, diminished pulses. Central nervous system grossly no focal deficits. A detailed exam was not performed. IMPRESSION: 1. Dehydration with prerenal azotemia BUN of 135, creatinine of 2.9. 2. Probable nonischemic cardiomyopathy with heart failure, aggressively diuresed and recently discharged from the hospital on 06/13/2019. 3. Chronic atrial fibrillation. 4. History of chronic CKD. RECOMMENDATIONS: I am recommending that we hydrate him very cautiously, resume the beta robles. Check labs again. I will give him 125 mL/hour normal saline for 6 hours and then switch him to 75 mL/hour. Check his labs in the morning, supplement potassium. He is also being seen by Nephrology. Cautious fluid administration. Resumption of beta blockers. When creatinine is normal, he should be on Hermes and ARB as well. Overall prognosis for this gentleman remains somewhat guarded. I discussed my thoughts in detail with the patient and also talked to Dr. Paz. Thank you very much for the consult. CARINE / PATRICIA: [id number] /
[2019-07-04] MEDS ORDERED: POTASSIUM CHLORIDE ER 20 MEQ TAB.ER PO SCH (18:00)
--- NOTE | 2019-07-04 18:21 | P.HPIM ---
History of Present Illness H&P Date: 07/04/19 Chief Complaint: Dizzy Presenting complaint: Short of breath History of presenting complaint: This is a 63-year-old patient of Dr. Hall. Patient was in the hospital early January 2019. Chronic stable medical conditions include congestive heart failure EF 20-25%, atrial flutter fibrillation, left bundle-branch block, morbid obesity, hyperlipidemia, bilateral lower extremity venous insufficiency and chronic venous stasis, hypothyroid. Patient was in the hospital in May of this year with CHF exacerbation. Required Lasix drip. Prior to discharge creatinine had dropped down to 1.58. Patient is a roommate. Patient presents with feeling tired rundown. Dizzy lig htheaded. [place] nearly passing out. Appetite is okay. No fever or chills. Occasional cough. Patient in the ER does go to be in acute renal failure. No neurological symptoms. Review of systems: GEN.: [ Tired dizzy] EYES: [None] HEENT: [None] NECK: [None] RESPIRATORY: [None] CARDIOVASCULAR: [None] GASTROINTESTINAL: [None] GENITOURINARY: [None] MUSCULOSKELETAL: [None] LYMPHATICS: [None] HEMATOLOGICAL: [None] DERMATOLOGICAL: Chronic lower extremity skin changes PSYCHIATRY: [None] NEUROLOGICAL: [None] Past medical history to include: CHF EF 20-25%, atrial flutter fibrillation, left bundle-branch block, morbid obesity, bilateral lower extremity venous insufficiency and chronic venous stasis, hyperlipidemia, hypertension, chronic kidney disease stage III, Social history: Lives with a roommate. Retired. Does not smoke or drink alcohol. Physical examination: VITAL SIGNS: 97.5, 93, 20, 106 over was 88 repeated blood pressure 97/74, 96% on 3 L. Large blood pressure documented in May of this year was 139/93 GENERAL: BMI 44.9, laying in bed, awake not in distress EYES: Pupils equal. Conjunctiva normal. HEENT: External appearance of nose and ears normal, oral cavity grossly normal. NECK: JVD unable to assess; masses not palpable. HEART: Heart sounds regular; no edema LUNGS: Respiratory rate increased, diminished breath sounds ABDOMEN: Soft, nontender, liver spleen not palpable, no masses palpable. PSYCH: AAO 3, motor affect normal NEUROLOGICAL: [Cranial nerves grossly intact; no facial asymmetry, moving all his limbs EXTREMITIES: Chronic venous insufficiency and venous stasis changes of lower extremity and dry skin of the feet and disfigured nails LYMPHATICS: No lymph nodes palpable in the axilla and neck INVESTIGATIONS, reviewed in the clinical context: White count 6.7 hemoglobin 18.4 platelets 97 potassium 3.2 by, 33 bun 135 creatinine 2.99, INR 1.7 Troponin I 0.125, 0.113 June 12-bun 67 creatinine 1.58 EKG tracing personally reviewed by me-shows atrial fibrillation with left bundle-branch block pattern, PVCs Chest x-ray film personally reviewed by me-venous prominence though in a very obese patient Assessment: -Acute kidney injury, likely prerenal patient does take Aldactone, Zaroxolyn and Lasix at home. -Syncope from volume loss hypertension, POA -chronic congestive heart failure exacerbation from diastolic and systolic dysfunction EF 20-25%, POA -Persistent atrial fibrillation/flutter, better controlled, POA -Left bundle-branch block -Morbid obesity BMI 52.3 -Hyperlipidemia -Essential hypertension-history of -Hypotension from volume loss -Chronic kidney disease stage III from nephrosclerosis at her baseline baseline creatinine 1.7 -Bilateral lower extremity venous insufficiency and chronic venous stasis -Troponin leak from chronic kidney disease, no evidence of acute coronary syndrome -Coumadin monitoring -Hypothyroid -Hypokalemia from diuresis Plan: Diuretics will be held. IV fluids. Repeat labs in the morning. Replace potassium. Care was discussed with the patient. Telemetry. Discussed with the patient. Other home medications resumed. Past Medical History Past Medical History: Atrial Fibrillation, Coronary Artery Disease (CAD), Cancer, Heart Failure, Hyperlipidemia, Hypertension, Myocardial Infarction (RI), Pneumonia, Renal Disease, Thyroid Disorder Additional Past Medical History / Comment(s): Bronchitis, possible RI per EKG, hypothyroid, CKD stage III, bilateral lower extremity venous insufficiency/chronic venous stasis/past cellulitis bilateral lower legs, skin cancer with removals. Last Myocardial Infarction Date:: unkn History of Any Multi-Drug Resistant Organisms: None Reported Past Surgical History: Adenoidectomy, Tonsillectomy Additional Past Surgical History / Comment(s): Bilateral cataract removals/lens implants, skin cancer removals L hand/L shoulder/L ear, midline IV-since removed. Past Anesthesia/Blood Transfusion Reactions: No Reported Reaction Past Psychological History: No Psychological Hx Reported Additional Psychological History / Comment(s): Pt resides with a roomate. He is retired. He uses no assistive device. He drives. Smoking Status: Never smoker Past Alcohol Use History: None Reported Past Drug Use History: None Reported - Past Family History Father Family Medical History: CVA/TIA Additional Family Medical History / Comment(s): Father at the age of 90yrs. Mother Family Medical History: Cancer Additional Family Medical History / Comment(s): Mother from cancer (unknown type) at age 80s Medications and Allergies Home Medications Medication Instructions Recorded Confirmed Type Potassium Chloride ER [K-Dur 20] 20 meq PO DAILY 04/17/17 07/04/19 History Spironolactone [Aldactone] 25 mg PO DAILY #30 tab 03/08/18 07/04/19 Rx Levothyroxine Sodium [Synthroid] 25 mcg PO MOWEFR 01/21/19 07/04/19 History Allopurinol [Zyloprim] 100 mg PO DAILY #1 tablet 01/31/19 07/04/19 Rx Famotidine [Pepcid] 20 mg PO BID #1 tablet 01/31/19 07/04/19 Rx Midodrine [ProAmatine] 5 mg PO AC-TID #30 tab 01/31/19 07/04/19 Rx Warfarin Sodium 5 mg PO SUMOTUWETHSA 06/05/19 07/04/19 History Warfarin Sodium [Coumadin] 7.5 mg PO FR 06/05/19 07/04/19 History Levothyroxine Sodium [Synthroid] 50 mcg PO SUTUTHSA 06/06/19 07/04/19 History Furosemide [Lasix] 60 mg PO BID #60 tab 06/13/19 07/04/19 Rx Metolazone [Zaroxolyn] 2.5 mg PO DAILY #30 tab 06/13/19 07/04/19 Rx Metoprolol Tartrate [Lopressor] 25 mg PO BID #0 06/13/19 07/04/19 Rx SILVER sulfADIAZINE CREAM 1 applic TOPICAL BID applic 06/13/19 07/04/19 Rx [Silvadene Cream] Allergies Allergy/AdvReac Type Severity Reaction Status Date / Time amiodarone Allergy Rash/Hives Verified 07/04/19 08:24 ampicillin [From Unasyn] Allergy Rash/Hives Verified 07/04/19 08:24 sulbactam [From Unasyn] Allergy Rash/Hives Verified 07/04/19 08:24 Physical Exam Vitals: Vital Signs Temp Pulse Pulse Resp BP BP Pulse Ox 07/04/19 16:00 97.5 F L 85 22 95/69 96 07/04/19 13:03 97.5 F L 18 115/61 07/04/19 12:01 96.6 F L 07/04/19 12:00 18 07/04/19 08:00 18 150/78 07/04/19 06:53 97.4 F L 07/04/19 06:30 84 20 111/99 98 07/04/19 06:00 80 15 88/70 96 07/04/19 05:30 81 15 99/72 98 07/04/19 05:00 79 16 98/80 98 07/04/19 04:30 76 18 124/63 96 07/04/19 04:00 87 16 96/83 07/04/19 03:53 97.4 F L 85 20 97/74 95 07/04/19 03:38 75 17 97/74 91 L 07/04/19 02:17 97.5 F L 93 20 106/88 96 Intake and Output 07/04/19 07/04/19 07/04/19 06:59 14:59 22:59 Intake Total 600 Output Total 475 450 Balance 125 -450 Intake: Oral 600 Output: Urine 475 450 Other: # Voids 1 Weight 131.542 kg 134 kg Results CBC & Chem 7: 07/04/19 02:45 07/04/19 14:55 Labs: Abnormal Lab Results - Last 24 Hours (Table) 07/04/19 07/04/19 07/04/19 Range/Units 02:45 02:45 02:45 RBC 6.18 H (4.30-5.90) m/uL Hgb 18.4 H D (13.0-17.5) gm/dL Hct 54.9 H (39.0-53.0) % Plt Count 97 L (150-450) k/uL PT 17.0 H (9.0-12.0) sec INR 1.7 H (<1.2) D-Dimer 1.18 H (<0.60) mg/L FEU Sodium 130 L (137-145) mmol/L Potassium 3.2 L (3.5-5.1) mmol/L Chloride 77 L (98-107) mmol/L Carbon Dioxide 33 H (22-30) mmol/L BUN 135 H* (9-20) mg/dL Creatinine 2.99 H (0.66-1.25) mg/dL Glucose 159 H (74-99) mg/dL Phosphorus 5.6 H (2.5-4.5) mg/dL Magnesium 3.0 H (1.6-2.3) mg/dL Total Bilirubin 3.3 H (0.2-1.3) mg/dL AST 70 H (17-59) U/L Alkaline Phosphatase 165 H (38-126) U/L Troponin I (0.000-0.034) ng/mL Total Protein 9.0 H (6.3-8.2) g/dL Urine Protein (Negative) 07/04/19 07/04/19 07/04/19 Range/Units 02:45 07:50 08:09 RBC (4.30-5.90) m/uL Hgb (13.0-17.5) gm/dL Hct (39.0-53.0) % Plt Count (150-450) k/uL PT (9.0-12.0) sec INR (<1.2) D-Dimer (<0.60) mg/L FEU Sodium (137-145) mmol/L Potassium (3.5-5.1) mmol/L Chloride (98-107) mmol/L Carbon Dioxide (22-30) mmol/L BUN (9-20) mg/dL Creatinine (0.66-1.25) mg/dL Glucose (74-99) mg/dL Phosphorus (2.5-4.5) mg/dL Magnesium (1.6-2.3) mg/dL Total Bilirubin (0.2-1.3) mg/dL AST (17-59) U/L Alkaline Phosphatase (38-126) U/L Troponin I 0.125 H* 0.113 H* (0.000-0.034) ng/mL Total Protein (6.3-8.2) g/dL Urine Protein Trace H (Negative) 07/04/19 07/04/19 Range/Units 14:55 14:55 RBC (4.30-5.90) m/uL Hgb (13.0-17.5) gm/dL Hct (39.0-53.0) % Plt Count (150-450) k/uL PT (9.0-12.0) sec INR (<1.2) D-Dimer (<0.60) mg/L FEU Sodium (137-145) mmol/L Potassium 2.8 L (3.5-5.1) mmol/L Chloride (98-107) mmol/L Carbon Dioxide (22-30) mmol/L BUN (9-20) mg/dL Creatinine (0.66-1.25) mg/dL Glucose (74-99) mg/dL Phosphorus (2.5-4.5) mg/dL Magnesium (1.6-2.3) mg/dL Total Bilirubin (0.2-1.3) mg/dL AST (17-59) U/L Alkaline Phosphatase (38-126) U/L Troponin I 0.113 H* (0.000-0.034) ng/mL Total Protein (6.3-8.2) g/dL Urine Protein (Negative) Thrombosis Risk Factor Assmnt - Choose All That Apply Each Factor Represents 1 point: Heart failure (<1month), Obesity (BMI >25), Swollen legs (current) Other congenital or acquired thrombophilia - If yes, enter type in comment: No Thrombosis Risk Factor Assessment Total Risk Factor Score: 3 Thrombosis Risk Factor Assessment Level: Moderate Risk
--- NOTE | 2019-07-04 19:05 | CONS ---
CONSULTATION REASON FOR CONSULT: Renal failure. HISTORY OF PRESENT ILLNESS: The patient is a 63-year-old male who was admitted to the hospital with complaints of dizziness and weakness. Patient's blood pressure has been low, with systolic earlier today at 88 mmHg. His serum creatinine was 2.9 mg/dL with BUN of 135. Previous creatinine has been at 1.5 to 1.8 mg/dL as of May of 2019. Patient denied any significant shortness of breath. He has had some cough. No history of fevers, nausea, vomiting or diarrhea. PAST MEDICAL HISTORY: Cardiomyopathy, EF 20% to 25%, hypertension, hyperlipidemia, CKD stage III, chronic atrial fibrillation. PAST SURGICAL HISTORY: Bilateral cataract surgery, removal of skin cancer, adenoidectomy, tonsillectomy. SOCIAL HISTORY: Negative for smoking, drug abuse or alcohol abuse. MEDICATIONS: Medications at home prior to admission included potassium, Synthroid, Coumadin, K-Dur, Aldactone, Zyloprim, Pepcid, midodrine, Cleocin, Lasix, Zaroxolyn, Lopressor. ALLERGIES: ALLERGIES include AMIODARONE, UNASYN. REVIEW OF SYSTEMS: As per HPI. Other systems negative. PHYSICAL EXAMINATION: Patient is comfortable, awake. He is not in any acute distress. Blood pressure this morning was 150/78, heart rate 84 per minute. Patient is afebrile. EXAMINATION OF THE HEART: S1 and S2. Examination of lower extremities shows chronic skin changes. No significant edema noted. NURSE REVIEWER exam grossly intact. LABS/IMAGING: Sodium 130, potassium 3.2, chloride 77. CO2 is 33, BUN 135, creatinine 2.9, hemoglobin of 8.4 g/dL. UA is quite benign with trace protein. Troponin 0.125. Chest x-ray shows cardiomegaly with mild congestion noted. ASSESSMENT: 1. Acute kidney injury, prerenal, maintained on IV fluids, which I will continue. Hold off on antihypertensive medications and diuretics. 2. History of hypotension, maintained on midodrine as outpatient. If blood pressure remains low, I will resume the midodrine. 3. Hyponatremia, which is hypovolemic. Expect improvement with saline administration. 4. Hypokalemia secondary to diuretics, status post replacement. 5. Chronic kidney disease, stage IIIB. Baseline creatinine about 1.8 to 1.6 mg/dL secondary to nephrosclerosis. UA is quite benign. PLAN: Continue with IV fluids. Repeat labs in a.m. Resume midodrine if blood pressure remains low. Thank you for this consultation. Will continue to follow the patient with you during her hospitalization. [id number] / IJN: [id number] /
[2019-07-04] MEDS ORDERED: POTASSIUM CHLORIDE ER 20 MEQ TAB.ER PO STA (19:50)
[2019-07-04] MEDS: FAMOTIDINE 20 MG TAB PO SCH (21:18)
[2019-07-04] MEDS ORDERED: POTASSIUM CHLORIDE ER 20 MEQ TAB.ER PO ONE (23:00)
[2019-07-05] MEDS ORDERED: WARFARIN 7.5 MG TAB PO ONE (00:16)
[2019-07-05] MEDS: POTASSIUM CHLORIDE 10 MEQ in WATER FOR INJECTION 1 100ML.BAG IVPB SCH ×2 (01:18→01:47)
[2019-07-05] MEDS: LEVOTHYROXINE 50 MCG TAB PO SCH (05:45)
[2019-07-05 05:56] LABS: HCT 50.4 % (39.0-53.0); HGB 16.5 gm/dL (13.0-17.5); MCH 29.9 pg (25.0-35.0); MCHC 32.8 g/dL (31.0-37.0); MCV 91.2 fL (80.0-100.0); Mean Platelet Volume 16.2; Platelet Count 85 k/uL (150-450); RBC 5.52 m/uL (4.30-5.90); RDW 15.5 % (11.5-15.5); WBC 6.9 k/uL (3.8-10.6)
[2019-07-05 06:01] LABS: INR 1.9 (<1.2); Prothrombin Time 18.4 sec (9.0-12.0)
[2019-07-05 06:10] LABS: Calcium 9.7 mg/dL (8.4-10.2); Magnesium 2.8 mg/dL (1.6-2.3); Potassium 3.1 mmol/L (3.5-5.1)
[2019-07-05 06:45] LABS: Large Platelets Present; Lymphocytes # (M) 0.97 k/uL (1.0-4.8); Monocytes # (M) 0.35 k/uL (0-1.0); Neutrophils # (M) 5.59 k/uL (1.3-7.7); Neutrophils % (M) 81 %; Nucleated Red Blood Cells 0 /100 WBC (0-0); Total Cells Counted 100
[2019-07-05] MEDS: SODIUM CHLORIDE 0.9% 1,000 ML IV SCH ×2 (08:07→20:22)
[2019-07-05] MEDS ORDERED: Potassium Replacement Protocol 1 EACH MISC MISCELLANE PRN (08:15)
[2019-07-05] MEDS: FAMOTIDINE 20 MG TAB PO SCH (08:49)
[2019-07-05] MEDS: ASPIRIN 81 MG PO SCH (08:49)
[2019-07-05] MEDS: METOPROLOL TARTRATE 25 MG TAB PO SCH ×2 (08:49→20:26)
[2019-07-05] MEDS: ALLOPURINOL 100 MG TAB PO SCH (08:49)
[2019-07-05] MEDS: POTASSIUM CHLORIDE ER 20 MEQ TAB.ER PO SCH ×2 (08:49→09:52)
[2019-07-05] MEDS ORDERED: ASPIRIN 325 MG TAB PO SCH (09:00)
--- NOTE | 2019-07-05 10:05 | P.PN ---
Subjective This is a pleasant 63-year-old male past medical history significant for chronic persistent atrial fibrillation, hypertension, dyslipidemia, chronic kidney disease and cardiomyopathy. He follows in the office with Dr. Goodwin. He is currently being treated for near syncope, hypotension and acute kidney injury. He is seen and examined resting comfortably laying flat in bed in no acute distress. He has had no further symptoms of dizziness. He has no chest pain, shortness of breath or palpitations. Blood pressure remains on the low side 93/64 with a heart rate of 76. Laboratory data reviewed, WBC 6.9, hemoglobin 16.5, platelets 85, sodium 134, potassium 3.1, INR 1.9, creatinine 2.45 with a GFR of 27, troponin 0.125, 0.113 and 0.113. GENERAL: Well-appearing, well-nourished and in no acute distress. Morbidly obese. NECK: Supple without JVD or thyromegaly. LUNGS: Breath sounds clear to auscultation bilaterally. Respiration equal and unlabored. No wheezes, rales or rhonchi. HEART: Irregular rate and rhythm with systolic ejection murmur at the left sternal border, no rubs or gallops. S1 and S2 heard. EXTREMITIES: Normal range of motion, no edema. No clubbing or cyanosis. Peripheral pulses intact. ASSESSMENT Dehydration with prerenal azotemia Near syncope, no LOC. Hypokalemia Nonischemic cardiomyopathy Chronic systolic heart failure Chronic persistent atrial fibrillation on long-term anticoagulation Acute kidney injury Troponin elevation secondary to acute kidney injury. If not suggestive of an acute coronary event. PLAN Replace potassium per protocol. Continue to hold diuretics. We will continue to follow and make recommendations accordingly. Nurse Practitioner note has been reviewed, I agree with a documented findings and plan of care. Patient was seen and examined. Objective - Vital Signs Vital signs: Vital Signs Temp 97.4 F L 07/05/19 04:00 Pulse 76 07/05/19 04:00 Resp 20 07/05/19 04:00 BP 93/64 07/05/19 04:00 Pulse Ox 92 L 07/05/19 04:00 Intake & Output 07/04/19 07/05/19 07/05/19 18:59 06:59 18:59 Intake Total 840 450 230 Output Total 925 550 Balance -85 -100 230 Weight 134 kg 133 kg Intake: Oral 840 450 230 Output: Urine 925 550 Other: # Voids 1 - Labs CBC & Chem 7: 07/05/19 05:38 07/05/19 05:38 Labs: Abnormal Lab Results - Last 24 Hours (Table) 07/04/19 07/04/19 07/05/19 Range/Units 14:55 14:55 05:38 Plt Count (150-450) k/uL Lymphocytes # (Manual) (1.0-4.8) k/uL PT (9.0-12.0) sec INR (<1.2) Sodium 134 L (137-145) mmol/L Potassium 2.8 L 3.1 L (3.5-5.1) mmol/L Chloride 87 L (98-107) mmol/L Carbon Dioxide 34 H (22-30) mmol/L BUN 118 H* (9-20) mg/dL Creatinine 2.45 H (0.66-1.25) mg/dL Glucose 123 H (74-99) mg/dL Magnesium 2.8 H (1.6-2.3) mg/dL Troponin I 0.113 H* (0.000-0.034) ng/mL Triglycerides 152 H (<150) mg/dL Cholesterol 221 H (<200) mg/dL LDL Cholesterol, Calc 156 H (0-99) mg/dL HDL Cholesterol 35 L (40-60) mg/dL 07/05/19 07/05/19 Range/Units 05:38 05:38 Plt Count 85 L (150-450) k/uL Lymphocytes # (Manual) 0.97 L (1.0-4.8) k/uL PT 18.4 H (9.0-12.0) sec INR 1.9 H (<1.2) Sodium (137-145) mmol/L Potassium (3.5-5.1) mmol/L Chloride (98-107) mmol/L Carbon Dioxide (22-30) mmol/L BUN (9-20) mg/dL Creatinine (0.66-1.25) mg/dL Glucose (74-99) mg/dL Magnesium (1.6-2.3) mg/dL Troponin I (0.000-0.034) ng/mL Triglycerides (<150) mg/dL Cholesterol (<200) mg/dL LDL Cholesterol, Calc (0-99) mg/dL HDL Cholesterol (40-60) mg/dL
[2019-07-05] MEDS ORDERED: POTASSIUM CHLORIDE ER 20 MEQ TAB.ER PO STA (10:36)
[2019-07-05] MEDS: MIDODRINE 5 MG TAB PO SCH ×2 (11:12→17:03)
--- NOTE | 2019-07-05 14:19 | PN ---
PROGRESS NOTE Patient is seen for followup for acute kidney injury mainly prerenal, currently maintained on IV fluids. Renal function has improved. Creatinine down to 2.4 from 2.9 on admission. Previous creatinine has been 1.5 to 1.6 mg/dL. The patient has also been hypokalemic and he is status post replacement. He is currently voiding and has had good urine output. PHYSICAL EXAMINATION: On examination, blood pressure was 104/46, heart rate 92 per minute. Patient is afebrile. Examination shows no significant edema bilateral lower extremities. Abdomen is soft, obese, nontender. Lungs are clear. LABS: Labs show sodium 134, potassium 3.1, chloride 87, CO2 is 34, BUN 118, creatinine 2.45, hemoglobin 16.5 g/dL. ASSESSMENT: 1. Acute kidney injury prerenal currently improving, continue with IV fluids. 2. Hypokalemia, status post replacement. We will continue to replace aggressively. 3. Hypotension with chronic hypotension as outpatient and maintained on midodrine. 4. Chronic kidney disease stage 3B. Baseline creatinine 1.6 to 1.8 mg/dL secondary to nephrosclerosis with benign urinalysis. PLAN: Continue IV fluids. Replace potassium and repeat labs in a.m. MMODL / IJN: [id number] /
--- NOTE | 2019-07-05 16:16 | P.PN ---
Progress Note - Text Progress Note Date: 07/05/19 Presenting complaint: Short of breath History of presenting complaint: This is a 63-year-old patient of Dr. Hall. Patient was in the hospital early January 2019. Chronic stable medical conditions include congestive heart failure EF 20-25%, atrial flutter fibrillation, left bundle-branch block, morbid obesity, hyperlipidemia, bilateral lower extremity venous insufficiency and chronic venous stasis, hypothyroid. Patient was in the hospital in May of this year with CHF exacerbation. Required Lasix drip. Prior to discharge creatinine had dropped down to 1.58. Patient is a roommate. Patient presents with feeling tired rundown. Dizzy lightheaded. nearly passing out. Appetite is okay. No fever or chills. Occasional cough. Patient in the ER does go to be in acute renal failure. No neurological symptoms. admitted with-acute kidney injury-prerenal leading to syncope. Diuretics were held. Started on IV fluids. Today-feels a bit better. Getting IV fluids. Did tolerate her diet. Review of systems: Was done for constitutional, cardiovascular, GI, pulmonary. relevant finding as above Active Medications Allopurinol (Zyloprim) 100 mg PO DAILY [facility] Last Admin: 07/05/19 08:49 Dose: 100 mg Documented by: Aspirin (Aspirin) 81 mg PO DAILY [facility] Last Admin: 07/05/19 08:49 Dose: 81 mg Documented by: Famotidine (Pepcid) 20 mg PO DAILY [facility] Last Admin: 07/05/19 08:49 Dose: 20 mg Documented by: Sodium Chloride (Saline 0.9%) 1,000 mls @ 75 mls/hr IV .[id number] [facility] Last Admin: 07/05/19 08:07 Dose: 75 mls/hr Documented by: Levothyroxine Sodium (Synthroid) 25 mcg PO MoWeFr@0630 [facility] Levothyroxine Sodium (Synthroid) 50 mcg PO SuTuThSa@0630 [facility] Last Admin: 07/05/19 05:45 Dose: 50 mcg Documented by: Metoprolol Tartrate (Lopressor) 25 mg PO BID [facility] Last Admin: 07/05/19 08:49 Dose: 25 mg Documented by: Midodrine (Proamatine) 5 mg PO AC-TID [facility] Last Admin: 07/05/19 11:12 Dose: 5 mg Documented by: Miscellaneous Information (Potassium Per Protocol) 1 each MISCELLANE DAILY PRN; Protocol PRN Reason: Per Protocol Morphine Sulfate (Morphine Sulfate (Inj)) 4 mg IV Q4HR PRN PRN Reason: Chest Pain Nitroglycerin (Nitrostat) 0.4 mg SUBLINGUAL Q5M PRN PRN Reason: Chest Pain Nystatin (Mycostatin Powder) 1 applic TOPICAL BID [facility] Silver Sulfadiazine (Silvadene Cream) 1 applic TOPICAL BID [facility] Last Admin: 07/05/19 08:49 Dose: 1 applic Documented by: Warfarin Sodium (Coumadin) 5 mg PO DAILY@1800 [facility]; Protocol Physical examination: VITAL SIGNS:97.7, 92, 20, 124/68, 93% on room air GENERAL: BMI 44.9, laying in bed, comfortable EYES: Pupils equal. Conjunctiva normal. HEENT: External appearance of nose and ears normal, oral cavity grossly normal. NECK: JVD unable to assess; masses not palpable. HEART: Heart sounds regular; no edema LUNGS: Respiratory rate increased, diminished breath sounds ABDOMEN: Soft, nontender, liver spleen not palpable, no masses palpable. PSYCH: AAO 3, motor affect normal EXTREMITIES: Chronic venous insufficiency and venous stasis changes of lower extremity and dry skin of the feet and disfigured nails INVESTIGATIONS, reviewed in the clinical context: White count 6.9 hemoglobin 16.5 while at 1.9 bun 118 creatinine 2.45 previous testing White count 6.7 hemoglobin 18.4 platelets 97 potassium 3.2 by, 33 bun 135 creatinine 2.99, INR 1.7 Troponin I 0.125, 0.113 June 12-bun 67 creatinine 1.58 EKG tracing personally reviewed by me-shows atrial fibrillation with left bu ndle-branch block pattern, PVCs Chest x-ray film personally reviewed by me-venous prominence though in a very obese patient Assessment: -Acute kidney injury, likely prerenal patient does take Aldactone, Zaroxolyn and Lasix at home.-, POA, slow to improve -Syncope from volume loss hypertension, POA -chronic congestive heart failure exacerbation from diastolic and systolic dysfunction EF 20-25%, POA -Persistent atrial fibrillation/flutter, better controlled, POA -Left bundle-branch block -Morbid obesity BMI 52.3 -Hyperlipidemia -Essential hypertension-history of -Hypotension from volume loss -Chronic kidney disease stage III from nephrosclerosis at her baseline baseline creatinine 1.7 -Bilateral lower extremity venous insufficiency and chronic venous stasis -Troponin leak from chronic kidney disease, no evidence of acute coronary syndrome -Coumadin monitoring -Hypothyroid -Hypokalemia from diuresis Plan: discussed with patient. Diuretics to continue to be held. Continue gentle hydration. Repeat labs in the morning.
[2019-07-05] MEDS: WARFARIN 5 MG TAB PO SCH (17:03)
[2019-07-05] MEDS: NYSTATIN 100,000 UNIT/GM POWD 15 GM TOPICAL SCH (20:22)
[2019-07-06] MEDS: LEVOTHYROXINE 50 MCG TAB PO SCH (05:59)
[2019-07-06 06:53] LABS: Calcium 9.5 mg/dL (8.4-10.2); Potassium 3.3 mmol/L (3.5-5.1)
[2019-07-06 07:01] LABS: INR 2.1 (<1.2); Prothrombin Time 20.5 sec (9.0-12.0)
[2019-07-06] MEDS: METOPROLOL TARTRATE 25 MG TAB PO SCH ×2 (09:49→21:50)
[2019-07-06] MEDS: ALLOPURINOL 100 MG TAB PO SCH (09:49)
[2019-07-06] MEDS: ASPIRIN 81 MG PO SCH (09:49)
[2019-07-06] MEDS: FAMOTIDINE 20 MG TAB PO SCH (09:49)
[2019-07-06] MEDS: NYSTATIN 100,000 UNIT/GM POWD 15 GM TOPICAL SCH ×2 (09:49→21:50)
[2019-07-06] MEDS: MIDODRINE 5 MG TAB PO SCH ×3 (09:49→17:46)
[2019-07-06] MEDS: SODIUM CHLORIDE 0.9% 1,000 ML IV SCH (11:50)
--- NOTE | 2019-07-06 11:56 | PN ---
PROGRESS NOTE Omid is a 63-year-old gentleman with history of hypertensive heart disease, cardiomyopathy, congestive heart failure and permanent atrial fibrillation, who was admitted to hospital with renal insufficiency, hypotension and cardiomyopathy. We held his diuretics, gave him IV fluids through yesterday and his blood pressure has improved and his renal functions are improving. I also started him on midodrine yesterday. On exam, the patient is afebrile. Heart rate is 78 beats, blood pressure is 120/70, respiratory rate is 18. Chest exam reveals good air entry bilaterally. Heart exam reveals first and second heart sounds, irregular rhythm. Abdomen is soft. Exam of extremities reveals bilateral 1+ edema. Peripheral pulses are felt. LABS: Labs show that the INR is 2.1. BUN is 98, creatinine is 2. ASSESSMENT: 1. Intravascular volume depletion. 2. Hypertensive heart disease. 3. Hypotension. 4. Chronic renal failure. PLAN: We will cut down the IV fluids today and just let him take oral hydration. MMARLENE / MARTAN: [id number] /
--- NOTE | 2019-07-06 14:26 | PN ---
PROGRESS NOTE The patient is seen for followup for acute kidney injury mainly prerenal, currently maintained on IV fluids with improving renal function. PHYSICAL EXAMINATION: On examination, blood pressure is 124/72, heart rate 78 per minute. Patient is afebrile. Examination of lower extremities shows no evidence of edema. Chronic skin changes are noted. Abdomen is soft. Morbidly obese. [employer] exam grossly intact. LABS: Show sodium 135, potassium 3.3, chloride 93, BUN 98, creatinine 2.12. ASSESSMENT: 1. Acute kidney injury prerenal currently improving with IV hydration. 2. Hypokalemia secondary to diuretics, currently being replaced and improving. 3. Chronic kidney disease stage IIIB secondary to nephrosclerosis benign urinalysis. Previous creatinine 1.6-1.8. 4. Hypotension secondary to hypovolemia with history of chronic hypotension maintained on midodrine. PLAN: Continue off diuretics. We can discontinue the IV fluids now. Repeat labs in a.m. Encourage increased oral intake. MMODL / IJN: [id number] /
--- NOTE | 2019-07-06 16:16 | P.PN ---
Progress Note - Text Progress Note Date: 07/06/19 Presenting complaint: Short of breath History of presenting complaint: This is a 63-year-old patient of Dr. Hall. Patient was in the hospital early January 2019. Chronic stable medical conditions include congestive heart failure EF 20-25%, atrial flutter fibrillation, left bundle-branch block, morbid obesity, hyperlipidemia, bilateral lower extremity venous insufficiency and chronic venous stasis, hypothyroid. Patient was in the hospital in May of this year with CHF exacerbation. Required Lasix drip. Prior to discharge creatinine had dropped down to 1.58. Patient is a roommate. Patient presents with feeling tired rundown. Dizzy lightheaded. nearly passing out. Appetite is okay. No fever or chills. Occasional cough. Patient in the ER does go to be in acute renal failure. No neurological symptoms. admitted with-acute kidney injury-prerenal leading to syncope. Diuretics were held. Started on IV fluids. Today-feeling better. IV fluids discontinued by cardiology. No new issues Review of systems: Was done for constitutional, cardiovascular, GI, pulmonary. relevant finding as above Active Medications Allopurinol (Zyloprim) 100 mg PO DAILY [facility] Last Admin: 07/06/19 09:49 Dose: 100 mg Documented by: Aspirin (Aspirin) 81 mg PO DAILY [facility] Last Admin: 07/06/19 09:49 Dose: 81 mg Documented by: Famotidine (Pepcid) 20 mg PO DAILY [facility] Last Admin: 07/06/19 09:49 Dose: 20 mg Documented by: Sodium Chloride (Saline 0.9%) 1,000 mls @ 20 mls/hr IV .Q24H [facility] Last Admin: 07/06/19 11:50 Dose: Not Given Documented by: Levothyroxine Sodium (Synthroid) 25 mcg PO MoWeFr@0630 [facility] Levothyroxine Sodium (Synthroid) 50 mcg PO SuTuThSa@0630 [facility] Last Admin: 07/06/19 05:59 Dose: 50 mcg Documented by: Metoprolol Tartrate (Lopressor) 25 mg PO BID [facility] Last Admin: 07/06/19 09:49 Dose: 25 mg Documented by: Midodrine (Proamatine) 5 mg PO AC-TID [facility] Last Admin: 07/06/19 12:50 Dose: 5 mg Documented by: Miscellaneous Information (Potassium Per Protocol) 1 each MISCELLANE DAILY PRN; Protocol PRN Reason: Per Protocol Morphine Sulfate (Morphine Sulfate (Inj)) 4 mg IV Q4HR PRN PRN Reason: Chest Pain Nitroglycerin (Nitrostat) 0.4 mg SUBLINGUAL Q5M PRN PRN Reason: Chest Pain Nystatin (Mycostatin Powder) 1 applic TOPICAL BID [facility] Last Admin: 07/06/19 09:49 Dose: 1 applic Documented by: Silver Sulfadiazine (Silvadene Cream) 1 applic TOPICAL BID [facility] Last Admin: 07/06/19 09:49 Dose: 1 applic Documented by: Warfarin Sodium (Coumadin) 5 mg PO DAILY@1800 [facility]; Protocol Last Admin: 07/05/19 17:03 Dose: 5 mg Documented by: Physical examination: VITAL SIGNS: 97.4, 57, 20, 110/70, 96% on room air GENERAL: Propped up in bed, comfortable EYES: Pupils equal. Conjunctiva normal. HEENT: External appearance of nose and ears normal, oral cavity grossly normal. NECK: JVD unable to assess; masses not palpable. HEART: Heart sounds regular; no edema LUNGS: Respiratory rate increased, diminished breath sounds ABDOMEN: Soft, nontender, liver spleen not palpable, no masses palpable. PSYCH: AAO 3, motor affect normal EXTREMITIES: Chronic venous insufficiency and venous stasis changes of lower extremity and dry skin of the feet and disfigured nails INVESTIGATIONS, reviewed in the clinical context: Potassium 3.3 bun 98 creatinine 2.12 previous testing White count 6.7 hemoglobin 18.4 platelets 97 potassium 3.2 by, 33 bun 135 creatinine 2.99, INR 1.7 Troponin I 0.125, 0.113 June 12-bun 67 creatinine 1.58 EKG tracing personally reviewed by me-shows atrial fibrillation with left bundle-branch block pattern, PVCs Chest x-ray film personally reviewed by me-venous prominence though in a very obese patient Assessment: -Acute kidney injury, likely prerenal patient does take Aldactone, Zaroxolyn and Lasix at home.-, POA, slow to improve -Syncope from volume loss hypertension, POA -chronic congestive heart failure exacerbation from diastolic and systolic dysfunction EF 20-25%, POA -Persistent atrial fibrillation/flutter, better controlled, POA -Left bundle-branch block -Morbid obesity BMI 52.3 -Hyperlipidemia -Essential hypertension-history of -Hypotension from volume loss -Chronic kidney disease stage III from nephrosclerosis at her baseline baseline creatinine 1.7 -Bilateral lower extremity venous insufficiency and chronic venous stasis -Troponin leak from chronic kidney disease, no evidence of acute coronary syndrome -Coumadin monitoring -Hypothyroid -Hypokalemia from diuresis Plan: IV fluids were stopped. Continue to hold diuretics. Encourage oral intake. Discussed with patient.
[2019-07-06] MEDS: WARFARIN 5 MG TAB PO SCH (17:46)
[2019-07-06] MEDS: LORATADINE 10 MG TAB PO SCH (21:50)
[2019-07-07] MEDS: MIDODRINE 5 MG TAB PO SCH ×3 (06:01→17:20)
[2019-07-07] MEDS ORDERED: LEVOTHYROXINE 25 MCG TAB PO SCH (06:30)
[2019-07-07 06:42] LABS: HCT 49.4 % (39.0-53.0); MCH 29.8 pg (25.0-35.0); MCHC 32.4 g/dL (31.0-37.0); MCV 92.2 fL (80.0-100.0); Mean Platelet Volume 16.5; Platelet Count 82 k/uL (150-450); RBC 5.36 m/uL (4.30-5.90); RDW 15.5 % (11.5-15.5)
[2019-07-07 06:49] LABS: Calcium 9.4 mg/dL (8.4-10.2); Prothrombin Time 19.7 sec (9.0-12.0)
[2019-07-07 07:10] LABS: Potassium 2.6 mmol/L (3.5-5.1)
[2019-07-07 07:29] LABS: Eosinophils # (M) 0.24 k/uL (0-0.7); Lymphocytes # (M) 1.12 k/uL (1.0-4.8); Monocytes # (M) 1.04 k/uL (0-1.0); Neutrophils % (M) 70 %; Nucleated Red Blood Cells 0 /100 WBC (0-0); Total Cells Counted 100
[2019-07-07 07:31] LABS: Large Platelets Present
[2019-07-07] MEDS ORDERED: FUROSEMIDE 40 MG TAB PO STA (09:05)
--- NOTE | 2019-07-07 09:07 | P.PN ---
Subjective Patient is seen in follow-up for acute kidney injury on chronic kidney disease. Renal function improving with IV hydration. Currently off IV fluids. Oral intake is fair. Good urine output. No vomiting or diarrhea. Vital signs are stable. General: The patient appeared well nourished and normally developed. HEENT: Head exam is unremarkable. Neck is without jugular venous distension. LUNGS: Lungs are clear to auscultation and percussion. Breath sounds decreased. HEART: Rate and Rhythm are regular. ABDOMEN: Soft. Obese. EXTREMITITES: Trace edema. Chronic changes noted. Objective - Vital Signs Vital signs: Vital Signs Temp 96.8 F L 07/07/19 04:00 Pulse 79 07/07/19 04:00 Resp 20 07/07/19 04:00 BP 111/56 07/07/19 04:00 Pulse Ox 92 L 07/07/19 04:00 Intake & Output 07/06/19 07/07/19 07/07/19 18:59 06:59 18:59 Intake Total 1150 240 Output Total 1600 900 Balance -450 -660 Weight 135.6 kg Intake: Oral 1150 240 Output: Urine 1600 900 Other: # Voids 1 1 - Labs CBC & Chem 7: 07/07/19 05:57 07/07/19 05:57 Labs: Abnormal Lab Results - Last 24 Hours (Table) 07/07/19 07/07/19 07/07/19 Range/Units 05:57 05:57 05:57 Plt Count 82 L (150-450) k/uL Monocytes # (Manual) 1.04 H (0-1.0) k/uL PT 19.7 H (9.0-12.0) sec INR 2.0 H (<1.2) Potassium 2.6 L* (3.5-5.1) mmol/L Chloride 93 L (98-107) mmol/L Carbon Dioxide 32 H (22-30) mmol/L BUN 77 H (9-20) mg/dL Creatinine 1.83 H (0.66-1.25) mg/dL Assessment and Plan Plan: Assessment: 1. Acute kidney injury mostly prerenal improving with IV hydration. Creatinine down to 1.83 today. 2. Chronic kidney disease stage III with baseline creatinine in the range of 1.6-1.8. 3. Hypokalemia from poor oral intake. Rule out magnesium deficiency. 4. Chronic systolic CHF with ejection fraction of 20-25%. Plan: Encourage oral intake. Hold diuretics. Replace potassium. 80 mEq today. Repeat potassium level this evening.
[2019-07-07] MEDS: ALLOPURINOL 100 MG TAB PO SCH (09:26)
[2019-07-07] MEDS: POTASSIUM CHLORIDE ER 20 MEQ TAB.ER PO SCH ×2 (09:26→09:29)
[2019-07-07] MEDS: FAMOTIDINE 20 MG TAB PO SCH (09:26)
[2019-07-07] MEDS: ASPIRIN 81 MG PO SCH (09:26)
[2019-07-07] MEDS: NYSTATIN 100,000 UNIT/GM POWD 15 GM TOPICAL SCH ×2 (09:27→21:47)
[2019-07-07] MEDS: LORATADINE 10 MG TAB PO SCH ×2 (09:27→21:47)
[2019-07-07] MEDS: METOPROLOL TARTRATE 25 MG TAB PO SCH ×2 (09:27→21:47)
[2019-07-07] MEDS ORDERED: POTASSIUM CHLORIDE ER 20 MEQ TAB.ER PO STA ×2 (10:57→16:33)
[2019-07-07] MEDS: SODIUM CHLORIDE 0.9% 1,000 ML IV SCH (11:28)
[2019-07-07] MEDS ORDERED: POTASSIUM CHLORIDE ER 20 MEQ TAB.ER PO ONE (12:30)
--- NOTE | 2019-07-07 13:37 | PN ---
PROGRESS NOTE Mr. López is a gentleman with nonischemic cardiomyopathy, heart failure came in dehydrated. After hydration, his creatinine has improved. He feels better. He has no further dizziness. Blood pressure is acceptable. He is doing better. He remains in sinus rhythm. I am recommending that we resume Lasix 40 mg p.o. daily. Vitals are stable. No JVD. S1, S2 heard normally. A short systolic murmur noted. Lungs reveal improved air entry. Abdomen and lower extremity exam unchanged. Plan is to increase activity, resume oral Lasix and see how he does clinically. Hopefully we can plan for discharge for this patient tomorrow on a somewhat lower dose of Lasix then he went home last time. Discussed my thoughts in detail with the patient. CARINE / IJN: [id number] /
[2019-07-07 15:52] LABS: Calcium 9.6 mg/dL (8.4-10.2); Potassium 3.7 mmol/L (3.5-5.1)
[2019-07-07] MEDS: WARFARIN 5 MG TAB PO SCH (17:20)
--- NOTE | 2019-07-07 20:59 | P.PN ---
Progress Note - Text Progress Note Date: 07/07/19 Presenting complaint: Short of breath History of presenting complaint: This is a 63-year-old patient of Dr. Hall. Patient was in the hospital early January 2019. Chronic stable medical conditions include congestive heart failure EF 20-25%, atrial flutter fibrillation, left bundle-branch block, morbid obesity, hyperlipidemia, bilateral lower extremity venous insufficiency and chronic venous stasis, hypothyroid. Patient was in the hospital in May of this year with CHF exacerbation. Required Lasix drip. Prior to discharge creatinine had dropped down to 1.58. Patient is a roommate. Patient presents with feeling tired rundown. Dizzy lightheaded. nearly passing out. Appetite is okay. No fever or chills. Occasional cough. Patient in the ER does go to be in acute renal failure. No neurological symptoms. admitted with-acute kidney injury-prerenal leading to syncope. Diuretics were held. Started on IV fluids. Today-feeling better. Tired. Started on diuretic. Breathing stable. Review of systems: Was done for constitutional, cardiovascular, GI, pulmonary. relevant finding as above Active Medications Allopurinol (Zyloprim) 100 mg PO DAILY [facility] Last Admin: 07/07/19 09:26 Dose: 100 mg Documented by: Aspirin (Aspirin) 81 mg PO DAILY [facility] Last Admin: 07/07/19 09:26 Dose: 81 mg Documented by: Famotidine (Pepcid) 20 mg PO DAILY [facility] Last Admin: 07/07/19 09:26 Dose: 20 mg Documented by: Sodium Chloride (Saline 0.9%) 1,000 mls @ 20 mls/hr IV .Q24H [facility] Last Admin: 07/07/19 11:28 Dose: 20 mls/hr Documented by: Levothyroxine Sodium (Synthroid) 25 mcg PO MoWeFr@0630 [facility] Last Admin: 07/07/19 06:01 Dose: 25 mcg Documented by: Levothyroxine Sodium (Synthroid) 50 mcg PO SuTuThSa@0630 [facility] Last Admin: 07/06/19 05:59 Dose: 50 mcg Documented by: Loratadine (Claritin) 5 mg PO Q12HR [facility] Last Admin: 07/07/19 09:27 Dose: 5 mg Documented by: Metoprolol Tartrate (Lopressor) 25 mg PO BID [facility] Last Admin: 07/07/19 09:27 Dose: 25 mg Documented by: Midodrine (Proamatine) 5 mg PO AC-TID [facility] Last Admin: 07/07/19 17:20 Dose: 5 mg Documented by: Miscellaneous Information (Potassium Per Protocol) 1 each MISCELLANE DAILY PRN; Protocol PRN Reason: Per Protocol Morphine Sulfate (Morphine Sulfate (Inj)) 4 mg IV Q4HR PRN PRN Reason: Chest Pain Nitroglycerin (Nitrostat) 0.4 mg SUBLINGUAL Q5M PRN PRN Reason: Chest Pain Nystatin (Mycostatin Powder) 1 applic TOPICAL BID [facility] Last Admin: 07/07/19 09:27 Dose: 1 applic Documented by: Silver Sulfadiazine (Silvadene Cream) 1 applic TOPICAL BID [facility] Last Admin: 07/07/19 09: Dose: 1 applic Documented by: Warfarin Sodium (Coumadin) 5 mg PO DAILY@1800 [facility]; Protocol Last Admin: 07/07/19 17:20 Dose: 5 mg Documented by: Physical examination: VITAL SIGNS: 98.8, 95, 18, 88/58, 98% on room air GENERAL: Laying in bed, comfortable EYES: Pupils equal. Conjunctiva normal. HEENT: External appearance of nose and ears normal, oral cavity grossly normal. NECK: JVD unable to assess; masses not palpable. HEART: Heart sounds regular; no edema LUNGS: Respiratory rate increased, diminished breath sounds ABDOMEN: Soft, nontender, liver spleen not palpable, no masses palpable. PSYCH: AAO 3, motor affect normal EXTREMITIES: Chronic venous insufficiency and venous stasis changes of lower extremity and dry skin of the feet and disfigured nails INVESTIGATIONS, reviewed in the clinical context: Potassium 2.6 bun 77 creatinine 1.83 previous testing White count 6.7 hemoglobin 18.4 platelets 97 potassium 3.2 by, 33 bun 135 creatinine 2.99, INR 1.7 Troponin I 0.125, 0.113 June 12-bun 67 creatinine 1.58 EKG tracing personally reviewed by me-shows atrial fibrillation with left bundle-branch block pattern, PVCs Chest x-ray film personally reviewed by me-venous prominence though in a very obese patient Assessment: -Acute kidney injury, likely prerenal patient does take Aldactone, Zaroxolyn and Lasix at home.-, POA, slow to improve -Syncope from volume loss hypertension, POA -chronic congestive heart failure exacerbation from diastolic and systolic dysfunction EF 20-25%, POA -Persistent atrial fibrillation/flutter, better controlled, POA -Left bundle-branch block -Morbid obesity BMI 52.3 -Hyperlipidemia -Essential hypertension-history of -Hypotension from volume loss -Chronic kidney disease stage III from nephrosclerosis at her baseline baseline creatinine 1.7 -Bilateral lower extremity venous insufficiency and chronic venous stasis -Troponin leak from chronic kidney disease, no evidence of acute coronary syndrome -Coumadin monitoring -Hypothyroid -Hypokalemia from diuresis Plan: Potassium to replace. Recheck. Other medications to continue. Looking at discharge in next 24 hours.
[2019-07-08] MEDS: MIDODRINE 5 MG TAB PO SCH ×2 (06:30→13:51)
[2019-07-08] MEDS: LEVOTHYROXINE 50 MCG TAB PO SCH (06:30)
[2019-07-08 06:31] LABS: Basophils # (A) 0.1 k/uL (0-0.2); Basophils % (A) 1 %; Eosinophils # (A) 0.1 k/uL (0-0.7); Eosinophils % (A) 1 %; HCT 49.8 % (39.0-53.0); Lymphocytes # (A) 1.3 k/uL (1.0-4.8); Lymphocytes % (A) 17 %; MCH 29.8 pg (25.0-35.0); MCHC 32.1 g/dL (31.0-37.0); MCV 92.9 fL (80.0-100.0); Mean Platelet Volume 16.5; Monocytes # (A) 0.7 k/uL (0-1.0); Monocytes % (A) 9 %; Neutrophils # (A) 5.4 k/uL (1.3-7.7); Neutrophils % (A) 70 %; RBC 5.36 m/uL (4.30-5.90); RDW 15.6 % (11.5-15.5); WBC 7.7 k/uL (3.8-10.6)
[2019-07-08 06:40] LABS: Platelet Count 57 k/uL (150-450)
[2019-07-08 06:41] LABS: Calcium 9.5 mg/dL (8.4-10.2); Magnesium 2.1 mg/dL (1.6-2.3); Potassium 3.6 mmol/L (3.5-5.1)
[2019-07-08 07:53] VITALS: TEMP 97.9
[2019-07-08] MEDS ORDERED: FUROSEMIDE 40 MG TAB PO SCH (09:00)
[2019-07-08] MEDS: METOPROLOL TARTRATE 25 MG TAB PO SCH (09:00)
[2019-07-08] MEDS: LORATADINE 10 MG TAB PO SCH (09:00)
[2019-07-08] MEDS: NYSTATIN 100,000 UNIT/GM POWD 15 GM TOPICAL SCH (09:01)
[2019-07-08] MEDS: FAMOTIDINE 20 MG TAB PO SCH (09:01)
[2019-07-08] MEDS: ASPIRIN 81 MG PO SCH (09:01)
[2019-07-08] MEDS: ALLOPURINOL 100 MG TAB PO SCH (09:01)
[2019-07-08] MEDS ORDERED: POTASSIUM CHLORIDE ER 20 MEQ TAB.ER PO STA (09:04)
--- NOTE | 2019-07-08 09:06 | P.PN ---
Subjective Patient is seen in follow-up for acute kidney injury on chronic kidney disease. Renal function improved with IV hydration. Currently off IV fluids. Oral intake is fair. Good urine output. No vomiting or diarrhea. Vital signs are stable. General: The patient appeared well nourished and normally developed. HEENT: Head exam is unremarkable. Neck is without jugular venous distension. LUNGS: Lungs are clear to auscultation and percussion. Breath sounds decreased. HEART: Rate and Rhythm are regular. ABDOMEN: Soft. Obese. EXTREMITITES: Trace edema. Chronic changes noted. Objective - Vital Signs Vital signs: Vital Signs Temp 97.9 F 07/08/19 07:52 Pulse 92 07/08/19 07:52 Resp 16 07/08/19 07:52 BP 147/61 07/08/19 07:52 Pulse Ox 96 07/08/19 07:52 Intake & Output 07/07/19 07/08/19 07/08/19 18:59 06:59 18:59 Intake Total 1270 240 240 Output Total 825 1250 Balance 445 -1010 240 Weight 138.5 kg Intake: Intake, IV Titration 240 Amount Sodium Chloride 0.9% 1, 240 000 ml @ 20 mls/hr IV . Q24H [facility] Rx#:[id number] Oral 1030 240 240 Output: Urine 825 1250 Other: # Voids 300 1 - Labs CBC & Chem 7: 07/08/19 05:38 07/08/19 05:38 Labs: Abnormal Lab Results - Last 24 Hours (Table) 07/07/19 07/08/19 07/08/19 Range/Units 15:12 05:38 05:38 RDW 15.6 H (11.5-15.5) % Plt Count 57 L (150-450) k/uL Sodium 136 L (137-145) mmol/L Chloride 94 L 95 L (98-107) mmol/L Carbon Dioxide 32 H (22-30) mmol/L BUN 68 H 64 H (9-20) mg/dL Creatinine 1.82 H 1.68 H (0.66-1.25) mg/dL Glucose 129 H (74-99) mg/dL Assessment and Plan Plan: Assessment: 1. Acute kidney injury mostly prerenal improving with IV hydration. Creatinine down to 1.68 today. 2. Chronic kidney disease stage III with baseline creatinine in the range of 1.6-1.8. 3. Hypokalemia from poor oral intake. Magnesium normal. Better post replacement. 4. Chronic systolic CHF with ejection fraction of 20-25%. Plan: Encourage oral intake. Oral Lasix has been resumed. Replace potassium. 40 mEq today. I will also add maintenance potassium supplementation. Anticipate discharge soon. Repeat basic metabolic panel in 2-3 days postdisc harge. Follow up outpatient in 1-2 weeks.
[2019-07-08 11:32] VITALS: BP 126/82; PULSE 124; RESP 22
--- NOTE | 2019-07-08 12:35 | PN ---
PROGRESS NOTE Mr. López was admitted with dehydration and near syncope. He may have some autonomic dysfunction as well. However, he is breathing better easier. Creatinine is down and we will increase the Lasix to 40 mg b.i.d. increase oral fluids. We will increase activity and whenever it is okay, he can be discharged from a cardiac standpoint. There are other issues that need to be resolved, but from a cardiac standpoint, I would leave him on 40 mg b.i.d. of Lasix and then he can be discharged and see Dr. Goodwin in 3 weeks or so. Vitals are stable. No JVD. S1, S2 heard normally, irregular rate and rhythm noted. Short systolic murmur noted. Lungs reveal decent air entry. Abdomen is soft. Lower extremities reveal diminished pulses. No edema. MMODL / IJN: [id number] /
[2019-07-08] MEDS ORDERED: METOPROLOL TARTRATE 25 MG TAB PO SCH (16:00)
--- NOTE | 2019-07-08 20:59 | P.DS ---
Providers Date of admission: 07/04/19 06:17 Expected date of discharge: 07/08/19 Attending physician: Carter Marte Consults: 07/04/19 06:18 Consult Physician Routine Consulting Provider: Chuck Rosas Consult Reason/Comments: chf Do you want consulting provider notified?: Yes Consult Physician Urgent Consulting Provider: Tegan Paz Consult Reason/Comments: arf Do you want consulting provider notified?: Yes Primary care physician: Sherman Hall Hospital Course: Presenting complaint: Syncope History of presenting complaint: This is a 63-year-old patient of Dr. Hall. Patient was in the hospital early January 2019. Chronic stable medical conditions include congestive heart failure EF 20-25%, atrial flutter fibrillation, left bundle-branch block, morbid obesity, hyperlipidemia, bilateral lower extremity venous insufficiency and chronic venous stasis, hypothyroid. Patient was in the hospital in May of this year with CHF exacerbation. Required Lasix drip. Prior to discharge creatinine had dropped down to 1.58. Patient is a roommate. Patient presents with feeling tired rundown. Dizzy lightheaded. nearly passing out. Appetite is okay. No fever or chills. Occasional cough. Patient in the ER does go to be in acute renal failure. No neurological symptoms. admitted with-acute kidney injury-prerenal leading to syncope. Diuretics were held. Started on IV fluids. Admission labs included a bone (35 dictated of 2.99. By the time of discharge had come down to 64/1.68. Today-feeling better. Tired. Diuretics resumed. Zaroxolyn discontinued. Discussed with patient. Feeling well. Heart rate was going up. Lopressor increased to 50 mg 3 times a day today Discussion and discharge planning more than 35 minutes Consultation: Dr. PEDRO Butt from cardiology Dr. Miller from nephrology Physical examination: VITAL SIGNS: 97.9, 92, 16, 1 4761, 96% on 2 L GENERAL: Laying in bed, comfortable EYES: Pupils equal. Conjunctiva normal. HEENT: External appearance of nose and ears normal, oral cavity grossly normal. NECK: JVD unable to assess; masses not palpable. HEART: Heart sounds regular; no edema LUNGS: Respiratory rate increased, diminished breath sounds ABDOMEN: Soft, nontender, liver spleen not palpable, no masses palpable. PSYCH: AAO 3, motor affect normal EXTREMITIES: Chronic venous insufficiency and venous stasis changes of lower extremity and dry skin of the feet and disfigured nails INVESTIGATIONS, reviewed in the clinical context: Potassium 2.6 bun 77 creatinine 1.83 previous testing White count 6.7 hemoglobin 18.4 platelets 97 potassium 3.2 by, 33 bun 135 creatinine 2.99, INR 1.7 Troponin I 0.125, 0.113 June 12-bun 67 creatinine 1.58 EKG tracing personally reviewed by me-shows atrial fibrillation with left b undle-branch block pattern, PVCs Chest x-ray film personally reviewed by me-venous prominence though in a very obese patient Assessment: -Acute kidney injury, likely prerenal patient does take Aldactone, Zaroxolyn and Lasix at home.-, POA, -Syncope from volume loss hypotension, POA -chronic congestive heart failure exacerbation from diastolic and systolic dysfunction EF 20-25%, POA -Persistent atrial fibrillation/flutter, better controlled, POA -Left bundle-branch block -Morbid obesity BMI 52.3 -Hyperlipidemia -Essential hypertension-history of -Hypotension from volume loss -Chronic kidney disease stage III from nephrosclerosis at her baseline baseline creatinine 1.7 -Bilateral lower extremity venous insufficiency and chronic venous stasis -Troponin leak from chronic kidney disease, no evidence of acute coronary syndrome -Coumadin monitoring -Hypothyroid -Hypokalemia from diuresis Disposition: Home Patient Condition at Discharge: Stable Plan - Discharge Summary New Discharge Prescriptions: New Aspirin 81 mg PO DAILY chew Levothyroxine Sodium [Levoxyl] 37.5 mg PO DAILY #30 tab Nystatin 100,000 Unit/gm Powd [Mycostatin Powder] 1 applic TOPICAL BID applic Continue Potassium Chloride ER [K-Dur 20] 20 meq PO DAILY Spironolactone [Aldactone] 25 mg PO DAILY #30 tab Midodrine [ProAmatine] 5 mg PO AC-TID #30 tab Allopurinol [Zyloprim] 100 mg PO DAILY #1 tablet Famotidine [Pepcid] 20 mg PO BID #1 tablet Warfarin Sodium [Coumadin] 7.5 mg PO FR Warfarin Sodium 5 mg PO SUMOTUWETHSA SILVER sulfADIAZINE CREAM [Silvadene Cream] 1 applic TOPICAL BID applic Metoprolol Tartrate [Lopressor] 25 mg PO BID #0 Changed Furosemide [Lasix] 40 mg PO BID #60 tab Discontinued Levothyroxine Sodium [Synthroid] 25 mcg PO MOWEFR Levothyroxine Sodium [Synthroid] 50 mcg PO SUTUTHSA Metolazone [Zaroxolyn] 2.5 mg PO DAILY #30 tab Discharge Medication List Potassium Chloride ER [K-Dur 20] 20 meq PO DAILY 04/17/17 [History] Spironolactone [Aldactone] 25 mg PO DAILY #30 tab 03/08/18 [Rx] Allopurinol [Zyloprim] 100 mg PO DAILY #1 tablet 01/31/19 [Rx] Famotidine [Pepcid] 20 mg PO BID #1 tablet 01/31/19 [Rx] Midodrine [ProAmatine] 5 mg PO AC-TID #30 tab 01/31/19 [Rx] Warfarin Sodium 5 mg PO SUMOTUWETHSA 06/05/19 [History] Warfarin Sodium [Coumadin] 7.5 mg PO FR 06/05/19 [History] Metoprolol Tartrate [Lopressor] 25 mg PO BID #0 06/13/19 [Rx] SILVER sulfADIAZINE CREAM [Silvadene Cream] 1 applic TOPICAL BID applic 06/13/19 [Rx] Aspirin 81 mg PO DAILY chew 07/08/19 [Rx] Furosemide [Lasix] 40 mg PO BID #60 tab 07/08/19 [Rx] Levothyroxine Sodium [Levoxyl] 37.5 mg PO DAILY #30 tab 07/08/19 [Rx] Nystatin 100,000 Unit/gm Powd [Mycostatin Powder] 1 applic TOPICAL BID applic 07/08/19 [Rx] Follow up Appointment(s)/Referral(s): Sherman Hall MD [Primary Care Provider] - 07/10/19 1:00 pm Kana Miller DO [STAFF PHYSICIAN] - 07/23/19 10:40 am Sal Goodwin MD [STAFF PHYSICIAN] - 07/24/19 4:15 pm Patient Instructions/Handouts: Heart Failure (ER) Activity/Diet/Wound Care/Special Instructions: bmp - 3 days Fluid restrict-2000 mL a day Discharge Disposition: HOME SELF-CARE
[2019-07-09] MEDS ORDERED: POTASSIUM CHLORIDE ER 20 MEQ TAB.ER PO SCH (09:00)
--- NOTE | 2019-07-10 13:01 | CDI ---
Documentation Clarification Form Date: 07/10/19 From: Grace Morgan Phone: If you have a question about this query, please contact Haleigh Solomon Counter Maker at [phone] between 8am and 5pm. Admit Date: 07/04/19 Discharge Date:07/08/19 Patient Name: Omid López Visit Number: [id number] ATTENTION: The Clinical Documentation Specialists (CDI) and [facility] Coding Staff appreciate your assistance in clarifying documentation. Please respond to the clarification below the line at the bottom and electronically sign. The CDI & [facility] Coding staff will review the response and follow-up if needed. Please note: Queries are made part of the Legal Health Record. If you have any questions, please contact the author of this message via ITS. Dear Dr. Marte Chronic congestive heart failure exacerbation from diastolic and systolic dysfunction EF 20 - 25% is documented in the H&P, discharge summary and your progress notes. History/Risk Factors: Acute kidney injury, Probably nonischemic cardiomyopathy, hypertension, chronic persistent atrial fibrillation Clinical Indicators: No edema until 07/05 then 1+ edema bilaterally, denies chest pain or shortness of breath VS/Pulse OX: T. 97.5, P. 93, R. 20, BP 106/88 then 97.74 one hours later, Pulse Ox. 96 on admit then 91% one hour later BNP: 9420 Echocardiogram Results: Not done this admission but documentation statues EF 20 - 25% Chest X Ray: Cardiomegaly and mild congestion but no obvious heart failure. Treatment: 20 mg PO lasix x1 on 07/03, 40 mg PO lasix x1 on 07/06. Patient got 2 liters NS bolus on 07/03 then at 130 mls/hr In your professional opinion, can you please clarify the acuity of CHF if known? Acute Chronic Acute on Chronic Unable to Determine Other, please specify Chronic CHF MTDD
== END 2019-07-08 15:22 | disposition home or self-care (01) | DRG 683 ==
LOC: EC 02:15 → 3SCARD 06:17
PROVIDERS: ADMIT Hospitalist; ATTEND Hospitalist
DX: N17.9 Acute kidney failure, unspecified (principal); E87.1 Hypo-osmolality and hyponatremia; I13.0 Hypertensive heart and chronic kidney disease with heart failure and stage 1 through stage 4 chronic kidney disease, or unspecified chronic kidney disease; I42.8 Other cardiomyopathies; I48.92 Unspecified atrial flutter; I48.19 Other persistent atrial fibrillation; Z68.43 Body mass index [BMI] 50.0-59.9, adult; I50.42 Chronic combined systolic (congestive) and diastolic (congestive) heart failure; G90.9 Disorder of the autonomic nervous system, unspecified; N18.3 Chronic kidney disease, stage 3 (moderate); I95.9 Hypotension, unspecified; T50.2X5A Adverse effect of carbonic-anhydrase inhibitors, benzothiadiazides and other diuretics, initial encounter; R55 Syncope and collapse; R79.89 Other specified abnormal findings of blood chemistry; E03.9 Hypothyroidism, unspecified; E66.01 Morbid (severe) obesity due to excess calories; E78.5 Hyperlipidemia, unspecified; E86.0 Dehydration; E86.1 Hypovolemia; E87.6 Hypokalemia; I25.10 Atherosclerotic heart disease of native coronary artery without angina pectoris; I25.2 Old myocardial infarction; I44.7 Left bundle-branch block, unspecified; I87.2 Venous insufficiency (chronic) (peripheral); I87.8 Other specified disorders of veins; R01.1 Cardiac murmur, unspecified; Z79.01 Long term (current) use of anticoagulants; Z79.890 Hormone replacement therapy; Z79.899 Other long term (current) drug therapy; Z88.1 Allergy status to other antibiotic agents; Z88.0 Allergy status to penicillin; Z88.8 Allergy status to other drugs, medicaments and biological substances; Z85.828 Personal history of other malignant neoplasm of skin; Z87.01 Personal history of pneumonia (recurrent); Z98.42 Cataract extraction status, left eye; Z98.41 Cataract extraction status, right eye; Z96.1 Presence of intraocular lens; Z80.9 Family history of malignant neoplasm, unspecified; Z82.3 Family history of stroke
CPT/HCPCS: 36415; 70450; 71046; 80048; 80053; 80061; 81003; 82550; 82553; 83735; 83880; 84100; 84132; 84484; 85025; 85379; 85610; 85730; 93005; 96361; 96374; 99285

== ENCOUNTER 2019-09-12 15:30 | Emergency (ER) | payer BC, OTHER ==
[2019-09-12 15:36] VITALS: TEMP 97.7
--- NOTE | 2019-09-12 16:48 | CT ---
EXAMINATION TYPE: CT chest wo con DATE OF EXAM: 09/12/2019 COMPARISON: None HISTORY: difficulty breathing, possible fb in trachea CT DLP: 826.[address] of the chest was performed with lung and mediastinal window settings submitted. The la ck of contrast limits evaluation of the vascular, mediastinal and parenchymal structures including th e upper abdomen. Reconstruction was performed of the trachea to the level of the samara. LUNGS: Airway as visualized is patent without evidence for filling defect to suggest foreign body. Th e lungs are clear and free of infiltrate. No atelectasis. No pulmonary nodule or mass is detected. No pleural effusion. No CT evidence of interstitial lung disease. MEDIASTINUM/TRUPTI: Thoracic aorta is of normal caliber with limited evaluation given lack of contrast . Moderate to severe cardiomegaly. No evidence for mediastinal mass. No lymph nodes greater than 1c m. UPPER ABDOMEN: No significant abnormality is seen. OTHER: No significant other abnormality. IMPRESSION: 1. No foreign body visualized at this time of the visualized airway. 2. Moderate to severe cardiomegaly.
--- NOTE | 2019-09-12 17:08 | ED ---
General Adult HPI - General Chief complaint: Shortness of Breath Stated complaint: food stuck in throat Time Seen by Provider: 09/12/19 15:35 Source: patient, RN notes reviewed, old records reviewed Mode of arrival: ambulatory Limitations: no limitations - History of Present Illness Initial comments: This is a 63-year-old male who presents emergency Department stating he was eating some steak any swallowed it and it's instantly went down the wrong tube. Patient states he couldn't breathe and he started coughing violently. Patient states things seem to shift and he was able to breathe better but he feels as though it still in the breathing tube. Patient states he is able to drink fluids even that seems a little more difficult than normal but it does stay down. Patient denies any other symptoms at this time. - Related Data Home Medications Medication Instructions Recorded Confirmed Potassium Chloride ER [K-Dur 20] 20 meq PO DAILY 04/17/17 07/04/19 Warfarin Sodium 5 mg PO SUMOTUWETHSA 06/05/19 07/04/19 Warfarin Sodium [Coumadin] 7.5 mg PO FR 06/05/19 07/04/19 Previous Rx's Medication Instructions Recorded Spironolactone [Aldactone] 25 mg PO DAILY #30 tab 03/08/18 Allopurinol [Zyloprim] 100 mg PO DAILY #1 tablet 01/31/19 Famotidine [Pepcid] 20 mg PO BID #1 tablet 01/31/19 Midodrine [ProAmatine] 5 mg PO AC-TID #30 tab 01/31/19 SILVER sulfADIAZINE CREAM 1 applic TOPICAL BID applic 06/13/19 [Silvadene Cream] Aspirin 81 mg PO DAILY chew 07/08/19 Furosemide [Lasix] 40 mg PO BID #60 tab 07/08/19 Levothyroxine Sodium [Levoxyl] 37.5 mg PO DAILY #30 tab 07/08/19 Metoprolol Tartrate [Lopressor] 25 mg PO TID #0 07/08/19 Nystatin 100,000 Unit/gm Powd 1 applic TOPICAL BID applic 07/08/19 [Mycostatin Powder] Allergies Allergy/AdvReac Type Severity Reaction Status Date / Time amiodarone Allergy Rash/Hives Verified 07/04/19 08:24 ampicillin [From Unasyn] Allergy Rash/Hives Verified 07/04/19 08:24 sulbactam [From Unasyn] Allergy Rash/Hives Verified 07/04/19 08:24 Review of Systems ROS Statement: Those systems with pertinent positive or pertinent negative responses have been documented in the HPI. ROS Other: All systems not noted in ROS Statement are negative. Past Medical History Past Medical History: Atrial Fibrillation, Coronary Artery Disease (CAD), Cancer, Heart Failure, Hyperlipidemia, Hypertension, Myocardial Infarction (CT), Pneumonia, Renal Disease, Thyroid Disorder Additional Past Medical History / Comment(s): Bronchitis, possible CT per EKG, hypothyroid, CKD stage III, bilateral lower extremity venous insufficiency/chronic venous stasis/past cellulitis bilateral lower legs, skin cancer with removals. Last Myocardial Infarction Date:: unkn History of Any Multi-Drug Resistant Organisms: None Reported Past Surgical History: Adenoidectomy, Tonsillectomy Additional Past Surgical History / Comment(s): Bilateral cataract removals/lens implants, skin cancer removals L hand/L shoulder/L ear, midline IV-since removed. Past Anesthesia/Blood Transfusion Reactions: No Reported Reaction Past Psychological History: No Psychological Hx Reported Smoking Status: Never smoker Past Alcohol Use History: None Reported Past Drug Use History: None Reported - Past Family History Father Family Medical History: CVA/TIA Additional Family Medical History / Comment(s): Father at the age of 90yrs. Mother Family Medical History: Cancer Additional Family Medical History / Comment(s): Mother from cancer (unknown type) at age 80s General Exam - General Exam Comments Initial Comments: GENERAL: Patient is well-developed and well-nourished. Patient is nontoxic and well- hydrated and is in mild distress. ENT: Neck is soft and supple. No significant lymphadenopathy is noted. Oropharynx is clear. Moist mucous membranes. Neck has full range of motion without eliciting any pain. EYES: The sclera were anicteric and conjunctiva were pink and moist. Extraocular movements were intact and pupils were equal round and reactive to light. Eyelids were unremarkable. PULMONARY: Unlabored respirations. Good breath sounds bilaterally. No audible rales rhonchi or wheezing was noted. CARDIOVASCULAR: There is a regular rate and rhythm without any murmurs gallops or rubs. ABDOMEN: Soft and nontender with normal bowel sounds. SKIN: Skin is clear with no lesions or rashes and otherwise unremarkable. NEUROLOGIC: Patient is alert and oriented x3. MUSCULOSKELETAL: Normal extremities with adequate strength and full range of motion. LYMPHATICS: No significant lymphadenopathy is noted PSYCHIATRIC: Normal psychiatric evaluation. Limitations: no limitations Course Vital Signs 09/12/19 09/12/19 09/12/19 15:32 16:20 17:02 Temperature 97.7 F Pulse Rate 99 103 H 98 Respiratory 26 H 22 22 Rate Blood Pressure 111/88 102/83 96/55 O2 Sat by Pulse 92 L 95 95 Oximetry Medical Decision Making - Medical Decision Making CT showed no foreign body and no other acute abnormality. I went back into reevaluate the patient he stated that he did not have any problem breathing or drinking fluids at this time he states there is still a little scratchiness in his throat but other than that he feels fine. Disposition Clinical Impression: Aspiration of food Disposition: HOME SELF-CARE Condition: Good Instructions (If sedation given, give patient instructions): Aspiration Precautions (ED) Additional Instructions: Patient returns as any difficulty breathing or any new or worsening symptoms. Is patient prescribed a controlled substance at d/c from ED?: No Referrals: Sherman Hall MD [Primary Care Provider] - 1-2 days Time of Disposition: 17:40
[2019-09-12 19:08] VITALS: BP 104/88; PULSE 105; RESP 18
== END 2019-09-12 17:58 | disposition home or self-care (01) ==
LOC: EC 15:30
DX: T17.920A Food in respiratory tract, part unspecified causing asphyxiation, initial encounter (principal); I48.91 Unspecified atrial fibrillation; I13.0 Hypertensive heart and chronic kidney disease with heart failure and stage 1 through stage 4 chronic kidney disease, or unspecified chronic kidney disease; N18.3 Chronic kidney disease, stage 3 (moderate); I50.9 Heart failure, unspecified; I25.2 Old myocardial infarction; Z79.01 Long term (current) use of anticoagulants; Z88.0 Allergy status to penicillin; Z88.1 Allergy status to other antibiotic agents; Z88.8 Allergy status to other drugs, medicaments and biological substances; Z85.828 Personal history of other malignant neoplasm of skin
CPT/HCPCS: 71250; 99285

== ENCOUNTER 2019-11-01 22:21 | Inpatient (IN) | payer BC, OTHER ==
[2019-11-01] MEDS ORDERED: MORPHINE SULFATE 4 MG/ML SYRINGE IV STA (22:53)
--- NOTE | 2019-11-01 22:53 | ED ---
SOB HPI - General Chief Complaint: Shortness of Breath Stated Complaint: SOB Time Seen by Provider: 11/01/19 22:26 Source: patient Mode of arrival: ambulatory Limitations: no limitations - History of Present Illness Initial Comments: This patient is 64-year-old man who presents to be evaluated for shortness of breath. Patient states this is been coming on over about the past 2-3 days. He states that it feels like his heart failure is acting up. He has also noted that the breathing is worse if he tries to lie flat. He is having bilateral leg swelling. Patient denies chest pain. No diaphoresis, nausea or vomiting. The patient is denying palpitations but states that he does have atrial fibrillation and sometimes his heart will beat irregularly. No change in urination or bowel movements. No fever or chills. No productive cough MD Complaint: shortness of breath, cough Onset/Timin -: days(s) Consistency: constant Improves With: upright position Worsens With: lying flat Known History Of: congestive heart failure - Related Data Home Medications Medication Instructions Recorded Confirmed Potassium Chloride ER [K-Dur 20] 20 meq PO DAILY 04/17/17 11/01/19 Warfarin Sodium 5 mg PO SUMOTUWETHSA 06/05/19 11/01/19 Furosemide [Lasix] 40 mg PO DAILY 11/01/19 11/01/19 Levothyroxine Sodium [Euthyrox] 88 mcg PO DAILY 11/01/19 11/01/19 Metoprolol Tartrate [Lopressor] 50 mg PO BID 11/01/19 11/01/19 Warfarin [Coumadin] 7.5 mg PO FR 11/01/19 11/01/19 Previous Rx's Medication Instructions Recorded Spironolactone [Aldactone] 25 mg PO DAILY #30 tab 03/08/18 Midodrine [ProAmatine] 5 mg PO AC-TID #30 tab 01/31/19 allopurinoL [Zyloprim] 100 mg PO DAILY #1 tablet 01/31/19 Aspirin 81 mg PO DAILY chew 07/08/19 Allergies Allergy/AdvReac Type Severity Reaction Status Date / Time amiodarone Allergy Rash/Hives Verified 11/01/19 22:46 ampicillin [From Unasyn] Allergy Rash/Hives Verified 11/01/19 22:46 sulbactam [From Unasyn] Allergy Rash/Hives Verified 11/01/19 22:46 Review of Systems ROS Statement: Those systems with pertinent positive or pertinent negative responses have been documented in the HPI. ROS Other: All systems not noted in ROS Statement are negative. Constitutional: Denies: fever, chills Respiratory: Reports: dyspnea. Denies: cough, wheezes, hemoptysis Cardiovascular: Reports: orthopnea, edema. Denies: chest pain, palpitations, syncope Gastrointestinal: Denies: abdominal pain, nausea, vomiting, diarrhea, constipation, melena, hematochezia Genitourinary: Denies: dysuria, hematuria Musculoskeletal: Denies: back pain Skin: Denies: rash Neurological: Denies: headache Past Medical History Past Medical History: Atrial Fibrillation, Coronary Artery Disease (CAD), Cancer, Heart Failure, Hyperlipidemia, Hypertension, Myocardial Infarction ([place]), Pneumonia, Renal Disease, Thyroid Disorder Additional Past Medical History / Comment(s): Bronchitis, possible DC per EKG, hypothyroid, CKD stage III, bilateral lower extremity venous insufficiency/chronic venous stasis/past cellulitis bilateral lower legs, skin cancer with removals. Last Myocardial Infarction Date:: unkn History of Any Multi-Drug Resistant Organisms: None Reported Past Surgical History: Adenoidectomy, Tonsillectomy Additional Past Surgical History / Comment(s): Bilateral cataract removals/lens implants, skin cancer removals L hand/L shoulder/L ear, midline IV-since removed. Past Anesthesia/Blood Transfusion Reactions: No Reported Reaction Past Psychological History: No Psychological Hx Reported Smoking Status: Never smoker Past Alcohol Use History: None Reported Past Drug Use History: None Reported - Past Family History Father Family Medical History: CVA/TIA Additional Family Medical History / Comment(s): Father at the age of 90yrs. Mother Family Medical History: Cancer Additional Family Medical History / Comment(s): Mother from cancer (unknown type) at age 80s General Exam Limitations: no limitations General appearance: alert, in no apparent distress Neck exam: Present: normal inspection Respiratory exam: Present: rales (Bilateral bases). Absent: respiratory distress, wheezes, rhonchi, stridor Cardiovascular Exam: Present: irregular rhythm, normal heart sounds, gallop. Absent: systolic murmur, diastolic murmur, rubs GI/Abdominal exam: Present: soft. Absent: distended, tenderness, guarding, rebound, rigid Extremities exam: Present: normal inspection, normal capillary refill, pedal edema (There is bilateral edema to below the knees). Absent: calf tenderness Back exam: Present: normal inspection. Absent: CVA tenderness (R), CVA tenderness (L) Neurological exam: Present: alert Skin exam: Present: warm, dry, intact, normal color. Absent: rash Course Vital Signs 11/01/19 11/01/19 11/01/19 22:22 23:25 23:48 Temperature 98.1 F Pulse Rate 110 H 90 102 H Respiratory 20 21 18 Rate Blood Pressure 118/97 108/78 106/77 O2 Sat by Pulse 94 L 93 L 96 Oximetry 11/02/19 11/02/19 01:50 02:29 Temperature Pulse Rate 90 87 Respiratory 17 18 Rate Blood Pressure 96/77 112/67 O2 Sat by Pulse 98 95 Oximetry Medical Decision Making - Medical Decision Making Patient is 64-year-old man in with dyspnea that appears to be multifactorial. Clinically patient's manifesting congestive heart failure. There may be a tiny infiltrate on the chest x-ray, however patient not having productive cough. Patient not having fever. The patient did receive initial fluid bolus, and his blood pressure is stable and his lactic acid has resolved. At this point doubtful of infection with sepsis, suspect congestive heart failure exacerbation. - Lab Data Result diagrams: 11/04/19 07:00 11/06/19 06:45 Lab Results 11/01/19 11/01/19 11/01/19 Range/Units 22:44 22:44 22:44 WBC 6.7 (3.8-10.6) k/uL RBC 5.02 (4.30-5.90) m/uL Hgb 15.5 (13.0-17.5) gm/dL Hct 49.1 (39.0-53.0) % MCV 97.8 (80.0-100.0) fL MCH 30.8 (25.0-35.0) pg MCHC 31.5 (31.0-37.0) g/dL RDW 16.4 H (11.5-15.5) % Plt Count 123 L (150-450) k/uL Neutrophils % (Manual) 78 % Lymphocytes % (Manual) 12 % Monocytes % (Manual) 8 % Eosinophils % (Manual) 1 % Basophils % (Manual) 1 % Neutrophils # (Manual) 5.23 (1.3-7.7) k/uL Lymphocytes # (Manual) 0.80 L (1.0-4.8) k/uL Monocytes # (Manual) 0.54 (0-1.0) k/uL Eosinophils # (Manual) 0.07 (0-0.7) k/uL Basophils # (Manual) 0.07 (0-0.2) k/uL Nucleated RBCs 0 (0-0) /100 WBC Manual Slide Review Performed Large Platelets Present Polychromasia Present Hypochromasia Slight Anisocytosis Slight Macrocytosis Slight PT 20.7 H (9.0-12.0) sec INR 2.1 H (<1.2) APTT 20.1 L (22.0-30.0) sec Sodium 134 L (137-145) mmol/L Potassium 4.9 (3.5-5.1) mmol/L Chloride 108 H (98-107) mmol/L Carbon Dioxide 13 L (22-30) mmol/L Anion Gap 13 mmol/L BUN 49 H (9-20) mg/dL Creatinine 2.23 H (0.66-1.25) mg/dL Est GFR (CKD-EPI)AfAm 35 (>60 ml/min/1.73 sqM) Est GFR (CKD-EPI)NonAf 30 (>60 ml/min/1.73 sqM) Glucose 111 H (74-99) mg/dL Lactic Ac Sepsis Rflx Plasma Lactic Acid Dario (0.7-2.0) mmol/L Calcium 9.6 (8.4-10.2) mg/dL Magnesium 2.4 H (1.6-2.3) mg/dL Total Bilirubin 3.4 H (0.2-1.3) mg/dL AST 71 H (17-59) U/L ALT 35 (4-49) U/L Alkaline Phosphatase 89 (38-126) U/L Troponin I (0.000-0.034) ng/mL NT-Pro-B Natriuret Pep pg/mL Total Protein 7.0 (6.3-8.2) g/dL Albumin 4.1 (3.5-5.0) g/dL Urine Color Urine Appearance (Clear) Urine pH (5.0-8.0) Ur Specific Paradox (1.001-1.035) Urine Protein (Negative) Urine Glucose (UA) (Negative) Urine Ketones (Negative) Urine Blood (Negative) Urine Nitrite (Negative) Urine Bilirubin (Negative) Urine Urobilinogen (<2.0) mg/dL Ur Leukocyte Esterase (Negative) Urine RBC (0-5) /hpf Urine WBC (0-5) /hpf Amorphous Sediment (None) /hpf Urine Bacteria (None) /hpf Urine Mucus (None) /hpf 11/01/19 11/01/19 11/01/19 Range/Units 22:44 22:44 22:47 WBC (3.8-10.6) k/uL RBC (4.30-5.90) m/uL Hgb (13.0-17.5) gm/dL Hct (39.0-53.0) % MCV (80.0-100.0) fL MCH (25.0-35.0) pg MCHC (31.0-37.0) g/dL RDW (11.5-15.5) % Plt Count (150-450) k/uL Neutrophils % (Manual) % Lymphocytes % (Manual) % Monocytes % (Manual) % Eosinophils % (Manual) % Basophils % (Manual) % Neutrophils # (Manual) (1.3-7.7) k/uL Lymphocytes # (Manual) (1.0-4.8) k/uL Monocytes # (Manual) (0-1.0) k/uL Eosinophils # (Manual) (0-0.7) k/uL Basophils # (Manual) (0-0.2) k/uL Nucleated RBCs (0-0) /100 WBC Manual Slide Review Large Platelets Polychromasia Hypochromasia Anisocytosis Macrocytosis PT (9.0-12.0) sec INR (<1.2) APTT (22.0-30.0) sec Sodium (137-145) mmol/L Potassium (3.5-5.1) mmol/L Chloride (98-107) mmol/L Carbon Dioxide (22-30) mmol/L Anion Gap mmol/L BUN (9-20) mg/dL Creatinine (0.66-1.25) mg/dL Est GFR (CKD-EPI)AfAm (>60 ml/min/1.73 sqM) Est GFR (CKD-EPI)NonAf (>60 ml/min/1.73 sqM) Glucose (74-99) mg/dL Lactic Ac Sepsis Rflx Plasma Lactic Acid Dario 4.2 H* (0.7-2.0) mmol/L Calcium (8.4-10.2) mg/dL Magnesium (1.6-2.3) mg/dL Total Bilirubin (0.2-1.3) mg/dL AST (17-59) U/L ALT (4-49) U/L Alkaline Phosphatase (38-126) U/L Troponin I 0.083 H* (0.000-0.034) ng/mL NT-Pro-B Natriuret Pep 78230 pg/mL Total Protein (6.3-8.2) g/dL Albumin (3.5-5.0) g/dL Urine Color Urine Appearance (Clear) Urine pH (5.0-8.0) Ur Specific Paradox (1.001-1.035) Urine Protein (Negative) Urine Glucose (UA) (Negative) Urine Ketones (Negative) Urine Blood (Negative) Urine Nitrite (Negative) Urine Bilirubin (Negative) Urine Urobilinogen (<2.0) mg/dL Ur Leukocyte Esterase (Negative) Urine RBC (0-5) /hpf Urine WBC (0-5) /hpf Amorphous Sediment (None) /hpf Urine Bacteria (None) /hpf Urine Mucus (None) /hpf 11/01/19 11/02/19 11/02/19 Range/Units 23:25 00:57 01:49 WBC (3.8-10.6) k/uL RBC (4.30-5.90) m/uL Hgb (13.0-17.5) gm/dL Hct (39.0-53.0) % MCV (80.0-100.0) fL MCH (25.0-35.0) pg MCHC (31.0-37.0) g/dL RDW (11.5-15.5) % Plt Count (150-450) k/uL Neutrophils % (Manual) % Lymphocytes % (Manual) % Monocytes % (Manual) % Eosinophils % (Manual) % Basophils % (Manual) % Neutrophils # (Manual) (1.3-7.7) k/uL Lymphocytes # (Manual) (1.0-4.8) k/uL Monocytes # (Manual) (0-1.0) k/uL Eosinophils # (Manual) (0-0.7) k/uL Basophils # (Manual) (0-0.2) k/uL Nucleated RBCs (0-0) /100 WBC Manual Slide Review Large Platelets Polychromasia Hypochromasia Anisocytosis Macrocytosis PT (9.0-12.0) sec INR (<1.2) APTT (22.0-30.0) sec Sodium (137-145) mmol/L Potassium (3.5-5.1) mmol/L Chloride (98-107) mmol/L Carbon Dioxide (22-30) mmol/L Anion Gap mmol/L BUN (9-20) mg/dL Creatinine (0.66-1.25) mg/dL Est GFR (CKD-EPI)AfAm (>60 ml/min/1.73 sqM) Est GFR (CKD-EPI)NonAf (>60 ml/min/1.73 sqM) Glucose (74-99) mg/dL Lactic Ac Sepsis Rflx Y Plasma Lactic Acid Dario 2.0 (0.7-2.0) mmol/L Calcium (8.4-10.2) mg/dL Magnesium (1.6-2.3) mg/dL Total Bilirubin (0.2-1.3) mg/dL AST (17-59) U/L ALT (4-49) U/L Alkaline Phosphatase (38-126) U/L Troponin I (0.000-0.034) ng/mL NT-Pro-B Natriuret Pep pg/mL Total Protein (6.3-8.2) g/dL Albumin (3.5-5.0) g/dL Urine Color Yellow Urine Appearance Cloudy (Clear) Urine pH 5.0 (5.0-8.0) Ur Specific Paradox 1.017 (1.001-1.035) Urine Protein 1+ H (Negative) Urine Glucose (UA) Negative (Negative) Urine Ketones Negative (Negative) Urine Blood Negative (Negative) Urine Nitrite Negative (Negative) Urine Bilirubin 1+ H (Negative) Urine Urobilinogen 3.0 (<2.0) mg/dL Ur Leukocyte Esterase Negative (Negative) Urine RBC 1 (0-5) /hpf Urine WBC 1 (0-5) /hpf Amorphous Sediment Rare H (None) /hpf Urine Bacteria Rare H (None) /hpf Urine Mucus Rare H (None) /hpf - EKG Data -: EKG Interpreted by Me EKG shows normal: intervals (QRS duration 162 ms, prolonged consistent with the bundle-branch block. QTC 552 ms.), QRS complexes (Left bundle-branch block.) When compared to previous EKG there are: other (ECG morphology is similar to the ECG from June.) Interpretation: other (Underlying rhythm appears to be atrial fibrillation there are also PVCs present. Right approximately 102 BPM) Critical Care Time Critical Care Time: Yes (30 minutes) Disposition Clinical Impression: Congestive heart failure, Dyspnea, Pneumonia Disposition: ADMITTED IP TO THIS HOSP Condition: Fair
[2019-11-01] MEDS ORDERED: NITROGLYCERIN OINT 1 INCH/GM PACKET TOPICAL STA (22:54)
[2019-11-01 23:12] LABS: Anisocytosis Slight; HCT 49.1 % (39.0-53.0); HGB 15.5 gm/dL (13.0-17.5); Hypochromasia Slight; MCH 30.8 pg (25.0-35.0); MCHC 31.5 g/dL (31.0-37.0); MCV 97.8 fL (80.0-100.0); Macrocytosis Slight; Mean Platelet Volume 13.3; Platelet Count 123 k/uL (150-450); RBC 5.02 m/uL (4.30-5.90); RDW 16.4 % (11.5-15.5); WBC 6.7 k/uL (3.8-10.6)
[2019-11-01 23:16] LABS: INR 2.1 (<1.2); Prothrombin Time 20.7 sec (9.0-12.0)
[2019-11-01 23:17] LABS: Albumin 4.1 g/dL (3.5-5.0); Calcium 9.6 mg/dL (8.4-10.2); Magnesium 2.4 mg/dL (1.6-2.3); Potassium 4.9 mmol/L (3.5-5.1); Total Bilirubin 3.4 mg/dL (0.2-1.3)
--- NOTE | 2019-11-01 23:17 | XR ---
EXAMINATION TYPE: XR chest 1V portable DATE OF EXAM: 11/01/2019 COMPARISON: 07/04/2019 HISTORY: Irregular heart rate TECHNIQUE: FINDINGS: Heart is moderately enlarged. There is some mild linear infiltrate and atelectasis right steve ng base. There is no heart failure. There are no hilar masses. There are chest leads. IMPRESSION: Minimal infiltrate and atelectasis right lung base is new compared to old exam. No heart failure seen. Moderate cardiomegaly unchanged.
[2019-11-01 23:19] LABS: Partial Thromboplastin Time 20.1 sec (22.0-30.0)
[2019-11-01 23:22] LABS: Basophils # (M) 0.07 k/uL (0-0.2); Eosinophils # (M) 0.07 k/uL (0-0.7); Monocytes # (M) 0.54 k/uL (0-1.0); Neutrophils # (M) 5.23 k/uL (1.3-7.7); Neutrophils % (M) 78 %; Nucleated Red Blood Cells 0 /100 WBC (0-0); Total Cells Counted 100
[2019-11-01 23:23] LABS: Large Platelets Present; Polychromasia Present
[2019-11-02 01:06] LABS: Amorphous Sediment,Urine Rare /hpf; Appearance,Urine Cloudy (Clear); Bacteria,Urine Rare /hpf; Bilirubin,Urine 1+ (Negative); Blood,Urine Negative (Negative); Color,Urine Yellow; Glucose,Urine (UA) Negative (Negative); Ketones,Urine Negative (Negative); Leukocyte Esterase,Urine Negative (Negative); Mucus,Urine Rare /hpf; Nitrite,Urine Negative (Negative); Protein,Urine 1+ (Negative); RBC,Urine 1 /hpf (0-5); Specific Gravity,Urine 1.017 (1.001-1.035); WBC,Urine 1 /hpf (0-5)
[2019-11-02] MEDS ORDERED: PNEUMONIA PROTOCOL UTILIZED 1 EACH MISC PO PRN (02:24)
[2019-11-02] MEDS: AZITHROMYCIN 500 MG TAB PO SCH (09:36)
[2019-11-02] MEDS: ASPIRIN 81 MG PO SCH (12:16)
[2019-11-02] MEDS: allopurinoL 100 MG TAB PO SCH (12:16)
[2019-11-02] MEDS: LEVOTHYROXINE 88 MCG TAB PO SCH (12:16)
[2019-11-02] MEDS: METOPROLOL TARTRATE 50 MG TAB PO SCH ×2 (12:16→22:59)
[2019-11-02] MEDS: MIDODRINE 5 MG TAB PO SCH ×2 (12:16→16:09)
[2019-11-02] MEDS: POTASSIUM CHLORIDE ER 20 MEQ TAB.ER PO SCH (12:16)
--- NOTE | 2019-11-02 14:56 | P.HPIM ---
History of Present Illness H&P Date: 11/02/19 Chief Complaint: Short of breath History of presenting complaint: This is a 64-year-old patient of Dr. Hall. Chronic stable medical conditions include congestive heart failure EF 20-25%, atrial flutter fibrillation, left bundle-branch block, morbid obesity, hyperlipidemia, bilateral lower extremity venous insufficiency and chronic venous stasis, hypothyroid. Patient now presents with increasing shortness of breath for 3 days. Very little cough. No fever no chills. Increasing edema. Appetite is okay. A bit tired rundown. Checks x-ray shows questionable infiltrate. Started antibiotic. Review of systems: GEN.: [ Tired] EYES: [None] HEENT: [None] NECK: [None] RESPIRATORY: [As above CARDIOVASCULAR: [As above GASTROINTESTINAL: [None] GENITOURINARY: [None] MUSCULOSKELETAL: [None] LYMPHATICS: [None] HEMATOLOGICAL: [None] DERMATOLOGICAL: Chronic lower extremity skin changes PSYCHIATRY: [None] NEUROLOGICAL: [None] Past medical history to include: CHF EF 20-25%, atrial flutter fibrillation, left bundle-branch block, morbid obesity, bilateral lower extremity venous insufficiency and chronic venous stasis, hyperlipidemia, hypertension, chronic kidney disease stage III, Social history: Lives with a roommate. Retired. Does not smoke or drink alcohol. Physical examination: VITAL SIGNS: 98.1, 110, 20, 118/97, 94% on 2 L GENERAL: BMI 48.4, laying in bed, tired short of breath EYES: Pupils equal. Conjunctiva normal. HEENT: External appearance of nose and ears normal, oral cavity grossly normal. NECK: JVD unable to assess; masses not palpable. HEART: Heart sounds regular; edema present LUNGS: Respiratory rate increased, diminished breath sounds ABDOMEN: Soft, nontender, liver spleen not palpable, no masses palpable. PSYCH: AAO 3, motor affect normal NEUROLOGICAL: [Cranial nerves grossly intact; no facial asymmetry, moving all his limbs EXTREMITIES: Chronic venous insufficiency and venous stasis changes of lower extremity and dry skin of the feet and disfigured nails LYMPHATICS: No lymph nodes palpable in the axilla and neck INVESTIGATIONS, reviewed in the clinical context: White count 6.7 hemoglobin 13.5 platelets 123 INR 2.1potassium 4.9 bun 49 creatinine 2.23 Troponin I 0.083, proBNP 26,800 EKG tracing personally reviewed by me-atrial fibrillation with a left bundle- branch block back Previous testing: Bun 64 creatinine 1.68 in June 2019 Assessment: -Acute on chronic congestive heart failure exacerbation from diastolic and systolic dysfunction EF 20-25%, POA -Possible right-sided pneumonia, suspect gram-negative organism, POA -Persistent atrial fibrillation/flutter, -Left bundle-branch block -Morbid obesity BMI 52.3 -Hyperlipidemia -Essential hypertension-history of -Chronic kidney disease stage III from nephrosclerosis at her baseline baseline creatinine 1.7 -Bilateral lower extremity venous insufficiency and chronic venous stasis -Troponin leak from chronic kidney disease, no evidence of acute coronary syndr ome -Coumadin monitoring -Hypothyroid Plan: Patient is started on IV Lasix 80 mg every 8. Home medications to be continued. Follow lites closely. On IV antibiotic. Consult nephrology and oncology. Care was discussed with the patient. Strict I's and O's.. Past Medical History Past Medical History: Atrial Fibrillation, Coronary Artery Disease (CAD), Cancer, Heart Failure, Hyperlipidemia, Hypertension, Myocardial Infarction ([place]), Pneumonia, Renal Disease, Thyroid Disorder Additional Past Medical History / Comment(s): Bronchitis, possible NE per EKG, hypothyroid, CKD stage III, bilateral lower extremity venous insufficien cy/chronic venous stasis/past cellulitis bilateral lower legs, skin cancer with removals. Last Myocardial Infarction Date:: unkn History of Any Multi-Drug Resistant Organisms: None Reported Past Surgical History: Adenoidectomy, Tonsillectomy Additional Past Surgical History / Comment(s): Bilateral cataract removals/lens implants, skin cancer removals L hand/L shoulder/L ear, midline IV-since remov ed. Past Anesthesia/Blood Transfusion Reactions: No Reported Reaction Past Psychological History: No Psychological Hx Reported Smoking Status: Never smoker Past Alcohol Use History: None Reported Past Drug Use History: None Reported - Past Family History Father Family Medical History: CVA/TIA Additional Family Medical History / Comment(s): Father at the age of 90yrs. Mother Family Medical History: Cancer Additional Family Medical History / Comment(s): Mother from cancer (unknown type) at age 80s Medications and Allergies Home Medications Medication Instructions Recorded Confirmed Type Potassium Chloride ER [K-Dur 20] 20 meq PO DAILY 04/17/17 11/01/19 History Spironolactone [Aldactone] 25 mg PO DAILY #30 tab 03/08/18 11/01/19 Rx Midodrine [ProAmatine] 5 mg PO AC-TID #30 tab 01/31/19 11/01/19 Rx allopurinoL [Zyloprim] 100 mg PO DAILY #1 tablet 01/31/19 11/01/19 Rx Warfarin Sodium 5 mg PO SUMOTUWETHSA 06/05/19 11/01/19 History Aspirin 81 mg PO DAILY chew 07/08/19 11/01/19 Rx Furosemide [Lasix] 40 mg PO DAILY 11/01/19 11/01/19 History Levothyroxine Sodium [Euthyrox] 88 mcg PO DAILY 11/01/19 11/01/19 History Metoprolol Tartrate [Lopressor] 50 mg PO BID 11/01/19 11/01/19 History Warfarin [Coumadin] 7.5 mg PO FR 11/01/19 11/01/19 History Allergies Allergy/AdvReac Type Severity Reaction Status Date / Time amiodarone Allergy Rash/Hives Verified 11/01/19 22:46 ampicillin [From Unasyn] Allergy Rash/Hives Verified 11/01/19 22:46 sulbactam [From Unasyn] Allergy Rash/Hives Verified 11/01/19 22:46 Physical Exam Vitals: Vital Signs Temp Pulse Pulse Resp BP BP Pulse Ox 11/02/19 08:40 97.6 F 72 19 104/56 97 11/02/19 04:00 94 20 11/02/19 03:23 98.6 F 94 20 101/77 97 11/02/19 02:29 87 18 112/67 95 11/02/19 01:50 90 17 96/77 98 11/01/19 23:48 102 H 18 106/77 96 11/01/19 23:25 90 21 108/78 93 L 11/01/19 22:22 98.1 F 110 H 20 118/97 94 L Intake and Output 11/01/19 11/02/19 11/02/19 22:59 06:59 14:59 Intake Total 600 Balance 600 Intake: Oral 600 Other: Weight 136.078 kg 144.5 kg Results CBC & Chem 7: 11/01/19 22:44 08/08/20 22:44 Labs: Abnormal Lab Results - Last 24 Hours (Table) 11/01/19 11/01/19 11/01/19 Range/Units 22:44 22:44 22:44 RDW 16.4 H (11.5-15.5) % Plt Count 123 L (150-450) k/uL Lymphocytes # (Manual) 0.80 L (1.0-4.8) k/uL PT 20.7 H (9.0-12.0) sec INR 2.1 H (<1.2) APTT 20.1 L (22.0-30.0) sec Sodium 134 L (137-145) mmol/L Chloride 108 H (98-107) mmol/L Carbon Dioxide 13 L (22-30) mmol/L BUN 49 H (9-20) mg/dL Creatinine 2.23 H (0.66-1.25) mg/dL Glucose 111 H (74-99) mg/dL Plasma Lactic Acid Dario (0.7-2.0) mmol/L Magnesium 2.4 H (1.6-2.3) mg/dL Total Bilirubin 3.4 H (0.2-1.3) mg/dL AST 71 H (17-59) U/L Troponin I (0.000-0.034) ng/mL Urine Protein (Negative) Urine Bilirubin (Negative) Amorphous Sediment (None) /hpf Urine Bacteria (None) /hpf Urine Mucus (None) /hpf 11/01/19 11/01/19 11/02/19 Range/Units 22:44 22:47 00:57 RDW (11.5-15.5) % Plt Count (150-450) k/uL Lymphocytes # (Manual) (1.0-4.8) k/uL PT (9.0-12.0) sec INR (<1.2) APTT (22.0-30.0) sec Sodium (137-145) mmol/L Chloride (98-107) mmol/L Carbon Dioxide (22-30) mmol/L BUN (9-20) mg/dL Creatinine (0.66-1.25) mg/dL Glucose (74-99) mg/dL Plasma Lactic Acid Dario 4.2 H* (0.7-2.0) mmol/L Magnesium (1.6-2.3) mg/dL Total Bilirubin (0.2-1.3) mg/dL AST (17-59) U/L Troponin I 0.083 H* (0.000-0.034) ng/mL Urine Protein 1+ H (Negative) Urine Bilirubin 1+ H (Negative) Amorphous Sediment Rare H (None) /hpf Urine Bacteria Rare H (None) /hpf Urine Mucus Rare H (None) /hpf Thrombosis Risk Factor Assmnt - Choose All That Apply Any of the Below Risk Factors Present?: Yes Each Factor Represents 1 point: Heart failure (<1month), Obesity (BMI >25), Swollen legs (current) Other Risk Factors: Yes Each Risk Factor Represents 2 Points: Age 61-74 years Thrombosis Risk Factor Assessment Total Risk Factor Score: 5 Thrombosis Risk Factor Assessment Level: High Risk
[2019-11-02] MEDS: FUROSEMIDE 10 MG/ML 10 ML VIAL IV SCH ×2 (16:09→22:59)
[2019-11-02] MEDS: WARFARIN 5 MG TAB PO SCH (16:09)
[2019-11-03] MEDS: MIDODRINE 5 MG TAB PO SCH ×3 (06:47→16:47)
[2019-11-03] MEDS: LEVOTHYROXINE 88 MCG TAB PO SCH (06:47)
[2019-11-03 06:58] LABS: Calcium 9.5 mg/dL (8.4-10.2); Magnesium 2.6 mg/dL (1.6-2.3)
--- NOTE | 2019-11-03 08:54 | P.CRDCN ---
History of Present Illness Consult date: 11/03/19 Requesting physician: Carter Marte Reason for Consult (text): CHF Chief complaint: Progressively worsening shortness of breath History of present illness: This is a pleasant 64-year-old gentleman who follows with Dr. Goodwin in the office. He has a history of hypertension, hyperlipidemia, long-standing persistent atrial fibrillation, chronic kidney disease, left bundle branch block, nonischemic cardiomyopathy with known ejection fraction of 20-25%, and obesity. Presented to the emergency department with complaints of progressively worsening shortness of breath over 3 days as well as worsening lower extremity edema. Denies any fever, chills or significant coughing. He's had no chest discomfort, palpitations, PND or orthopnea. He denies any signs or symptoms of sleep apnea. He verbalizes compliance with fluid and dietary restrictions as well as medications but has not followed up in the office since January 2019 and has been hospitalized twice since then. Chest x-ray on admission showed minimal infiltrate and atelectasis right lung base new compared to old exam, no heart failure seen, moderate cardiomegaly unchanged. EKG showed atrial fibrillation with left bundle branch block and PVCs the heart rate of 102. He did have an echocardiogram done in May of this year which showed severe global hypokinesis of the LV, severely impaired LV systolic function with ejection fraction between 20-25%, grade 2 diastolic dysfunction, severely enlarged RV, severely dilated LA, mild aortic regurgitation and mild mitral regurgitation with no evidence of pulmonary hypertension. Labs on admission showed white blood cell count 6.7, hemoglobin 15.5, platelet count 123, INR 2.1, sodium 134, BUN 49, creatinine 2.23, plasma lactic acid 4.2, troponin 0.083 and NT-proBNP of 26,800. He's been initiated on ceftriaxone 1 g IV piggyback daily, azithromycin 500 mg by mouth daily, Lasix 80 mg IV push every 8 hours. Repeat labs this morning showed a sodium 139, potassium 5.0, BUN 57, creatinine 1.91 and magnesium 2.6. Overall he is feeling a bit better today. His breathing has i mproved some and he feels his edema is a bit better. Past Medical History Past Medical History: Atrial Fibrillation, Coronary Artery Disease (CAD), Cancer, Heart Failure, Hyperlipidemia, Hypertension, Myocardial Infarction ([place]), Pneumonia, Renal Disease, Thyroid Disorder Additional Past Medical History / Comment(s): Bronchitis, possible [place] per EKG, hypothyroid, CKD stage III, bilateral lower extremity venous insufficiency/chronic venous stasis/past cellulitis bilateral lower legs, skin cancer with removals. Last Myocardial Infarction Date:: unkn History of Any Multi-Drug Resistant Organisms: None Reported Past Surgical History: Adenoidectomy, Tonsillectomy Additional Past Surgical History / Comment(s): Bilateral cataract removals/lens implants, skin cancer removals L hand/L shoulder/L ear, midline IV-since removed. Past Anesthesia/Blood Transfusion Reactions: No Reported Reaction Past Psychological History: No Psychological Hx Reported Smoking Status: Never smoker Past Alcohol Use History: None Reported Past Drug Use History: None Reported - Past Family History Father Family Medical History: CVA/TIA Additional Family Medical History / Comment(s): Father at the age of 90yrs. Mother Family Medical History: Cancer Additional Family Medical History / Comment(s): Mother from cancer (unknown type) at age 80s Medications and Allergies Home Medications Medication Instructions Recorded Confirmed Type Potassium Chloride ER [K-Dur 20] 20 meq PO DAILY 04/17/17 11/01/19 History Spironolactone [Aldactone] 25 mg PO DAILY #30 tab 03/08/18 11/01/19 Rx Midodrine [ProAmatine] 5 mg PO AC-TID #30 tab 01/31/19 11/01/19 Rx allopurinoL [Zyloprim] 100 mg PO DAILY #1 tablet 01/31/19 11/01/19 Rx Warfarin Sodium 5 mg PO SUMOTUWETHSA 06/05/19 11/01/19 History Aspirin 81 mg PO DAILY chew 07/08/19 11/01/19 Rx Furosemide [Lasix] 40 mg PO DAILY 11/01/19 11/01/19 History Levothyroxine Sodium [Euthyrox] 88 mcg PO DAILY 11/01/19 11/01/19 History Metoprolol Tartrate [Lopressor] 50 mg PO BID 11/01/19 11/01/19 History Warfarin [Coumadin] 7.5 mg PO FR 11/01/19 11/01/19 History Allergies Allergy/AdvReac Type Severity Reaction Status Date / Time amiodarone Allergy Rash/Hives Verified 11/01/19 22:46 ampicillin [From Unasyn] Allergy Rash/Hives Verified 11/01/19 22:46 sulbactam [From Unasyn] Allergy Rash/Hives Verified 11/01/19 22:46 Physical Exam Vitals: Vital Signs Temp Pulse Resp BP Pulse Ox 11/03/19 04:00 72 18 146/103 95 11/03/19 00:00 97.4 F L 96 18 117/72 96 11/02/19 20:00 97.5 F L 99 18 102/71 99 11/02/19 16:20 97.8 F 90 19 117/79 95 11/02/19 12:00 97.6 F 97 18 92/65 95 11/02/19 08:40 97.6 F 72 19 104/56 97 Intake and Output 11/02/19 11/03/19 11/03/19 22:59 06:59 14:59 Intake Total 240 240 Output Total 400 1800 Balance -160 -1800 240 Intake: Oral 240 240 Output: Urine 400 1800 Other: # Voids 1 Weight 144.4 kg PHYSICAL EXAMINATION: This is a 64-year-old male in no apparent distress at the time of my examination. VITAL SIGNS: Blood pressure 146/103 however previous blood pressures during this admission were much lower lid immediately believe this is an inaccurate reading, heart rate 70s to 90s, respirations 18, temp 97.4F. Patient is 95 % on 2 L via nasal cannula. HEENT: Head is atraumatic, normocephalic. Pupils are equal, round. Sclerae anicteric. Conjunctivae are clear. Mucous membranes of the mouth are moist. Neck is supple. There is no elevated jugular venous pressure. No carotid bruit is heard. CHEST EXAMINATION: Clear to auscultation bilaterally. Diminished air entry noted to the right base No wheezes rales or rhonchi. Respirations even and nonlabored. HEART EXAMINATION: Heart irregular irregular, positive S1 and S2. No S3. No S4. With a systolic murmur. ABDOMEN: Soft, obese, nontender. Bowel sounds are heard. EXTREMITIES: 1+ peripheral pulses with evidence of moderate peripheral edema with some erythema and weeping noted and no calf tenderness noted. NEUROLOGIC EXAMINATION: Patient is awake, alert and oriented x3. Results 11/01/19 22:44 11/03/19 05:52 Comprehensive Metabolic Panel 11/03/19 Range/Units 05:52 Sodium 139 (137-145) mmol/L Potassium 5.0 (3.5-5.1) mmol/L Chloride 105 (98-107) mmol/L Carbon Dioxide 20 L (22-30) mmol/L BUN 57 H (9-20) mg/dL Creatinine 1.91 H (0.66-1.25) mg/dL Glucose 89 (74-99) mg/dL Calcium 9.5 (8.4-10.2) mg/dL Current Medications Generic Name Dose Route Start Last Admin Trade Name Freq PRN Reason Stop Dose Admin Allopurinol 100 mg 11/02/19 11:00 11/02/19 12:16 Zyloprim PO 100 mg DAILY RADHA Administration Aspirin 81 mg 11/02/19 11:00 11/02/19 12:16 Aspirin PO 81 mg DAILY RADHA Administration Azithromycin 500 mg 11/02/19 09:00 11/02/19 09:36 Zithromax PO 500 mg DAILY RADHA Administration Furosemide 80 mg 11/02/19 16:00 11/02/19 22:59 Lasix IV 80 mg Q8HR RADHA Administration Ceftriaxone Sodium 1 gm/ 50 mls @ 100 mls/hr 11/02/19 21:00 11/02/19 22:58 Sodium Chloride IVPB 100 mls/hr DAILY@2100 RADHA Administration Levothyroxine Sodium 88 mcg 11/02/19 11:00 11/03/19 06:47 Synthroid PO 88 mcg 0630 RADHA Administration Metoprolol Tartrate 50 mg 11/02/19 11:00 11/02/19 22:59 Lopressor PO 50 mg BID RADHA Administration Midodrine 5 mg 11/02/19 12:30 11/03/19 06:47 Proamatine PO 5 mg AC-TID RADHA Administration Miscellaneous Information 1 each 11/02/19 02:24 Pneumonia Protocol Utilized PO ONCE PRN Per Protocol Potassium Chloride 20 meq 11/02/19 11:00 11/02/19 12:16 K-Dur 20 PO 20 meq DAILY RADHA Administration Warfarin Sodium 5 mg 11/02/19 18:00 11/02/19 16:09 Coumadin PO 5 mg SuMoTuWeThSa@1800 RADHA Administration Protocol Warfarin Sodium 7.5 mg 11/07/19 18:00 Coumadin PO Fr@1800 [facility] Protocol Intake and Output 08/0911/03/19 11/03/19 22:59 06:59 14:59 Intake Total 240 240 Output Total 400 1800 Balance -160 -1800 240 Intake: Oral 240 240 Output: Urine 400 1800 Other: # Voids 1 Weight 144.4 kg 11/01/19 22:44 11/03/19 05:52 EKG Interpretations (text) Atrial fibrillation with left bundle branch block and PVCs Assessment and Plan Assessment: #1 acute on chronic systolic congestive heart failure #2 nonischemic cardiomyopathy with a known ejection fraction of 20-25% #3 long-standing persistent atrial fibrillation, anticoagulated on Coumadin #4 hypertension with episodes of hypotension, currently on midodrine #5 hyperlipidemia #6 obesity Plan: From cardiology's perspective, medications were reviewed and will continue the same. Depending on the trend of the blood pressure we may consider adding hydralazine and Imdur. We will monitor renal function, electrolytes, daily weig ht, and intake and outputs. We will continue to follow the patient for further recommendations accordingly. CHIEF JAILER note has been reviewed, I agree with a documented findings and plan of care. Patient was seen and examined.
[2019-11-03] MEDS: ASPIRIN 81 MG PO SCH (09:23)
[2019-11-03] MEDS: METOPROLOL TARTRATE 50 MG TAB PO SCH ×2 (09:23→21:44)
[2019-11-03] MEDS: allopurinoL 100 MG TAB PO SCH (09:23)
[2019-11-03] MEDS: AZITHROMYCIN 500 MG TAB PO SCH (09:24)
[2019-11-03] MEDS: FUROSEMIDE 10 MG/ML 10 ML VIAL IV SCH ×2 (09:24→16:47)
[2019-11-03] MEDS: POTASSIUM CHLORIDE ER 20 MEQ TAB.ER PO SCH (09:25)
--- NOTE | 2019-11-03 11:00 | P.NPCON ---
History of Present Illness - Reason for Consult acute renal failure, chronic renal failure - History of Present Illness reason for consultation: Acute kidney injury on chronic kidney disease History of present illness: Patient is a 64-year-old male seen in renal consultation for acute kidney injury on chronic kidney disease. Patient has chronic kidney disease stage III with baseline creatinine in the range of 1.6-1.8. Creatinine was 2.23 on admission and is 1.91 today. He is currently maintained on IV Lasix 80 mg 3 times daily. He admits to good urine output. A shunt presented to the hospital with shortness of breath and worsening lower extremity edema over the last 2-3 days. He should states he did eat high amount of sodium over the weekend which worsened his volume overload. He denies vomiting or diarrhea. No chest pain. No fever or chills. No cough. patient has chronic systolic CHF with ejection fraction of 20-25%. Vital signs are stable. General: The patient appeared well nourished and normally developed. HEENT: Head exam is unremarkable. Neck is without jugular venous distension. LUNGS: Breath sounds decreased. HEART: Rate and Rhythm are regular. ABDOMEN: soft, nontender. Obese. EXTREMITITES: 2+ edema. chronic changes noted. Past Medical History Past Medical History: Atrial Fibrillation, Coronary Artery Disease (CAD), Cancer, Heart Failure, Hyperlipidemia, Hypertension, Myocardial Infarction ([place]), Pneumonia, Renal Disease, Thyroid Disorder Additional Past Medical History / Comment(s): Bronchitis, possible [place] per EKG, hypothyroid, CKD stage III, bilateral lower extremity venous insufficiency/ham curer denia venous stasis/past cellulitis bilateral lower legs, skin cancer with removals. Last Myocardial Infarction Date:: unkn History of Any Multi-Drug Resistant Organisms: None Reported Past Surgical History: Adenoidectomy, Tonsillectomy Additional Past Surgical History / Comment(s): Bilateral cataract removals/lens implants, skin cancer removals L hand/L shoulder/L ear, midline IV-since removed. Past Anesthesia/Blood Transfusion Reactions: No Reported Reaction Past Psychological History: No Psychological Hx Reported Smoking Status: Never smoker Past Alcohol Use History: None Reported Past Drug Use History: None Reported - Past Family History Father Family Medical History: CVA/TIA Additional Family Medical History / Comment(s): Father at the age of 90yrs. Mother Family Medical History: Cancer Additional Family Medical History / Comment(s): Mother from cancer (unknown type) at age 80s Medications and Allergies Home Medications Medication Instructions Recorded Confirmed Type Potassium Chloride ER [K-Dur 20] 20 meq PO DAILY 04/17/17 11/01/19 History Spironolactone [Aldactone] 25 mg PO DAILY #30 tab 03/08/18 11/01/19 Rx Midodrine [ProAmatine] 5 mg PO AC-TID #30 tab 01/31/19 11/01/19 Rx allopurinoL [Zyloprim] 100 mg PO DAILY #1 tablet 01/31/19 11/01/19 Rx Warfarin Sodium 5 mg PO SUMOTUWETHSA 06/05/19 11/01/19 History Aspirin 81 mg PO DAILY chew 07/08/19 11/01/19 Rx Furosemide [Lasix] 40 mg PO DAILY 11/01/19 11/01/19 History Levothyroxine Sodium [Euthyrox] 88 mcg PO DAILY 11/01/19 11/01/19 History Metoprolol Tartrate [Lopressor] 50 mg PO BID 11/01/19 11/01/19 History Warfarin [Coumadin] 7.5 mg PO FR 11/01/19 11/01/19 History Allergies Allergy/AdvReac Type Severity Reaction Status Date / Time amiodarone Allergy Rash/Hives Verified 11/01/19 22:46 ampicillin [From Unasyn] Allergy Rash/Hives Verified 11/01/19 22:46 sulbactam [From Unasyn] Allergy Rash/Hives Verified 11/01/19 22:46 Physical Exam Vitals: Vital Signs Temp Pulse Resp BP Pulse Ox 11/03/19 08:00 97.4 F L 78 16 100/65 97 11/03/19 04:00 72 18 146/103 95 11/03/19 00:00 97.4 F L 96 18 117/72 96 11/02/19 20:00 97.5 F L 99 18 102/71 99 11/02/19 16:20 97.8 F 90 19 117/79 95 11/02/19 12:00 97.6 F 97 18 92/65 95 Intake and Output 11/02/19 11/03/19 11/03/19 22:59 06:59 14:59 Intake Total 240 240 Output Total 400 1800 600 Balance -160 -1800 -360 Intake: Oral 240 240 Output: Urine 400 1800 600 Other: # Voids 1 Weight 144.4 kg Results - Lab Results Most recent lab results Calcium 9.5 mg/dL (8.4-10.2) 11/03/19 05:52 Magnesium 2.6 mg/dL (1.6-2.3) H 11/03/19 05:52 11/01/19 22:44 11/03/19 05:52 Assessment and Plan Plan: assessment: 1. acute kidney injury mostly prerenal secondary to cardiorenal syndrome. Creatinine was 2.23 on admission and is 1.91 today. 2. Acute on chronic systolic CHF with ejection fraction of 20-25%. 3. Volume overload. 4. metabolic acidosis secondary to acute kidney injury. 5. Chronic A. fib maintained on Lopressor and Zantac regulation. plan: maintain IV Lasix. low-salt diet and 1500 mL fluid restriction. Daily weights. Continue to monitor renal function and urine output. hold potassium supplementation for now. Thank you for the consultation. I will continue to follow the patient with you during his hospital stay.
[2019-11-03] MEDS: WARFARIN 5 MG TAB PO SCH (16:47)
[2019-11-04] MEDS: FUROSEMIDE 10 MG/ML 10 ML VIAL IV SCH ×4 (00:34→23:28)
--- NOTE | 2019-11-04 00:51 | P.PN ---
Subjective Progress Note Date: 11/03/19 Principal diagnosis: Acute on chronic CHF with systolic dysfunction This is a 64-year-old patient of Dr. Hall. Chronic stable medical conditions include congestive heart failure EF 20-25%, atrial flutter fibrillation, left bundle-branch block, morbid obesity, hyperlipidemia, bilateral lower extremity venous insufficiency and chronic venous stasis, hypothyroid. Patient now presents with increasing shortness of breath for 3 days. Very little cough. No fever no chills. Increasing edema. Appetite is okay. A bit tired rundown. Checks x-ray shows questionable infiltrate. Started antibiotic. INVESTIGATIONS, reviewed in the clinical context: White count 6.7 hemoglobin 13.5 platelets 123 INR 2.1potassium 4.9 bun 49 creatinine 2.23 Troponin I 0.083, proBNP 26,800 EKG tracing personally reviewed by me-atrial fibrillation with a left bundle- branch block back 11/03/2019 Patient is currently lying in the bed comfortably. Leg swelling is improving. Patient is being continued on Lasix 40 mg every 8 hourly. Cardiology and nephrology has seen the patient. Creatinine level is 1.91 today. Lactic acidosis improved. Patient is being continued on antibiotics in the form of ceftriaxone and azithromycin. Afebrile. Blood pressure is on the lower side today. With SBP 107/52 Denied any complaints of chest pain or worsening shortness of breath. Tolerating oral diet. Monitor CBC and BMP tomorrow. Current medications reviewed. Objective - Vital Signs Vital signs: Vital Signs Temp 97.4 F L 11/03/19 08:00 Pulse 76 11/03/19 12:00 Resp 16 11/03/19 12:00 BP 107/52 11/03/19 12:00 Pulse Ox 97 11/03/19 08:00 Intake & Output 11/02/19 11/03/19 11/03/19 18:59 06:59 18:59 Intake Total 960 480 Output Total 2200 1200 Balance 960 -2200 -720 Weight 144.4 kg Intake: Oral 960 480 Output: Urine 2200 1200 Other: # Voids 1 - Exam PHYSICAL EXAMINATION: Patient is lying in the bed comfortably, no acute distress, awake alert and oriented.. HEENT: Normocephalic. Neck is supple. Pupils reactive. Nostrils clear. Oral cavity is moist. Ears reveal no drainage. Neck reveals no JVD, carotid bruits, or thyromegaly. CHEST EXAMINATION: Trachea is central. Symmetrical expansion. Lung p[place] clear to auscultation and percussion. CARDIAC: Normal S1, S2 with no gallops. No murmurs. irregularly irregular rhythm ABDOMEN: Soft. Bowel sounds normal/ Nontender. . No organomegaly. No abdominal bruits. Extremities: 3+ pedal b/l edema. No clubbing or cyanosis Neurologically awake, alert, oriented x3 with well-coordinated movements. No focal deficits noted Skin: No rash or skin lesions. Psychiatric: Coperative. Nonsuicidal Musculoskeletal: No joint swelling or deformity. Normal range of motion. - Labs CBC & Chem 7: 11/01/19 22:44 11/03/19 05:52 Labs: Abnormal Lab Results - Last 24 Hours (Table) 11/03/19 Range/Units 05:52 Carbon Dioxide 20 L (22-30) mmol/L BUN 57 H (9-20) mg/dL Creatinine 1.91 H (0.66-1.25) mg/dL Magnesium 2.6 H (1.6-2.3) mg/dL Microbiology - Last 24 Hours (Table) 11/02/19 01:49 Blood Culture - Preliminary Blood No Growth after 24 hours Assessment and Plan Assessment: -Acute on chronic congestive heart failure exacerbation from diastolic and systolic dysfunction EF 20-25%, POA -Possible right-sided pneumonia, suspect gram-negative organism, POA -Persistent atrial fibrillation/flutter, -Left bundle-branch block -Morbid obesity BMI 52.3 -Hyperlipidemia -Essential hypertension-history of -Acute on Chronic kidney disease stage III from nephrosclerosis at her baseline baseline creatinine 1.7 -Bilateral lower extremity venous insufficiency and chronic venous stasis -Troponin leak from chronic kidney disease, no evidence of acute coronary syndrome -Coumadin monitoring -Hypothyroid Plan: Patient will be continued on IV Lasix 80 mg every 8. Home medications to be continued. Follow lites closely. On IV antibiotic. nephrology and Cardiology on board. Care was discussed with the patient. Strict I's and O's..followup Cr Time with Patient: Greater than 30
[2019-11-04] MEDS: MIDODRINE 5 MG TAB PO SCH ×3 (07:03→16:10)
[2019-11-04] MEDS: LEVOTHYROXINE 88 MCG TAB PO SCH (07:03)
[2019-11-04 07:44] LABS: Anisocytosis Slight; Basophils % (A) 1 %; Eosinophils # (A) 0.2 k/uL (0-0.7); Eosinophils % (A) 4 %; HCT 46.3 % (39.0-53.0); HGB 14.2 gm/dL (13.0-17.5); Hypochromasia Slight; Lymphocytes % (A) 17 %; MCHC 30.6 g/dL (31.0-37.0); MCV 97.8 fL (80.0-100.0); Macrocytosis Slight; Mean Platelet Volume 12.7; Monocytes # (A) 0.7 k/uL (0-1.0); Monocytes % (A) 11 %; Neutrophils # (A) 4.1 k/uL (1.3-7.7); Neutrophils % (A) 66 %; RBC 4.74 m/uL (4.30-5.90); RDW 16.5 % (11.5-15.5); WBC 6.2 k/uL (3.8-10.6)
[2019-11-04 07:54] LABS: Magnesium 2.1 mg/dL (1.6-2.3); Potassium 3.7 mmol/L (3.5-5.1)
[2019-11-04] MEDS: METOPROLOL TARTRATE 50 MG TAB PO SCH ×2 (09:22→23:28)
[2019-11-04] MEDS: allopurinoL 100 MG TAB PO SCH (09:22)
[2019-11-04] MEDS: AZITHROMYCIN 500 MG TAB PO SCH (09:22)
[2019-11-04] MEDS: ASPIRIN 81 MG PO SCH (09:22)
--- NOTE | 2019-11-04 10:41 | P.PN ---
Subjective Progress Note Date: 11/04/19 This is a pleasant 64-year-old gentleman who follows with Dr. Goodwin in the office. He has a history of hypertension, hyperlipidemia, long-standing persistent atrial fibrillation, chronic kidney disease, left bundle branch block, nonischemic cardiomyopathy with known ejection fraction of 20-25%, and obesity. Presented to the emergency department with complaints of progressively worsening shortness of breath over 3 days as well as worsening lower extremity edema. Denies any fever, chills or significant coughing. He's had no chest discomfort, palpitations, PND or orthopnea. He denies any signs or symptoms of sleep apnea. He verbalizes compliance with fluid and dietary restrictions as well as medications but has not followed up in the office since January 2019 and has been hospitalized twice since then. Chest x-ray on admission showed minimal infiltrate and atelectasis right lung base new compared to old exam, no heart failure seen, moderate cardiomegaly unchanged. EKG showed atrial fibr illation with left bundle branch block and PVCs the heart rate of 102. He did have an echocardiogram done in May of this year which showed severe global hypokinesis of the LV, severely impaired LV systolic function with ejection fraction between 20-25%, grade 2 diastolic dysfunction, severely enlarged RV, severely dilated LA, mild aortic regurgitation and mild mitral regurgitation with no evidence of pulmonary hypertension. Labs on admission showed white blood cell count 6.7, hemoglobin 15.5, platelet count 123, INR 2.1, sodium 134, BUN 49, creatinine 2.23, plasma lactic acid 4.2, troponin 0.083 and NT-proBNP of 26,800. He's been initiated on ceftriaxone 1 g IV piggyback daily, azithromycin 500 mg by mouth daily, Lasix 80 mg IV push every 8 hours. Repeat labs this morning showed a sodium 139, potassium 5.0, BUN 57, creatinine 1.91 and magnesium 2.6. Overall he is feeling a bit better today. His breathing has improved some and he feels his edema is a bit better. 11/04/2019 The patient was seen and examined today resting comfortably in bed. Labs today show potassium 3.7, BUN 46, creatinine 1.62. He remains on Lasix 80 mg IV push every 8 hours and is diuresing well. He's being followed by nephrology who placed the patient on a 1500 mL fluid restriction. He is down 3.2 kg since yesterday. He feels as edema is a bit better compared to yesterday continues to have some dyspnea on exertion that he feels has improved some. Objective - Vital Signs Vital signs: Vital Signs Temp 97.4 F L 11/03/19 08:00 Pulse 65 11/04/19 04:00 Resp 18 11/04/19 04:00 BP 103/68 11/04/19 04:00 Pulse Ox 95 11/04/19 04:00 Intake & Output 11/03/19 11/04/19 11/04/19 18:59 06:59 18:59 Intake Total 720 120 Output Total 1825 2925 Balance -1105 -2925 120 Weight 141.2 kg Intake: Oral 720 120 Output: Urine 1825 2925 Other: # Voids 2 - Exam PHYSICAL EXAMINATION: HEENT: Head is atraumatic, normocephalic. Pupils equal, round. Neck is supple. There is no elevated jugular venous pressure. HEART EXAMINATION: Heart sounds irregularly irregular, S1 and S2 with a systolic murmur. CHEST EXAMINATION: Lungs reveal diminished air entry bilateral bases, no rhonchi, no wheezes, no Rales. No chest wall tenderness is noted on palpation or with deep breathing. ABDOMEN: Soft, obese, nontender. Bowel sounds are heard. No organomegaly noted. EXTREMITIES: 1+ peripheral pulses evidence of moderate peripheral edema with erythema and weeping noted and no calf tenderness noted. NEUROLOGIC patient is awake, alert and oriented x3. . - Labs CBC & Chem 7: 11/04/19 07:00 11/04/19 07:00 Labs: Abnormal Lab Results - Last 24 Hours (Table) 11/04/19 11/04/19 Range/Units 07:00 07:00 MCHC 30.6 L (31.0-37.0) g/dL RDW 16.5 H (11.5-15.5) % BUN 46 H (9-20) mg/dL Creatinine 1.62 H (0.66-1.25) mg/dL Microbiology - Last 24 Hours (Table) 11/02/19 01:49 Blood Culture - Preliminary Blood No Growth after 48 hours Assessment and Plan Assessment: #1 acute on chronic systolic congestive heart failure #2 nonischemic cardiomyopathy with a known ejection fraction of 20-25% #3 long-standing persistent atrial fibrillation, anticoagulated on Coumadin #4 hypertension with episodes of hypotension, currently on midodrine #5 hyperlipidemia #6 obesity Plan: From cardiology's perspective, medications were reviewed and will continue the same. Continue Lasix 80 mg IV push every 8 hours. Depending on the trend of the blood pressure we may consider adding hydralazine. We will monitor renal function, electrolytes, daily weight, and intake and outputs. Monitor INR and adjust Coumadin accordingly to keep INR between 2.0 and 3.0. We will continue to follow the patient for further recommendations accordingly. PROP ATTENDANT note has been reviewed, I agree with a documented findings and plan of care. Patient was seen and examined.
[2019-11-04 11:26] LABS: Platelet Count 137 k/uL (150-450)
[2019-11-04 11:27] LABS: Large Platelets Present
--- NOTE | 2019-11-04 12:11 | P.PN ---
Subjective Patient is seen in follow for acute kidney injury on chronic kidney disease. Renal function continues to improve. Maintained on IV Lasix 80 mg 3 times daily. Good urine output. Edema improving. Weight trending down. Denies chest pain or shortness of breath. Vital signs are stable. General: The patient appeared well nourished and normally developed. HEENT: Head exam is unremarkable. Neck is without jugular venous distension. LUNGS: Breath sounds decreased. HEART: Rate and Rhythm are regular. ABDOMEN: Soft, nontender. Obese. EXTREMITITES: 2+ edema. Objective - Vital Signs Vital signs: Vital Signs Temp 97.4 F L 11/03/19 08:00 Pulse 72 11/04/19 08:00 Resp 16 11/04/19 11:47 BP 101/65 11/04/19 08:00 Pulse Ox 93 L 11/04/19 08:00 Intake & Output 11/03/19 11/04/19 11/04/19 18:59 06:59 18:59 Intake Total 720 220 Output Total 1825 2925 500 Balance -1105 -2925 -280 Weight 141.2 kg Intake: Intake, IV Titration 100 Amount cefTRIAXone 1 gm In 100 Sodium Chloride 0.9% 50 ml @ 100 mls/hr IVPB DAILY@2100 [facility] Rx#: [id number] Oral 720 120 Output: Urine 1825 2925 500 Other: # Voids 2 - Labs CBC & Chem 7: 11/04/19 07:00 11/04/19 07:00 Labs: Abnormal Lab Results - Last 24 Hours (Table) 11/04/19 11/04/19 Range/Units 07:00 07:00 MCHC 30.6 L (31.0-37.0) g/dL RDW 16.5 H (11.5-15.5) % Plt Count 137 L (150-450) k/uL BUN 46 H (9-20) mg/dL Creatinine 1.62 H (0.66-1.25) mg/dL Microbiology - Last 24 Hours (Table) 11/02/19 01:49 Blood Culture - Preliminary Blood No Growth after 48 hours Assessment and Plan Plan: assessment: 1. acute kidney injury mostly prerenal secondary to cardiorenal syndrome. Creatinine was 2.23 on admission and is 1.62 today. 2. Acute on chronic systolic CHF with ejection fraction of 20-25%. 3. Volume overload. Improving with diuresis. 4. Metabolic acidosis secondary to acute kidney injury. Better. 5. Chronic A. fib maintained on Lopressor and anticoagulation. Plan: Maintain IV diuresis. Resume potassium supplementation. Low-salt diet and 1500 mL fluid restriction. Continue to monitor renal function and urine output.
[2019-11-04] MEDS: POTASSIUM CHLORIDE ER 20 MEQ TAB.ER PO SCH (12:23)
[2019-11-04] MEDS: WARFARIN 5 MG TAB PO SCH (16:10)
[2019-11-05] MEDS: MIDODRINE 5 MG TAB PO SCH ×3 (06:47→17:33)
[2019-11-05] MEDS: LEVOTHYROXINE 88 MCG TAB PO SCH (06:47)
[2019-11-05 07:06] LABS: INR 1.8 (<1.2); Prothrombin Time 17.8 sec (9.0-12.0)
[2019-11-05 07:19] LABS: Calcium 9.2 mg/dL (8.4-10.2); Magnesium 2.1 mg/dL (1.6-2.3); Potassium 3.7 mmol/L (3.5-5.1)
[2019-11-05] MEDS: FUROSEMIDE 10 MG/ML 10 ML VIAL IV SCH ×3 (09:37→23:16)
[2019-11-05] MEDS: METOPROLOL TARTRATE 50 MG TAB PO SCH ×2 (09:38→20:09)
[2019-11-05] MEDS: AZITHROMYCIN 500 MG TAB PO SCH (09:38)
[2019-11-05] MEDS: POTASSIUM CHLORIDE ER 20 MEQ TAB.ER PO SCH (09:38)
[2019-11-05] MEDS: allopurinoL 100 MG TAB PO SCH (09:38)
[2019-11-05] MEDS: ASPIRIN 81 MG PO SCH (09:38)
--- NOTE | 2019-11-05 11:27 | P.PN ---
Subjective Patient is seen in follow for acute kidney injury on chronic kidney disease. Renal function continues to improve. Maintained on IV Lasix 80 mg 3 times daily. Good urine output. Edema improving. Denies chest pain or shortness of breath. Vital signs are stable. General: The patient appeared well nourished and normally developed. HEENT: Head exam is unremarkable. Neck is without jugular venous distension. LUNGS: Breath sounds decreased. HEART: Rate and Rhythm are regular. ABDOMEN: Soft, nontender. Obese. EXTREMITITES: 2+ edema. Objective - Vital Signs Vital signs: Vital Signs Temp 97.7 F 11/05/19 00:00 Pulse 67 11/05/19 04:00 Resp 18 11/05/19 04:00 BP 123/83 11/05/19 04:00 Pulse Ox 96 11/05/19 04:00 Intake & Output 11/04/19 11/05/19 11/05/19 18:59 06:59 18:59 Intake Total 700 40 0 Output Total 1000 950 Balance -300 -910 0 Weight 142.3 kg Intake: Intake, IV Titration 100 Amount cefTRIAXone 1 gm In 100 Sodium Chloride 0.9% 50 ml @ 100 mls/hr IVPB DAILY@2100 [facility] Rx#: [id number] Oral 600 40 0 Output: Urine 1000 950 Other: # Voids 1 1 - Labs CBC & Chem 7: 11/04/19 07:00 11/05/19 06:40 Labs: Abnormal Lab Results - Last 24 Hours (Table) 11/04/19 11/05/19 11/05/19 Range/Units 07:00 06:40 06:40 MCHC 30.6 L (31.0-37.0) g/dL RDW 16.5 H (11.5-15.5) % Plt Count 137 L (150-450) k/uL PT 17.8 H (9.0-12.0) sec INR 1.8 H (<1.2) BUN 40 H (9-20) mg/dL Creatinine 1.39 H (0.66-1.25) mg/dL Microbiology - Last 24 Hours (Table) 11/02/19 01:49 Blood Culture - Preliminary Blood No Growth after 72 hours Assessment and Plan Plan: assessment: 1. acute kidney injury mostly prerenal secondary to cardiorenal syndrome. Creatinine was 2.23 on admission and is 1.39 today. 2. Acute on chronic systolic CHF with ejection fraction of 20-25%. 3. Volume overload. Improving with diuresis. 4. Metabolic acidosis secondary to acute kidney injury. Better. 5. Chronic A. fib maintained on Lopressor and anticoagulation. Plan: Maintain IV diuresis. Maintain potassium supplementation. Low-salt diet and 1500 mL fluid restriction. Continue to monitor renal function and urine output.
--- NOTE | 2019-11-05 11:29 | P.PN ---
Subjective Progress Note Date: 11/05/19 This is a pleasant 64-year-old gentleman who follows with Dr. Goodwin in the office. He has a history of hypertension, hyperlipidemia, long-standing persistent atrial fibrillation, chronic kidney disease, left bundle branch block, nonischemic cardiomyopathy with known ejection fraction of 20-25%, and obesity. Presented to the emergency department with complaints of progressively worsening shortness of breath over 3 days as well as worsening lower extremity edema. Denies any fever, chills or significant coughing. He's had no chest discomfort, palpitations, PND or orthopnea. He denies any signs or symptoms of sleep apnea. He verbalizes compliance with fluid and dietary restrictions as well as medications but has not followed up in the office since January 2019 and has been hospitalized twice since then. Chest x-ray on admission showed minimal infiltrate and atelectasis right lung base new compared to old exam, no heart failure seen, moderate cardiomegaly unchanged. EKG showed atrial fibr illation with left bundle branch block and PVCs the heart rate of 102. He did have an echocardiogram done in May of this year which showed severe global hypokinesis of the LV, severely impaired LV systolic function with ejection fraction between 20-25%, grade 2 diastolic dysfunction, severely enlarged RV, severely dilated LA, mild aortic regurgitation and mild mitral regurgitation with no evidence of pulmonary hypertension. Labs on admission showed white blood cell count 6.7, hemoglobin 15.5, platelet count 123, INR 2.1, sodium 134, BUN 49, creatinine 2.23, plasma lactic acid 4.2, troponin 0.083 and NT-proBNP of 26,800. He's been initiated on ceftriaxone 1 g IV piggyback daily, azithromycin 500 mg by mouth daily, Lasix 80 mg IV push every 8 hours. Repeat labs this morning showed a sodium 139, potassium 5.0, BUN 57, creatinine 1.91 and magnesium 2.6. Overall he is feeling a bit better today. His breathing has improved some and he feels his edema is a bit better. 11/04/2019 The patient was seen and examined today resting comfortably in bed. Labs today show potassium 3.7, BUN 46, creatinine 1.62. He remains on Lasix 80 mg IV push every 8 hours and is diuresing well. He's being followed by nephrology who placed the patient on a 1500 mL fluid restriction. He is down 3.2 kg since yesterday. He feels as edema is a bit better compared to yesterday continues to have some dyspnea on exertion that he feels has improved some. 11/05/2019 The patient was seen and examined this morning sitting up at the edge of the bed. He is overall feeling better. His breathing is stable. He feels as edema is improving. Labs show an improving renal function with a BUN of 40 and creati nine of 1.39. INR is 1.8 today. Vital signs are stable. He continues to be on Lasix 80 mg IV push every 8 hours. Nephrology is also following. Objective - Vital Signs Vital signs: Vital Signs Temp 97.7 F 11/05/19 00:00 Pulse 67 11/05/19 04:00 Resp 18 11/05/19 04:00 BP 123/83 11/05/19 04:00 Pulse Ox 96 11/05/19 04:00 Intake & Output 11/04/19 11/05/19 11/05/19 18:59 06:59 18:59 Intake Total 700 40 0 Output Total 1000 950 Balance -300 -910 0 Weight 142.3 kg Intake: Intake, IV Titration 100 Amount cefTRIAXone 1 gm In 100 Sodium Chloride 0.9% 50 ml @ 100 mls/hr IVPB DAILY@2100 [facility] Rx#: [id number] Oral 600 40 0 Output: Urine 1000 950 Other: # Voids 1 1 - Exam PHYSICAL EXAMINATION: HEENT: Head is atraumatic, normocephalic. Pupils equal, round. Neck is supple. There is no elevated jugular venous pressure. HEART EXAMINATION: Heart sounds irregularly irregular, S1 and S2 with a systolic murmur. CHEST EXAMINATION: Lungs reveal diminished air entry bilateral bases, no rhonchi, no wheezes, no Rales. No chest wall tenderness is noted on palpation or with deep breathing. ABDOMEN: Soft, obese, nontender. Bowel sounds are heard. No organomegaly noted. EXTREMITIES: 1+ peripheral pulses evidence of moderate peripheral edema with erythema and weeping noted and no calf tenderness noted. NEUROLOGIC patient is awake, alert and oriented x3. . - Labs CBC & Chem 7: 11/04/19 07:00 11/05/19 06:40 Labs: Abnormal Lab Results - Last 24 Hours (Table) 11/04/19 11/05/19 11/05/19 Range/Units 07:00 06:40 06:40 MCHC 30.6 L (31.0-37.0) g/dL RDW 16.5 H (11.5-15.5) % Plt Count 137 L (150-450) k/uL PT 17.8 H (9.0-12.0) sec INR 1.8 H (<1.2) BUN 40 H (9-20) mg/dL Creatinine 1.39 H (0.66-1.25) mg/dL Microbiology - Last 24 Hours (Table) 11/02/19 01:49 Blood Culture - Preliminary Blood No Growth after 72 hours Assessment and Plan Assessment: #1 acute on chronic systolic congestive heart failure #2 nonischemic cardiomyopathy with a known ejection fraction of 20-25% #3 long-standing persistent atrial fibrillation, anticoagulated on Coumadin #4 hypertension with episodes of hypotension, currently on midodrine #5 hyperlipidemia #6 obesity Plan: From cardiology's perspective, continue Lasix 80 mg IV push every 8 hours. Depending on the trend of the blood pressure we may consider adding hydralazine. We will monitor renal function, electrolytes, daily weight, and intake and outputs. INR is subtherapeutic we will give Coumadin 7.5 mg today. Monitor INR and adjust Coumadin accordingly to keep INR between 2.0 and 3.0. We will continue to follow the patient for further recommendations accordingly. C[employer] O[employer] note has been reviewed, I agree with a documented findings and plan of care. Patient was seen and examined.
[2019-11-05] MEDS ORDERED: WARFARIN 7.5 MG TAB PO ONE (18:00)
--- NOTE | 2019-11-05 23:11 | P.PN ---
Subjective Progress Note Date: 11/04/19 Principal diagnosis: Acute on chronic CHF with systolic dysfunction This is a 64-year-old patient of Dr. Hall. Chronic stable medical conditions include congestive heart failure EF 20-25%, atrial flutter fibrillation, left bundle-branch block, morbid obesity, hyperlipidemia, bilateral lower extremity venous insufficiency and chronic venous stasis, hypothyroid. Patient now presents with increasing shortness of breath for 3 days. Very little cough. No fever no chills. Increasing edema. Appetite is okay. A bit tired rundown. Checks x-ray shows questionable infiltrate. Started antibiotic. INVESTIGATIONS, reviewed in the clinical context: White count 6.7 hemoglobin 13.5 platelets 123 INR 2.1potassium 4.9 bun 49 creatinine 2.23 Troponin I 0.083, proBNP 26,800 EKG tracing personally reviewed by me-atrial fibrillation with a left bundle- branch block back 11/03/2019 Patient is currently lying in the bed comfortably. Leg swelling is improving. Patient is being continued on Lasix 40 mg every 8 hourly. Cardiology and nephrology has seen the patient. Creatinine level is 1.91 today. Lactic acidosis improved. Patient is being continued on antibiotics in the form of ceftriaxone and azithromycin. Afebrile. Blood pressure is on the lower side today. With SBP 107/52 Denied any complaints of chest pain or worsening shortness of breath. Tolerating oral diet. Monitor CBC and BMP tomorrow. 11/04/2019 Patient is currently sitting on the side of the bed. No complaints of chest pain or shortness of breath. Bilateral lower extremity swelling is improving. Currently on IV Lasix 80 mg 3 times daily. Renal function continues to improve. No fever no chills. Cardiology and nephrology is following. Current medications reviewed. Objective - Vital Signs Vital signs: Vital Signs Temp 97.4 F L 11/03/19 08:00 Pulse 68 11/04/19 16:00 Resp 16 11/04/19 16:00 BP 140/83 11/04/19 16:00 Pulse Ox 100 11/04/19 16:00 Intake & Output 11/04/19 11/04/19 11/05/19 06:59 18:59 06:59 Intake Total 700 Output Total 2925 1000 Balance -2925 -300 Weight 141.2 kg Intake: Intake, IV Titration 100 Amount cefTRIAXone 1 gm In 100 Sodium Chloride 0.9% 50 ml @ 100 mls/hr IVPB DAILY@2100 [facility] Rx#: [id number] Oral 600 Output: Urine 2925 1000 Other: # Voids 2 1 - Exam PHYSICAL EXAMINATION: Patient is lying in the bed comfortably, no acute distress, awake alert and oriented.. HEENT: Normocephalic. Neck is supple. Pupils reactive. Nostrils clear. Oral cavity is moist. Ears reveal no drainage. Neck reveals no JVD, carotid bruits, or thyromegaly. CHEST EXAMINATION: Trachea is central. Symmetrical expansion. Lung pittman clear to auscultation and percussion. CARDIAC: Normal S1, S2 with no gallops. No murmurs. irregularly irregular rhythm ABDOMEN: Soft. Bowel sounds normal/ Nontender. . No organomegaly. No abdominal bruits. Extremities: 3+ pedal b/l edema. No clubbing or cyanosis Neurologically awake, alert, oriented x3 with well-coordinated movements. No focal deficits noted Skin: No rash or skin lesions. Psychiatric: Coperative. Nonsuicidal Musculoskeletal: No joint swelling or deformity. Normal range of motion. - Labs CBC & Chem 7: 11/04/19 07:00 11/05/19 06:40 Labs: Abnormal Lab Results - Last 24 Hours (Table) 11/04/19 11/04/19 Range/Units 07:00 07:00 MCHC 30.6 L (31.0-37.0) g/dL RDW 16.5 H (11.5-15.5) % Plt Count 137 L (150-450) k/uL BUN 46 H (9-20) mg/dL Creatinine 1.62 H (0.66-1.25) mg/dL Microbiology - Last 24 Hours (Table) 11/02/19 01:49 Blood Culture - Preliminary Blood No Growth after 48 hours Assessment and Plan Assessment: -Acute on chronic congestive heart failure exacerbation from diastolic and systolic dysfunction EF 20-25%, POA -Possible right-sided pneumonia, suspect gram-negative organism, POA -Persistent atrial fibrillation/flutter on AC with Warfarin -Left bundle-branch block -Morbid obesity BMI 52.3 -Hyperlipidemia -Essential hypertension-history of -Acute on Chronic kidney disease stage III from nephrosclerosis at her baseline baseline creatinine 1.7 -Bilateral lower extremity venous insufficiency and chronic venous stasis -Troponin leak from chronic kidney disease, no evidence of acute coronary syndrome -Coumadin monitoring -Hypothyroid Plan: Patient will be continued on IV Lasix 80 mg every 8. Home medications to be continued. Follow lites closely. On IV antibiotic. nephrology and Cardiology on board. Care was discussed with the patient. Strict I's and O's..followup Cr Time with Patient: Greater than 30
--- NOTE | 2019-11-05 23:14 | P.PN ---
Subjective Progress Note Date: 11/05/19 Principal diagnosis: Acute on chronic CHF with systolic dysfunction This is a 64-year-old patient of Dr. Hall. Chronic stable medical conditions include congestive heart failure EF 20-25%, atrial flutter fibrillation, left bundle-branch block, morbid obesity, hyperlipidemia, bilateral lower extremity venous insufficiency and chronic venous stasis, hypothyroid. Patient now presents with increasing shortness of breath for 3 days. Very little cough. No fever no chills. Increasing edema. Appetite is okay. A bit tired rundown. Checks x-ray shows questionable infiltrate. Started antibiotic. INVESTIGATIONS, reviewed in the clinical context: White count 6.7 hemoglobin 13.5 platelets 123 INR 2.1potassium 4.9 bun 49 creatinine 2.23 Troponin I 0.083, proBNP 26,800 EKG tracing personally reviewed by me-atrial fibrillation with a left bundle- branch block back 11/03/2019 Patient is currently lying in the bed comfortably. Leg swelling is improving. Patient is being continued on Lasix 40 mg every 8 hourly. Cardiology and nephrology has seen the patient. Creatinine level is 1.91 today. Lactic acidosis improved. Patient is being continued on antibiotics in the form of ceftriaxone and azithromycin. Afebrile. Blood pressure is on the lower side today. With SBP 107/52 Denied any complaints of chest pain or worsening shortness of breath. Tolerating oral diet. Monitor CBC and BMP tomorrow. 11/04/2019 Patient is currently sitting on the side of the bed. No complaints of chest pain or shortness of breath. Bilateral lower extremity swelling is improving. Currently on IV Lasix 80 mg 3 times daily. Renal function continues to improve. No fever no chills. Cardiology and nephrology is following. 11/05/2019 Patient is currently denied any complaints of chest pain or shortness of breath. Bilateral lower extremity swelling is improving. Currently maintained Lasix 80 mg 3 times daily. BUN 40 and creatinine improved to 1.39. INR is 1.8. Nephrology and cardiology on board. Current medications reviewed. Objective - Vital Signs Vital signs: Vital Signs Temp 97.7 F 11/05/19 00:00 Pulse 67 11/05/19 12:00 Resp 16 11/05/19 16:00 BP 123/85 11/05/19 12:00 Pulse Ox 99 08/12/20 12:00 Intake & Output 11/05/19 11/05/19 11/06/19 06:59 18:59 06:59 Intake Total 40 340 Output Total 950 400 Balance -910 -60 Weight 142.3 kg Intake: Intake, IV Titration 100 Amount cefTRIAXone 1 gm In 100 Sodium Chloride 0.9% 50 ml @ 100 mls/hr IVPB DAILY@2100 [facility] Rx#: [id number] Oral 40 240 Output: Urine 950 400 Other: # Voids 1 - Exam PHYSICAL EXAMINATION: Patient is lying in the bed comfortably, no acute distress, awake alert and oriented.. HEENT: Normocephalic. Neck is supple. Pupils reactive. Nostrils clear. Oral cavity is moist. Ears reveal no drainage. Neck reveals no JVD, carotid bruits, or thyromegaly. CHEST EXAMINATION: Trachea is central. Symmetrical expansion. Lung p[place]man clear to auscultation and percussion. CARDIAC: Normal S1, S2 with no gallops. No murmurs. irregularly irregular rhythm ABDOMEN: Soft. Bowel sounds normal/ Nontender. . No organomegaly. No abdominal bruits. Extremities: 3+ pedal b/l edema. No clubbing or cyanosis Neurologically awake, alert, oriented x3 with well-coordinated movements. No focal deficits noted Skin: No rash or skin lesions. Psychiatric: Coperative. Nonsuicidal Musculoskeletal: No joint swelling or deformity. Normal range of motion. - Labs CBC & Chem 7: 11/04/19 07:00 11/05/19 06:40 Labs: Abnormal Lab Results - Last 24 Hours (Table) 11/05/19 11/05/19 Range/Units 06:40 06:40 PT 17.8 H (9.0-12.0) sec INR 1.8 H (<1.2) BUN 40 H (9-20) mg/dL Creatinine 1.39 H (0.66-1.25) mg/dL Microbiology - Last 24 Hours (Table) 11/02/19 01:49 Blood Culture - Preliminary Blood No Growth after 72 hours Assessment and Plan Assessment: -Acute on chronic congestive heart failure exacerbation from diastolic and systolic dysfunction EF 20-25%, POA -Possible right-sided pneumonia, suspect gram-negative organism, POA -Persistent atrial fibrillation/flutter on AC with Warfarin -Left bundle-branch block -Morbid obesity BMI 52.3 -Hyperlipidemia -Essential hypertension-history of -Acute on Chronic kidney disease stage III from nephrosclerosis at her baseline baseline creatinine 1.7 -Bilateral lower extremity venous insufficiency and chronic venous stasis -Troponin leak from chronic kidney disease, no evidence of acute coronary syndrome -Coumadin monitoring -Hypothyroid Plan: Patient will be continued on IV Lasix 80 mg every 8. Home medications to be continued. Follow lites closely. On IV antibiotic. nephrology and Cardiology on board. Care was discussed with the patient. Strict I's and O's..followup Cr Time with Patient: Greater than 30
[2019-11-06] MEDS: LEVOTHYROXINE 88 MCG TAB PO SCH (06:32)
[2019-11-06] MEDS: MIDODRINE 5 MG TAB PO SCH ×3 (06:32→17:47)
[2019-11-06 07:31] LABS: Calcium 9.1 mg/dL (8.4-10.2); Magnesium 2.1 mg/dL (1.6-2.3); Potassium 3.8 mmol/L (3.5-5.1)
[2019-11-06] MEDS: allopurinoL 100 MG TAB PO SCH (08:32)
[2019-11-06] MEDS: POTASSIUM CHLORIDE ER 20 MEQ TAB.ER PO SCH (08:32)
[2019-11-06] MEDS: METOPROLOL TARTRATE 50 MG TAB PO SCH ×2 (08:32→19:50)
[2019-11-06] MEDS: FUROSEMIDE 10 MG/ML 10 ML VIAL IV SCH ×3 (08:32→23:56)
[2019-11-06] MEDS: AZITHROMYCIN 500 MG TAB PO SCH (08:32)
[2019-11-06] MEDS: ASPIRIN 81 MG PO SCH (08:32)
--- NOTE | 2019-11-06 10:31 | P.PN ---
Subjective Progress Note Date: 11/06/19 This is a pleasant 64-year-old gentleman who follows with Dr. Goodwin in the office. He has a history of hypertension, hyperlipidemia, long-standing persistent atrial fibrillation, chronic kidney disease, left bundle branch block, nonischemic cardiomyopathy with known ejection fraction of 20-25%, and obesity. Presented to the emergency department with complaints of progressively worsening shortness of breath over 3 days as well as worsening lower extremity edema. Denies any fever, chills or significant coughing. He's had no chest discomfort, palpitations, PND or orthopnea. He denies any signs or symptoms of sleep apnea. He verbalizes compliance with fluid and dietary restrictions as well as medications but has not followed up in the office since January 2019 and has been hospitalized twice since then. Chest x-ray on admission showed minimal infiltrate and atelectasis right lung base new compared to old exam, no heart failure seen, moderate cardiomegaly unchanged. EKG showed atrial fibr illation with left bundle branch block and PVCs the heart rate of 102. He did have an echocardiogram done in May of this year which showed severe global hypokinesis of the LV, severely impaired LV systolic function with ejection fraction between 20-25%, grade 2 diastolic dysfunction, severely enlarged RV, severely dilated LA, mild aortic regurgitation and mild mitral regurgitation with no evidence of pulmonary hypertension. Labs on admission showed white blood cell count 6.7, hemoglobin 15.5, platelet count 123, INR 2.1, sodium 134, BUN 49, creatinine 2.23, plasma lactic acid 4.2, troponin 0.083 and NT-proBNP of 26,800. He's been initiated on ceftriaxone 1 g IV piggyback daily, azithromycin 500 mg by mouth daily, Lasix 80 mg IV push every 8 hours. Repeat labs this morning showed a sodium 139, potassium 5.0, BUN 57, creatinine 1.91 and magnesium 2.6. Overall he is feeling a bit better today. His breathing has improved some and he feels his edema is a bit better. 11/04/2019 The patient was seen and examined today resting comfortably in bed. Labs today show potassium 3.7, BUN 46, creatinine 1.62. He remains on Lasix 80 mg IV push every 8 hours and is diuresing well. He's being followed by nephrology who placed the patient on a 1500 mL fluid restriction. He is down 3.2 kg since yesterday. He feels as edema is a bit better compared to yesterday continues to have some dyspnea on exertion that he feels has improved some. 11/05/2019 The patient was seen and examined this morning sitting up at the edge of the bed. He is overall feeling better. His breathing is stable. He feels as edema is improving. Labs show an improving renal function with a BUN of 40 and creati nine of 1.39. INR is 1.8 today. Vital signs are stable. He continues to be on Lasix 80 mg IV push every 8 hours. Nephrology is also following. 11/06/2019 The patient was seen and examined this morning resting comfortably in bed. He feels his breathing is stable. His edema has improved somewhat. His weight is down over 2 kg since yesterday. Renal function continues to improve with a BUN of 36 and creatinine 1.2. INR results are pending. He continues on Lasix 80 mg daily push every 8 hours. Objective - Vital Signs Vital signs: Vital Signs Temp 97.9 F 11/06/19 04:00 Pulse 75 11/06/19 08:00 Resp 16 11/06/19 08:00 BP 91/60 11/06/19 08:00 Pulse Ox 95 11/06/19 08:00 Intake & Output 11/05/19 11/06/19 11/06/19 18:59 06:59 18:59 Intake Total 340 Output Total 400 1200 500 Balance -60 -1200 -500 Weight 139.9 kg Intake: Intake, IV Titration 100 Amount cefTRIAXone 1 gm In 100 Sodium Chloride 0.9% 50 ml @ 100 mls/hr IVPB DAILY@2100 [facility] Rx#: [id number] Oral 240 Output: Urine 400 1200 500 - Exam PHYSICAL EXAMINATION: HEENT: Head is atraumatic, normocephalic. Pupils equal, round. Neck is supple. There is no elevated jugular venous pressure. HEART EXAMINATION: Heart sounds irregularly irregular, S1 and S2 with a systolic murmur. CHEST EXAMINATION: Lungs reveal diminished air entry bilateral bases, no rhonchi, no wheezes, no Rales. No chest wall tenderness is noted on palpation or with deep breathing. ABDOMEN: Soft, obese, nontender. Bowel sounds are heard. No organomegaly noted. EXTREMITIES: 1+ peripheral pulses evidence of moderate peripheral edema with e rythema and weeping noted with minimal improvement since yesterday and no calf tenderness noted. NEUROLOGIC patient is awake, alert and oriented x3. . - Labs CBC & Chem 7: 11/04/19 07:00 11/06/19 06:45 Labs: Abnormal Lab Results - Last 24 Hours (Table) 11/06/19 Range/Units 06:45 BUN 36 H (9-20) mg/dL Microbiology - Last 24 Hours (Table) 11/02/19 01:49 Blood Culture - Preliminary Blood No Growth after 96 hours Assessment and Plan Assessment: #1 acute on chronic systolic congestive heart failure #2 nonischemic cardiomyopathy with a known ejection fraction of 20-25% #3 long-standing persistent atrial fibrillation, anticoagulated on Coumadin #4 hypertension with episodes of hypotension, currently on midodrine #5 hyperlipidemia #6 obesity Plan: From cardiology's perspective, continue Lasix 80 mg IV push every 8 hours. Depending on the trend of the blood pressure we may consider adding hydralazine. We will continue to monitor renal function, electrolytes, daily weight, and intake and outputs. Monitor INR and adjust Coumadin accordingly to keep INR between 2.0 and 3.0. Today's INR pending. We will continue to follow the patient for further recommendations accordingly. [employer] note has been reviewed, I agree with a documented findings and plan of care. Patient was seen and examined.
--- NOTE | 2019-11-06 10:50 | P.PN ---
Subjective Patient is seen in follow for acute kidney injury on chronic kidney disease. Renal function continues to improve. Maintained on IV Lasix 80 mg 3 times daily. Good urine output. Edema improving. Denies chest pain or shortness of breath. Weight trending down. Feels better overall. Vital signs are stable. General: The patient appeared well nourished and normally developed. HEENT: Head exam is unremarkable. Neck is without jugular venous distension. LUNGS: Breath sounds decreased. HEART: Rate and Rhythm are regular. ABDOMEN: Soft, nontender. Obese. EXTREMITITES: 2+ edema. Objective - Vital Signs Vital signs: Vital Signs Temp 97.9 F 11/06/19 04:00 Pulse 75 11/06/19 08:00 Resp 16 11/06/19 08:00 BP 91/60 11/06/19 08:00 Pulse Ox 95 11/06/19 08:00 Intake & Output 11/05/19 11/06/19 11/06/19 18:59 06:59 18:59 Intake Total 340 Output Total 400 1200 500 Balance -60 -1200 -500 Weight 139.9 kg Intake: Intake, IV Titration 100 Amount cefTRIAXone 1 gm In 100 Sodium Chloride 0.9% 50 ml @ 100 mls/hr IVPB DAILY@2100 [facility] Rx#: [id number] Oral 240 Output: Urine 400 1200 500 - Labs CBC & Chem 7: 11/04/19 07:00 11/06/19 06:45 Labs: Abnormal Lab Results - Last 24 Hours (Table) 11/06/19 Range/Units 06:45 BUN 36 H (9-20) mg/dL Microbiology - Last 24 Hours (Table) 11/02/19 01:49 Blood Culture - Preliminary Blood No Growth after 96 hours Assessment and Plan Plan: assessment: 1. acute kidney injury mostly prerenal secondary to cardiorenal syndrome. Creatinine was 2.23 on admission and is 1.2 today. 2. Acute on chronic systolic CHF with ejection fraction of 20-25%. 3. Volume overload. Improving with diuresis. 4. Metabolic acidosis secondary to acute kidney injury. Better. 5. Chronic A. fib maintained on Lopressor and anticoagulation. Plan: Maintain IV diuresis -can start tapering the dose tomorrow. Maintain potassium supplementation. Low-salt diet and 1500 mL fluid restriction. Continue to monitor renal function and urine output.
[2019-11-06 12:25] LABS: INR 1.7 (<1.2); Prothrombin Time 17.1 sec (9.0-12.0)
[2019-11-06] MEDS ORDERED: WARFARIN 5 MG TAB PO SCH (18:00)
--- NOTE | 2019-11-07 00:46 | P.PN ---
Subjective Progress Note Date: 11/06/19 Principal diagnosis: Acute on chronic CHF with systolic dysfunction This is a 64-year-old patient of Dr. Hall. Chronic stable medical conditions include congestive heart failure EF 20-25%, atrial flutter fibrillation, left bundle-branch block, morbid obesity, hyperlipidemia, bilateral lower extremity venous insufficiency and chronic venous stasis, hypothyroid. Patient now presents with increasing shortness of breath for 3 days. Very little cough. No fever no chills. Increasing edema. Appetite is okay. A bit tired rundown. Checks x-ray shows questionable infiltrate. Started antibiotic. INVESTIGATIONS, reviewed in the clinical context: White count 6.7 hemoglobin 13.5 platelets 123 INR 2.1potassium 4.9 bun 49 creatinine 2.23 Troponin I 0.083, proBNP 26,800 EKG tracing personally reviewed by me-atrial fibrillation with a left bundle- branch block back 11/03/2019 Patient is currently lying in the bed comfortably. Leg swelling is improving. Patient is being continued on Lasix 40 mg every 8 hourly. Cardiology and nephrology has seen the patient. Creatinine level is 1.91 today. Lactic acidosis improved. Patient is being continued on antibiotics in the form of ceftriaxone and azithromycin. Afebrile. Blood pressure is on the lower side today. With SBP 107/52 Denied any complaints of chest pain or worsening shortness of breath. Tolerating oral diet. Monitor CBC and BMP tomorrow. 11/04/2019 Patient is currently sitting on the side of the bed. No complaints of chest pain or shortness of breath. Bilateral lower extremity swelling is improving. Currently on IV Lasix 80 mg 3 times daily. Renal function continues to improve. No fever no chills. Cardiology and nephrology is following. 11/05/2019 Patient is currently denied any complaints of chest pain or shortness of breath. Bilateral lower extremity swelling is improving. Currently maintained Lasix 80 mg 3 times daily. BUN 40 and creatinine improved to 1.39. INR is 1.8. Nephrology and cardiology on board. 11/06/2019 Patient is currently sitting on side of the bed comfortably. Still having bilateral lower extremity significant swelling but improving very slowly. Wilfredo watkins on IV Lasix 80 mg 3 times daily. No complaints of chest pain or shortness of breath. No fever no chills. Laboratory data showed INR 1.7 BUN 36 and creatinine 1.2 and potassium 3.8 Current medications reviewed. Objective - Vital Signs Vital signs: Vital Signs Temp 97.9 F 11/06/19 04:00 Pulse 60 11/06/19 16:00 Resp 16 11/06/19 16:00 BP 113/76 11/06/19 16:00 Pulse Ox 96 11/06/19 16:00 Intake & Output 11/06/19 11/06/19 11/07/19 06:59 18:59 06:59 Intake Total 1291 Output Total 1200 1400 Balance -1200 -109 Weight 139.9 kg Intake: Oral 1291 Output: Urine 1200 1400 - Exam PHYSICAL EXAMINATION: Patient is lying in the bed comfortably, no acute distress, awake alert and oriented.. HEENT: Normocephalic. Neck is supple. Pupils reactive. Nostrils clear. Oral cavity is moist. Ears reveal no drainage. Neck reveals no JVD, carotid bruits, or thyromegaly. CHEST EXAMINATION: Trachea is central. Symmetrical expansion. Lung pittman clear to auscultation and percussion. CARDIAC: Normal S1, S2 with no gallops. No murmurs. irregularly irregular rhythm ABDOMEN: Soft. Bowel sounds normal/ Nontender. . No organomegaly. No abdominal bruits. Extremities: 3+ pedal b/l edema. No clubbing or cyanosis Neurologically awake, alert, oriented x3 with well-coordinated movements. No focal deficits noted Skin: No rash or skin lesions. Psychiatric: Coperative. Nonsuicidal Musculoskeletal: No joint swelling or deformity. Normal range of motion. - Labs CBC & Chem 7: 11/04/19 07:00 11/06/19 06:45 Labs: Abnormal Lab Results - Last 24 Hours (Table) 11/06/19 11/06/19 Range/Units 06:45 11:48 PT 17.1 H (9.0-12.0) sec INR 1.7 H (<1.2) BUN 36 H (9-20) mg/dL Microbiology - Last 24 Hours (Table) 11/02/19 01:49 Blood Culture - Preliminary Blood No Growth after 96 hours Assessment and Plan Assessment: -Acute on chronic congestive heart failure exacerbation from diastolic and systolic dysfunction EF 20-25%, POA -Possible right-sided pneumonia, suspect gram-negative organism, POA - acute kidney injury mostly prerenal secondary to cardiorenal syndrome. Creatinine was 2.23 on admission -Persistent atrial fibrillation/flutter on AC with Warfarin -Left bundle-branch block -Morbid obesity BMI 52.3 -Hyperlipidemia -Essential hypertension-history of -Acute on Chronic kidney disease stage III from nephrosclerosis at her baseline baseline creatinine 1.7 -Bilateral lower extremity venous insufficiency and chronic venous stasis -Troponin leak from chronic kidney disease, no evidence of acute coronary syndrome -Coumadin monitoring -Hypothyroid Plan: Patient will be continued on IV Lasix 80 mg every 8. Home medications to be continued. Follow lites closely. On IV antibiotic. nephrology and Cardiology on board. Care was discussed with the patient. Strict I's and O's..followup Cr Time with Patient: Greater than 30
[2019-11-07] MEDS: MIDODRINE 5 MG TAB PO SCH ×3 (06:19→17:31)
[2019-11-07] MEDS: LEVOTHYROXINE 88 MCG TAB PO SCH (06:19)
[2019-11-07 08:40] LABS: Potassium 3.9 mmol/L (3.5-5.1)
[2019-11-07] MEDS: POTASSIUM CHLORIDE ER 20 MEQ TAB.ER PO SCH (09:09)
[2019-11-07] MEDS: allopurinoL 100 MG TAB PO SCH (09:09)
[2019-11-07] MEDS: ASPIRIN 81 MG PO SCH (09:09)
[2019-11-07] MEDS: AZITHROMYCIN 500 MG TAB PO SCH (09:09)
[2019-11-07] MEDS: METOPROLOL TARTRATE 50 MG TAB PO SCH ×2 (09:09→21:31)
[2019-11-07] MEDS: FUROSEMIDE 10 MG/ML 10 ML VIAL IV SCH ×2 (09:16→21:31)
[2019-11-07 11:09] LABS: INR 1.8 (<1.2); Prothrombin Time 17.3 sec (9.0-12.0)
--- NOTE | 2019-11-07 11:10 | P.PN ---
Subjective Patient is seen in follow for acute kidney injury on chronic kidney disease. Renal function continues to improve. Maintained on IV Lasix 80 mg 3 times daily. Good urine output. Edema improving. Denies chest pain or shortness of breath. Feels better overall. No changes overnight. Vital signs are stable. General: The patient appeared well nourished and normally developed. HEENT: Head exam is unremarkable. Neck is without jugular venous distension. LUNGS: Breath sounds decreased. HEART: Rate and Rhythm are regular. ABDOMEN: Soft, nontender. Obese. EXTREMITITES: 1+ edema. Objective - Vital Signs Vital signs: Vital Signs Temp 98 F 11/07/19 08:00 Pulse 89 11/07/19 08:00 Resp 16 11/07/19 08:00 BP 100/80 11/07/19 08:00 Pulse Ox 95 11/07/19 08:00 Intake & Output 11/06/19 11/07/19 11/07/19 18:59 06:59 18:59 Intake Total 1291 236 Output Total 1400 900 Balance -109 -900 236 Weight 140 kg Intake: Oral 1291 236 Output: Urine 1400 900 - Labs CBC & Chem 7: 11/04/19 07:00 11/07/19 07:21 Labs: Abnormal Lab Results - Last 24 Hours (Table) 11/06/19 11/07/19 Range/Units 11:48 07:21 PT 17.1 H (9.0-12.0) sec INR 1.7 H (<1.2) BUN 34 H (9-20) mg/dL Microbiology - Last 24 Hours (Table) 11/02/19 01:49 Blood Culture - Preliminary Blood No Growth after 120 hours Assessment and Plan Plan: assessment: 1. acute kidney injury mostly prerenal secondary to cardiorenal syndrome. Creatinine was 2.23 on admission and is 1.13 today. 2. Acute on chronic systolic CHF with ejection fraction of 20-25%. 3. Volume overload. Improving with diuresis. 4. Metabolic acidosis secondary to acute kidney injury. Better. 5. Chronic A. fib maintained on Lopressor and anticoagulation. Plan: Decrease Lasix to 80 mg IV twice daily. Maintain potassium supplementation. Low-salt diet and 1500 mL fluid restriction. Continue to monitor renal function and urine output.
--- NOTE | 2019-11-07 11:54 | P.PN ---
Subjective Progress Note Date: 11/07/19 Principal diagnosis: Acute systolic heart failure Progress Note Date: 11/06/19 This is a pleasant 64-year-old gentleman who follows with Dr. Goodwin in the [facility]. He has a history of hypertension, hyperlipidemia, long-standing persistent atrial fibrillation, chronic kidney disease, left bundle branch block, nonischemic cardiomyopathy with known ejection fraction of 20-25%, and obesity. Presented to the emergency department with complaints of progressively worsening shortness of breath over 3 days as well as worsening lower extremity edema. Denies any fever, chills or significant coughing. He's had no chest discomfort, palpitations, PND or orthopnea. He denies any signs or symptoms of sleep apnea. He verbalizes compliance with fluid and dietary restrictions as well as medications but has not followed up in the office since January 2019 an d has been hospitalized twice since then. Chest x-ray on admission showed minimal infiltrate and atelectasis right lung base new compared to old exam, no heart failure seen, moderate cardiomegaly unchanged. EKG showed atrial fibrillation with left bundle branch block and PVCs the heart rate of 102. He did have an echocardiogram done in May of this year which showed severe global hypokinesis of the LV, severely impaired LV systolic function with ejection fraction between 20-25%, grade 2 diastolic dysfunction, severely enlarged RV, severely dilated LA, mild aortic regurgitation and mild mitral regurgitation with no evidence of pulmonary hypertension. Labs on admission showed white blood cell count 6.7, hemoglobin 15.5, platelet count 123, INR 2.1, sodium 134, BUN 49, creatinine 2.23, plasma lactic acid 4.2, troponin 0.083 and NT-proBNP of 26,800. He's been initiated on ceftriaxone 1 g IV piggyback daily, azithromycin 500 mg by mouth daily, Lasix 80 mg IV push every 8 hours. Repeat labs this morning showed a sodium 139, potassium 5.0, BUN 57, creatinine 1.91 and magnesium 2.6. Overall he is feeling a bit better today. His breathing has improved some and he feels his edema is a bit better. 11/04/2019 The patient was seen and examined today resting comfortably in bed. Labs today show potassium 3.7, BUN 46, creatinine 1.62. He remains on Lasix 80 mg IV push every 8 hours and is diuresing well. He's being followed by nephrology who placed the patient on a 1500 mL fluid restriction. He is down 3.2 kg since yesterday. He feels as edema is a bit better compared to yesterday continues to have some dyspnea on exertion that he feels has improved some. 11/05/2019 The patient was seen and examined this morning sitting up at the edge of the bed. He is overall feeling better. His breathing is stable. He feels as edema is improving. Labs show an improving renal function with a BUN of 40 and creatinine of 1.39. INR is 1.8 today. Vital signs are stable. He continues to be on Lasix 80 mg IV push every 8 hours. Nephrology is also following. 11/06/2019 The patient was seen and examined this morning resting comfortably in bed. He feels his breathing is stable. His edema has improved somewhat. His weight is down over 2 kg since yesterday. Renal function continues to improve with a BUN of 36 and creatinine 1.2. INR results are pending. He continues on Lasix 80 mg daily push every 8 hours. 11/07/2019 Patient states that overall he is feeling well. He was able to walk the halls without much difficulty. He is still on nasal cannula. His Lasix was decreased from 80 mg 3 times a day to 80 mg twice a day. He does admit that he has had poor follow-up in office. Does not recall any discussions of defibrillator in the past. He admits his lower extremity edema is somewhat improved. Denies any chest pain or pressure. His creatinine continues improved with less creatinine 1.13. Blood pressures remain borderline. His INR is 1.8 today. Objective - Vital Signs Vital signs: Vital Signs Temp 98 F 11/07/19 08:00 Pulse 89 11/07/19 08:00 Resp 16 11/07/19 08:00 BP 100/80 11/07/19 08:00 Pulse Ox 95 11/07/19 08:00 Intake & Output 11/06/19 11/07/19 11/07/19 18:59 06:59 18:59 Intake Total 1291 236 Output Total 1400 900 Balance -109 -900 236 Weight 140 kg Intake: Oral 1291 236 Output: Urine 1400 900 - Exam PHYSICAL EXAMINATION: HEENT: Head is atraumatic, normocephalic. Pupils equal, round. Neck is supple. There is no elevated jugular venous pressure. HEART EXAMINATION: Heart sounds irregularly irregular, S1 and S2 with a systolic murmur. CHEST EXAMINATION: Lungs reveal diminished air entry bilateral bases, no rhonchi, no wheezes, no Rales. No chest wall tenderness is noted on palpation or with deep breathing. ABDOMEN: Soft, obese, nontender. Bowel sounds are heard. No organomegaly noted. EXTREMITIES: 1+ peripheral pulses evidence of moderate peripheral edema with e rythema and weeping noted with continued improvement from previous and no calf tenderness noted. NEUROLOGIC patient is awake, alert and oriented x3. - Labs CBC & Chem 7: 11/04/19 07:00 11/07/19 07:21 Labs: Abnormal Lab Results - Last 24 Hours (Table) 11/06/19 11/07/19 11/07/19 Range/Units 11:48 07:21 10:20 PT 17.1 H 17.3 H (9.0-12.0) sec INR 1.7 H 1.8 H (<1.2) BUN 34 H (9-20) mg/dL Microbiology - Last 24 Hours (Table) 11/02/19 01:49 Blood Culture - Preliminary Blood No Growth after 120 hours Assessment and Plan Assessment: #1 acute on chronic systolic congestive heart failure #2 nonischemic cardiomyopathy with a known ejection fraction of 20-25% #3 long-standing persistent atrial fibrillation, anticoagulated on Coumadin #4 hypertension with episodes of hypotension, currently on midodrine #5 hyperlipidemia #6 obesity Plan: Agree with decreasing Lasix to 80 mg IV twice a day. Continue to monitor urine output. Patient's creatinine continues to improve. Patient's blood pressure is borderline however ideally would like to add low-dose NURIS inhibitor when creatinine stable and okay from nephrology standpoint. We will give Coumadin 10 mg tonight. Discussed need for long-term monitoring and follow-up in office. Patient has a left bundle-branch block with prolonged QRS and would be ideal candidate for AICD with biventricular pacing.
[2019-11-07 12:48] VITALS: BMI 46.9
[2019-11-07] MEDS ORDERED: WARFARIN 10 MG TAB PO ONE (18:00)
[2019-11-07] MEDS ORDERED: WARFARIN 7.5 MG TAB PO SCH (18:00)
[2019-11-08] MEDS: MIDODRINE 5 MG TAB PO SCH ×3 (06:55→18:21)
[2019-11-08] MEDS: LEVOTHYROXINE 88 MCG TAB PO SCH (06:55)
[2019-11-08 07:13] LABS: INR 1.6 (<1.2); Prothrombin Time 16.2 sec (9.0-12.0)
[2019-11-08 07:17] LABS: Calcium 9.1 mg/dL (8.4-10.2); Magnesium 2.3 mg/dL (1.6-2.3); Potassium 3.7 mmol/L (3.5-5.1)
[2019-11-08] MEDS: AZITHROMYCIN 500 MG TAB PO SCH (07:48)
[2019-11-08] MEDS: FUROSEMIDE 10 MG/ML 10 ML VIAL IV SCH ×2 (07:48→21:30)
[2019-11-08] MEDS: ASPIRIN 81 MG PO SCH (07:48)
[2019-11-08] MEDS: POTASSIUM CHLORIDE ER 20 MEQ TAB.ER PO SCH (07:48)
[2019-11-08] MEDS: METOPROLOL TARTRATE 50 MG TAB PO SCH ×2 (07:48→21:29)
[2019-11-08] MEDS: allopurinoL 100 MG TAB PO SCH (07:48)
--- NOTE | 2019-11-08 12:19 | P.PN ---
Subjective Progress Note Date: 11/08/19 Follow-up for acute kidney injury. Still has lower extremity swelling but improving. No nausea vomiting diarrhea. Urine output decreased in the last 24 hours. Objective - Vital Signs Vital signs: Vital Signs Temp 97.4 F L 11/08/19 11:32 Pulse 76 11/08/19 11:32 Resp 18 11/08/19 11:32 BP 91/58 11/08/19 11:32 Pulse Ox 94 L 11/08/19 11:32 Intake & Output 11/07/19 11/08/19 11/08/19 18:59 06:59 18:59 Intake Total 1424 554 Output Total 400 400 Balance 1024 -400 554 Weight 140 kg 139.8 kg Intake: Oral 1424 554 Output: Urine 400 400 Other: # Voids 1 - Exam No acute distress S1-S2 heard Decreased breath sounds Abdomen distended Edema - Labs CBC & Chem 7: 11/04/19 07:00 11/08/19 06:34 Labs: Abnormal Lab Results - Last 24 Hours (Table) 11/08/19 11/08/19 Range/Units 06:34 06:34 PT 16.2 H (9.0-12.0) sec INR 1.6 H (<1.2) Carbon Dioxide 31 H (22-30) mmol/L BUN 37 H (9-20) mg/dL Microbiology - Last 24 Hours (Table) 11/02/19 01:49 Blood Culture - Final Blood No Growth after 144 hours Assessment and Plan Assessment: #1 nonoliguric acute kidney injury secondary to cardiorenal syndrome type I. Peak creatinine of 2.23 MG per DL. #2 systolic CHF with EF of 20-25%. #3 volume overload #4 metabolic alkalosis with hypokalemia secondary to diuretics #5 chronic A. fib #6 low normal blood pressures on midodrine Plan: #1 renal function stable, check bladder scan to rule out urinary retention. #2 continue with Lasix 80 mg IV twice a day for now and changed to torsemide 40 mg by mouth daily at discharge. #3 avoid nephrotoxic agents and hypotensive episodes. #4 low salt diet and 1500 ML fluid restriction for now 1 at discharge. #5 maintain on KCl for now
[2019-11-08] MEDS ORDERED: POTASSIUM CHLORIDE ER 20 MEQ TAB.ER PO STA (12:33)
--- NOTE | 2019-11-08 12:34 | P.PN ---
Subjective Progress Note Date: 11/08/19 This is a pleasant 64-year-old gentleman who follows with Dr. Goodwin in the office. He has a history of hypertension, hyperlipidemia, long-standing persistent atrial fibrillation, chronic kidney disease, left bundle branch block, nonischemic cardiomyopathy with known ejection fraction of 20-25%, and obesity. Presented to the emergency department with complaints of progressively worsening shortness of breath over 3 days as well as worsening lower extremity edema. Denies any fever, chills or significant coughing. He's had no chest discomfort, palpitations, PND or orthopnea. He denies any signs or symptoms of sleep apnea. He verbalizes compliance with fluid and dietary restrictions as well as medications but has not followed up in the office since January 2019 and has been hospitalized twice since then. Chest x-ray on admission showed minimal infiltrate and atelectasis right lung base new compared to old exam, no heart failure seen, moderate cardiomegaly unchanged. EKG showed atrial fibr illation with left bundle branch block and PVCs the heart rate of 102. He did have an echocardiogram done in May of this year which showed severe global hypokinesis of the LV, severely impaired LV systolic function with ejection fraction between 20-25%, grade 2 diastolic dysfunction, severely enlarged RV, severely dilated LA, mild aortic regurgitation and mild mitral regurgitation with no evidence of pulmonary hypertension. Labs on admission showed white blood cell count 6.7, hemoglobin 15.5, platelet count 123, INR 2.1, sodium 134, BUN 49, creatinine 2.23, plasma lactic acid 4.2, troponin 0.083 and NT-proBNP of 26,800. He's been initiated on ceftriaxone 1 g IV piggyback daily, azithromycin 500 mg by mouth daily, Lasix 80 mg IV push every 8 hours. Repeat labs this morning showed a sodium 139, potassium 5.0, BUN 57, creatinine 1.91 and magnesium 2.6. Overall he is feeling a bit better today. His breathing has improved some and he feels his edema is a bit better. 11/04/2019 The patient was seen and examined today resting comfortably in bed. Labs today show potassium 3.7, BUN 46, creatinine 1.62. He remains on Lasix 80 mg IV push every 8 hours and is diuresing well. He's being followed by nephrology who placed the patient on a 1500 mL fluid restriction. He is down 3.2 kg since yesterday. He feels as edema is a bit better compared to yesterday continues to have some dyspnea on exertion that he feels has improved some. 11/05/2019 The patient was seen and examined this morning sitting up at the edge of the bed. He is overall feeling better. His breathing is stable. He feels as edema is improving. Labs show an improving renal function with a BUN of 40 and creati nine of 1.39. INR is 1.8 today. Vital signs are stable. He continues to be on Lasix 80 mg IV push every 8 hours. Nephrology is also following. 11/06/2019 The patient was seen and examined this morning resting comfortably in bed. He feels his breathing is stable. His edema has improved somewhat. His weight is down over 2 kg since yesterday. Renal function continues to improve with a BUN of 36 and creatinine 1.2. INR results are pending. He continues on Lasix 80 mg daily push every 8 hours. 11/08/2019 the patient was seen and examined resting comfortably in bed. He feels his breathing is stable. He continues to feel that his edema is improving. His weight is stable since yesterday. Renal function is relatively stable with a BUN 37 and creatinine 1.24. He's been on Lasix 80 mg IV push every 12 hours per nephrology. INR this morning was 1.6. Potassium was 3.7. He is having some bigeminal PVCs with couplets and triplets frequently on the monitor. Objective - Vital Signs Vital signs: Vital Signs Temp 97.4 F L 11/08/19 11:32 Pulse 76 11/08/19 11:32 Resp 18 11/08/19 11:32 BP 91/58 11/08/19 11:32 Pulse Ox 94 L 11/08/19 11:32 Intake & Output 11/07/19 11/08/19 11/08/19 18:59 06:59 18:59 Intake Total 1424 554 Output Total 400 400 Balance 1024 -400 554 Weight 140 kg 139.8 kg Intake: Oral 1424 554 Output: Urine 400 400 Other: # Voids 1 - Exam PHYSICAL EXAMINATION: HEENT: Head is atraumatic, normocephalic. Pupils equal, round. Neck is supple. There is no elevated jugular venous pressure. HEART EXAMINATION: Heart sounds irregularly irregular, S1 and S2 with a systolic murmur. CHEST EXAMINATION: Lungs reveal diminished air entry bilateral bases, no rhonchi, no wheezes, no Rales. No chest wall tenderness is noted on palpation or with deep breathing. ABDOMEN: Soft, obese, nontender. Bowel sounds are heard. No organomegaly noted. EXTREMITIES: 1+ peripheral pulses evidence of mild peripheral edema with erythema and weeping noted with improvement since yesterday and no calf tenderness noted. NEUROLOGIC patient is awake, alert and oriented x3. . - Labs CBC & Chem 7: 11/04/19 07:00 11/08/19 06:34 Labs: Abnormal Lab Results - Last 24 Hours (Table) 11/08/19 11/08/19 Range/Units 06:34 06:34 PT 16.2 H (9.0-12.0) sec INR 1.6 H (<1.2) Carbon Dioxide 31 H (22-30) mmol/L BUN 37 H (9-20) mg/dL Microbiology - Last 24 Hours (Table) 11/02/19 01:49 Blood Culture - Final Blood No Growth after 144 hours Assessment and Plan Assessment: #1 acute on chronic systolic congestive heart failure #2 nonischemic cardiomyopathy with a known ejection fraction of 20-25% #3 long-standing persistent atrial fibrillation, anticoagulated on Coumadin #4 hypertension with episodes of hypotension, currently on midodrine #5 hyperlipidemia #6 obesity Plan: From cardiology's perspective, continue Lasix per nephrology. Depending on the trend of the blood pressureand his renal function we may consider adding an NURIS inhibitor or an arm but if okay with nephrology. we will give extra potassium today. We will continue to monitor renal function, electrolytes, daily weight, and intake and outputs. Monitor INR and adjust Coumadin accordingly to keep INR between 2.0 and 3.0. We will continue to follow the patient for further recommendations accordingly. NATIONAL ACCOUNT MANAGER note has been reviewed, I agree with a documented findings and plan of care. Patient was seen and examined.
[2019-11-08] MEDS ORDERED: WARFARIN 10 MG TAB PO ONE (18:00)
[2019-11-09 06:06] LABS: INR 1.8 (<1.2); Prothrombin Time 17.6 sec (9.0-12.0)
[2019-11-09 06:20] LABS: Calcium 9.2 mg/dL (8.4-10.2); Potassium 4.2 mmol/L (3.5-5.1)
[2019-11-09] MEDS: MIDODRINE 5 MG TAB PO SCH ×3 (06:44→17:29)
[2019-11-09] MEDS: LEVOTHYROXINE 88 MCG TAB PO SCH (06:44)
[2019-11-09] MEDS: allopurinoL 100 MG TAB PO SCH (08:15)
[2019-11-09] MEDS: ASPIRIN 81 MG PO SCH (08:15)
[2019-11-09] MEDS: METOPROLOL TARTRATE 50 MG TAB PO SCH ×2 (08:16→22:38)
[2019-11-09] MEDS: AZITHROMYCIN 500 MG TAB PO SCH (08:16)
[2019-11-09] MEDS: POTASSIUM CHLORIDE ER 20 MEQ TAB.ER PO SCH (08:16)
[2019-11-09] MEDS: FUROSEMIDE 10 MG/ML 10 ML VIAL IV SCH ×2 (08:16→22:39)
--- NOTE | 2019-11-09 10:46 | P.PN ---
Subjective Progress Note Date: 11/09/19 Follow-up for acute kidney injury. Still has lower extremity swelling but improving. No nausea vomiting diarrhea. Urine output 1840 ML's in the last 24 hours. Objective - Vital Signs Vital signs: Vital Signs Temp 97.8 F 11/09/19 08:00 Pulse 68 11/09/19 08:00 Resp 16 11/09/19 08:00 BP 136/87 11/09/19 08:00 Pulse Ox 96 11/09/19 08:00 Intake & Output 11/08/19 11/09/19 11/09/19 18:59 06:59 18:59 Intake Total 754 480 100 Output Total 1050 790 300 Balance -296 -310 -200 Weight 140.2 kg Intake: Oral 754 480 100 Output: Urine 700 790 300 Post Void Residual 350 Other: Voiding Method Urinal Urinal # Voids 1 1 - Exam No acute distress S1-S2 heard Decreased breath sounds Abdomen distended Edema - Labs CBC & Chem 7: 11/04/19 07:00 11/09/19 05:38 Labs: Abnormal Lab Results - Last 24 Hours (Table) 11/09/19 11/09/19 Range/Units 05:38 05:38 PT 17.6 H (9.0-12.0) sec INR 1.8 H (<1.2) BUN 38 H (9-20) mg/dL Assessment and Plan Assessment: #1 nonoliguric acute kidney injury secondary to cardiorenal syndrome type I. Peak creatinine of 2.23 MG per DL. #2 systolic CHF with EF of 20-25%. #3 volume overload #4 metabolic alkalosis with hypokalemia secondary to diuretics #5 chronic A. fib #6 low normal blood pressures on midodrine Plan: #1 renal function stable, bladder scan no urinary retention. #2 continue with Lasix 80 mg IV twice a day for now and changed to torsemide 40 mg by mouth daily at discharge. #3 avoid nephrotoxic agents and hypotensive episodes. #4 low salt diet and 1500 ML fluid restriction for now 1 at discharge. #5 maintain on KCl for now
--- NOTE | 2019-11-09 12:56 | P.PN ---
Subjective Progress Note Date: 11/07/19 Principal diagnosis: Acute on chronic CHF with systolic dysfunction This is a 64-year-old patient of Dr. Hall. Chronic stable medical conditions include congestive heart failure EF 20-25%, atrial flutter fibrillation, left bundle-branch block, morbid obesity, hyperlipidemia, bilateral lower extremity venous insufficiency and chronic venous stasis, hypothyroid. Patient now presents with increasing shortness of breath for 3 days. Very little cough. No fever no chills. Increasing edema. Appetite is okay. A bit tired rundown. Checks x-ray shows questionable infiltrate. Started antibiotic. INVESTIGATIONS, reviewed in the clinical context: White count 6.7 hemoglobin 13.5 platelets 123 INR 2.1potassium 4.9 bun 49 creatinine 2.23 Troponin I 0.083, proBNP 26,800 EKG tracing personally reviewed by me-atrial fibrillation with a left bundle- branch block back 11/03/2019 Patient is currently lying in the bed comfortably. Leg swelling is improving. Patient is being continued on Lasix 40 mg every 8 hourly. Cardiology and nephrology has seen the patient. Creatinine level is 1.91 today. Lactic acidosis improved. Patient is being continued on antibiotics in the form of ceftriaxone and azithromycin. Afebrile. Blood pressure is on the lower side today. With SBP 107/52 Denied any complaints of chest pain or worsening shortness of breath. Tolerating oral diet. Monitor CBC and BMP tomorrow. 11/04/2019 Patient is currently sitting on the side of the bed. No complaints of chest pain or shortness of breath. Bilateral lower extremity swelling is improving. Currently on IV Lasix 80 mg 3 times daily. Renal function continues to improve. No fever no chills. Cardiology and nephrology is following. 11/05/2019 Patient is currently denied any complaints of chest pain or shortness of breath. Bilateral lower extremity swelling is improving. Currently maintained Lasix 80 mg 3 times daily. BUN 40 and creatinine improved to 1.39. INR is 1.8. Nephrology and cardiology on board. 11/06/2019 Patient is currently sitting on side of the bed comfortably. Still having bilateral lower extremity significant swelling but improving very slowly. Wilfredo watkins on IV Lasix 80 mg 3 times daily. No complaints of chest pain or shortness of breath. No fever no chills. Laboratory data showed INR 1.7 BUN 36 and creatinine 1.2 and potassium 3.8 11/07/2019 Patient is currently sitting on side of the bed comfortably. No shortness of breath or chest pain. Leg swelling is still significant and is being continued on IV Lasix 80 mg 3 times daily. No fever no chills. No leg pain. No nausea vomiting or abdominal pain or diarrhea. Patient is being continued on Coumadin dosing. Laboratory data showed BUN 34 and creatinine 1.13 Current medications reviewed. Objective - Vital Signs Vital signs: Vital Signs Temp 97.5 F L 11/07/19 20:00 Pulse 86 11/07/19 20:00 Resp 16 11/07/19 20:00 BP 133/80 11/07/19 20:00 Pulse Ox 97 11/07/19 20:00 Intake & Output 11/07/19 11/07/19 11/08/19 06:59 18:59 06:59 Intake Total 1424 Output Total 900 400 Balance -900 1024 Weight 140 kg 140 kg Intake: Oral 1424 Output: Urine 900 400 - Exam PHYSICAL EXAMINATION: Patient is lying in the bed comfortably, no acute distress, awake alert and oriented.. HEENT: Normocephalic. Neck is supple. Pupils reactive. Nostrils clear. Oral cavity is moist. Ears reveal no drainage. Neck reveals no JVD, carotid bruits, or thyromegaly. CHEST EXAMINATION: Trachea is central. Symmetrical expansion. Lung pittman clear to auscultation and percussion. CARDIAC: Normal S1, S2 with no gallops. No murmurs. irregularly irregular rhythm ABDOMEN: Soft. Bowel sounds normal/ Nontender. . No organomegaly. No abdominal bruits. Extremities: 3+ pedal b/l edema. No clubbing or cyanosis Neurologically awake, alert, oriented x3 with well-coordinated movements. No focal deficits noted Skin: No rash or skin lesions. Psychiatric: Coperative. Nonsuicidal Musculoskeletal: No joint swelling or deformity. Normal range of motion. - Labs CBC & Chem 7: 11/04/19 07:00 11/09/19 05:38 Labs: Abnormal Lab Results - Last 24 Hours (Table) 11/07/19 11/07/19 Range/Units 07:21 10:20 PT 17.3 H (9.0-12.0) sec INR 1.8 H (<1.2) BUN 34 H (9-20) mg/dL Microbiology - Last 24 Hours (Table) 11/02/19 01:49 Blood Culture - Preliminary Blood No Growth after 120 hours Assessment and Plan Assessment: -Acute on chronic congestive heart failure exacerbation from diastolic and systolic dysfunction EF 20-25%, POA -Possible right-sided pneumonia, suspect gram-negative organism, POA - acute kidney injury mostly prerenal secondary to cardiorenal syndrome. Creatinine was 2.23 on admission -Persistent atrial fibrillation/flutter on AC with Warfarin -Left bundle-branch block -Morbid obesity BMI 52.3 -Hyperlipidemia -Essential hypertension-history of -Acute on Chronic kidney disease stage III from nephrosclerosis at her baseline baseline creatinine 1.7 -Bilateral lower extremity venous insufficiency and chronic venous stasis -Troponin leak from chronic kidney disease, no evidence of acute coronary syndrome -Coumadin monitoring -Hypothyroid Plan: Patient will be continued on IV Lasix 80 mg every 8. Home medications to be continued. Follow lites closely. Patient completed antibiotic course for possible pneumonia. nephrology and Cardiology on board. Care was discussed with the patient. Strict I's and O's..followup Cr Time with Patient: Greater than 30
--- NOTE | 2019-11-09 13:05 | P.PN ---
Subjective Progress Note Date: 11/08/19 Principal diagnosis: Acute on chronic CHF with systolic dysfunction This is a 64-year-old patient of Dr. Hall. Chronic stable medical conditions include congestive heart failure EF 20-25%, atrial flutter fibrillation, left bundle-branch block, morbid obesity, hyperlipidemia, bilateral lower extremity venous insufficiency and chronic venous stasis, hypothyroid. Patient now presents with increasing shortness of breath for 3 days. Very little cough. No fever no chills. Increasing edema. Appetite is okay. A bit tired rundown. Checks x-ray shows questionable infiltrate. Started antibiotic. INVESTIGATIONS, reviewed in the clinical context: White count 6.7 hemoglobin 13.5 platelets 123 INR 2.1potassium 4.9 bun 49 creatinine 2.23 Troponin I 0.083, proBNP 26,800 EKG tracing personally reviewed by me-atrial fibrillation with a left bundle- branch block back 11/03/2019 Patient is currently lying in the bed comfortably. Leg swelling is improving. Patient is being continued on Lasix 40 mg every 8 hourly. Cardiology and nephrology has seen the patient. Creatinine level is 1.91 today. Lactic acidosis improved. Patient is being continued on antibiotics in the form of ceftriaxone and azithromycin. Afebrile. Blood pressure is on the lower side today. With SBP 107/52 Denied any complaints of chest pain or worsening shortness of breath. Tolerating oral diet. Monitor CBC and BMP tomorrow. 11/04/2019 Patient is currently sitting on the side of the bed. No complaints of chest pain or shortness of breath. Bilateral lower extremity swelling is improving. Currently on IV Lasix 80 mg 3 times daily. Renal function continues to improve. No fever no chills. Cardiology and nephrology is following. 11/05/2019 Patient is currently denied any complaints of chest pain or shortness of breath. Bilateral lower extremity swelling is improving. Currently maintained Lasix 80 mg 3 times daily. BUN 40 and creatinine improved to 1.39. INR is 1.8. Nephrology and cardiology on board. 11/06/2019 Patient is currently sitting on side of the bed comfortably. Still having bilateral lower extremity significant swelling but improving very slowly. Currently on IV Lasix 80 mg 3 times daily. No complaints of chest pain or shortness of breath. No fever no chills. Laboratory data showed INR 1.7 BUN 36 and creatinine 1.2 and potassium 3.8 11/07/2019 Patient is currently sitting on side of the bed comfortably. No shortness of breath or chest pain. Leg swelling is still significant and is being continued on IV Lasix 80 mg 3 times daily. No fever no chills. No leg pain. No nausea vomiting or abdominal pain or diarrhea. Patient is being continued on Coumadin dosing. Laboratory data showed BUN 34 and creatinine 1.13 11/08/2019 Patient currently resting on the bed comfortably. Still having significant leg swelling. Denied any shortness of breath or chest pain. Currently on IV Lasix 3 times daily. BUN 37 and creatinine 1.24. INR is 1.6 today. Coumadin dosing will be continued. Cardiology is following. No other acute overnight issues. Current medications reviewed. Objective - Vital Signs Vital signs: Vital Signs Temp 97.6 F 11/08/19 15:38 Pulse 88 11/08/19 15:38 Resp 18 11/08/19 15:38 BP 122/87 11/08/19 15:38 Pulse Ox 98 11/08/19 15:38 Intake & Output 11/08/19 11/08/19 11/09/19 06:59 18:59 06:59 Intake Total 754 Output Total 400 1050 Balance -400 -296 Weight 139.8 kg Intake: Oral 754 Output: Urine 400 700 Post Void Residual 350 Other: # Voids 1 - Exam PHYSICAL EXAMINATION: Patient is lying in the bed comfortably, no acute distress, awake alert and oriented.. HEENT: Normocephalic. Neck is supple. Pupils reactive. Nostrils clear. Oral cavity is moist. Ears reveal no drainage. Neck reveals no JVD, carotid bruits, or thyromegaly. CHEST EXAMINATION: Trachea is central. Symmetrical expansion. Lung pittman clear to auscultation and percussion. CARDIAC: Normal S1, S2 with no gallops. No murmurs. irregularly irregular rhythm ABDOMEN: Soft. Bowel sounds normal/ Nontender. . No organomegaly. No abdominal bruits. Extremities: 3+ pedal b/l edema. No clubbing or cyanosis Neurologically awake, alert, oriented x3 with well-coordinated movements. No focal deficits noted Skin: No rash or skin lesions. Psychiatric: Coperative. Nonsuicidal Musculoskeletal: No joint swelling or deformity. Normal range of motion. - Labs CBC & Chem 7: 11/04/19 07:00 11/09/19 05:38 Labs: Abnormal Lab Results - Last 24 Hours (Table) 11/08/19 11/08/19 Range/Units 06:34 06:34 PT 16.2 H (9.0-12.0) sec INR 1.6 H (<1.2) Carbon Dioxide 31 H (22-30) mmol/L BUN 37 H (9-20) mg/dL Microbiology - Last 24 Hours (Table) 11/02/19 01:49 Blood Culture - Final Blood No Growth after 144 hours Assessment and Plan Assessment: -Acute on chronic congestive heart failure exacerbation from diastolic and systolic dysfunction EF 20-25%, POA -Possible right-sided pneumonia, suspect gram-negative organism, POA - acute kidney injury mostly prerenal secondary to cardiorenal syndrome. Creat inine was 2.23 on admission -Persistent atrial fibrillation/flutter on AC with Warfarin -Left bundle-branch block -Morbid obesity BMI 52.3 -Hyperlipidemia -Essential hypertension-history of -Acute on Chronic kidney disease stage III from nephrosclerosis at her baseline baseline creatinine 1.7 -Bilateral lower extremity venous insufficiency and chronic venous stasis -Troponin leak from chronic kidney disease, no evidence of acute coronary syndrome -Coumadin monitoring -Hypothyroid Plan: Patient will be continued on IV Lasix 80 mg every 8. Home medications to be continued. Follow lites closely. Patient completed antibiotic course for possible pneumonia. nephrology and Cardiology on board. Care was discussed with the patient. Strict I's and O's..followup Cr Time with Patient: Greater than 30
--- NOTE | 2019-11-09 16:08 | PN ---
PROGRESS NOTE Mr. López is a 64-year-old male with known history of hypertension, hyperlipidemia, long-standing persistent atrial fibrillation, severe nonischemic cardiomyopathy with a left bundle branch block. He is feeling better today. He presented with symptoms of worsening congestive heart failure. His symptoms are better. He is lying supine. He is denying any chest pain. He denies any dizziness or palpitation. He denies any nausea. He continues to be on the IV Lasix in the form of 80 mg IV q.12 hours. He is on metoprolol tartrate 50 mg twice a day, Coumadin, midodrine. PHYSICAL EXAMINATION: Blood pressure running in the low 100s and 90s with a heart rate in the 60s and 70s. Lungs: No wheezes. Heart irregularly irregular, S1, S2. No S3 with a systolic murmur. ABDOMEN: Soft, obese, nontender. EXTREMITIES 2+ edema. IMPRESSION: 1. Congestive heart failure with severe systolic dysfunction, nonischemic cardiomyopathy. 2. Chronic persistent atrial fibrillation. 3. History of chronic kidney disease. 4. Obesity. RECOMMENDATIONS: We will continue intravenous diuretic for 24 hours. If he is stable, I would expect he should be able to be discharged home tomorrow and follow up with Dr. Goodwin as an outpatient to be re-evaluated regarding the possible ICD Bi V implantation. We will follow his renal function and blood pressure and see if he is a candidate for the addition of an NURIS inhibitor or an ARB or Entresto. MMODL / IJN: [id number] /
[2019-11-09] MEDS ORDERED: WARFARIN 7.5 MG TAB PO ONE (18:00)
[2019-11-09] MEDS ORDERED: WARFARIN 5 MG TAB PO SCH (18:00)
[2019-11-09] MEDS ORDERED: WARFARIN 5 MG TAB PO ONE (18:00)
--- NOTE | 2019-11-09 23:50 | P.PN ---
Subjective Progress Note Date: 11/09/19 Principal diagnosis: Acute on chronic CHF with systolic dysfunction This is a 64-year-old patient of Dr. Hall. Chronic stable medical conditions include congestive heart failure EF 20-25%, atrial flutter fibrillation, left bundle-branch block, morbid obesity, hyperlipidemia, bilateral lower extremity venous insufficiency and chronic venous stasis, hypothyroid. Patient now presents with increasing shortness of breath for 3 days. Very little cough. No fever no chills. Increasing edema. Appetite is okay. A bit tired rundown. Checks x-ray shows questionable infiltrate. Started antibiotic. INVESTIGATIONS, reviewed in the clinical context: White count 6.7 hemoglobin 13.5 platelets 123 INR 2.1potassium 4.9 bun 49 creatinine 2.23 Troponin I 0.083, proBNP 26,800 EKG tracing personally reviewed by me-atrial fibrillation with a left bundle- branch block back 11/03/2019 Patient is currently lying in the bed comfortably. Leg swelling is improving. Patient is being continued on Lasix 40 mg every 8 hourly. Cardiology and nephrology has seen the patient. Creatinine level is 1.91 today. Lactic acidosis improved. Patient is being continued on antibiotics in the form of ceftriaxone and azithromycin. Afebrile. Blood pressure is on the lower side today. With SBP 107/52 Denied any complaints of chest pain or worsening shortness of breath. Tolerating oral diet. Monitor CBC and BMP tomorrow. 11/04/2019 Patient is currently sitting on the side of the bed. No complaints of chest pain or shortness of breath. Bilateral lower extremity swelling is improving. Currently on IV Lasix 80 mg 3 times daily. Renal function continues to improve. No fever no chills. Cardiology and nephrology is following. 11/05/2019 Patient is currently denied any complaints of chest pain or shortness of breath. Bilateral lower extremity swelling is improving. Currently maintained Lasix 80 mg 3 times daily. BUN 40 and creatinine improved to 1.39. INR is 1.8. Nephrology and cardiology on board. 11/06/2019 Patient is currently sitting on side of the bed comfortably. Still having bilateral lower extremity significant swelling but improving very slowly. Currently on IV Lasix 80 mg 3 times daily. No complaints of chest pain or shortness of breath. No fever no chills. Laboratory data showed INR 1.7 BUN 36 and creatinine 1.2 and potassium 3.8 11/07/2019 Patient is currently sitting on side of the bed comfortably. No shortness of breath or chest pain. Leg swelling is still significant and is being continued on IV Lasix 80 mg 3 times daily. No fever no chills. No leg pain. No nausea vomiting or abdominal pain or diarrhea. Patient is being continued on Coumadin dosing. Laboratory data showed BUN 34 and creatinine 1.13 11/08/2019 Patient currently resting on the bed comfortably. Still having significant leg swelling. Denied any shortness of breath or chest pain. Currently on IV Lasix 3 times daily. BUN 37 and creatinine 1.24. INR is 1.6 today. Coumadin dosing will be continued. Cardiology is following. No other acute overnight issues. 11/09/19 Patient is currently lying in the bed comfortably. Awake alert oriented x3. Still having significant leg swelling but improving very slowly. Patient is being continued on IV Lasix 80 mg 3 times daily. Cardiology and nephrology is on board. Laboratory data showed BUN 38 and creatinine 1.24 INR level is 1.8 Anticipate discharge to rehab when stable. Current medications reviewed. Objective - Vital Signs Vital signs: Vital Signs Temp 97.5 F L 11/09/19 15:17 Pulse 83 11/09/19 15:17 Resp 16 11/09/19 15:17 BP 116/73 11/09/19 15:17 Pulse Ox 91 L 11/09/19 15:17 Intake & Output 11/08/19 11/09/19 11/09/19 18:59 06:59 18:59 Intake Total 754 480 300 Output Total 9128 442 7312 Balance -296 -310 -800 Weight 140.2 kg Intake: Oral 754 480 300 Output: Urine 570 376 4705 Post Void Residual 350 Other: Voiding Method Urinal Urinal # Voids 1 4 - Exam PHYSICAL EXAMINATION: Patient is lying in the bed comfortably, no acute distress, awake alert and oriented.. HEENT: Normocephalic. Neck is supple. Pupils reactive. Nostrils clear. Oral cavity is moist. Ears reveal no drainage. Neck reveals no JVD, carotid bruits, or thyromegaly. CHEST EXAMINATION: Trachea is central. Symmetrical expansion. Lung pittman clear to auscultation and percussion. CARDIAC: Normal S1, S2 with no gallops. No murmurs. irregularly irregular rhythm ABDOMEN: Soft. Bowel sounds normal/ Nontender. . No organomegaly. No abdominal bruits. Extremities: 3+ pedal b/l edema. No clubbing or cyanosis Neurologically awake, alert, oriented x3 with well-coordinated movements. No focal deficits noted Skin: No rash or skin lesions. Psychiatric: Coperative. Nonsuicidal Musculoskeletal: No joint swelling or deformity. Normal range of motion. - Labs CBC & Chem 7: 11/04/19 07:00 11/09/19 05:38 Labs: Abnormal Lab Results - Last 24 Hours (Table) 11/09/19 11/09/19 Range/Units 05:38 05:38 PT 17.6 H (9.0-12.0) sec INR 1.8 H (<1.2) BUN 38 H (9-20) mg/dL Assessment and Plan Assessment: -Acute on chronic congestive heart failure exacerbation from diastolic and systolic dysfunction EF 20-25%, POA -Possible right-sided pneumonia, suspect gram-negative organism, POA - acute kidney injury mostly prerenal secondary to cardiorenal syndrome. Creatinine was 2.23 on admission -Persistent atrial fibrillation/flutter on AC with Warfarin -Left bundle-branch block -Morbid obesity BMI 52.3 -Hyperlipidemia -Essential hypertension-history of -Acute on Chronic kidney disease stage III from nephrosclerosis at her baseline baseline creatinine 1.7 -Bilateral lower extremity venous insufficiency and chronic venous stasis -Troponin leak from chronic kidney disease, no evidence of acute coronary syndrome -Coumadin monitoring -Hypothyroid Plan: Patient will be continued on IV Lasix 80 mg every 8. Home medications to be continued. Follow lites closely. Patient completed antibiotic course for possible pneumonia. nephrology and Cardiology on board. Care was discussed with the patient. Strict I's and O's..followup Cr Time with Patient: Greater than 30
[2019-11-10 04:29] VITALS: RESP 16
[2019-11-10] MEDS: MIDODRINE 5 MG TAB PO SCH (06:36)
[2019-11-10] MEDS: LEVOTHYROXINE 88 MCG TAB PO SCH (06:36)
[2019-11-10 06:50] LABS: INR 1.9 (<1.2)
[2019-11-10 06:52] LABS: Basophils # (A) 0.1 k/uL (0-0.2); Basophils % (A) 1 %; Eosinophils # (A) 0.2 k/uL (0-0.7); Eosinophils % (A) 4 %; HCT 47.8 % (39.0-53.0); HGB 14.3 gm/dL (13.0-17.5); Hypochromasia Moderate; Lymphocytes # (A) 1.1 k/uL (1.0-4.8); Lymphocytes % (A) 19 %; MCH 29.9 pg (25.0-35.0); MCV 99.5 fL (80.0-100.0); Macrocytosis Slight; Mean Platelet Volume 14.6; Monocytes # (A) 0.5 k/uL (0-1.0); Monocytes % (A) 8 %; Neutrophils % (A) 67 %; Platelet Count 102 k/uL (150-450); RBC 4.81 m/uL (4.30-5.90); RDW 15.7 % (11.5-15.5); WBC 6.1 k/uL (3.8-10.6)
[2019-11-10 07:02] LABS: Calcium 8.9 mg/dL (8.4-10.2); Potassium 3.8 mmol/L (3.5-5.1)
--- NOTE | 2019-11-10 07:49 | P.PN ---
Subjective Progress Note Date: 11/10/19 This is a pleasant 64-year-old gentleman who follows with Dr. Goodwin in the office. He has a history of hypertension, hyperlipidemia, long-standing persistent atrial fibrillation, chronic kidney disease, left bundle branch block, nonischemic cardiomyopathy with known ejection fraction of 20-25%, and obesity. Presented to the emergency department with complaints of progressively worsening shortness of breath over 3 days as well as worsening lower extremity edema. Denies any fever, chills or significant coughing. He's had no chest discomfort, palpitations, PND or orthopnea. He denies any signs or symptoms of sleep apnea. He verbalizes compliance with fluid and dietary restrictions as well as medications but has not followed up in the office since January 2019 and has been hospitalized twice since then. Chest x-ray on admission showed minimal infiltrate and atelectasis right lung base new compared to old exam, no heart failure seen, moderate cardiomegaly unchanged. EKG showed atrial fibr illation with left bundle branch block and PVCs the heart rate of 102. He did have an echocardiogram done in May of this year which showed severe global hypokinesis of the LV, severely impaired LV systolic function with ejection fraction between 20-25%, grade 2 diastolic dysfunction, severely enlarged RV, severely dilated LA, mild aortic regurgitation and mild mitral regurgitation with no evidence of pulmonary hypertension. Labs on admission showed white blood cell count 6.7, hemoglobin 15.5, platelet count 123, INR 2.1, sodium 134, BUN 49, creatinine 2.23, plasma lactic acid 4.2, troponin 0.083 and NT-proBNP of 26,800. He's been initiated on ceftriaxone 1 g IV piggyback daily, azithromycin 500 mg by mouth daily, Lasix 80 mg IV push every 8 hours. Repeat labs this morning showed a sodium 139, potassium 5.0, BUN 57, creatinine 1.91 and magnesium 2.6. Overall he is feeling a bit better today. His breathing has improved some and he feels his edema is a bit better. 11/04/2019 The patient was seen and examined today resting comfortably in bed. Labs today show potassium 3.7, BUN 46, creatinine 1.62. He remains on Lasix 80 mg IV push every 8 hours and is diuresing well. He's being followed by nephrology who placed the patient on a 1500 mL fluid restriction. He is down 3.2 kg since yesterday. He feels as edema is a bit better compared to yesterday continues to have some dyspnea on exertion that he feels has improved some. 11/05/2019 The patient was seen and examined this morning sitting up at the edge of the bed. He is overall feeling better. His breathing is stable. He feels as edema is improving. Labs show an improving renal function with a BUN of 40 and creati nine of 1.39. INR is 1.8 today. Vital signs are stable. He continues to be on Lasix 80 mg IV push every 8 hours. Nephrology is also following. 11/06/2019 The patient was seen and examined this morning resting comfortably in bed. He feels his breathing is stable. His edema has improved somewhat. His weight is down over 2 kg since yesterday. Renal function continues to improve with a BUN of 36 and creatinine 1.2. INR results are pending. He continues on Lasix 80 mg daily push every 8 hours. 11/08/2019 the patient was seen and examined resting comfortably in bed. He feels his breathing is stable. He continues to feel that his edema is improving. His weight is stable since yesterday. Renal function is relatively stable with a BUN 37 and creatinine 1.24. He's been on Lasix 80 mg IV push every 12 hours per nephrology. INR this morning was 1.6. Potassium was 3.7. He is having some bigeminal PVCs with couplets and triplets frequently on the monitor. 11/10/2019 The patient was Seen and examined this morning sitting up at the edge of the bed. Overall his symptoms have improved. His edema is improving. He continues on Lasix IV 80 mg every 12 hours. He is on metoprolol tartrate 50 mg by mouth twice a day, Coumadin and midodrine. INR this morning was 1.9. Renal function is stable with a BUN of 36 and creatinine 1.25. He's had a documented weight loss in the EHR. Objective - Vital Signs Vital signs: Vital Signs Temp 97.5 F L 11/10/19 04:00 Pulse 75 11/10/19 04:00 Resp 16 11/10/19 04:00 BP 104/53 11/10/19 04:00 Pulse Ox 98 11/10/19 04:00 Intake & Output 11/09/19 11/10/19 11/10/19 18:59 06:59 18:59 Intake Total 400 Output Total 1300 940 Balance -900 -940 Weight 138.6 kg Intake: Oral 400 Output: Urine 1300 940 Other: Voiding Method Urinal Urinal # Voids 4 1 - Exam PHYSICAL EXAMINATION: HEENT: Head is atraumatic, normocephalic. Pupils equal, round. Neck is supple. There is no elevated jugular venous pressure. HEART EXAMINATION: Heart sounds irregularly irregular, S1 and S2 with a systolic murmur. CHEST EXAMINATION: Lungs reveal diminished air entry bilateral bases, no rhonchi, no wheezes, no Rales. No chest wall tenderness is noted on palpation or with deep breathing. ABDOMEN: Soft, obese, nontender. Bowel sounds are heard. No organomegaly noted. EXTREMITIES: 1+ peripheral pulses evidence of mild peripheral edema with erythema and weeping noted with improvement since yesterday and no calf tenderness noted. NEUROLOGIC patient is awake, alert and oriented x3. - Labs CBC & Chem 7: 11/10/19 05:43 11/10/19 05:43 Labs: Abnormal Lab Results - Last 24 Hours (Table) 11/10/19 11/10/19 11/10/19 Range/Units 05:43 05:43 05:43 MCHC 30.0 L (31.0-37.0) g/dL RDW 15.7 H (11.5-15.5) % Plt Count 102 L (150-450) k/uL PT 19.0 H (9.0-12.0) sec INR 1.9 H (<1.2) BUN 36 H (9-20) mg/dL Assessment and Plan Assessment: #1 acute on chronic systolic congestive heart failure #2 nonischemic cardiomyopathy with a known ejection fraction of 20-25% #3 long-standing persistent atrial fibrillation, anticoagulated on Coumadin #4 hypertension with episodes of hypotension, currently on midodrine #5 hyperlipidemia #6 obesity Plan: From cardiology's perspective, we anticipate the patient will be discharged home today on oral diuretics. He will follow-up in the office with Dr. Goodwin as an outpatient to be reevaluated regarding the possibility of a biventricular ICD implantation. We will follow his renal function and blood pressure and see if he is a candidate for an NURIS inhibitor, ARB, or Entresto. RAMP FLIGHT ATTENDANT note has been reviewed, I agree with a documented findings and plan of care. Patient was seen and examined.
[2019-11-10 08:00] VITALS: BP 110/70; PULSE 76; TEMP 98.4
[2019-11-10] MEDS: FUROSEMIDE 10 MG/ML 10 ML VIAL IV SCH (08:01)
[2019-11-10] MEDS: POTASSIUM CHLORIDE ER 20 MEQ TAB.ER PO SCH (08:01)
[2019-11-10] MEDS: allopurinoL 100 MG TAB PO SCH (08:01)
[2019-11-10] MEDS: ASPIRIN 81 MG PO SCH (08:01)
[2019-11-10] MEDS: METOPROLOL TARTRATE 50 MG TAB PO SCH (08:01)
--- NOTE | 2019-11-10 12:19 | P.DS ---
Providers Date of admission: 11/02/19 02:27 Attending physician: Carter Marte Consults: 11/02/19 14:53 Consult Physician Routine Consulting Provider: Pablo Vidales Consult Reason/Comments: chf Do you want consulting provider notified?: Yes 11/02/19 14:54 Consult Physician Routine Consulting Provider: Kana Miller Consult Reason/Comments: renal failure Do you want consulting provider notified?: Yes Primary care physician: Sherman Hall Hospital Course: Acute on chronic CHF with systolic dysfunction This is a 64-year-old patient of Dr. Hall. Chronic stable medical conditions include congestive heart failure EF 20-25%, atrial flutter fibrillation, left bundle-branch block, morbid obesity, hyperlipidemia, bilateral lower extremity venous insufficiency and chronic venous stasis, hypothyroid. Patient now presents with increasing shortness of breath for 3 days. Very little cough. No fever no chills. Increasing edema. Appetite is okay. A bit tired rundown. Checks x-ray shows questionable infiltrate. Started antibiotic. INVESTIGATIONS, reviewed in the clinical context: White count 6.7 hemoglobin 13.5 platelets 123 INR 2.1potassium 4.9 bun 49 creatinine 2.23 Troponin I 0.083, proBNP 26,800 EKG tracing personally reviewed by me-atrial fibrillation with a left bundle- branch block back 11/03/2019 Patient is currently lying in the bed comfortably. Leg swelling is improving. Patient is being continued on Lasix 40 mg every 8 hourly. Cardiology and nephrology has seen the patient. Creatinine level is 1.91 today. Lactic acidosis improved. Patient is being continued on antibiotics in the form of ceftriaxone and azithromycin. Afebrile. Blood pressure is on the lower side today. With SBP 107/52 Denied any complaints of chest pain or worsening shortness of breath. T olerating oral diet. Monitor CBC and BMP tomorrow. 11/04/2019 Patient is currently sitting on the side of the bed. No complaints of chest pain or shortness of breath. Bilateral lower extremity swelling is improving. Currently on IV Lasix 80 mg 3 times daily. Renal function continues to improve. No fever no chills. Cardiology and nephrology is following. 11/05/2019 Patient is currently denied any complaints of chest pain or shortness of breath. Bilateral lower extremity swelling is improving. Currently maintained Lasix 80 mg 3 times daily. BUN 40 and creatinine improved to 1.39. INR is 1.8. Nephrology and cardiology on board. 11/06/2019 Patient is currently sitting on side of the bed comfortably. Still having bilateral lower extremity significant swelling but improving very slowly. Currently on IV Lasix 80 mg 3 times daily. No complaints of chest pain or shortness of breath. No fever no chills. Laboratory data showed INR 1.7 BUN 36 and creatinine 1.2 and potassium 3.8 11/07/2019 Patient is currently sitting on side of the bed comfortably. No shortness of breath or chest pain. Leg swelling is still significant and is being continued on IV Lasix 80 mg 3 times daily. No fever no chills. No leg pain. No nausea vomiting or abdominal pain or diarrhea. Patient is being continued on Coumadin dosing. Laboratory data showed BUN 34 and creatinine 1.13 11/08/2019 Patient currently resting on the bed comfortably. Still having significant leg swelling. Denied any shortness of breath or chest pain. Currently on IV Lasix 3 times daily. BUN 37 and creatinine 1.24. INR is 1.6 today. Coumadin dosing will be continued. Cardiology is following. No other acute overnight issues. 11/09/19 Patient is currently lying in the bed comfortably. Awake alert oriented x3. Still having significant leg swelling but improving very slowly. Patient is being continued on IV Lasix 80 mg 3 times daily. Cardiology and nephrology is on board. Laboratory data showed BUN 38 and creatinine 1.24 INR level is 1.8 Anticipate discharge to rehab when stable. 11/10/2019 Patient is able at this time no overnight events patient will be discharged todaypatient appears to have been taking 40 mg oral twice a day as per the last discharge. Patient was discharged on 60 mg twice a day of Lasix patient will continued on Aldactone continue with potassium supplementation and patient was discharged on low-dose of lisinopril follow-up with PCP. Repeat basic metabolic profile will be ordered PHYSICAL EXAMINATION: GENERAL: The patient is alert and oriented x3, not in any acute distress. Well developed, well nourished. HEENT: Pupils are round and equally reacting to light. EOMI. No scleral icterus. No conjunctival pallor. Normocephalic, atraumatic. No pharyngeal erythema. No thyromegaly. CARDIOVASCULAR: S1 and S2 present. No murmurs, rubs, or gallops. PULMONARY: Chest is clear to auscultation, no wheezing or crackles. ABDOMEN: Soft, nontender, nondistended, normoactive bowel sounds. No palpable organomegaly. MUSCULOSKELETAL: No joint swelling or deformity. EXTREMITIES: No cyanosis, clubbing, or pedal edema with some chronic venous stasis NEUROLOGICAL: Gross neurological examination did not reveal any focal deficits. SKIN: No rashes. Assessment and Plan Assessment: -Acute on chronic congestive heart failure exacerbation from diastolic and systolic dysfunction EF 20-25%, POA -Possible right-sided pneumonia, suspect gram-negative organism, POA - acute kidney injury mostly prerenal secondary to congestive heart failure improved now presently 1.25 -Persistent atrial fibrillation/flutter on AC with Warfarin -Left bundle-branch block -Morbid obesity BMI 52.3 -Hyperlipidemia -Essential hypertension-history of -Acute on Chronic kidney disease stage III from nephrosclerosis . -Bilateral lower extremity venous insufficiency and chronic venous stasis -Troponin leak from chronic kidney disease, no evidence of acute coronary syndrome -Coumadin monitoring -Hypothyroid Patient Condition at Discharge: Fair Plan - Discharge Summary Discharge Rx Participant: No New Discharge Prescriptions: New Lisinopril [Prinivil] 2.5 mg PO DAILY #30 tab Furosemide [Lasix] 60 mg PO BID #60 tab Continue Spironolactone [Aldactone] 25 mg PO DAILY #30 tab Midodrine [ProAmatine] 5 mg PO AC-TID #30 tab allopurinoL [Zyloprim] 100 mg PO DAILY #1 tablet Warfarin Sodium 5 mg PO SUMOTUWETHSA Aspirin 81 mg PO DAILY chew Warfarin [Coumadin] 7.5 mg PO FR Levothyroxine Sodium [Euthyrox] 88 mcg PO DAILY Metoprolol Tartrate [Lopressor] 50 mg PO BID Changed Potassium Chloride ER [K-Dur 20] 20 meq PO BID #0 Discontinued Furosemide [Lasix] 40 mg PO DAILY Discharge Medication List Spironolactone [Aldactone] 25 mg PO DAILY #30 tab 03/08/18 [Rx] Midodrine [ProAmatine] 5 mg PO AC-TID #30 tab 01/31/19 [Rx] allopurinoL [Zyloprim] 100 mg PO DAILY #1 tablet 01/31/19 [Rx] Warfarin Sodium 5 mg PO SUMOTUWETHSA 06/05/19 [History] Aspirin 81 mg PO DAILY chew 07/08/19 [Rx] Levothyroxine Sodium [Euthyrox] 88 mcg PO DAILY 11/01/19 [History] Metoprolol Tartrate [Lopressor] 50 mg PO BID 11/01/19 [History] Warfarin [Coumadin] 7.5 mg PO FR 11/01/19 [History] Furosemide [Lasix] 60 mg PO BID #60 tab 11/10/19 [Rx] Lisinopril [Prinivil] 2.5 mg PO DAILY #30 tab 11/10/19 [Rx] Potassium Chloride ER [K-Dur 20] 20 meq PO BID #0 11/10/19 [Rx] Follow up Appointment(s)/Referral(s): Sherman Hall MD [Primary Care Provider] - 3 Days Sal Goodwin MD [STAFF PHYSICIAN] - 1 Week () Ambulatory/Diagnostic Orders: Basic Metabolic Panel [LAB.AMB] Location: None Selected Discharge Disposition: HOME SELF-CARE
[2019-11-10] MEDS ORDERED: WARFARIN 5 MG TAB PO SCH (18:00)
--- NOTE | 2019-11-10 19:02 | PN ---
PROGRESS NOTE Patient is seen for followup for chronic kidney disease and acute kidney injury. Patient is currently feeling better. His renal function is stable with creatinine at about 1.25 now, much improved from 2.23 on initial admission. Lasix has been changed to p.o. Patient is being considered for discharge. PHYSICAL EXAMINATION: On examination, blood pressure was 110/70, heart rate 76 per minute. He is afebrile. EXAMINATION OF THE HEART: S1 and S2. EXAMINATION OF LUNGS: Bilateral breath sounds are heard. ABDOMEN: Soft, non-tender. Examination of lower extremities shows chronic skin changes, edema 1+ bilaterally. TRAINING AND DEVELOPMENT MANAGER exam is grossly intact. LABS: Labs show sodium 137, potassium 3.8, chloride 99, BUN 36, creatinine 1.25, hemoglobin 14.3 g/dL. ASSESSMENT: 1. Acute kidney injury, currently improved. 2. Congestive heart failure, systolic, acute on top of chronic. 3. Cardiomyopathy; 20% to 25%. 4. Metabolic alkalosis with hypokalemia secondary to diuresis. 5. Chronic atrial fibrillation. PLAN: Patient can be discharged from nephrology standpoint. Follow up as outpatient for CKD post discharge. MMODL / IJN: [id number] /
--- NOTE | 2019-11-12 08:09 | CDI ---
Documentation Clarification Form Date: 11/12/19 From: Grace Morgan Phone: If you have a question about this query, please contact Haleigh Solomon, Dealer Support Technician at [phone] between 8am and 5pm. Admit Date: 11/02/19 Discharge Date:11/10/19 Patient Name: Omid López Visit Number: [id number] ATTENTION: The Clinical Documentation Specialists (CDI) and [facility] Coding Staff appreciate your assistance in clarifying documentation. Please respond to the clarification below the line at the bottom and electronically sign. The CDI & [facility] Coding staff will review the response and follow-up if needed. Please note: Queries are made part of the Legal Health Record. If you have any questions, please contact the author of this message via ITS. Dear Dr. Stearns Conflicting documentation has been found in the medical record: Acute on chronic congestive heart failure exacerbation from diastolic and systolic dysfunction was documented in the H&P, discharge summary and your progress notes. Cardiology documented acute on chronic systolic congestive heart failure. History/Risk Factors: CHF, CAD, history of [place], hypertension, persistent atrial fib Clinical Indicators: Shortness of breath, orthopnea, bilateral edema below the knees VS/Pulse Ox.: T. 98.1, P. 110, R. 20, BP 118/97, Pulse Ox.94% on 2 liters of O2 BNP: 08801 Echocardiogram Results: Echo done in May of this year showed severely impaired LV systolic function with ejection fraction between 20 - 25%. Chest X-ray: Minimal infiltrate and atelectasis right lung base is new compared to old exam. No heart failure seen. Moderate cardiomegaly unchanged. Treatment: IV Lasix 80 mg q 8 hours In your opinion, can you clarify the type of CHF? Systolic Diastolic Systolic and Diastolic Other explanation of clinical findings Unable to determine (no explanation for clinical findings) Acute on Chronic both Systolic and Diastolic dysfunction MTDD
--- NOTE | 2019-11-12 08:23 | CDI ---
Documentation Clarification Form Date: 11/12/19 From: Grace Morgan Phone: If you have a question about this query, please contact Haleihg Solomon, Collection Administrator at [phone] between 8am and 5pm. Admit Date: 11/02/19 Discharge Date:11/10/19 Patient Name: Omid López Visit Number: [id number] ATTENTION: The Clinical Documentation Specialists (CDI) and [facility] Coding Staff appreciate your assistance in clarifying documentation. Please respond to the clarification below the line at the bottom and electronically sign. The CDI & [facility] Coding staff will review the response and follow-up if needed. Please note: Queries are made part of the Legal Health Record. If you have any questions, please contact the author of this message via ITS. Dear Dr. Rosas Hypotension is documented in your consult note and cardiology 11/03 - 11/09 progress notes. History/Risk Factors: CHF exacerbation, CAD, previous NV, hypertension, LELAND, CKD 3, persistent atrial fib Clinical Indicators: Decreased blood pressure Patients B/P: 11/02/19 - at 1:50 a.m., 92/65 at 12:00; 11/06/19 91/60 At 8:00 a.m.; 11/08/19 - /58 At 11:32 a.m.; 11/09/19 - 54 at 11:15 a.m. Labs: BNP 53121, BUN 49, Creatinine 2.23, Troponin 0.083, chloride 108, carbon diox 13, sodium 134 Treatment: Midodrine 5 mg PO tid In your professional opinion, can you please specify the etiology of the hypotension if known? Iatrogenic Hypotension Idiopathic Hypotension Drug Induced Hypotension Other Condition, please specify Unable to determine XX MTDD
--- NOTE | 2019-11-12 08:34 | CDI ---
Documentation Clarification Form Date: 11/12/19 From: Grace Morgan Phone: If you have a question about this query, please contact Haleigh Solomon, Sushi Chef at [phone] between 8am and 5pm. Admit Date: 11/02/19 Discharge Date:11/10/19 Patient Name: Omid López Visit Number: [id number] ATTENTION: The Clinical Documentation Specialists (CDI) and [facility] Coding Staff appreciate your assistance in clarifying documentation. Please respond to the clarification below the line at the bottom and electronically sign. The CDI & [facility] Coding staff will review the response and follow-up if needed. Please note: Queries are made part of the Legal Health Record. If you have any questions, please contact the author of this message via ITS. Dear Dr. Stearns Your patient has a documented diagnosis of hypokalemia secondary to diuretics - which may lack sufficient clinical evidence/support. Hypokalemia secondary to diuretics is documented in the 11/07 - 11/09 nephrology progress notes. History/Risk Factors: CHF exacerbation, LELAND, CKD 3 Clinical Indicators: Documented hypokalemia Lab: Potassium 3.7 - 5.0 Treatment: K-Dur 20 meq PO daily Based on the clinical evidence and your professional judgment, do you feel [] is a valid diagnosis? Yes, hypokalema present/active during this admission as evidence by (additional clinical support): No, hypokalemia was ruled out. Other (please specify diagnosis) Unable to determine Yes, hypokalema present/active. Being replaced with K-dur MTDD
--- NOTE | 2019-11-18 14:06 | CDI ---
Documentation Clarification Form Date: 11/18/19 From: Grace Morgan Phone: If you have a question about this query, please contact Haleigh Solomon, Gun Perforator Loader at [phone] between 8am and 5pm. Admit Date: 11/02/19 Discharge Date:11/10/19 Patient Name: Omid López Visit Number: [id number] ATTENTION: The Clinical Documentation Specialists (CDI) and [facility] Coding Staff appreciate your assistance in clarifying documentation. Please respond to the clarification below the line at the bottom and electronically sign. The CDI & [facility] Coding staff will review the response and follow-up if needed. Please note: Queries are made part of the Legal Health Record. If you have any questions, please contact the author of this message via ITS. Dear Dr. López Thank you for signing the previous query. Please document a response before signing this query. Hypotension is documented in your consult note and cardiology 11/03 - 11/09 progress notes. History/Risk Factors: CHF exacerbation, CAD, previous [place], hypertension, LELAND, CKD 3, persistent atrial fib Clinical Indicators: Decreased blood pressure Patients B/P: 11/02/19 - at 1:50 a.m., 92/65 at 12:00; 11/06/19 91/60 At 8:00 a.m.; 11/08/19 - 58 At 11:32 a.m.; 11/09/19 - 54 at 11:15 a.m. Labs: BNP 96438, BUN 49, Creatinine 2.23, Troponin 0.083, chloride 108, carbon diox 13, sodium 134 Treatment: Midodrine 5 mg PO tid In your professional opinion, can you please specify the etiology of the hypotension if known? Iatrogenic Hypotension Idiopathic Hypotension Drug Induced Hypotension Other Condition, please specify Unable to determine _not the physician ___ MTDD
== END 2019-11-10 13:08 | disposition home or self-care (01) | DRG 291 ==
LOC: EC 22:21 → 3SCARD 11-02 02:27
PROVIDERS: ADMIT Hospitalist; ATTEND Hospitalist
DX: I13.0 Hypertensive heart and chronic kidney disease with heart failure and stage 1 through stage 4 chronic kidney disease, or unspecified chronic kidney disease (principal); J15.6 Pneumonia due to other Gram-negative bacteria; I50.43 Acute on chronic combined systolic (congestive) and diastolic (congestive) heart failure; E87.4 Mixed disorder of acid-base balance; I48.11 Longstanding persistent atrial fibrillation; I48.92 Unspecified atrial flutter; N17.9 Acute kidney failure, unspecified; Z68.43 Body mass index [BMI] 50.0-59.9, adult; I95.9 Hypotension, unspecified; I42.8 Other cardiomyopathies; N18.3 Chronic kidney disease, stage 3 (moderate); E03.9 Hypothyroidism, unspecified; E66.01 Morbid (severe) obesity due to excess calories; E78.5 Hyperlipidemia, unspecified; I25.10 Atherosclerotic heart disease of native coronary artery without angina pectoris; I25.2 Old myocardial infarction; I44.7 Left bundle-branch block, unspecified; I87.2 Venous insufficiency (chronic) (peripheral); I87.8 Other specified disorders of veins; E87.6 Hypokalemia; T50.2X5A Adverse effect of carbonic-anhydrase inhibitors, benzothiadiazides and other diuretics, initial encounter; I49.3 Ventricular premature depolarization; R79.89 Other specified abnormal findings of blood chemistry; I08.0 Rheumatic disorders of both mitral and aortic valves; Z79.01 Long term (current) use of anticoagulants; Z79.82 Long term (current) use of aspirin; Z79.890 Hormone replacement therapy; Z79.899 Other long term (current) drug therapy; Z96.1 Presence of intraocular lens; Z98.42 Cataract extraction status, left eye; Z98.41 Cataract extraction status, right eye; Z85.828 Personal history of other malignant neoplasm of skin; Z88.8 Allergy status to other drugs, medicaments and biological substances; Z87.01 Personal history of pneumonia (recurrent); Z98.890 Other specified postprocedural states; Z82.3 Family history of stroke; Z80.9 Family history of malignant neoplasm, unspecified
CPT/HCPCS: 36415; 71045; 80048; 80053; 81001; 83605; 83735; 83880; 84484; 85025; 85610; 85730; 87040; 93005; 96365; 96375; 99291

== ENCOUNTER 2020-09-06 17:09 | Inpatient (IN) | payer BC ==
--- NOTE | 2020-09-06 17:30 | ED ---
SOB HPI - General Chief Complaint: Shortness of Breath Stated Complaint: Exacerbation of CHF Time Seen by Provider: 09/06/20 17:13 Source: patient, EMS Mode of arrival: EMS Limitations: no limitations - History of Present Illness Initial Comments: 63-year-old male patient with a past medical history significant for A. fib, CAD, heart failure, hyperlipidemia, hypertension, kidney disease presents to the emergency department today for evaluation of increased dyspnea over the last 2 weeks. Patient states everyday he gets a little bit worse. Does not wear oxygen at home. Denies history of smoking. He currently is taking Lasix. Does report new wounds to the bilateral shins, does have swelling to the lower extremities with states this has not changed. Denies any fever, chills, cough, or congestion. Denies chest or upper back pain/tightness. Denies history of DVT. Does take Coumadin. Patient denies any recent rash, abdominal pain, nausea, vom iting, diarrhea, constipation, back pain, numbness, tingling, dizziness, weakness, hematuria, dysuria, urinary urgency, urinary frequency, headache, visual changes, or any other complaints. - Related Data Home Medications Medication Instructions Recorded Confirmed Warfarin Sodium 5 mg PO SUMOTUWETHSA 06/05/19 11/01/19 Levothyroxine Sodium [Euthyrox] 88 mcg PO DAILY 11/01/19 11/01/19 Metoprolol Tartrate [Lopressor] 50 mg PO BID 11/01/19 11/01/19 Warfarin [Coumadin] 7.5 mg PO FR 11/01/19 11/01/19 Furosemide [Lasix] 20 mg PO TID 09/06/20 09/06/20 Levothyroxine Sodium [Euthyrox] 100 mcg PO MOWEFR 09/06/20 09/06/20 Midodrine [ProAmatine] 5 mg PO TID 09/06/20 09/06/20 Spironolactone [Aldactone] 25 mg PO DAILY@1200 09/06/20 09/06/20 allopurinoL [Zyloprim] 100 mg PO DAILY@1200 09/06/20 09/06/20 lisinopriL [Zestril] 2.5 mg PO DAILY 09/06/20 09/06/20 Previous Rx's Medication Instructions Recorded Aspirin 81 mg PO DAILY chew 07/08/19 Potassium Chloride ER [K-Dur 20] 20 meq PO BID #0 11/10/19 Allergies Allergy/AdvReac Type Severity Reaction Status Date / Time amiodarone Allergy Rash/Hives Verified 09/06/20 19:11 ampicillin [From Unasyn] Allergy Rash/Hives Verified 09/06/20 19:11 sulbactam [From Unasyn] Allergy Rash/Hives Verified 09/06/20 19:11 Review of Systems ROS Statement: Those systems with pertinent positive or pertinent negative responses have been documented in the HPI. ROS Other: All systems not noted in ROS Statement are negative. Past Medical History Past Medical History: Atrial Fibrillation, Coronary Artery Disease (CAD), Cancer, Heart Failure, Hyperlipidemia, Hypertension, Myocardial Infarction ([place]), Pneumonia, Renal Disease, Thyroid Disorder Additional Past Medical History / Comment(s): Bronchitis, possible [place] per EKG, hypothyroid, CKD stage III, bilateral lower extremity venous insufficiency/boiler reliner denia venous stasis/past cellulitis bilateral lower legs, skin cancer with removals. Last Myocardial Infarction Date:: unkn History of Any Multi-Drug Resistant Organisms: None Reported Past Surgical History: Adenoidectomy, Tonsillectomy Additional Past Surgical History / Comment(s): Bilateral cataract removals/lens implants, skin cancer removals L hand/L shoulder/L ear, midline IV-since removed. Past Anesthesia/Blood Transfusion Reactions: No Reported Reaction Past Psychological History: No Psychological Hx Reported Smoking Status: Never smoker Past Alcohol Use History: None Reported Past Drug Use History: None Reported - Past Family History Father Family Medical History: CVA/TIA Additional Family Medical History / Comment(s): Father at the age of 90yrs. Mother Family Medical History: Cancer Additional Family Medical History / Comment(s): Mother from cancer (unknown type) at age 80s General Exam Limitations: no limitations General appearance: alert, in no apparent distress, other (This is a well- developed, well-nourished adult male patient in no acute distress. Vital signs upon presentation temperature 97.8F, pulse 89, respirations 26, blood pressure 117/80, pulse ox 96% on 3 L via nasal cannula.) Eye exam: Present: normal appearance, PERRL, EOMI. Absent: scleral icterus, conjunctival injection, periorbital swelling ENT exam: Present: normal exam, normal oropharynx Respiratory exam: Present: decreased breath sounds (Bilateral). Absent: respiratory distress, wheezes, rales, rhonchi, stridor Cardiovascular Exam: Present: regular rate, normal rhythm, normal heart sounds. Absent: systolic murmur, diastolic murmur, rubs, gallop, clicks GI/Abdominal exam: Present: soft, normal bowel sounds. Absent: distended, t enderness, guarding, rebound, rigid Neurological exam: Present: alert, oriented X3, CN II-XII intact Psychiatric exam: Present: normal affect, normal mood Skin exam: Present: warm, dry, intact, normal color. Absent: rash Course Vital Signs 09/06/20 09/06/20 09/06/20 17:11 18:00 19:00 Temperature 97.8 F Pulse Rate 89 94 Respiratory 26 H 28 H 18 Rate Blood Pressure 117/80 107/67 O2 Sat by Pulse 96 94 L Oximetry Medical Decision Making - Medical Decision Making 64-year-old male patient presents to the emergency department today for increasing shortness of breath over the last couple of weeks. Physical examination did reveal diminished lung sounds bilaterally. Did have edematous lower extremities with white wounds. Labs reviewed and did reveal normal white blood cell count, elevated BUN and creatinine which is consistent with his history. Did have elevated troponin 0.050 which also seems persistent for the patient and most likely due to troponin leak to renal failure. BNP is 17,400. Chest x-ray shows evidence for CHF. Patient was given a dose of IV Lasix. He'll be admitted to the hospital for further evaluation by cardiology and continued IV Lasix. Patient is agreeable this plan. Case discussed with my attending Dr. Toth. - Lab Data Result diagrams: 09/06/20 18:01 09/06/20 18:01 Lab Results 09/06/20 09/06/20 09/06/20 Range/Units 18:01 18:01 18:01 WBC 8.7 (3.8-10.6) k/uL RBC 4.67 (4.30-5.90) m/uL Hgb 14.4 (13.0-17.5) gm/dL Hct 44.4 (39.0-53.0) % MCV 94.9 (80.0-100.0) fL MCH 30.9 (25.0-35.0) pg MCHC 32.6 (31.0-37.0) g/dL RDW 16.3 H (11.5-15.5) % Plt Count 120 L (150-450) k/uL MPV 13.3 Neutrophils % 81 % Lymphocytes % 9 % Monocytes % 6 % Eosinophils % 2 % Basophils % 1 % Neutrophils # 7.1 (1.3-7.7) k/uL Lymphocytes # 0.8 L (1.0-4.8) k/uL Monocytes # 0.5 (0-1.0) k/uL Eosinophils # 0.2 (0-0.7) k/uL Basophils # 0.1 (0-0.2) k/uL Hypochromasia Slight Anisocytosis Slight PT 17.4 H (9.0-12.0) sec INR 1.8 H (<1.2) APTT 28.5 (22.0-30.0) sec Sodium 139 (137-145) mmol/L Potassium 5.4 H (3.5-5.1) mmol/L Chloride 108 H (98-107) mmol/L Carbon Dioxide 20 L (22-30) mmol/L Anion Gap 11 mmol/L BUN 38 H (9-20) mg/dL Creatinine 1.78 H (0.66-1.25) mg/dL Est GFR (CKD-EPI)AfAm 46 (>60 ml/min/1.73 sqM) Est GFR (CKD-EPI)NonAf 40 (>60 ml/min/1.73 sqM) Glucose 107 H (74-99) mg/dL Plasma Lactic Acid Dario (0.7-2.0) mmol/L Calcium 8.8 (8.4-10.2) mg/dL Magnesium 2.3 (1.6-2.3) mg/dL Total Bilirubin 1.8 H (0.2-1.3) mg/dL AST 32 (17-59) U/L ALT 17 (4-49) U/L Alkaline Phosphatase 113 (38-126) U/L Troponin I (0.000-0.034) ng/mL NT-Pro-B Natriuret Pep pg/mL Total Protein 6.6 (6.3-8.2) g/dL Albumin 3.7 (3.5-5.0) g/dL 09/06/20 09/06/20 09/06/20 Range/Units 18:01 18:01 18:01 WBC (3.8-10.6) k/uL RBC (4.30-5.90) m/uL Hgb (13.0-17.5) gm/dL Hct (39.0-53.0) % MCV (80.0-100.0) fL MCH (25.0-35.0) pg MCHC (31.0-37.0) g/dL RDW (11.5-15.5) % Plt Count (150-450) k/uL MPV Neutrophils % % Lymphocytes % % Monocytes % % Eosinophils % % Basophils % % Neutrophils # (1.3-7.7) k/uL Lymphocytes # (1.0-4.8) k/uL Monocytes # (0-1.0) k/uL Eosinophils # (0-0.7) k/uL Basophils # (0-0.2) k/uL Hypochromasia Anisocytosis PT (9.0-12.0) sec INR (<1.2) APTT (22.0-30.0) sec Sodium (137-145) mmol/L Potassium (3.5-5.1) mmol/L Chloride (98-107) mmol/L Carbon Dioxide (22-30) mmol/L Anion Gap mmol/L BUN (9-20) mg/dL Creatinine (0.66-1.25) mg/dL Est GFR (CKD-EPI)AfAm (>60 ml/min/1.73 sqM) Est GFR (CKD-EPI)NonAf (>60 ml/min/1.73 sqM) Glucose (74-99) mg/dL Plasma Lactic Acid Dario 0.9 (0.7-2.0) mmol/L Calcium (8.4-10.2) mg/dL Magnesium (1.6-2.3) mg/dL Total Bilirubin (0.2-1.3) mg/dL AST (17-59) U/L ALT (4-49) U/L Alkaline Phosphatase (38-126) U/L Troponin I 0.050 H* (0.000-0.034) ng/mL NT-Pro-B Natriuret Pep 91703 pg/mL Total Protein (6.3-8.2) g/dL Albumin (3.5-5.0) g/dL - Radiology Data Radiology results: report reviewed, image reviewed Two-view x-ray of the chest is obtained. Report was reviewed in its entirety. Impression by Dr. Green radiologist shows clinical correlation recommended for congestive heart failure. Disposition Clinical Impression: CHF exacerbation Disposition: ADMITTED IP TO THIS [facility] Condition: Serious Referrals: Sherman Hall MD [Primary Care Provider] - 1-2 days Decision to Admit Reason: Admit from EC Decision Date: 09/06/20 Decision Time: 19:29
[2020-09-06 18:09] LABS: Anisocytosis Slight; Basophils # (A) 0.1 k/uL (0-0.2); Basophils % (A) 1 %; Eosinophils # (A) 0.2 k/uL (0-0.7); Eosinophils % (A) 2 %; HCT 44.4 % (39.0-53.0); HGB 14.4 gm/dL (13.0-17.5); Hypochromasia Slight; Lymphocytes # (A) 0.8 k/uL (1.0-4.8); Lymphocytes % (A) 9 %; MCH 30.9 pg (25.0-35.0); MCHC 32.6 g/dL (31.0-37.0); MCV 94.9 fL (80.0-100.0); Mean Platelet Volume 13.3; Monocytes # (A) 0.5 k/uL (0-1.0); Monocytes % (A) 6 %; Neutrophils # (A) 7.1 k/uL (1.3-7.7); Neutrophils % (A) 81 %; Platelet Count 120 k/uL (150-450); RBC 4.67 m/uL (4.30-5.90); RDW 16.3 % (11.5-15.5); WBC 8.7 k/uL (3.8-10.6)
[2020-09-06 18:23] LABS: INR 1.8 (<1.2); Partial Thromboplastin Time 28.5 sec (22.0-30.0); Prothrombin Time 17.4 sec (9.0-12.0)
--- NOTE | 2020-09-06 18:25 | XR ---
EXAMINATION TYPE: XR chest 2V DATE OF EXAM: 09/06/2020 COMPARISON: 11/13/2019 INDICATION: Difficulty breathing TECHNIQUE: Frontal and lateral views of the chest are obtained. FINDINGS: The heart size is large. The pulmonary vasculature is prominent. Diffuse increased lung markings are present bilaterally.. IMPRESSION: 1. Clinical correlation recommended for congestive heart failure
[2020-09-06 18:48] LABS: Albumin 3.7 g/dL (3.5-5.0); Calcium 8.8 mg/dL (8.4-10.2); Magnesium 2.3 mg/dL (1.6-2.3); Potassium 5.4 mmol/L (3.5-5.1); Total Bilirubin 1.8 mg/dL (0.2-1.3); Total Protein 6.6 g/dL (6.3-8.2)
[2020-09-06] MEDS ORDERED: FUROSEMIDE 10 MG/ML 4 ML VIAL IV STA ×2 (18:59→23:47)
[2020-09-06] MEDS ORDERED: NALOXONE 0.4 MG/ML 1 ML VIAL IV PRN (19:11)
[2020-09-06] MEDS ORDERED: FUROSEMIDE 10 MG/ML 4 ML VIAL IV SCH (21:00)
[2020-09-06] MEDS: IPRATROPIUM-ALBUTEROL 3 ML NEB INHALATION PRN (22:22)
[2020-09-07 07:26] LABS: Anisocytosis Slight; Basophils # (A) 0.1 k/uL (0-0.2); Basophils % (A) 1 %; Eosinophils # (A) 0.1 k/uL (0-0.7); Eosinophils % (A) 1 %; HCT 49.4 % (39.0-53.0); HGB 15.2 gm/dL (13.0-17.5); Hypochromasia Slight; Lymphocytes # (A) 0.8 k/uL (1.0-4.8); Lymphocytes % (A) 10 %; MCH 29.3 pg (25.0-35.0); MCHC 30.9 g/dL (31.0-37.0); Mean Platelet Volume 17.4; Monocytes # (A) 0.8 k/uL (0-1.0); Monocytes % (A) 8 %; Neutrophils # (A) 7.1 k/uL (1.3-7.7); Neutrophils % (A) 80 %; RDW 16.6 % (11.5-15.5); WBC 8.9 k/uL (3.8-10.6)
[2020-09-07 07:30] LABS: INR 1.7 (<1.2); Prothrombin Time 16.8 sec (9.0-12.0)
[2020-09-07 07:46] LABS: Potassium 5.9 mmol/L (3.5-5.1)
[2020-09-07] MEDS: IPRATROPIUM-ALBUTEROL 3 ML NEB INHALATION PRN (08:34)
--- NOTE | 2020-09-07 08:44 | XR ---
EXAMINATION TYPE: XR chest 1V DATE OF EXAM: 09/07/2020 COMPARISON: 09/06/2020 HISTORY: Shortness of breath TECHNIQUE: Single frontal view of the chest is obtained. FINDINGS: Patient is rotated, technique is apical lordotic. Heart is markedly enlarged. No evident p neumothorax or pleural effusion. There is improvement in the interstitium. Central vascularity appear s prominently. IMPRESSION: Suspect some improvement in aeration, volume status. Marked cardiomegaly.
[2020-09-07] MEDS: FUROSEMIDE 10 MG/ML 4 ML VIAL IV SCH ×3 (09:00→23:09)
[2020-09-07] MEDS: METOPROLOL TARTRATE 50 MG TAB PO SCH ×2 (09:00→20:45)
[2020-09-07] MEDS ORDERED: SODIUM POLYSTYRENE SULFONATE 15 GM/60 ML BOTTLE PO STA (09:38)
[2020-09-07] MEDS ORDERED: INSULIN REGULAR 100 UNIT/ML VIAL IV ONE (09:38)
[2020-09-07] MEDS ORDERED: DEXTROSE 50% SYRINGE 50 ML IVP STA (09:39)
--- NOTE | 2020-09-07 10:46 | P.CRDCN ---
History of Present Illness History of present illness: HISTORY OF PRESENTING ILLNESS This is a pleasant 64-year-old male past medical history significant for chronic persistent atrial fibrillation on warfarin, dilated cardiomyopathy, chronic systolic heart failure, hypertension, COPD, dyslipidemia and chronic kidney disease. He follows in the office with Dr. Goodwin. We have been asked to see in consultation for heart failure. He presented to the hospital with a 3 week history of worsening shortness of breath, lower extremity edema and weight gain. He states his activity level has been decreased due to his breathing and he has gained 40lbs in the previous 6 months. He saw his PCP yesterday and was sent in for diuresis. He is seen and examined sitting up in bed. He is tachyneic at rest but maintaining his oxygen saturations. He has been started on IV diuretics. DIAGNOSTICS EKG reveals atrial fibrillation heart rate 90, left axis deviation and left bundle branch block. Telemetry tracings indicate atrial fibrillation with variable ventricular rates. Chest xray on admission revealed cardiomegatly with prominent pulmonary vasculature and diffuse lung markings bilaterally. Repeat today reveals some improvement in aeration. Laboratory reviewed, WBC 8.9, hemoglobin 15.2, platelets 120, INR 1.8, sodium 140, potassium 5.9, creatinine 1.79, magnesium 2.3, troponin 0.050, 0.05, 0.053, NTproBNP 17,400. Current cardiac medications include warfarin, lasix 20 mg TID, aldactone 25 mg daily, lopressor 50 mg BID, aspirin 81 mg daily, lisinopril 2.5 mg daily and daily potassium supplementation. Most recent echocardiogram obtained May 2019 revealed severely impaired LV systolic function with ejection fraction 20-25%, global LV hypokinesia, grade 2 diastolic dysfunction, mildly dilated left ventricle, mild MR and mild TR. REVIEW OF SYSTEMS At the time of my exam: CONSTITUTIONAL: Denies fever or chills. CARDIOVASCULAR: Complains of shortness of breath, orthopnea and PND. Denies chest pain or palpitations. RESPIRATORY: Denies cough. GASTROINTESTINAL: Denies abdominal pain, diarrhea, constipation, nausea or vomiting. MUSCULOSKELETAL: Denies myalgias. NEUROLOGIC: Denies numbness, tingling, headacbe or weakness. ENDOCRINE: Denies fatigue, weight change, polydipsia or polyurina. GENITOURINARY: Denies burning, hematuria or urgency with micturation. HEMATOLOGIC: Denies history of anemia or bleeding. PHYSICAL EXAMINATION Blood pressure 107/86 heart rate 114 afebrile and maintaining oxygen saturation on nasal cannula. CONSTITUTIONAL: Mild respiratory distress. Morbidly obese. HEENT: Head is normocephalic. Pupils are equal, round. Sclerae anicteric. Mucous membranes of the mouth are moist. No JVD. No carotid bruit. CHEST EXAMINATION: Difficult to ascertain lung sounds given body hapitus and the pts inability to lean forward. Clear anteriorly. No chest wall tenderness is noted on palpation or with deep breathing. HEART EXAMINATION: Irregular rate and rhythm. S1, S2 heard. No murmurs, gallops or rub. ABDOMEN: Soft, nontender. Positive bowel sounds. EXTREMITIES: 2+ peripheral pulses, 2+ bilateral lower extremity pitting edema with erythema and no calf tenderness. NEUROLOGIC EXAMINATION: Patient is awake, alert and oriented x3. ASSESSMENT Acute on chronic systolic heart failure Chronic persistent atrial fibrillation on long-term anticoagulation with variable ventricular rates Hypertension Hyperkalemia Thrombocytopenia Troponin leak not indicative of myocardial ischemia, likely secondary to a combination of acute heart failure and chronic kidney disease Chronic kidney disease COPD Morbid obesity, BMI 47 PLAN Hold Aldactone secondary to hyperkalemia. Increase Lasix to 3 times a day. Document accurate intake and output along with daily weights. Repeat 2-D echocardiogram and Doppler study to assess cardiac structure and function. Continue metoprolol and lisinopril as previously ordered. Follow renal function and electrolytes in the morning. The patient should be considered for BiV ICD placement when his heart failure regimen is optimized. Further recommendations to follow based upon clinical course. Thank you kindly for this consultation. Nurse Practitioner note has been reviewed, I agree with a documented findings and plan of care. Patient was seen and examined. Past Medical History Past Medical History: Atrial Fibrillation, Coronary Artery Disease (CAD), Cancer, Heart Failure, COPD, Hyperlipidemia, Hypertension, Myocardial Infarction ([place]), Pneumonia, Renal Disease, Thyroid Disorder Additional Past Medical History / Comment(s): Bronchitis, possible MA per EKG, hypothyroid, CKD stage III, bilateral lower extremity venous insufficiency/chronic venous stasis/past cellulitis bilateral lower legs, skin cancer with removals. Last Myocardial Infarction Date:: unkn History of Any Multi-Drug Resistant Organisms: None Reported Past Surgical History: Adenoidectomy, Tonsillectomy Additional Past Surgical History / Comment(s): Bilateral cataract removals/lens implants, skin cancer removals L hand/L shoulder/L ear, midline IV-since removed. Past Anesthesia/Blood Transfusion Reactions: No Reported Reaction Past Psychological History: No Psychological Hx Reported Additional Psychological History / Comment(s): Pt resides with a roomate. He is retired. He uses no assistive device. He does not drive often anymore, his roomate takes him where he needs to go. Smoking Status: Never smoker Past Alcohol Use History: None Reported Past Drug Use History: None Reported - Past Family History Father Family Medical History: CVA/TIA Additional Family Medical History / Comment(s): Father at the age of 90yrs. Mother Family Medical History: Cancer Additional Family Medical History / Comment(s): Mother from cancer (unknown type) at age 80s Medications and Allergies Home Medications Medication Instructions Recorded Confirmed Type Warfarin Sodium 5 mg PO SUMOWETHSA 06/05/19 09/06/20 History Aspirin 81 mg PO DAILY chew 07/08/19 09/06/20 Rx Levothyroxine Sodium [Euthyrox] 88 mcg PO SUTUTHSA 11/01/19 09/06/20 History Metoprolol Tartrate [Lopressor] 50 mg PO BID 11/01/19 09/06/20 History Warfarin [Coumadin] 7.5 mg PO TUFR 11/01/19 09/06/20 History Potassium Chloride ER [K-Dur 20] 20 meq PO BID #0 11/10/19 09/06/20 Rx Furosemide [Lasix] 20 mg PO TID 09/06/20 09/06/20 History Levothyroxine Sodium [Euthyrox] 100 mcg PO MOWEFR 09/06/20 09/06/20 History Midodrine [ProAmatine] 5 mg PO TID 09/06/20 09/06/20 History Spironolactone [Aldactone] 25 mg PO DAILY@1200 09/06/20 09/06/20 History allopurinoL [Zyloprim] 100 mg PO DAILY@1200 09/06/20 09/06/20 History lisinopriL [Zestril] 2.5 mg PO DAILY 09/06/20 09/06/20 History Allergies Allergy/AdvReac Type Severity Reaction Status Date / Time amiodarone Allergy Rash/Hives Verified 09/06/20 19:11 ampicillin [From Unasyn] Allergy Rash/Hives Verified 09/06/20 19:11 sulbactam [From Unasyn] Allergy Rash/Hives Verified 09/06/20 19:11 Physical Exam Vitals: Vital Signs Temp Pulse Pulse Resp BP BP Pulse Ox 09/07/20 08:55 97.5 F L 114 H 20 107/86 92 L 09/07/20 08:46 60 22 09/07/20 08:35 55 L 20 95 09/07/20 04:00 97.4 F L 98 22 127/71 97 09/07/20 01:30 83 16 09/07/20 00:00 97.5 F L 83 16 145/62 96 09/06/20 22:35 80 09/06/20 22:22 76 09/06/20 21:17 97.5 F L 103 H 20 123/74 92 L 09/06/20 20:33 122/87 97 09/06/20 20:00 100 18 109/87 96 09/06/20 19:00 94 18 107/67 94 L 09/06/20 18:00 28 H 09/06/20 17:11 97.8 F 89 26 H 117/80 96 Intake and Output 09/06/20 09/07/20 09/07/20 22:59 06:59 14:59 Intake Total 185 10 Output Total 2200 1000 Balance -2014 Intake: IV 10 10 Invasive Line 1 10 10 Oral 175 Output: Urine 2200 1000 Straight 1000 1000 Other: Voiding Method Urinal Urinal # Voids 1 Weight 158.757 kg 141 kg Results 09/07/20 06:12 09/07/20 06:12 Cardiac Enzymes 09/06/20 09/06/20 09/06/20 Range/Units 18:01 18:01 21:11 AST 32 (17-59) U/L Troponin I 0.050 H* 0.058 H* (0.000-0.034) ng/mL 09/07/20 Range/Units 00:21 AST (17-59) U/L Troponin I 0.053 H* (0.000-0.034) ng/mL Coagulation 09/06/20 09/07/20 Range/Units 18:01 07:10 PT 17.4 H 16.8 H (9.0-12.0) sec APTT 28.5 (22.0-30.0) sec CBC 09/06/20 09/07/20 Range/Units 18:01 06:12 WBC 8.7 8.9 (3.8-10.6) k/uL RBC 4.67 5.20 (4.30-5.90) m/uL Hgb 14.4 15.2 (13.0-17.5) gm/dL Hct 44.4 49.4 (39.0-53.0) % Plt Count 120 L (150-450) k/uL Comprehensive Metabolic Panel 09/06/20 09/07/20 Range/Units 18: 06:12 Sodium 139 140 (137-145) mmol/L Potassium 5.4 H 5.9 H (3.5-5.1) mmol/L Chloride 108 H 107 (98-107) mmol/L Carbon Dioxide 20 L 21 L (22-30) mmol/L BUN 38 H 38 H (9-20) mg/dL Creatinine 1.78 H 1.79 H (0.66-1.25) mg/dL Glucose 107 H 92 (74-99) mg/dL Calcium 8.8 9.0 (8.4-10.2) mg/dL AST 32 (17-59) U/L ALT 17 (4-49) U/L Alkaline Phosphatase 113 (38-126) U/L Total Protein 6.6 (6.3-8.2) g/dL Albumin 3.7 (3.5-5.0) g/dL Current Medications Generic Name Dose Route Start Last Admin Trade Name Freq PRN Reason Stop Dose Admin Albuterol/Ipratropium 3 ml 09/06/20 22:04 09/07/20 08:34 Ipratropium-Albuterol 3 Ml Neb INHALATION 3 ml RT-TID PRN Administration Shortness Of Breath Or Wheezing Allopurinol 100 mg 09/07/20 12:00 Allopurinol 100 Mg Tab PO DAILY@1200 RADHA Aspirin 81 mg 09/07/20 09:45 Aspirin 81 Mg PO DAILY RADHA Furosemide 40 mg 09/07/20 08:00 09/07/20 09:00 Furosemide 10 Mg/Ml 4 Ml Vial IV 40 mg Q8HR RADHA Administration Levothyroxine Sodium 100 mcg 09/08/20 06:30 Levothyroxine 100 Mcg Tab PO [email or web address] [facility] Levothyroxine Sodium 88 mcg 09/07/20 09:45 Levothyroxine 88 Mcg Tab PO [email or web address] [facility] Lisinopril 2.5 mg 09/07/20 09:00 09/07/20 09:00 Lisinopril 2.5 Mg Tab PO 2.5 mg DAILY RADHA Administration Metoprolol Tartrate 50 mg 09/07/20 09:00 09/07/20 09:00 Metoprolol Tartrate 50 Mg Tab PO 50 mg BID RADHA Administration Miscellaneous Information 0 each 09/07/20 07:55 Warfarin Per Pharmacy MISCELLANE DIRECTED PRN PHARMACY DOSING WARFARIN Naloxone HCl 0.2 mg 09/06/20 19:11 Naloxone 0.4 Mg/Ml 1 Ml Vial IV Q2M PRN Opioid Reversal Warfarin Sodium 7.5 mg 09/07/20 18:00 Warfarin 7.5 Mg Tab PO [email or web address] [facility] Protocol Warfarin Sodium 5 mg 09/08/20 18:00 Warfarin 5 Mg Tab PO [email or web address] [facility] Protocol Intake and Output 09/06/20 09/07/20 09/07/20 22:59 06:59 14:59 Intake Total 185 10 Output Total 2200 1000 Intake: IV 10 10 Invasive Line 1 10 10 Oral 175 Output: Urine 2200 1000 Straight 1000 1000 Other: Voiding Method Urinal Urinal # Voids 1 Weight 158.757 kg 141 kg 09/07/20 06:12 09/07/20 06:12
[2020-09-07] MEDS: ASPIRIN 81 MG PO SCH (10:55)
[2020-09-07] MEDS: LEVOTHYROXINE 88 MCG TAB PO SCH (10:55)
[2020-09-07 11:24] LABS: Large Platelets Present
[2020-09-07] MEDS ORDERED: SPIRONOLACTONE 25 MG TAB PO SCH (12:00)
--- NOTE | 2020-09-07 12:01 | ECHOF ---
Referral Reason:sob MEASUREMENTS -------- HEIGHT: 0.0 cm WEIGHT: 0.0 kg BP: RVIDd: 4.4 cm (< 3.3) IVSd: 1.0 cm (0.6 - 1.1) LVIDd: 6.6 cm (3.9 - 5.3) LVPWd: 1.4 cm (0.6 - 1.1) IVSs: 1.6 cm LVIDs: 6.1 cm LVPWs: 1.5 cm Ao Diam: 3.8 cm (2.0 - 3.7) AV Cusp: 2.6 cm (1.5 - 2.6) LA Diam: 4.0 cm (2.7 - 3.8) RAP: 5.00 mmHg RVSP: 42.91 mmHg FINDINGS -------- This was a technically difficult study with suboptimal views. The left ventricle is moderately dilated. Left ventricular wall thickness is normal. There is sev ere global hypokinesis of LV . Overall left ventricular systolic function is severely impaired with , an EF between 20 - 25 %. The right ventricle is severely enlarged. The left atrium is mildly dilated. The right atrium was not well visualized. Lumason used The aortic valve was not well visualized. The mitral valve is normal. There is trace mitral regurgitation. Mild tricuspid regurgitation present. There is mild pulmonary hypertension. The right ventricular systolic pressure, as measured by Doppler, is 42.91mmHg. The pulmonic valve was not well visualized. The aortic root size is normal. IVC Not well visulized. There is a trivial pericardial effusion present. CONCLUSIONS -------- 1. This was a technically difficult study with suboptimal views. 2. The left ventricle is moderately dilated. 3. There is severe global hypokinesis of LV . 4. Overall left ventricular systolic function is severely impaired with, an EF between 20 - 25 %. 5. The right ventricle is severely enlarged. 6. The left atrium is mildly dilated. 7. There is trace mitral regurgitation. 8. Mild tricuspid regurgitation present. 9. There is mild pulmonary hypertension. 10. There is a trivial pericardial effusion present. REGISTRATION OFFICER: Julee Maurer, [facility]
[2020-09-07] MEDS ORDERED: METOPROLOL TARTRATE 50 MG TAB PO STA (13:08)
[2020-09-07] MEDS: allopurinoL 100 MG TAB PO SCH (13:12)
--- NOTE | 2020-09-07 14:47 | P.HPIM ---
History of Present Illness H&P Date: 09/07/20 Chief Complaint: Shortness of breath Patient is a 64-year-old male with a known history of chronic atrial fibrillation on anticoagulation with warfarin, chronic CHF with systolic dysfunction, hypertension, hyperlipidemia, history of my, hypothyroidism, stage III CKD, bilateral lower extremity venous insufficiency/venous stasis and previous history of cellulitis and other medical problems presents to ER with complaints of shortness of breath worsening for the past 2-4 weeks. Patient was also having increased leg swelling. No complaints of chest pain. No nausea vomiting or abdominal pain or diarrhea. No fever no chills. Denied any dysuria hematuria. No headache or dizziness. Chest x-ray showed pulmonary vascular congestion and increased lung markings, possible CHF. EKG showed atrial fibrillation with ventricle rate elevated 90. Laboratory data showed WBC 8.7, hemoglobin 14.4, platelets 120 INR 1.8 Sodium 139 potassium 5.4 chloride 108 BUN 38 and creatinine 1.78 Troponin 0.050, 0.058 and 0.053 ProBNP 17143 COVID-19 PCR not detected. Today morning bladder scan showed thousand cc of urine noted. Straight cath 1 was done. Review of Systems Constitutional: Patient denies any fever or chills . No generalized weakness or weight loss. Abdomen: Patient denied nausea vomiting and diarrhea and abdominal pain. Cardiovascular: Denied any complaints of chest pain. Worsening shortness of breath and leg swelling.. Respiratory: patient denied any cough is from production. No shortness of breath Neurologic: Patient denied any numbness or tingling headache. Musculoskeletal: Patient denies any complaints of joint swelling or deformity. Skin: Negative Psychiatric: Negative Endocrine: No heat or cold intolerance. No recent weight gain. Genitourinary: No dysuria or hematuria. All other 14 point ROS negative except the above Past Medical History Past Medical History: Atrial Fibrillation, Coronary Artery Disease (CAD), Cancer, Heart Failure, COPD, Hyperlipidemia, Hypertension, Myocardial Infarction ([place]), Pneumonia, Renal Disease, Thyroid Disorder Additional Past Medical History / Comment(s): Bronchitis, possible [place] per EKG, hypothyroid, CKD stage III, bilateral lower extremity venous insufficiency/chronic venous stasis/past cellulitis bilateral lower legs, skin cancer with removals. Last Myocardial Infarction Date:: unkn History of Any Multi-Drug Resistant Organisms: None Reported Past Surgical History: Adenoidectomy, Tonsillectomy Additional Past Surgical History / Comment(s): Bilateral cataract removals/lens implants, skin cancer removals L hand/L shoulder/L ear, midline IV-since removed. Past Anesthesia/Blood Transfusion Reactions: No Reported Reaction Past Psychological History: No Psychological Hx Reported Additional Psychological History / Comment(s): Pt resides with a roomate. He is retired. He uses no assistive device. He does not drive often anymore, his roomate takes him where he needs to go. Smoking Status: Never smoker Past Alcohol Use History: None Reported Past Drug Use History: None Reported - Past Family History Father Family Medical History: CVA/TIA Additional Family Medical History / Comment(s): Father at the age of 90yrs. Mother Family Medical History: Cancer Additional Family Medical History / Comment(s): Mother from cancer (unknown type) at age 80s Medications and Allergies Home Medications Medication Instructions Recorded Confirmed Type Warfarin Sodium 5 mg PO SUMOWETHSA 06/05/19 09/06/20 History Aspirin 81 mg PO DAILY chew 07/08/19 09/06/20 Rx Levothyroxine Sodium [Euthyrox] 88 mcg PO SUTUTHSA 11/01/19 09/06/20 History Metoprolol Tartrate [Lopressor] 50 mg PO BID 11/01/19 09/06/20 History Warfarin [Coumadin] 7.5 mg PO TUFR 11/01/19 09/06/20 History Potassium Chloride ER [K-Dur 20] 20 meq PO BID #0 11/10/19 09/06/20 Rx Furosemide [Lasix] 20 mg PO TID 09/06/20 09/06/20 History Levothyroxine Sodium [Euthyrox] 100 mcg PO MOWEFR 09/06/20 09/06/20 History Midodrine [ProAmatine] 5 mg PO TID 09/06/20 09/06/20 History Spironolactone [Aldactone] 25 mg PO DAILY@1200 09/06/20 09/06/20 History allopurinoL [Zyloprim] 100 mg PO DAILY@1200 09/06/20 09/06/20 History lisinopriL [Zestril] 2.5 mg PO DAILY 09/06/20 09/06/20 History Allergies Allergy/AdvReac Type Severity Reaction Status Date / Time amiodarone Allergy Rash/Hives Verified 09/06/20 19:11 ampicillin [From Unasyn] Allergy Rash/Hives Verified 09/06/20 19:11 sulbactam [From Unasyn] Allergy Rash/Hives Verified 09/06/20 19:11 Physical Exam Vitals: Vital Signs Temp Pulse Pulse Resp BP BP Pulse Ox 09/07/20 08:55 97.5 F L 114 H 20 107/86 92 L 09/07/20 08:46 60 22 09/07/20 08:35 55 L 20 95 09/07/20 04:00 97.4 F L 98 22 127/71 97 09/07/20 01:30 83 16 09/07/20 00:00 97.5 F L 83 16 145/62 96 09/06/20 22:35 80 09/06/20 22:22 76 09/06/20 21:17 97.5 F L 103 H 20 123/74 92 L 09/06/20 20:33 122/87 97 09/06/20 20:00 100 18 109/87 96 09/06/20 19:00 94 18 107/67 94 L 09/06/20 18:00 28 H 09/06/20 17:11 97.8 F 89 26 H 117/80 96 Intake and Output 09/06/20 09/07/20 09/07/20 22:59 06:59 14:59 Intake Total 185 Output Total 2200 -2014 Intake: IV 10 Invasive Line 1 10 Oral 175 Output: Urine 2200 Straight 1000 Other: Voiding Method Urinal # Voids 1 Weight 158.757 kg 141 kg PHYSICAL EXAMINATION: Patient is lying in the bed comfortably, no acute distress, awake alert and oriented.. HEENT: Normocephalic. Neck is supple. Pupils reactive. Nostrils clear. Oral cavity is moist. Ears reveal no drainage. Neck reveals no JVD, carotid bruits, or thyromegaly. CHEST EXAMINATION: Trachea is central. Symmetrical expansion. Bibasilar diminished sounds and left minimal left basilar crackles. Mild expiratory w heezing.. CARDIAC: Normal S1, S2 with no gallops. No murmurs ABDOMEN: Soft. Bowel sounds normal. No organomegaly. No abdominal bruits. Extremities: 3+ bilateral pedal and chronic venostasis changes.. No clubbing or cyanosis Neurologically awake, alert, oriented x3 with well-coordinated movements. No focal deficits noted Skin: No rash or skin lesions. Psychiatric: Coperative. Nonsuicidal Musculoskeletal: No joint swelling or deformity. Normal range of motion. Results CBC & Chem 7: 09/07/20 06:12 09/07/20 06:12 Labs: Abnormal Lab Results - Last 24 Hours (Table) 09/06/20 09/06/20 09/06/20 Range/Units 18:01 18:01 18:01 MCHC (31.0-37.0) g/dL RDW 16.3 H (11.5-15.5) % Plt Count 120 L (150-450) k/uL Lymphocytes # 0.8 L (1.0-4.8) k/uL PT 17.4 H (9.0-12.0) sec INR 1.8 H (<1.2) Potassium 5.4 H (3.5-5.1) mmol/L Chloride 108 H (98-107) mmol/L Carbon Dioxide 20 L (22-30) mmol/L BUN 38 H (9-20) mg/dL Creatinine 1.78 H (0.66-1.25) mg/dL Glucose 107 H (74-99) mg/dL Total Bilirubin 1.8 H (0.2-1.3) mg/dL Troponin I (0.000-0.034) ng/mL 09/06/20 09/06/20 09/07/20 Range/Units 18:01 21:11 00:21 MCHC (31.0-37.0) g/dL RDW (11.5-15.5) % Plt Count (150-450) k/uL Lymphocytes # (1.0-4.8) k/uL PT (9.0-12.0) sec INR (<1.2) Potassium (3.5-5.1) mmol/L Chloride (98-107) mmol/L Carbon Dioxide (22-30) mmol/L BUN (9-20) mg/dL Creatinine (0.66-1.25) mg/dL Glucose (74-99) mg/dL Total Bilirubin (0.2-1.3) mg/dL Troponin I 0.050 H* 0.058 H* 0.053 H* (0.000-0.034) ng/mL 09/07/20 09/07/20 09/07/20 Range/Units 06:12 06:12 07:10 MCHC 30.9 L (31.0-37.0) g/dL RDW 16.6 H (11.5-15.5) % Plt Count (150-450) k/uL Lymphocytes # (1.0-4.8) k/uL PT 16.8 H (9.0-12.0) sec INR 1.7 H (<1.2) Potassium 5.9 H (3.5-5.1) mmol/L Chloride (98-107) mmol/L Carbon Dioxide 21 L (22-30) mmol/L BUN 38 H (9-20) mg/dL Creatinine 1.79 H (0.66-1.25) mg/dL Glucose (74-99) mg/dL Total Bilirubin (0.2-1.3) mg/dL Troponin I (0.000-0.034) ng/mL Thrombosis Risk Factor Assmnt - DVT/VTE Prophylaxis DVT/VTE Prophylaxis: Pharmacologic Prophylaxis ordered - Choose All That Apply Any of the Below Risk Factors Present?: Yes Each Factor Represents 1 point: Obesity (BMI >25), Swollen legs (current) Other Risk Factors: Yes Each Risk Factor Represents 2 Points: Age 61-74 years Thrombosis Risk Factor Assessment Total Risk Factor Score: 4 Thrombosis Risk Factor Assessment Level: Moderate Risk Assessment and Plan Assessment: Acute on chronic CHF with systolic dysfunction ejection fraction 2024% as per TTE in May 2019 Chronic atrial fibrillation on anticoagulation with warfarin Subtherapeutic Level Mildly elevated troponin level likely due to demand ischemia with CHF and also complaining CK D Chronic kidney disease stage III Hyperkalemia due to acute kidney injury and potassium supplementation at home. Hypertension Hyperlipidemia History of [place] Morbid obesity BMI 47.3 DVT prophylaxis. Patient is already on Coumadin Plan: Patient will be continued on Lasix 40 mg every 12, increased to every 8 hourly as per cardiology recommendations. Monitor ABDIRASHID's and daily weights. Patient did require BiPAP last night. Currently transitioned to oxygen via nasal cannula. Titrate down to room air. Continue with metoprolol and lisinopril. Aldactone is on hold. Patient was given a dose of insulin/D50 and Kayexalate. Monitor repeat potassium level. Continue to monitor renal function. Coumadin dosing. Cardiology is on board. Patient will need biventricular ICD placement. Continue to follow closely. Time with Patient: Greater than 30
[2020-09-07] MEDS: IPRATROPIUM-ALBUTEROL 3 ML NEB INHALATION SCH ×2 (16:12→21:11)
[2020-09-07] MEDS ORDERED: WARFARIN 7.5 MG TAB PO SCH (18:00)
[2020-09-08] MEDS ORDERED: METOPROLOL TARTRATE 50 MG TAB PO STA (03:14)
[2020-09-08] MEDS: LEVOTHYROXINE 100 MCG TAB PO SCH (06:39)
[2020-09-08 08:30] LABS: INR 1.6 (<1.2); Prothrombin Time 16.2 sec (9.0-12.0)
[2020-09-08 08:33] LABS: Anisocytosis Slight; Basophils # (A) 0.1 k/uL (0-0.2); Basophils % (A) 0 %; Eosinophils % (A) 0 %; HCT 47.5 % (39.0-53.0); HGB 14.8 gm/dL (13.0-17.5); Hypochromasia Slight; Lymphocytes # (A) 0.5 k/uL (1.0-4.8); Lymphocytes % (A) 2 %; MCH 29.6 pg (25.0-35.0); MCHC 31.2 g/dL (31.0-37.0); MCV 95.1 fL (80.0-100.0); Mean Platelet Volume 15.8; Monocytes # (A) 1.2 k/uL (0-1.0); Monocytes % (A) 6 %; Neutrophils # (A) 19.8 k/uL (1.3-7.7); Neutrophils % (A) 92 %; Platelet Count 117 k/uL (150-450); RDW 16.5 % (11.5-15.5); WBC 21.6 k/uL (3.8-10.6)
[2020-09-08] MEDS: IPRATROPIUM-ALBUTEROL 3 ML NEB INHALATION SCH ×4 (08:45→21:32)
[2020-09-08 08:49] LABS: Calcium 9.5 mg/dL (8.4-10.2); Potassium 5.3 mmol/L (3.5-5.1)
[2020-09-08] MEDS: ASPIRIN 81 MG PO SCH (08:59)
[2020-09-08] MEDS: METOPROLOL TARTRATE 50 MG TAB PO SCH ×2 (08:59→20:52)
[2020-09-08] MEDS: FUROSEMIDE 10 MG/ML 4 ML VIAL IV SCH ×2 (08:59→15:48)
[2020-09-08 11:00] LABS: Large Platelets Present
--- NOTE | 2020-09-08 11:04 | XR ---
EXAMINATION TYPE: XR chest 1V DATE OF EXAM: 09/08/2020 CLINICAL HISTORY: Difficulty breathing progress study. TECHNIQUE: Single AP portable upright view of the chest is obtained. COMPARISON: Chest x-ray from one day earlier and older studies. CT chest September 12, 2019 FINDINGS: There are chronic parenchymal changes bilaterally with developing right basilar opacity. P ersistent cardiomegaly with ectatic thoracic aorta. Osseous structures are intact. IMPRESSION: Cardiomegaly and chronic parenchymal changes with developing right basilar acute infiltra te and/or atelectasis thought Present.
--- NOTE | 2020-09-08 11:09 | P.PN ---
Subjective HISTORY OF PRESENTING ILLNESS This is a pleasant 64-year-old male past medical history significant for chronic persistent atrial fibrillation on warfarin, dilated cardiomyopathy, chronic systolic heart failure, hypertension, COPD, dyslipidemia and chronic kidney disease. He follows in the office with Dr. Goodwin. We have been asked to see in consultation for heart failure. He presented to the hospital with a 3 week history of worsening shortness of breath, lower extremity edema and weight gain. He states his activity level has been decreased due to his breathing and he has gained 40lbs in the previous 6 months. He saw his PCP yesterday and was sent in for diuresis. He is seen and examined sitting up in bed. He is tachyneic at rest but maintaining his oxygen saturations. He has been started on IV diuretics. 09/08/2020 Pt seen and examined sitting up in bed in no acute distress. Overall his breathing is still labored but he states he feels mildly better. He did have Bipap on yesterday for additional support. Blood pressure 110/67 heart rate 126 afebrile and maintaining oxygen saturation on nasal cannula. Laboratory data reviewed, WBC 21.6, hemoglobin 14.8, INR 1.6, sodium 136, potassium 5.3, creatinine 2.12. He was given 2 additional dose of Lopressor yesterday for uncontrolled heart rate. Currently maintained on 50 mg twice a day. Repeat echocardiogram revealed severely impaired LV systolic function with ejection fraction 20-25%. No change from previous. 24-hr urine output 2245 ml. PHYSICAL EXAMINATION CONSTITUTIONAL: Mild respiratory distress. Morbidly obese. HEENT: Head is normocephalic. Pupils are equal, round. Sclerae anicteric. Mucous membranes of the mouth are moist. No JVD. No carotid bruit. CHEST EXAMINATION: Bibasilar rales, expiratory wheezes, no rales. No chest wall tenderness is noted on palpation or with deep breathing. HEART EXAMINATION: Irregular rate and rhythm. S1, S2 heard. No murmurs, gallops or rub. EXTREMITIES: 2+ peripheral pulses, 2+ bilateral lower extremity pitting edema with erythema and no calf tenderness. ASSESSMENT Acute on chronic systolic heart failure Chronic persistent atrial fibrillation on long-term anticoagulation with variable ventricular rates Hypertension Hyperkalemia Thrombocytopenia Troponin leak not indicative of myocardial ischemia, likely secondary to a combination of acute heart failure and chronic kidney disease Chronic kidney disease COPD Morbid obesity, BMI 47 PLAN Continue IV diuresis. Obtain nephrology evaluation. Add amiodarone 400 mg BID for rate control. Continue lopressor as previously ordered. Hold lisinopril due to worsening renal function. Nurse Practitioner note has been reviewed, I agree with a documented findings and plan of care. Patient was seen and examined. Objective - Vital Signs Vital signs: Vital Signs Temp 98.1 F 09/08/20 08:00 Pulse 126 H 09/08/20 08:00 Resp 20 09/08/20 08:00 BP 110/67 09/08/20 08:00 Pulse Ox 92 L 09/08/20 08:00 Intake & Output 09/07/20 09/08/20 09/08/20 18:59 06:59 18:59 Intake Total 1650 320 0 Output Total 1825 420 Balance -175 -100 0 Weight 168.3 kg Intake: IV 20 20 Invasive Line 1 20 20 Oral 550 300 0 Tube Feeding 1080 Output: Urine 1825 420 Straight 1000 Other: Voiding Method Indwelling Catheter Indwelling Catheter Indwelling Catheter # Bowel Movements 2 1 - Labs CBC & Chem 7: 09/08/20 06:50 09/08/20 06:50 Labs: Abnormal Lab Results - Last 24 Hours (Table) 09/07/20 09/07/20 09/08/20 Range/Units 06:12 16:09 06:50 WBC (3.8-10.6) k/uL RDW (11.5-15.5) % Lymphocytes # 0.8 L (1.0-4.8) k/uL PT (9.0-12.0) sec INR (<1.2) Sodium 136 L (137-145) mmol/L Potassium 5.4 H 5.3 H (3.5-5.1) mmol/L Carbon Dioxide 18 L (22-30) mmol/L BUN 46 H (9-20) mg/dL Creatinine 2.12 H (0.66-1.25) mg/dL 09/08/20 09/08/20 Range/Units 06:50 06:50 WBC 21.6 H (3.8-10.6) k/uL RDW 16.5 H (11.5-15.5) % Lymphocytes # (1.0-4.8) k/uL PT 16.2 H (9.0-12.0) sec INR 1.6 H (<1.2) Sodium (137-145) mmol/L Potassium (3.5-5.1) mmol/L Carbon Dioxide (22-30) mmol/L BUN (9-20) mg/dL Creatinine (0.66-1.25) mg/dL Microbiology - Last 24 Hours (Table) 09/07/20 17:45 Gram Stain - Preliminary Leg - Right Wound Culture - Preliminary 09/07/20 17:45 Anaerobic Culture - Preliminary Leg - Right
[2020-09-08] MEDS: AMIODARONE 200 MG TAB PO SCH ×2 (12:32→20:52)
[2020-09-08] MEDS: allopurinoL 100 MG TAB PO SCH (12:32)
[2020-09-08] MEDS: CEFEPIME 2 GM in SODIUM CHLORIDE 0.9% 100 ML IVPB SCH (15:47)
--- NOTE | 2020-09-08 17:30 | CONS ---
CONSULTATION REASON FOR CONSULTATION: Renal failure. HISTORY OF PRESENT ILLNESS: The patient is a 64-year-old male with history of chronic kidney disease NKF stage III, baseline creatinine about 1.3-1.4 mg/dL. The patient has had previous episodes of acute kidney injury during his last admission. Patient was seen in June of 2019 when he was admitted with a rash and congestive heart failure exacerbation and acute kidney injury. On this admission patient was admitted with complaints of swelling, worsening shortness of breath and volume overload. He is currently being diuresed. Serum creatinine was 1.78 on initial admission. It is at 2.1 today. Prior creatinine on 11/10/2019 was 1.25. The patient has been maintained on NURIS inhibitors at home. He denies use of any nonsteroidal anti-inflammatory agents. His blood pressure runs on the lower side and he is maintained on midodrine. I believe he was worked up for adrenal insufficiency on his previous admissions. Blood pressure this admission has been mostly around 107-110 mmHg systolic. Patient has an indwelling Sims catheter. It looks like he did have urine retention with a Sims catheter on initial placement showing 1000 mL of urine. Patient is maintained on Lasix 40 mg IV every 8 hours. NURIS inhibitors were discontinued today. Overall patient states he is feeling better and he is breathing better as well. PAST MEDICAL HISTORY: Significant for chronic kidney disease, hypertension, cardiomyopathy, history of [place], hypothyroidism, lower extremity venous stasis, skin cancer, hypothyroidism, atrial fibrillation, COPD. PAST SURGICAL HISTORY: Adenoidectomy, tonsillectomy, cataract surgery, skin cancer removal. SOCIAL HISTORY: Negative for smoking, drug abuse or alcohol abuse. MEDICATIONS: Medications prior to admission included Coumadin, aspirin, Synthroid, Lopressor, potassium, Lasix, midodrine, Aldactone, Zyloprim, Zestril. ALLERGIES: Include amiodarone, ampicillin, and Unasyn all of them cause rash/hives. REVIEW OF SYSTEMS: As per HPI. Other systems negative. EXAMINATION: Comfortable, awake, alert, oriented x3, not in any acute distress. Blood pressure was 110/67 heart rate 126 per minute he is afebrile examination of the heart S1, S2. Examination of the lungs, bilateral breath sounds are heard. Decreased breath sounds at the bases. Abdomen is soft, nontender, morbidly obese. Examination of the lower extremities shows chronic skin changes chronic edema bilaterally. [employer] exam grossly intact. LABS: Hemoglobin 14.8 g/dL, sodium 136, potassium 5.3, CO2 is 18, BUN 46, creatinine 2.1. Troponin 0.053. UA is not available this admission. ASSESSMENT: 1. Acute kidney injury, cardiorenal, currently being diuresed. Continue with IV Lasix. Agree with holding off on NURIS inhibitors secondary to hyperkalemia. Expect improvement in potassium with ongoing diuresis. 2. Metabolic acidosis associated with chronic kidney disease and acute kidney injury. I expect improvement with ongoing diuresis and possible development of metabolic alkalosis from diuretics. I would avoid sodium bicarb given his hypervolemic state. 3. CHF exacerbation acute on top of chronic, mostly systolic. 4. Cardiomyopathy, ejection fraction 20-25%. 5. Chronic kidney disease, baseline creatinine 1.2-1.3 mg/dL as of October 2019. Etiology nephrosclerosis. Check urinalysis from this admission. Previous UA has shown trace protein. 6. Urine retention, status post Sims catheter placement, 1000 mL of urine was obtained on placement of Sims catheter. Will continue with the Sims catheter for now. We can add Flomax as well. 7. Atrial fibrillation with RVR, heart rate around 126. Maintained on oral amiodarone. PLAN: Agree with holding NURIS inhibitors. Continue current dose of diuretics. Continue Sims catheter. Add Flomax and repeat labs in a.m. Check urinalysis. Thank you for this consultation. We will continue to follow the patient with you during his hospitalization. MMODL / IJN: [id number] /
[2020-09-08] MEDS: TAMSULOSIN 0.4 MG CAP.ER.24H PO SCH (17:35)
[2020-09-08] MEDS ORDERED: WARFARIN 5 MG TAB PO SCH (18:00)
[2020-09-08] MEDS ORDERED: WARFARIN 7.5 MG TAB PO ONE (18:00)
[2020-09-08 23:30] LABS: Amorphous Sediment,Urine Few /hpf; Appearance,Urine Turbid (Clear); Bacteria,Urine Rare /hpf; Bilirubin,Urine Negative (Negative); Blood,Urine Large (Negative); Color,Urine Dark Brown; Glucose,Urine (UA) Negative (Negative); Ketones,Urine Negative (Negative); Leukocyte Esterase,Urine Moderate (Negative); Nitrite,Urine Negative (Negative); Protein,Urine 1+ (Negative); RBC,Urine >182 /hpf (0-5); Specific Gravity,Urine 1.012 (1.001-1.035); Squamous Epithelial Cell,Urine 1 /hpf (0-4); Urobilinogen,Urine <2.0 mg/dL (<2.0); WBC,Urine 50 /hpf (0-5)
--- NOTE | 2020-09-08 23:31 | P.PN ---
Subjective Progress Note Date: 09/08/20 Principal diagnosis: Acute on chronic CHF with systolic dysfunction ejection fraction 2025% as per TTE Patient is a 64-year-old male with a known history of chronic atrial fibri llation on anticoagulation with warfarin, chronic CHF with systolic dysfunction, hypertension, hyperlipidemia, history of my, hypothyroidism, stage III CKD, bilateral lower extremity venous insufficiency/venous stasis and previous history of cellulitis and other medical problems presents to ER with complaints of shortness of breath worsening for the past 2-4 weeks. Patient was also having increased leg swelling. No complaints of chest pain. No nausea vomiting or abdominal pain or diarrhea. No fever no chills. Denied any dysuria hematuria. No headache or dizziness. Chest x-ray showed pulmonary vascular congestion and increased lung markings, possible CHF. EKG showed atrial fibrillation with ventricle rate elevated 90. Laboratory data showed WBC 8.7, hemoglobin 14.4, platelets 120 INR 1.8 Sodium 139 potassium 5.4 chloride 108 BUN 38 and creatinine 1.78 Troponin 0.050, 0.058 and 0.053 ProBNP 15489 COVID-19 PCR not detected. Today morning bladder scan showed thousand cc of urine noted. Straight cath 1 was done. 09/08/2020 Patient is able to sit in the chair comfortably. Breathing status is much improved today. Currently on oxygen via nasal cannula at 6 L high flow. Patient states that he feels better. I am still having bilateral leg swelling and also redness noted. 2D echocardiogram showed EF 20 to 25%. Patient is being continued on IV diuresis. Laboratory showed potassium level improved to 5.3. Sodium 136 and BUN 46 and creatinine 2.12 WBC increased to 21.6, hemoglobin 14.8 and platelets 117 Patient has been afebrile.Patient is able to void spontaneously. Current medications reviewed. Objective - Vital Signs Vital signs: Vital Signs Temp 97.7 F 09/08/20 23:03 Pulse 87 09/08/20 23:03 Resp 21 09/08/20 23:03 BP 99/41 09/08/20 23:03 Pulse Ox 95 09/08/20 23:03 Intake & Output 09/08/20 09/08/20 09/09/20 06:59 18:59 06:59 Intake Total 320 358 10 Output Total 420 375 50 Balance -100 -17 -40 Weight 168.3 kg Intake: IV 20 10 Invasive Line 1 20 Invasive Line 2 10 Oral 300 358 Output: Urine 420 375 50 Uretheral (Sims) 50 Other: Voiding Method Indwelling Catheter Indwelling Catheter Indwelling Catheter # Voids 1 # Bowel Movements 2 1 1 - Exam PHYSICAL EXAMINATION: Patient is lying in the bed comfortably, no acute distress, awake alert and oriented.. HEENT: Normocephalic. Neck is supple. Pupils reactive. Nostrils clear. Oral cavity is moist. Ears reveal no drainage. Neck reveals no JVD, carotid bruits, or thyromegaly. CHEST EXAMINATION: Trachea is central. Symmetrical expansion. Bibasilar diminished sounds and left minimal left basilar crackles. no wheezing.. CARDIAC: Normal S1, S2 with no gallops. No murmurs ABDOMEN: Soft. Bowel sounds normal. No organomegaly. No abdominal bruits. Extremities: 3+ bilateral pedal and chronic venostasis changes. redness and scattered small ulcerations noted. No clubbing or cyanosis Neurologically awake, alert, oriented x3 with well-coordinated movements. No focal deficits noted Skin: No rash or skin lesions. Psychiatric: Coperative. Nonsuicidal Musculoskeletal: No joint swelling or deformity. Normal range of motion. - Labs CBC & Chem 7: 09/08/20 06:50 09/08/20 06:50 Labs: Abnormal Lab Results - Last 24 Hours (Table) 09/08/20 09/08/20 09/08/20 Range/Units 06:50 06:50 06:50 WBC 21.6 H (3.8-10.6) k/uL RDW 16.5 H (11.5-15.5) % Plt Count 117 L (150-450) k/uL Neutrophils # 19.8 H (1.3-7.7) k/uL Lymphocytes # 0.5 L (1.0-4.8) k/uL Monocytes # 1.2 H (0-1.0) k/uL PT 16.2 H (9.0-12.0) sec INR 1.6 H (<1.2) Sodium 136 L (137-145) mmol/L Potassium 5.3 H (3.5-5.1) mmol/L Carbon Dioxide 18 L (22-30) mmol/L BUN 46 H (9-20) mg/dL Creatinine 2.12 H (0.66-1.25) mg/dL C-Reactive Protein (<1.0) mg/dL 09/08/20 Range/Units 06:50 WBC (3.8-10.6) k/uL RDW (11.5-15.5) % Plt Count (150-450) k/uL Neutrophils # (1.3-7.7) k/uL Lymphocytes # (1.0-4.8) k/uL Monocytes # (0-1.0) k/uL PT (9.0-12.0) sec INR (<1.2) Sodium (137-145) mmol/L Potassium (3.5-5.1) mmol/L Carbon Dioxide (22-30) mmol/L BUN (9-20) mg/dL Creatinine (0.66-1.25) mg/dL C-Reactive Protein 7.8 H (<1.0) mg/dL Microbiology - Last 24 Hours (Table) 09/07/20 17:45 Gram Stain - Preliminary Leg - Right Wound Culture - Preliminary Beta Hemolytic Strep Group G 09/07/20 17:45 Anaerobic Culture - Preliminary Leg - Right Assessment and Plan Assessment: Acute on chronic CHF with systolic dysfunction ejection fraction 2025% as per TTE Chronic atrial fibrillation on anticoagulation with warfarin Subtherapeutic Level Mildly elevated troponin level likely due to demand ischemia with CHF and also complaining CK D Acute kidney injury likely due to diuresis. Possible cardiorenal. Chronic kidney disease stage III Hyperkalemia due to acute kidney injury and potassium supplementation at home. Hypertension Hyperlipidemia History of [place] Morbid obesity BMI 47.3 DVT prophylaxis. Patient is already on Coumadin Plan: Patient will be continued on Lasix 40 mg every 12, increased to every 8 hourly as per cardiology recommendations. Monitor ABDIRASHID's and daily weights. Patient was on BiPAP initially. Currently high flow oxygen.transitioned to oxygen via nasal cannula. Titrate down to room air. Continue with metoprolol. lisinopril and Aldactone is on hold. Monitor repeat potassium level. Continue to monitor renal function. Coumadin dosing. Cardiology is on board. Patient may need biventricular ICD placement as per cardiology evaluation. Continue to follow closely. Time with Patient: Greater than 30
[2020-09-09] MEDS: FUROSEMIDE 10 MG/ML 4 ML VIAL IV SCH ×3 (02:23→17:59)
[2020-09-09] MEDS: CEFEPIME 2 GM in SODIUM CHLORIDE 0.9% 100 ML IVPB SCH (05:44)
[2020-09-09] MEDS: LEVOTHYROXINE 88 MCG TAB PO SCH (05:44)
[2020-09-09 08:39] LABS: INR 1.6 (<1.2)
[2020-09-09] MEDS: IPRATROPIUM-ALBUTEROL 3 ML NEB INHALATION SCH ×4 (08:44→21:03)
[2020-09-09] MEDS: METOPROLOL TARTRATE 50 MG TAB PO SCH (09:11)
[2020-09-09] MEDS: AMIODARONE 200 MG TAB PO SCH ×2 (09:11→21:15)
[2020-09-09] MEDS: ASPIRIN 81 MG PO SCH (09:11)
[2020-09-09 10:04] LABS: Calcium 9.2 mg/dL (8.4-10.2); Magnesium 2.3 mg/dL (1.6-2.3); Potassium 4.5 mmol/L (3.5-5.1)
--- NOTE | 2020-09-09 10:17 | CONS ---
CONSULTATION DATE OF CONSULTATION: 09/08/2020 REASON FOR CONSULTATION: Right lower extremity wound. HISTORY OF PRESENT ILLNESS: The patient is a 64-year-old male with past medical history significant for atrial fibrillation, heart failure and coronary disease, along with renal insufficiency. The patient presented to the ER at [facility] on 06 of September for evaluation of increasing shortness of breath. He has been getting worse for 2 weeks before presentation to the hospital. The patient denies having any chest pain or cough. He did have significant swelling to the lower extremity. Did have some superficial ulceration and weeping edema, especially in the right leg than the left leg. The patient denies significant pain to the lower extremity. No significant redness or any foul-smelling drainage. Patient on presentation to the hospital was afebrile and no fever has been recorded. Subsequently the patient did have a normal white count on admission, however, the white count up to 21.6 today. Local culture has been obtained from the leg wound. Infection was consulted for further management, question concerning for the right lower extremity. REVIEW OF SYSTEMS: Positive points have been mentioned in HPI. Rest of systems are negative. PAST MEDICAL HISTORY: Atrial fibrillation, coronary artery disease, heart failure, hypertension, hyperlipidemia, PA, pneumonia and bronchitis. PAST SURGICAL HISTORY: Adenoidectomy, tonsillectomy, bilateral cataract removal. SOCIAL HISTORY: No history of smoking, drinking or drug use. FAMILY HISTORY: Father with history of CVA. Mother history of cancer unknown type. ALLERGIES: Unasyn and amiodarone. MEDICATIONS: The patient is currently on DuoNeb, Zyloprim, midodrine, aspirin, Lasix, Synthroid, Lopressor, Coumadin, Narcan, Flomax. PHYSICAL EXAMINATION: Blood pressure is 110/67, pulse of 126, temperature 98.1, he is 92% on 6 L nasal cannula. GENERAL: Patient is a middle-aged male up in the chair in no distress. HEENT: Examination shows no pallor or scleral icterus. Oral mucous membrane is dry. NECK: Trachea midline. LUNGS: Unlabored breathing, decreased breath sounds in the base, with no wheeze. HEART: S1, S2. Regular rate and rhythm. ABDOMEN: Soft, no tenderness. No rigidity. EXTREMITIES: Lower extremities did have significant swelling and weeping edema, minimal redness, slight foam swelling mostly from the retained drainage. NEUROLOGIC: Patient is awake, alert, oriented and affect normal. LABS: Hemoglobin 14, white count 21.6, BUN of 46, creatinine is 2.12. DIAGNOSTIC IMPRESSION AND PLAN: 1. Patient with bilateral lower extremity swelling, likely from an underlying ( ) from his cardiac condition, and this patient did have superficial ulceration weeping edema. He did have an elevated white count today up to 21,000, some superficial ulcers. Gram stain is showing gram-negative as well as gram-positive with concern for possible cellulitis not entirely excluded. 2. Patient to have ( ) antibiotics therapy. PLAN: 1. Local wound care to the right leg wound with dry Aquacel dressing and Hermes wrap from just above the toe to below the knee. 2. We will obtain blood cultures in view of significant elevated white count which has been requested and will empirically add cefepime 2 grams q.12. 3. We will follow on his clinical condition and further adjust medication if needed. Thank you for this consultation. Will follow this patient along with you. MMODL / IJN: [id number] /
--- NOTE | 2020-09-09 10:55 | P.PN ---
Subjective HISTORY OF PRESENTING ILLNESS This is a pleasant 64-year-old male past medical history significant for chronic persistent atrial fibrillation on warfarin, dilated cardiomyopathy, chronic systolic heart failure, hypertension, COPD, dyslipidemia and chronic kidney disease. He follows in the office with Dr. Goodwin. We have been asked to see in consultation for heart failure. He presented to the hospital with a 3 week history of worsening shortness of breath, lower extremity edema and weight gain. He states his activity level has been decreased due to his breathing and he has gained 40lbs in the previous 6 months. He saw his PCP yesterday and was sent in for diuresis. He is seen and examined sitting up in bed. He is tachyneic at rest but maintaining his oxygen saturations. He has been started on IV diuretics. 09/09/2020 Pt seen and examined sitting up in the recliner in no acute distress. His breathing is still labored but he feels mildly better. He denies chest pain, dizziness or palpitations. Blood pressure 83/42 heart rate 87 afebrile and maintaining oxygen saturation on nasal cannula. Urine output 460 ml for the previous 24 hrs. Laboratory data reviewed, INR 1.6, sodium 134, potassium 4.5, creatinine 3.28 and magnesium 2.3. Telemetry tracings reveal persistent atrial fibrillation with controlled ventricular rate and an episode of non-sustained VT. PHYSICAL EXAMINATION CONSTITUTIONAL: Mild respiratory distress. Morbidly obese. HEENT: Head is normocephalic. Pupils are equal, round. Sclerae anicteric. Mucous membranes of the mouth are moist. No JVD. No carotid bruit. CHEST EXAMINATION: Bibasilar rales, expiratory wheezes, no rales. No chest wall tenderness is noted on palpation or with deep breathing. HEART EXAMINATION: Irregular rate and rhythm. S1, S2 heard. No murmurs, gallops or rub. EXTREMITIES: 2+ peripheral pulses, 2+ bilateral lower extremity pitting edema with erythema and no calf tenderness. ASSESSMENT Acute on chronic systolic heart failure Chronic persistent atrial fibrillation on long-term anticoagulation with variable ventricular rates Hypertension Hyperkalemia Thrombocytopenia Troponin leak not indicative of myocardial ischemia, likely secondary to a combination of acute heart failure and chronic kidney disease Chronic kidney disease COPD Morbid obesity, BMI 47 PLAN Continue IV diuresis. Discussed low urine output with Dr. Paz, advised dobutamine infusion for renal perfusion. Follow renal function and electrolytes in the morning. Request pulmonary evaluation and recommendations. Prognosis guarded. Nurse Practitioner note has been reviewed, I agree with a documented findings and plan of care. Patient was seen and examined. Objective - Vital Signs Vital signs: Vital Signs Temp 97.3 F L 09/09/20 08:00 Pulse 87 09/09/20 08:44 Resp 18 09/09/20 08:00 BP 83/42 09/09/20 08:00 Pulse Ox 90 L 09/09/20 08:44 Intake & Output 09/08/20 09/09/20 09/09/20 18:59 06:59 18:59 Intake Total 358 30 190 Output Total 375 85 Balance -17 -55 190 Weight 168.7 kg Intake: IV 30 10 Invasive Line 2 30 10 Oral 358 180 Output: Urine 375 85 Uretheral (Sims) 85 Other: Voiding Method Indwelling Catheter Indwelling Catheter Indwelling Catheter # Voids 1 # Bowel Movements 1 1 - Labs CBC & Chem 7: 09/08/20 06:50 09/09/20 09:08 Labs: Abnormal Lab Results - Last 24 Hours (Table) 09/08/20 09/08/20 09/08/20 Range/Units 06:50 06:50 21:00 Plt Count 117 L (150-450) k/uL Neutrophils # 19.8 H (1.3-7.7) k/uL Lymphocytes # 0.5 L (1.0-4.8) k/uL Monocytes # 1.2 H (0-1.0) k/uL PT (9.0-12.0) sec INR (<1.2) Sodium (137-145) mmol/L BUN (9-20) mg/dL Creatinine (0.66-1.25) mg/dL Glucose (74-99) mg/dL C-Reactive Protein 7.8 H (<1.0) mg/dL Urine Protein 1+ H (Negative) Urine Blood Large H (Negative) Ur Leukocyte Esterase Moderate H (Negative) Urine RBC >182 H (0-5) /hpf Urine WBC 50 H (0-5) /hpf Amorphous Sediment Few H (None) /hpf Urine Bacteria Rare H (None) /hpf 09/09/20 09/09/20 Range/Units 07:19 09:08 Plt Count (150-450) k/uL Neutrophils # (1.3-7.7) k/uL Lymphocytes # (1.0-4.8) k/uL Monocytes # (0-1.0) k/uL PT 16.0 H (9.0-12.0) sec INR 1.6 H (<1.2) Sodium 134 L (137-145) mmol/L BUN 64 H (9-20) mg/dL Creatinine 3.28 H (0.66-1.25) mg/dL Glucose 107 H (74-99) mg/dL C-Reactive Protein (<1.0) mg/dL Urine Protein (Negative) Urine Blood (Negative) Ur Leukocyte Esterase (Negative) Urine RBC (0-5) /hpf Urine WBC (0-5) /hpf Amorphous Sediment (None) /hpf Urine Bacteria (None) /hpf Microbiology - Last 24 Hours (Table) 09/08/20 21:00 Urine Culture - Preliminary Urine,Voided 09/07/20 17:45 Gram Stain - Preliminary Leg - Right Wound Culture - Preliminary Beta Hemolytic Strep Group G
[2020-09-09 10:58] LABS: Anisocytosis Slight; Basophils % (A) 0 %; Eosinophils % (A) 0 %; HCT 41.4 % (39.0-53.0); HGB 13.1 gm/dL (13.0-17.5); Hypochromasia Slight; Lymphocytes # (A) 0.7 k/uL (1.0-4.8); Lymphocytes % (A) 6 %; MCH 29.8 pg (25.0-35.0); MCHC 31.6 g/dL (31.0-37.0); MCV 94.3 fL (80.0-100.0); Mean Platelet Volume 15.5; Monocytes # (A) 0.7 k/uL (0-1.0); Monocytes % (A) 6 %; Neutrophils # (A) 10.5 k/uL (1.3-7.7); Neutrophils % (A) 87 %; RBC 4.39 m/uL (4.30-5.90); RDW 16.6 % (11.5-15.5); WBC 12.1 k/uL (3.8-10.6)
--- NOTE | 2020-09-09 12:44 | P.CNPUL ---
History of Present Illness Consult date: 09/09/20 Reason for consult: dyspnea, hypoxemia History of present illness: This is a 64-year-old male patient, morbidly obese with biventricular failure, chronic systolic heart failure, chronic kidney disease, chronic itchy fibrillation and various other medical problems and comorbidities as will be discussed with him. The patient comes in with significant weight gain, volume overload, increased lower extremity edema, 1 in lower extremities more so on the left along with erythema and several episodes of the left lower extremity. The patient also has vesicles that are filled with fluid secondary to her increased subcutaneous emphysema mainly over the right lower flank area, and pressure points. For that reason, the patient was hospitalized. The patient was fine to be hypoxic. He is not known to have any home oxygen. He was placed on oxygen currently is up to 15 L of oxygen by nasal cannula. No history of COPD most of smoking. His chest x-ray was consistent with cardiac regular and pulmonary edema. EKG was consistent with chronic atrial fibrillation with a LBBB pattern. The patient's white cell count was as high as 21.6 . The patient had a proBNP level of 17,004 100. Troponins were 0.053 respectively. Creatinine initially was at 1.7. The patient was initially started on a combination of diuretics and antibiotics. The patient was started on IV cefepime. The culture from the wound is positive for strep. White cell count is improving. Nevertheless, the patient developed some worsening renal function. The patient developed an acute on top of chronic kidney disease. The patient was accordingly started on dobutamine today. The echo showing an ejection fraction of 20-25%. RV severely dilated. LV is also moderately dilated. PA pressure was 42 mmHg. Review of Systems CONSTITUTIONAL: Denies fever or chills. CARDIOVASCULAR: Complains of shortness of breath, orthopnea and PND. Denies chest pain or palpitations. RESPIRATORY: Denies cough. Chronic exertional dyspnea, orthopnea, no cough. No pleurisy. No hemoptysis. GASTROINTESTINAL: Denies abdominal pain, diarrhea, constipation, nausea or vomiting. MUSCULOSKELETAL: Denies myalgias. NEUROLOGIC: Denies numbness, tingling, headacbe or weakness. ENDOCRINE: Denies fatigue, weight change, polydipsia or polyurina. GENITOURINARY: Denies burning, hematuria or urgency with micturation. HEMATOLOGIC: Denies history of anemia or bleeding. Skin chronic edema lower extremities bilaterally, chronic wound ulceration, areas of cellulitis in the left lower extremity. Areas of skin blisters and vesicles formation due to extensive fluid retention. Past Medical History Past Medical History: Atrial Fibrillation, Coronary Artery Disease (CAD), Cancer, Heart Failure, COPD, Hyperlipidemia, Hypertension, Myocardial Infarction (MA), Pneumonia, Renal Disease, Thyroid Disorder Additional Past Medical History / Comment(s): Bronchitis, possible MA per EKG, hypothyroid, CKD stage III, bilateral lower extremity venous insufficiency/chronic venous stasis/past cellulitis bilateral lower legs, skin cancer with removals. Last Myocardial Infarction Date:: unkn History of Any Multi-Drug Resistant Organisms: None Reported Past Surgical History: Adenoidectomy, Tonsillectomy Additional Past Surgical History / Comment(s): Bilateral cataract removals/lens implants, skin cancer removals L hand/L shoulder/L ear, midline IV-since removed. Past Anesthesia/Blood Transfusion Reactions: No Reported Reaction Past Psychological History: No Psychological Hx Reported Additional Psychological History / Comment(s): Pt resides with a roomate. He is retired. He uses no assistive device. He does not drive often anymore, his roomate takes him where he needs to go. Smoking Status: Never smoker Past Alcohol Use History: None Reported Past Drug Use History: None Reported - Past Family History Father Family Medical History: CVA/TIA Additional Family Medical History / Comment(s): Father at the age of 90yrs. Mother Family Medical History: Cancer Additional Family Medical History / Comment(s): Mother from cancer (unknown type) at age 80s Medications and Allergies Home Medications Medication Instructions Recorded Confirmed Type Warfarin Sodium 5 mg PO SUMOWETHSA 06/05/19 09/06/20 History Aspirin 81 mg PO DAILY chew 07/08/19 09/06/20 Rx Levothyroxine Sodium [Euthyrox] 88 mcg PO SUTUTHSA 11/01/19 09/06/20 History Metoprolol Tartrate [Lopressor] 50 mg PO BID 11/01/19 09/06/20 History Warfarin [Coumadin] 7.5 mg PO TUFR 11/01/19 09/06/20 History Potassium Chloride ER [K-Dur 20] 20 meq PO BID #0 11/10/19 09/06/20 Rx Furosemide [Lasix] 20 mg PO TID 09/06/20 09/06/20 History Levothyroxine Sodium [Euthyrox] 100 mcg PO MOWEFR 09/06/20 09/06/20 History Midodrine [ProAmatine] 5 mg PO TID 09/06/20 09/06/20 History Spironolactone [Aldactone] 25 mg PO DAILY@1200 09/06/20 09/06/20 History allopurinoL [Zyloprim] 100 mg PO DAILY@1200 09/06/20 09/06/20 History lisinopriL [Zestril] 2.5 mg PO DAILY 09/06/20 09/06/20 History Allergies Allergy/AdvReac Type Severity Reaction Status Date / Time amiodarone Allergy Rash/Hives Verified 09/06/20 19:11 ampicillin [From Unasyn] Allergy Rash/Hives Verified 09/06/20 19:11 sulbactam [From Unasyn] Allergy Rash/Hives Verified 09/06/20 19:11 Physical Exam Vitals: Vital Signs Temp Pulse Pulse Resp BP BP Pulse Ox 09/09/20 08:44 87 90 L 09/09/20 08:00 97.3 F L 76 18 83/42 95 09/09/20 04:00 97.7 F 91 20 100/49 96 09/09/20 02:19 109/89 09/09/20 01:36 90/46 09/09/20 01:20 90 90/52 09/09/20 01:15 91 73/48 09/09/20 01:02 87 19 09/09/20 00:57 92 83/42 09/09/20 00:40 88 19 78/49 92 L 09/08/20 23:03 97.7 F 87 21 99/41 95 09/08/20 21:45 72 09/08/20 21:35 69 09/08/20 20:00 104 H 22 09/08/20 19:41 97.5 F L 104 H 22 95/51 94 L 09/08/20 16:22 81 09/08/20 16:12 98 95 09/08/20 16:00 97.9 F 111 H 21 104/59 95 09/08/20 14:00 74 20 Intake and Output 09/08/20 09/09/20 09/09/20 22:59 06:59 14:59 Intake Total 250 20 190 Output Total 225 35 Balance 25 -15 190 Intake: IV 10 20 10 Invasive Line 2 10 20 10 Oral 240 180 Output: Urine 225 35 Uretheral (Sims) 50 35 Other: Voiding Method Indwelling Catheter Indwelling Catheter Indwelling Catheter # Voids 1 # Bowel Movements 1 1 Weight 168.7 kg GENERAL EXAM: Sleepy but arousable, obese white male, on oxygen at 15 L per minute nasal cannula. The patient also has a bedside BiPAP at a pressure of 10/5. Patient is morbidly obese. The patient has a BMI of 56.5. HEAD: Normocephalic/atraumatic. EYES: Normal reaction of pupils, equal size. Conjunctiva pink, sclera white. NOSE: Clear with pink turbinates. THROAT: No erythema or exudates. The patient has a metabolic live 4 with significant crowding of the posterior oropharynx. NECK: No masses, no JVD, no thyroid enlargement, no adenopathy. CHEST: No chest wall deformity. Symmetrical expansion. Generalized macular rash on chest, abdomen, back and arms LUNGS: very diminished breath sounds over left chest, crackles over right lower lobe CVS: Irregular rate and rhythm, distant S1 and S2, no gallops, no murmurs, no rubs ABDOMEN: Soft, nontender, obese with macular rash all over the old abdomen. No hepatosplenomegaly, normal bowel sounds, no guarding or rigidity. EXTREMITIES: No clubbing, extensive edema involving bilateral lower extremities with cellulitis redness and tenderness left greater than right, onychomycosis, dry cracked skin on bilateral soles, no cyanosis, 1+ pulses and upper and lower extremities. There is obvious that her lites of the left lower extremity. MUSCULOSKELETAL: Muscle strength and tone normal. SPINE: No scoliosis or deformity SKIN: Generalized macular rash on chest abdomen and back CENTRAL NERVOUS SYSTEM: Alert and oriented -3. No focal deficits, tone is normal in all 4 extremities. PSYCHIATRIC: Alert and oriented -3. Appropriate affect. Intact judgment and insight. Results - Laboratory Findings CBC and BMP: 09/09/20 09:08 09/09/20 09:08 PT/INR, D-dimer PT 16.0 sec (9.0-12.0) H 09/09/20 07:19 INR 1.6 (<1.2) H 09/09/20 07:19 Abnormal lab findings: Abnormal Labs 09/06/20 09/06/20 09/06/20 18:01 18:01 18:01 WBC MCHC RDW 16.3 H Plt Count 120 L Neutrophils # Lymphocytes # 0.8 L Monocytes # PT 17.4 H INR 1.8 H Sodium Potassium 5.4 H Chloride 108 H Carbon Dioxide 20 L BUN 38 H Creatinine 1.78 H Glucose 107 H Total Bilirubin 1.8 H Troponin I C-Reactive Protein Urine Protein Urine Blood Ur Leukocyte Esterase Urine RBC Urine WBC Amorphous Sediment Urine Bacteria 09/06/20 09/06/20 09/07/20 18:01 21:11 00:21 WBC MCHC RDW Plt Count Neutrophils # Lymphocytes # Monocytes # PT INR Sodium Potassium Chloride Carbon Dioxide BUN Creatinine Glucose Total Bilirubin Troponin I 0.050 H* 0.058 H* 0.053 H* C-Reactive Protein Urine Protein Urine Blood Ur Leukocyte Esterase Urine RBC Urine WBC Amorphous Sediment Urine Bacteria 09/07/20 09/07/20 09/07/20 06:12 06:12 07:10 WBC MCHC 30.9 L RDW 16.6 H Plt Count Neutrophils # Lymphocytes # 0.8 L Monocytes # PT 16.8 H INR 1.7 H Sodium Potassium 5.9 H Chloride Carbon Dioxide 21 L BUN 38 H Creatinine 1.79 H Glucose Total Bilirubin Troponin I C-Reactive Protein Urine Protein Urine Blood Ur Leukocyte Esterase Urine RBC Urine WBC Amorphous Sediment Urine Bacteria 09/07/20 09/08/20 09/08/20 16:09 06:50 06:50 WBC 21.6 H MCHC RDW 16.5 H Plt Count 117 L Neutrophils # 19.8 H Lymphocytes # 0.5 L Monocytes # 1.2 H PT INR Sodium 136 L Potassium 5.4 H 5.3 H Chloride Carbon Dioxide 18 L BUN 46 H Creatinine 2.12 H Glucose Total Bilirubin Troponin I C-Reactive Protein Urine Protein Urine Blood Ur Leukocyte Esterase Urine RBC Urine WBC Amorphous Sediment Urine Bacteria 09/08/20 09/08/20 09/08/20 06:50 06:50 21:00 WBC MCHC RDW Plt Count Neutrophils # Lymphocytes # Monocytes # PT 16.2 H INR 1.6 H Sodium Potassium Chloride Carbon Dioxide BUN Creatinine Glucose Total Bilirubin Troponin I C-Reactive Protein 7.8 H Urine Protein 1+ H Urine Blood Large H Ur Leukocyte Esterase Moderate H Urine RBC >182 H Urine WBC 50 H Amorphous Sediment Few H Urine Bacteria Rare H 09/09/20 09/09/20 09/09/20 07:19 09:08 09:08 WBC 12.1 H MCHC RDW 16.6 H Plt Count Neutrophils # Lymphocytes # Monocytes # PT 16.0 H INR 1.6 H Sodium 134 L Potassium Chloride Carbon Dioxide BUN 64 H Creatinine 3.28 H Glucose 107 H Total Bilirubin Troponin I C-Reactive Protein Urine Protein Urine Blood Ur Leukocyte Esterase Urine RBC Urine WBC Amorphous Sediment Urine Bacteria - Diagnostic Findings Chest x-ray: image reviewed Assessment and Plan Plan: #1. Acute hypoxemic respiratory failure related to acute exacerbation of systolic CHF. In fact the patient has biventricular failure. The patient has LV dysfunction with an ejection fraction of 20-25% in addition to IV failure. Has extensive anasarca and fluid overload. Nevertheless, the patient is also having issues with cellulitis of left lower extremity and acute on chronic kidney injury with diminished urine output. #2. bilateral lower extremity cellulitis, left greater than right with extensive redness, swelling and tenderness involving lower extremities, ID is on the case and the patient is receiving local wound care and the patient is on broad- spectrum antibiotics IV cefepime. #3. Acute on chronic kidney disease, likely secondary to diuretics and cardiorenal factors #4. Leukocytosis, improving and the white cell count is 21 #5. Chronic atrial fibrillation with an LBBB pattern #6. Morbid obesity with features of obstructive sleep apnea. BMI is a 56.5 #7. Hypertension #8. Hyperlipidemia #9. Chronic lower extremity edema/wounds/venous stasis with episodic cellulitis #10. Coronary artery disease and ischemic cardiomyopathy with EF of less than 20% mild MR, mild TR, severe right ventricular and moderate left atrial enlargement and right-sided pressures of 42 mmHg, #11. Chronic atrial fibrillation #12. Hypothyroidism #13. Morbid obesity Plan Continue dobutamine to augment cardiac output IV Lasix 40 mg every 8 hours IV cefepime and monitor his I's of the lower extremity. Keep the legs elevated and appropriate dressing and wraps Amiodarone loading and maintenance anticoagulation with warfarin and the patient would have the PT/INRmonitored Continue utilizing BiPAP overnight Wean FiO2 as tolerated currently on 15 L. May benefit also from airvo should there be any worsening in her oxygenation We'll continue to follow make further recommendations based on his progress. Prognosis poor baseline above-mentioned comorbidities. We'll continue to follow up this patient along with cardiology and nephrology.
[2020-09-09] MEDS: DOBUTamine DRIP 500 MG in DEXTROSE/WATER 1 250ML.BAG IV SCH (12:50)
[2020-09-09] MEDS: allopurinoL 100 MG TAB PO SCH (12:50)
[2020-09-09 12:59] LABS: Platelet Count 93 k/uL (150-450)
--- NOTE | 2020-09-09 13:21 | PN ---
PROGRESS NOTE Patient is seen for followup for acute kidney injury, mostly cardiorenal. However, renal function worsened overnight with significant drop in urine output. Patient's Sims catheter was flushed, but urine output did not improve. A 24 hour output was only 460 mL. The patient's blood pressure has been slowly trending down. Most recently, it was 90/46, and it had been as low as 73 mmHg systolic. PHYSICAL EXAMINATION: On examination today, patient is sitting up in a bedside chair, comfortable. Denies any significant complaints. Blood pressure this morning 83/42, heart rate 76 per minute, he is afebrile. Examination of the heart S1, S2. Examination of the lungs, decreased breath sounds at the bases. Abdomen is soft, nontender. Examination of lower extremities shows chronic skin changes, chronic edema bilaterally. Abdomen is soft and obese. LAB: Show sodium of 134, potassium 4.5, BUN 64, serum creatinine 3.28, hemoglobin 13.1 g/dL. ASSESSMENT: 1. Acute kidney injury mostly acute tubular necrosis, secondary to hypotension and element of cardiorenal syndrome present initially. I will add dobutamine. Discussed with Cardiology. They are agreeable. 2. Pyuria with urine culture currently pending. 3. Hyperkalemia associated with acute kidney injury, currently improved. 4. Severe cardiomyopathy, ejection fraction 20-25%. 5. Chronic kidney disease with previous creatinine as low as 1.2-1.3 mg/dL as of October 2019. 6. Cardiomyopathy, ejection fraction 20-25%. 7. Urine retention, status post Sims catheter placement. Initial urine was about 1000 mL when Sims catheter was initially placed. PLAN: Add dobutamine. Continue Sims catheter and continue diuretics. Avoid any other nephrotoxic agents. MMODL / IJN: [id number] /
[2020-09-09] MEDS: CEFEPIME 1 GM in SODIUM CHLORIDE 0.9% 50 ML IVPB SCH (17:59)
[2020-09-09] MEDS ORDERED: WARFARIN 7.5 MG TAB PO ONE (18:00)
[2020-09-09] MEDS: TAMSULOSIN 0.4 MG CAP.ER.24H PO SCH (18:00)
--- NOTE | 2020-09-09 19:01 | PN ---
PROGRESS NOTE DATE OF SERVICE: 09/09/2020 REASON FOR FOLLOWUP: 1. Bilateral lower extremity venostasis ulcer. 2. Elevated white count. INTERVAL HISTORY: Patient has been afebrile. He is breathing comfortably. Denies any chest pain. No cough. No abdominal pain. lower extremity. EXAMINATION: Blood pressure is 86/47, pulse of 78, temperature 98. He is 94% on 6 L nasal cannula. General description is a middle-aged male up in the chair in no distress. Respiratory system: Unlabored breathing with decreased breath sounds in the base. No wheeze. Heart S1, S2. Regular rate and rhythm. Abdomen soft. lower extremities currently wrapped up. No drainage. LABS: Hemoglobin 13.1, white count 24.1. BUN of 64, creatinine 3.28. Local culture with DIAGNOSTIC IMPRESSION AND PLAN: Patient with bilateral lower extremity ulcers and possible cellulitis. White count responded to cefazolin to continue. Local care with dry Aquacel silver dressing and Hermes wrap. Continue supportive care. MMODL / IJN: [id number] /
[2020-09-09 23:54] LABS: Glucose,Whole Blood 83 mg/dL (75-99)
[2020-09-10] MEDS: FUROSEMIDE 10 MG/ML 4 ML VIAL IV SCH (00:19)
[2020-09-10] MEDS: NOREPINEPHRINE 4 MG in SODIUM CHLORIDE 0.9% 250 ML IV SCH ×4 (00:59→22:04)
[2020-09-10] MEDS: METOPROLOL TARTRATE 50 MG TAB PO SCH ×3 (01:58→20:11)
[2020-09-10 05:44] LABS: Prothrombin Time 19.2 sec (9.0-12.0)
[2020-09-10 05:46] LABS: Anisocytosis Slight; Basophils % (A) 0 %; Eosinophils # (A) 0.1 k/uL (0-0.7); Eosinophils % (A) 1 %; HCT 43.8 % (39.0-53.0); HGB 13.6 gm/dL (13.0-17.5); Hypochromasia Slight; Lymphocytes # (A) 0.8 k/uL (1.0-4.8); Lymphocytes % (A) 7 %; MCH 29.6 pg (25.0-35.0); MCV 95.6 fL (80.0-100.0); Mean Platelet Volume 13.6; Monocytes # (A) 0.7 k/uL (0-1.0); Monocytes % (A) 6 %; Neutrophils # (A) 9.4 k/uL (1.3-7.7); Neutrophils % (A) 84 %; RBC 4.58 m/uL (4.30-5.90); RDW 16.8 % (11.5-15.5); WBC 11.2 k/uL (3.8-10.6)
[2020-09-10 05:47] LABS: Calcium 8.7 mg/dL (8.4-10.2); Potassium 4.6 mmol/L (3.5-5.1)
[2020-09-10] MEDS: LEVOTHYROXINE 100 MCG TAB PO SCH (06:18)
[2020-09-10 06:21] LABS: Platelet Count 97 k/uL (150-450)
[2020-09-10] MEDS: CEFEPIME 1 GM in SODIUM CHLORIDE 0.9% 50 ML IVPB SCH ×2 (06:38→16:55)
[2020-09-10] MEDS: DOBUTamine DRIP 500 MG in DEXTROSE/WATER 1 250ML.BAG IV SCH ×2 (06:38→19:32)
[2020-09-10] MEDS: IPRATROPIUM-ALBUTEROL 3 ML NEB INHALATION SCH ×4 (08:18→19:32)
--- NOTE | 2020-09-10 08:46 | XR ---
EXAMINATION TYPE: XR chest 1V portable DATE OF EXAM: 09/10/2020 COMPARISON: 09/08/2020 INDICATION: Fluid overload TECHNIQUE: Single frontal view of the chest is obtained. FINDINGS: The heart size is markedly enlarged. The pulmonary vasculature is upper limits of normal. This is slightly improved from comparison. There is improving alveolar infiltrate. IMPRESSION: 1. Marked cardiomegaly. 2. Resolving volume overload
[2020-09-10] MEDS: FUROSEMIDE 100 MG in SODIUM CHLORIDE 0.9% 90 ML IV SCH ×2 (08:53→16:55)
[2020-09-10] MEDS: AMIODARONE 200 MG TAB PO SCH ×2 (08:53→20:11)
[2020-09-10] MEDS: ASPIRIN 81 MG PO SCH (08:54)
[2020-09-10] MEDS ORDERED: PHYTONADIONE 5 MG in SODIUM CHLORIDE 0.9% 50 ML IVPB STA (09:13)
--- NOTE | 2020-09-10 09:15 | P.PN ---
Subjective Progress Note Date: 09/10/20 This is a 64-year-old male patient, morbidly obese with biventricular failure, chronic systolic heart failure, chronic kidney disease, chronic itchy fibrillation and various other medical problems and comorbidities as will be discussed with him. The patient comes in with significant weight gain, volume overload, increased lower extremity edema, 1 in lower extremities more so on the left along with erythema and several episodes of the left lower extremity. The patient also has vesicles that are filled with fluid secondary to her increased subcutaneous emphysema mainly over the right lower flank area, and pressure points. For that reason, the patient was hospitalized. The patient was fine to be hypoxic. He is not known to have any home oxygen. He was placed on oxygen currently is up to 15 L of oxygen by nasal cannula. No history of COPD most of smoking. His chest x-ray was consistent with cardiac regular and pulmonary edema. EKG was consistent with chronic atrial fibrillation with a LBBB pattern. The patient's white cell count was as high as 21.6 . The patient had a proBNP level of 17,004 100. Troponins were 0.053 respectively. Creatinine initially was at 1.7. The patient was initially started on a combination of diuretics and antibiotics. The patient was started on IV cefepime. The culture from the wound is positive for strep. White cell count is improving. Nevertheless, the patient developed some worsening renal function. The patient developed an acute on top of chronic kidney disease. The patient was accordingly started on dobutamine today. The echo showing an ejection fraction of 20-25%. RV severely dilated. LV is also moderately dilated. PA pressure was 42 mmHg. On 09/10/2020, I'm seeing the patient for a follow-up. Overnight, the patient got transferred to the intensive care unit as the patient was having episodes of hypotension and his systolic blood pressure was dropping in the mid 70s. Note that the patient was being treated with a combination of dobutamine and Lasix. I had to bring him to the intensive care unit and the patient was started on levo fed for hemodynamic support. Is currently on levo fed running at 0.04 mcg/kg per minute. Chest x-ray still showing cardiomegaly. Clinically he does have some edema lower extremities bilaterally and also edema on his flanks and hips area. He is also being treated for this unless of the left lower extremity. This morning, he remains on dobutamine at 2.5 Jc respiratory per minute. Remains on norepinephrine infusion at low dose. He is still on Lasix drip running at 10 mg an hour. An arterial line will be established for adequate blood pressure monitoring. He also benefit from the PICC line. He remains on IV cefepime. White cell count is down to 11. His INR currently is at 2.0 and the patient has an underlying atrial fibrillation rhythm with a LBBB pattern. Creatinine is on the rise and is currently up to 3.84 with a BUN of 72. On examination, the cellulitis still present in the left lower extremity although the area and his left lower extremity is less erythematous. In addition, the patient is currently on BiPAP for respiratory support. BiPAP is running at a pressure of 10/5 cm of water with an FiO2 of 40%. He is quite interested the respirator and is able to generate adequate tidal volumes and no signs of any significant respiratory distress. No signs of any CO2 narcosis. Objective - Vital Signs Vital signs: Vital Signs Temp 97.3 F L 09/10/20 08:00 Pulse 75 09/10/20 08:31 Resp 23 09/10/20 08:30 BP 115/65 09/10/20 08:30 Pulse Ox 98 09/10/20 08:30 Intake & Output 09/09/20 09/10/20 09/10/20 18:59 06:59 18:59 Intake Total 440 284.890 95.018 Output Total 190 30 Balance 440 94.890 65.018 Weight 170.6 kg Intake: IV 20 Invasive Line 2 20 Intake, IV Titration 284.890 95.018 Amount DOBUTamine DRIP 500 mg In 225.223 Dextrose/Water 1 250ml. bag @ 2.5 MCG/KG/MIN 12. 653 mls/hr IV .[id number] [facility] Rx#:[id number] Norepinephrine 4 mg In 59.667 95.018 Sodium Chloride 0.9% 250 ml @ 0.05 MCG/KG/MIN 32. 137 mls/hr IV .[id number] [facility] Rx#:[id number] Oral 420 Output: Urine 190 30 Other: Voiding Method Indwelling Catheter Indwelling Catheter - Exam GENERAL EXAM: Sleepy but arousable, obese white male, on oxygen at 15 L per minute nasal cannula. The patient also has a bedside BiPAP at a pressure of 10/5. Patient is morbidly obese. The patient has a BMI of 56.5. HEAD: Normocephalic/atraumatic. EYES: Normal reaction of pupils, equal size. Conjunctiva pink, sclera white. NOSE: Clear with pink turbinates. THROAT: No erythema or exudates. The patient has a metabolic live 4 with significant crowding of the posterior oropharynx. NECK: No masses, no JVD, no thyroid enlargement, no adenopathy. CHEST: No chest wall deformity. Symmetrical expansion. Generalized macular rash on chest, abdomen, back and arms LUNGS: very diminished breath sounds over left chest, crackles over right lower lobe CVS: Irregular rate and rhythm, distant S1 and S2, no gallops, no murmurs, no rubs ABDOMEN: Soft, nontender, obese with macular rash all over the old abdomen. No hepatosplenomegaly, normal bowel sounds, no guarding or rigidity. EXTREMITIES: No clubbing, extensive edema involving bilateral lower extremities with cellulitis redness and tenderness left greater than right, onychomycosis, dry cracked skin on bilateral soles, no cyanosis, 1+ pulses and upper and lower extremities. There is obvious that her lites of the left lower extremity. MUSCULOSKELETAL: Muscle strength and tone normal. SPINE: No scoliosis or deformity SKIN: Generalized macular rash on chest abdomen and back CENTRAL NERVOUS SYSTEM: Alert and oriented -3. No focal deficits, tone is normal in all 4 extremities. PSYCHIATRIC: Alert and oriented -3. Appropriate affect. Intact judgment and insight. - Labs CBC & Chem 7: 09/10/20 05:12 09/10/20 05:12 Labs: Abnormal Lab Results - Last 24 Hours (Table) 09/09/20 09/09/20 09/10/20 Range/Units 09:08 09:08 05:12 WBC 12.1 H (3.8-10.6) k/uL RDW 16.6 H (11.5-15.5) % Plt Count 93 L (150-450) k/uL Neutrophils # 10.5 H (1.3-7.7) k/uL Lymphocytes # 0.7 L (1.0-4.8) k/uL PT 19.2 H (9.0-12.0) sec INR 2.0 H (<1.2) Sodium 134 L (137-145) mmol/L BUN 64 H (9-20) mg/dL Creatinine 3.28 H (0.66-1.25) mg/dL Glucose 107 H (74-99) mg/dL 09/10/20 09/10/20 Range/Units 05:12 05:12 WBC 11.2 H (3.8-10.6) k/uL RDW 16.8 H (11.5-15.5) % Plt Count 97 L (150-450) k/uL Neutrophils # 9.4 H (1.3-7.7) k/uL Lymphocytes # 0.8 L (1.0-4.8) k/uL PT (9.0-12.0) sec INR (<1.2) Sodium 133 L (137-145) mmol/L BUN 72 H (9-20) mg/dL Creatinine 3.84 H (0.66-1.25) mg/dL Glucose (74-99) mg/dL Microbiology - Last 24 Hours (Table) 09/07/20 17:45 Gram Stain - Preliminary Leg - Right Wound Culture - Preliminary Beta Hemolytic Strep Group G Gram Neg Bacilli 09/08/20 15:24 Blood Culture - Preliminary Blood No Growth after 24 hours 09/08/20 21:00 Urine Culture - Preliminary Urine,Voided Assessment and Plan Plan: #1. Acute hypoxemic respiratory failure related to acute exacerbation of systolic CHF. In fact the patient has biventricular failure. The patient has LV dysfunction with an ejection fraction of 20-25% in addition to IV failure. Has extensive anasarca and fluid overload. Nevertheless, the patient is also having issues with cellulitis of left lower extremity and acute on chronic kidney injury with diminished urine output. #2. bilateral lower extremity cellulitis, left greater than right with extensive redness, swelling and tenderness involving lower extremities, ID is on the case and the patient is receiving local wound care and the patient is on broad- spectrum antibiotics IV cefepime. #3. Acute on chronic kidney disease, likely secondary to diuretics and cardiorenal factors #4. Leukocytosis, improving and the white cell count is 11.2 #5. Chronic atrial fibrillation with an LBBB pattern #6. Morbid obesity with features of obstructive sleep apnea. BMI is a 56.5 #7. Hypertension #8. Hyperlipidemia #9. Chronic lower extremity edema/wounds/venous stasis with episodic cellulitis #10. Coronary artery disease and ischemic cardiomyopathy with EF of less than 20% mild MR, mild TR, severe right ventricular and moderate left atrial enlargement and right-sided pressures of 42 mmHg, #11. Chronic atrial fibrillation #12. Hypothyroidism #13. Morbid obesity #14 chronic thrombocytopenia Plan Continue dobutamine to augment cardiac output, currently running at 2.5 mcg/kg per minute Continue norepinephrine and titrate the dose to maintain a mean artery pressure above 60 Continue Lasix drip and consider dialysis/ultrafiltration of there is any progressive worsening in her renal function. Nephrology is on the case. IV cefepime monitor his I's of the lower extremity. Keep the legs elevated and appropriate dressing and wraps Amiodarone loading and maintenance anticoagulation with warfarin and the patient would have the PT/INR monitored , we'll give the patient 5 mg of vitamin K to establish an IV line. This will be either in the form of a a PICC line or triple-lumen catheter. We'll given vi tamin K 5 mg and recheck his PT/INR and proceed with line insertion. Continue utilizing BiPAP overnight We'll continue to follow make further recommendations based on his progress. Prognosis poor baseline above-mentioned comorbidities. We'll continue to follow up this patient along with cardiology and nephrology.
--- NOTE | 2020-09-10 10:49 | P.PCN ---
Date of Procedure: 09/10/20 Preoperative Diagnosis: cardiogenic shock Postoperative Diagnosis: cardiogenic shock Procedure(s) Performed: central line and arterial line insertion Anesthesia: local Surgeon: Jose Cruz Heaton Estimated Blood Loss (ml): 0 Pathology: none sent Condition: critical Disposition: ICU Operative Findings: Arterial line Indication: Hemodynamic monitoring. A time-out was completed verifying correct patient, procedure, site, positioning, and implant(s) or special equipment if applicable. The patients right groin was prepped and draped in sterile fashion. 1% Lidocaine was used to anesthetize the area. An 18G Arrow arterial line was introduced into right femoral artery. The catheter was threaded over the guide wire and the needle was removed with appropriate pulsatile blood return. Blood loss was minimal. The catheter was then sutured in place to the skin and a sterile dressing applied. Perfusion to the extremity distal to the point of catheter insertion was checked and found to be adequate. The patient tolerated the procedure well and there were no complications. Central line Indication: Hemodynamic monitoring/Intravenous access. A time-out was completed verifying correct patient, procedure, site, positioning, and implant(s) or special equipment if applicable. The patient was placed in a dependent position appropriate for central line placement based on the vein to be cannulated. The patient s right groin was prepped and draped in sterile fashion. 1% Lidocaine was used to anesthetize the surrounding skin area. A triple lumen 9F Cordis catheter was introduced into the right common femoral vein using Seldinger technique. The catheter was threaded smoothly over the guide wire and appropriate blood return was obtained. Each lumen of the catheter was evacuated of air and flushed with sterile salin e. The catheter was then sutured in place to the skin and a sterile dressing applied. Perfusion to the extremity distal to the point of catheter insertion was checked and found to be adequate. The patient tolerated the procedure well and there were no complications.
--- NOTE | 2020-09-10 11:00 | PN ---
PROGRESS NOTE Patient is seen for followup for acute kidney injury. He was admitted to the hospital with shortness of breath, CHF exacerbation. The patient was being diuresed and developed worsening hypotension and was therefore transferred to the ICU yesterday. Patient has underlying severe cardiomyopathy with ejection fraction of 20-25%. He was started on dobutamine yesterday. Patient has been maintained on BiPAP. He is currently awake, comfortable, systolic blood pressure in the 90s. He was started on small dose of Levophed yesterday. PHYSICAL EXAMINATION: On examination today, blood pressure 93/45, heart rate 87 per minute, he is afebrile. Examination of the heart S1, S2. Examination of the lungs, decreased breath sounds at the bases. Abdomen is soft. Morbidly obese. Examination of lower extremities shows edema with chronic skin changes, 2+ bilaterally. 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 LABS: Show sodium of 133, potassium 4.6, BUN 72, serum creatinine 3.84, hemoglobin 13.6 g/dL. ASSESSMENT: 1. Acute kidney injury, acute tubular necrosis secondary to hypotension as well as component of cardiorenal syndrome. I will continue to diurese the patient and change the Lasix to Lasix drip. Repeat labs in a.m. Avoid any other nephrotoxic agents. 2. Chronic kidney disease NKF stage 3A secondary to nephrosclerosis. Previous creatinine 1.2-1.3 as of October of 2019. 3. Severe cardiomyopathy, ejection fraction 20-25%. 4. Urine retention, status post Sims catheter placement. Initial urine output was 1000 cc when Sims catheter was first placed. 5. Pyuria with urine culture showing no growth after 24 hours. Final culture is not reported yet. 6. Benign prostatic hypertrophy. 7. Chronic atrial fibrillation. Maintained on Coumadin. PLAN: Add Lasix drip. Continue with dobutamine. Repeat labs in a.m. If renal function continues to worsen, and patient remains volume overloaded, he may need to start renal replacement therapy. Consider increasing dobutamine if the patient does not diurese well. MMODL / IJN: [id number] /
--- NOTE | 2020-09-10 11:03 | P.PN ---
Subjective HISTORY OF PRESENTING ILLNESS This is a pleasant 64-year-old male past medical history significant for chronic persistent atrial fibrillation on warfarin, dilated cardiomyopathy, chronic systolic heart failure, hypertension, COPD, dyslipidemia and chronic kidney disease. He follows in the office with Dr. Goodwin. We have been asked to see in consultation for heart failure. He presented to the hospital with a 3 week history of worsening shortness of breath, lower extremity edema and weight gain. He states his activity level has been decreased due to his breathing and he has gained 40lbs in the previous 6 months. He saw his PCP yesterday and was sent in for diuresis. He is seen and examined sitting up in bed. He is tachyneic at rest but maintaining his oxygen saturations. He has been started on IV diuretics. 09/10/2020 Pt seen and examined sitting up in bed in no acute distress. He is on bipap currently. He was transferred to ICU last night for worsening hypotension. He was as low as 69/40 on dobutamine infusion. Currently on levophed infusion with blood pressure of 93/45. Laboratory data reviewed, WBC 11.2, hgb 13.6, plt 97 INR 2.0, sodium 133, potassium 4.6 and creatinine 3.84. Nephrology has adjusted his lasix to an infusion rather than IVP. 24-hr urine output is only 190 ml. PHYSICAL EXAMINATION CONSTITUTIONAL: Mild respiratory distress. Morbidly obese. HEENT: Head is normocephalic. Pupils are equal, round. Sclerae anicteric. Mucous membranes of the mouth are moist. No JVD. No carotid bruit. CHEST EXAMINATION: Expiratory wheezes, scattered rhonchi, no rales. No chest wall tenderness is noted on palpation or with deep breathing. HEART EXAMINATION: Irregular rate and rhythm. S1, S2 heard. No murmurs, gallops or rub. EXTREMITIES: 2+ peripheral pulses, 2+ bilateral lower extremity pitting edema with erythema, dressings in place bilateral lower extremities and no calf tenderness. ASSESSMENT Acute on chronic systolic heart failure Chronic persistent atrial fibrillation on long-term anticoagulation with variable ventricular rates Hypertension Hyperkalemia Thrombocytopenia Troponin leak not indicative of myocardial ischemia, likely secondary to a combination of acute heart failure and chronic kidney disease Chronic kidney disease COPD Morbid obesity, BMI 47 PLAN Continue blood pressure support with levophed and renal perfusion with dobutmaine. Follow renal function and electrolytes in the morning. Close telemetry monitoring. Further recommendations to follow based on clinical course. Nurse Practitioner note has been reviewed, I agree with a documented findings and plan of care. Patient was seen and examined. Objective - Vital Signs Vital signs: Vital Signs Temp 97.3 F L 09/10/20 08:00 Pulse 87 09/10/20 10:00 Resp 12 09/10/20 10:00 BP 93/45 09/10/20 10:00 Pulse Ox 99 09/10/20 10:00 Intake & Output 09/09/20 09/10/20 09/10/20 18:59 06:59 18:59 Intake Total 440 284.890 195.018 Output Total 190 155 Balance 440 94.890 40.018 Weight 170.6 kg Intake: IV 20 100 Cefepime 2 gm In Sodium 100 Chloride 0.9% 100 ml @ 25 mls/hr IVPB BID@0600, 1800 [facility] Rx#:[id number] Invasive Line 2 20 Intake, IV Titration 284.890 95.018 Amount DOBUTamine DRIP 500 mg In 225.223 Dextrose/Water 1 250ml. bag @ 2.5 MCG/KG/MIN 12. 653 mls/hr IV .[id number] [facility] Rx#:[id number] Norepinephrine 4 mg In 59.667 95.018 Sodium Chloride 0.9% 250 ml @ 0.05 MCG/KG/MIN 32. 137 mls/hr IV .[id number] [facility] Rx#:[id number] Oral 420 Output: Urine 190 155 Other: Voiding Method Indwelling Catheter Indwelling Catheter Indwelling Catheter - Labs CBC & Chem 7: 09/10/20 05:12 09/10/20 05:12 Labs: Abnormal Lab Results - Last 24 Hours (Table) 09/09/20 09/10/20 09/10/20 Range/Units 09:08 05:12 05:12 WBC 12.1 H (3.8-10.6) k/uL RDW 16.6 H (11.5-15.5) % Plt Count 93 L (150-450) k/uL Neutrophils # 10.5 H (1.3-7.7) k/uL Lymphocytes # 0.7 L (1.0-4.8) k/uL PT 19.2 H (9.0-12.0) sec INR 2.0 H (<1.2) Sodium 133 L (137-145) mmol/L BUN 72 H (9-20) mg/dL Creatinine 3.84 H (0.66-1.25) mg/dL 09/10/20 Range/Units 05:12 WBC 11.2 H (3.8-10.6) k/uL RDW 16.8 H (11.5-15.5) % Plt Count 97 L (150-450) k/uL Neutrophils # 9.4 H (1.3-7.7) k/uL Lymphocytes # 0.8 L (1.0-4.8) k/uL PT (9.0-12.0) sec INR (<1.2) Sodium (137-145) mmol/L BUN (9-20) mg/dL Creatinine (0.66-1.25) mg/dL Microbiology - Last 24 Hours (Table) 09/07/20 17:45 Gram Stain - Preliminary Leg - Right Wound Culture - Preliminary Beta Hemolytic Strep Group G Gram Neg Bacilli 09/08/20 15:24 Blood Culture - Preliminary Blood No Growth after 24 hours 09/08/20 21:00 Urine Culture - Preliminary Urine,Voided
[2020-09-10 11:05] LABS: ABG Base Excess -5.3 mmol/L; ABG HCO3 21 mmol/L (21-25); ABG Oxygen Saturation 98.2 % (94-97); ABG PCO2 39 mmHg (35-45); ABG PH 7.33 (7.35-7.45); ABG PO2 123 mmHg (83-108); ABG TCO2 22 mmol/L (19-24)
[2020-09-10 11:07] LABS: Allen Test Performed? no
[2020-09-10 11:21] LABS: INR 2.1 (<1.2); Prothrombin Time 20.4 sec (9.0-12.0)
[2020-09-10] MEDS: allopurinoL 100 MG TAB PO SCH (13:30)
[2020-09-10] MEDS: TAMSULOSIN 0.4 MG CAP.ER.24H PO SCH (16:56)
--- NOTE | 2020-09-10 17:16 | PN ---
PROGRESS NOTE DATE OF SERVICE: 09/10/2020 REASON FOR FOLLOWUP: Lower extremity wound and cellulitis. INTERVAL HISTORY: Patient did have worsening of his respiratory status and has been transferred to the ICU. The patient is currently on a BiPAP. The patient is hemodynamically stable not on any pressor support. No vomiting or diarrhea has been reported. Denies any chest pain. No abdominal pain or any worsening pain to the lower extremity. PHYSICAL EXAMINATION: Blood pressure 117/56, pulse of 86, temperature 98, he is 98% on 50% FiO2. General description is a middle-aged male lying in bed in no distress. Respiratory system: Unlabored breathing, decreased intensity of breath sounds in the base, with no wheeze. Heart S1, S2. Regular rate and rhythm. Abdomen is soft, no tenderness. Lower extremities are currently wrapped up. Minimal drainage on the dressing. Swelling minimally decreased. LABS: Hemoglobin 13.8, hematocrit 11.2, BUN of 72, creatinine 3.84. DIAGNOSTIC IMPRESSION AND PLAN: Patient with bilateral lower extremity venostasis ulcer with cellulitis, right greater than the left. Local culture with strep and gram-negative. Patient is covered with cefepime. Local care to continue with Aquacel Silver dressing and Hermes wrap and monitor clinical course closely. MMODL / IJN: [id number] /
[2020-09-10] MEDS ORDERED: WARFARIN 5 MG TAB PO ONE (18:00)
--- NOTE | 2020-09-11 00:04 | P.PN ---
Subjective Progress Note Date: 09/09/20 Principal diagnosis: Acute on chronic CHF with systolic dysfunction ejection fraction 2025% as per TTE Patient is a 64-year-old male with a known history of chronic atrial fibri llation on anticoagulation with warfarin, chronic CHF with systolic dysfunction, hypertension, hyperlipidemia, history of my, hypothyroidism, stage III CKD, bilateral lower extremity venous insufficiency/venous stasis and previous history of cellulitis and other medical problems presents to ER with complaints of shortness of breath worsening for the past 2-4 weeks. Patient was also having increased leg swelling. No complaints of chest pain. No nausea vomiting or abdominal pain or diarrhea. No fever no chills. Denied any dysuria hematuria. No headache or dizziness. Chest x-ray showed pulmonary vascular congestion and increased lung markings, possible CHF. EKG showed atrial fibrillation with ventricle rate elevated 90. Laboratory data showed WBC 8.7, hemoglobin 14.4, platelets 120 INR 1.8 Sodium 139 potassium 5.4 chloride 108 BUN 38 and creatinine 1.78 Troponin 0.050, 0.058 and 0.053 ProBNP 76808 COVID-19 PCR not detected. Today morning bladder scan showed thousand cc of urine noted. Straight cath 1 was done. 09/08/2020 Patient is able to sit in the chair comfortably. Breathing status is much improved today. Currently on oxygen via nasal cannula at 6 L high flow. Patient states that he feels better. I am still having bilateral leg swelling and also redness noted. 2D echocardiogram showed EF 20 to 25%. Patient is being continued on IV diuresis. Laboratory showed potassium level improved to 5.3. Sodium 136 and BUN 46 and creatinine 2.12 WBC increased to 21.6, hemoglobin 14.8 and platelets 117 Patient has been afebrile.Patient is able to void spontaneously. 09/09/2020 Patient is currently sitting in the chair. She states that his breathing is better and leg swelling is also improving. Otherwise patient is hypotensive. On oxygen via nasal cannula. Laboratory data showed improved WBC 12.1 hemoglobin 13.1, platelets 93 Sodium 134 potassium 4.5 BUN 64 and creatinine increased to 3.28. Patient continues to be in atrial fibrillation. Denied any complaints of nausea vomiting or abdominal pain. Patient is on antibiotics in the form of cefepime due to bilateral lower extremity cellulitis. Patient was started on dobutamine drip due to decreased urine output. Neph rology and critical care team was consulted. Current medications reviewed. Objective - Vital Signs Vital signs: Vital Signs Temp 97.9 F 09/09/20 19:45 Pulse 52 L 09/09/20 21:23 Resp 17 09/09/20 19:45 BP 93/45 09/09/20 19:45 Pulse Ox 97 09/09/20 21:03 Intake & Output 09/09/20 09/09/20 09/10/20 06:59 18:59 06:59 Intake Total 30 440 Output Total 85 Balance -55 440 Weight 168.7 kg Intake: IV 30 20 Invasive Line 2 30 20 Oral 420 Output: Urine 85 Uretheral (Sims) 85 Other: Voiding Method Indwelling Catheter Indwelling Catheter Indwelling Catheter # Voids 1 # Bowel Movements 1 - Exam PHYSICAL EXAMINATION: Patient is lying in the bed comfortably, no acute distress, awake alert and oriented.. HEENT: Normocephalic. Neck is supple. Pupils reactive. Nostrils clear. Oral cavity is moist. Ears reveal no drainage. Neck reveals no JVD, carotid bruits, or thyromegaly. CHEST EXAMINATION: Trachea is central. Symmetrical expansion. Bibasilar diminished sounds and left minimal left basilar crackles. no wheezing.. CARDIAC: Normal S1, S2 with no gallops. No murmurs ABDOMEN: Soft. Bowel sounds normal. No organomegaly. No abdominal bruits. Extremities: 3+ bilateral pedal and chronic venostasis changes. redness and scattered small ulcerations noted. No clubbing or cyanosis Neurologically awake, alert, oriented x3 with well-coordinated movements. No focal deficits noted Skin: No rash or skin lesions. Psychiatric: Coperative. Nonsuicidal Musculoskeletal: No joint swelling or deformity. Normal range of motion. - Labs CBC & Chem 7: 09/10/20 05:12 09/10/20 05:12 Labs: Abnormal Lab Results - Last 24 Hours (Table) 09/08/20 09/09/20 09/09/20 Range/Units 21:00 07:19 09:08 WBC (3.8-10.6) k/uL RDW (11.5-15.5) % Plt Count (150-450) k/uL Neutrophils # (1.3-7.7) k/uL Lymphocytes # (1.0-4.8) k/uL PT 16.0 H (9.0-12.0) sec INR 1.6 H (<1.2) Sodium 134 L (137-145) mmol/L BUN 64 H (9-20) mg/dL Creatinine 3.28 H (0.66-1.25) mg/dL Glucose 107 H (74-99) mg/dL Urine Protein 1+ H (Negative) Urine Blood Large H (Negative) Ur Leukocyte Esterase Moderate H (Negative) Urine RBC >182 H (0-5) /hpf Urine WBC 50 H (0-5) /hpf Amorphous Sediment Few H (None) /hpf Urine Bacteria Rare H (None) /hpf 09/09/20 Range/Units 09:08 WBC 12.1 H (3.8-10.6) k/uL RDW 16.6 H (11.5-15.5) % Plt Count 93 L (150-450) k/uL Neutrophils # 10.5 H (1.3-7.7) k/uL Lymphocytes # 0.7 L (1.0-4.8) k/uL PT (9.0-12.0) sec INR (<1.2) Sodium (137-145) mmol/L BUN (9-20) mg/dL Creatinine (0.66-1.25) mg/dL Glucose (74-99) mg/dL Urine Protein (Negative) Urine Blood (Negative) Ur Leukocyte Esterase (Negative) Urine RBC (0-5) /hpf Urine WBC (0-5) /hpf Amorphous Sediment (None) /hpf Urine Bacteria (None) /hpf Microbiology - Last 24 Hours (Table) 09/07/20 17:45 Gram Stain - Preliminary Leg - Right Wound Culture - Preliminary Beta Hemolytic Strep Group G Gram Neg Bacilli 09/08/20 15:24 Blood Culture - Preliminary Blood No Growth after 24 hours 09/08/20 21:00 Urine Culture - Preliminary Urine,Voided Assessment and Plan Assessment: Acute on chronic CHF with systolic dysfunction ejection fraction 2025% as per TTE Bilateral lower extremity swelling with cellulitis. Chronic atrial fibrillation on anticoagulation with warfarin Subtherapeutic Level Mildly elevated troponin level likely due to demand ischemia with CHF and also complaining CK D Worsening Acute kidney injury likely due to diuresis. Possible cardiorenal. Chronic kidney disease stage III Hyperkalemia due to acute kidney injury and potassium supplementation at home. Hypertension Hyperlipidemia History of [place] Morbid obesity BMI 47.3 DVT prophylaxis. Patient is already on Coumadin Plan: Patient will be continued on Lasix 40 mg every 12, increased to every 8 hourly as per cardiology recommendations. Monitor ABDIRASHID's and daily weights. Patient was on BiPAP initially. Currently high flow oxygen.transitioned to oxygen via nasal cannula. Continue with metoprolol. lisinopril and Aldactone is on hold. Monitor repeat potassium level. Patient was started on dobutamine drip due to decreased urine output. Nephrology was consulted. Continue to monitor renal function. Coumadin dosing. Cardiology is on board. Patient may need biventricular ICD placement as per cardiology evaluation. Continue to follow closely. Time with Patient: Greater than 30
--- NOTE | 2020-09-11 00:12 | P.PN ---
Subjective Progress Note Date: 09/10/20 Principal diagnosis: Acute on chronic CHF with systolic dysfunction ejection fraction 2025% as per TTE Patient is a 64-year-old male with a known history of chronic atrial fibri llation on anticoagulation with warfarin, chronic CHF with systolic dysfunction, hypertension, hyperlipidemia, history of my, hypothyroidism, stage III CKD, bilateral lower extremity venous insufficiency/venous stasis and previous history of cellulitis and other medical problems presents to ER with complaints of shortness of breath worsening for the past 2-4 weeks. Patient was also having increased leg swelling. No complaints of chest pain. No nausea vomiting or abdominal pain or diarrhea. No fever no chills. Denied any dysuria hematuria. No headache or dizziness. Chest x-ray showed pulmonary vascular congestion and increased lung markings, possible CHF. EKG showed atrial fibrillation with ventricle rate elevated 90. Laboratory data showed WBC 8.7, hemoglobin 14.4, platelets 120 INR 1.8 Sodium 139 potassium 5.4 chloride 108 BUN 38 and creatinine 1.78 Troponin 0.050, 0.058 and 0.053 ProBNP 79016 COVID-19 PCR not detected. Today morning bladder scan showed thousand cc of urine noted. Straight cath 1 was done. 09/08/2020 Patient is able to sit in the chair comfortably. Breathing status is much improved today. Currently on oxygen via nasal cannula at 6 L high flow. Patient states that he feels better. I am still having bilateral leg swelling and also redness noted. 2D echocardiogram showed EF 20 to 25%. Patient is being continued on IV diuresis. Laboratory showed potassium level improved to 5.3. Sodium 136 and BUN 46 and creatinine 2.12 WBC increased to 21.6, hemoglobin 14.8 and platelets 117 Patient has been afebrile.Patient is able to void spontaneously. 09/09/2020 Patient is currently sitting in the chair. She states that his breathing is better and leg swelling is also improving. Otherwise patient is hypotensive. On oxygen via nasal cannula. Laboratory data showed improved WBC 12.1 hemoglobin 13.1, platelets 93 Sodium 134 potassium 4.5 BUN 64 and creatinine increased to 3.28. Patient continues to be in atrial fibrillation. Denied any complaints of nausea vomiting or abdominal pain. Patient is on antibiotics in the form of cefepime due to bilateral lower extremity cellulitis. Patient was started on dobutamine drip due to decreased urine output. Neph rology and critical care team was consulted. 09/10/2020 Patient was transferred to intensive care unit yesterday due to hypotension. Patient is being continued on dobutamine drip and Lasix IV changed to Lasix drip currently. Patient is on BiPAP at this time. Awake alert oriented x3. Also requiring Levophed. Chest x-ray showed marked cardiomegaly. Resolving volume overload. Patient still has bilateral lower extremity significant swelling. Laboratory data showed WBC 11.2, hemoglobin 13.6, platelets 97 and INR 2.0 Sodium 133 potassium 4.6 chloride 100 BUN 72 and creatinine 3.84. Patient denied any nausea vomiting or abdominal pain. No chest pain. Shortness of breath is improving. No cough or sputum production. Current medications reviewed. Objective - Vital Signs Vital signs: Vital Signs Temp 97.3 F L 09/10/20 08:00 Pulse 87 09/10/20 10:00 Resp 12 09/10/20 10:00 BP 93/45 09/10/20 10:00 Pulse Ox 99 09/10/20 10:00 Intake & Output 09/09/20 09/10/20 09/10/20 18:59 06:59 18:59 Intake Total 440 284.890 195.018 Output Total 190 330 Balance 440 94.890 -134.982 Weight 170.6 kg Intake: IV 20 100 Cefepime 2 gm In Sodium 100 Chloride 0.9% 100 ml @ 25 mls/hr IVPB BID@0600, 1800 [facility] Rx#:[id number] Invasive Line 2 20 Intake, IV Titration 284.890 95.018 Amount DOBUTamine DRIP 500 mg In 225.223 Dextrose/Water 1 250ml. bag @ 2.5 MCG/KG/MIN 12. 653 mls/hr IV .[id number] [facility] Rx#:[id number] Norepinephrine 4 mg In 59.667 95.018 Sodium Chloride 0.9% 250 ml @ 0.05 MCG/KG/MIN 32. 137 mls/hr IV .[id number] [facility] Rx#:[id number] Oral 420 Output: Urine 190 330 Other: Voiding Method Indwelling Catheter Indwelling Catheter Indwelling Catheter - Exam PHYSICAL EXAMINATION: Patient is lying in the bed comfortably, no acute distress, awake alert and oriented.. HEENT: Normocephalic. Neck is supple. Pupils reactive. Nostrils clear. Oral cavity is moist. Ears reveal no drainage. Neck reveals no JVD, carotid bruits, or thyromegaly. CHEST EXAMINATION: Trachea is central. Symmetrical expansion. Bibasilar diminished sounds and left minimal left basilar crackles. no wheezing.. CARDIAC: Normal S1, S2 with no gallops. No murmurs ABDOMEN: Soft. Bowel sounds normal. No organomegaly. No abdominal bruits. Extremities: 3+ bilateral pedal and chronic venostasis changes. redness and scattered small ulcerations noted. No clubbing or cyanosis Neurologically awake, alert, oriented x3 with well-coordinated movements. No focal deficits noted Skin: No rash or skin lesions. Psychiatric: Coperative. Nonsuicidal Musculoskeletal: No joint swelling or deformity. Normal range of motion. - Labs CBC & Chem 7: 09/10/20 05:12 09/10/20 05:12 Labs: Abnormal Lab Results - Last 24 Hours (Table) 09/09/20 09/10/20 09/10/20 Range/Units 09:08 05:12 05:12 WBC 12.1 H (3.8-10.6) k/uL RDW 16.6 H (11.5-15.5) % Plt Count 93 L (150-450) k/uL Neutrophils # 10.5 H (1.3-7.7) k/uL Lymphocytes # 0.7 L (1.0-4.8) k/uL PT 19.2 H (9.0-12.0) sec INR 2.0 H (<1.2) Sodium 133 L (137-145) mmol/L BUN 72 H (9-20) mg/dL Creatinine 3.84 H (0.66-1.25) mg/dL 09/10/20 Range/Units 05:12 WBC 11.2 H (3.8-10.6) k/uL RDW 16.8 H (11.5-15.5) % Plt Count 97 L (150-450) k/uL Neutrophils # 9.4 H (1.3-7.7) k/uL Lymphocytes # 0.8 L (1.0-4.8) k/uL PT (9.0-12.0) sec INR (<1.2) Sodium (137-145) mmol/L BUN (9-20) mg/dL Creatinine (0.66-1.25) mg/dL Microbiology - Last 24 Hours (Table) 09/07/20 17:45 Gram Stain - Preliminary Leg - Right Wound Culture - Preliminary Beta Hemolytic Strep Group G Gram Neg Bacilli 09/08/20 15:24 Blood Culture - Preliminary Blood No Growth after 24 hours 09/08/20 21:00 Urine Culture - Preliminary Urine,Voided Assessment and Plan Assessment: Acute hypoxic respiratory failure due to acute CHF. on BIpAP now. Acute on chronic CHF with systolic dysfunction ejection fraction 5% as per TTE Bilateral lower extremity swelling with cellulitis. Chronic atrial fibrillation on anticoagulation with warfarin Subtherapeutic Level Mildly elevated troponin level likely due to demand ischemia with CHF and also complaining CK D Worsening Acute kidney injury likely due to diuresis. Possible cardiorenal. Chronic kidney disease stage III Hyperkalemia due to acute kidney injury and potassium supplementation at home. Hypertension Hyperlipidemia History of [place] Morbid obesity BMI 47.3 DVT prophylaxis. Patient is already on Coumadin Plan: Patient is currently in the ICU. on BiPAP. Continue Levophed drip. Continue with dopamine drip and Lasix drip. Monitor renal function. Monitor ABDIRASHID's and daily weights. Continue with metoprolol. lisinopril and Aldactone is on hold. Monitor repeat potassium level. Patient was started on dobutamine drip due to decreased urine output. Nephrology is on board. Continue to monitor renal function. Coumadin dosing. Cardiology is on board. Patient may need biventricular ICD placement as per cardiology evaluation. Continue to follow closely.Prognosis is guarded. Time with Patient: Greater than 30
[2020-09-11] MEDS: FUROSEMIDE 100 MG in SODIUM CHLORIDE 0.9% 90 ML IV SCH ×4 (02:03→21:54)
[2020-09-11] MEDS: NOREPINEPHRINE 4 MG in SODIUM CHLORIDE 0.9% 250 ML IV SCH ×4 (02:58→21:55)
[2020-09-11 04:25] LABS: Anisocytosis Slight; Basophils % (A) 0 %; Eosinophils # (A) 0.4 k/uL (0-0.7); Eosinophils % (A) 4 %; HCT 40.3 % (39.0-53.0); HGB 13.3 gm/dL (13.0-17.5); Lymphocytes # (A) 0.4 k/uL (1.0-4.8); Lymphocytes % (A) 4 %; MCH 30.6 pg (25.0-35.0); MCHC 32.9 g/dL (31.0-37.0); MCV 92.9 fL (80.0-100.0); Mean Platelet Volume 14.5; Monocytes # (A) 0.4 k/uL (0-1.0); Monocytes % (A) 5 %; Neutrophils # (A) 7.8 k/uL (1.3-7.7); Neutrophils % (A) 86 %; Platelet Count 103 k/uL (150-450); RBC 4.34 m/uL (4.30-5.90); RDW 16.3 % (11.5-15.5)
[2020-09-11 04:34] LABS: Calcium 8.7 mg/dL (8.4-10.2); Potassium 4.5 mmol/L (3.5-5.1)
[2020-09-11 04:47] LABS: Large Platelets Present
[2020-09-11 04:59] LABS: INR 3.2 (<1.2); Prothrombin Time 30.7 sec (9.0-12.0)
[2020-09-11] MEDS: DOBUTamine DRIP 500 MG in DEXTROSE/WATER 1 250ML.BAG IV SCH ×2 (05:23→18:49)
[2020-09-11] MEDS: CEFEPIME 1 GM in SODIUM CHLORIDE 0.9% 50 ML IVPB SCH ×2 (05:45→17:32)
--- NOTE | 2020-09-11 06:36 | XR ---
EXAMINATION TYPE: XR chest 1V portable DATE OF EXAM: 09/11/2020 CLINICAL HISTORY: Difficulty breathing and pulmonary edema progress study. TECHNIQUE: Single AP portable semiupright view of the chest is obtained. COMPARISON: Chest x-ray from one day earlier and older studies FINDINGS: There are chronic parenchymal changes bilaterally with or significant right basilar opacit y. Persistent cardiomegaly with ectatic thoracic aorta. Osseous structures are intact. IMPRESSION: Cardiomegaly and chronic parenchymal changes with worsening right basilar acute infiltrat e and/or atelectasis.
[2020-09-11] MEDS: LEVOTHYROXINE 88 MCG TAB PO SCH (07:05)
[2020-09-11] MEDS: IPRATROPIUM-ALBUTEROL 3 ML NEB INHALATION SCH ×4 (07:57→19:13)
--- NOTE | 2020-09-11 08:35 | P.PN ---
Subjective Patient is seen in follow-up for acute kidney injury on chronic kidney disease. Currently maintained on dobutamine and Lasix drip. Urine output now 200 mL an hour. Remains on low-dose Levophed. Denies chest pain or shortness of breath. Vital signs are stable. On vasopressor support. General: The patient appeared well nourished and normally developed. HEENT: Head exam is unremarkable. Neck is without jugular venous distension. LUNGS: Breath sounds decreased. HEART: Rate and Rhythm are regular. ABDOMEN: Soft, obese. EXTREMITITES: 1+ edema. Lower extremities wrapped. Objective - Vital Signs Vital signs: Vital Signs Temp 98.2 F 09/11/20 04:00 Pulse 103 H 09/11/20 08:01 Resp 14 09/11/20 07:00 BP 108/64 09/11/20 07:00 Pulse Ox 93 L 09/11/20 07:00 Intake & Output 09/10/20 09/11/20 09/11/20 18:59 06:59 18:59 Intake Total 149.611 9138.414 10 Output Total 1505 1450 150 Balance -705.649 -284.586 -140 Weight 169.5 kg Intake: IV 120 220 10 Cefepime 2 gm In Sodium 100 100 Chloride 0.9% 100 ml @ 25 mls/hr IVPB BID@0600, 1800 [facility] Rx#:[id number] KVO 20 120 10 Intake, IV Titration 679.351 945.414 Amount DOBUTamine DRIP 500 mg In 250.00 249.254 Dextrose/Water 1 250ml. bag @ 2.5 MCG/KG/MIN 12. 653 mls/hr IV .[id number] [facility] Rx#:[id number] Furosemide 100 mg In 80.333 91.333 Sodium Chloride 0.9% 90 ml @ 10 MG/HR 10 mls/hr IV .Q10H [facility] Rx#: [id number] Norepinephrine 4 mg In 349.018 604.827 Sodium Chloride 0.9% 250 ml @ 0.05 MCG/KG/MIN 32. 137 mls/hr IV .[id number] [facility] Rx#:[id number] Output: Urine 1505 1450 150 Other: Voiding Method Indwelling Catheter Indwelling Catheter ABP, PAP, CO, CI - Last Documented Arterial Blood Pressure 117/58 - Labs CBC & Chem 7: 09/11/20 04:05 09/11/20 04:05 Labs: Abnormal Lab Results - Last 24 Hours (Table) 09/10/20 09/10/20 09/11/20 Range/Units 10:55 11:03 04:05 RDW (11.5-15.5) % Plt Count (150-450) k/uL Neutrophils # (1.3-7.7) k/uL Lymphocytes # (1.0-4.8) k/uL PT 20.4 H (9.0-12.0) sec INR 2.1 H (<1.2) ABG pH 7.33 L (7.35-7.45) ABG pO2 123 H (83-108) mmHg ABG O2 Saturation 98.2 H (94-97) % Sodium 135 L (137-145) mmol/L Carbon Dioxide 20 L (22-30) mmol/L BUN 70 H (9-20) mg/dL Creatinine 3.13 H (0.66-1.25) mg/dL Glucose 105 H (74-99) mg/dL 09/11/20 09/11/20 Range/Units 04:05 04:40 RDW 16.3 H (11.5-15.5) % Plt Count 103 L (150-450) k/uL Neutrophils # 7.8 H (1.3-7.7) k/uL Lymphocytes # 0.4 L (1.0-4.8) k/uL PT 30.7 H (9.0-12.0) sec INR 3.2 H (<1.2) ABG pH (7.35-7.45) ABG pO2 (83-108) mmHg ABG O2 Saturation (94-97) % Sodium (137-145) mmol/L Carbon Dioxide (22-30) mmol/L BUN (9-20) mg/dL Creatinine (0.66-1.25) mg/dL Glucose (74-99) mg/dL Microbiology - Last 24 Hours (Table) 09/07/20 17:45 Anaerobic Culture - Preliminary Leg - Right 09/08/20 15:24 Blood Culture - Preliminary Blood No Growth after 48 hours 09/08/20 21:00 Urine Culture - Final Urine,Voided Assessment and Plan Plan: Assessment: 1. Acute kidney injury secondary to ATN secondary to cardiorenal syndrome. Now nonoliguric. Renal function better. Creatinine 3.13 today. 2. Chronic kidney disease stage IIIa. Baseline creatinine 1.2-1.3 secondary to nephrosclerosis. 3. Acute on chronic systolic CHF with ejection fraction of 20-25%. 4. Metabolic acidosis secondary to acute kidney injury. 5. Volume overload. Improving with diuresis. Plan: Maintain dobutamine and Lasix drip. Resume midodrine. Wean Levophed. Add oral bicarbonate. Continue to monitor renal function and urine output. At this time patient is refusing any form of renal replacement therapy if needed.
[2020-09-11] MEDS: AMIODARONE 200 MG TAB PO SCH ×2 (08:52→20:49)
[2020-09-11] MEDS: ASPIRIN 81 MG PO SCH (08:52)
[2020-09-11] MEDS: METOPROLOL TARTRATE 50 MG TAB PO SCH ×2 (08:52→20:49)
--- NOTE | 2020-09-11 09:16 | P.PN ---
Subjective Progress Note Date: 09/11/20 This is a 64-year-old male patient, morbidly obese with biventricular failure, chronic systolic heart failure, chronic kidney disease, chronic itchy fibrillation and various other medical problems and comorbidities as will be discussed with him. The patient comes in with significant weight gain, volume overload, increased lower extremity edema, 1 in lower extremities more so on the left along with erythema and several episodes of the left lower extremity. The patient also has vesicles that are filled with fluid secondary to her increased subcutaneous emphysema mainly over the right lower flank area, and pressure points. For that reason, the patient was hospitalized. The patient was fine to be hypoxic. He is not known to have any home oxygen. He was placed on oxygen currently is up to 15 L of oxygen by nasal cannula. No history of COPD most of smoking. His chest x-ray was consistent with cardiac regular and pulmonary edema. EKG was consistent with chronic atrial fibrillation with a LBBB pattern. The patient's white cell count was as high as 21.6 . The patient had a proBNP level of 17,004 100. Troponins were 0.053 respectively. Creatinine initially was at 1.7. The patient was initially started on a combination of diuretics and antibiotics. The patient was started on IV cefepime. The culture from the wound is positive for strep. White cell count is improving. Nevertheless, the patient developed some worsening renal function. The patient developed an acute on top of chronic kidney disease. The patient was accordingly started on dobutamine today. The echo showing an ejection fraction of 20-25%. RV severely dilated. LV is also moderately dilated. PA pressure was 42 mmHg. On 09/10/2020, I'm seeing the patient for a follow-up. Overnight, the patient got transferred to the intensive care unit as the patient was having episodes of hypotension and his systolic blood pressure was dropping in the mid 70s. Note that the patient was being treated with a combination of dobutamine and Lasix. I had to bring him to the intensive care unit and the patient was started on levo fed for hemodynamic support. Is currently on levo fed running at 0.04 mcg/kg per minute. Chest x-ray still showing cardiomegaly. Clinically he does have some edema lower extremities bilaterally and also edema on his flanks and hips area. He is also being treated for this unless of the left lower extremity. This morning, he remains on dobutamine at 2.5 Jc respiratory per minute. Remains on norepinephrine infusion at low dose. He is still on Lasix drip running at 10 mg an hour. An arterial line will be established for adequate blood pressure monitoring. He also benefit from the PICC line. He remains on IV cefepime. White cell count is down to 11. His INR currently is at 2.0 and the patient has an underlying atrial fibrillation rhythm with a LBBB pattern. Creatinine is on the rise and is currently up to 3.84 with a BUN of 72. On examination, the cellulitis still present in the left lower extremity although the area and his left lower extremity is less erythematous. In addition, the patient is currently on BiPAP for respiratory support. BiPAP is running at a pressure of 10/5 cm of water with an FiO2 of 40%. He is quite interested the respirator and is able to generate adequate tidal volumes and no signs of any significant respiratory distress. No signs of any CO2 narcosis. 09/11/2020, the patient is improved clinically. There is improvement in his mentation. The patient is much more awake and interactive and is currently off the BiPAP. He is back on oxygen at 5 L per minute nasal cannula. He did utilize the BiPAP throughout the day yesterday as the patient was lethargic and insignificant degree of respiratory distress. At the same time, lines were established, the patient was started on a high dose of dobutamine at 5 mg/kg/m and the patient was also started on Lasix drip at 10 mg an hour. Norepinephrine is also being utilized for hemodynamic support which is currently running at 0.06 mcg/kg per minute. This improved his overall hemodynamics. His urine output gradually picked up and currently is producing urine output in the order of 100 mL an hour. His net fluid balance has been negative. Also, he remains on antibiotics regarding the left lower extremity cellulitis. The area looks improved and it's much less erythematous and red on today's evaluation. The swelling is also improving and his lower extremities bilaterally. His white cell count is currently down to 9 and the patient's renal function continues to improve. His creatinine today is down to 3.1 with a BUN of 17. Rest of the electrodes shows some mild metabolic acidosis with a serum bicarb of 20. The patient's INR today is at 3.2. No bleeding complications. He is quite stable. Tolerating diet. Moving all 4 extremities without any limitation. No altered mentation. His cardiac rhythm remains atrial fibrillation. Objective - Vital Signs Vital signs: Vital Signs Temp 98.2 F 09/11/20 04:00 Pulse 103 H 09/11/20 08:01 Resp 14 09/11/20 07:00 BP 108/64 09/11/20 07:00 Pulse Ox 93 L 09/11/20 07:00 Intake & Output 09/10/20 09/11/20 09/11/20 18:59 06:59 18:59 Intake Total 029.551 6575.414 10 Output Total 1505 1450 150 Balance -705.649 -284.586 -140 Weight 169.5 kg Intake: IV 120 220 10 Cefepime 2 gm In Sodium 100 100 Chloride 0.9% 100 ml @ 25 mls/hr IVPB BID@0600, 1800 [facility] Rx#:[id number] KVO 20 120 10 Intake, IV Titration 679.351 945.414 Amount DOBUTamine DRIP 500 mg In 250.00 249.254 Dextrose/Water 1 250ml. bag @ 2.5 MCG/KG/MIN 12. 653 mls/hr IV .[id number] [facility] Rx#:[id number] Furosemide 100 mg In 80.333 91.333 Sodium Chloride 0.9% 90 ml @ 10 MG/HR 10 mls/hr IV .Q10H [facility] Rx#: [id number] Norepinephrine 4 mg In 349.018 604.827 Sodium Chloride 0.9% 250 ml @ 0.05 MCG/KG/MIN 32. 137 mls/hr IV .[id number] [facility] Rx#:[id number] Output: Urine 1505 1450 150 Other: Voiding Method Indwelling Catheter Indwelling Catheter ABP, PAP, CO, CI - Last Documented Arterial Blood Pressure 117/58 - Exam GENERAL EXAM: 10 alert and communicating on 5 L of oxygen by nasal cannula. The patient has a BMI of 56.5. HEAD: Normocephalic/atraumatic. EYES: Normal reaction of pupils, equal size. Conjunctiva pink, sclera white. NOSE: Clear with pink turbinates. THROAT: No erythema or exudates. The patient has a metabolic live 4 with significant crowding of the posterior oropharynx. NECK: No masses, no JVD, no thyroid enlargement, no adenopathy. CHEST: No chest wall deformity. Symmetrical expansion. Generalized macular rash on chest, abdomen, back and arms LUNGS: very diminished breath sounds over left chest, crackles over right lower lobe CVS: Irregular rate and rhythm, distant S1 and S2, no gallops, no murmurs, no rubs ABDOMEN: Soft, nontender, obese with macular rash all over the old abdomen. No hepatosplenomegaly, normal bowel sounds, no guarding or rigidity. EXTREMITIES: No clubbing, extensive edema involving bilateral lower extremities with cellulitis redness and tenderness left greater than right, onychomycosis, dry cracked skin on bilateral soles, no cyanosis, 1+ pulses and upper and lower extremities. this cellulites of the left lower extremities improving and the area is less red and erythematous MUSCULOSKELETAL: Muscle strength and tone normal. SPINE: No scoliosis or deformity SKIN: Generalized macular rash on chest abdomen and back CENTRAL NERVOUS SYSTEM: Alert and oriented -3. No focal deficits, tone is no rmal in all 4 extremities. PSYCHIATRIC: Alert and oriented -3. Appropriate affect. Intact judgment and insight. - Labs CBC & Chem 7: 09/11/20 04:05 09/11/20 04:05 Labs: Abnormal Lab Results - Last 24 Hours (Table) 09/10/20 09/10/20 09/11/20 Range/Units 10:55 11:03 04:05 RDW (11.5-15.5) % Plt Count (150-450) k/uL Neutrophils # (1.3-7.7) k/uL Lymphocytes # (1.0-4.8) k/uL PT 20.4 H (9.0-12.0) sec INR 2.1 H (<1.2) ABG pH 7.33 L (7.35-7.45) ABG pO2 123 H (83-108) mmHg ABG O2 Saturation 98.2 H (94-97) % Sodium 135 L (137-145) mmol/L Carbon Dioxide 20 L (22-30) mmol/L BUN 70 H (9-20) mg/dL Creatinine 3.13 H (0.66-1.25) mg/dL Glucose 105 H (74-99) mg/dL 09/11/20 09/11/20 Range/Units 04:05 04:40 RDW 16.3 H (11.5-15.5) % Plt Count 103 L (150-450) k/uL Neutrophils # 7.8 H (1.3-7.7) k/uL Lymphocytes # 0.4 L (1.0-4.8) k/uL PT 30.7 H (9.0-12.0) sec INR 3.2 H (<1.2) ABG pH (7.35-7.45) ABG pO2 (83-108) mmHg ABG O2 Saturation (94-97) % Sodium (137-145) mmol/L Carbon Dioxide (22-30) mmol/L BUN (9-20) mg/dL Creatinine (0.66-1.25) mg/dL Glucose (74-99) mg/dL Microbiology - Last 24 Hours (Table) 09/07/20 17:45 Anaerobic Culture - Preliminary Leg - Right 09/08/20 15:24 Blood Culture - Preliminary Blood No Growth after 48 hours 09/08/20 21:00 Urine Culture - Final Urine,Voided Assessment and Plan Plan: #1. Acute hypoxemic respiratory failure related to acute exacerbation of systolic CHF. In fact the patient has biventricular failure. The patient has LV dysfunction with an ejection fraction of 20-25% in addition to IV failure. Has extensive anasarca and fluid overload. Nevertheless, the patient is also having issues with cellulitis of left lower extremity and acute on chronic kidney injury with diminished urine output.the patient is on a combination of dobutamine and Lasix drip. Norepinephrine is also being utilized for hemodynamic support. Urine output is improved. The patient is mobilizing his fluid and currently making urine output in order of 100 mL an hour. Several episodes of the left lower extremity is also improving. Currently is off the BiPAP is currently on oxygen at 5 L per minute nasal cannula. #2. bilateral lower extremity cellulitis, left greater than right with extensive redness, swelling and tenderness involving lower extremities, ID is on the case and the patient is receiving local wound care and the patient is on broad- spectrum antibiotics IV cefepime.cellulitis improving and the patient's white cell count is also dropped. #3. Acute on chronic kidney disease, likely secondary to diuretics and cardiorenal factors, creatinine is improving #4. Leukocytosis, improving #5. Chronic atrial fibrillation with an LBBB pattern #6. Morbid obesity with features of obstructive sleep apnea. BMI is a 56.5 #7. Hypertension #8. Hyperlipidemia #9. Chronic lower extremity edema/wounds/venous stasis with episodic cellulitis #10. Coronary artery disease and ischemic cardiomyopathy with EF of less than 20% mild MR, mild TR, severe right ventricular and moderate left atrial enlargement and right-sided pressures of 42 mmHg, #11. Chronic atrial fibrillation #12. Hypothyroidism #13. Morbid obesity #14 chronic thrombocytopenia , stable platelet counts Plan Continue dobutamine to augment cardiac output, currently running at 5 mcg/kg per minute Continue norepinephrine and titrate the dose to maintain a mean artery pressure above 60 Continue Lasix drip and consider dialysis/ultrafiltration of there is any progressive worsening in her renal function. Nephrology is on the case.clinically the patient is responding and Lasix drip will be kept at 10 mg an hour IV cefepime Re: Left lower extremity cellulitis which is clinically improving monitor his I's of the lower extremity. Keep the legs elevated and appropriate dressing and wraps Amiodarone loading and maintenance anticoagulation with warfarin hold for today and monitor the PT/INR Lines have been established Clinically improved and more stable compared to yesterday We'll continue to follow make further recommendations based on his progress. Prognosis poor baseline above-mentioned comorbidities. We'll continue to follow up this patient along with cardiology and nephrology.
[2020-09-11] MEDS: MIDODRINE 5 MG TAB PO SCH ×2 (11:06→17:32)
[2020-09-11] MEDS: allopurinoL 100 MG TAB PO SCH (11:07)
[2020-09-11] MEDS: SODIUM BICARBONATE TAB 650 MG TAB PO SCH ×2 (11:07→20:49)
--- NOTE | 2020-09-11 15:53 | P.PN ---
Subjective Progress Note Date: 09/11/20 This 64-year-old gentleman with a severe cardiomyopathy ischemic heart disease and CHF and generalized anasarca is admitted to the hospital with increasing shortness of breath. Patient also had acute tubular necrosis and renal failure. He is on IV Lasix drip along with IV dobutamine and also Levophed. Patient urine output is improved. His mentation is improved. Attempts are being made to wean him off the Levophed. He is also started on midodrine. He is being treated with antibiotics for cellulitis of the leg. Patient is able to communicate. Appears to be less short of breath. We'll continue current management including IV Lasix and dobutamine. Prognosis still guarded Objective - Vital Signs Vital signs: Vital Signs Temp 97.8 F 09/11/20 12:00 Pulse 106 H 09/11/20 15:27 Resp 30 H 09/11/20 15:00 BP 97/81 09/11/20 13:00 Pulse Ox 96 09/11/20 15:00 Intake & Output 09/10/20 09/11/20 09/11/20 18:59 06:59 18:59 Intake Total 668.204 5940.414 602.243 Output Total 1505 1450 1825 Balance -705.649 -284.586 -1222.757 Weight 169.5 kg Intake: IV 120 220 90 Cefepime 2 gm In Sodium 100 100 Chloride 0.9% 100 ml @ 25 mls/hr IVPB BID@0600, 1800 [facility] Rx#:[id number] KVO 20 120 90 Intake, IV Titration 679.351 945.414 512.243 Amount DOBUTamine DRIP 500 mg In 250.00 249.254 Dextrose/Water 1 250ml. bag @ 2.5 MCG/KG/MIN 12. 653 mls/hr IV .[id number] [facility] Rx#:[id number] Furosemide 100 mg In 80.333 91.333 134.834 Sodium Chloride 0.9% 90 ml @ 10 MG/HR 10 mls/hr IV .Q10H [facility] Rx#: [id number] Norepinephrine 4 mg In 349.018 604.827 377.409 Sodium Chloride 0.9% 250 ml @ 0.05 MCG/KG/MIN 32. 137 mls/hr IV .Q7H55M [facility] Rx#:[id number] Output: Urine 1505 1450 1825 Other: Voiding Method Indwelling Catheter Indwelling Catheter Indwelling Catheter ABP, PAP, CO, CI - Last Documented Arterial Blood Pressure 102/53 - Exam GENERAL EXAM: Patient is much more alert today and communicative HEENT: Normocephalic. Normal reaction of pupils, equal size, normal range of extraocular motion. No erythema or exudates in the throat. NECK: No masses, no nuchal rigidity. CHEST: No chest wall deformity. Diminished breath sounds Equal air entry with no crackles or wheeze. HEART: S1 and S2 normal with no audible mumurs or gallops. Regular rhythm, femorals equal on both sides.. ABDOMEN: No hepatosplenomegaly, normal bowel sounds, no guarding or rigidity. SKIN: No rashes CENTRAL NERVOUS SYSTEM: No focal deficits. EXTREMITIES: Wrapped with evidence of cellulitis - Labs CBC & Chem 7: 09/11/20 04:05 09/11/20 04:05 Labs: Abnormal Lab Results - Last 24 Hours (Table) 09/11/20 09/11/20 09/11/20 Range/Units 04:05 04:05 04:40 RDW 16.3 H (11.5-15.5) % Plt Count 103 L (150-450) k/uL Neutrophils # 7.8 H (1.3-7.7) k/uL Lymphocytes # 0.4 L (1.0-4.8) k/uL PT 30.7 H (9.0-12.0) sec INR 3.2 H (<1.2) Sodium 135 L (137-145) mmol/L Carbon Dioxide 20 L (22-30) mmol/L BUN 70 H (9-20) mg/dL Creatinine 3.13 H (0.66-1.25) mg/dL Glucose 105 H (74-99) mg/dL Microbiology - Last 24 Hours (Table) 09/07/20 17:45 Anaerobic Culture - Preliminary Leg - Right 09/08/20 15:24 Blood Culture - Preliminary Blood No Growth after 48 hours Assessment and Plan (1) Ischemic cardiomyopathy Current Visit: Yes Status: Acute Code(s): I25.5 - ISCHEMIC CARDIOMYOPATHY SNOMED Code(s): 353052763 (2) CHF exacerbation Current Visit: Yes Status: Acute Code(s): I50.9 - HEART FAILURE, UNSPECIFIED SNOMED Code(s): 481546682 (3) Acute renal failure Current Visit: No Status: Acute Code(s): N17.9 - ACUTE KIDNEY FAILURE, UNSPECIFIED SNOMED Code(s): 73382629 (4) Cellulitis and abscess of left leg Current Visit: No Status: Acute Code(s): L03.116 - CELLULITIS OF LEFT LOWER LIMB; L02.416 - CUTANEOUS ABSCESS OF LEFT LOWER LIMB SNOMED Code(s): 816760951 Plan: Continue current treatment including IV Lasix and dobutamine . follow electolites closely. Continue antibiotics. Prognosis is guarded
--- NOTE | 2020-09-11 16:44 | PN ---
PROGRESS NOTE DATE OF SERVICE: 09/11/2020 REASON FOR FOLLOWUP: Bilateral lower extremity venostasis ulcer and cellulitis. INTERVAL HISTORY: Patient has been taken off the BiPAP. The patient is breathing comfortably. Patient denies having any chest pain. Occasional cough. No abdominal pain. Worsening pain in lower extremity. PHYSICAL EXAMINATION: Blood pressure 102/53 with a pulse of 96, temperature 97.8. He is 96% on 50%. General description is an elderly male lying in bed in no distress. Respiratory system: Unlabored breathing. Lungs clear to auscultation anteriorly. Heart: S1, S2. Regular rate and rhythm. Abdomen soft, no tenderness. Extremities: Wrapped, no drainage on the dressing. LABS: Hemoglobin 13.8, white count 9.0, BUN of 7, creatinine 3.13. DIAGNOSTIC IMPRESSION AND PLAN: Patient with bilateral lower extremity venostasis ulcer and cellulitis, right greater than the left. Culture showing Gram-negative and strep. Patient is covered with cefepime. Local care with Aquacel dressing. Continue supportive care. MMODL / IJN: [id number] /
[2020-09-11] MEDS: TAMSULOSIN 0.4 MG CAP.ER.24H PO SCH (17:31)
[2020-09-11] MEDS ORDERED: WARFARIN 0.5 MG TAB PO ONE (18:00)
--- NOTE | 2020-09-11 23:13 | P.PN ---
Subjective Patient is a 64-year-old male with a known history of chronic atrial fibrillation on anticoagulation with warfarin, chronic CHF with systolic dysfun ction, hypertension, hyperlipidemia, history of my, hypothyroidism, stage III CKD, bilateral lower extremity venous insufficiency/venous stasis and previous history of cellulitis and other medical problems presents to ER with complaints of shortness of breath worsening for the past 2-4 weeks. Patient was also having increased leg swelling. No complaints of chest pain. Patient diagnosed with severe systolic CHF with ejection fraction of 20-25% with resultant acute hypoxic respiratory failure, patient is placed on dobutamine and Lasix drips. Also he needed some mild dose norepinephrine drip for blood pressure support. He is on cefepime for left leg cellulitis. Creatinine is improving 3.8 down to 3.1 today, his acute kidney injury secondary to cardiorenal syndrome He is on Coumadin for A. fib. INR is 3.2 today. Wound culture is growing Streptococcus and gram-negative bacilli today patient feels better with breathing more easily, he is needing 6 L of oxygen via nasal cannula Patient is hemodynamically stable. Review of systems CONSTITUTIONAL: No fever, no malaise, no fatigue. HEENT: No recent visual problems or hearing problems. Denied any sore throat. CARDIOVASCULAR: No orthopnea, PND, no palpitations, no syncope. PULMONARY: No chest wall tenderness, no hemoptysis. GASTROINTESTINAL: No diarrhea, no nausea, no vomiting, no abdominal pain. Normoactive bowel sounds. Active Medications Generic Name Dose Route Start Last Admin Trade Name Freq PRN Reason Stop Dose Admin Albuterol/Ipratropium 3 ml 09/06/20 22:04 09/07/20 08:34 Ipratropium-Albuterol 3 Ml Neb INHALATION 3 ml RT-TID PRN Administration Shortness Of Breath Or Wheezing Albuterol/Ipratropium 3 ml 09/07/20 16:00 09/11/20 19:13 Ipratropium-Albuterol 3 Ml Neb INHALATION 3 ml RT-QID [facility] Administration Allopurinol 100 mg 09/07/20 12:00 09/11/20 11:07 Allopurinol 100 Mg Tab PO 100 mg DAILY@1200 [facility] Administration Amiodarone HCl 400 mg 09/08/20 09:00 09/11/20 20:49 Amiodarone 200 Mg Tab PO 400 mg BID [facility] Administration Aspirin 81 mg 09/07/20 09:45 09/11/20 08:52 Aspirin 81 Mg PO 81 mg DAILY [facility] Administration Famotidine 20 mg 09/12/20 09:00 Famotidine 20 Mg/2 Ml Vial IV Q12HR [facility] Dobutamine HCl/Dextrose 500 mg 250 mls @ 12.653 mls/hr 09/09/20 11:00 09/11/20 18:49 / IV Solution IV 5 mcg/kg/min .[id number] [facility] 25.305 mls/hr Administration 2.5 MCG/KG/MIN Cefepime HCl 1 gm/ Sodium 50 mls @ 12.5 mls/hr 09/09/20 18:00 09/11/20 17:32 Chloride IVPB 12.5 mls/hr BID@0600,1800 [facility] Administration Norepinephrine Bitartrate 4 mg 254 mls @ 32.137 mls/hr 09/10/20 00:15 09/11/20 21:55 / Sodium Chloride IV 0.06 mcg/kg/min .Q7H55M [facility] 38.565 mls/hr Administration Protocol 0.05 MCG/KG/MIN Furosemide 100 mg/ Sodium 100 mls @ 10 mls/hr 09/10/20 08:30 09/11/20 21:54 Chloride IV 10 mg/hr .Q10H [facility] 10 mls/hr Administration 10 MG/HR Levothyroxine Sodium 100 mcg 09/08/20 06:30 09/10/20 06:18 Levothyroxine 100 Mcg Tab PO Not Given [id number] [facility] Levothyroxine Sodium 88 mcg 09/07/20 09:45 09/11/20 07:05 Levothyroxine 88 Mcg Tab PO 88 mcg [id number] [facility] Administration Metoprolol Tartrate 50 mg 09/07/20 09:00 09/11/20 20:49 Metoprolol Tartrate 50 Mg Tab PO 50 mg BID [facility] Administration Midodrine 5 mg 09/11/20 12:30 09/11/20 17:32 Midodrine 5 Mg Tab PO 5 mg AC-TID [facility] Administration Miscellaneous Information 0 each 09/07/20 07:55 Warfarin Per Pharmacy MISCELLANE DIRECTED PRN PHARMACY DOSING WARFARIN Naloxone HCl 0.2 mg 09/06/20 19:11 Naloxone 0.4 Mg/Ml 1 Ml Vial IV Q2M PRN Opioid Reversal Sodium Bicarbonate 650 mg 09/11/20 09:00 09/11/20 20:49 Sodium Bicarbonate Tab 650 Mg Tab PO 650 mg BID [facility] Administration Tamsulosin HCl 0.4 mg 09/08/20 18:30 09/11/20 17:31 Tamsulosin 0.4 Mg Cap.Er.24h PO 0.4 mg PC-SUPPER RAD[facility] Administration Objective - Vital Signs Vital signs: Vital Signs Temp 97.7 F 09/11/20 08:00 Pulse 105 H 09/11/20 10:00 Resp 22 09/11/20 10:00 BP 99/70 09/11/20 10:00 Pulse Ox 95 09/11/20 10:00 Intake & Output 09/10/20 09/11/20 09/11/20 18:59 06:59 18:59 Intake Total 465.760 7219.414 171.878 Output Total 1505 1450 875 Balance -705.649 -284.586 -703.122 Weight 169.5 kg Intake: IV 120 220 40 Cefepime 2 gm In Sodium 100 100 Chloride 0.9% 100 ml @ 25 mls/hr IVPB BID@0600, 1800 [facility] Rx#:[id number] KVO 20 120 40 Intake, IV Titration 679.351 945.414 131.878 Amount DOBUTamine DRIP 500 mg In 250.00 249.254 Dextrose/Water 1 250ml. bag @ 2.5 MCG/KG/MIN 12. 653 mls/hr IV .[id number] [facility] Rx#:[id number] Furosemide 100 mg In 80.333 91.333 Sodium Chloride 0.9% 90 ml @ 10 MG/HR 10 mls/hr IV .Q10H [facility] Rx#: [id number] Norepinephrine 4 mg In 349.018 604.827 131.878 Sodium Chloride 0.9% 250 ml @ 0.05 MCG/KG/MIN 32. 137 mls/hr IV .Q7H55M [facility] Rx#:[id number] Output: Urine 1505 1450 875 Other: Voiding Method Indwelling Catheter Indwelling Catheter Indwelling Catheter ABP, PAP, CO, CI - Last Documented Arterial Blood Pressure 124/64 - Exam GENERAL: The patient is alert and oriented x3, not in any acute distress. Well developed, well nourished. HEENT: Pupils are round and equally reacting to light. EOMI. No scleral icterus. No conjunctival pallor. Normocephalic, atraumatic. No pharyngeal erythema. No thyromegaly. CARDIOVASCULAR: S1 and S2 present. No murmurs, rubs, or gallops. -PULMONARY: Chest is clear to auscultation, no wheezing or. Bilateral basal crepitation ABDOMEN: Soft, nontender, nondistended, normoactive bowel sounds. No palpable organomegaly. MUSCULOSKELETAL: No joint swelling or deformity. -EXTREMITIES: No cyanosis, clubbing, . Bilateral patellar like edema NEUROLOGICAL: Gross neurological examination did not reveal any focal deficits. SKIN: No rashes. no petechiae. - Labs CBC & Chem 7: 09/11/20 04:05 09/11/20 04:05 Labs: Abnormal Lab Results - Last 24 Hours (Table) 09/10/20 09/10/20 09/11/20 Range/Units 10:55 11:03 04:05 RDW (11.5-15.5) % Plt Count (150-450) k/uL Neutrophils # (1.3-7.7) k/uL Lymphocytes # (1.0-4.8) k/uL PT 20.4 H (9.0-12.0) sec INR 2.1 H (<1.2) ABG pH 7.33 L (7.35-7.45) ABG pO2 123 H (83-108) mmHg ABG O2 Saturation 98.2 H (94-97) % Sodium 135 L (137-145) mmol/L Carbon Dioxide 20 L (22-30) mmol/L BUN 70 H (9-20) mg/dL Creatinine 3.13 H (0.66-1.25) mg/dL Glucose 105 H (74-99) mg/dL 09/11/20 09/11/20 Range/Units 04:05 04:40 RDW 16.3 H (11.5-15.5) % Plt Count 103 L (150-450) k/uL Neutrophils # 7.8 H (1.3-7.7) k/uL Lymphocytes # 0.4 L (1.0-4.8) k/uL PT 30.7 H (9.0-12.0) sec INR 3.2 H (<1.2) ABG pH (7.35-7.45) ABG pO2 (83-108) mmHg ABG O2 Saturation (94-97) % Sodium (137-145) mmol/L Carbon Dioxide (22-30) mmol/L BUN (9-20) mg/dL Creatinine (0.66-1.25) mg/dL Glucose (74-99) mg/dL Microbiology - Last 24 Hours (Table) 09/07/20 17:45 Anaerobic Culture - Preliminary Leg - Right 09/08/20 15:24 Blood Culture - Preliminary Blood No Growth after 48 hours 09/08/20 21:00 Urine Culture - Final Urine,Voided Assessment and Plan Assessment: Acute hypoxic respiratory failure due to acute CHF. Acute on chronic CHF with systolic dysfunction ejection fraction 2025% as per TTE Bilateral lower extremity swelling with left leg cellulitis. Chronic atrial fibrillation on anticoagulation with warfarin Subtherapeutic Level. Coagulopathy secondary to Coumadin Mildly elevated troponin level likely due to demand ischemia with CHF and also complaining CK D Worsening Acute kidney injury likely due to cardiorenal. Chronic kidney disease stage III Hypertension Hyperlipidemia History of [place] Morbid obesity BMI 47.3 Plan: This is a pleasant 64 years old male who presents with severe CHF, left leg cellulitis and a KI. Continue with Lasix drip, monitor urine output. Monitor e lectrolytes. Cardiology and pulmonary/critical care team consult as well as nephrology team on the case Continue with dobutamine drip nicotine and pressor support as needed Continue with antibiotic, currently with cefepime Monitor INR while he is on Coumadin. Labs and medication were reviewed.. Continue same treatment. Continue with symptomatic treatment. Resume home medication. Monitor lytes and vitals. DVT and GI prophylaxis. Further recommendationsas per clinical course of the patient DVT prophylaxis: on Coumadin GI Prophylaxis: Pepcid Prognosis is guarded
[2020-09-12] MEDS: DOBUTamine DRIP 500 MG in DEXTROSE/WATER 1 250ML.BAG IV SCH ×3 (03:08→23:08)
[2020-09-12 04:21] LABS: INR 3.1 (<1.2); Prothrombin Time 29.4 sec (9.0-12.0)
[2020-09-12 04:24] LABS: Anisocytosis Slight; Basophils % (A) 0 %; Eosinophils # (A) 0.4 k/uL (0-0.7); Eosinophils % (A) 5 %; HCT 40.4 % (39.0-53.0); HGB 13.1 gm/dL (13.0-17.5); Lymphocytes # (A) 0.3 k/uL (1.0-4.8); Lymphocytes % (A) 4 %; MCHC 32.5 g/dL (31.0-37.0); MCV 92.4 fL (80.0-100.0); Mean Platelet Volume 13.5; Monocytes # (A) 0.4 k/uL (0-1.0); Monocytes % (A) 5 %; Neutrophils # (A) 7.6 k/uL (1.3-7.7); Neutrophils % (A) 85 %; RBC 4.38 m/uL (4.30-5.90); RDW 16.4 % (11.5-15.5); WBC 8.9 k/uL (3.8-10.6)
[2020-09-12 04:57] LABS: Calcium 8.4 mg/dL (8.4-10.2); Magnesium 2.1 mg/dL (1.6-2.3); Potassium 4.1 mmol/L (3.5-5.1)
[2020-09-12 05:22] LABS: Large Platelets Present; Platelet Count 93 k/uL (150-450)
[2020-09-12] MEDS: NOREPINEPHRINE 4 MG in SODIUM CHLORIDE 0.9% 250 ML IV SCH ×2 (05:24→22:48)
[2020-09-12] MEDS: CEFEPIME 1 GM in SODIUM CHLORIDE 0.9% 50 ML IVPB SCH ×2 (05:42→17:08)
[2020-09-12] MEDS: MIDODRINE 5 MG TAB PO SCH ×3 (05:42→17:09)
--- NOTE | 2020-09-12 06:32 | XR ---
EXAMINATION TYPE: XR chest 1V portable DATE OF EXAM: 09/12/2020 CLINICAL HISTORY: Difficulty breathing CHF progress study. TECHNIQUE: Single AP portable upright view of the chest is obtained. COMPARISON: Chest x-ray from one day earlier FINDINGS: There are chronic parenchymal changes bilaterally with persistent right basilar opacity. P ersistent cardiomegaly with ectatic thoracic aorta. Osseous structures are intact. IMPRESSION: Cardiomegaly and chronic parenchymal changes with right basilar acute infiltrate and/or a telectasis. No significant change from one day earlier.
[2020-09-12] MEDS: LEVOTHYROXINE 88 MCG TAB PO SCH (06:58)
[2020-09-12] MEDS: FUROSEMIDE 100 MG in SODIUM CHLORIDE 0.9% 90 ML IV SCH ×2 (07:00→16:09)
[2020-09-12] MEDS: IPRATROPIUM-ALBUTEROL 3 ML NEB INHALATION SCH ×4 (07:37→20:19)
[2020-09-12] MEDS: AMIODARONE 200 MG TAB PO SCH ×2 (07:58→20:45)
[2020-09-12] MEDS: ASPIRIN 81 MG PO SCH (07:58)
[2020-09-12] MEDS: METOPROLOL TARTRATE 50 MG TAB PO SCH ×2 (07:58→20:45)
[2020-09-12] MEDS: SODIUM BICARBONATE TAB 650 MG TAB PO SCH ×2 (07:59→20:45)
[2020-09-12] MEDS: FAMOTIDINE 20 MG/2 ML VIAL IV SCH ×2 (07:59→20:45)
--- NOTE | 2020-09-12 08:35 | P.PN ---
Subjective Progress Note Date: 09/12/20 This is a 64-year-old male patient, morbidly obese with biventricular failure, chronic systolic heart failure, chronic kidney disease, chronic itchy fibrillation and various other medical problems and comorbidities as will be discussed with him. The patient comes in with significant weight gain, volume overload, increased lower extremity edema, 1 in lower extremities more so on the left along with erythema and several episodes of the left lower extremity. The patient also has vesicles that are filled with fluid secondary to her increased subcutaneous emphysema mainly over the right lower flank area, and pressure points. For that reason, the patient was hospitalized. The patient was fine to be hypoxic. He is not known to have any home oxygen. He was placed on oxygen currently is up to 15 L of oxygen by nasal cannula. No history of COPD most of smoking. His chest x-ray was consistent with cardiac regular and pulmonary edema. EKG was consistent with chronic atrial fibrillation with a LBBB pattern. The patient's white cell count was as high as 21.6 . The patient had a proBNP level of 17,004 100. Troponins were 0.053 respectively. Creatinine initially was at 1.7. The patient was initially started on a combination of diuretics and antibiotics. The patient was started on IV cefepime. The culture from the wound is positive for strep. White cell count is improving. Nevertheless, the patient developed some worsening renal function. The patient developed an acute on top of chronic kidney disease. The patient was accordingly started on dobutamine today. The echo showing an ejection fraction of 20-25%. RV severely dilated. LV is also moderately dilated. PA pressure was 42 mmHg. On 09/10/2020, I'm seeing the patient for a follow-up. Overnight, the patient got transferred to the intensive care unit as the patient was having episodes of hypotension and his systolic blood pressure was dropping in the mid 70s. Note that the patient was being treated with a combination of dobutamine and Lasix. I had to bring him to the intensive care unit and the patient was started on levo fed for hemodynamic support. Is currently on levo fed running at 0.04 mcg/kg per minute. Chest x-ray still showing cardiomegaly. Clinically he does have some edema lower extremities bilaterally and also edema on his flanks and hips area. He is also being treated for this unless of the left lower extremity. This morning, he remains on dobutamine at 2.5 Jc respiratory per minute. Remains on norepinephrine infusion at low dose. He is still on Lasix drip running at 10 mg an hour. An arterial line will be established for adequate blood pressure monitoring. He also benefit from the PICC line. He remains on IV cefepime. White cell count is down to 11. His INR currently is at 2.0 and the patient has an underlying atrial fibrillation rhythm with a LBBB pattern. Creatinine is on the rise and is currently up to 3.84 with a BUN of 72. On examination, the cellulitis still present in the left lower extremity although the area and his left lower extremity is less erythematous. In addition, the patient is currently on BiPAP for respiratory support. BiPAP is running at a pressure of 10/5 cm of water with an FiO2 of 40%. He is quite interested the respirator and is able to generate adequate tidal volumes and no signs of any significant respiratory distress. No signs of any CO2 narcosis. 09/11/2020, the patient is improved clinically. There is improvement in his mentation. The patient is much more awake and interactive and is currently off the BiPAP. He is back on oxygen at 5 L per minute nasal cannula. He did utilize the BiPAP throughout the day yesterday as the patient was lethargic and insignificant degree of respiratory distress. At the same time, lines were established, the patient was started on a high dose of dobutamine at 5 mg/kg/m and the patient was also started on Lasix drip at 10 mg an hour. Norepinephrine is also being utilized for hemodynamic support which is currently running at 0.06 mcg/kg per minute. This improved his overall hemodynamics. His urine output gradually picked up and currently is producing urine output in the order of 100 mL an hour. His net fluid balance has been negative. Also, he remains on antibiotics regarding the left lower extremity cellulitis. The area looks improved and it's much less erythematous and red on today's evaluation. The swelling is also improving and his lower extremities bilaterally. His white cell count is currently down to 9 and the patient's renal function continues to improve. His creatinine today is down to 3.1 with a BUN of 17. Rest of the electrodes shows some mild metabolic acidosis with a serum bicarb of 20. The patient's INR today is at 3.2. No bleeding complications. He is quite stable. Tolerating diet. Moving all 4 extremities without any limitation. No altered mentation. His cardiac rhythm remains atrial fibrillation. On 09/12/2020, the patient continues to be rather stable and probably improving. This morning, he is up on a recliner. He is watching television. He is on 8 L of oxygen by nasal cannula. He was on BiPAP overnight at a pressure of 10/5 cm of water. This morning, he was transitioned back to high flow oxygen at 8 L. H e remains on dobutamine 5 mcg/kg per minute. He remains on norepinephrine infusion and this was gradually weaned off throughout the day yesterday and was turned off this morning. He is still on Lasix drip at 10 mg an hour. He is in a negative fluid balance of 1 L over the past 24 hours and the patient has shown improvement in his creatinine which is down to 2.5. Urine output is in order of 150 mL an hour. No fever. No chills. Several episodes of the lower extremities have been improving as stated earlier and the patient remains on broad-spectrum antibiotics. No Coumadin was given yesterday and INR today is at 3.1. He remains on cefepime for now. Previously obtain cultures have shown that traumatic strep group G and gram-negative bacillus in the lower extremity wound cultures. His white cell count is down to 8.9. He is tolerating his diet. No other significant events. His cardiac rhythm currently is a chair fibrillation. His weight is also down. Objective - Vital Signs Vital signs: Vital Signs Temp 98.1 F 09/12/20 04:00 Pulse 101 H 09/12/20 07:46 Resp 23 09/12/20 07:00 BP 112/78 09/11/20 21:00 Pulse Ox 93 L 09/12/20 07:00 Intake & Output 09/11/20 09/12/20 09/12/20 18:59 06:59 18:59 Intake Total 840.652 6652.037 108.07 Output Total 2250 1825 175 Balance -1357.757 -509.963 -66.93 Intake: IV 130 110 10 KVO 130 110 10 Intake, IV Titration 762.243 805.037 98.07 Amount DOBUTamine DRIP 500 mg In 250 210.453 Dextrose/Water 1 250ml. bag @ 2.5 MCG/KG/MIN 12. 653 mls/hr IV .[id number] [facility] Rx#:[id number] Furosemide 100 mg In 134.834 63.667 91 Sodium Chloride 0.9% 90 ml @ 10 MG/HR 10 mls/hr IV .Q10H [facility] Rx#: [id number] Norepinephrine 4 mg In 377.409 530.917 7.07 Sodium Chloride 0.9% 250 ml @ 0.05 MCG/KG/MIN 32. 137 mls/hr IV .Q7H55M [facility] Rx#:[id number] Oral 400 Output: Urine 2250 1825 175 Other: Voiding Method Indwelling Catheter Indwelling Catheter # Bowel Movements 1 1 ABP, PAP, CO, CI - Last Documented Arterial Blood Pressure 110/64 - Exam GENERAL EXAM: 10 alert and communicating on 8 L of oxygen by nasal cannula. The patient has a BMI of 56.5. HEAD: Normocephalic/atraumatic. EYES: Normal reaction of pupils, equal size. Conjunctiva pink, sclera white. NOSE: Clear with pink turbinates. THROAT: No erythema or exudates. The patient has a metabolic live 4 with significant crowding of the posterior oropharynx. NECK: No masses, no JVD, no thyroid enlargement, no adenopathy. CHEST: No chest wall deformity. Symmetrical expansion. Generalized macular rash on chest, abdomen, back and arms LUNGS: very diminished breath sounds over left chest, crackles over right lower lobe CVS: Irregular rate and rhythm, distant S1 and S2, no gallops, no murmurs, no rubs ABDOMEN: Soft, nontender, obese with macular rash all over the old abdomen. No hepatosplenomegaly, normal bowel sounds, no guarding or rigidity. EXTREMITIES: No clubbing, extensive edema involving bilateral lower extremities with cellulitis redness and tenderness left greater than right, onychomycosis, dry cracked skin on bilateral soles, no cyanosis, 1+ pulses and upper and lower extremities. this cellulites of the left lower extremities improving and the area is less red and erythematous MUSCULOSKELETAL: Muscle strength and tone normal. SPINE: No scoliosis or deformity SKIN: Generalized macular rash on chest abdomen and back CENTRAL NERVOUS SYSTEM: Alert and oriented -3. No focal deficits, tone is normal in all 4 extremities. PSYCHIATRIC: Alert and oriented -3. Appropriate affect. Intact judgment and insight. - Labs CBC & Chem 7: 09/12/20 04:05 09/12/20 04:05 Labs: Abnormal Lab Results - Last 24 Hours (Table) 09/12/20 09/12/20 09/12/20 Range/Units 04:05 04:05 04:05 RDW 16.4 H (11.5-15.5) % Plt Count 93 L (150-450) k/uL Lymphocytes # 0.3 L (1.0-4.8) k/uL PT 29.4 H (9.0-12.0) sec INR 3.1 H (<1.2) Sodium 136 L (137-145) mmol/L BUN 67 H (9-20) mg/dL Creatinine 2.51 H (0.66-1.25) mg/dL Glucose 116 H (74-99) mg/dL Microbiology - Last 24 Hours (Table) 09/07/20 17:45 Anaerobic Culture - Final Leg - Right 09/08/20 15:24 Blood Culture - Preliminary Blood No Growth after 72 hours Assessment and Plan Plan: #1. Acute hypoxemic respiratory failure related to acute exacerbation of systolic CHF. In fact the patient has biventricular failure. The patient has L V dysfunction with an ejection fraction of 20-25% in addition to IV failure. Has extensive anasarca and fluid overload. Nevertheless, the patient is also having issues with cellulitis of left lower extremity and acute on chronic kidney injury with diminished urine output.the patient is on a combination of dobutamine and Lasix drip. Norepinephrine is also being utilized for hemodynamic support. Urine output is improved. the patient is mobilizing the excess fluid. He is currently on 8 L of oxygen by nasal cannula. Nevertheless, his acute kidney injury is improving. His urine output is improved. His sepsis is also improved. He remains on dobutamine and Lasix drip. Dobutamine is at 5 mcg/kg per minute and the patient is also on Lasix drip at 10 mg an hour.. Noted the patient was also taken off the norepinephrine infusion. #2. bilateral lower extremity cellulitis, left greater than right with extensive redness, swelling and tenderness involving lower extremities, ID is on the case and the patient is receiving local wound care and the patient is on broad- spectrum antibiotics IV cefepime.cellulitis improving and the patient's white cell count is also dropped.wound cultures showing strep group G an additional gram Akhil negative bacillus and the patient is currently on IV cefepime. #3. Acute on chronic kidney disease, likely secondary to diuretics and cardiorenal factors, creatinine is improving, creatinine is down to 2.5 #4. Leukocytosis, improving #5. Chronic atrial fibrillation with an LBBB pattern, rate is controlled and the patient is also on long-term anticoagulation. INR therapeutic #6. Morbid obesity with features of obstructive sleep apnea. BMI is a 56.5 #7. Hypertension #8. Hyperlipidemia #9. Chronic lower extremity edema/wounds/venous stasis with episodic cellulitis #10. Coronary artery disease and ischemic cardiomyopathy with EF of less than 20% mild MR, mild TR, severe right ventricular and moderate left atrial enlargement and right-sided pressures of 42 mmHg, #11. Chronic atrial fibrillation #12. Hypothyroidism #13. Morbid obesity #14 chronic thrombocytopenia , stable platelet counts Plan Continue dobutamine to augment cardiac output, currently running at 5 mcg/kg per minute Continue norepinephrine and titrate the dose to maintain a mean artery pressure above 60, currently off pressors and the patient remains on Lasix drip at 10 mg an hour Continue Lasix drip at 10 mg an hour IV cefepime for Left lower extremity cellulitis which is clinically improving monitor his I's of the lower extremity. Keep the legs elevated and appropriate dressing and wraps Amiodarone loading and maintenance anticoagulation with warfarin hold for today and monitor the PT/INR, levels are therapeutic for now Lines have been established Clinically improved and more stable compared to yesterday We'll continue to follow make further recommendations based on his progress. Prognosis poor baseline above-mentioned comorbidities. We'll continue to follow up this patient along with cardiology and nephrology.
--- NOTE | 2020-09-12 08:40 | P.PN ---
Subjective Patient is seen in follow-up for acute kidney injury on chronic kidney disease. Currently maintained on dobutamine and Lasix drip. Urine output 150 mL an hour. Levophed discontinued. Denies chest pain or shortness of breath. Vital signs are stable. General: The patient appeared well nourished and normally developed. HEENT: Head exam is unremarkable. Neck is without jugular venous distension. LUNGS: Breath sounds decreased. HEART: Rate and Rhythm are regular. ABDOMEN: Soft, obese. EXTREMITITES: 1+ edema. Lower extremities wrapped. Objective - Vital Signs Vital signs: Vital Signs Temp 98.1 F 09/12/20 04:00 Pulse 101 H 09/12/20 07:46 Resp 23 09/12/20 07:00 BP 112/78 09/11/20 21:00 Pulse Ox 93 L 09/12/20 07:00 Intake & Output 09/11/20 09/12/20 09/12/20 18:59 06:59 18:59 Intake Total 817.379 6714.037 108.07 Output Total 2250 1825 175 Balance -1357.757 -509.963 -66.93 Intake: IV 130 110 10 KVO 130 110 10 Intake, IV Titration 762.243 805.037 98.07 Amount DOBUTamine DRIP 500 mg In 250 210.453 Dextrose/Water 1 250ml. bag @ 2.5 MCG/KG/MIN 12. 653 mls/hr IV .[id number] [facility] Rx#:[id number] Furosemide 100 mg In 134.834 63.667 91 Sodium Chloride 0.9% 90 ml @ 10 MG/HR 10 mls/hr IV .Q10H [facility] Rx#: [id number] Norepinephrine 4 mg In 377.409 530.917 7.07 Sodium Chloride 0.9% 250 ml @ 0.05 MCG/KG/MIN 32. 137 mls/hr IV .Q7H55M [facility] Rx#:[id number] Oral 400 Output: Urine 2250 1825 175 Other: Voiding Method Indwelling Catheter Indwelling Catheter # Bowel Movements 1 1 ABP, PAP, CO, CI - Last Documented Arterial Blood Pressure 110/64 - Labs CBC & Chem 7: 09/12/20 04:05 09/12/20 04:05 Labs: Abnormal Lab Results - Last 24 Hours (Table) 09/12/20 09/12/20 09/12/20 Range/Units 04:05 04:05 04:05 RDW 16.4 H (11.5-15.5) % Plt Count 93 L (150-450) k/uL Lymphocytes # 0.3 L (1.0-4.8) k/uL PT 29.4 H (9.0-12.0) sec INR 3.1 H (<1.2) Sodium 136 L (137-145) mmol/L BUN 67 H (9-20) mg/dL Creatinine 2.51 H (0.66-1.25) mg/dL Glucose 116 H (74-99) mg/dL Microbiology - Last 24 Hours (Table) 09/07/20 17:45 Anaerobic Culture - Final Leg - Right 09/08/20 15:24 Blood Culture - Preliminary Blood No Growth after 72 hours Assessment and Plan Plan: Assessment: 1. Acute kidney injury secondary to ATN secondary to cardiorenal syndrome. Now nonoliguric. Renal function better. Creatinine 2.51 today. 2. Chronic kidney disease stage IIIa. Baseline creatinine 1.2-1.3 secondary to nephrosclerosis. 3. Acute on chronic systolic CHF with ejection fraction of 20-25%. 4. Metabolic acidosis secondary to acute kidney injury. Maintained on oral bicarbonate. Better. 5. Volume overload. Improving with diuresis. Plan: Maintain dobutamine and Lasix drip. Maintain midodrine. Continue to monitor renal function and urine output. No need for renal replacement therapy at this time.
[2020-09-12] MEDS: allopurinoL 100 MG TAB PO SCH (12:00)
--- NOTE | 2020-09-12 16:24 | P.PN ---
Subjective Progress Note Date: 09/12/20 This 64-year-old gentleman with a severe cardiomyopathy ischemic heart disease and CHF and generalized anasarca is admitted to the hospital with increasing shortness of breath. Patient also had acute tubular necrosis and renal failure. He is on IV Lasix drip along with IV dobutamine and also Levophed. Patient urine output is improved. His mentation is improved. Attempts are being made to wean him off the Levophed. He is also started on midodrine. He is being treated with antibiotics for cellulitis of the leg. Patient is able to communicate. Appears to be less short of breath. We'll continue current management including IV Lasix and dobutamine. Prognosis still guarded 09/12/2020: This patient continues to improve. Seemed to be more alert and oriented. Urine output is good. He was obtained of Levophed. Patient is still on IV Lasix treated and also IV dobutamine at 5 mics. Patient is also on broad- spectrum antibiotics. Denies any chest pain or shortness of breath. He is in atrial fibrillation with moderately rapid ventricular response. I'm going to increase the dose of the amiodarone. Continue rest of the medications. Follow the nephrology and grader marker recommendations. Prognosis still guarded Objective - Vital Signs Vital signs: Vital Signs Temp 98.2 F 09/12/20 12:00 Pulse 105 H 09/12/20 15:25 Resp 22 09/12/20 15:00 BP 112/78 09/11/20 21:00 Pulse Ox 92 L 09/12/20 15:00 Intake & Output 09/11/20 09/12/20 09/12/20 18:59 06:59 18:59 Intake Total 203.813 0393.037 789.57 Output Total 2250 1825 1255 Balance -1357.757 -509.963 -465.43 Intake: IV 130 110 80 KVO 130 110 80 Intake, IV Titration 762.243 805.037 439.57 Amount DOBUTamine DRIP 500 mg In 250 210.453 250 Dextrose/Water 1 250ml. bag @ 2.5 MCG/KG/MIN 12. 653 mls/hr IV .[id number] [facility] Rx#:[id number] Furosemide 100 mg In 134.834 63.667 182.5 Sodium Chloride 0.9% 90 ml @ 10 MG/HR 10 mls/hr IV .Q10H [facility] Rx#: [id number] Norepinephrine 4 mg In 377.409 530.917 7.07 Sodium Chloride 0.9% 250 ml @ 0.05 MCG/KG/MIN 32. 137 mls/hr IV .Q7H55M [facility] Rx#:[id number] Oral 400 270 Output: Urine 2250 1825 1255 Other: Voiding Method Indwelling Catheter Indwelling Catheter Indwelling Catheter # Bowel Movements 1 1 ABP, PAP, CO, CI - Last Documented Arterial Blood Pressure 110/59 - Exam GENERAL EXAM: Patient is much more alert today and communicative HEENT: Normocephalic. Normal reaction of pupils, equal size, normal range of extraocular motion. No erythema or exudates in the throat. NECK: No masses, no nuchal rigidity. CHEST: No chest wall deformity. Diminished breath sounds Equal air entry with no crackles or wheeze. HEART: S1 and S2 normal with no audible mumurs or gallops. Regular rhythm, femorals equal on both sides.. ABDOMEN: No hepatosplenomegaly, normal bowel sounds, no guarding or rigidity. SKIN: No rashes CENTRAL NERVOUS SYSTEM: No focal deficits. EXTREMITIES: Wrapped with evidence of cellulitis - Labs CBC & Chem 7: 09/12/20 04:05 09/12/20 04:05 Labs: Abnormal Lab Results - Last 24 Hours (Table) 09/12/20 09/12/20 09/12/20 Range/Units 04:05 04:05 04:05 RDW 16.4 H (11.5-15.5) % Plt Count 93 L (150-450) k/uL Lymphocytes # 0.3 L (1.0-4.8) k/uL PT 29.4 H (9.0-12.0) sec INR 3.1 H (<1.2) Sodium 136 L (137-145) mmol/L BUN 67 H (9-20) mg/dL Creatinine 2.51 H (0.66-1.25) mg/dL Glucose 116 H (74-99) mg/dL Microbiology - Last 24 Hours (Table) 09/07/20 17:45 Anaerobic Culture - Final Leg - Right 09/08/20 15:24 Blood Culture - Preliminary Blood No Growth after 72 hours Assessment and Plan (1) Ischemic cardiomyopathy Current Visit: Yes Status: Acute Code(s): I25.5 - ISCHEMIC CARDIOMYOPATHY SNOMED Code(s): 297649792 (2) CHF exacerbation Current Visit: Yes Status: Acute Code(s): I50.9 - HEART FAILURE, UNSPECIFIED SNOMED Code(s): 105844848 (3) Acute renal failure Current Visit: No Status: Acute Code(s): N17.9 - ACUTE KIDNEY FAILURE, UNSPECIFIED SNOMED Code(s): 34942038 (4) Cellulitis and abscess of left leg Current Visit: No Status: Acute Code(s): L03.116 - CELLULITIS OF LEFT LOWER LIMB; L02.416 - CUTANEOUS ABSCESS OF LEFT LOWER LIMB SNOMED Code(s): 338035848 Plan: Patient is off Levophed. Continue IV Lasix and dobutamine for 24 more hours. Increase the dose of the amiodarone 2 600 mg daily for one week. Subsequently cut back the dose. Prognosis guarded
[2020-09-12] MEDS: TAMSULOSIN 0.4 MG CAP.ER.24H PO SCH (17:09)
[2020-09-12] MEDS ORDERED: WARFARIN 5 MG TAB PO ONE (18:00)
--- NOTE | 2020-09-12 21:12 | P.PN ---
Subjective Patient is a 64-year-old male with a known history of chronic atrial fibrillation on anticoagulation with warfarin, chronic CHF with systolic dysfun ction, hypertension, hyperlipidemia, history of my, hypothyroidism, stage III CKD, bilateral lower extremity venous insufficiency/venous stasis and previous history of cellulitis and other medical problems presents to ER with complaints of shortness of breath worsening for the past 2-4 weeks. Patient was also having increased leg swelling. No complaints of chest pain. Patient diagnosed with severe systolic CHF with ejection fraction of 20-25% with resultant acute hypoxic respiratory failure, patient is placed on dobutamine and Lasix drips. Also he needed some mild dose norepinephrine drip for blood pressure support. He is on cefepime for left leg cellulitis. Creatinine is improving 3.8 down to 3.1 today, his acute kidney injury secondary to cardiorenal syndrome He is on Coumadin for A. fib. INR is 3.2 today. Wound culture is growing Streptococcus and gram-negative bacilli today patient feels better with breathing more easily, he is needing 6 L of oxygen via nasal cannula Patient is hemodynamically stable. 09/12/2020 Patient's remains in the ICU, he states that his dyspnea is a slightly better, patient noticed to be tachypneic and he needed 8 liter/min of oxygen today compared to 6 L/m yesterday. He has left leg cellulitis and bilateral leg edema edges improving slightly. B oth legs are is wrapped He had to use BiPAP last night for a couple hours. INR is 3.2 and 3.1, creatinine coming down to 2.5. Wound culture is growing Streptococcus and gram-negative bacilli He remains on Lasix drip and dobutamine drip while little bit was discontinued today. He remains on cefepime, warfarin 5 mg given tonight per head of data. He is on Lasix and dobutamine drip and aspirin 81 mg. Objective - Vital Signs Vital signs: Vital Signs Temp 98.2 F 09/12/20 12:00 Pulse 105 H 09/12/20 15:25 Resp 22 09/12/20 15:00 BP 112/78 09/11/20 21:00 Pulse Ox 92 L 09/12/20 15:00 Intake & Output 09/11/20 09/12/20 09/12/20 18:59 06:59 18:59 Intake Total 659.008 9129.037 789.57 Output Total 2250 1825 1255 Balance -1357.757 -509.963 -465.43 Intake: IV 130 110 80 KVO 130 110 80 Intake, IV Titration 762.243 805.037 439.57 Amount DOBUTamine DRIP 500 mg In 250 210.453 250 Dextrose/Water 1 250ml. bag @ 2.5 MCG/KG/MIN 12. 653 mls/hr IV .[id number] [facility] Rx#:[id number] Furosemide 100 mg In 134.834 63.667 182.5 Sodium Chloride 0.9% 90 ml @ 10 MG/HR 10 mls/hr IV .Q10H [facility] Rx#: [id number] Norepinephrine 4 mg In 377.409 530.917 7.07 Sodium Chloride 0.9% 250 ml @ 0.05 MCG/KG/MIN 32. 137 mls/hr IV .Q7H55M [facility] Rx#:[id number] Oral 400 270 Output: Urine 2250 1825 1255 Other: Voiding Method Indwelling Catheter Indwelling Catheter Indwelling Catheter # Bowel Movements 1 1 ABP, PAP, CO, CI - Last Documented Arterial Blood Pressure 110/59 - Exam GENERAL: The patient is alert and oriented x3, not in any acute distress. Well developed, well nourished. HEENT: Pupils are round and equally reacting to light. EOMI. No scleral icterus. No conjunctival pallor. Normocephalic, atraumatic. No pharyngeal erythema. No thyromegaly. CARDIOVASCULAR: S1 and S2 present. No murmurs, rubs, or gallops. -PULMONARY: Chest is clear to auscultation, no wheezing or. Bilateral basal crepitation ABDOMEN: Soft, nontender, nondistended, normoactive bowel sounds. No palpable organomegaly. MUSCULOSKELETAL: No joint swelling or deformity. -EXTREMITIES: No cyanosis, clubbing, . Bilateral patellar like edema NEUROLOGICAL: Gross neurological examination did not reveal any focal deficits. SKIN: No rashes. no petechiae. - Labs CBC & Chem 7: 09/12/20 04:05 09/12/20 04:05 Labs: Abnormal Lab Results - Last 24 Hours (Table) 09/12/20 09/12/20 09/12/20 Range/Units 04:05 04:05 04:05 RDW 16.4 H (11.5-15.5) % Plt Count 93 L (150-450) k/uL Lymphocytes # 0.3 L (1.0-4.8) k/uL PT 29.4 H (9.0-12.0) sec INR 3.1 H (<1.2) Sodium 136 L (137-145) mmol/L BUN 67 H (9-20) mg/dL Creatinine 2.51 H (0.66-1.25) mg/dL Glucose 116 H (74-99) mg/dL Microbiology - Last 24 Hours (Table) 09/07/20 17:45 Anaerobic Culture - Final Leg - Right 09/08/20 15:24 Blood Culture - Preliminary Blood No Growth after 72 hours Assessment and Plan Assessment: Acute hypoxic respiratory failure due to acute CHF. Acute on chronic CHF with systolic dysfunction ejection fraction 5% as per TTE Bilateral lower extremity swelling with left leg cellulitis. Chronic atrial fibrillation on anticoagulation with warfarin Subtherapeutic Level. Coagulopathy secondary to Coumadin Mildly elevated troponin level likely due to demand ischemia with CHF and also complaining CK D Worsening Acute kidney injury likely due to cardiorenal. Chronic kidney disease stage III Hypertension Hyperlipidemia History of [place] Morbid obesity BMI 47.3 Plan: This is a pleasant 64 years old male who presents with severe CHF, left leg cellulitis and a KI. Continue with Lasix drip, monitor urine output. Monitor electrolytes. Cardiology and pulmonary/critical care team consult as well as nephrology team on the case Continue with dobutamine drip nicotine and pressor support as needed Continue with antibiotic, currently with cefepime Monitor INR while he is on Coumadin. Labs and medication were reviewed.. Continue same treatment. Continue with symptomatic treatment. Resume home medication. Monitor lytes and vitals. DVT and GI prophylaxis. Further recommendationsas per clinical course of the patient DVT prophylaxis: on Coumadin GI Prophylaxis: Pepcid Prognosis is guarded
--- NOTE | 2020-09-12 22:06 | PN ---
PROGRESS NOTE DATE OF SERVICE: 09/12/2020 REASON FOR FOLLOWUP: Bilateral lower extremity ulcer and cellulitis. INTERVAL HISTORY: Patient is afebrile. The patient is currently on nasal cannula oxygen. Denies having any chest pain, cough. No nausea, no vomiting. No abdominal pain or any worsening pain in the lower extremity. PHYSICAL EXAMINATION: Blood pressure 105/58, pulse of 107, temperature 98. He is 91% on 8 L nasal cannula. General description is a middle-aged male lying in bed in no distress. Respiratory system: Unlabored breathing, decreased intensity of breath sounds. No wheeze. HEART: S1, S2. Regular rate and rhythm. Abdomen soft, no tenderness. Bilateral lower extremities currently wrapped, no drainage on the dressing. LABS: Hemoglobin 13, white count 8.9, BUN of 67, creatinine is 2.51. DIAGNOSTIC IMPRESSION AND PLAN: Patient with bilateral lower extremity venostasis ulcer and cellulitis. Culture with Gram-negative and beta hemolytic strep. Patient is covered with cefepime. Local care with dry Aquacel dressing and Hermes wrap and monitor clinical course closely. MMODL / IJN: [id number] /
[2020-09-13] MEDS: FUROSEMIDE 100 MG in SODIUM CHLORIDE 0.9% 90 ML IV SCH ×2 (01:09→09:34)
[2020-09-13 03:49] LABS: INR 2.9 (<1.2); Prothrombin Time 28.2 sec (9.0-12.0)
[2020-09-13 03:55] LABS: Anisocytosis Slight; Basophils % (A) 1 %; Eosinophils # (A) 0.4 k/uL (0-0.7); Eosinophils % (A) 5 %; HCT 41.1 % (39.0-53.0); HGB 13.6 gm/dL (13.0-17.5); Lymphocytes # (A) 0.3 k/uL (1.0-4.8); Lymphocytes % (A) 4 %; MCH 30.5 pg (25.0-35.0); MCHC 33.1 g/dL (31.0-37.0); MCV 92.2 fL (80.0-100.0); Mean Platelet Volume 13.3; Monocytes # (A) 0.3 k/uL (0-1.0); Monocytes % (A) 4 %; Neutrophils # (A) 7.5 k/uL (1.3-7.7); Neutrophils % (A) 86 %; RBC 4.46 m/uL (4.30-5.90); RDW 16.2 % (11.5-15.5); WBC 8.8 k/uL (3.8-10.6)
[2020-09-13 03:57] LABS: Platelet Count 96 k/uL (150-450)
[2020-09-13 04:11] LABS: Albumin 3.1 g/dL (3.5-5.0); Calcium 8.6 mg/dL (8.4-10.2); Potassium 3.6 mmol/L (3.5-5.1); Total Bilirubin 2.1 mg/dL (0.2-1.3); Total Protein 5.9 g/dL (6.3-8.2)
[2020-09-13] MEDS ORDERED: Potassium Replacement Protocol 1 EACH MISC MISCELLANE PRN (06:10)
[2020-09-13] MEDS: CEFEPIME 1 GM in SODIUM CHLORIDE 0.9% 50 ML IVPB SCH ×2 (06:13→17:15)
[2020-09-13] MEDS: NOREPINEPHRINE 4 MG in SODIUM CHLORIDE 0.9% 250 ML IV SCH ×2 (06:14→16:38)
[2020-09-13] MEDS: LEVOTHYROXINE 100 MCG TAB PO SCH (06:14)
[2020-09-13] MEDS: POTASSIUM CHLORIDE ER 20 MEQ TAB.ER PO SCH ×2 (06:14→07:03)
[2020-09-13] MEDS: MIDODRINE 5 MG TAB PO SCH ×3 (07:03→17:15)
[2020-09-13] MEDS: IPRATROPIUM-ALBUTEROL 3 ML NEB INHALATION SCH ×4 (07:13→19:50)
[2020-09-13] MEDS: AMIODARONE 200 MG TAB PO SCH ×2 (08:04→18:40)
[2020-09-13] MEDS: FAMOTIDINE 20 MG/2 ML VIAL IV SCH (08:04)
[2020-09-13] MEDS: ASPIRIN 81 MG PO SCH (08:05)
[2020-09-13] MEDS: METOPROLOL TARTRATE 50 MG TAB PO SCH ×2 (08:05→18:39)
[2020-09-13] MEDS: SODIUM BICARBONATE TAB 650 MG TAB PO SCH ×2 (08:06→21:15)
--- NOTE | 2020-09-13 08:25 | XR ---
EXAMINATION TYPE: XR chest 1V portable DATE OF EXAM: 09/13/2020 Comparison: 09/12/2020 Clinical History: 64-year-old male pulm edema Findings: Heart is enlarged. Interstitial densities remain. Left base underpenetrated and not well assessed. Pa tchy right basilar opacity remains. Impression: Cardiomegaly and interstitial changes, possible mild interstitial pulmonary edema, relatively stable to prior. Mild patchy atelectasis or consolidation at the right base is also similar.
--- NOTE | 2020-09-13 08:48 | P.PN ---
Subjective Patient is seen in follow-up for acute kidney injury on chronic kidney disease. Currently maintained on dobutamine and Lasix drip. Urine output about 100-150 mL an hour Denies chest pain or shortness of breath. Oral intake fair. Vital signs are stable. General: The patient appeared well nourished and normally developed. HEENT: Head exam is unremarkable. Neck is without jugular venous distension. LUNGS: Breath sounds decreased. HEART: Rate and Rhythm are regular. ABDOMEN: Soft, obese. EXTREMITITES: 1+ edema. Lower extremities wrapped. Objective - Vital Signs Vital signs: Vital Signs Temp 97.9 F 09/13/20 04:00 Pulse 99 09/13/20 07:27 Resp 28 H 09/13/20 07:00 BP 111/97 09/13/20 07:00 Pulse Ox 90 L 09/13/20 07:00 Intake & Output 09/12/20 09/13/20 09/13/20 18:59 06:59 18:59 Intake Total 1004.57 449.254 10 Output Total 1880 1325 150 Balance -875.43 -875.746 -140 Weight 168.4 kg Intake: IV 120 110 10 KVO 120 110 10 Intake, IV Titration 464.57 339.254 Amount Cefepime 1 gm In Sodium 25.0 Chloride 0.9% 50 ml @ 12. 5 mls/hr IVPB BID@0600, 1800 [facility] Rx#:[id number] DOBUTamine DRIP 500 mg In 250 249.254 Dextrose/Water 1 250ml. bag @ 2.5 MCG/KG/MIN 12. 653 mls/hr IV .[id number] [facility] Rx#:[id number] Furosemide 100 mg In 182.5 90 Sodium Chloride 0.9% 90 ml @ 10 MG/HR 10 mls/hr IV .Q10H [facility] Rx#: [id number] Norepinephrine 4 mg In 7.07 Sodium Chloride 0.9% 250 ml @ 0.05 MCG/KG/MIN 32. 137 mls/hr IV .Q7H55M [facility] Rx#:[id number] Oral 420 Output: Urine 1880 1325 150 Other: Voiding Method Indwelling Catheter Indwelling Catheter Indwelling Catheter ABP, PAP, CO, CI - Last Documented Arterial Blood Pressure 127/75 - Labs CBC & Chem 7: 09/13/20 03:25 09/13/20 03:25 Labs: Abnormal Lab Results - Last 24 Hours (Table) 09/13/20 09/13/20 09/13/20 Range/Units 03:25 03:25 03:25 RDW 16.2 H (11.5-15.5) % Plt Count 96 L (150-450) k/uL Lymphocytes # 0.3 L (1.0-4.8) k/uL PT 28.2 H (9.0-12.0) sec INR 2.9 H (<1.2) BUN 60 H (9-20) mg/dL Creatinine 2.00 H (0.66-1.25) mg/dL Total Bilirubin 2.1 H (0.2-1.3) mg/dL Total Protein 5.9 L (6.3-8.2) g/dL Albumin 3.1 L (3.5-5.0) g/dL Microbiology - Last 24 Hours (Table) 09/08/20 15:24 Blood Culture - Preliminary Blood No Growth after 96 hours Assessment and Plan Plan: Assessment: 1. Acute kidney injury secondary to ATN secondary to cardiorenal syndrome. Now nonoliguric. Renal function better. Creatinine 2.0 today. 2. Chronic kidney disease stage IIIa. Baseline creatinine 1.2-1.3 secondary to nephrosclerosis. 3. Acute on chronic systolic CHF with ejection fraction of 20-25%. 4. Metabolic acidosis secondary to acute kidney injury. Maintained on oral bicarbonate. Better. 5. Volume overload. Improving with diuresis. 6. Hypokalemia from diuresis. Replaced. Plan: Maintain dobutamine and Lasix drip. Maintain midodrine - hold for systolic blood pressure greater than 110. Continue to monitor renal function and urine output. No need for renal replacement therapy at this time.
[2020-09-13] MEDS: DOBUTamine DRIP 500 MG in DEXTROSE/WATER 1 250ML.BAG IV SCH ×2 (09:34→20:38)
--- NOTE | 2020-09-13 10:16 | P.PN ---
Subjective Patient is a 64-year-old male with a known history of chronic atrial fibrillation on anticoagulation with warfarin, chronic CHF with systolic dysfun ction, hypertension, hyperlipidemia, history of my, hypothyroidism, stage III CKD, bilateral lower extremity venous insufficiency/venous stasis and previous history of cellulitis and other medical problems presents to ER with complaints of shortness of breath worsening for the past 2-4 weeks. Patient was also having increased leg swelling. No complaints of chest pain. Patient diagnosed with severe systolic CHF with ejection fraction of 20-25% with resultant acute hypoxic respiratory failure, patient is placed on dobutamine and Lasix drips. Also he needed some mild dose norepinephrine drip for blood pressure support. He is on cefepime for left leg cellulitis. Creatinine is improving 3.8 down to 3.1 today, his acute kidney injury secondary to cardiorenal syndrome He is on Coumadin for A. fib. INR is 3.2 today. Wound culture is growing Streptococcus and gram-negative bacilli today patient feels better with breathing more easily, he is needing 6 L of oxygen via nasal cannula Patient is hemodynamically stable. 09/12/2020 Patient's remains in the ICU, he states that his dyspnea is a slightly better, patient noticed to be tachypneic and he needed 8 liter/min of oxygen today compared to 6 L/m yesterday. He has left leg cellulitis and bilateral leg edema edges improving slightly. B oth legs are is wrapped He had to use BiPAP last night for a couple hours. INR is 3.2 and 3.1, creatinine coming down to 2.5. Wound culture is growing Streptococcus and gram-negative bacilli He remains on Lasix drip and dobutamine drip while little bit was discontinued today. He remains on cefepime, warfarin 5 mg given tonight per learning and development assistant. He is on Lasix and dobutamine drip and aspirin 81 mg. 09/13/2020 Patient Wanted to hurt in the ICU currently. His diuresing well while he is on Lasix and dobutamine drip. No more need for Levophed drip. However he still short of breath at rest, improved since admission. He is on 8 L/m of oxygen and is on cannula this morning. He has bilateral leg swelling which are improving as well. His INR is 2.9 after he got 5 units of Coumadin last night, creatinine improving down to 2.0 today. He also continued on antibiotics with cefepime, wound culture showing beta- hemolytic streptococcus and gram-negative bacilli, final results still pending Objective - Vital Signs Vital signs: Vital Signs Temp 97.9 F 09/13/20 08:00 Pulse 103 H 09/13/20 10:00 Resp 16 09/13/20 10:00 BP 112/47 09/13/20 10:00 Pulse Ox 99 09/13/20 10:00 Intake & Output 09/12/20 09/13/20 09/13/20 18:59 06:59 18:59 Intake Total 1004.57 449.254 374.167 Output Total 1880 1325 750 Balance -875.43 -875.746 -375.833 Weight 168.4 kg Intake: IV 120 110 40 KVO 120 110 40 Intake, IV Titration 464.57 339.254 334.167 Amount Cefepime 1 gm In Sodium 25.0 Chloride 0.9% 50 ml @ 12. 5 mls/hr IVPB BID@0600, 1800 [facility] Rx#:[id number] DOBUTamine DRIP 500 mg In 250 249.254 250 Dextrose/Water 1 250ml. bag @ 2.5 MCG/KG/MIN 12. 653 mls/hr IV .[id number] [facility] Rx#:[id number] Furosemide 100 mg In 182.5 90 84.167 Sodium Chloride 0.9% 90 ml @ 10 MG/HR 10 mls/hr IV .Q10H [facility] Rx#: [id number] Norepinephrine 4 mg In 7.07 Sodium Chloride 0.9% 250 ml @ 0.05 MCG/KG/MIN 32. 137 mls/hr IV .Q7H55M [facility] Rx#:[id number] Oral 420 Output: Urine 1880 1325 750 Other: Voiding Method Indwelling Catheter Indwelling Catheter Indwelling Catheter ABP, PAP, CO, CI - Last Documented Arterial Blood Pressure 137/69 - Exam GENERAL: The patient is alert and oriented x3, not in any acute distress. Well developed, well nourished. HEENT: Pupils are round and equally reacting to light. EOMI. No scleral icterus. No conjunctival pallor. Normocephalic, atraumatic. No pharyngeal erythema. No thyromegaly. CARDIOVASCULAR: S1 and S2 present. No murmurs, rubs, or gallops. -PULMONARY: Chest is clear to auscultation, no wheezing or. Bilateral basal crepitation ABDOMEN: Soft, nontender, nondistended, normoactive bowel sounds. No palpable organomegaly. MUSCULOSKELETAL: No joint swelling or deformity. -EXTREMITIES: No cyanosis, clubbing, . Bilateral patellar like edema NEUROLOGICAL: Gross neurological examination did not reveal any focal deficits. SKIN: No rashes. no petechiae. - Labs CBC & Chem 7: 09/13/20 03:25 09/13/20 03:25 Labs: Abnormal Lab Results - Last 24 Hours (Table) 09/13/20 09/13/20 09/13/20 Range/Units 03:25 03:25 03:25 RDW 16.2 H (11.5-15.5) % Plt Count 96 L (150-450) k/uL Lymphocytes # 0.3 L (1.0-4.8) k/uL PT 28.2 H (9.0-12.0) sec INR 2.9 H (<1.2) BUN 60 H (9-20) mg/dL Creatinine 2.00 H (0.66-1.25) mg/dL Total Bilirubin 2.1 H (0.2-1.3) mg/dL Total Protein 5.9 L (6.3-8.2) g/dL Albumin 3.1 L (3.5-5.0) g/dL Microbiology - Last 24 Hours (Table) 09/08/20 15:24 Blood Culture - Preliminary Blood No Growth after 96 hours Assessment and Plan Assessment: Acute hypoxic respiratory failure due to acute CHF. Acute on chronic CHF with systolic dysfunction ejection fraction 2025% as per TTE Bilateral lower extremity swelling with left leg cellulitis. Chronic atrial fibrillation on anticoagulation with warfarin Subtherapeutic Level. Coagulopathy secondary to Coumadin Mildly elevated troponin level likely due to demand ischemia with CHF and also c omplaining CK D Worsening Acute kidney injury likely due to cardiorenal. Chronic kidney disease stage III Hypertension Hyperlipidemia History of [place] Morbid obesity BMI 47.3 Plan: This is a pleasant 64 years old male who presents with severe CHF, left leg cellulitis and LELAND. Continue with Lasix drip, monitor urine output. Monitor electrolytes. Cardiology and pulmonary/critical care team consult as well as nephrology team on the case Continue with dobutamine drip nicotine and pressor support as needed Continue with antibiotic, currently with cefepime Monitor INR while he is on Coumadin. Labs and medication were reviewed.. Continue same treatment. Continue with sy mptomatic treatment. Resume home medication. Monitor lytes and vitals. DVT and GI prophylaxis. Further recommendationsas per clinical course of the patient DVT prophylaxis: on Coumadin GI Prophylaxis: Pepcid Prognosis is guarded
--- NOTE | 2020-09-13 10:37 | P.PN ---
Subjective HISTORY OF PRESENTING ILLNESS This is a pleasant 64-year-old male past medical history significant for chronic persistent atrial fibrillation on warfarin, dilated cardiomyopathy, chronic systolic heart failure, hypertension, COPD, dyslipidemia and chronic kidney disease. He follows in the office with Dr. Goodwin. We have been asked to see in consultation for heart failure. He presented to the hospital with a 3 week history of worsening shortness of breath, lower extremity edema and weight gain. He states his activity level has been decreased due to his breathing and he has gained 40lbs in the previous 6 months. He saw his PCP yesterday and was sent in for diuresis. He is seen and examined sitting up in bed. He is tachyneic at rest but maintaining his oxygen saturations. He has been started on IV diuretics. 09/10/2020 Pt seen and examined sitting up in recliner in no acute distress. He denies worsening shortness of breath, but also does not feel much improvement. He has no chest pain, dizziness or palpitations. Blood pressure 112/47 heart rate 103 afebrile and maintaining oxygen saturation on room air. Laboratory data r eviewed, WBC 8.8, hemoglobin 13.6, platelets 96, INR 2.9, sodium 137, potassium 3.6, creatinine 2.0. 24-hour urine output is 3.2 L. Levophed drip was held this morning. Chest xray reveals mild interstitial pulmonary edema and consolidation at the right base similar to previous. PHYSICAL EXAMINATION CONSTITUTIONAL: Mild respiratory distress. Morbidly obese. HEENT: Head is normocephalic. Pupils are equal, round. Sclerae anicteric. Mucous membranes of the mouth are moist. No JVD. No carotid bruit. CHEST EXAMINATION: Expiratory wheezes, scattered rhonchi, no rales. No chest wall tenderness is noted on palpation or with deep breathing. HEART EXAMINATION: Irregular rate and rhythm. S1, S2 heard. No murmurs, gallops or rub. EXTREMITIES: 2+ peripheral pulses, 2+ bilateral lower extremity pitting edema with erythema, dressings in place bilateral lower extremities and no calf tenderness. ASSESSMENT Acute on chronic systolic heart failure Chronic persistent atrial fibrillation on long-term anticoagulation with variable ventricular rates Hypertension Hyperkalemia Thrombocytopenia Troponin leak not indicative of myocardial ischemia, likely secondary to a combination of acute heart failure and chronic kidney disease Cellulitus Chronic kidney disease COPD Morbid obesity, BMI 47 PLAN Continue current medical regimen with amiodarone for rate control along with beta blockers as tolerated. Lasix and dobutamine infusions ongoing. Follow renal function and electrolytes in the morning. Continue amiodarone 400 mg BID until September 22 then cut in half at that time. Further recommendations to follow based on clinical course. Nurse Practitioner note has been reviewed, I agree with a documented findings and plan of care. Patient was seen and examined. Objective - Vital Signs Vital signs: Vital Signs Temp 97.9 F 09/13/20 08:00 Pulse 103 H 09/13/20 10:00 Resp 16 09/13/20 10:00 BP 112/47 09/13/20 10:00 Pulse Ox 99 09/13/20 10:00 Intake & Output 09/12/20 09/13/20 09/13/20 18:59 06:59 18:59 Intake Total 1004.57 449.254 374.167 Output Total 1880 1325 750 Balance -875.43 -875.746 -375.833 Weight 168.4 kg Intake: IV 120 110 40 KVO 120 110 40 Intake, IV Titration 464.57 339.254 334.167 Amount Cefepime 1 gm In Sodium 25.0 Chloride 0.9% 50 ml @ 12. 5 mls/hr IVPB BID@0600, 1800 [facility] Rx#:[id number] DOBUTamine DRIP 500 mg In 250 249.254 250 Dextrose/Water 1 250ml. bag @ 2.5 MCG/KG/MIN 12. 653 mls/hr IV .[id number] [facility] Rx#:[id number] Furosemide 100 mg In 182.5 90 84.167 Sodium Chloride 0.9% 90 ml @ 10 MG/HR 10 mls/hr IV .Q10H [facility] Rx#: [id number] Norepinephrine 4 mg In 7.07 Sodium Chloride 0.9% 250 ml @ 0.05 MCG/KG/MIN 32. 137 mls/hr IV .[id number] [facility] Rx#:[id number] Oral 420 Output: Urine 1880 1325 750 Other: Voiding Method Indwelling Catheter Indwelling Catheter Indwelling Catheter ABP, PAP, CO, CI - Last Documented Arterial Blood Pressure 137/69 - Labs CBC & Chem 7: 09/13/20 03:25 09/13/20 03:25 Labs: Abnormal Lab Results - Last 24 Hours (Table) 09/13/20 09/13/20 09/13/20 Range/Units 03:25 03:25 03:25 RDW 16.2 H (11.5-15.5) % Plt Count 96 L (150-450) k/uL Lymphocytes # 0.3 L (1.0-4.8) k/uL PT 28.2 H (9.0-12.0) sec INR 2.9 H (<1.2) BUN 60 H (9-20) mg/dL Creatinine 2.00 H (0.66-1.25) mg/dL Total Bilirubin 2.1 H (0.2-1.3) mg/dL Total Protein 5.9 L (6.3-8.2) g/dL Albumin 3.1 L (3.5-5.0) g/dL Microbiology - Last 24 Hours (Table) 09/08/20 15:24 Blood Culture - Preliminary Blood No Growth after 96 hours
[2020-09-13] MEDS: allopurinoL 100 MG TAB PO SCH (11:54)
--- NOTE | 2020-09-13 12:57 | P.PN ---
Subjective Progress Note Date: 09/13/20 Principal diagnosis: Acute hypoxic respiratory failure secondary to acute exacerbation of systolic congestive heart failure. This is a 64-year-old male patient, morbidly obese with biventricular failure, chronic systolic heart failure, chronic kidney disease, chronic itchy fibri llation and various other medical problems and comorbidities as will be discussed with him. The patient comes in with significant weight gain, volume overload, increased lower extremity edema, 1 in lower extremities more so on the left along with erythema and several episodes of the left lower extremity. The patient also has vesicles that are filled with fluid secondary to her increased subcutaneous emphysema mainly over the right lower flank area, and pressure points. For that reason, the patient was hospitalized. The patient was fine to be hypoxic. He is not known to have any home oxygen. He was placed on oxygen currently is up to 15 L of oxygen by nasal cannula. No history of COPD most of smoking. His chest x-ray was consistent with cardiac regular and pulmonary edema. EKG was consistent with chronic atrial fibrillation with a LBBB pattern. The patient's white cell count was as high as 21.6 . The patient had a proBNP level of 17,004 100. Troponins were 0.053 respectively. Creatinine initially was at 1.7. The patient was initially started on a combination of diuretics and antibiotics. The patient was started on IV cefepime. The culture from the wound is positive for strep. White cell count is improving. Nevertheless, the patient developed some worsening renal function. The patient developed an acute on top of chronic kidney disease. The patient was accordingly started on dobutamine today. The echo showing an ejection fraction of 20-25%. RV severely dilated. LV is also moderately dilated. PA pressure was 42 mmHg. On 09/10/2020, I'm seeing the patient for a follow-up. Overnight, the patient got transferred to the intensive care unit as the patient was having episodes of hypotension and his systolic blood pressure was dropping in the mid 70s. Note that the patient was being treated with a combination of dobutamine and Lasix. I had to bring him to the intensive care unit and the patient was started on levo fed for hemodynamic support. Is currently on levo fed running at 0.04 mcg/kg per minute. Chest x-ray still showing cardiomegaly. Clinically he does have some edema lower extremities bilaterally and also edema on his flanks and hips area. He is also being treated for this unless of the left lower extremity. This morning, he remains on dobutamine at 2.5 Jc respiratory per minute. Remains on norepinephrine infusion at low dose. He is still on Lasix drip running at 10 mg an hour. An arterial line will be established for adequate blood pressure monitoring. He also benefit from the PICC line. He remains on IV cefepime. White cell count is down to 11. His INR currently is at 2.0 and the patient has an underlying atrial fibrillation rhythm with a LBBB pattern. Creatinine is on the rise and is currently up to 3.84 with a BUN of 72. On examination, the cellulitis still present in the left lower extremity although the area and his left lower extremity is less erythematous. In addition, the patient is currently on BiPAP for respiratory support. BiPAP is running at a pressure of 10/5 cm of water with an FiO2 of 40%. He is quite interested the respirator and is able to generate adequate tidal volumes and no signs of any significant respiratory distress. No signs of any CO2 narcosis. 09/11/2020, the patient is improved clinically. There is improvement in his mentation. The patient is much more awake and interactive and is currently off the BiPAP. He is back on oxygen at 5 L per minute nasal cannula. He did utilize the BiPAP throughout the day yesterday as the patient was lethargic and insignificant degree of respiratory distress. At the same time, lines were established, the patient was started on a high dose of dobutamine at 5 mg/kg/m and the patient was also started on Lasix drip at 10 mg an hour. Norepinephrine is also being utilized for hemodynamic support which is currently running at 0.06 mcg/kg per minute. This improved his overall hemodynamics. His urine output gradually picked up and currently is producing urine output in the order of 100 mL an hour. His net fluid balance has been negative. Also, he remains on antibiotics regarding the left lower extremity cellulitis. The area looks improved and it's much less erythematous and red on today's evaluation. The swelling is also improving and his lower extremities bilaterally. His white cell count is currently down to 9 and the patient's renal function continues to improve. His creatinine today is down to 3.1 with a BUN of 17. Rest of the electrodes shows some mild metabolic acidosis with a serum bicarb of 20. The patient's INR today is at 3.2. No bleeding complications. He is quite stable. Tolerating diet. Moving all 4 extremities without any limitation. No altered mentation. His cardiac rhythm remains atrial fibrillation. On 09/12/2020, the patient continues to be rather stable and probably improving. This morning, he is up on a recliner. He is watching television. He is on 8 L of oxygen by nasal cannula. He was on BiPAP overnight at a pressure of 10/5 cm of water. This morning, he was transitioned back to high flow oxygen at 8 L. He remains on dobutamine 5 mcg/kg per minute. He remains on norepinephrine infusion and this was gradually weaned off throughout the day yesterday and was turned off this morning. He is still on Lasix drip at 10 mg an hour. He is in a negative fluid balance of 1 L over the past 24 hours and the patient has shown improvement in his creatinine which is down to 2.5. Urine output is in order of 150 mL an hour. No fever. No chills. Several episodes of the lower extremities have been improving as stated earlier and the patient remains on broad-spectrum antibiotics. No Coumadin was given yesterday and INR today is at 3.1. He remains on cefepime for now. Previously obtain cultures have shown that traumatic strep group G and gram-negative bacillus in the lower extremity wound cultures. His white cell count is down to 8.9. He is tolerating his diet. No other significant events. His cardiac rhythm currently is a chair fibrillation. His weight is also down. Patient was reevaluated today on 09/13/2020, remains in the ICU, remains on Lasix drip at 10 mg per hour is also on the Peter X at 5 mcg/kg/m. IV fluid is at KVO, patient is on 8 L high flow nasal cannula with O2 sat showed 91%, is also intermittently on BiPAP 10/5 at 50% FiO2 especially at bedtime. Patient is being treated for acute systolic congestive heart failure with ejection fraction of 20-25%, and he has clearly anasarca. Chest x-ray continues to show heart nahid lure and cardiomegaly. Patient is on cefepime for lower extremity cellulitis. Since admission, the patient is steadily improving clinically, but clearly not quite ready to be discharged home yet. CBC is relatively normal INR is 2.9. Electrolytes are normal BUN is 60 improving creatinine is 2.0 improving. Chest x-ray continues to show congestive heart failure. Objective - Vital Signs Vital signs: Vital Signs Temp 97.8 F 09/13/20 12:00 Pulse 94 09/13/20 12:00 Resp 16 09/13/20 12:00 BP 108/70 09/13/20 12:00 Pulse Ox 90 L 09/13/20 12:00 Intake & Output 09/12/20 09/13/20 09/13/20 18:59 06:59 18:59 Intake Total 1004.57 449.254 394.167 Output Total 1880 1325 1050 Balance -875.43 -875.746 -655.833 Weight 168.4 kg 168.4 kg Intake: IV 120 110 60 KVO 120 110 60 Intake, IV Titration 464.57 339.254 334.167 Amount Cefepime 1 gm In Sodium 25.0 Chloride 0.9% 50 ml @ 12. 5 mls/hr IVPB BID@0600, 1800 [facility] Rx#:[id number] DOBUTamine DRIP 500 mg In 250 249.254 250 Dextrose/Water 1 250ml. bag @ 2.5 MCG/KG/MIN 12. 653 mls/hr IV .[id number] [facility] Rx#:[id number] Furosemide 100 mg In 182.5 90 84.167 Sodium Chloride 0.9% 90 ml @ 10 MG/HR 10 mls/hr IV .Q10H [facility] Rx#: [id number] Norepinephrine 4 mg In 7.07 Sodium Chloride 0.9% 250 ml @ 0.05 MCG/KG/MIN 32. 137 mls/hr IV .[id number] [facility] Rx#:[id number] Oral 420 Output: Urine 1880 1325 1050 Other: Voiding Method Indwelling Catheter Indwelling Catheter Indwelling Catheter ABP, PAP, CO, CI - Last Documented Arterial Blood Pressure 130/68 - Exam Physical Exam: Revealed 64-year-old white male obese in no distress. On 8 L high flow cannula. Head: Atraumatic, normocephalic. Dry mucous membranes. HEENT: Short obese neck. [Neck is supple.] [No neck masses.] [No thyromegaly.] [No JVD.EOMI, nonicteric. PERRLA, Chest: Symmetrical chest expansion diminished breath sounds and crackles at the bases. Cardiac Exam: Distant S1 and S2,, no S3 gallop, no murmur.] Abdomen: [Obese, Soft, nontender, no megaly, no rebound, no guarding, normal bowel sounds.] Extremities: [No clubbing, 2+ bipedal edema, no cyanosis.] Good Pulses bilaterally. Neurological Exam: [No focal neurologic deficit.] Alert oriented 3. Psychiatric: Normal mood affect and normal mental status examination. Skin: Cellulitis and erythema of the left lower extremity seems to be steadily improving - Labs CBC & Chem 7: 09/13/20 03:25 09/13/20 03:25 Labs: Abnormal Lab Results - Last 24 Hours (Table) 09/13/20 09/13/20 09/13/20 Range/Units 03:25 03:25 03:25 RDW 16.2 H (11.5-15.5) % Plt Count 96 L (150-450) k/uL Lymphocytes # 0.3 L (1.0-4.8) k/uL PT 28.2 H (9.0-12.0) sec INR 2.9 H (<1.2) BUN 60 H (9-20) mg/dL Creatinine 2.00 H (0.66-1.25) mg/dL Total Bilirubin 2.1 H (0.2-1.3) mg/dL Total Protein 5.9 L (6.3-8.2) g/dL Albumin 3.1 L (3.5-5.0) g/dL Microbiology - Last 24 Hours (Table) 09/08/20 15:24 Blood Culture - Preliminary Blood No Growth after 96 hours Assessment and Plan Assessment: Impression: Acute hypoxic respiratory failure secondary to acute exacerbation of systolic congestive heart failure. Patient remains on Lasix drip at 10 mg per hour and Dobutrex at 5 mcg/kg/m. Clinically the patient is improving. Bilateral lower extremity cellulitis, left greater than right. Remains on broad-spectrum antibiotics. Patient is on cefepime. Acute on chronic kidney injury, I believe the patient has cardiorenal syndrome, improving with Dobutrex and Lasix drip. Leukocytosis secondary to cellulitis. Chronic atrial fibrillation with left bundle branch block pattern. Morbid obesity with BMI of 56.5. Benign essential hypertension. Coronary artery disease/ischemic cardiomyopathy Hypothyroidism. Dyslipidemia. Suspect obstructive sleep apnea syndrome. Patient utilizes BiPAP at night. Recommendation: Continue present supportive care measures. Continue Dobutrex Continue Lasix drip Continue to monitor daily electrolytes and renal profile. BiPAP at night. And as needed. Continue anticoagulation therapy patient is on Coumadin. Continue amiodarone. And Coumadin continue metoprolol. Use norepinephrine if necessary presently is off norepinephrine. We'll continue to follow. Prognosis remains relatively guarded. Time with Patient: Less than 30
[2020-09-13] MEDS: TAMSULOSIN 0.4 MG CAP.ER.24H PO SCH (17:15)
[2020-09-13] MEDS ORDERED: WARFARIN 5 MG TAB PO ONE (18:00)
--- NOTE | 2020-09-13 18:32 | PN ---
PROGRESS NOTE DATE OF SERVICE: 09/13/2020 REASON FOR FOLLOWUP VISIT: Bilateral lower extremity deep venostasis ulcer and cellulitis. INTERVAL HISTORY: The patient is afebrile. The patient is requiring BiPAP. The patient denies having any chest pain or any worsening cough. No vomiting. No abdominal pain or any worsening pain in the lower extremity. PHYSICAL EXAMINATION: Blood pressure 114/73 with a pulse of 103, temperature is 97.8. General description is a middle-aged male lying in bed in no distress. Respiratory system: Unlabored breathing, decreased intensity of breath sounds. No wheeze. Heart: S1, S2. Regular rhythm. Abdomen: Soft, nontender. The legs are currently wrapped up, no obvious drainage on the dressing. LABS: Hemoglobin 13 0.1, white count 8.8. BUN of 60, creatinine 2.0. Local culture with Gram-negative and group G strep. DIAGNOSTIC IMPRESSION AND PLAN: Patient with bilateral lower extremity venostasis ulcer and cellulitis in this patient covered with cefepime. Local wound care with dry Aquacel dressing and Hermes wrap and monitor clinical course closely. MMODL / IJN: [id number] /
[2020-09-14] MEDS: NOREPINEPHRINE 4 MG in SODIUM CHLORIDE 0.9% 250 ML IV SCH ×4 (01:53→22:06)
[2020-09-14] MEDS: FUROSEMIDE 100 MG in SODIUM CHLORIDE 0.9% 90 ML IV SCH (03:15)
[2020-09-14] MEDS: CEFEPIME 1 GM in SODIUM CHLORIDE 0.9% 50 ML IVPB SCH ×2 (05:10→18:14)
[2020-09-14 05:19] LABS: Anisocytosis Slight; HCT 40.7 % (39.0-53.0); HGB 13.2 gm/dL (13.0-17.5); MCHC 32.5 g/dL (31.0-37.0); MCV 92.2 fL (80.0-100.0); Platelet Count 96 k/uL (150-450); RBC 4.41 m/uL (4.30-5.90); RDW 16.1 % (11.5-15.5); WBC 11.2 k/uL (3.8-10.6)
[2020-09-14 05:31] LABS: Calcium 8.9 mg/dL (8.4-10.2); Potassium 3.8 mmol/L (3.5-5.1)
[2020-09-14 05:41] LABS: INR 2.7 (<1.2); Prothrombin Time 26.2 sec (9.0-12.0)
[2020-09-14] MEDS ORDERED: POTASSIUM CHLORIDE ER 20 MEQ TAB.ER PO SCH (07:00)
[2020-09-14] MEDS: DOBUTamine DRIP 500 MG in DEXTROSE/WATER 1 250ML.BAG IV SCH ×2 (07:14→19:57)
[2020-09-14] MEDS: LEVOTHYROXINE 88 MCG TAB PO SCH (07:36)
--- NOTE | 2020-09-14 08:10 | XR ---
EXAMINATION TYPE: XR chest 1V portable DATE OF EXAM: 09/14/2020 HISTORY: Shortness of breath. COMPARISON: 09/13/2020 TECHNIQUE: Single view of the chest is submitted. FINDINGS: Demonstrated are scattered senescent parenchymal change. Scattered infiltrates throughout the right lung persists. No significant change appreciated. The heart is stable. Hilar and mediastinal structures are within normal limits. Degenerative changes are seen of the dorsal spine. IMPRESSION: 1. Scattered infiltrates throughout the right lung persists. No significant change appreciated.
[2020-09-14] MEDS: IPRATROPIUM-ALBUTEROL 3 ML NEB INHALATION SCH ×4 (08:14→21:11)
[2020-09-14] MEDS: AMIODARONE 200 MG TAB PO SCH ×2 (09:03→20:43)
[2020-09-14] MEDS: ASPIRIN 81 MG PO SCH (09:03)
[2020-09-14] MEDS: FAMOTIDINE 20 MG TAB PO SCH (09:04)
[2020-09-14] MEDS: MIDODRINE 5 MG TAB PO SCH ×3 (09:04→18:13)
[2020-09-14] MEDS: METOPROLOL TARTRATE 50 MG TAB PO SCH ×2 (09:04→20:43)
[2020-09-14] MEDS: SODIUM BICARBONATE TAB 650 MG TAB PO SCH ×2 (09:04→20:43)
--- NOTE | 2020-09-14 09:34 | P.PN ---
Subjective Patient is seen in follow-up for acute kidney injury on chronic kidney disease. Currently maintained on Lasix drip. Dobutamine was stopped this morning. Denies chest pain or shortness of breath. Oral intake fair. Vital signs are stable. General: The patient appeared well nourished and normally developed. HEENT: Head exam is unremarkable. Neck is without jugular venous distension. LUNGS: Breath sounds decreased. HEART: Rate and Rhythm are regular. ABDOMEN: Soft, obese. EXTREMITITES: 1+ edema. Lower extremities wrapped. Objective - Vital Signs Vital signs: Vital Signs Temp 98.0 F 09/14/20 08:00 Pulse 105 H 09/14/20 09:00 Resp 27 H 09/14/20 09:00 BP 95/71 09/14/20 09:00 Pulse Ox 94 L 09/14/20 09:00 Intake & Output 09/13/20 09/14/20 09/14/20 18:59 06:59 18:59 Intake Total 464.167 720 278.013 Output Total 1760 1085 135 Balance -1295.833 -365 143.013 Weight 168.4 kg Intake: IV 130 120 20 0.9 Normal Saline @ 10mL/ 130 120 20 hr Intake, IV Titration 334.167 350 258.013 Amount DOBUTamine DRIP 500 mg In 250 250 258.013 Dextrose/Water 1 250ml. bag @ 2.5 MCG/KG/MIN 12. 653 mls/hr IV .[id number] [facility] Rx#:[id number] Furosemide 100 mg In 84.167 100 Sodium Chloride 0.9% 90 ml @ 10 MG/HR 10 mls/hr IV .Q10H [facility] Rx#: [id number] Oral 250 Output: Urine 1760 1085 135 Other: Voiding Method Indwelling Catheter Indwelling Catheter ABP, PAP, CO, CI - Last Documented Arterial Blood Pressure 93/54 - Labs CBC & Chem 7: 09/14/20 04:50 09/14/20 04:50 Labs: Abnormal Lab Results - Last 24 Hours (Table) 09/14/20 09/14/20 09/14/20 Range/Units 04:50 04:50 04:50 WBC 11.2 H (3.8-10.6) k/uL RDW 16.1 H (11.5-15.5) % Plt Count 96 L (150-450) k/uL PT 26.2 H (9.0-12.0) sec INR 2.7 H (<1.2) BUN 57 H (9-20) mg/dL Creatinine 1.93 H (0.66-1.25) mg/dL Glucose 103 H (74-99) mg/dL Microbiology - Last 24 Hours (Table) 09/08/20 15:24 Blood Culture - Preliminary Blood No Growth after 120 hours Assessment and Plan Plan: Assessment: 1. Acute kidney injury secondary to ATN secondary to cardiorenal syndrome. Now nonoliguric. Renal function better. Creatinine 1.93 today. 2. Chronic kidney disease stage IIIa. Baseline creatinine 1.2-1.3 secondary to nephrosclerosis. 3. Acute on chronic systolic CHF with ejection fraction of 20-25%. 4. Metabolic acidosis secondary to acute kidney injury. Maintained on oral bicarbonate. Better. 5. Volume overload. Improving with diuresis. 6. Hypokalemia from diuresis. Replaced. Plan: Dobutamine drip stopped this morning by cardiology. I will change Lasix to 60 mg IV twice daily. Maintain midodrine - hold for systolic blood pressure greater than 110. Continue to monitor renal function and urine output. No need for renal replacement therapy at this time.
--- NOTE | 2020-09-14 12:20 | P.PN ---
Subjective HISTORY OF PRESENTING ILLNESS This is a pleasant 64-year-old male past medical history significant for chronic persistent atrial fibrillation on warfarin, dilated cardiomyopathy, chronic systolic heart failure, hypertension, COPD, dyslipidemia and chronic kidney disease. He follows in the office with Dr. Goodwin. We have been asked to see in consultation for heart failure. He presented to the hospital with a 3 week history of worsening shortness of breath, lower extremity edema and weight gain. He states his activity level has been decreased due to his breathing and he has gained 40lbs in the previous 6 months. He saw his PCP yesterday and was sent in for diuresis. He is seen and examined sitting up in bed. He is tachyneic at rest but maintaining his oxygen saturations. He has been started on IV diuretics. 09/14/2020 Pt seen and examined sitting up in recliner chair. Breathing is slowly improving. No chest pain, dizziness or palpitations. Blood pressure 107/90 heart rate 89 afebrile and maintaining oxygen saturation on high flow nasal cannula. Trachea data reviewed, WBC 11.2, hemoglobin 13.2, platelets 96, INR 2.7, sodium 138, potassium 3.8, creatinine 1.93. 24-hr urine output 2845 ml. Chest xray reveals scattered infiltrates throughout the right lung persists. No significant changes. Telemetry reveals atrial fibrillation with heart rates in 90-110 range. Currently 82. PHYSICAL EXAMINATION CONSTITUTIONAL: Mild respiratory distress. Morbidly obese. HEENT: Head is normocephalic. Pupils are equal, round. Sclerae anicteric. Mucous membranes of the mouth are moist. No JVD. No carotid bruit. CHEST EXAMINATION: Expiratory wheezes, scattered rhonchi, no rales. No chest wall tenderness is noted on palpation or with deep breathing. HEART EXAMINATION: Irregular rate and rhythm. S1, S2 heard. No murmurs, gallops or rub. EXTREMITIES: 2+ peripheral pulses, 2+ bilateral lower extremity pitting edema with erythema, dressings in place bilateral lower extremities and no calf tenderness. ASSESSMENT Acute on chronic systolic heart failure Chronic persistent atrial fibrillation on long-term anticoagulation with v ariable ventricular rates Hypertension Hyperkalemia Thrombocytopenia Troponin leak not indicative of myocardial ischemia, likely secondary to a combination of acute heart failure and chronic kidney disease Cellulitus Chronic kidney disease COPD Morbid obesity, BMI 47 PLAN Discontinue dobutamine infusion. Lasix infusion being adjusted per nephrology. Continue amiodarone PO 400 mg BID. We will adjust and titrate appropriately. Follow renal function and electrolytes in the morning. He will require further investigation into his etiology of his cardiomyopathy with a catheterization at some point. We will continue to optimize his therapy and consider this in the next few days if he continues to improve. Nurse Practitioner note has been reviewed, I agree with a documented findings and plan of care. Patient was seen and examined. Objective - Vital Signs Vital signs: Vital Signs Temp 98.0 F 09/14/20 08:00 Pulse 105 H 09/14/20 09:00 Resp 27 H 09/14/20 09:00 BP 95/71 09/14/20 09:00 Pulse Ox 94 L 09/14/20 09:00 Intake & Output 09/13/20 09/14/20 09/14/20 18:59 06:59 18:59 Intake Total 464.167 720 278.013 Output Total 1760 1085 135 Balance -1295.833 -365 143.013 Weight 168.4 kg Intake: IV 130 120 20 0.9 Normal Saline @ 10mL/ 130 120 20 hr Intake, IV Titration 334.167 350 258.013 Amount DOBUTamine DRIP 500 mg In 250 250 258.013 Dextrose/Water 1 250ml. bag @ 2.5 MCG/KG/MIN 12. 653 mls/hr IV .[id number] [facility] Rx#:[id number] Furosemide 100 mg In 84.167 100 Sodium Chloride 0.9% 90 ml @ 10 MG/HR 10 mls/hr IV .Q10H [facility] Rx#: [id number] Oral 250 Output: Urine 1760 1085 135 Other: Voiding Method Indwelling Catheter Indwelling Catheter ABP, PAP, CO, CI - Last Documented Arterial Blood Pressure 93/54 - Labs CBC & Chem 7: 09/14/20 04:50 09/14/20 04:50 Labs: Abnormal Lab Results - Last 24 Hours (Table) 09/14/20 09/14/20 09/14/20 Range/Units 04:50 04:50 04:50 WBC 11.2 H (3.8-10.6) k/uL RDW 16.1 H (11.5-15.5) % Plt Count 96 L (150-450) k/uL PT 26.2 H (9.0-12.0) sec INR 2.7 H (<1.2) BUN 57 H (9-20) mg/dL Creatinine 1.93 H (0.66-1.25) mg/dL Glucose 103 H (74-99) mg/dL Microbiology - Last 24 Hours (Table) 09/08/20 15:24 Blood Culture - Preliminary Blood No Growth after 120 hours
[2020-09-14] MEDS: allopurinoL 100 MG TAB PO SCH (12:39)
--- NOTE | 2020-09-14 12:43 | P.PN ---
Subjective Progress Note Date: 09/14/20 Principal diagnosis: Acute hypoxic respiratory failure secondary to acute exacerbation of systolic congestive heart failure. This is a 64-year-old male patient, morbidly obese with biventricular failure, chronic systolic heart failure, chronic kidney disease, chronic itchy fibri llation and various other medical problems and comorbidities as will be discussed with him. The patient comes in with significant weight gain, volume overload, increased lower extremity edema, 1 in lower extremities more so on the left along with erythema and several episodes of the left lower extremity. The patient also has vesicles that are filled with fluid secondary to her increased subcutaneous emphysema mainly over the right lower flank area, and pressure points. For that reason, the patient was hospitalized. The patient was fine to be hypoxic. He is not known to have any home oxygen. He was placed on oxygen currently is up to 15 L of oxygen by nasal cannula. No history of COPD most of smoking. His chest x-ray was consistent with cardiac regular and pulmonary edema. EKG was consistent with chronic atrial fibrillation with a LBBB pattern. The patient's white cell count was as high as 21.6 . The patient had a proBNP level of 17,004 100. Troponins were 0.053 respectively. Creatinine initially was at 1.7. The patient was initially started on a combination of diuretics and antibiotics. The patient was started on IV cefepime. The culture from the wound is positive for strep. White cell count is improving. Nevertheless, the patient developed some worsening renal function. The patient developed an acute on top of chronic kidney disease. The patient was accordingly started on dobutamine today. The echo showing an ejection fraction of 20-25%. RV severely dilated. LV is also moderately dilated. PA pressure was 42 mmHg. On 09/10/2020, I'm seeing the patient for a follow-up. Overnight, the patient got transferred to the intensive care unit as the patient was having episodes of hypotension and his systolic blood pressure was dropping in the mid 70s. Note that the patient was being treated with a combination of dobutamine and Lasix. I had to bring him to the intensive care unit and the patient was started on levo fed for hemodynamic support. Is currently on levo fed running at 0.04 mcg/kg per minute. Chest x-ray still showing cardiomegaly. Clinically he does have some edema lower extremities bilaterally and also edema on his flanks and hips area. He is also being treated for this unless of the left lower extremity. This morning, he remains on dobutamine at 2.5 Jc respiratory per minute. Remains on norepinephrine infusion at low dose. He is still on Lasix drip running at 10 mg an hour. An arterial line will be established for adequate blood pressure monitoring. He also benefit from the PICC line. He remains on IV cefepime. White cell count is down to 11. His INR currently is at 2.0 and the patient has an underlying atrial fibrillation rhythm with a LBBB pattern. Creatinine is on the rise and is currently up to 3.84 with a BUN of 72. On examination, the cellulitis still present in the left lower extremity although the area and his left lower extremity is less erythematous. In addition, the patient is currently on BiPAP for respiratory support. BiPAP is running at a pressure of 10/5 cm of water with an FiO2 of 40%. He is quite interested the respirator and is able to generate adequate tidal volumes and no signs of any significant respiratory distress. No signs of any CO2 narcosis. 09/11/2020, the patient is improved clinically. There is improvement in his mentation. The patient is much more awake and interactive and is currently off the BiPAP. He is back on oxygen at 5 L per minute nasal cannula. He did utilize the BiPAP throughout the day yesterday as the patient was lethargic and insignificant degree of respiratory distress. At the same time, lines were established, the patient was started on a high dose of dobutamine at 5 mg/kg/m and the patient was also started on Lasix drip at 10 mg an hour. Norepinephrine is also being utilized for hemodynamic support which is currently running at 0.06 mcg/kg per minute. This improved his overall hemodynamics. His urine output gradually picked up and currently is producing urine output in the order of 100 mL an hour. His net fluid balance has been negative. Also, he remains on antibiotics regarding the left lower extremity cellulitis. The area looks improved and it's much less erythematous and red on today's evaluation. The swelling is also improving and his lower extremities bilaterally. His white cell count is currently down to 9 and the patient's renal function continues to improve. His creatinine today is down to 3.1 with a BUN of 17. Rest of the electrodes shows some mild metabolic acidosis with a serum bicarb of 20. The patient's INR today is at 3.2. No bleeding complications. He is quite stable. Tolerating diet. Moving all 4 extremities without any limitation. No altered mentation. His cardiac rhythm remains atrial fibrillation. On 09/12/2020, the patient continues to be rather stable and probably improving. This morning, he is up on a recliner. He is watching television. He is on 8 L of oxygen by nasal cannula. He was on BiPAP overnight at a pressure of 10/5 cm of water. This morning, he was transitioned back to high flow oxygen at 8 L. He remains on dobutamine 5 mcg/kg per minute. He remains on norepinephrine infusion and this was gradually weaned off throughout the day yesterday and was turned off this morning. He is still on Lasix drip at 10 mg an hour. He is in a negative fluid balance of 1 L over the past 24 hours and the patient has shown improvement in his creatinine which is down to 2.5. Urine output is in order of 150 mL an hour. No fever. No chills. Several episodes of the lower extremities have been improving as stated earlier and the patient remains on broad-spectrum antibiotics. No Coumadin was given yesterday and INR today is at 3.1. He remains on cefepime for now. Previously obtain cultures have shown that traumatic strep group G and gram-negative bacillus in the lower extremity wound cultures. His white cell count is down to 8.9. He is tolerating his diet. No other significant events. His cardiac rhythm currently is a chair fibrillation. His weight is also down. Patient was reevaluated today on 09/13/2020, remains in the ICU, remains on Lasix drip at 10 mg per hour is also on the Peter X at 5 mcg/kg/m. IV fluid is at KVO, patient is on 8 L high flow nasal cannula with O2 sat showed 91%, is also intermittently on BiPAP 10/5 at 50% FiO2 especially at bedtime. Patient is being treated for acute systolic congestive heart failure with ejection fraction of 20-25%, and he has clearly anasarca. Chest x-ray continues to show heart nahid lure and cardiomegaly. Patient is on cefepime for lower extremity cellulitis. Since admission, the patient is steadily improving clinically, but clearly not quite ready to be discharged home yet. CBC is relatively normal INR is 2.9. Electrolytes are normal BUN is 60 improving creatinine is 2.0 improving. Chest x-ray continues to show congestive heart failure. Reevaluated today on 09/14/2020, patient remains in the ICU, he is on 8 L high flow nasal cannula with O2 saturation 95%. He was on Lasix at 10 mg per hour and dobutamine at 2.5 mcg/kg/m, however both have been changed that dobutamine is presently on hold, and Lasix was changed to IV Lasix 60 mg IV push every 12 hours. Patient is in A. fib with a rate of 10 7 at night he is on BiPAP 10/5/50%. Patient had a -1.6 L of fluid over the last 24 hours. Continues to be in negative balance over the last few days he is over 9 L negative fluid balance. Renal functioning was noted, creatinine continues to improve down to 1.93 BUN is 57 and I believe this is mostly because of Dobutrex on board. INR remains at 2.7. Patient continues to have central lines in place which I will recommend removing and placement of a midline. Will eventually need possibly a PICC line. CBC is relatively normal. Chest x-ray showed bilateral interstitial infiltrates/edema Objective - Vital Signs Vital signs: Vital Signs Temp 98.0 F 09/14/20 08:00 Pulse 89 09/14/20 11:46 Resp 18 09/14/20 11:00 BP 107/90 09/14/20 11:00 Pulse Ox 90 L 09/14/20 11:00 Intake & Output 09/13/20 09/14/20 09/14/20 18:59 06:59 18:59 Intake Total 464.167 720 310.013 Output Total 1760 1085 218 Balance -1295.833 -365 92.013 Weight 168.4 kg Intake: IV 130 120 52 0.9 Normal Saline @ 10mL/ 130 120 40 hr 0.9 Normal Saline 12 Pressure Bag Intake, IV Titration 334.167 350 258.013 Amount DOBUTamine DRIP 500 mg In 250 250 258.013 Dextrose/Water 1 250ml. bag @ 2.5 MCG/KG/MIN 12. 653 mls/hr IV .[id number] [facility] Rx#:[id number] Furosemide 100 mg In 84.167 100 Sodium Chloride 0.9% 90 ml @ 10 MG/HR 10 mls/hr IV .Q10H [facility] Rx#: [id number] Oral 250 Output: Urine 1760 1085 218 Other: Voiding Method Indwelling Catheter Indwelling Catheter Indwelling Catheter ABP, PAP, CO, CI - Last Documented Arterial Blood Pressure 128/59 - Exam Physical Exam: Revealed 64-year-old white male obese On 8 L high flow cannula. Does not seem to be in distress Head: Atraumatic, normocephalic. Dry mucous membranes. HEENT: Short obese neck. [Neck is supple.] [No neck masses.] [No thyromegaly.] [No JVD.EOMI, nonicteric. PERRLA, Chest: Symmetrical chest expansion, fine crackles at the bases persists.. Cardiac Exam: Distant S1 and S2,, no S3 gallop, no murmur.] Abdomen: [Obese, Soft, nontender, no megaly, no rebound, no guarding, normal bowel sounds.] Extremities: [No clubbing, 1+ bipedal edema, no cyanosis.] Good Pulses bilaterally. Neurological Exam: [No focal neurologic deficit.] Alert oriented 3. Psychiatric: Normal mood affect and normal mental status examination. Skin: Left lower extremity cellulitis and erythema persists. - Labs CBC & Chem 7: 09/14/20 04:50 09/14/20 04:50 Labs: Abnormal Lab Results - Last 24 Hours (Table) 09/14/20 09/14/20 09/14/20 Range/Units 04:50 04:50 04:50 WBC 11.2 H (3.8-10.6) k/uL RDW 16.1 H (11.5-15.5) % Plt Count 96 L (150-450) k/uL PT 26.2 H (9.0-12.0) sec INR 2.7 H (<1.2) BUN 57 H (9-20) mg/dL Creatinine 1.93 H (0.66-1.25) mg/dL Glucose 103 H (74-99) mg/dL Microbiology - Last 24 Hours (Table) 09/08/20 15:24 Blood Culture - Preliminary Blood No Growth after 120 hours Assessment and Plan Assessment: Impression: Acute hypoxic respiratory failure secondary to acute exacerbation of systolic congestive heart failure. Off Dobutrex and Lasix was changed from IV infusion to IV push 3 mg every 12 hours. Bilateral lower extremity cellulitis, left greater than right. Remains on broad-spectrum antibiotics. Patient is on cefepime. Acute on chronic kidney injury, improving with Dobutrex. However Dobutrex is presently on hold. Leukocytosis secondary to cellulitis. Chronic atrial fibrillation with left bundle branch block pattern. Morbid obesity with BMI of 56.5. Benign essential hypertension. Coronary artery disease/ischemic cardiomyopathy Hypothyroidism. Dyslipidemia. Suspect obstructive sleep apnea syndrome. Patient utilizes BiPAP at night. Recommendation: Continue present supportive care measures. Continue Lasix IV push. Hold Dobutrex for now. Continue to monitor daily electrolytes and renal profile. BiPAP at night. Continue anticoagulation therapy patient is on Coumadin. Continue amiodarone. And metoprolol. We'll continue to follow. Prognosis remains relatively guarded. We'll continue to monitor in the ICU for now. Time with Patient: Less than 30
[2020-09-14] MEDS ORDERED: WARFARIN 5 MG TAB PO ONE (18:00)
[2020-09-14] MEDS: TAMSULOSIN 0.4 MG CAP.ER.24H PO SCH (18:13)
--- NOTE | 2020-09-14 19:13 | P.PN ---
Subjective Patient is a 64-year-old male with a known history of chronic atrial fibrillation on anticoagulation with warfarin, chronic CHF with systolic dysfun ction, hypertension, hyperlipidemia, history of my, hypothyroidism, stage III CKD, bilateral lower extremity venous insufficiency/venous stasis and previous history of cellulitis and other medical problems presents to ER with complaints of shortness of breath worsening for the past 2-4 weeks. Patient was also having increased leg swelling. No complaints of chest pain. Patient diagnosed with severe systolic CHF with ejection fraction of 20-25% with resultant acute hypoxic respiratory failure, patient is placed on dobutamine and Lasix drips. Also he needed some mild dose norepinephrine drip for blood pressure support. He is on cefepime for left leg cellulitis. Creatinine is improving 3.8 down to 3.1 today, his acute kidney injury secondary to cardiorenal syndrome He is on Coumadin for A. fib. INR is 3.2 today. Wound culture is growing Streptococcus and gram-negative bacilli today patient feels better with breathing more easily, he is needing 6 L of oxygen via nasal cannula Patient is hemodynamically stable. 09/12/2020 Patient's remains in the ICU, he states that his dyspnea is a slightly better, patient noticed to be tachypneic and he needed 8 liter/min of oxygen today compared to 6 L/m yesterday. He has left leg cellulitis and bilateral leg edema edges improving slightly. B oth legs are is wrapped He had to use BiPAP last night for a couple hours. INR is 3.2 and 3.1, creatinine coming down to 2.5. Wound culture is growing Streptococcus and gram-negative bacilli He remains on Lasix drip and dobutamine drip while little bit was discontinued today. He remains on cefepime, warfarin 5 mg given tonight per bucket wash operator. He is on Lasix and dobutamine drip and aspirin 81 mg. 09/13/2020 Patient Wanted to hurt in the ICU currently. His diuresing well while he is on Lasix and dobutamine drip. No more need for Levophed drip. However he still short of breath at rest, improved since admission. He is on 8 L/m of oxygen and is on cannula this morning. He has bilateral leg swelling which are improving as well. His INR is 2.9 after he got 5 units of Coumadin last night, creatinine improving down to 2.0 today. He also continued on antibiotics with cefepime, wound culture showing beta- hemolytic streptococcus and gram-negative bacilli, final results still pending 09/14/2020 Patient is remains in the ICU, breathing leg similar to yesterday. Still on 8 L oxygen via nasal cannula. However his creatinine level at 2.0 yesterday and 1.9 today. His dobutamine drip was stopped and laxity dropped switched to IV of 60 mg twice daily. Other than that there is no significant change from yesterday. Both legs are is wrapped He remains on cefepime, warfarin dosing with INR today is 2.7. Also I baby dose of aspirin at 81 mg/h. Objective - Vital Signs Vital signs: Vital Signs Temp 99 F 09/14/20 16:00 Pulse 95 09/14/20 19:00 Resp 21 09/14/20 19:00 BP 94/61 09/14/20 18:00 Pulse Ox 87 L 09/14/20 19:00 Intake & Output 09/14/20 09/14/20 09/15/20 06:59 18:59 06:59 Intake Total 720 1071.013 13 Output Total 1085 441 15 Balance -365 630.013 -2 Weight 162.3 kg Intake: IV 120 143 13 0.9 Normal Saline @ 10mL/ 120 110 10 hr 0.9 Normal Saline 33 3 Pressure Bag Intake, IV Titration 350 258.013 Amount DOBUTamine DRIP 500 mg In 250 258.013 Dextrose/Water 1 250ml. bag @ 2.5 MCG/KG/MIN 12. 653 mls/hr IV .[id number] [facility] Rx#:[id number] Furosemide 100 mg In 100 Sodium Chloride 0.9% 90 ml @ 10 MG/HR 10 mls/hr IV .Q10H [facility] Rx#: [id number] Oral 250 670 Output: Urine 1085 441 15 Other: Voiding Method Indwelling Catheter Indwelling Catheter ABP, PAP, CO, CI - Last Documented Arterial Blood Pressure 86/55 - Exam GENERAL: The patient is alert and oriented x3, not in any acute distress. Well developed, well nourished. HEENT: Pupils are round and equally reacting to light. EOMI. No scleral icterus. No conjunctival pallor. Normocephalic, atraumatic. No pharyngeal erythema. No thyromegaly. CARDIOVASCULAR: S1 and S2 present. No murmurs, rubs, or gallops. -PULMONARY: Chest is clear to auscultation, no wheezing or. Bilateral basal crepitation ABDOMEN: Soft, nontender, nondistended, normoactive bowel sounds. No palpable organomegaly. MUSCULOSKELETAL: No joint swelling or deformity. -EXTREMITIES: No cyanosis, clubbing, . Bilateral patellar like edema NEUROLOGICAL: Gross neurological examination did not reveal any focal deficits. SKIN: No rashes. no petechiae. - Labs CBC & Chem 7: 09/14/20 04:50 09/14/20 17:15 Labs: Abnormal Lab Results - Last 24 Hours (Table) 09/14/20 09/14/20 09/14/20 Range/Units 04:50 04:50 04:50 WBC 11.2 H (3.8-10.6) k/uL RDW 16.1 H (11.5-15.5) % Plt Count 96 L (150-450) k/uL PT 26.2 H (9.0-12.0) sec INR 2.7 H (<1.2) BUN 57 H (9-20) mg/dL Creatinine 1.93 H (0.66-1.25) mg/dL Glucose 103 H (74-99) mg/dL Microbiology - Last 24 Hours (Table) 09/08/20 15:24 Blood Culture - Final Blood No Growth after 144 hours Assessment and Plan Assessment: Acute hypoxic respiratory failure due to acute CHF. Acute on chronic CHF with systolic dysfunction ejection fraction 2025% as per TTE Bilateral lower extremity swelling with left leg cellulitis. Chronic atrial fibrillation on anticoagulation with warfarin Subtherapeutic Level. Coagulopathy secondary to Coumadin Mildly elevated troponin level likely due to demand ischemia with CHF and also complaining CK D Worsening Acute kidney injury likely due to cardiorenal. Chronic kidney disease stage III Hypertension Hyperlipidemia History of [place] Morbid obesity BMI 47.3 Plan: This is a pleasant 64 years old male who presents with severe CHF, left leg cellulitis and LELAND. Continue with Lasix IV push, monitor urine output. Monitor electrolytes. Cardiology and pulmonary/critical care team consult as well as nephrology team on the case Stop dobutamine drip Continue with antibiotic, currently with cefepime Monitor INR while he is on Coumadin. Labs and medication were reviewed.. Continue same treatment. Continue with symptomatic treatment. Resume home medication. Monitor lytes and vitals. DVT and GI prophylaxis. Further recommendations as per clinical course of the griselda ent DVT prophylaxis: on Coumadin GI Prophylaxis: Pepcid Prognosis is guarded
[2020-09-14] MEDS: FUROSEMIDE 10 MG/ML 10 ML VIAL IV SCH (20:43)
[2020-09-15 04:11] LABS: Calcium 9.2 mg/dL (8.4-10.2); Magnesium 1.9 mg/dL (1.6-2.3); Potassium 3.7 mmol/L (3.5-5.1)
--- NOTE | 2020-09-15 04:22 | PN ---
PROGRESS NOTE DATE OF SERVICE: 09/14/2020 REASON FOR FOLLOWUP: Bilateral lower extremity wound and cellulitis. INTERVAL HISTORY: The patient is afebrile. The patient is breathing comfortably. The patient is requiring BiPAP . Denies any chest pain. No worsening cough. No abdominal pain. No diarrhea. PHYSICAL EXAMINATION: Blood pressure 103/55. Pulse of 79, temperature is 98, he is 93% on BIPAP. General description is a middle-aged male lying in bed in no distress. Respiratory system: Unlabored breathing. Decreased intensity of breath sounds, no wheeze. Heart S1, S2. Regular rate and rhythm. Abdomen soft, no tenderness. LABS: Hemoglobin 13.1, white count 9.2, BUN of 57, creatinine 0.93. DIAGNOSTIC IMPRESSION AND PLAN: Patient with bilateral lower extremity venostasis ulcer and cellulitis in this patient who does have evidence of patient is currently covered with cefepime, gram- negative has not been identified. Local care with dry Aquacel dressing and Hermes wrap and monitor clinical course closely. MMODL / IJN: [id number] /
[2020-09-15 04:25] LABS: INR 2.4 (<1.2); Prothrombin Time 23.7 sec (9.0-12.0)
[2020-09-15 04:31] LABS: Anisocytosis Slight; Basophils # (A) 0.1 k/uL (0-0.2); Basophils % (A) 1 %; Eosinophils # (A) 0.7 k/uL (0-0.7); Eosinophils % (A) 5 %; HCT 42.2 % (39.0-53.0); HGB 13.8 gm/dL (13.0-17.5); Lymphocytes # (A) 0.6 k/uL (1.0-4.8); Lymphocytes % (A) 5 %; MCH 30.4 pg (25.0-35.0); MCHC 32.7 g/dL (31.0-37.0); Mean Platelet Volume 13.1; Monocytes # (A) 0.7 k/uL (0-1.0); Monocytes % (A) 6 %; Neutrophils # (A) 10.3 k/uL (1.3-7.7); Neutrophils % (A) 83 %; Platelet Count 101 k/uL (150-450); RBC 4.54 m/uL (4.30-5.90); RDW 16.2 % (11.5-15.5); WBC 12.5 k/uL (3.8-10.6)
[2020-09-15] MEDS ORDERED: POTASSIUM CHLORIDE ER 20 MEQ TAB.ER PO SCH (05:00)
[2020-09-15] MEDS: DOBUTamine DRIP 500 MG in DEXTROSE/WATER 1 250ML.BAG IV SCH ×2 (05:37→16:38)
[2020-09-15] MEDS: CEFEPIME 1 GM in SODIUM CHLORIDE 0.9% 50 ML IVPB SCH (05:45)
[2020-09-15] MEDS: NOREPINEPHRINE 4 MG in SODIUM CHLORIDE 0.9% 250 ML IV SCH ×3 (06:49→23:59)
[2020-09-15] MEDS: MIDODRINE 5 MG TAB PO SCH ×3 (06:50→16:38)
[2020-09-15] MEDS: LEVOTHYROXINE 100 MCG TAB PO SCH (06:50)
[2020-09-15] MEDS: IPRATROPIUM-ALBUTEROL 3 ML NEB INHALATION SCH ×4 (07:46→20:49)
--- NOTE | 2020-09-15 07:50 | P.PN ---
Subjective Patient is a 64-year-old male with a known history of chronic atrial fibrillation on anticoagulation with warfarin, chronic CHF with systolic dysfun ction, hypertension, hyperlipidemia, history of my, hypothyroidism, stage III CKD, bilateral lower extremity venous insufficiency/venous stasis and previous history of cellulitis and other medical problems presents to ER with complaints of shortness of breath worsening for the past 2-4 weeks. Patient was also having increased leg swelling. No complaints of chest pain. Patient diagnosed with severe systolic CHF with ejection fraction of 20-25% with resultant acute hypoxic respiratory failure, patient is placed on dobutamine and Lasix drips. Also he needed some mild dose norepinephrine drip for blood pressure support. He is on cefepime for left leg cellulitis. Creatinine is improving 3.8 down to 3.1 today, his acute kidney injury secondary to cardiorenal syndrome He is on Coumadin for A. fib. INR is 3.2 today. Wound culture is growing Streptococcus and gram-negative bacilli today patient feels better with breathing more easily, he is needing 6 L of oxygen via nasal cannula Patient is hemodynamically stable. 09/12/2020 Patient's remains in the ICU, he states that his dyspnea is a slightly better, patient noticed to be tachypneic and he needed 8 liter/min of oxygen today compared to 6 L/m yesterday. He has left leg cellulitis and bilateral leg edema edges improving slightly. B oth legs are is wrapped He had to use BiPAP last night for a couple hours. INR is 3.2 and 3.1, creatinine coming down to 2.5. Wound culture is growing Streptococcus and gram-negative bacilli He remains on Lasix drip and dobutamine drip while little bit was discontinued today. 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 He is on Lasix and dobutamine drip and aspirin 81 mg. 09/13/2020 Patient Wanted to hurt in the ICU currently. His diuresing well while he is on Lasix and dobutamine drip. No more need for Levophed drip. However he still short of breath at rest, improved since admission. He is on 8 L/m of oxygen and is on cannula this morning. He has bilateral leg swelling which are improving as well. His INR is 2.9 after he got 5 units of Coumadin last night, creatinine improving down to 2.0 today. He also continued on antibiotics with cefepime, wound culture showing beta- hemolytic streptococcus and gram-negative bacilli, final results still pending 09/14/2020 Patient is remains in the ICU, breathing leg similar to yesterday. Still on 8 L oxygen via nasal cannula. However his creatinine level at 2.0 yesterday and 1.9 today. His dobutamine drip was stopped and laxity dropped switched to IV of 60 mg twice daily. Other than that there is no significant change from yesterday. Both legs are is wrapped He remains on cefepime, warfarin dosing with INR today is 2.7. Also I baby dose of aspirin at 81 mg/h. 09/15/2020 Patient most tachypneic today. Still on 8 L oxygen per minute via nasal cannula. Use BiPAP at night LegS are is wrapped. INR today is 2.4, rest of labs are pending. Patient is still on cefepime for leg cellulitis. Patient still on warfarin, IV Lasix 60 mg twice daily. Patient is having good urine output. We will restrict her fluids. Objective - Vital Signs Vital signs: Vital Signs Temp 98.0 F 09/15/20 04:00 Pulse 103 H 09/15/20 07:00 Resp 21 09/15/20 07:00 BP 107/60 09/15/20 06:00 Pulse Ox 91 L 09/15/20 07:00 Intake & Output 09/14/20 09/15/20 09/15/20 18:59 06:59 18:59 Intake Total 1071.013 378.335 313 Output Total 441 550 40 Balance 630.013 -171.665 273 Weight 162.3 kg Intake: IV 143 143 13 0.9 Normal Saline @ 10mL/ 110 110 10 hr 0.9 Normal Saline 33 33 3 Pressure Bag Intake, IV Titration 258.013 235.335 Amount DOBUTamine DRIP 500 mg In 258.013 Dextrose/Water 1 250ml. bag @ 2.5 MCG/KG/MIN 12. 653 mls/hr IV .[id number] [facility] Rx#:[id number] DOBUTamine DRIP 500 mg In 235.335 Dextrose/Water 1 250ml. bag @ 5 MCG/KG/MIN 24.345 mls/hr IV .[id number] [facility] Rx#:[id number] Oral 670 300 Output: Urine 441 550 40 Other: Voiding Method Indwelling Catheter Indwelling Catheter ABP, PAP, CO, CI - Last Documented Arterial Blood Pressure 137/67 - Exam GENERAL: The patient is alert and oriented x3, not in any acute distress. Well developed, well nourished. HEENT: Pupils are round and equally reacting to light. EOMI. No scleral icterus. No conjunctival pallor. Normocephalic, atraumatic. No pharyngeal erythema. No thyromegaly. CARDIOVASCULAR: S1 and S2 present. No murmurs, rubs, or gallops. -PULMONARY: Chest is clear to auscultation, no wheezing or. Bilateral basal crepitation ABDOMEN: Soft, nontender, nondistended, normoactive bowel sounds. No palpable organomegaly. MUSCULOSKELETAL: No joint swelling or deformity. -EXTREMITIES: No cyanosis, clubbing, . Bilateral patellar like edema NEUROLOGICAL: Gross neurological examination did not reveal any focal deficits. SKIN: No rashes. no petechiae. - Labs CBC & Chem 7: 09/15/20 03:10 09/15/20 03:10 Labs: Abnormal Lab Results - Last 24 Hours (Table) 09/15/20 09/15/20 09/15/20 Range/Units 03:10 03:10 03:58 WBC 12.5 H (3.8-10.6) k/uL RDW 16.2 H (11.5-15.5) % Plt Count 101 L (150-450) k/uL Neutrophils # 10.3 H (1.3-7.7) k/uL Lymphocytes # 0.6 L (1.0-4.8) k/uL PT 23.7 H (9.0-12.0) sec INR 2.4 H (<1.2) BUN 64 H (9-20) mg/dL Creatinine 1.90 H (0.66-1.25) mg/dL Glucose 101 H (74-99) mg/dL Microbiology - Last 24 Hours (Table) 09/08/20 15:24 Blood Culture - Final Blood No Growth after 144 hours Assessment and Plan Assessment: Acute hypoxic respiratory failure due to acute CHF. Acute on chronic CHF with systolic dysfunction ejection fraction 2025% as per TTE Bilateral lower extremity swelling with left leg cellulitis. Chronic atrial fibrillation on anticoagulation with warfarin Subtherapeutic Level. Coagulopathy secondary to Coumadin Mildly elevated troponin level likely due to demand ischemia with CHF and also complaining CK D Worsening Acute kidney injury likely due to cardiorenal. Chronic kidney disease stage III Hypertension Hyperlipidemia History of [place] Morbid obesity BMI 47.3 Plan: This is a pleasant 64 years old male who presents with severe CHF, left leg cellulitis and LELAND. Continue with Lasix IV push, monitor urine output. Monitor electrolytes. Cardiology and pulmonary/critical care team consult as well as nephrology team on the case Continue with Lasix and fluid restriction and monitor creatinine and urine output Continue with antibiotic, currently with cefepime Monitor INR while he is on Coumadin. Labs and medication were reviewed.. Continue same treatment. Continue with symptomatic treatment. Resume home medication. Monitor lytes and vitals. DVT and GI prophylaxis. Further recommendations as per clinical course of the patient DVT prophylaxis: on Coumadin GI Prophylaxis: Pepcid Prognosis is guarded
--- NOTE | 2020-09-15 08:39 | P.PN ---
Subjective Patient is seen in follow-up for acute kidney injury on chronic kidney disease. Maintained on IV Lasix. Dobutamine was resumed due to low urine output. Urine output now about 40 mL an hour. Denies chest pain or shortness of breath. Oral intake fair. Vital signs are stable. General: The patient appeared well nourished and normally developed. HEENT: Head exam is unremarkable. Neck is without jugular venous distension. LUNGS: Breath sounds decreased. HEART: Rate and Rhythm are regular. ABDOMEN: Soft, obese. EXTREMITITES: 1+ edema. Lower extremities wrapped. Objective - Vital Signs Vital signs: Vital Signs Temp 98.0 F 09/15/20 04:00 Pulse 104 H 09/15/20 07:57 Resp 21 09/15/20 07:00 BP 107/60 09/15/20 06:00 Pulse Ox 94 L 09/15/20 07:46 Intake & Output 09/14/20 09/15/20 09/15/20 18:59 06:59 18:59 Intake Total 1071.013 378.335 313 Output Total 441 550 40 Balance 630.013 -171.665 273 Weight 162.3 kg Intake: IV 143 143 13 0.9 Normal Saline @ 10mL/ 110 110 10 hr 0.9 Normal Saline 33 33 3 Pressure Bag Intake, IV Titration 258.013 235.335 Amount DOBUTamine DRIP 500 mg In 258.013 Dextrose/Water 1 250ml. bag @ 2.5 MCG/KG/MIN 12. 653 mls/hr IV .[id number] [facility] Rx#:[id number] DOBUTamine DRIP 500 mg In 235.335 Dextrose/Water 1 250ml. bag @ 5 MCG/KG/MIN 24.345 mls/hr IV .[id number] [facility] Rx#:[id number] Oral 670 300 Output: Urine 441 550 40 Other: Voiding Method Indwelling Catheter Indwelling Catheter ABP, PAP, CO, CI - Last Documented Arterial Blood Pressure 137/67 - Labs CBC & Chem 7: 09/15/20 03:10 09/15/20 03:10 Labs: Abnormal Lab Results - Last 24 Hours (Table) 09/15/20 09/15/20 09/15/20 Range/Units 03:10 03:10 03:58 WBC 12.5 H (3.8-10.6) k/uL RDW 16.2 H (11.5-15.5) % Plt Count 101 L (150-450) k/uL Neutrophils # 10.3 H (1.3-7.7) k/uL Lymphocytes # 0.6 L (1.0-4.8) k/uL PT 23.7 H (9.0-12.0) sec INR 2.4 H (<1.2) BUN 64 H (9-20) mg/dL Creatinine 1.90 H (0.66-1.25) mg/dL Glucose 101 H (74-99) mg/dL Microbiology - Last 24 Hours (Table) 09/08/20 15:24 Blood Culture - Final Blood No Growth after 144 hours Assessment and Plan Plan: Assessment: 1. Acute kidney injury secondary to ATN secondary to cardiorenal syndrome. Now nonoliguric. Renal function stable. Creatinine 1.9 today. 2. Chronic kidney disease stage IIIa. Baseline creatinine 1.2-1.3 secondary to nephrosclerosis. 3. Acute on chronic systolic CHF with ejection fraction of 20-25%. 4. Metabolic acidosis secondary to acute kidney injury. Maintained on oral bicarbonate. Better. 5. Volume overload. Improving with diuresis. 6. Hypokalemia from diuresis. Replaced. Plan: Maintain dobutamine and IV Lasix. Maintain midodrine - hold for systolic blood pressure greater than 110. Continue to monitor renal function and urine output. No need for renal replacement therapy at this time.
[2020-09-15] MEDS ORDERED: PHYTONADIONE 5 MG in SODIUM CHLORIDE 0.9% 50 ML IVPB STA (09:00)
[2020-09-15] MEDS: METOPROLOL TARTRATE 50 MG TAB PO SCH ×2 (09:12→21:34)
[2020-09-15] MEDS: FUROSEMIDE 10 MG/ML 10 ML VIAL IV SCH ×2 (09:12→21:33)
[2020-09-15] MEDS: ASPIRIN 81 MG PO SCH (09:12)
[2020-09-15] MEDS: FAMOTIDINE 20 MG TAB PO SCH (09:12)
[2020-09-15] MEDS: AMIODARONE 200 MG TAB PO SCH ×2 (09:12→21:34)
[2020-09-15] MEDS: SODIUM BICARBONATE TAB 650 MG TAB PO SCH ×2 (09:12→21:34)
[2020-09-15] MEDS: ENOXAPARIN 80 MG/0.8 ML SYRINGE SQ SCH ×2 (09:25→21:34)
--- NOTE | 2020-09-15 10:39 | P.PN ---
Subjective HISTORY OF PRESENTING ILLNESS This is a pleasant 64-year-old male past medical history significant for chronic persistent atrial fibrillation on warfarin, dilated cardiomyopathy, chronic systolic heart failure, hypertension, COPD, dyslipidemia and chronic kidney disease. He follows in the office with Dr. Goodwin. We have been asked to see in consultation for heart failure. He presented to the hospital with a 3 week history of worsening shortness of breath, lower extremity edema and weight gain. He states his activity level has been decreased due to his breathing and he has gained 40lbs in the previous 6 months. He saw his PCP yesterday and was sent in for diuresis. He is seen and examined sitting up in bed. He is tachyneic at rest but maintaining his oxygen saturations. He has been started on IV diuretics. 09/15/2020 Pt seen and examined sitting up in recliner chair. His breathing is stable, but still poor. Urine output decreased yesterday evening prompting his dobutamine to be turned back on. Currently at 5 mcg. 24 hr urine output is 991 ml. Blood pressure 101/59 heart rate 108. Oxygen saturation on high flow nasal cannula adequte, however he desaturates with weaning. Laboratory data reviewed, WBC 12.5, hemoglobin 13.8, platelets 101, INR 2.4, sodium 137, potassium 3.7, magnesium 1.9 and creatinine 1.9. Vitamin K given per pulmonary for PICC line placement. PHYSICAL EXAMINATION CONSTITUTIONAL: Mild respiratory distress. Morbidly obese. HEENT: Head is normocephalic. Pupils are equal, round. Sclerae anicteric. Mucous membranes of the mouth are moist. No JVD. No carotid bruit. CHEST EXAMINATION: Expiratory wheezes, scattered rhonchi, no rales. No chest wall tenderness is noted on palpation or with deep breathing. HEART EXAMINATION: Irregular rate and rhythm. S1, S2 heard. No murmurs, gallops or rub. EXTREMITIES: 2+ peripheral pulses, 2+ bilateral lower extremity pitting edema with erythema, dressings in place bilateral lower extremities and no calf tenderness. ASSESSMENT Acute on chronic systolic heart failure Chronic persistent atrial fibrillation on long-term anticoagulation with variable ventricular rates Hypertension Hyperkalemia Thrombocytopenia Troponin leak not indicative of myocardial ischemia, likely secondary to a combination of acute heart failure and chronic kidney disease Cellulitus Chronic kidney disease COPD Morbid obesity, BMI 47 PLAN Decrease amiodarone to 200 mg BID. Lasix being managed per nephrology. Follow renal function and electrolytes in the morning. He will require further investigation into his etiology of his cardiomyopathy with a catheterization at some point. We will continue to optimize his therapy and consider this in the next few days if he continues to improve. Nurse Practitioner note has been reviewed, I agree with a documented findings and plan of care. Patient was seen and examined. Objective - Vital Signs Vital signs: Vital Signs Temp 98.0 F 09/15/20 08:00 Pulse 108 H 09/15/20 09:00 Resp 21 09/15/20 09:00 BP 88/74 09/15/20 09:00 Pulse Ox 84 L 09/15/20 09:00 Intake & Output 09/14/20 09/15/20 09/15/20 18:59 06:59 18:59 Intake Total 1071.013 378.335 339 Output Total 441 550 140 Balance 630.013 -171.665 199 Weight 162.3 kg Intake: IV 143 143 39 0.9 Normal Saline @ 10mL/ 110 110 30 hr 0.9 Normal Saline 33 33 9 Pressure Bag Intake, IV Titration 258.013 235.335 Amount DOBUTamine DRIP 500 mg In 258.013 Dextrose/Water 1 250ml. bag @ 2.5 MCG/KG/MIN 12. 653 mls/hr IV .[id number] [facility] Rx#:[id number] DOBUTamine DRIP 500 mg In 235.335 Dextrose/Water 1 250ml. bag @ 5 MCG/KG/MIN 24.345 mls/hr IV .[id number] [facility] Rx#:[id number] Oral 670 300 Output: Urine 441 550 140 Other: Voiding Method Indwelling Catheter Indwelling Catheter Indwelling Catheter ABP, PAP, CO, CI - Last Documented Arterial Blood Pressure 101/59 - Labs CBC & Chem 7: 09/15/20 03:10 09/15/20 03:10 Labs: Abnormal Lab Results - Last 24 Hours (Table) 09/15/20 09/15/20 09/15/20 Range/Units 03:10 03:10 03:58 WBC 12.5 H (3.8-10.6) k/uL RDW 16.2 H (11.5-15.5) % Plt Count 101 L (150-450) k/uL Neutrophils # 10.3 H (1.3-7.7) k/uL Lymphocytes # 0.6 L (1.0-4.8) k/uL PT 23.7 H (9.0-12.0) sec INR 2.4 H (<1.2) BUN 64 H (9-20) mg/dL Creatinine 1.90 H (0.66-1.25) mg/dL Glucose 101 H (74-99) mg/dL Microbiology - Last 24 Hours (Table) 09/07/20 17:45 Gram Stain - Final Leg - Right Wound Culture - Final Beta Hemolytic Strep Group G Pseudomonas fluorescens/putida 09/08/20 15:24 Blood Culture - Final Blood No Growth after 144 hours
--- NOTE | 2020-09-15 12:14 | P.PN ---
Subjective Progress Note Date: 09/15/20 Principal diagnosis: Acute hypoxic respiratory failure secondary to acute exacerbation of systolic congestive heart failure. This is a 64-year-old male patient, morbidly obese with biventricular failure, chronic systolic heart failure, chronic kidney disease, chronic itchy fibri llation and various other medical problems and comorbidities as will be discussed with him. The patient comes in with significant weight gain, volume overload, increased lower extremity edema, 1 in lower extremities more so on the left along with erythema and several episodes of the left lower extremity. The patient also has vesicles that are filled with fluid secondary to her increased subcutaneous emphysema mainly over the right lower flank area, and pressure points. For that reason, the patient was hospitalized. The patient was fine to be hypoxic. He is not known to have any home oxygen. He was placed on oxygen currently is up to 15 L of oxygen by nasal cannula. No history of COPD most of smoking. His chest x-ray was consistent with cardiac regular and pulmonary edema. EKG was consistent with chronic atrial fibrillation with a LBBB pattern. The patient's white cell count was as high as 21.6 . The patient had a proBNP level of 17,004 100. Troponins were 0.053 respectively. Creatinine initially was at 1.7. The patient was initially started on a combination of diuretics and antibiotics. The patient was started on IV cefepime. The culture from the wound is positive for strep. White cell count is improving. Nevertheless, the patient developed some worsening renal function. The patient developed an acute on top of chronic kidney disease. The patient was accordingly started on dobutamine today. The echo showing an ejection fraction of 20-25%. RV severely dilated. LV is also moderately dilated. PA pressure was 42 mmHg. On 09/10/2020, I'm seeing the patient for a follow-up. Overnight, the patient got transferred to the intensive care unit as the patient was having episodes of hypotension and his systolic blood pressure was dropping in the mid 70s. Note that the patient was being treated with a combination of dobutamine and Lasix. I had to bring him to the intensive care unit and the patient was started on levo fed for hemodynamic support. Is currently on levo fed running at 0.04 mcg/kg per minute. Chest x-ray still showing cardiomegaly. Clinically he does have some edema lower extremities bilaterally and also edema on his flanks and hips area. He is also being treated for this unless of the left lower extremity. This morning, he remains on dobutamine at 2.5 Jc respiratory per minute. Remains on norepinephrine infusion at low dose. He is still on Lasix drip running at 10 mg an hour. An arterial line will be established for adequate blood pressure monitoring. He also benefit from the PICC line. He remains on IV cefepime. White cell count is down to 11. His INR currently is at 2.0 and the patient has an underlying atrial fibrillation rhythm with a LBBB pattern. Creatinine is on the rise and is currently up to 3.84 with a BUN of 72. On examination, the cellulitis still present in the left lower extremity although the area and his left lower extremity is less erythematous. In addition, the patient is currently on BiPAP for respiratory support. BiPAP is running at a pressure of 10/5 cm of water with an FiO2 of 40%. He is quite interested the respirator and is able to generate adequate tidal volumes and no signs of any significant respiratory distress. No signs of any CO2 narcosis. 09/11/2020, the patient is improved clinically. There is improvement in his mentation. The patient is much more awake and interactive and is currently off the BiPAP. He is back on oxygen at 5 L per minute nasal cannula. He did utilize the BiPAP throughout the day yesterday as the patient was lethargic and insignificant degree of respiratory distress. At the same time, lines were established, the patient was started on a high dose of dobutamine at 5 mg/kg/m and the patient was also started on Lasix drip at 10 mg an hour. Norepinephrine is also being utilized for hemodynamic support which is currently running at 0.06 mcg/kg per minute. This improved his overall hemodynamics. His urine output gradually picked up and currently is producing urine output in the order of 100 mL an hour. His net fluid balance has been negative. Also, he remains on antibiotics regarding the left lower extremity cellulitis. The area looks improved and it's much less erythematous and red on today's evaluation. The swelling is also improving and his lower extremities bilaterally. His white cell count is currently down to 9 and the patient's renal function continues to improve. His creatinine today is down to 3.1 with a BUN of 17. Rest of the electrodes shows some mild metabolic acidosis with a serum bicarb of 20. The patient's INR today is at 3.2. No bleeding complications. He is quite stable. Tolerating diet. Moving all 4 extremities without any limitation. No altered mentation. His cardiac rhythm remains atrial fibrillation. On 09/12/2020, the patient continues to be rather stable and probably improving. This morning, he is up on a recliner. He is watching television. He is on 8 L of oxygen by nasal cannula. He was on BiPAP overnight at a pressure of 10/5 cm of water. This morning, he was transitioned back to high flow oxygen at 8 L. He remains on dobutamine 5 mcg/kg per minute. He remains on norepinephrine infusion and this was gradually weaned off throughout the day yesterday and was turned off this morning. He is still on Lasix drip at 10 mg an hour. He is in a negative fluid balance of 1 L over the past 24 hours and the patient has shown improvement in his creatinine which is down to 2.5. Urine output is in order of 150 mL an hour. No fever. No chills. Several episodes of the lower extremities have been improving as stated earlier and the patient remains on broad-spectrum antibiotics. No Coumadin was given yesterday and INR today is at 3.1. He remains on cefepime for now. Previously obtain cultures have shown that traumatic strep group G and gram-negative bacillus in the lower extremity wound cultures. His white cell count is down to 8.9. He is tolerating his diet. No other significant events. His cardiac rhythm currently is a chair fibrillation. His weight is also down. Patient was reevaluated today on 09/13/2020, remains in the ICU, remains on Lasix drip at 10 mg per hour is also on the Peter X at 5 mcg/kg/m. IV fluid is at KVO, patient is on 8 L high flow nasal cannula with O2 sat showed 91%, is also intermittently on BiPAP 10/5 at 50% FiO2 especially at bedtime. Patient is being treated for acute systolic congestive heart failure with ejection fraction of 20-25%, and he has clearly anasarca. Chest x-ray continues to show heart nahid lure and cardiomegaly. Patient is on cefepime for lower extremity cellulitis. Since admission, the patient is steadily improving clinically, but clearly not quite ready to be discharged home yet. CBC is relatively normal INR is 2.9. Electrolytes are normal BUN is 60 improving creatinine is 2.0 improving. Chest x-ray continues to show congestive heart failure. Reevaluated today on 09/14/2020, patient remains in the ICU, he is on 8 L high flow nasal cannula with O2 saturation 95%. He was on Lasix at 10 mg per hour and dobutamine at 2.5 mcg/kg/m, however both have been changed that dobutamine is presently on hold, and Lasix was changed to IV Lasix 60 mg IV push every 12 hours. Patient is in A. fib with a rate of 10 7 at night he is on BiPAP 10/5/50%. Patient had a -1.6 L of fluid over the last 24 hours. Continues to be in negative balance over the last few days he is over 9 L negative fluid balance. Renal functioning was noted, creatinine continues to improve down to 1.93 BUN is 57 and I believe this is mostly because of Dobutrex on board. INR remains at 2.7. Patient continues to have central lines in place which I will recommend removing and placement of a midline. Will eventually need possibly a PICC line. CBC is relatively normal. Chest x-ray showed bilateral interstitial infiltrates/edema Reevaluated today on 09/15/2020, patient remains in the ICU, presently on 8 L high flow cannula, at times he goes on BiPAP 10/5/50%, patient had to be placed back on Dobutrex yesterday at 5 mcg/kg/m, mostly because his urine output was extremely poor after Dobutrex was discontinued. Patient stopped basically making urine, he was on Lasix IV push every 12 hours. He is presently in atrial fibrillation with a rate of 124, being addressed by cardiology. Patient is off IV infusion of Lasix. Urine output is picking up since Dobutrex was restarted. Patient is supposed to have a PICC line, but his INR is elevated, and I plan to give him vitamin K and arrange for PICC line possibly on Sunday. We'll try to get his INR down further today it is 2.4. Clinically the patient is feeling better, continues to lose weight continues to diurese, and continues to feel better with less shortness of breath and less swelling in the legs. Renal profile continues to improve his creatinine today is 1.90, it was as high as 3.84 5 days ago. Objective - Vital Signs Vital signs: Vital Signs Temp 98.0 F 09/15/20 08:00 Pulse 104 H 09/15/20 11:39 Resp 12 09/15/20 11:00 BP 81/69 09/15/20 11:00 Pulse Ox 75 L 09/15/20 10:00 Intake & Output 09/14/20 09/15/20 09/15/20 18:59 06:59 18:59 Intake Total 1071.013 378.335 365 Output Total 441 550 290 Balance 630.013 -171.665 75 Weight 162.3 kg Intake: IV 143 143 65 0.9 Normal Saline @ 10mL/ 110 110 50 hr 0.9 Normal Saline 33 33 15 Pressure Bag Intake, IV Titration 258.013 235.335 Amount DOBUTamine DRIP 500 mg In 258.013 Dextrose/Water 1 250ml. bag @ 2.5 MCG/KG/MIN 12. 653 mls/hr IV .[id number] [facility] Rx#:[id number] DOBUTamine DRIP 500 mg In 235.335 Dextrose/Water 1 250ml. bag @ 5 MCG/KG/MIN 24.345 mls/hr IV .[id number] [facility] Rx#:[id number] Oral 670 300 Output: Urine 441 550 290 Other: Voiding Method Indwelling Catheter Indwelling Catheter Indwelling Catheter ABP, PAP, CO, CI - Last Documented Arterial Blood Pressure 107/67 - Exam Physical Exam: Revealed 64-year-old white male obese On 8 L high flow cannula. Asymptomatic Head: Atraumatic, normocephalic. Dry mucous membranes. HEENT: Short obese neck. [Neck is supple.] [No neck masses.] [No thyromegaly.] [No JVD.EOMI, nonicteric. PERRLA, Chest: Symmetrical chest expansion, fine crackles at the bases persists.. Cardiac Exam: Distant S1 and S2,, no S3 gallop, no murmur.] Abdomen: [Obese, Soft, nontender, no megaly, no rebound, no guarding, normal bowel sounds.] Extremities: [No clubbing, 1+ bipedal edema, no cyanosis.] Good Pulses bilaterally. Neurological Exam: [No focal neurologic deficit.] Alert oriented 3. Psychiatric: Normal mood affect and normal mental status examination. Skin: Left lower extremity cellulitis and erythema persists. - Labs CBC & Chem 7: 09/15/20 03:10 09/15/20 03:10 Labs: Abnormal Lab Results - Last 24 Hours (Table) 09/15/20 09/15/20 09/15/20 Range/Units 03:10 03:10 03:58 WBC 12.5 H (3.8-10.6) k/uL RDW 16.2 H (11.5-15.5) % Plt Count 101 L (150-450) k/uL Neutrophils # 10.3 H (1.3-7.7) k/uL Lymphocytes # 0.6 L (1.0-4.8) k/uL PT 23.7 H (9.0-12.0) sec INR 2.4 H (<1.2) BUN 64 H (9-20) mg/dL Creatinine 1.90 H (0.66-1.25) mg/dL Glucose 101 H (74-99) mg/dL Microbiology - Last 24 Hours (Table) 09/07/20 17:45 Gram Stain - Final Leg - Right Wound Culture - Final Beta Hemolytic Strep Group G Pseudomonas fluorescens/putida 09/08/20 15:24 Blood Culture - Final Blood No Growth after 144 hours Assessment and Plan Assessment: Impression: Acute hypoxic respiratory failure secondary to acute exacerbation of systolic congestive heart failure. Back on Dobutrex, Bilateral lower extremity cellulitis, on cefepime. Acute on chronic kidney injury, improving with Dobutrex. Leukocytosis secondary to cellulitis. Chronic atrial fibrillation with left bundle branch block pattern. Morbid obesity with BMI of 56.5. Benign essential hypertension. Coronary artery disease/ischemic cardiomyopathy Hypothyroidism. Dyslipidemia. obstructive sleep apnea syndrome. On BiPAP. Recommendation: Dobutrex was restarted yesterday. Continue Lasix IV push. No need for IV infusion of Lasix. Continue present supportive care measures. Continue to monitor daily electrolytes and renal profile. Continue BiPAP at night. Start patient on Lovenox, hold Coumadin, given 5 mg of vitamin K, planned for a PICC line in the next 48 hours. Continue amiodarone. And metoprolol. We'll continue to follow. Prognosis remains relatively guarded. We'll continue to monitor in the ICU for now. Time with Patient: Less than 30
[2020-09-15] MEDS: allopurinoL 100 MG TAB PO SCH (12:21)
[2020-09-15] MEDS ORDERED: WARFARIN 5 MG TAB PO SCH (18:00)
[2020-09-15] MEDS: TAMSULOSIN 0.4 MG CAP.ER.24H PO SCH (18:11)
[2020-09-15] MEDS: CEFEPIME 2 GM in SODIUM CHLORIDE 0.9% 100 ML IVPB SCH (18:12)
[2020-09-16] MEDS: DOBUTamine DRIP 500 MG in DEXTROSE/WATER 1 250ML.BAG IV SCH ×2 (01:54→17:21)
[2020-09-16 04:31] LABS: Anisocytosis Slight; Basophils # (A) 0.1 k/uL (0-0.2); Basophils % (A) 1 %; Eosinophils # (A) 0.7 k/uL (0-0.7); Eosinophils % (A) 6 %; HCT 43.7 % (39.0-53.0); HGB 14.1 gm/dL (13.0-17.5); Lymphocytes # (A) 0.6 k/uL (1.0-4.8); Lymphocytes % (A) 5 %; MCHC 32.3 g/dL (31.0-37.0); MCV 92.8 fL (80.0-100.0); Mean Platelet Volume 13.5; Monocytes # (A) 0.5 k/uL (0-1.0); Monocytes % (A) 4 %; Neutrophils # (A) 9.6 k/uL (1.3-7.7); Neutrophils % (A) 82 %; Platelet Count 116 k/uL (150-450); RBC 4.71 m/uL (4.30-5.90); RDW 16.2 % (11.5-15.5); WBC 11.7 k/uL (3.8-10.6)
[2020-09-16 04:38] LABS: INR 1.5 (<1.2); Prothrombin Time 14.8 sec (9.0-12.0)
[2020-09-16 04:49] LABS: Calcium 9.4 mg/dL (8.4-10.2)
--- NOTE | 2020-09-16 05:07 | PN ---
PROGRESS NOTE DATE OF SERVICE: 09/15/2020 REASON FOR FOLLOWUP: Bilateral lower extremity ulcers and cellulitis. INTERVAL HISTORY: Patient is afebrile. The patient is breathing comfortably. The patient is hemodynamically stable on pressor support. The patient is currently on 8 L nasal cannula. Denies any chest pain. No worsening cough. No abdominal pain or pain to the lower extremity. EXAMINATION: Blood pressure 104/64, pulse of 104, temperature 98.2. He is 96% on 8 L nasal cannula. General description is a middle-aged male lying in bed in no distress. Respiratory system: Unlabored breathing, decreased intensity of breath sounds. No wheeze. Heart: S1, S2. Regular rate and rhythm. Abdomen: Soft, no tenderness. LABS: Hemoglobin 13, white count 12.5, BUN of 64, creatinine 1.90. Blood culture with strep and Pseudomonas. DIAGNOSTIC IMPRESSION AND PLAN: Patient with bilateral lower extremity venostasis ulcer and cellulitis in this patient currently covered with cefepime to continue. Local wound care with Aquacel dressing and Hermes wrap and monitor clinical course closely. MMODL / IJN: [id number] /
[2020-09-16 06:08] LABS: Large Platelets Present
[2020-09-16] MEDS: MIDODRINE 5 MG TAB PO SCH ×3 (06:35→17:21)
[2020-09-16] MEDS: CEFEPIME 2 GM in SODIUM CHLORIDE 0.9% 100 ML IVPB SCH ×2 (06:37→17:22)
[2020-09-16] MEDS: NOREPINEPHRINE 4 MG in SODIUM CHLORIDE 0.9% 250 ML IV SCH ×3 (07:08→22:29)
[2020-09-16] MEDS: IPRATROPIUM-ALBUTEROL 3 ML NEB INHALATION SCH ×4 (07:51→19:09)
--- NOTE | 2020-09-16 08:06 | P.PN ---
Subjective Patient is seen in follow-up for acute kidney injury on chronic kidney disease. Maintained on IV Lasix. Also on dobutamine. Denies chest pain or shortness of breath. Oral intake fair. Blood pressure stable. Vital signs are stable. General: The patient appeared well nourished and normally developed. HEENT: Head exam is unremarkable. Neck is without jugular venous distension. LUNGS: Breath sounds decreased. HEART: Rate and Rhythm are regular. ABDOMEN: Soft, obese. EXTREMITITES: 1+ edema. Lower extremities wrapped. Objective - Vital Signs Vital signs: Vital Signs Temp 97.8 F 09/16/20 04:00 Pulse 112 H 09/16/20 07:52 Resp 15 09/16/20 07:00 BP 111/71 09/15/20 20:30 Pulse Ox 93 L 09/16/20 07:00 Intake & Output 09/15/20 09/16/20 09/16/20 18:59 06:59 18:59 Intake Total 706 781.597 13 Output Total 660 640 60 Balance 46 141.597 -47 Weight 164.2 kg Intake: IV 156 156 13 0.9 Normal Saline @ 10mL/ 120 120 10 hr 0.9 Normal Saline 36 36 3 Pressure Bag Intake, IV Titration 250 225.597 Amount DOBUTamine DRIP 500 mg In 250 225.597 Dextrose/Water 1 250ml. bag @ 2.5 MCG/KG/MIN 12. 173 mls/hr IV .[id number] [facility] Rx#:[id number] Oral 300 400 Output: Urine 660 640 60 Other: Voiding Method Indwelling Catheter Indwelling Catheter ABP, PAP, CO, CI - Last Documented Arterial Blood Pressure 108/63 - Labs CBC & Chem 7: 09/16/20 04:19 09/16/20 04:19 Labs: Abnormal Lab Results - Last 24 Hours (Table) 09/16/20 09/16/20 09/16/20 Range/Units 04:19 04:19 04:19 WBC 11.7 H (3.8-10.6) k/uL RDW 16.2 H (11.5-15.5) % Plt Count 116 L (150-450) k/uL Neutrophils # 9.6 H (1.3-7.7) k/uL Lymphocytes # 0.6 L (1.0-4.8) k/uL PT 14.8 H (9.0-12.0) sec INR 1.5 H (<1.2) Sodium 135 L (137-145) mmol/L BUN 66 H (9-20) mg/dL Creatinine 1.89 H (0.66-1.25) mg/dL Glucose 112 H (74-99) mg/dL Microbiology - Last 24 Hours (Table) 09/07/20 17:45 Gram Stain - Final Leg - Right Wound Culture - Final Beta Hemolytic Strep Group G Pseudomonas fluorescens/putida Assessment and Plan Plan: Assessment: 1. Acute kidney injury secondary to ATN secondary to cardiorenal syndrome. Now nonoliguric. Renal function stable. Creatinine 1.89 today. 2. Chronic kidney disease stage IIIa. Baseline creatinine 1.2-1.3 secondary to nephrosclerosis. 3. Acute on chronic systolic CHF with ejection fraction of 20-25%. 4. Metabolic acidosis secondary to acute kidney injury. Maintained on oral bicarbonate. 5. Volume overload. Improving with diuresis. 6. Hypokalemia from diuresis. Replaced. Better. Plan: Maintain dobutamine and IV Lasix. Maintain midodrine - hold for systolic blood pressure greater than 110. Continue to monitor renal function and urine output. No need for renal replacement therapy at this time. No changes from nephrology standpoint today.
[2020-09-16] MEDS: ENOXAPARIN 80 MG/0.8 ML SYRINGE SQ SCH ×2 (08:22→21:33)
[2020-09-16] MEDS: FAMOTIDINE 20 MG TAB PO SCH (08:22)
[2020-09-16] MEDS: ASPIRIN 81 MG PO SCH (08:22)
[2020-09-16] MEDS: SODIUM BICARBONATE TAB 650 MG TAB PO SCH ×2 (08:22→21:33)
[2020-09-16] MEDS: LEVOTHYROXINE 88 MCG TAB PO SCH (08:22)
[2020-09-16] MEDS: METOPROLOL TARTRATE 50 MG TAB PO SCH ×2 (08:22→21:33)
[2020-09-16] MEDS: AMIODARONE 200 MG TAB PO SCH ×2 (08:23→21:33)
[2020-09-16] MEDS: FUROSEMIDE 10 MG/ML 10 ML VIAL IV SCH ×2 (08:23→21:33)
--- NOTE | 2020-09-16 08:26 | XR ---
EXAMINATION TYPE: XR chest 1V DATE OF EXAM: 09/16/2020 COMPARISON: 09/14/2020 HISTORY: 64-year-old male shortness of breath TECHNIQUE: Single frontal view of the chest is obtained. FINDINGS: Heart is moderately enlarged. Mild prominence to the pulmonary vasculature but improvement in aeratio n throughout the right lung. No sizable effusion. IMPRESSION: Similar moderate cardiomegaly. There may be residual mild pulmonary vascular congestion but significa nt improvement in aeration throughout the right lung with clearance of the previous airspace disease.
--- NOTE | 2020-09-16 11:38 | PN ---
PROGRESS NOTE Mr. Sanatna is a 64-year-old gentleman with probable nonischemic cardiomyopathy and atrial fibrillation. He is looking better, but the urine output is fairly decent. I will decrease the dobutamine from 5-2.5 mcg/kg per minute. Vitals are stable. JVD is 1 cm. No carotid bruit. Heart exam reveals S1, S2 with irregular rhythm. Short systolic murmur. Lungs reveal improved air entry. Abdomen is soft. Lower extremity edema is improved. PLAN: Continue current medications, decrease dobutamine and continue amiodarone and Lopressor combination and gradual increase activity. MMODL / IJN: [id number] /
--- NOTE | 2020-09-16 12:24 | P.PN ---
Subjective Patient is a 64-year-old male with a known history of chronic atrial fibrillation on anticoagulation with warfarin, chronic CHF with systolic dysfun ction, hypertension, hyperlipidemia, history of my, hypothyroidism, stage III CKD, bilateral lower extremity venous insufficiency/venous stasis and previous history of cellulitis and other medical problems presents to ER with complaints of shortness of breath worsening for the past 2-4 weeks. Patient was also having increased leg swelling. No complaints of chest pain. Patient diagnosed with severe systolic CHF with ejection fraction of 20-25% with resultant acute hypoxic respiratory failure, patient is placed on dobutamine and Lasix drips. Also he needed some mild dose norepinephrine drip for blood pressure support. He is on cefepime for left leg cellulitis. Creatinine is improving 3.8 down to 3.1 today, his acute kidney injury secondary to cardiorenal syndrome He is on Coumadin for A. fib. INR is 3.2 today. Wound culture is growing Streptococcus and gram-negative bacilli today patient feels better with breathing more easily, he is needing 6 L of oxygen via nasal cannula Patient is hemodynamically stable. 09/12/2020 Patient's remains in the ICU, he states that his dyspnea is a slightly better, patient noticed to be tachypneic and he needed 8 liter/min of oxygen today compared to 6 L/m yesterday. He has left leg cellulitis and bilateral leg edema edges improving slightly. B oth legs are is wrapped He had to use BiPAP last night for a couple hours. INR is 3.2 and 3.1, creatinine coming down to 2.5. Wound culture is growing Streptococcus and gram-negative bacilli He remains on Lasix drip and dobutamine drip while little bit was discontinued today. He remains on cefepime, warfarin 5 mg given tonight per allopathic doctor. He is on Lasix and dobutamine drip and aspirin 81 mg. 09/13/2020 Patient Wanted to hurt in the ICU currently. His diuresing well while he is on Lasix and dobutamine drip. No more need for Levophed drip. However he still short of breath at rest, improved since admission. He is on 8 L/m of oxygen and is on cannula this morning. He has bilateral leg swelling which are improving as well. His INR is 2.9 after he got 5 units of Coumadin last night, creatinine improving down to 2.0 today. He also continued on antibiotics with cefepime, wound culture showing beta- hemolytic streptococcus and gram-negative bacilli, final results still pending 09/14/2020 Patient is remains in the ICU, breathing leg similar to yesterday. Still on 8 L oxygen via nasal cannula. However his creatinine level at 2.0 yesterday and 1.9 today. His dobutamine drip was stopped and laxity dropped switched to IV of 60 mg twice daily. Other than that there is no significant change from yesterday. Both legs are is wrapped He remains on cefepime, warfarin dosing with INR today is 2.7. Also I baby dose of aspirin at 81 mg/h. 09/15/2020 Patient most tachypneic today. Still on 8 L oxygen per minute via nasal cannula. Use BiPAP at night LegS are is wrapped. INR today is 2.4, rest of labs are pending. Patient is still on cefepime for leg cellulitis. Patient still on warfarin, IV Lasix 60 mg twice daily. Patient is having good urine output. We will restrict her fluids. 09/16/2020 Patient in the ICU sitting in chair as usual. This less tachypneic to me emeyr inge he still have subjective feeling of dyspnea and he is still on 8 L of oxygen per minute. Rest of vitals are stable, his creatinine stable at 1.8, WBC is 11 K, platelet count is 116K. Sims catheter is in place with good urine output Is still on cefepime, Lovenox 80 mg twice daily, IV Lasix twice daily, dobutamine drip. Amiodarone load from 400 down to 200 by allopathic doctor. Also he is on midodrine and metoprolol. And aspirin 81 mg. Warfarin was discontinued yesterday and didn't INR was 1.5 after vitamin K. Objective - Vital Signs Vital signs: Vital Signs Temp 97.8 F 09/16/20 04:00 Pulse 91 09/16/20 11:45 Resp 34 H 09/16/20 10:00 BP 111/71 09/16/20 10:00 Pulse Ox 96 09/16/20 10:00 Intake & Output 09/15/20 09/16/20 09/16/20 18:59 06:59 18:59 Intake Total 706 781.597 65 Output Total 660 640 385 Balance 46 141.597 -320 Weight 164.2 kg Intake: IV 156 156 65 0.9 Normal Saline @ 10mL/ 120 120 50 hr 0.9 Normal Saline 36 36 15 Pressure Bag Intake, IV Titration 250 225.597 Amount DOBUTamine DRIP 500 mg In 250 225.597 Dextrose/Water 1 250ml. bag @ 2.5 MCG/KG/MIN 12. 173 mls/hr IV .[id number] [facility] Rx#:[id number] Oral 300 400 Output: Urine 660 640 385 Other: Voiding Method Indwelling Catheter Indwelling Catheter Indwelling Catheter ABP, PAP, CO, CI - Last Documented Arterial Blood Pressure 101/62 - Exam GENERAL: The patient is alert and oriented x3, not in any acute distress. Well developed, well nourished. HEENT: Pupils are round and equally reacting to light. EOMI. No scleral icterus. No conjunctival pallor. Normocephalic, atraumatic. No pharyngeal erythema. No thyromegaly. CARDIOVASCULAR: S1 and S2 present. No murmurs, rubs, or gallops. -PULMONARY: Chest is clear to auscultation, no wheezing or. Bilateral basal crepitation ABDOMEN: Soft, nontender, nondistended, normoactive bowel sounds. No palpable organomegaly. MUSCULOSKELETAL: No joint swelling or deformity. -EXTREMITIES: No cyanosis, clubbing, . Bilateral patellar like edema NEUROLOGICAL: Gross neurological examination did not reveal any focal deficits. SKIN: No rashes. no petechiae. - Labs CBC & Chem 7: 09/16/20 04:19 09/16/20 04:19 Labs: Abnormal Lab Results - Last 24 Hours (Table) 09/16/20 09/16/20 09/16/20 Range/Units 04:19 04:19 04:19 WBC 11.7 H (3.8-10.6) k/uL RDW 16.2 H (11.5-15.5) % Plt Count 116 L (150-450) k/uL Neutrophils # 9.6 H (1.3-7.7) k/uL Lymphocytes # 0.6 L (1.0-4.8) k/uL PT 14.8 H (9.0-12.0) sec INR 1.5 H (<1.2) Sodium 135 L (137-145) mmol/L BUN 66 H (9-20) mg/dL Creatinine 1.89 H (0.66-1.25) mg/dL Glucose 112 H (74-99) mg/dL Microbiology - Last 24 Hours (Table) 09/07/20 17:45 Gram Stain - Final Leg - Right Wound Culture - Final Beta Hemolytic Strep Group G Pseudomonas fluorescens/putida Assessment and Plan Assessment: Acute hypoxic respiratory failure due to acute CHF. Acute on chronic CHF with systolic dysfunction ejection fraction 2025% as per TTE Bilateral lower extremity swelling with left leg cellulitis. Chronic atrial fibrillation on anticoagulation with warfarin Subtherapeutic Level. Coagulopathy secondary to Coumadin Mildly elevated troponin level likely due to demand ischemia with CHF and also complaining CK D Worsening Acute kidney injury likely due to cardiorenal. Chronic kidney disease stage III Hypertension Hyperlipidemia History of [place] Morbid obesity BMI 47.3 Plan: This is a pleasant 64 years old male who presents with severe CHF, left leg cellulitis and LELAND. Continue with Lasix IV push, monitor urine output. Monitor electrolytes. Cardiology and pulmonary/critical care team consult as well as nephrology team on the case Continue with Lasix and fluid restriction and monitor creatinine and urine output Continue with antibiotic, currently with cefepime Monitor INR while he is on Coumadin. Labs and medication were reviewed.. Continue same treatment. Continue with symptomatic treatment. Resume home medication. Monitor lytes and vitals. DVT and GI prophylaxis. Further recommendations as per clinical course of the patient DVT prophylaxis: on Coumadin GI Prophylaxis: Pepcid Prognosis is guarded
[2020-09-16] MEDS: allopurinoL 100 MG TAB PO SCH (12:33)
[2020-09-16] MEDS ORDERED: LIDOCAINE 1% INJ 10MG/ML (20 ML MDV) ONE (12:45)
--- NOTE | 2020-09-16 12:45 | P.PN ---
Subjective Progress Note Date: 09/16/20 Principal diagnosis: Acute hypoxic respiratory failure secondary to acute exacerbation of systolic congestive heart failure. This is a 64-year-old male patient, morbidly obese with biventricular failure, chronic systolic heart failure, chronic kidney disease, chronic itchy fibri llation and various other medical problems and comorbidities as will be discussed with him. The patient comes in with significant weight gain, volume overload, increased lower extremity edema, 1 in lower extremities more so on the left along with erythema and several episodes of the left lower extremity. The patient also has vesicles that are filled with fluid secondary to her increased subcutaneous emphysema mainly over the right lower flank area, and pressure points. For that reason, the patient was hospitalized. The patient was fine to be hypoxic. He is not known to have any home oxygen. He was placed on oxygen currently is up to 15 L of oxygen by nasal cannula. No history of COPD most of smoking. His chest x-ray was consistent with cardiac regular and pulmonary edema. EKG was consistent with chronic atrial fibrillation with a LBBB pattern. The patient's white cell count was as high as 21.6 . The patient had a proBNP level of 17,004 100. Troponins were 0.053 respectively. Creatinine initially was at 1.7. The patient was initially started on a combination of diuretics and antibiotics. The patient was started on IV cefepime. The culture from the wound is positive for strep. White cell count is improving. Nevertheless, the patient developed some worsening renal function. The patient developed an acute on top of chronic kidney disease. The patient was accordingly started on dobutamine today. The echo showing an ejection fraction of 20-25%. RV severely dilated. LV is also moderately dilated. PA pressure was 42 mmHg. On 09/10/2020, I'm seeing the patient for a follow-up. Overnight, the patient got transferred to the intensive care unit as the patient was having episodes of hypotension and his systolic blood pressure was dropping in the mid 70s. Note that the patient was being treated with a combination of dobutamine and Lasix. I had to bring him to the intensive care unit and the patient was started on levo fed for hemodynamic support. Is currently on levo fed running at 0.04 mcg/kg per minute. Chest x-ray still showing cardiomegaly. Clinically he does have some edema lower extremities bilaterally and also edema on his flanks and hips area. He is also being treated for this unless of the left lower extremity. This morning, he remains on dobutamine at 2.5 Jc respiratory per minute. Remains on norepinephrine infusion at low dose. He is still on Lasix drip running at 10 mg an hour. An arterial line will be established for adequate blood pressure monitoring. He also benefit from the PICC line. He remains on IV cefepime. White cell count is down to 11. His INR currently is at 2.0 and the patient has an underlying atrial fibrillation rhythm with a LBBB pattern. Creatinine is on the rise and is currently up to 3.84 with a BUN of 72. On examination, the cellulitis still present in the left lower extremity although the area and his left lower extremity is less erythematous. In addition, the patient is currently on BiPAP for respiratory support. BiPAP is running at a pressure of 10/5 cm of water with an FiO2 of 40%. He is quite interested the respirator and is able to generate adequate tidal volumes and no signs of any significant respiratory distress. No signs of any CO2 narcosis. 09/11/2020, the patient is improved clinically. There is improvement in his mentation. The patient is much more awake and interactive and is currently off the BiPAP. He is back on oxygen at 5 L per minute nasal cannula. He did utilize the BiPAP throughout the day yesterday as the patient was lethargic and insignificant degree of respiratory distress. At the same time, lines were established, the patient was started on a high dose of dobutamine at 5 mg/kg/m and the patient was also started on Lasix drip at 10 mg an hour. Norepinephrine is also being utilized for hemodynamic support which is currently running at 0.06 mcg/kg per minute. This improved his overall hemodynamics. His urine output gradually picked up and currently is producing urine output in the order of 100 mL an hour. His net fluid balance has been negative. Also, he remains on antibiotics regarding the left lower extremity cellulitis. The area looks improved and it's much less erythematous and red on today's evaluation. The swelling is also improving and his lower extremities bilaterally. His white cell count is currently down to 9 and the patient's renal function continues to improve. His creatinine today is down to 3.1 with a BUN of 17. Rest of the electrodes shows some mild metabolic acidosis with a serum bicarb of 20. The patient's INR today is at 3.2. No bleeding complications. He is quite stable. Tolerating diet. Moving all 4 extremities without any limitation. No altered mentation. His cardiac rhythm remains atrial fibrillation. On 09/12/2020, the patient continues to be rather stable and probably improving. This morning, he is up on a recliner. He is watching television. He is on 8 L of oxygen by nasal cannula. He was on BiPAP overnight at a pressure of 10/5 cm of water. This morning, he was transitioned back to high flow oxygen at 8 L. He remains on dobutamine 5 mcg/kg per minute. He remains on norepinephrine infusion and this was gradually weaned off throughout the day yesterday and was turned off this morning. He is still on Lasix drip at 10 mg an hour. He is in a negative fluid balance of 1 L over the past 24 hours and the patient has shown improvement in his creatinine which is down to 2.5. Urine output is in order of 150 mL an hour. No fever. No chills. Several episodes of the lower extremities have been improving as stated earlier and the patient remains on broad-spectrum antibiotics. No Coumadin was given yesterday and INR today is at 3.1. He remains on cefepime for now. Previously obtain cultures have shown that traumatic strep group G and gram-negative bacillus in the lower extremity wound cultures. His white cell count is down to 8.9. He is tolerating his diet. No other significant events. His cardiac rhythm currently is a chair fibrillation. His weight is also down. Patient was reevaluated today on 09/13/2020, remains in the ICU, remains on Lasix drip at 10 mg per hour is also on the Peter X at 5 mcg/kg/m. IV fluid is at KVO, patient is on 8 L high flow nasal cannula with O2 sat showed 91%, is also intermittently on BiPAP 10/5 at 50% FiO2 especially at bedtime. Patient is being treated for acute systolic congestive heart failure with ejection fraction of 20-25%, and he has clearly anasarca. Chest x-ray continues to show heart nahid lure and cardiomegaly. Patient is on cefepime for lower extremity cellulitis. Since admission, the patient is steadily improving clinically, but clearly not quite ready to be discharged home yet. CBC is relatively normal INR is 2.9. Electrolytes are normal BUN is 60 improving creatinine is 2.0 improving. Chest x-ray continues to show congestive heart failure. Reevaluated today on 09/14/2020, patient remains in the ICU, he is on 8 L high flow nasal cannula with O2 saturation 95%. He was on Lasix at 10 mg per hour and dobutamine at 2.5 mcg/kg/m, however both have been changed that dobutamine is presently on hold, and Lasix was changed to IV Lasix 60 mg IV push every 12 hours. Patient is in A. fib with a rate of 10 7 at night he is on BiPAP 10/5/50%. Patient had a -1.6 L of fluid over the last 24 hours. Continues to be in negative balance over the last few days he is over 9 L negative fluid balance. Renal functioning was noted, creatinine continues to improve down to 1.93 BUN is 57 and I believe this is mostly because of Dobutrex on board. INR remains at 2.7. Patient continues to have central lines in place which I will recommend removing and placement of a midline. Will eventually need possibly a PICC line. CBC is relatively normal. Chest x-ray showed bilateral interstitial infiltrates/edema Reevaluated today on 09/15/2020, patient remains in the ICU, presently on 8 L high flow cannula, at times he goes on BiPAP 10/5/50%, patient had to be placed back on Dobutrex yesterday at 5 mcg/kg/m, mostly because his urine output was extremely poor after Dobutrex was discontinued. Patient stopped basically making urine, he was on Lasix IV push every 12 hours. He is presently in atrial fibrillation with a rate of 124, being addressed by cardiology. Patient is off IV infusion of Lasix. Urine output is picking up since Dobutrex was restarted. Patient is supposed to have a PICC line, but his INR is elevated, and I plan to give him vitamin K and arrange for PICC line possibly on Sunday. We'll try to get his INR down further today it is 2.4. Clinically the patient is feeling better, continues to lose weight continues to diurese, and continues to feel better with less shortness of breath and less swelling in the legs. Renal profile continues to improve his creatinine today is 1.90, it was as high as 3.84 5 days ago. Reevaluated today on 09/16/2020, patient remains in the ICU, his Dobutrex is down to 2.5 mcg/kg/m, remains on Lasix 60 mg IV push every 12 hours. INR today is 1.5, and hopefully we could have a PICC line placed today if not today would be tomorrow. Patient is improving, decent urine output. Denies shortness of breath. He remains on 8 L high flow cannula. His last chest x-ray showed improvement in his interstitial edema. Creatinine is stable at 1.8. Sims catheter remains in place. Patient remains on cefepime Lovenox and Lasix as well as no dobutamine. He is also receiving amiodarone as per cardiology and remains on metoprolol for his atrial fibrillation. Coumadin is presently on hold. He is on Lovenox instead Objective - Vital Signs Vital signs: Vital Signs Temp 97.8 F 09/16/20 04:00 Pulse 91 09/16/20 11:45 Resp 34 H 09/16/20 10:00 BP 111/71 09/16/20 10:00 Pulse Ox 96 09/16/20 10:00 Intake & Output 09/15/20 09/16/20 09/16/20 18:59 06:59 18:59 Intake Total 706 781.597 65 Output Total 660 640 385 Balance 46 141.597 -320 Weight 164.2 kg Intake: IV 156 156 65 0.9 Normal Saline @ 10mL/ 120 120 50 hr 0.9 Normal Saline 36 36 15 Pressure Bag Intake, IV Titration 250 225.597 Amount DOBUTamine DRIP 500 mg In 250 225.597 Dextrose/Water 1 250ml. bag @ 2.5 MCG/KG/MIN 12. 173 mls/hr IV .[id number] [facility] Rx#:[id number] Oral 300 400 Output: Urine 660 640 385 Other: Voiding Method Indwelling Catheter Indwelling Catheter Indwelling Catheter ABP, PAP, CO, CI - Last Documented Arterial Blood Pressure 101/62 - Exam Physical Exam: Revealed 64-year-old white male obese On 8 L high flow cannula. Asymptomatic Head: Atraumatic, normocephalic. Dry mucous membranes. HEENT: Short obese neck. [Neck is supple.] [No neck masses.] [No thyromegaly.] [No JVD.EOMI, nonicteric. PERRLA, Chest: Symmetrical chest expansion, fine crackles at the bases persists.. Cardiac Exam: Distant S1 and S2,, no S3 gallop, no murmur.] Abdomen: [Obese, Soft, nontender, no megaly, no rebound, no guarding, normal bowel sounds.] Extremities: [No clubbing, 1+ bipedal edema, no cyanosis.] Good Pulses bilaterally. Neurological Exam: [No focal neurologic deficit.] Alert oriented 3. Psychiatric: Normal mood affect and normal mental status examination. Skin: Left lower extremity cellulitis and erythema persists. - Labs CBC & Chem 7: 09/16/20 04:19 09/16/20 04:19 Labs: Abnormal Lab Results - Last 24 Hours (Table) 09/16/20 09/16/20 09/16/20 Range/Units 04:19 04:19 04:19 WBC 11.7 H (3.8-10.6) k/uL RDW 16.2 H (11.5-15.5) % Plt Count 116 L (150-450) k/uL Neutrophils # 9.6 H (1.3-7.7) k/uL Lymphocytes # 0.6 L (1.0-4.8) k/uL PT 14.8 H (9.0-12.0) sec INR 1.5 H (<1.2) Sodium 135 L (137-145) mmol/L BUN 66 H (9-20) mg/dL Creatinine 1.89 H (0.66-1.25) mg/dL Glucose 112 H (74-99) mg/dL Microbiology - Last 24 Hours (Table) 09/07/20 17:45 Gram Stain - Final Leg - Right Wound Culture - Final Beta Hemolytic Strep Group G Pseudomonas fluorescens/putida Assessment and Plan Assessment: Impression: Acute hypoxic respiratory failure secondary to acute exacerbation of systolic congestive heart failure. He remains on Dobutrex at 2.5 mcg/kg/m Bilateral lower extremity cellulitis, on cefepime. Acute on chronic kidney injury, presently stable as long as patient is on dobu tamine. Leukocytosis secondary to cellulitis. Chronic atrial fibrillation with left bundle branch block pattern. Morbid obesity with BMI of 56.5. Benign essential hypertension. Coronary artery disease/ischemic cardiomyopathy Hypothyroidism. Dyslipidemia. obstructive sleep apnea syndrome. On BiPAP. Recommendation: Continue Dobutrex 2.5 mcg/kg/m Continue Lasix IV push. 60 mg IV push twice a day. Continue present supportive care measures. Continue to monitor daily electrolytes and renal profile. Continue BiPAP at night. Continue Lovenox, continue to hold Coumadin Continue amiodarone. And metoprolol. We'll continue to follow. Prognosis remains poor Time with Patient: Less than 30
[2020-09-16] MEDS ORDERED: LIDOCAINE 1% INJ 10MG/ML (20 ML MDV) SQ ONE (13:44)
--- NOTE | 2020-09-16 14:10 | XR ---
EXAMINATION TYPE: XR chest 1V portable DATE OF EXAM: 09/16/2020 COMPARISON: 09/16/2020 HISTORY: PICC placement TECHNIQUE: Single frontal view of the chest is obtained. FINDINGS: There is prominence of the interstitium which has worsened since the prior examination. Massive enlargement of the cardiac silhouette appears similar to the prior exam. IMPRESSION: There is prominence of the interstitium which has worsened since the prior examination.
--- NOTE | 2020-09-16 14:12 | XR ---
EXAMINATION TYPE: XR chest 1V portable DATE OF EXAM: 09/16/2020 COMPARISON: Earlier same date HISTORY: PICC TECHNIQUE: Single frontal view of the chest is obtained. FINDINGS: Right PICC terminates in the expected location of the superior vena cava. Prominence of the interstitium, right greater than left, appears similar to the prior exam. Massive enlargement of the cardiac silhouette is similar. IMPRESSION: Interval placement of right PICC.
--- NOTE | 2020-09-16 15:51 | IR ---
EXAMINATION TYPE: IR cvc insert >=5 years DATE OF EXAM: 09/16/2020 COMPARISON: NONE HISTORY: Biventricular heart failure, needs long-term intravenous access for therapy FINDINGS: Maximal barrier technique was utilized. Hand hygiene obtained with soap and water and alco hol-based hand rub. The skin overlying the right basilic vein was localized with ultrasound and noted to be compressible and patent by ultrasound. An ultrasound image was obtained and submitted on griselda ent's chart. Sterile technique utilized with the ultrasound machine. The skin overlying was prepped a nd draped and Lidocaine used for local anesthesia. A skin sushil was made with a scalpel. Access was gained to the vein under direct ultrasound guidance with a 21-gauge needle and a 0.018 inch wire was advanced. Access site was dilated with a peel-away sheath and the catheter tailored to length. Cath eter advanced centrally and a post procedure chest x-ray verified placement with tip at the superior vena cava. Catheter was fixed to the skin and a sterile dressing placed. Hemostasis achieved and th e catheter was aspirated and flushed with sterile saline. The patient remained in stable condition. IMPRESSION: STATUS POST ULTRASOUND GUIDED PICC LINE PLACEMENT, READY FOR USE. THIS PROCEDURE WAS PER FORMED BY THE UNDERSIGNED.
[2020-09-16] MEDS: TAMSULOSIN 0.4 MG CAP.ER.24H PO SCH (17:21)
--- NOTE | 2020-09-16 23:41 | PN ---
PROGRESS NOTE DATE OF SERVICE: 09/16/2020 REASON FOR FOLLOW UP: Lower extremity wound and cellulitis. INTERVAL HISTORY: The patient is afebrile. The patient is breathing comfortably. Denies having any chest pain or cough. No abdominal pain or any worsening pain to lower extremity. PHYSICAL EXAMINATION: Blood pressure 101/81, pulse of 120, temperature 98, he is 94% on 8 L nasal cannula. General description is a middle-aged male lying in bed in no distress. Respiratory system: Unlabored breathing, decreased intensity in breath sounds, no wheeze. Heart S1, S2. Regular rate and rhythm. Abdomen: Soft, no tenderness. Legs are currently wrapped up. No obvious drainage on the dressing. LABS: Hemoglobin 14, white count 11.7, BUN of 66, creatinine 1.89. DIAGNOSTIC IMPRESSION AND PLAN: Patient with bilateral lower extremity venous stasis ulcer and cellulitis. Cultures with Pseudomonas and Strep. The patient is currently covered with cefepime to continue local wound care with Aquacel silver dressing and Hermes wrap and continue supportive care. MMODL / IJN: [id number] /
[2020-09-17 05:10] LABS: INR 1.3 (<1.2); Prothrombin Time 13.1 sec (9.0-12.0)
[2020-09-17 05:40] LABS: Calcium 9.5 mg/dL (8.4-10.2); Potassium 4.5 mmol/L (3.5-5.1)
[2020-09-17 05:47] LABS: Anisocytosis Slight; HGB 12.5 gm/dL (13.0-17.5); MCH 29.2 pg (25.0-35.0); MCHC 31.4 g/dL (31.0-37.0); MCV 93.2 fL (80.0-100.0); Mean Platelet Volume 14.3; Platelet Count 122 k/uL (150-450); RBC 4.29 m/uL (4.30-5.90); RDW 16.7 % (11.5-15.5); WBC 12.2 k/uL (3.8-10.6)
[2020-09-17] MEDS: CEFEPIME 2 GM in SODIUM CHLORIDE 0.9% 100 ML IVPB SCH ×2 (06:22→20:37)
[2020-09-17] MEDS: LEVOTHYROXINE 100 MCG TAB PO SCH (06:22)
[2020-09-17] MEDS: NOREPINEPHRINE 4 MG in SODIUM CHLORIDE 0.9% 250 ML IV SCH ×3 (06:22→23:00)
[2020-09-17] MEDS: MIDODRINE 5 MG TAB PO SCH ×3 (06:22→20:38)
[2020-09-17] MEDS ORDERED: SODIUM CHLORIDE 0.9% 1,000 ML IV SCH (06:45)
[2020-09-17] MEDS: IPRATROPIUM-ALBUTEROL 3 ML NEB INHALATION SCH ×4 (07:39→20:36)
[2020-09-17 07:44] LABS: Band Neutrophils % 2 %; Basophils # (M) 0.12 k/uL (0-0.2); Eosinophils # (M) 0.61 k/uL (0-0.7); Lymphocytes # (M) 0.73 k/uL (1.0-4.8); Metamyelocytes # (M) 0.12 k/uL (0); Metamyelocytes % 1 %; Monocytes # (M) 0.37 k/uL (0-1.0); Myelocytes # (M) 0.12 k/uL (0); Myelocytes % 1 %; Neutrophils % (M) 84 %; Nucleated Red Blood Cells 0 /100 WBC (0-0); Total Cells Counted 200
[2020-09-17 07:45] LABS: Large Platelets Present
[2020-09-17] MEDS: SODIUM BICARBONATE TAB 650 MG TAB PO SCH ×2 (08:13→20:36)
[2020-09-17] MEDS: ENOXAPARIN 80 MG/0.8 ML SYRINGE SQ SCH ×2 (08:13→20:36)
[2020-09-17] MEDS: AMIODARONE 200 MG TAB PO SCH ×2 (08:14→20:36)
[2020-09-17] MEDS: ASPIRIN 81 MG PO SCH (08:14)
[2020-09-17] MEDS: METOPROLOL TARTRATE 50 MG TAB PO SCH ×2 (08:14→20:37)
[2020-09-17] MEDS: FAMOTIDINE 20 MG TAB PO SCH (08:14)
--- NOTE | 2020-09-17 08:16 | XR ---
EXAMINATION TYPE: XR chest 1V DATE OF EXAM: 09/17/2020 COMPARISON: 09/16/2020 INDICATION: Short of breath TECHNIQUE: Single frontal view of the chest is obtained. FINDINGS: The heart size is very prominent. The pulmonary vasculature is normal. Mild infiltrate may be at the right base. Correlate for atelectasis. Some minimal infiltrate may be i n the right upper lobe. PICC line is present with the tip in the region of the proximal superior vena cava, this been pulled back from prior exam. IMPRESSION: 1. Marked cardiomegaly. 2. Some mild atelectasis may be at the right lung base. 3. Minimal atypical pulmonary edema may be present
[2020-09-17] MEDS ORDERED: FUROSEMIDE 10 MG/ML 10 ML VIAL IV SCH (09:00)
[2020-09-17] MEDS ORDERED: FUROSEMIDE 10 MG/ML 10 ML VIAL IV STA (09:10)
--- NOTE | 2020-09-17 09:19 | P.PN ---
Subjective Patient is seen in follow-up for acute kidney injury on chronic kidney disease. Maintained on IV Lasix. Also on dobutamine. Denies chest pain or shortness of breath. Oral intake fair. Blood pressure stable. Renal function a little worse today. Vital signs are stable. General: The patient appeared well nourished and normally developed. HEENT: Head exam is unremarkable. Neck is without jugular venous distension. LUNGS: Breath sounds decreased. HEART: Rate and Rhythm are regular. ABDOMEN: Soft, obese. EXTREMITITES: Trace edema. Lower extremities wrapped. Objective - Vital Signs Vital signs: Vital Signs Temp 97.8 F 09/17/20 04:00 Pulse 100 09/17/20 07:57 Resp 17 09/17/20 07:00 BP 101/71 09/17/20 07:00 Pulse Ox 98 09/17/20 07:00 Intake & Output 09/16/20 09/17/20 09/17/20 18:59 06:59 18:59 Intake Total 406 470 75 Output Total 675 565 115 Balance -269 -95 -40 Weight 165.3 kg Intake: IV 156 120 75 0.9 Normal Saline @ 10mL/ 120 120 hr 0.9 Normal Saline 36 Pressure Bag Sodium Chloride 0.9% 1, 75 000 ml @ 75 mls/hr IV . [id number] [facility] Rx#:[id number] Intake, IV Titration 250 Amount DOBUTamine DRIP 500 mg In 250 Dextrose/Water 1 250ml. bag @ 2.5 MCG/KG/MIN 12. 173 mls/hr IV .[id number] [facility] Rx#:[id number] Oral 350 Output: Urine 675 565 115 Other: Voiding Method Indwelling Catheter Indwelling Catheter ABP, PAP, CO, CI - Last Documented Arterial Blood Pressure 117/77 - Labs CBC & Chem 7: 09/17/20 04:39 09/17/20 04:39 Labs: Abnormal Lab Results - Last 24 Hours (Table) 09/17/20 09/17/20 09/17/20 Range/Units 04:39 04:39 04:39 WBC 12.2 H (3.8-10.6) k/uL RBC 4.29 L (4.30-5.90) m/uL Hgb 12.5 L (13.0-17.5) gm/dL RDW 16.7 H (11.5-15.5) % Plt Count 122 L (150-450) k/uL Neutrophils # (Manual) 10.40 H (1.3-7.7) k/uL Lymphocytes # (Manual) 0.73 L (1.0-4.8) k/uL Metamyelocytes # (Man) 0.12 H (0) k/uL Myelocytes # (Manual) 0.12 H (0) k/uL PT 13.1 H (9.0-12.0) sec INR 1.3 H (<1.2) Sodium 135 L (137-145) mmol/L BUN 73 H (9-20) mg/dL Creatinine 2.20 H (0.66-1.25) mg/dL Glucose 107 H (74-99) mg/dL Assessment and Plan Plan: Assessment: 1. Acute kidney injury secondary to ATN secondary to cardiorenal syndrome. Renal function worse from diuresis. Creatinine 2.2 today. 2. Chronic kidney disease stage IIIa. Baseline creatinine 1.2-1.3 secondary to nephrosclerosis. 3. Acute on chronic systolic CHF with ejection fraction of 20-25%. 4. Metabolic acidosis secondary to acute kidney injury. Maintained on oral bicarbonate. 5. Volume overload. Improved with diuresis. 6. Hypokalemia from diuresis. Replaced. Better. Plan: Maintain dobutamine. Stop IV Lasix. Maintain midodrine - hold for systolic blood pressure greater than 110. Continue to monitor renal function and urine output.
[2020-09-17 11:01] VITALS: BMI 55.4
--- NOTE | 2020-09-17 11:41 | PN ---
PROGRESS NOTE HISTORY: Mr. Dey creatinine has gone up to 2.2. I believe we should cut back on his diuretics and hydrate him cautiously at 75 cc/hour. His dobutamine is at 2.5. He remains in atrial fib rate, control is fair. PHYSICAL EXAM: JVD 1 cm. No carotid bruit. S1-S2 heard normally irregular rhythm. Short systolic murmur. Lungs reveal diminished air entry. Abdomen is soft. Lower extremities reveal diminished pulses. Edema is improved. IMPRESSION: 1. Probably patient is somewhat pre renal today. 2. Nonischemic cardiomyopathy, probably, with no cardiac cath in the past. 3. Chronic atrial fib rate control has been improved. 4. Elevated creatinine. RECOMMENDATIONS: Cautious hydration. Decrease Lasix. Await further input from Nephrology. Continue dobutamine at 2.5 mics. MMODL / IJN: [id number] /
[2020-09-17] MEDS: DOBUTamine DRIP 500 MG in DEXTROSE/WATER 1 250ML.BAG IV SCH ×4 (11:49→23:39)
--- NOTE | 2020-09-17 12:04 | P.PN ---
Subjective Progress Note Date: 09/17/20 Principal diagnosis: Acute hypoxic respiratory failure secondary to acute exacerbation of systolic congestive heart failure. This is a 64-year-old male patient, morbidly obese with biventricular failure, chronic systolic heart failure, chronic kidney disease, chronic itchy fibri llation and various other medical problems and comorbidities as will be discussed with him. The patient comes in with significant weight gain, volume overload, increased lower extremity edema, 1 in lower extremities more so on the left along with erythema and several episodes of the left lower extremity. The patient also has vesicles that are filled with fluid secondary to her increased subcutaneous emphysema mainly over the right lower flank area, and pressure points. For that reason, the patient was hospitalized. The patient was fine to be hypoxic. He is not known to have any home oxygen. He was placed on oxygen currently is up to 15 L of oxygen by nasal cannula. No history of COPD most of smoking. His chest x-ray was consistent with cardiac regular and pulmonary edema. EKG was consistent with chronic atrial fibrillation with a LBBB pattern. The patient's white cell count was as high as 21.6 . The patient had a proBNP level of 17,004 100. Troponins were 0.053 respectively. Creatinine initially was at 1.7. The patient was initially started on a combination of diuretics and antibiotics. The patient was started on IV cefepime. The culture from the wound is positive for strep. White cell count is improving. Nevertheless, the patient developed some worsening renal function. The patient developed an acute on top of chronic kidney disease. The patient was accordingly started on dobutamine today. The echo showing an ejection fraction of 20-25%. RV severely dilated. LV is also moderately dilated. PA pressure was 42 mmHg. On 09/10/2020, I'm seeing the patient for a follow-up. Overnight, the patient got transferred to the intensive care unit as the patient was having episodes of hypotension and his systolic blood pressure was dropping in the mid 70s. Note that the patient was being treated with a combination of dobutamine and Lasix. I had to bring him to the intensive care unit and the patient was started on levo fed for hemodynamic support. Is currently on levo fed running at 0.04 mcg/kg per minute. Chest x-ray still showing cardiomegaly. Clinically he does have some edema lower extremities bilaterally and also edema on his flanks and hips area. He is also being treated for this unless of the left lower extremity. This morning, he remains on dobutamine at 2.5 Jc respiratory per minute. Remains on norepinephrine infusion at low dose. He is still on Lasix drip running at 10 mg an hour. An arterial line will be established for adequate blood pressure monitoring. He also benefit from the PICC line. He remains on IV cefepime. White cell count is down to 11. His INR currently is at 2.0 and the patient has an underlying atrial fibrillation rhythm with a LBBB pattern. Creatinine is on the rise and is currently up to 3.84 with a BUN of 72. On examination, the cellulitis still present in the left lower extremity although the area and his left lower extremity is less erythematous. In addition, the patient is currently on BiPAP for respiratory support. BiPAP is running at a pressure of 10/5 cm of water with an FiO2 of 40%. He is quite interested the respirator and is able to generate adequate tidal volumes and no signs of any significant respiratory distress. No signs of any CO2 narcosis. 09/11/2020, the patient is improved clinically. There is improvement in his mentation. The patient is much more awake and interactive and is currently off the BiPAP. He is back on oxygen at 5 L per minute nasal cannula. He did utilize the BiPAP throughout the day yesterday as the patient was lethargic and insignificant degree of respiratory distress. At the same time, lines were established, the patient was started on a high dose of dobutamine at 5 mg/kg/m and the patient was also started on Lasix drip at 10 mg an hour. Norepinephrine is also being utilized for hemodynamic support which is currently running at 0.06 mcg/kg per minute. This improved his overall hemodynamics. His urine output gradually picked up and currently is producing urine output in the order of 100 mL an hour. His net fluid balance has been negative. Also, he remains on antibiotics regarding the left lower extremity cellulitis. The area looks improved and it's much less erythematous and red on today's evaluation. The swelling is also improving and his lower extremities bilaterally. His white cell count is currently down to 9 and the patient's renal function continues to improve. His creatinine today is down to 3.1 with a BUN of 17. Rest of the electrodes shows some mild metabolic acidosis with a serum bicarb of 20. The patient's INR today is at 3.2. No bleeding complications. He is quite stable. Tolerating diet. Moving all 4 extremities without any limitation. No altered mentation. His cardiac rhythm remains atrial fibrillation. On 09/12/2020, the patient continues to be rather stable and probably improving. This morning, he is up on a recliner. He is watching television. He is on 8 L of oxygen by nasal cannula. He was on BiPAP overnight at a pressure of 10/5 cm of water. This morning, he was transitioned back to high flow oxygen at 8 L. He remains on dobutamine 5 mcg/kg per minute. He remains on norepinephrine infusion and this was gradually weaned off throughout the day yesterday and was turned off this morning. He is still on Lasix drip at 10 mg an hour. He is in a negative fluid balance of 1 L over the past 24 hours and the patient has shown improvement in his creatinine which is down to 2.5. Urine output is in order of 150 mL an hour. No fever. No chills. Several episodes of the lower extremities have been improving as stated earlier and the patient remains on broad-spectrum antibiotics. No Coumadin was given yesterday and INR today is at 3.1. He remains on cefepime for now. Previously obtain cultures have shown that traumatic strep group G and gram-negative bacillus in the lower extremity wound cultures. His white cell count is down to 8.9. He is tolerating his diet. No other significant events. His cardiac rhythm currently is a chair fibrillation. His weight is also down. Patient was reevaluated today on 09/13/2020, remains in the ICU, remains on Lasix drip at 10 mg per hour is also on the Peter X at 5 mcg/kg/m. IV fluid is at KVO, patient is on 8 L high flow nasal cannula with O2 sat showed 91%, is also intermittently on BiPAP 10/5 at 50% FiO2 especially at bedtime. Patient is being treated for acute systolic congestive heart failure with ejection fraction of 20-25%, and he has clearly anasarca. Chest x-ray continues to show heart nahid lure and cardiomegaly. Patient is on cefepime for lower extremity cellulitis. Since admission, the patient is steadily improving clinically, but clearly not quite ready to be discharged home yet. CBC is relatively normal INR is 2.9. Electrolytes are normal BUN is 60 improving creatinine is 2.0 improving. Chest x-ray continues to show congestive heart failure. Reevaluated today on 09/14/2020, patient remains in the ICU, he is on 8 L high flow nasal cannula with O2 saturation 95%. He was on Lasix at 10 mg per hour and dobutamine at 2.5 mcg/kg/m, however both have been changed that dobutamine is presently on hold, and Lasix was changed to IV Lasix 60 mg IV push every 12 hours. Patient is in A. fib with a rate of 10 7 at night he is on BiPAP 10/5/50%. Patient had a -1.6 L of fluid over the last 24 hours. Continues to be in negative balance over the last few days he is over 9 L negative fluid balance. Renal functioning was noted, creatinine continues to improve down to 1.93 BUN is 57 and I believe this is mostly because of Dobutrex on board. INR remains at 2.7. Patient continues to have central lines in place which I will recommend removing and placement of a midline. Will eventually need possibly a PICC line. CBC is relatively normal. Chest x-ray showed bilateral interstitial infiltrates/edema Reevaluated today on 09/15/2020, patient remains in the ICU, presently on 8 L high flow cannula, at times he goes on BiPAP 10/5/50%, patient had to be placed back on Dobutrex yesterday at 5 mcg/kg/m, mostly because his urine output was extremely poor after Dobutrex was discontinued. Patient stopped basically making urine, he was on Lasix IV push every 12 hours. He is presently in atrial fibrillation with a rate of 124, being addressed by cardiology. Patient is off IV infusion of Lasix. Urine output is picking up since Dobutrex was restarted. Patient is supposed to have a PICC line, but his INR is elevated, and I plan to give him vitamin K and arrange for PICC line possibly on Sunday. We'll try to get his INR down further today it is 2.4. Clinically the patient is feeling better, continues to lose weight continues to diurese, and continues to feel better with less shortness of breath and less swelling in the legs. Renal profile continues to improve his creatinine today is 1.90, it was as high as 3.84 5 days ago. Reevaluated today on 09/16/2020, patient remains in the ICU, his Dobutrex is down to 2.5 mcg/kg/m, remains on Lasix 60 mg IV push every 12 hours. INR today is 1.5, and hopefully we could have a PICC line placed today if not today would be tomorrow. Patient is improving, decent urine output. Denies shortness of breath. He remains on 8 L high flow cannula. His last chest x-ray showed improvement in his interstitial edema. Creatinine is stable at 1.8. Sims catheter remains in place. Patient remains on cefepime Lovenox and Lasix as well as no dobutamine. He is also receiving amiodarone as per cardiology and remains on metoprolol for his atrial fibrillation. Coumadin is presently on hold. He is on Lovenox instead Patient was reevaluated today on 09/17/2020, remains in the ICU, remains on 8 L high flow nasal cannula, O2 saturation is 90%, marginal. Patient remains on dobutamine at 2.5 mcg/kg/m, IV fluid at KVO, urine output seems to be very marginal, patient is developing worsening interstitial edema based on the chest x-ray. His weight seems to be going up, and he is beginning to head into positive fluid balance. Hence I'm recommending Dobutrex to be increased to 5 mcg/kg/m, blood pressure is marginal. And I'm also recommending one dose of Lasix 80 mg IV push 1. Surprisingly Lasix was cut down by cardiology, but it was completely discontinued by nephrology. I am very aware that the web marketing analyst is concerned about his creatinine, but I'm also concerned about his worsening interstitial edema and the fact the patient is on 8 L high flow nasal cannula, and his O2 saturation is marginal. Intermittently on BiPAP. Nonetheless, patient is doing poorly, and seems to be actually worse today compared to the last few days, and I believe the patient will likely benefit from a higher dose of dobutamine. And will benefit from maintaining Lasix however will have to be addressed on a daily basis rather than maintenance dose Objective - Vital Signs Vital signs: Vital Signs Temp 97.8 F 09/17/20 04:00 Pulse 77 09/17/20 11:53 Resp 20 09/17/20 10:00 BP 101/88 09/17/20 10:00 Pulse Ox 89 L 09/17/20 10:00 Intake & Output 09/16/20 09/17/20 09/17/20 18:59 06:59 18:59 Intake Total 406 470 825 Output Total 675 565 180 Balance -269 -95 645 Weight 165.3 kg 165.3 kg Intake: IV 156 120 75 0.9 Normal Saline @ 10mL/ 120 120 hr 0.9 Normal Saline 36 Pressure Bag Sodium Chloride 0.9% 1, 75 000 ml @ 75 mls/hr IV . [id number] [facility] Rx#:[id number] Intake, IV Titration 250 250 Amount DOBUTamine DRIP 500 mg In 250 250 Dextrose/Water 1 250ml. bag @ 5 MCG/KG/MIN 24.345 mls/hr IV .[id number] [facility] Rx#:[id number] Oral 350 500 Output: Urine 675 565 180 Other: Voiding Method Indwelling Catheter Indwelling Catheter Indwelling Catheter ABP, PAP, CO, CI - Last Documented Arterial Blood Pressure 117/77 - Exam Physical Exam: Revealed 64-year-old white male obese On 8 L high flow cannula. Minimal shortness of breath Head: Atraumatic, normocephalic. Dry mucous membranes. HEENT: Short obese neck. [Neck is supple.] [No neck masses.] [No thyromegaly.] [No JVD.EOMI, nonicteric. PERRLA, Chest: Symmetrical chest expansion, bibasilar crackles persists. No rhonchi no wheezes. Cardiac Exam: Distant S1 and S2,, no S3 gallop, no murmur.] Abdomen: [Obese, Soft, nontender, no megaly, no rebound, no guarding, normal bowel sounds.] Extremities: [No clubbing, 1+ bipedal edema, no cyanosis.] Good Pulses bilaterally. Neurological Exam: [No focal neurologic deficit.] Alert oriented 3. Psychiatric: Normal mood affect and normal mental status examination. Skin: Resolving cellulitis of left lower extremity. - Labs CBC & Chem 7: 09/17/20 04:39 09/17/20 04:39 Labs: Abnormal Lab Results - Last 24 Hours (Table) 09/17/20 09/17/2009/17/21 Range/Units 04:39 04:39 04:39 WBC 12.2 H (3.8-10.6) k/uL RBC 4.29 L (4.30-5.90) m/uL Hgb 12.5 L (13.0-17.5) gm/dL RDW 16.7 H (11.5-15.5) % Plt Count 122 L (150-450) k/uL Neutrophils # (Manual) 10.40 H (1.3-7.7) k/uL Lymphocytes # (Manual) 0.73 L (1.0-4.8) k/uL Metamyelocytes # (Man) 0.12 H (0) k/uL Myelocytes # (Manual) 0.12 H (0) k/uL PT 13.1 H (9.0-12.0) sec INR 1.3 H (<1.2) Sodium 135 L (137-145) mmol/L BUN 73 H (9-20) mg/dL Creatinine 2.20 H (0.66-1.25) mg/dL Glucose 107 H (74-99) mg/dL Assessment and Plan Assessment: Impression: Acute hypoxic respiratory failure secondary to acute exacerbation of systolic congestive heart failure. Dobutrex was increased today to 5 mcg/kg/m. Bilateral lower extremity cellulitis, on cefepime. Acute on chronic kidney injury, presently stable as long as patient is on dobutamine. Leukocytosis secondary to cellulitis. Chronic atrial fibrillation with left bundle branch block pattern. Morbid obesity with BMI of 56.5. Benign essential hypertension. Coronary artery disease/ischemic cardiomyopathy Hypothyroidism. Dyslipidemia. obstructive sleep apnea syndrome. On BiPAP. Recommendation: Increased dobutamine to 5 mcg/kg/m. Continue Lasix but address the dose on a daily basis rather than maintenance. We'll give 80 mg IV push today, I am mostly concerned that the patient is beginning to develop positive fluid balance, and may have been 2 congestive hear t failure with pulmonary edema requiring intubation and mechanical ventilation. I believe increasing the dose of Dobutrex will actually help more so than Lasix at this point Continue present supportive care measures. Continue to monitor daily electrolytes and renal profile. Continue BiPAP at night. And as needed. May resume Coumadin since the PICC line was placed, and discontinue Lovenox be Continue amiodarone. And metoprolol. We'll continue to follow. Prognosis remains poor Time with Patient: Less than 30
[2020-09-17] MEDS: allopurinoL 100 MG TAB PO SCH (13:16)
--- NOTE | 2020-09-17 14:21 | P.PN ---
Subjective Progress Note Date: 09/17/20 Patient is a 64-year-old male with a known history of chronic atrial fibrillation on anticoagulation with warfarin, chronic CHF with systolic dysfunction, hypertension, hyperlipidemia, history of my, hypothyroidism, stage III CKD, bilateral lower extremity venous insufficiency/venous stasis and previous history of cellulitis and other medical problems presents to ER with complaints of shortness of breath worsening for the past 2-4 weeks. Patient was also having increased leg swelling. No complaints of chest pain. Patient diagnosed with severe systolic CHF with ejection fraction of 20-25% with resultant acute hypoxic respiratory failure, patient is placed on dobutamine and Lasix drips. Also he needed some mild dose norepinephrine drip for blood pressure support. He is on cefepime for left leg cellulitis. Creatinine is improving 3.8 down to 3.1 today, his acute kidney injury secondary to cardiorenal syndrome He is on Coumadin for A. fib. INR is 3.2 today. Wound culture is growing Streptococcus and gram-negative bacilli today patient feels better with breathing more easily, he is needing 6 L of oxygen via nasal cannula Patient is hemodynamically stable. 09/12/2020 Patient's remains in the ICU, he states that his dyspnea is a slightly better, patient noticed to be tachypneic and he needed 8 liter/min of oxygen today compared to 6 L/m yesterday. He has left leg cellulitis and bilateral leg edema edges improving slightly. Both legs are is wrapped He had to use BiPAP last night for a couple hours. INR is 3.2 and 3.1, creatinine coming down to 2.5. Wound culture is growing Streptococcus and gram-negative bacilli He remains on Lasix drip and dobutamine drip while little bit was discontinued today. He remains on cefepime, warfarin 5 mg given tonight per commercial lawn specialist. He is on Lasix and dobutamine drip and aspirin 81 mg. 09/13/2020 Patient Wanted to hurt in the ICU currently. His diuresing well while he is on Lasix and dobutamine drip. No more need for Levophed drip. However he still short of breath at rest, improved since admission. He is on 8 L/m of oxygen and is on cannula this morning. He has bilateral leg swelling which are improving as well. His INR is 2.9 after he got 5 units of Coumadin last night, creatinine improving down to 2.0 today. He also continued on antibiotics with cefepime, wound culture showing beta- hemolytic streptococcus and gram-negative bacilli, final results still pending 09/14/2020 Patient is remains in the ICU, breathing leg similar to yesterday. Still on 8 L oxygen via nasal cannula. However his creatinine level at 2.0 yesterday and 1.9 today. His dobutamine drip was stopped and laxity dropped switched to IV of 60 mg twice daily. Other than that there is no significant change from yesterday. Both legs are is wrapped He remains on cefepime, warfarin dosing with INR today is 2.7. Also I baby dose of aspirin at 81 mg/h. 09/15/2020 Patient most tachypneic today. Still on 8 L oxygen per minute via nasal cannula. Use BiPAP at night LegS are is wrapped. INR today is 2.4, rest of labs are pending. Patient is still on cefepime for leg cellulitis. Patient still on warfarin, IV Lasix 60 mg twice daily. Patient is having good urine output. We will restrict her fluids. 09/16/2020 Patient in the ICU sitting in chair as usual. This less tachypneic to me however he still have subjective feeling of dyspnea and he is still on 8 L of oxygen per minute. Rest of vitals are stable, his creatinine stable at 1.8, WBC is 11 K, platelet count is 116K. Sims catheter is in place with good urine output Is still on cefepime, Lovenox 80 mg twice daily, IV Lasix twice daily, dobutamine drip. Amiodarone load from 400 down to 200 by commercial lawn specialist. Also he is on midodrine and metoprolol. And aspirin 81 mg. Warfarin was discontinued yesterday and didn't INR was 1.5 after vitamin K. 09/17/2020 Patient seen and evaluated and follow-up continues to be closely monitored in the ICU and is currently in bed awake and alert. Continues to be dyspneic and continues on 8 L of oxygen high flow and is being closely monitored. Patient continues with BiPAP at night and as needed. Patient was given a dose of IV Lasix 80 mg 1 time today with multiple medical consultations following clearing cardiology, pulmonary administrative asst, infectious disease, and nephrology. Patient continues on IV cefepime for lower extremity cellulitis. Hermes wraps were on the patient and removed with continued redness and sloughing of the skin noted along with edema above and below the site of the Hermes wraps. Patient does have lower extremities elevated at this time. Patient continues on dobutamine and has been increased per administrative asst. Continue with midodrine as well. Objective - Vital Signs Vital signs: Vital Signs Temp 97.8 F 09/17/20 04:00 Pulse 100 09/17/20 07:57 Resp 17 09/17/20 07:00 BP 101/71 09/17/20 07:00 Pulse Ox 98 09/17/20 07:00 Intake & Output 09/16/20 09/17/20 09/17/20 18:59 06:59 18:59 Intake Total 406 470 75 Output Total 675 565 115 Balance -269 -95 -40 Weight 165.3 kg Intake: IV 156 120 75 0.9 Normal Saline @ 10mL/ 120 120 hr 0.9 Normal Saline 36 Pressure Bag Sodium Chloride 0.9% 1, 75 000 ml @ 75 mls/hr IV . [id number] RADHA Rx#:[id number] Intake, IV Titration 250 Amount DOBUTamine DRIP 500 mg In 250 Dextrose/Water 1 250ml. bag @ 2.5 MCG/KG/MIN 12. 173 mls/hr IV .[id number] RADHA Rx#:[id number] Oral 350 Output: Urine 675 565 115 Other: Voiding Method Indwelling Catheter Indwelling Catheter ABP, PAP, CO, CI - Last Documented Arterial Blood Pressure 117/77 - Exam GENERAL: The patient is alert and oriented x3, not in any acute distress. Well developed, well nourished. HEENT: Pupils are round and equally reacting to light. EOMI. No scleral icterus. No conjunctival pallor. Normocephalic, atraumatic. No pharyngeal erythema. No thyromegaly. CARDIOVASCULAR: S1 and S2 present. No murmurs, rubs, or gallops. PULMONARY: Diminished breath sounds bilaterally with bilateral basilar crepitation ABDOMEN: Soft, nontender, nondistended, normoactive bowel sounds. No palpable organomegaly. MUSCULOSKELETAL: No joint swelling or deformity. EXTREMITIES: No cyanosis, clubbing, . Bilateral patellar like edema bilateral lower extremity redness and sloughing of the skin noticed an Hermes wraps removed showing continued edema above and below the site of Hermes wraps NEUROLOGICAL: Gross neurological examination did not reveal any focal deficits. Diffusely weak SKIN: No rashes. no petechiae. - Labs CBC & Chem 7: 09/17/20 04:39 09/17/20 04:39 Labs: Abnormal Lab Results - Last 24 Hours (Table) 09/17/20 09/17/20 09/17/20 Range/Units 04:39 04:39 04:39 WBC 12.2 H (3.8-10.6) k/uL RBC 4.29 L (4.30-5.90) m/uL Hgb 12.5 L (13.0-17.5) gm/dL RDW 16.7 H (11.5-15.5) % Plt Count 122 L (150-450) k/uL Neutrophils # (Manual) 10.40 H (1.3-7.7) k/uL Lymphocytes # (Manual) 0.73 L (1.0-4.8) k/uL Metamyelocytes # (Man) 0.12 H (0) k/uL Myelocytes # (Manual) 0.12 H (0) k/uL PT 13.1 H (9.0-12.0) sec INR 1.3 H (<1.2) Sodium 135 L (137-145) mmol/L BUN 73 H (9-20) mg/dL Creatinine 2.20 H (0.66-1.25) mg/dL Glucose 107 H (74-99) mg/dL Assessment and Plan Assessment: Acute hypoxic respiratory failure due to acute CHF. Acute on chronic CHF with systolic dysfunction ejection fraction 2025% as per TTE Bilateral lower extremity swelling with left leg cellulitis. Chronic atrial fibrillation on anticoagulation with warfarin Subtherapeutic Level. Coagulopathy secondary to Coumadin Mildly elevated troponin level likely due to demand ischemia with CHF and also chronic CKD Worsening Acute kidney injury likely due to cardiorenal. Chronic kidney disease stage III Hypertension Hyperlipidemia History of [place] Morbid obesity BMI 47.3 Full code Plan: This is a pleasant 64 years old male who presents with severe CHF, left leg cellulitis and LELAND. Continue with Lasix IV push as warranted per administrative asst, monitor urine output. Monitor electrolytes. Cardiology and pulmonary/critical care team consult as well as nephrology team on the case Continue with fluid restriction and monitor creatinine and urine output Chest x-ray shows marked cardiomegaly with some mild atelectasis at the right lung base and minimal atypical pulmonary edema present. Patient given 1 dose of IV Lasix 80 mg push today. Patient continues on 8 L high flow with intermittent BiPAP and currently placed back on the BiPAP Continue with antibiotic, currently with cefepime Monitor INR while he is on Coumadin. Current INR is 1.3 okay to resume Coumadin Labs and medication were reviewed.. Continue same treatment. Continue with symptomatic treatment. Resume home medication. Monitor lytes and vitals. DVT and GI prophylaxis. Further recommendations as per clinical course of the patient DVT prophylaxis: Currently on Lovenox okay to resume Coumadin GI Prophylaxis: Pepcid Prognosis is poor and guarded
--- NOTE | 2020-09-17 16:40 | PN ---
PROGRESS NOTE DATE OF SERVICE: 09/17/2020 REASON FOR FOLLOWUP: Bilateral lower extremity venostasis ulcer and cellulitis. INTERVAL HISTORY: Patient is currently afebrile. The patient is hemodynamically stable. The patient is currently on the BiPAP and lethargic, unable to provide any history. No vomiting, diarrhea or any other changes reported by nursing staff. PHYSICAL EXAMINATION: Blood pressure is 108/71, pulse of 89, temperature 98. He is 97% on room air. General description is a middle-aged male lying in bed in no distress. Respiratory system: Unlabored breathing with decreased intensity of breath sounds. No wheeze. Heart S1, S2. Regular rate and rhythm. Abdomen: Soft, no tenderness. Lower extremity swelling and redness has much improved. LABS: Hemoglobin is 12.5, white count 12.2, BUN of 73, creatinine is 2.20. DIAGNOSTIC IMPRESSION AND PLAN: Patient with bilateral lower extremity venostasis ulcer with secondary cellulitis. Culture predominantly gram-negative and strep. Patient is covered with cefepime. Overall improvement in the left lower extremity cellulitis. Local care to continue with Aquacel Silver dressing. MMODL / IJN: [id number] /
[2020-09-17] MEDS: TAMSULOSIN 0.4 MG CAP.ER.24H PO SCH (20:37)
[2020-09-18] MEDS: NOREPINEPHRINE 4 MG in SODIUM CHLORIDE 0.9% 250 ML IV SCH ×2 (07:00→13:32)
[2020-09-18] MEDS: LEVOTHYROXINE 88 MCG TAB PO SCH (07:13)
[2020-09-18] MEDS: CEFEPIME 2 GM in SODIUM CHLORIDE 0.9% 100 ML IVPB SCH ×2 (07:13→17:44)
[2020-09-18] MEDS: IPRATROPIUM-ALBUTEROL 3 ML NEB INHALATION SCH ×4 (07:57→19:52)
[2020-09-18 08:23] LABS: Anisocytosis Slight; HCT 31.1 % (39.0-53.0); HGB 10.4 gm/dL (13.0-17.5); MCH 30.4 pg (25.0-35.0); MCHC 33.3 g/dL (31.0-37.0); MCV 91.3 fL (80.0-100.0); Mean Platelet Volume 15.5; Platelet Count 108 k/uL (150-450); RDW 16.4 % (11.5-15.5)
[2020-09-18 08:51] LABS: INR 1.3 (<1.2)
[2020-09-18] MEDS: AMIODARONE 200 MG TAB PO SCH ×2 (09:10→20:18)
[2020-09-18] MEDS: ASPIRIN 81 MG PO SCH (09:10)
[2020-09-18] MEDS: METOPROLOL TARTRATE 50 MG TAB PO SCH ×2 (09:10→20:18)
[2020-09-18] MEDS: FAMOTIDINE 20 MG TAB PO SCH (09:10)
[2020-09-18] MEDS: SODIUM BICARBONATE TAB 650 MG TAB PO SCH ×2 (09:10→20:18)
[2020-09-18] MEDS: ENOXAPARIN 80 MG/0.8 ML SYRINGE SQ SCH ×2 (09:12→20:19)
[2020-09-18 09:42] LABS: Band Neutrophils % 2 %; Eosinophils # (M) 1.05 k/uL (0-0.7); Lymphocytes # (M) 0.75 k/uL (1.0-4.8); Metamyelocytes # (M) 0.15 k/uL (0); Metamyelocytes % 1 %; Monocytes # (M) 0.45 k/uL (0-1.0); Myelocytes # (M) 0.45 k/uL (0); Myelocytes % 3 %; Neutrophils % (M) 80 %; Nucleated Red Blood Cells 0 /100 WBC (0-0); Total Cells Counted 200
[2020-09-18 09:44] LABS: Large Platelets Present
[2020-09-18] MEDS: MIDODRINE 5 MG TAB PO SCH ×3 (10:42→17:44)
--- NOTE | 2020-09-18 12:47 | P.PN ---
Subjective Progress Note Date: 09/18/20 Principal diagnosis: Acute hypoxic respiratory failure secondary to acute exacerbation of systolic congestive heart failure. This is a 64-year-old male patient, morbidly obese with biventricular failure, chronic systolic heart failure, chronic kidney disease, chronic itchy fibri llation and various other medical problems and comorbidities as will be discussed with him. The patient comes in with significant weight gain, volume overload, increased lower extremity edema, 1 in lower extremities more so on the left along with erythema and several episodes of the left lower extremity. The patient also has vesicles that are filled with fluid secondary to her increased subcutaneous emphysema mainly over the right lower flank area, and pressure points. For that reason, the patient was hospitalized. The patient was fine to be hypoxic. He is not known to have any home oxygen. He was placed on oxygen currently is up to 15 L of oxygen by nasal cannula. No history of COPD most of smoking. His chest x-ray was consistent with cardiac regular and pulmonary edema. EKG was consistent with chronic atrial fibrillation with a LBBB pattern. The patient's white cell count was as high as 21.6 . The patient had a proBNP level of 17,004 100. Troponins were 0.053 respectively. Creatinine initially was at 1.7. The patient was initially started on a combination of diuretics and antibiotics. The patient was started on IV cefepime. The culture from the wound is positive for strep. White cell count is improving. Nevertheless, the patient developed some worsening renal function. The patient developed an acute on top of chronic kidney disease. The patient was accordingly started on dobutamine today. The echo showing an ejection fraction of 20-25%. RV severely dilated. LV is also moderately dilated. PA pressure was 42 mmHg. On 09/10/2020, I'm seeing the patient for a follow-up. Overnight, the patient got transferred to the intensive care unit as the patient was having episodes of hypotension and his systolic blood pressure was dropping in the mid 70s. Note that the patient was being treated with a combination of dobutamine and Lasix. I had to bring him to the intensive care unit and the patient was started on levo fed for hemodynamic support. Is currently on levo fed running at 0.04 mcg/kg per minute. Chest x-ray still showing cardiomegaly. Clinically he does have some edema lower extremities bilaterally and also edema on his flanks and hips area. He is also being treated for this unless of the left lower extremity. This morning, he remains on dobutamine at 2.5 Jc respiratory per minute. Remains on norepinephrine infusion at low dose. He is still on Lasix drip running at 10 mg an hour. An arterial line will be established for adequate blood pressure monitoring. He also benefit from the PICC line. He remains on IV cefepime. White cell count is down to 11. His INR currently is at 2.0 and the patient has an underlying atrial fibrillation rhythm with a LBBB pattern. Creatinine is on the rise and is currently up to 3.84 with a BUN of 72. On examination, the cellulitis still present in the left lower extremity although the area and his left lower extremity is less erythematous. In addition, the patient is currently on BiPAP for respiratory support. BiPAP is running at a pressure of 10/5 cm of water with an FiO2 of 40%. He is quite interested the respirator and is able to generate adequate tidal volumes and no signs of any significant respiratory distress. No signs of any CO2 narcosis. 09/11/2020, the patient is improved clinically. There is improvement in his mentation. The patient is much more awake and interactive and is currently off the BiPAP. He is back on oxygen at 5 L per minute nasal cannula. He did utilize the BiPAP throughout the day yesterday as the patient was lethargic and insignificant degree of respiratory distress. At the same time, lines were established, the patient was started on a high dose of dobutamine at 5 mg/kg/m and the patient was also started on Lasix drip at 10 mg an hour. Norepinephrine is also being utilized for hemodynamic support which is currently running at 0.06 mcg/kg per minute. This improved his overall hemodynamics. His urine output gradually picked up and currently is producing urine output in the order of 100 mL an hour. His net fluid balance has been negative. Also, he remains on antibiotics regarding the left lower extremity cellulitis. The area looks improved and it's much less erythematous and red on today's evaluation. The swelling is also improving and his lower extremities bilaterally. His white cell count is currently down to 9 and the patient's renal function continues to improve. His creatinine today is down to 3.1 with a BUN of 17. Rest of the electrodes shows some mild metabolic acidosis with a serum bicarb of 20. The patient's INR today is at 3.2. No bleeding complications. He is quite stable. Tolerating diet. Moving all 4 extremities without any limitation. No altered mentation. His cardiac rhythm remains atrial fibrillation. On 09/12/2020, the patient continues to be rather stable and probably improving. This morning, he is up on a recliner. He is watching television. He is on 8 L of oxygen by nasal cannula. He was on BiPAP overnight at a pressure of 10/5 cm of water. This morning, he was transitioned back to high flow oxygen at 8 L. He remains on dobutamine 5 mcg/kg per minute. He remains on norepinephrine infusion and this was gradually weaned off throughout the day yesterday and was turned off this morning. He is still on Lasix drip at 10 mg an hour. He is in a negative fluid balance of 1 L over the past 24 hours and the patient has shown improvement in his creatinine which is down to 2.5. Urine output is in order of 150 mL an hour. No fever. No chills. Several episodes of the lower extremities have been improving as stated earlier and the patient remains on broad-spectrum antibiotics. No Coumadin was given yesterday and INR today is at 3.1. He remains on cefepime for now. Previously obtain cultures have shown that traumatic strep group G and gram-negative bacillus in the lower extremity wound cultures. His white cell count is down to 8.9. He is tolerating his diet. No other significant events. His cardiac rhythm currently is a chair fibrillation. His weight is also down. Patient was reevaluated today on 09/13/2020, remains in the ICU, remains on Lasix drip at 10 mg per hour is also on the Peter X at 5 mcg/kg/m. IV fluid is at KVO, patient is on 8 L high flow nasal cannula with O2 sat showed 91%, is also intermittently on BiPAP 10/5 at 50% FiO2 especially at bedtime. Patient is being treated for acute systolic congestive heart failure with ejection fraction of 20-25%, and he has clearly anasarca. Chest x-ray continues to show heart nahid lure and cardiomegaly. Patient is on cefepime for lower extremity cellulitis. Since admission, the patient is steadily improving clinically, but clearly not quite ready to be discharged home yet. CBC is relatively normal INR is 2.9. Electrolytes are normal BUN is 60 improving creatinine is 2.0 improving. Chest x-ray continues to show congestive heart failure. Reevaluated today on 09/14/2020, patient remains in the ICU, he is on 8 L high flow nasal cannula with O2 saturation 95%. He was on Lasix at 10 mg per hour and dobutamine at 2.5 mcg/kg/m, however both have been changed that dobutamine is presently on hold, and Lasix was changed to IV Lasix 60 mg IV push every 12 hours. Patient is in A. fib with a rate of 10 7 at night he is on BiPAP 10/5/50%. Patient had a -1.6 L of fluid over the last 24 hours. Continues to be in negative balance over the last few days he is over 9 L negative fluid balance. Renal functioning was noted, creatinine continues to improve down to 1.93 BUN is 57 and I believe this is mostly because of Dobutrex on board. INR remains at 2.7. Patient continues to have central lines in place which I will recommend removing and placement of a midline. Will eventually need possibly a PICC line. CBC is relatively normal. Chest x-ray showed bilateral interstitial infiltrates/edema Reevaluated today on 09/15/2020, patient remains in the ICU, presently on 8 L high flow cannula, at times he goes on BiPAP 10/5/50%, patient had to be placed back on Dobutrex yesterday at 5 mcg/kg/m, mostly because his urine output was extremely poor after Dobutrex was discontinued. Patient stopped basically making urine, he was on Lasix IV push every 12 hours. He is presently in atrial fibrillation with a rate of 124, being addressed by cardiology. Patient is off IV infusion of Lasix. Urine output is picking up since Dobutrex was restarted. Patient is supposed to have a PICC line, but his INR is elevated, and I plan to give him vitamin K and arrange for PICC line possibly on Sunday. We'll try to get his INR down further today it is 2.4. Clinically the patient is feeling better, continues to lose weight continues to diurese, and continues to feel better with less shortness of breath and less swelling in the legs. Renal profile continues to improve his creatinine today is 1.90, it was as high as 3.84 5 days ago. Reevaluated today on 09/16/2020, patient remains in the ICU, his Dobutrex is down to 2.5 mcg/kg/m, remains on Lasix 60 mg IV push every 12 hours. INR today is 1.5, and hopefully we could have a PICC line placed today if not today would be tomorrow. Patient is improving, decent urine output. Denies shortness of breath. He remains on 8 L high flow cannula. His last chest x-ray showed improvement in his interstitial edema. Creatinine is stable at 1.8. Sims catheter remains in place. Patient remains on cefepime Lovenox and Lasix as well as no dobutamine. He is also receiving amiodarone as per cardiology and remains on metoprolol for his atrial fibrillation. Coumadin is presently on hold. He is on Lovenox instead Patient was reevaluated today on 09/17/2020, remains in the ICU, remains on 8 L high flow nasal cannula, O2 saturation is 90%, marginal. Patient remains on dobutamine at 2.5 mcg/kg/m, IV fluid at KVO, urine output seems to be very marginal, patient is developing worsening interstitial edema based on the chest x-ray. His weight seems to be going up, and he is beginning to head into positive fluid balance. Hence I'm recommending Dobutrex to be increased to 5 mcg/kg/m, blood pressure is marginal. And I'm also recommending one dose of Lasix 80 mg IV push 1. Surprisingly Lasix was cut down by cardiology, but it was completely discontinued by nephrology. 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 Intermittently on BiPAP. Nonetheless, patient is doing poorly, and seems to be actually worse today compared to the last few days, and I believe the patient will likely benefit from a higher dose of dobutamine. And will benefit from maintaining Lasix however will have to be addressed on a daily basis rather than maintenance dose Patient was reevaluated today on 09/18/2020, remains in the ICU on 8 L high flow cannula, O2 saturation is marginal in the high 80s and low 90s. Patient is clinically about the same. At night he is on BiPAP 10/5/50%, his diabetes and the mean dose was decreased again by cardiology down to 2.5 mcg/kg/m, and I'm expecting that his urine output will start drifting down again. No Lasix was given today. His urine output has been about 30-40 mL/h while on Dobutrex at 5 mcg/kg/m. 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 Patient is about the same. Remains on antibiotics for his cellulitis. Renal functioning showed creatinine of 2.33. Again no Lasix was given today. INR is 1.3, I plan to place the patient back on Coumadin at his usual dose and stop Lovenox Objective - Vital Signs Vital signs: Vital Signs Temp 96.8 F L 09/18/20 12:00 Pulse 100 09/18/20 12:11 Resp 22 09/18/20 12:00 BP 105/90 09/18/20 12:00 Pulse Ox 89 L 09/18/20 12:00 Intake & Output 09/17/20 09/18/20 09/18/20 18:59 06:59 18:59 Intake Total 1000 610 238.936 Output Total 500 537 195 Balance 500 73 43.936 Weight 165.3 kg 158.2 kg Intake: IV 75 210 60 0.9 Normal Saline @ 10mL/ 110 60 hr Cefepime 2 gm In Sodium 100 Chloride 0.9% 100 ml @ 25 mls/hr IVPB BID@0600, 1800 [facility] Rx#:[id number] Sodium Chloride 0.9% 1, 75 000 ml @ 75 mls/hr IV . [id number] [facility] Rx#:[id number] Intake, IV Titration 250 250 178.936 Amount DOBUTamine DRIP 500 mg In 250 250 178.936 Dextrose/Water 1 250ml. bag @ 5 MCG/KG/MIN 24.345 mls/hr IV .[id number] [facility] Rx#:[id number] Oral 675 150 Output: Urine 500 537 195 Other: Voiding Method Indwelling Catheter Indwelling Catheter Indwelling Catheter ABP, PAP, CO, CI - Last Documented Arterial Blood Pressure 117/77 - Exam Physical Exam: Revealed 64-year-old white male obese On 8 L high flow cannula. Asymptomatic. Head: Atraumatic, normocephalic. Dry mucous membranes. HEENT: Short obese neck. [Neck is supple.] [No neck masses.] [No thyromegaly.] [No JVD.EOMI, nonicteric. PERRLA, Chest: Symmetrical chest expansion, bibasilar crackles persists. No rhonchi no wheezes. Cardiac Exam: Distant S1 and S2,, no S3 gallop, no murmur.] Abdomen: [Obese, Soft, nontender, no megaly, no rebound, no guarding, normal bowel sounds.] Extremities: [No clubbing, trace of bipedal edema, no cyanosis.] Good Pulses bilaterally. Neurological Exam: [No focal neurologic deficit.] Alert oriented 3. Psychiatric: Normal mood affect and normal mental status examination. Skin: Cellulitis of lower extremities persists, right more so than left. - Labs CBC & Chem 7: 09/18/20 05:26 09/18/20 05:26 Labs: Abnormal Lab Results - Last 24 Hours (Table) 09/18/20 09/18/20 09/18/20 Range/Units 05:26 05:26 08:22 WBC 15.0 H (3.8-10.6) k/uL RBC 3.40 L (4.30-5.90) m/uL Hgb 10.4 L (13.0-17.5) gm/dL Hct 31.1 L (39.0-53.0) % RDW 16.4 H (11.5-15.5) % Plt Count 108 L (150-450) k/uL Neutrophils # (Manual) 12.30 H (1.3-7.7) k/uL Lymphocytes # (Manual) 0.75 L (1.0-4.8) k/uL Eosinophils # (Manual) 1.05 H (0-0.7) k/uL Metamyelocytes # (Man) 0.15 H (0) k/uL Myelocytes # (Manual) 0.45 H (0) k/uL PT 13.0 H (9.0-12.0) sec INR 1.3 H (<1.2) Sodium 134 L (137-145) mmol/L BUN 84 H (9-20) mg/dL Creatinine 2.33 H (0.66-1.25) mg/dL Assessment and Plan Assessment: Impression: Acute hypoxic respiratory failure secondary to acute exacerbation of systolic congestive heart failure. Bilateral lower extremity cellulitis, on cefepime. Acute on chronic kidney injury, presently stable as long as patient is on dobutamine. Leukocytosis secondary to cellulitis. Chronic atrial fibrillation with left bundle branch block pattern. Morbid obesity with BMI of 56.5. Benign essential hypertension. Coronary artery disease/ischemic cardiomyopathy Hypothyroidism. Dyslipidemia. obstructive sleep apnea syndrome. On BiPAP. Recommendation: Continue present treatment plan. Continue to hold Lasix today. Continue present supportive care measures. Continue to monitor daily electrolytes and renal profile. Continue BiPAP at night. Restart Coumadin and discontinue Lovenox once therapeutic Continue amiodarone. Continue metoprolol Continue antibiotics as per ID on the case patient is on cefepime We'll continue to follow. Prognosis remains poor Time with Patient: Less than 30
[2020-09-18] MEDS: allopurinoL 100 MG TAB PO SCH (13:33)
[2020-09-18] MEDS ORDERED: MIDODRINE 5 MG TAB PO STA (13:37)
[2020-09-18] MEDS ORDERED: SODIUM CHLORIDE 0.9% 500 ML 500 ML IV ONE (13:37)
--- NOTE | 2020-09-18 13:52 | PN ---
PROGRESS NOTE Acute kidney injury, mostly cardiorenal. Patient had been on dobutamine which was discontinued and apparently his urine output has dropped since the dobutamine was decreased to 2.5 mcg. This morning patient is awake, comfortable. He is not in any acute distress. PHYSICAL EXAMINATION: Blood pressure is 114/104, heart rate 107 per minute, he is afebrile. ( ) Abdomen is soft, morbidly obese. Extremity exam shows significant edema noted. Wrinkling of the skin is noted in the lower extremities. LABS: Show sodium of 134, potassium 5.0, chloride 102, BUN 84 serum creatinine 2.3, hemoglobin of 10.4 g/dL. ASSESSMENT: 1. Acute kidney injury, acute tubular necrosis and cardiorenal, currently oliguric. Dobutamine has been decreased. The patient has recently been diuresed. Diuretics were held yesterday. I will give him a 250-500 cc bolus. 2. Chronic kidney disease stage 3A, baseline creatinine 1.2-1.3 secondary to nephrosclerosis. 3. Acute on chronic systolic congestive heart failure, ejection fraction 20-25%. 4. Metabolic acidosis secondary to acute kidney injury. Maintained on oral sodium bicarb. 5. Volume overload, currently significantly improved. 6. Hypokalemia from diuresis status post replacement. PLAN: Continue with midodrine 500 cc bolus x1. May continue with dobutamine at 2.5 mcg. MMODL / IJN: [id number] /
[2020-09-18] MEDS: TAMSULOSIN 0.4 MG CAP.ER.24H PO SCH (17:44)
[2020-09-18] MEDS ORDERED: WARFARIN 5 MG TAB PO ONE (18:00)
--- NOTE | 2020-09-18 19:40 | PN ---
PROGRESS NOTE DATE OF SERVICE: 09/18/2020. HISTORY: Mr. López is in atrial fib, rate is controlled. He is on dobutamine. I am recommending that we decrease the dobutamine to 2.5 mcg and continue other medications as before. We will speak to Nephrology to see if they have any other suggestions. Maybe renal dose dopamine at 2.5 mics will be helpful. PHYSICAL EXAM: Blood pressure is fair. Urine output is about 30 cc or so per hour. S1-S2 heard normally, irregular rhythm noted. Short systolic murmur noted. Lungs reveal diminished air entry. Abdomen exam is unchanged. MMODL / IJN: [id number] /
--- NOTE | 2020-09-18 20:12 | P.PN ---
Subjective Patient is a 64-year-old male with a known history of chronic atrial fibrillation on anticoagulation with warfarin, chronic CHF with systolic dysfun ction, hypertension, hyperlipidemia, history of my, hypothyroidism, stage III CKD, bilateral lower extremity venous insufficiency/venous stasis and previous history of cellulitis and other medical problems presents to ER with complaints of shortness of breath worsening for the past 2-4 weeks. Patient was also having increased leg swelling. No complaints of chest pain. Patient diagnosed with severe systolic CHF with ejection fraction of 20-25% with resultant acute hypoxic respiratory failure, patient is placed on dobutamine and Lasix drips. Also he needed some mild dose norepinephrine drip for blood pressure support. He is on cefepime for left leg cellulitis. Creatinine is improving 3.8 down to 3.1 today, his acute kidney injury secondary to cardiorenal syndrome He is on Coumadin for A. fib. INR is 3.2 today. Wound culture is growing Streptococcus and gram-negative bacilli today patient feels better with breathing more easily, he is needing 6 L of oxygen via nasal cannula Patient is hemodynamically stable. 09/12/2020 Patient's remains in the ICU, he states that his dyspnea is a slightly better, patient noticed to be tachypneic and he needed 8 liter/min of oxygen today compared to 6 L/m yesterday. He has left leg cellulitis and bilateral leg edema edges improving slightly. B oth legs are is wrapped He had to use BiPAP last night for a couple hours. INR is 3.2 and 3.1, creatinine coming down to 2.5. Wound culture is growing Streptococcus and gram-negative bacilli He remains on Lasix drip and dobutamine drip while little bit was discontinued today. He remains on cefepime, warfarin 5 mg given tonight per credit collection associate. He is on Lasix and dobutamine drip and aspirin 81 mg. 09/13/2020 Patient Wanted to hurt in the ICU currently. His diuresing well while he is on Lasix and dobutamine drip. No more need for Levophed drip. However he still short of breath at rest, improved since admission. He is on 8 L/m of oxygen and is on cannula this morning. He has bilateral leg swelling which are improving as well. His INR is 2.9 after he got 5 units of Coumadin last night, creatinine improving down to 2.0 today. He also continued on antibiotics with cefepime, wound culture showing beta- hemolytic streptococcus and gram-negative bacilli, final results still pending 09/14/2020 Patient is remains in the ICU, breathing leg similar to yesterday. Still on 8 L oxygen via nasal cannula. However his creatinine level at 2.0 yesterday and 1.9 today. His dobutamine drip was stopped and laxity dropped switched to IV of 60 mg twice daily. Other than that there is no significant change from yesterday. Both legs are is wrapped He remains on cefepime, warfarin dosing with INR today is 2.7. Also I baby dose of aspirin at 81 mg/h. 09/15/2020 Patient most tachypneic today. Still on 8 L oxygen per minute via nasal cannula. Use BiPAP at night LegS are is wrapped. INR today is 2.4, rest of labs are pending. Patient is still on cefepime for leg cellulitis. Patient still on warfarin, IV Lasix 60 mg twice daily. Patient is having good urine output. We will restrict her fluids. 09/16/2020 Patient in the ICU sitting in chair as usual. This less tachypneic to me emery inge he still have subjective feeling of dyspnea and he is still on 8 L of oxygen per minute. Rest of vitals are stable, his creatinine stable at 1.8, WBC is 11 K, platelet count is 116K. Sims catheter is in place with good urine output Is still on cefepime, Lovenox 80 mg twice daily, IV Lasix twice daily, dobutamine drip. Amiodarone load from 400 down to 200 by credit collection associate. Also he is on midodrine and metoprolol. And aspirin 81 mg. Warfarin was discontinued yesterday and didn't INR was 1.5 after vitamin K. 09/17/2020 Patient remains in the ICU with no much progress or worsen over the last 2-3 days. He still on 8 L oxygen via nasal cannula. Using BiPAP night reattempts is still on dopamine drip at 2.5 g per KG per minute. Was on Lasix but it was stopped. His blood pressure this morning it dropped to 88/59 and he received 1 bolus of 500 mL as well as medial drain increased to 10 mg 3 times a day. Remains on amiodarone 200 mg and metoprolol 50 mg twice a day with cardiology team on the case. We will monitor his blood pressure, heart rate and oxygenation. Labs show an INR of 1.3, creatinine slightly up to 2.3. WBC is 15 K, platelet is 108 and hemoglobin dropped to 10. We will check occult blood in the stool with a drop in his blood pressure and hemoglobin to check if any GI bleed. Warfarin be started on Lovenox will be stopped once INR is subtherapeutic. Patient remains on cefepime for his leg cellulitis which is improving. He remains on dobutamine drip 2.5 g/kg/m Review of systems CONSTITUTIONAL: No fever, no malaise, no fatigue. HEENT: No recent visual problems or hearing problems. Denied any sore throat. CARDIOVASCULAR: No orthopnea, PND, no palpitations, no syncope. PULMONARY: No chest wall tenderness, no cough, no hemoptysis. GASTROINTESTINAL: No diarrhea, no nausea, no vomiting, no abdominal pain. Normoactive bowel sounds. Active Medications Generic Name Dose Route Start Last Admin Trade Name Freq PRN Reason Stop Dose Admin Albuterol/Ipratropium 3 ml 09/06/20 22:04 09/07/20 08:34 Ipratropium-Albuterol 3 Ml Neb INHALATION 3 ml RT-TID PRN Administration Shortness Of Breath Or Wheezing Albuterol/Ipratropium 3 ml 09/07/20 16:00 09/18/20 19:52 Ipratropium-Albuterol 3 Ml Neb INHALATION 3 ml RT-QID RADHA Administration Allopurinol 100 mg 09/07/20 12:00 09/18/20 13:33 Allopurinol 100 Mg Tab PO 100 mg DAILY@1200 RADHA Administration Amiodarone HCl 200 mg 09/15/20 09:00 09/18/20 09:10 Amiodarone 200 Mg Tab PO 200 mg BID RADHA Administration Aspirin 81 mg 09/07/20 09:45 09/18/20 09:10 Aspirin 81 Mg PO 81 mg DAILY RADHA Administration Enoxaparin Sodium 80 mg 09/15/20 09:00 09/18/20 09:12 Enoxaparin 80 Mg/0.8 Ml Syringe SQ 80 mg Q12HR RADHA Administration Famotidine 20 mg 09/14/20 09:00 09/18/20 09:10 Famotidine 20 Mg Tab PO 20 mg DAILY RADHA Administration Norepinephrine Bitartrate 4 mg 254 mls @ 32.137 mls/hr 09/10/20 00:15 09/18/20 13:32 / Sodium Chloride IV Not Given .[id number] RADHA Protocol 0.05 MCG/KG/MIN Dobutamine HCl/Dextrose 500 mg 250 mls @ 24.345 mls/hr 09/14/20 19:30 09/18/20 07:00 / IV Solution IV 2.5 mcg/kg/min .[id number] RADHA 12.173 mls/hr Infusion 5 MCG/KG/MIN Cefepime HCl 2 gm/ Sodium 100 mls @ 25 mls/hr 09/15/20 18:00 09/18/20 17:44 Chloride IVPB 25 mls/hr BID@0600,1800 RADHA Administration Levothyroxine Sodium 100 mcg 09/08/20 06:30 09/17/20 06:22 Levothyroxine 100 Mcg Tab PO 100 mcg [id number]@0630 RADHA Administration Levothyroxine Sodium 88 mcg 09/07/20 09:45 09/18/20 07:13 Levothyroxine 88 Mcg Tab PO 88 mcg [id number]@0630 RADHA Administration Metoprolol Tartrate 50 mg 09/07/20 09:00 09/18/20 09:10 Metoprolol Tartrate 50 Mg Tab PO 50 mg BID RADHA Administration Midodrine 10 mg 09/18/20 17:30 09/18/20 17:44 Midodrine 5 Mg Tab PO 10 mg AC-TID RADHA Administration Miscellaneous Information 1 each 09/13/20 06:10 Potassium Replacement Protocol 1 Each Misc MISCELLANE DAILY PRN Per Protocol Protocol Miscellaneous Information 0 each 09/18/20 10:12 Warfarin Per Pharmacy MISCELLANE DIRECTED PRN PER PROTOCOL Naloxone HCl 0.2 mg 09/06/20 19:11 Naloxone 0.4 Mg/Ml 1 Ml Vial IV Q2M PRN Opioid Reversal Sodium Bicarbonate 650 mg 09/11/20 09:00 09/18/20 09:10 Sodium Bicarbonate Tab 650 Mg Tab PO 650 mg BID RADHA Administration Sodium Chloride 10 ml 09/16/20 14:11 Sodium Chloride 0.9% Flush 10 Ml Syringe IV Q4HR PRN PICC Line Sodium Chloride 10 ml 09/23/20 09:00 Sodium Chloride 0.9% Flush 10 Ml Syringe IV WEEKLY RADHA Sodium Chloride 20 ml 09/16/20 14:11 Sodium Chloride 0.9% Flush 10 Ml Syringe IV Q4HR PRN PICC Line Tamsulosin HCl 0.4 mg 09/08/20 18:30 09/18/20 17:44 Tamsulosin 0.4 Mg Cap.Er.24h PO 0.4 mg PC-SUPPER RADHA Administration Objective - Vital Signs Vital signs: Vital Signs Temp 98.2 F 09/18/20 16:00 Pulse 88 09/18/20 19:52 Resp 23 09/18/20 19:00 BP 102/84 09/18/20 19:00 Pulse Ox 90 L 09/18/20 19:00 Intake & Output 09/18/20 09/18/20 09/19/20 06:59 18:59 06:59 Intake Total 610 808.936 Output Total 537 385 Balance 73 423.936 Weight 158.2 kg Intake: IV 210 130 0.9 Normal Saline @ 10mL/ 110 130 hr Cefepime 2 gm In Sodium 100 Chloride 0.9% 100 ml @ 25 mls/hr IVPB BID@0600, 1800 [facility] Rx#:[id number] Intake, IV Titration 250 678.936 Amount DOBUTamine DRIP 500 mg In 250 178.936 Dextrose/Water 1 250ml. bag @ 5 MCG/KG/MIN 24.345 mls/hr IV .[id number] [facility] Rx#:[id number] Sodium Chloride 0.9% 500 500 ml 500 ml @ 999 mls/hr IV .Q31M [facility] Rx#:[id number] Oral 150 Output: Urine 537 385 Other: Voiding Method Indwelling Catheter Indwelling Catheter ABP, PAP, CO, CI - Last Documented Arterial Blood Pressure 117/77 - Exam GENERAL: The patient is alert and oriented x3, not in any acute distress. Well developed, well nourished. HEENT: Pupils are round and equally reacting to light. EOMI. No scleral icterus. No conjunctival pallor. Normocephalic, atraumatic. No pharyngeal erythema. No thyromegaly. CARDIOVASCULAR: S1 and S2 present. No murmurs, rubs, or gallops. -PULMONARY: Chest is clear to auscultation, no wheezing or. Bilateral basal crepitation ABDOMEN: Soft, nontender, nondistended, normoactive bowel sounds. No palpable organomegaly. MUSCULOSKELETAL: No joint swelling or deformity. -EXTREMITIES: No cyanosis, clubbing, . Bilateral patellar like edema NEUROLOGICAL: Gross neurological examination did not reveal any focal deficits. SKIN: No rashes. no petechiae. - Labs CBC & Chem 7: 09/18/20 05:26 09/18/20 05:26 Labs: Abnormal Lab Results - Last 24 Hours (Table) 09/18/20 09/18/20 09/18/20 Range/Units 05:26 05:26 08:22 WBC 15.0 H (3.8-10.6) k/uL RBC 3.40 L (4.30-5.90) m/uL Hgb 10.4 L (13.0-17.5) gm/dL Hct 31.1 L (39.0-53.0) % RDW 16.4 H (11.5-15.5) % Plt Count 108 L (150-450) k/uL Neutrophils # (Manual) 12.30 H (1.3-7.7) k/uL Lymphocytes # (Manual) 0.75 L (1.0-4.8) k/uL Eosinophils # (Manual) 1.05 H (0-0.7) k/uL Metamyelocytes # (Man) 0.15 H (0) k/uL Myelocytes # (Manual) 0.45 H (0) k/uL PT 13.0 H (9.0-12.0) sec INR 1.3 H (<1.2) Sodium 134 L (137-145) mmol/L BUN 84 H (9-20) mg/dL Creatinine 2.33 H (0.66-1.25) mg/dL Assessment and Plan Assessment: Acute hypoxic respiratory failure due to acute CHF. Acute on chronic CHF with systolic dysfunction ejection fraction 2025% as per TTE Bilateral lower extremity swelling with left leg cellulitis. Chronic atrial fibrillation on anticoagulation with warfarin Subtherapeutic Level. Coagulopathy secondary to Coumadin Mildly elevated troponin level likely due to demand ischemia with CHF and also complaining CK D Worsening Acute kidney injury likely due to cardiorenal. Chronic kidney disease stage III Hypertension Hyperlipidemia History of [place] Morbid obesity BMI 47.3 Plan: This is a pleasant 64 years old male who presents with severe CHF, left leg cellulitis and LEL[place]. Continue with Lasix IV push, monitor urine output. Monitor electrolytes. Cardiology and pulmonary/critical care team consult as well as nephrology team on the case check occult blood in the stool, monitor hemoglobin Continue with dobutamine drip and fluid restriction and monitor creatinine and urine output. Lasix is stopped. Continue with antibiotic, currently with cefepime Monitor INR while he is on Coumadin. Labs and medication were reviewed.. Continue same treatment. Continue with s ymptomatic treatment. Resume home medication. Monitor lytes and vitals. DVT and GI prophylaxis. Further recommendations as per clinical course of the patient DVT prophylaxis: on Coumadin GI Prophylaxis: Pepcid Prognosis is guarded
--- NOTE | 2020-09-18 23:45 | PN ---
PROGRESS NOTE DATE OF SERVICE: 09/18/2020. REASON FOR FOLLOWUP: Bilateral lower extremity venostasis ulcer and cellulitis. INTERVAL HISTORY: Patient is afebrile. The patient is breathing comfortably, however, requiring a BiPAP. The patient denies having any chest pain or any worsening cough. No abdominal pain. No pain in the lower extremity. PHYSICAL EXAMINATION: Blood pressure 105/51 with a pulse of 90, temperature 97.9. He is 91% on BiPAP. Description, he is a middle-aged male lying in bed in no distress. RESPIRATORY SYSTEM: Unlabored breathing with decreased breath sounds in the base, with no wheeze. HEART: S1, S2. Regular rate and rhythm. ABDOMEN: Soft. No tenderness. LEGS: Legs are currently wrapped up. No obvious drainage on the dressing. LABS: Hemoglobin is 10.4, white count 18446, BUN of 84, creatinine is 2.33. DIAGNOSTIC IMPRESSION AND PLAN: Patient with bilateral lower extremity venostasis ulcer with secondary cellulitis. This patient did have a series of CHF. leg culture positive for Pseudomonas and strep, for the patient has been on cefepime. Local care with Aquacel dressing. White count slightly jumped up and we will monitor closely. MMODL / IJN: [id number] /
[2020-09-19 05:14] LABS: Calcium 8.8 mg/dL (8.4-10.2); Potassium 4.8 mmol/L (3.5-5.1)
[2020-09-19 05:18] LABS: INR 1.3 (<1.2); Prothrombin Time 13.5 sec (9.0-12.0)
[2020-09-19 06:11] LABS: Anisocytosis Slight; Basophils # (A) 0.2 k/uL (0-0.2); Basophils % (A) 1 %; Eosinophils # (A) 0.8 k/uL (0-0.7); Eosinophils % (A) 5 %; Lymphocytes # (A) 0.9 k/uL (1.0-4.8); Lymphocytes % (A) 5 %; MCH 30.1 pg (25.0-35.0); MCHC 31.7 g/dL (31.0-37.0); MCV 94.8 fL (80.0-100.0); Mean Platelet Volume 14.4; Monocytes # (A) 0.7 k/uL (0-1.0); Monocytes % (A) 4 %; Neutrophils # (A) 14.1 k/uL (1.3-7.7); Neutrophils % (A) 84 %; Platelet Count 113 k/uL (150-450); RBC 2.95 m/uL (4.30-5.90); WBC 16.8 k/uL (3.8-10.6)
[2020-09-19 06:16] LABS: HGB 8.9 gm/dL (13.0-17.5)
[2020-09-19] MEDS: CEFEPIME 2 GM in SODIUM CHLORIDE 0.9% 100 ML IVPB SCH ×2 (06:21→17:20)
[2020-09-19] MEDS: LEVOTHYROXINE 88 MCG TAB PO SCH (06:23)
--- NOTE | 2020-09-19 07:24 | XR ---
EXAMINATION TYPE: XR chest 1V DATE OF EXAM: 09/19/2020 HISTORY: Shortness of breath. COMPARISON: 09/17/2020 TECHNIQUE: Single view of the chest is submitted. FINDINGS: Demonstrated are scattered senescent parenchymal change. There is no evidence for focal infiltrate. The heart is stable. Hilar and mediastinal structures are within normal limits. Degenerative changes are seen of the dorsal spine. IMPRESSION: 1. Chronic changes without evidence for acute pulmonary disease.
[2020-09-19] MEDS: NOREPINEPHRINE 4 MG in SODIUM CHLORIDE 0.9% 250 ML IV SCH ×2 (07:34→13:49)
[2020-09-19] MEDS: MIDODRINE 5 MG TAB PO SCH ×3 (07:42→17:20)
[2020-09-19] MEDS: AMIODARONE 200 MG TAB PO SCH ×2 (07:42→20:00)
[2020-09-19] MEDS: SODIUM BICARBONATE TAB 650 MG TAB PO SCH ×2 (07:42→20:04)
[2020-09-19] MEDS: FAMOTIDINE 20 MG TAB PO SCH (07:43)
[2020-09-19] MEDS: ASPIRIN 81 MG PO SCH (07:43)
[2020-09-19] MEDS: ENOXAPARIN 80 MG/0.8 ML SYRINGE SQ SCH ×2 (07:43→20:00)
[2020-09-19] MEDS: DOBUTamine DRIP 500 MG in DEXTROSE/WATER 1 250ML.BAG IV SCH ×3 (07:45→23:50)
[2020-09-19] MEDS: IPRATROPIUM-ALBUTEROL 3 ML NEB INHALATION SCH ×4 (07:52→20:48)
[2020-09-19] MEDS ORDERED: DEXTROSE/WATER 1 250ML.BAG with DOPamine DRIP 800 MG IV SCH (08:15)
[2020-09-19] MEDS ORDERED: SODIUM CHLORIDE 0.9% 1,000 ML IV SCH ×2 (09:00→17:45)
[2020-09-19] MEDS: METOPROLOL TARTRATE 50 MG TAB PO SCH ×3 (11:17→22:39)
--- NOTE | 2020-09-19 11:44 | PN ---
PROGRESS NOTE Mr. López is in atrial fib, rate is controlled. I am recommending a small dose of dopamine at 2.5 mics for renal perfusion. I am also recommending 75 cc/hour of normal saline to hydrate him. We will continue dobutamine at 2.5 mics. The patient has probable nonischemic cardiomyopathy, EF of less than 30% with a picture of probably obesity hypoventilation syndrome. Prognosis remains guarded. EXAMINATION: Physical exam revealed JVD of 1 cm, no carotid bruit. S1, S2 with irregular rhythm and short systolic murmur. Lungs reveal diminished air entry. Abdomen is soft. There is no tenderness. Lower extremities reveal bilateral edema with pigmentation and chronic changes. MMODL / IJN: [id number] /
[2020-09-19] MEDS: allopurinoL 100 MG TAB PO SCH (12:18)
--- NOTE | 2020-09-19 13:02 | PN ---
PROGRESS NOTE Patient is seen for followup for acute kidney injury, mostly cardiorenal. Blood pressure has been on the lower side and urine output had dropped yesterday as dobutamine was decreased. Patient did receive a fluid bolus and there was some improvement in his urine output. Currently he is being started on dopamine, dobutamine remains at 2.5 mcg. Serum creatinine is increased to 2.6 today. PHYSICAL EXAMINATION: On examination today, patient denies any significant complaints. Blood pressure 94/77, heart rate 95 per minute. He is afebrile. Examination of the heart S1, S2. Examination of the lungs, bilateral breath sounds are heard. Abdomen is soft. Morbidly obese. Examination lower extremities chronic skin changes. No significant edema noted. MUCK [employer]ER exam grossly intact. LAB: Show hemoglobin 8.9, sodium 131, potassium 4.8, chloride 97, BUN 87, serum creatinine 2.6. ASSESSMENT: 1. Acute kidney injury, acute tubular necrosis and cardiorenal currently with borderline urine output being started on dopamine. Hopefully with improvement in blood pressure, urine output will improve as well. Patient did give a fluid bolus yesterday. I will hold off on IV hydration if urine output is maintained in order to avoid fluid overload again. 2. Cardiomyopathy, ejection fraction 20-25%. 3. Volume overload, congestive heart failure exacerbation, currently improved. 4. Chronic kidney disease stage 3, baseline creatinine 1.2-1.3 secondary to nephrosclerosis. 5. Metabolic acidosis secondary to acute kidney injury, now improved. 6. Mild hyponatremia secondary to hypotonic fluid mostly with dobutamine. 7. Hypokalemia from diuretics status post replacement. PLAN: Continue with dopamine which was started today. Continue dobutamine and midodrine. Consider repeating echocardiogram as there was a small pericardial effusion noted on previous echocardiogram performed on 09/07/2020. MMODL / IJN: [id number] /
--- NOTE | 2020-09-19 13:10 | P.PN ---
Subjective Progress Note Date: 09/19/20 Principal diagnosis: Acute hypoxic respiratory failure secondary to acute exacerbation of systolic congestive heart failure. This is a 64-year-old male patient, morbidly obese with biventricular failure, chronic systolic heart failure, chronic kidney disease, chronic itchy fibri llation and various other medical problems and comorbidities as will be discussed with him. The patient comes in with significant weight gain, volume overload, increased lower extremity edema, 1 in lower extremities more so on the left along with erythema and several episodes of the left lower extremity. The patient also has vesicles that are filled with fluid secondary to her increased subcutaneous emphysema mainly over the right lower flank area, and pressure points. For that reason, the patient was hospitalized. The patient was fine to be hypoxic. He is not known to have any home oxygen. He was placed on oxygen currently is up to 15 L of oxygen by nasal cannula. No history of COPD most of smoking. His chest x-ray was consistent with cardiac regular and pulmonary edema. EKG was consistent with chronic atrial fibrillation with a LBBB pattern. The patient's white cell count was as high as 21.6 . The patient had a proBNP level of 17,004 100. Troponins were 0.053 respectively. Creatinine initially was at 1.7. The patient was initially started on a combination of diuretics and antibiotics. The patient was started on IV cefepime. The culture from the wound is positive for strep. White cell count is improving. Nevertheless, the patient developed some worsening renal function. The patient developed an acute on top of chronic kidney disease. The patient was accordingly started on dobutamine today. The echo showing an ejection fraction of 20-25%. RV severely dilated. LV is also moderately dilated. PA pressure was 42 mmHg. On 09/10/2020, I'm seeing the patient for a follow-up. Overnight, the patient got transferred to the intensive care unit as the patient was having episodes of hypotension and his systolic blood pressure was dropping in the mid 70s. Note that the patient was being treated with a combination of dobutamine and Lasix. I had to bring him to the intensive care unit and the patient was started on levo fed for hemodynamic support. Is currently on levo fed running at 0.04 mcg/kg per minute. Chest x-ray still showing cardiomegaly. Clinically he does have some edema lower extremities bilaterally and also edema on his flanks and hips area. He is also being treated for this unless of the left lower extremity. This morning, he remains on dobutamine at 2.5 Jc respiratory per minute. Remains on norepinephrine infusion at low dose. He is still on Lasix drip running at 10 mg an hour. An arterial line will be established for adequate blood pressure monitoring. He also benefit from the PICC line. He remains on IV cefepime. White cell count is down to 11. His INR currently is at 2.0 and the patient has an underlying atrial fibrillation rhythm with a LBBB pattern. Creatinine is on the rise and is currently up to 3.84 with a BUN of 72. On examination, the cellulitis still present in the left lower extremity although the area and his left lower extremity is less erythematous. In addition, the patient is currently on BiPAP for respiratory support. BiPAP is running at a pressure of 10/5 cm of water with an FiO2 of 40%. He is quite interested the respirator and is able to generate adequate tidal volumes and no signs of any significant respiratory distress. No signs of any CO2 narcosis. 09/11/2020, the patient is improved clinically. There is improvement in his mentation. The patient is much more awake and interactive and is currently off the BiPAP. He is back on oxygen at 5 L per minute nasal cannula. He did utilize the BiPAP throughout the day yesterday as the patient was lethargic and insignificant degree of respiratory distress. At the same time, lines were established, the patient was started on a high dose of dobutamine at 5 mg/kg/m and the patient was also started on Lasix drip at 10 mg an hour. Norepinephrine is also being utilized for hemodynamic support which is currently running at 0.06 mcg/kg per minute. This improved his overall hemodynamics. His urine output gradually picked up and currently is producing urine output in the order of 100 mL an hour. His net fluid balance has been negative. Also, he remains on antibiotics regarding the left lower extremity cellulitis. The area looks improved and it's much less erythematous and red on today's evaluation. The swelling is also improving and his lower extremities bilaterally. His white cell count is currently down to 9 and the patient's renal function continues to improve. His creatinine today is down to 3.1 with a BUN of 17. Rest of the electrodes shows some mild metabolic acidosis with a serum bicarb of 20. The patient's INR today is at 3.2. No bleeding complications. He is quite stable. Tolerating diet. Moving all 4 extremities without any limitation. No altered mentation. His cardiac rhythm remains atrial fibrillation. On 09/12/2020, the patient continues to be rather stable and probably improving. This morning, he is up on a recliner. He is watching television. He is on 8 L of oxygen by nasal cannula. He was on BiPAP overnight at a pressure of 10/5 cm of water. This morning, he was transitioned back to high flow oxygen at 8 L. He remains on dobutamine 5 mcg/kg per minute. He remains on norepinephrine infusion and this was gradually weaned off throughout the day yesterday and was turned off this morning. He is still on Lasix drip at 10 mg an hour. He is in a negative fluid balance of 1 L over the past 24 hours and the patient has shown improvement in his creatinine which is down to 2.5. Urine output is in order of 150 mL an hour. No fever. No chills. Several episodes of the lower extremities have been improving as stated earlier and the patient remains on broad-spectrum antibiotics. No Coumadin was given yesterday and INR today is at 3.1. He remains on cefepime for now. Previously obtain cultures have shown that traumatic strep group G and gram-negative bacillus in the lower extremity wound cultures. His white cell count is down to 8.9. He is tolerating his diet. No other significant events. His cardiac rhythm currently is a chair fibrillation. His weight is also down. Patient was reevaluated today on 09/13/2020, remains in the ICU, remains on Lasix drip at 10 mg per hour is also on the Peter X at 5 mcg/kg/m. IV fluid is at KVO, patient is on 8 L high flow nasal cannula with O2 sat showed 91%, is also intermittently on BiPAP 10/5 at 50% FiO2 especially at bedtime. Patient is being treated for acute systolic congestive heart failure with ejection fraction of 20-25%, and he has clearly anasarca. Chest x-ray continues to show heart nahid lure and cardiomegaly. Patient is on cefepime for lower extremity cellulitis. Since admission, the patient is steadily improving clinically, but clearly not quite ready to be discharged home yet. CBC is relatively normal INR is 2.9. Electrolytes are normal BUN is 60 improving creatinine is 2.0 improving. Chest x-ray continues to show congestive heart failure. Reevaluated today on 09/14/2020, patient remains in the ICU, he is on 8 L high flow nasal cannula with O2 saturation 95%. He was on Lasix at 10 mg per hour and dobutamine at 2.5 mcg/kg/m, however both have been changed that dobutamine is presently on hold, and Lasix was changed to IV Lasix 60 mg IV push every 12 hours. Patient is in A. fib with a rate of 10 7 at night he is on BiPAP 10/5/50%. Patient had a -1.6 L of fluid over the last 24 hours. Continues to be in negative balance over the last few days he is over 9 L negative fluid balance. Renal functioning was noted, creatinine continues to improve down to 1.93 BUN is 57 and I believe this is mostly because of Dobutrex on board. INR remains at 2.7. Patient continues to have central lines in place which I will recommend removing and placement of a midline. Will eventually need possibly a PICC line. CBC is relatively normal. Chest x-ray showed bilateral interstitial infiltrates/edema Reevaluated today on 09/15/2020, patient remains in the ICU, presently on 8 L high flow cannula, at times he goes on BiPAP 10/5/50%, patient had to be placed back on Dobutrex yesterday at 5 mcg/kg/m, mostly because his urine output was extremely poor after Dobutrex was discontinued. Patient stopped basically making urine, he was on Lasix IV push every 12 hours. He is presently in atrial fibrillation with a rate of 124, being addressed by cardiology. Patient is off IV infusion of Lasix. Urine output is picking up since Dobutrex was restarted. Patient is supposed to have a PICC line, but his INR is elevated, and I plan to give him vitamin K and arrange for PICC line possibly on Sunday. We'll try to get his INR down further today it is 2.4. Clinically the patient is feeling better, continues to lose weight continues to diurese, and continues to feel better with less shortness of breath and less swelling in the legs. Renal profile continues to improve his creatinine today is 1.90, it was as high as 3.84 5 days ago. Reevaluated today on 09/16/2020, patient remains in the ICU, his Dobutrex is down to 2.5 mcg/kg/m, remains on Lasix 60 mg IV push every 12 hours. INR today is 1.5, and hopefully we could have a PICC line placed today if not today would be tomorrow. Patient is improving, decent urine output. Denies shortness of breath. He remains on 8 L high flow cannula. His last chest x-ray showed improvement in his interstitial edema. Creatinine is stable at 1.8. Sims catheter remains in place. Patient remains on cefepime Lovenox and Lasix as well as no dobutamine. He is also receiving amiodarone as per cardiology and remains on metoprolol for his atrial fibrillation. Coumadin is presently on hold. He is on Lovenox instead Patient was reevaluated today on 09/17/2020, remains in the ICU, remains on 8 L high flow nasal cannula, O2 saturation is 90%, marginal. Patient remains on dobutamine at 2.5 mcg/kg/m, IV fluid at KVO, urine output seems to be very marginal, patient is developing worsening interstitial edema based on the chest x-ray. His weight seems to be going up, and he is beginning to head into positive fluid balance. Hence I'm recommending Dobutrex to be increased to 5 mcg/kg/m, blood pressure is marginal. And I'm also recommending one dose of Lasix 80 mg IV push 1. Surprisingly Lasix was cut down by cardiology, but it was completely discontinued by nephrology. I am very aware that the optical designer is concerned about his creatinine, but I'm also concerned about his worsening interstitial edema and the fact the patient is on 8 L high flow nasal cannula, and his O2 saturation is marginal. Intermittently on BiPAP. Nonetheless, patient is doing poorly, and seems to be actually worse today compared to the last few days, and I believe the patient will likely benefit from a higher dose of dobutamine. And will benefit from maintaining Lasix however will have to be addressed on a daily basis rather than maintenance dose Patient was reevaluated today on 09/18/2020, remains in the ICU on 8 L high flow cannula, O2 saturation is marginal in the high 80s and low 90s. Patient is clinically about the same. At night he is on BiPAP 10/5/50%, his diabetes and the mean dose was decreased again by cardiology down to 2.5 mcg/kg/m, and I'm expecting that his urine output will start drifting down again. No Lasix was given today. His urine output has been about 30-40 mL/h while on Dobutrex at 5 mcg/kg/m. Clinically there isn't much of a meter changes records clerk the last 2 days. Patient is about the same. Remains on antibiotics for his cellulitis. Renal functioning showed creatinine of 2.33. Again no Lasix was given today. INR is 1.3, I plan to place the patient back on Coumadin at his usual dose and stop Lovenox Reevaluated today on 09/19/2020, patient remains about the same. Remains on 8 L high flow cannula, remains on dobutamine at 2.5 mcg/kg/m, dopamine was added at 2.5 mcg/kg/m by cardiology today. His urine output remains extremely poor, and 15-30 mL per hour. I don't believe there is much change, patient did best when he was on a higher dose of dobutamine, but it is too early to tell if the dopamine is going to help his urine output. Patient has less swelling in his lower extremities. His last chest x-ray showed evidence of interstitial edema. And again his oxygenation remains marginal at best. WBC count is 16.8 hemoglobin is 8.9. Electrolytes are normal BUN is up to 87 creatinine is up to 2.64, and that is being addressed by nephrology on the case. Objective - Vital Signs Vital signs: Vital Signs Temp 98.9 F 09/19/20 04:00 Pulse 104 H 09/19/20 12:30 Resp 20 09/19/20 12:30 BP 65/34 09/19/20 12:00 Pulse Ox 90 L 09/19/20 12:30 Intake & Output 09/18/20 09/19/20 09/19/20 18:59 06:59 18:59 Intake Total 880.000 900 85 Output Total 385 235 105 Balance 495.000 665 -20 Weight 158.2 kg 158.5 kg Intake: IV 130 110 85 0.9 Normal Saline @ 10mL/ 130 110 60 hr Cefepime 2 gm In Sodium 25 Chloride 0.9% 100 ml @ 25 mls/hr IVPB BID@0600, 1800 [facility] Rx#:[id number] Intake, IV Titration 750.000 Amount DOBUTamine DRIP 500 mg In 250.000 Dextrose/Water 1 250ml. bag @ 5 MCG/KG/MIN 24.345 mls/hr IV .[id number] [facility] Rx#:[id number] Sodium Chloride 0.9% 500 500 ml 500 ml @ 999 mls/hr IV .Q31M ONE Rx#:[id number] Oral 790 Output: Urine 385 235 105 Other: Voiding Method Indwelling Catheter Indwelling Catheter Indwelling Catheter ABP, PAP, CO, CI - Last Documented Arterial Blood Pressure 117/77 - Exam Physical Exam: Revealed 64-year-old white male obese On 8 L high flow cannula. Dyspnea with any activity noted Head: Atraumatic, normocephalic. Dry mucous membranes. HEENT: Short obese neck. [Neck is supple.] [No neck masses.] [No thyromegaly.] [No JVD.EOMI, nonicteric. PERRLA, Chest: Symmetrical chest expansion, bibasilar crackles persists. No rhonchi no wheezes. Cardiac Exam: Distant S1 and S2,, no S3 gallop, no murmur.] Abdomen: [Obese, Soft, nontender, no megaly, no rebound, no guarding, normal bowel sounds.] Extremities: [No clubbing, trace of bipedal edema, no cyanosis.] Good Pulses bilaterally. Neurological Exam: [No focal neurologic deficit.] Alert oriented 3. Psychiatric: Normal mood affect and normal mental status examination. Skin: Lower extremity cellulitis present.. - Labs CBC & Chem 7: 09/19/20 03:51 09/19/20 03:51 Labs: Abnormal Lab Results - Last 24 Hours (Table) 09/19/20 09/19/20 09/19/20 Range/Units 03:51 03:51 03:51 WBC 16.8 H (3.8-10.6) k/uL RBC 2.95 L (4.30-5.90) m/uL Hgb 8.9 L D (13.0-17.5) gm/dL Hct 28.0 L (39.0-53.0) % RDW 17.0 H (11.5-15.5) % Plt Count 113 L (150-450) k/uL Neutrophils # 14.1 H (1.3-7.7) k/uL Lymphocytes # 0.9 L (1.0-4.8) k/uL Eosinophils # 0.8 H (0-0.7) k/uL PT 13.5 H (9.0-12.0) sec INR 1.3 H (<1.2) Sodium 131 L (137-145) mmol/L Chloride 97 L (98-107) mmol/L BUN 87 H (9-20) mg/dL Creatinine 2.64 H (0.66-1.25) mg/dL Assessment and Plan Assessment: Impression: Acute hypoxic respiratory failure secondary to acute exacerbation of systolic congestive heart failure. Bilateral lower extremity cellulitis, on cefepime. Acute on chronic kidney injury, suspect some component of cardiorenal syndrome. Leukocytosis secondary to cellulitis. Chronic atrial fibrillation with left bundle branch block pattern. Morbid obesity with BMI of 56.5. Benign essential hypertension. Coronary artery disease/ischemic cardiomyopathy Hypothyroidism. Dyslipidemia. obstructive sleep apnea syndrome. On BiPAP. Recommendation: Continue present treatment plan. Cardiology evaluated the patient and now they have him on dobutamine at 2.5 and dopamine at 2.5 mcg/kg/m. Continue to hold Lasix today. Keep IV fluid at KVO. Continue present supportive care measures. Continue to monitor daily electrolytes and renal profile. Continue Coumadin and stop Lovenox once therapeutic. BiPAP As needed. Continue amiodarone. Continue metoprolol Continue antibiotics as per ID on the case patient is on cefepime We'll continue to follow. Prognosis remains poor Time with Patient: Less than 30
[2020-09-19] MEDS ORDERED: SODIUM CHLORIDE 0.9% 500 ML 500 ML IV ONE (13:32)
[2020-09-19] MEDS: TAMSULOSIN 0.4 MG CAP.ER.24H PO SCH (17:20)
[2020-09-19] MEDS ORDERED: WARFARIN 7.5 MG TAB PO ONE (18:00)
--- NOTE | 2020-09-19 18:44 | XR ---
EXAMINATION TYPE: XR chest 1V portable DATE OF EXAM: 09/19/2020 COMPARISON: 08/30/2020 HISTORY: Short of breath TECHNIQUE: Single view FINDINGS: Heart is enlarged. There is some infiltrate or atelectasis at the lung bases and more on th e right side. There is no gross heart failure. There are no hilar masses. Mediastinum is normal. Ther e are chest leads. IMPRESSION: There is increasing infiltrate and atelectasis at the lung bases compared to exam this mo rning. No heart failure seen.
[2020-09-19] MEDS: FUROSEMIDE 100 MG in SODIUM CHLORIDE 0.9% 90 ML IV SCH (19:59)
[2020-09-19] MEDS ORDERED: FUROSEMIDE 10 MG/ML 10 ML VIAL IV ONE (20:30)
--- NOTE | 2020-09-19 22:01 | P.PN ---
Subjective Patient is a 64-year-old male with a known history of chronic atrial fibrillation on anticoagulation with warfarin, chronic CHF with systolic dysfun ction, hypertension, hyperlipidemia, history of my, hypothyroidism, stage III CKD, bilateral lower extremity venous insufficiency/venous stasis and previous history of cellulitis and other medical problems presents to ER with complaints of shortness of breath worsening for the past 2-4 weeks. Patient was also having increased leg swelling. No complaints of chest pain. Patient diagnosed with severe systolic CHF with ejection fraction of 20-25% with resultant acute hypoxic respiratory failure, patient is placed on dobutamine and Lasix drips. Also he needed some mild dose norepinephrine drip for blood pressure support. He is on cefepime for left leg cellulitis. Creatinine is improving 3.8 down to 3.1 today, his acute kidney injury secondary to cardiorenal syndrome He is on Coumadin for A. fib. INR is 3.2 today. Wound culture is growing Streptococcus and gram-negative bacilli today patient feels better with breathing more easily, he is needing 6 L of oxygen via nasal cannula Patient is hemodynamically stable. 09/12/2020 Patient's remains in the ICU, he states that his dyspnea is a slightly better, patient noticed to be tachypneic and he needed 8 liter/min of oxygen today compared to 6 L/m yesterday. He has left leg cellulitis and bilateral leg edema edges improving slightly. B oth legs are is wrapped He had to use BiPAP last night for a couple hours. INR is 3.2 and 3.1, creatinine coming down to 2.5. Wound culture is growing Streptococcus and gram-negative bacilli He remains on Lasix drip and dobutamine drip while little bit was discontinued today. He remains on cefepime, warfarin 5 mg given tonight per cut off [employer]. He is on Lasix and dobutamine drip and aspirin 81 mg. 09/13/2020 Patient Wanted to hurt in the ICU currently. His diuresing well while he is on Lasix and dobutamine drip. No more need for Levophed drip. However he still short of breath at rest, improved since admission. He is on 8 L/m of oxygen and is on cannula this morning. He has bilateral leg swelling which are improving as well. His INR is 2.9 after he got 5 units of Coumadin last night, creatinine improving down to 2.0 today. He also continued on antibiotics with cefepime, wound culture showing beta- hemolytic streptococcus and gram-negative bacilli, final results still pending 09/14/2020 Patient is remains in the ICU, breathing leg similar to yesterday. Still on 8 L oxygen via nasal cannula. However his creatinine level at 2.0 yesterday and 1.9 today. His dobutamine drip was stopped and laxity dropped switched to IV of 60 mg twice daily. Other than that there is no significant change from yesterday. Both legs are is wrapped He remains on cefepime, warfarin dosing with INR today is 2.7. Also I baby dose of aspirin at 81 mg/h. 09/15/2020 Patient most tachypneic today. Still on 8 L oxygen per minute via nasal cannula. Use BiPAP at night LegS are is wrapped. INR today is 2.4, rest of labs are pending. Patient is still on cefepime for leg cellulitis. Patient still on warfarin, IV Lasix 60 mg twice daily. Patient is having good urine output. We will restrict her fluids. 09/16/2020 Patient in the ICU sitting in chair as usual. This less tachypneic to me emery inge he still have subjective feeling of dyspnea and he is still on 8 L of oxygen per minute. Rest of vitals are stable, his creatinine stable at 1.8, WBC is 11 K, platelet count is 116K. Sims catheter is in place with good urine output Is still on cefepime, Lovenox 80 mg twice daily, IV Lasix twice daily, dobutamine drip. Amiodarone load from 400 down to 200 by cut off [place] [place]. Also he is on midodrine and metoprolol. And aspirin 81 mg. Warfarin was discontinued yesterday and didn't INR was 1.5 after vitamin K. 09/17/2020 Patient remains in the ICU with no much progress or worsen over the last 2-3 days. He still on 8 L oxygen via nasal cannula. Using BiPAP night reattempts is still on dopamine drip at 2.5 g per KG per minute. Was on Lasix but it was stopped. His blood pressure this morning it dropped to 88/59 and he received 1 bolus of 500 mL as well as medial drain increased to 10 mg 3 times a day. Remains on amiodarone 200 mg and metoprolol 50 mg twice a day with cardiology team on the case. We will monitor his blood pressure, heart rate and oxygenation. Labs show an INR of 1.3, creatinine slightly up to 2.3. WBC is 15 K, platelet is 108 and hemoglobin dropped to 10. We will check occult blood in the stool with a drop in his blood pressure and hemoglobin to check if any GI bleed. Warfarin be started on Lovenox will be stopped once INR is subtherapeutic. Patient remains on cefepime for his leg cellulitis which is improving. He remains on dobutamine drip 2.5 g/kg/m 09/19/2020 Patient remains in the ICU, breathing quietly but he still an 8 L oxygen via nasal cannula. He uses BiPAP at times especially at night. Blood pressure is on the low side 84/52. Hemoglobin Trending down to 14.1, 12.5, 10.4 and today it 0.9. Also patient 90 low blood pressure 84/52, will keep monitor hemoglobin. Patient kept on blood thinner recommended by consultants. We'll keep monitoring her closely for now Also patient has leukocytosis 16.8 following steroids. Platelet 113. INR 1.3 with plan to resume Coumadin and stop Lovenox after PICC line was placed. Creatinine also trending up to 2.6. Sodium is 131. There is increasing infiltrate and atelectasis of the lung base compared to exam this morning on the chest x-ray Patient currently on cefepime for cellulitis. We will check portcalcitonin and C-reactive protein tomorrow and follow-up repeat chest x-ray in the morning as well. Also patient was placed on Lasix drip Nephrology team on the case and they monitor the patient recommended to repeat echocardiogram to rule out pericardial effusion. 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 HEENT: No recent visual problems or hearing problems. Denied any sore throat. CARDIOVASCULAR: No orthopnea, PND, no palpitations, no syncope. PULMONARY: No chest wall tenderness, no cough, no hemoptysis. GASTROINTESTINAL: No diarrhea, no nausea, no vomiting, no abdominal pain. Normoactive bowel sounds. Active Medications Generic Name Dose Route Start Last Admin Trade Name Jackq PRN Reason Stop Dose Admin Albuterol/Ipratropium 3 ml 09/06/20 22:04 09/07/20 08:34 Ipratropium-Albuterol 3 Ml Neb INHALATION 3 ml RT-TID PRN Administration Shortness Of Breath Or Wheezing Albuterol/Ipratropium 3 ml 09/07/20 16:00 09/19/20 20:48 Ipratropium-Albuterol 3 Ml Neb INHALATION 3 ml RT-QID RADHA Administration Allopurinol 100 mg 09/07/20 12:00 09/19/20 12:18 Allopurinol 100 Mg Tab PO 100 mg DAILY@1200 RADHA Administration Amiodarone HCl 200 mg 09/15/20 09:00 09/19/20 20:00 Amiodarone 200 Mg Tab PO 200 mg BID RADHA Administration Aspirin 81 mg 09/07/20 09:45 09/19/20 07:43 Aspirin 81 Mg PO 81 mg DAILY RADHA Administration Enoxaparin Sodium 80 mg 09/15/20 09:00 09/19/20 20:00 Enoxaparin 80 Mg/0.8 Ml Syringe SQ 80 mg Q12HR RADHA Administration Norepinephrine Bitartrate 4 mg 254 mls @ 32.137 mls/hr 09/10/20 00:15 09/19/20 13:49 / Sodium Chloride IV Not Given .[id number] RADHA Protocol 0.05 MCG/KG/MIN Dobutamine HCl/Dextrose 500 mg 250 mls @ 24.345 mls/hr 09/14/20 19:30 09/19/20 19:15 / IV Solution IV 5 mcg/kg/min .[id number] RADHA 24.345 mls/hr Infusion 5 MCG/KG/MIN Cefepime HCl 2 gm/ Sodium 100 mls @ 25 mls/hr 09/15/20 18:00 09/19/20 17:20 Chloride IVPB 25 mls/hr BID@0600,1800 RADHA Administration Furosemide 100 mg/ Sodium 100 mls @ 10 mls/hr 09/19/20 19:15 09/19/20 19:59 Chloride IV 10 mg/hr .Q10H RADHA 10 mls/hr Administration 10 MG/HR Levothyroxine Sodium 100 mcg 09/08/20 06:30 09/17/20 06:22 Levothyroxine 100 Mcg Tab PO 100 mcg [id number]@0630 RADHA Administration Levothyroxine Sodium 88 mcg 09/07/20 09:45 09/19/20 06:23 Levothyroxine 88 Mcg Tab PO 88 mcg [id number]@0630 RADHA Administration Metoprolol Tartrate 50 mg 09/07/20 09:00 09/19/20 21:45 Metoprolol Tartrate 50 Mg Tab PO Not Given BID RADHA Midodrine 10 mg 09/18/20 17:30 09/19/20 17:20 Midodrine 5 Mg Tab PO 10 mg AC-TID RADHA Administration Miscellaneous Information 1 each 09/13/20 06:10 Potassium Replacement Protocol 1 Each Misc MISCELLANE DAILY PRN Per Protocol Protocol Miscellaneous Information 0 each 09/18/20 10:12 Warfarin Per Pharmacy MISCELLANE DIRECTED PRN PER PROTOCOL Naloxone HCl 0.2 mg 09/06/20 19:11 Naloxone 0.4 Mg/Ml 1 Ml Vial IV Q2M PRN Opioid Reversal Pantoprazole Sodium 40 mg 09/19/20 22:00 Pantoprazole 40 Mg/10 Ml Vial IVP BID RADHA Sodium Bicarbonate 650 mg 09/11/20 09:00 09/19/20 20:04 Sodium Bicarbonate Tab 650 Mg Tab PO 650 mg BID RADHA Administration Sodium Chloride 10 ml 09/16/20 14:11 Sodium Chloride 0.9% Flush 10 Ml Syringe IV Q4HR PRN PICC Line Sodium Chloride 10 ml 09/23/20 09:00 Sodium Chloride 0.9% Flush 10 Ml Syringe IV WEEKLY RADHA Sodium Chloride 20 ml 09/16/20 14:11 Sodium Chloride 0.9% Flush 10 Ml Syringe IV Q4HR PRN PICC Line Tamsulosin HCl 0.4 mg 09/08/20 18:30 09/19/20 17:20 Tamsulosin 0.4 Mg Cap.Er.24h PO 0.4 mg PC-SUPPER RADHA Administration Objective - Vital Signs Vital signs: Vital Signs Temp 98.6 F 09/19/20 20:00 Pulse 112 H 09/19/20 21:00 Resp 26 H 09/19/20 21:00 BP 84/52 09/19/20 21:00 Pulse Ox 100 09/19/20 21:00 Intake & Output 09/19/20 09/19/20 09/20/20 06:59 18:59 06:59 Intake Total 900 645 189.99 Output Total 235 231 40 Balance 665 414 149.99 Weight 158.5 kg Intake: IV 110 145 50 0.9 Normal Saline @ 10mL/ 110 120 30 hr Cefepime 2 gm In Sodium 25 Chloride 0.9% 100 ml @ 25 mls/hr IVPB BID@0600, 1800 [facility] Rx#:[id number] Furosemide 100 mg In 20 Sodium Chloride 0.9% 90 ml @ 10 MG/HR 10 mls/hr IV .Q10H [facility] Rx#: [id number] Intake, IV Titration 500 139.99 Amount DOBUTamine DRIP 500 mg In 139.99 Dextrose/Water 1 250ml. bag @ 5 MCG/KG/MIN 24.345 mls/hr IV .[id number] [facility] Rx#:[id number] Sodium Chloride 0.9% 500 500 ml 500 ml @ 999 mls/hr IV .Q31M [facility] Rx#:[id number] Oral 790 Output: Urine 235 231 40 Other: Voiding Method Indwelling Catheter Indwelling Catheter Indwelling Catheter ABP, PAP, CO, CI - Last Documented Arterial Blood Pressure 117/77 - Exam GENERAL: The patient is alert and oriented x3, not in any acute distress. Well developed, well nourished. HEENT: Pupils are round and equally reacting to light. EOMI. No scleral icterus. No conjunctival pallor. Normocephalic, atraumatic. No pharyngeal erythema. No thyromegaly. CARDIOVASCULAR: S1 and S2 present. No murmurs, rubs, or gallops. -PULMONARY: Chest is clear to auscultation, no wheezing or. Bilateral basal crepitation ABDOMEN: Soft, nontender, nondistended, normoactive bowel sounds. No palpable organomegaly. MUSCULOSKELETAL: No joint swelling or deformity. -EXTREMITIES: No cyanosis, clubbing, . Bilateral patellar like edema NEUROLOGICAL: Gross neurological examination did not reveal any focal deficits. SKIN: No rashes. no petechiae. - Labs CBC & Chem 7: 09/19/20 03:51 09/19/20 03:51 Labs: Abnormal Lab Results - Last 24 Hours (Table) 09/19/20 09/19/20 09/19/20 Range/Units 03:51 03:51 03:51 WBC 16.8 H (3.8-10.6) k/uL RBC 2.95 L (4.30-5.90) m/uL Hgb 8.9 L D (13.0-17.5) gm/dL Hct 28.0 L (39.0-53.0) % RDW 17.0 H (11.5-15.5) % Plt Count 113 L (150-450) k/uL Neutrophils # 14.1 H (1.3-7.7) k/uL Lymphocytes # 0.9 L (1.0-4.8) k/uL Eosinophils # 0.8 H (0-0.7) k/uL PT 13.5 H (9.0-12.0) sec INR 1.3 H (<1.2) Sodium 131 L (137-145) mmol/L Chloride 97 L (98-107) mmol/L BUN 87 H (9-20) mg/dL Creatinine 2.64 H (0.66-1.25) mg/dL Assessment and Plan Assessment: Acute hypoxic respiratory failure due to acute CHF. Acute on chronic CHF with systolic dysfunction ejection fraction 2024% as per TTE Bilateral lower extremity swelling with left leg cellulitis. Anemia, possible acute blood loss anemia. We'll do anemia workup Chronic atrial fibrillation on anticoagulation with warfarin, with Lovenox bridging currently Subtherapeutic Level. Coagulopathy secondary to Coumadin Mildly elevated troponin level likely due to demand ischemia with CHF and also complaining CK D Worsening Acute kidney injury likely due to cardiorenal. Chronic kidney disease stage III Hypertension Hyperlipidemia History of [place] Morbid obesity BMI 47.3 Plan: This is a pleasant 64 years old male who presents with severe CHF, left leg cellulitis and LEL[place]. Continue with Lasix IV push, monitor urine output. Monitor electrolytes. Cardiology and pulmonary/critical care team consult as well as nephrology team on the case check occult blood in the stool, monitor hemoglobin. protonix is started . Continue with dobutamine drip and fluid restriction and monitor creatinine and urine output. Lasix is restarted by pulmonary team Continue with antibiotic, currently with cefepime per ID team , check Procalcitonin and crp Monitor INR while he is on Coumadin. Labs and medication were reviewed.. Continue same treatment. Continue with symptomatic treatment. Resume home medication. Monitor lytes and vitals. DVT and GI prophylaxis. Further recommendations as per clinical course of the patient DVT prophylaxis: on Coumadin GI Prophylaxis: Pepcid Prognosis is guarded
[2020-09-19] MEDS ORDERED: ANIDULAFUNGIN 200 MG in SODIUM CHLORIDE 0.9% 200 ML IVPB ONE (22:30)
[2020-09-19] MEDS: PANTOPRAZOLE 40 MG/10 ML VIAL IVP SCH (22:42)
--- NOTE | 2020-09-19 23:04 | PN ---
PROGRESS NOTE DATE OF SERVICE: 09/19/2020 REASON FOR FOLLOWUP: Bilateral lower extremity venostasis ulcer and cellulitis. INTERVAL HISTORY: Patient is afebrile. The patient remains to be on BiPAP. The patient is hemodynamically stable. Denies having any chest pain. Occasional cough. No abdominal pain. Pain to the lower extremity. PHYSICAL EXAMINATION: Blood pressure is 84/52 with a pulse of 112, temperature of 98.6. He is 100% on BiPAP. General description is a middle-aged male lying in bed in no distress. Respiratory system: Unlabored breathing, decreased intensity of breath sounds. No wheeze. Heart S1, S2. Regular rate and rhythm. Abdomen soft. Lower extremities currently wrapped up. No obvious drainage on the dressing. LABS: Hemoglobin 8.1, white count was 16.8, BUN of 87 and creatinine 2.64. DIAGNOSTIC IMPRESSION AND PLAN: Patient with bilateral lower extremity ulcers and cellulitis predominantly gram- negative in this patient overall cellulitis has improved. The patient also seemed to have worsening of his white count which could be more likely related to oropharyngeal candidiasis in this patient with BIPAP dependent, cannot use nystatin swish and swallow and Diflucan could not be used because the patient is on Amiodarone. We will add Eraxis and see response and monitor clinical course closely. MMODL / IJN: [id number] /
[2020-09-19 23:47] LABS: Glucose,Whole Blood 109 mg/dL (75-99)
[2020-09-20] MEDS ORDERED: DEXMEDETOMIDINE/0.9% NACL(PMX) 400 MCG in EMPTY BAG 1 BAG IV SCH (00:11)
[2020-09-20 00:17] LABS: ABG PCO2 32 mmHg (35-45); ABG PH 7.51 (7.35-7.45); ABG PO2 118 mmHg (83-108); Allen Test Performed? Yes
[2020-09-20 00:18] LABS: ABG Base Excess 3.1 mmol/L; ABG HCO3 26 mmol/L (21-25); ABG Oxygen Saturation 99.7 % (94-97); ABG TCO2 27 mmol/L (19-24)
[2020-09-20] MEDS: HALOPERIDOL LACTATE 5 MG/ML 1 ML VIAL IVP PRN (00:20)
[2020-09-20] MEDS: FUROSEMIDE 100 MG in SODIUM CHLORIDE 0.9% 90 ML IV SCH ×3 (04:03→21:46)
[2020-09-20 04:22] LABS: INR 1.5 (<1.2); Prothrombin Time 15.4 sec (9.0-12.0)
[2020-09-20 05:01] LABS: Albumin 2.2 g/dL (3.5-5.0); Anisocytosis Slight; Basophils # (A) 0.1 k/uL (0-0.2); Basophils % (A) 1 %; C Reactive Protein 8.5 mg/dL (<1.0); Calcium 8.4 mg/dL (8.4-10.2); Eosinophils # (A) 0.4 k/uL (0-0.7); Eosinophils % (A) 2 %; HCT 23.2 % (39.0-53.0); HGB 7.5 gm/dL (13.0-17.5); Lymphocytes # (A) 0.7 k/uL (1.0-4.8); Lymphocytes % (A) 3 %; MCH 30.3 pg (25.0-35.0); MCHC 32.5 g/dL (31.0-37.0); MCV 93.3 fL (80.0-100.0); Mean Platelet Volume 13.9; Monocytes # (A) 0.6 k/uL (0-1.0); Monocytes % (A) 3 %; Neutrophils # (A) 19.1 k/uL (1.3-7.7); Neutrophils % (A) 90 %; RBC 2.48 m/uL (4.30-5.90); RDW 17.4 % (11.5-15.5); Total Bilirubin 2.3 mg/dL (0.2-1.3); Total Protein 4.9 g/dL (6.3-8.2); WBC 21.1 k/uL (3.8-10.6)
[2020-09-20 05:16] LABS: Large Platelets Present; Platelet Count 105 k/uL (150-450)
[2020-09-20 05:57] LABS: Potassium 5.1 mmol/L (3.5-5.1)
[2020-09-20] MEDS: CEFEPIME 2 GM in SODIUM CHLORIDE 0.9% 100 ML IVPB SCH (05:58)
[2020-09-20] MEDS: NOREPINEPHRINE 4 MG in SODIUM CHLORIDE 0.9% 250 ML IV SCH ×4 (08:11→21:47)
--- NOTE | 2020-09-20 08:21 | XR ---
EXAMINATION TYPE: XR chest 1V portable DATE OF EXAM: 09/20/2020 Comparison: 09/19/2020 Clinical History: 64-year-old male Respiratory Distress Findings: Heart mildly enlarged. Retrocardiac region is underpenetrated and not well assessed. Mild interstitia l prominence remains. Improving aeration of the right base. Impression: Cardiomegaly. There may be mild pulmonary vascular congestion. Improving aeration at the right base
[2020-09-20] MEDS: METOPROLOL TARTRATE 50 MG TAB PO SCH ×2 (08:47→21:47)
[2020-09-20] MEDS: PANTOPRAZOLE 40 MG/10 ML VIAL IVP SCH ×2 (09:00→21:46)
[2020-09-20] MEDS: DOBUTamine DRIP 500 MG in DEXTROSE/WATER 1 250ML.BAG IV SCH ×3 (09:01→21:43)
[2020-09-20] MEDS: MIDODRINE 5 MG TAB PO SCH ×3 (09:01→18:05)
[2020-09-20] MEDS: SODIUM BICARBONATE TAB 650 MG TAB PO SCH ×2 (09:01→21:47)
[2020-09-20] MEDS: AMIODARONE 200 MG TAB PO SCH ×2 (09:01→21:47)
[2020-09-20] MEDS: ASPIRIN 81 MG PO SCH (09:01)
[2020-09-20] MEDS: LEVOTHYROXINE 100 MCG TAB PO SCH (09:01)
[2020-09-20] MEDS: ENOXAPARIN 80 MG/0.8 ML SYRINGE SQ SCH (09:01)
[2020-09-20] MEDS: ANIDULAFUNGIN 100 MG in SODIUM CHLORIDE 0.9% 100 ML IVPB SCH (09:02)
[2020-09-20] MEDS: IPRATROPIUM-ALBUTEROL 3 ML NEB INHALATION SCH ×4 (09:07→21:11)
[2020-09-20 09:16] LABS: % Iron Saturation 21.12 (15.00-50.00)
[2020-09-20 09:26] LABS: Ferritin 218.8 ng/mL (22.0-322.0)
--- NOTE | 2020-09-20 09:59 | P.PN ---
Subjective Progress Note Date: 09/20/20 Principal diagnosis: Respiratory failure, congestive heart failure. Reevaluated today on 09/14/2020, patient remains in the ICU, he is on 8 L high flow nasal cannula with O2 saturation 95%. He was on Lasix at 10 mg per hour and dobutamine at 2.5 mcg/kg/m, however both have been changed that dobutamine is presently on hold, and Lasix was changed to IV Lasix 60 mg IV push every 12 hours. Patient is in A. fib with a rate of 10 7 at night he is on BiPAP 10/5/50%. Patient had a -1.6 L of fluid over the last 24 hours. Continues to be in negative balance over the last few days he is over 9 L negative fluid balance. Renal functioning was noted, creatinine continues to improve down to 1.93 BUN is 57 and I believe this is mostly because of Dobutrex on board. INR remains at 2.7. Patient continues to have central lines in place which I will recommend removing and placement of a midline. Will eventually need possibly a PICC line. CBC is relatively normal. Chest x-ray showed bilateral interstitial infiltrates/edema Reevaluated today on 09/15/2020, patient remains in the ICU, presently on 8 L high flow cannula, at times he goes on BiPAP 10/5/50%, patient had to be placed back on Dobutrex yesterday at 5 mcg/kg/m, mostly because his urine output was extremely poor after Dobutrex was discontinued. Patient stopped basically making urine, he was on Lasix IV push every 12 hours. He is presently in atrial fibrillation with a rate of 124, being addressed by cardiology. Patient is off IV infusion of Lasix. Urine output is picking up since Dobutrex was restarted. Patient is supposed to have a PICC line, but his INR is elevated, and I plan to give him vitamin K and arrange for PICC line possibly on Sunday. We'll try to get his INR down further today it is 2.4. Clinically the patient is feeling better, continues to lose weight continues to diurese, and continues to feel better with less shortness of breath and less swelling in the legs. Renal profile continues to improve his creatinine today is 1.90, it was as high as 3.84 5 days ago. Reevaluated today on 09/16/2020, patient remains in the ICU, his Dobutrex is down to 2.5 mcg/kg/m, remains on Lasix 60 mg IV push every 12 hours. INR today is 1.5, and hopefully we could have a PICC line placed today if not today would be tomorrow. Patient is improving, decent urine output. Denies shortness of br eath. He remains on 8 L high flow cannula. His last chest x-ray showed improvement in his interstitial edema. Creatinine is stable at 1.8. Sims catheter remains in place. Patient remains on cefepime Lovenox and Lasix as well as no dobutamine. He is also receiving amiodarone as per cardiology and remains on metoprolol for his atrial fibrillation. Coumadin is presently on hold. He is on Lovenox instead Patient was reevaluated today on 09/17/2020, remains in the ICU, remains on 8 L high flow nasal cannula, O2 saturation is 90%, marginal. Patient remains on dobutamine at 2.5 mcg/kg/m, IV fluid at KVO, urine output seems to be very marginal, patient is developing worsening interstitial edema based on the chest x-ray. His weight seems to be going up, and he is beginning to head into p ositive fluid balance. Hence I'm recommending Dobutrex to be increased to 5 mcg/kg/m, blood pressure is marginal. And I'm also recommending one dose of Lasix 80 mg IV push 1. Surprisingly Lasix was cut down by cardiology, but it was completely discontinued by nephrology. I am very aware that the bulk cooler installer is concerned about his creatinine, but I'm also concerned about his worsening interstitial edema and the fact the patient is on 8 L high flow nasal cannula, and his O2 saturation is marginal. Intermittently on BiPAP. Nonetheless, patient is doing poorly, and seems to be actually worse today compared to the last few days, and I believe the patient will likely benefit from a higher dose of dobutamine. And will benefit from maintaining Lasix however will have to be addressed on a daily basis rather than maintenance dose Patient was reevaluated today on 09/18/2020, remains in the ICU on 8 L high flow cannula, O2 saturation is marginal in the high 80s and low 90s. Patient is cl inically about the same. At night he is on BiPAP 10/5/50%, his diabetes and the mean dose was decreased again by cardiology down to 2.5 mcg/kg/m, and I'm expecting that his urine output will start drifting down again. No Lasix was given today. His urine output has been about 30-40 mL/h while on Dobutrex at 5 mcg/kg/m. Clinically there isn't much of a exchange consultant the last 2 days. Patient is about the same. Remains on antibiotics for his cellulitis. Renal functioning showed creatinine of 2.33. Again no Lasix was given today. INR is 1.3, I plan to place the patient back on Coumadin at his usual dose and stop Lovenox Reevaluated today on 09/19/2020, patient remains about the same. Remains on 8 L high flow cannula, remains on dobutamine at 2.5 mcg/kg/m, dopamine was added at 2.5 mcg/kg/m by cardiology today. His urine output remains extremely poor, and 15-30 mL per hour. I don't believe there is much change, patient did best when he was on a higher dose of dobutamine, but it is too early to tell if the dopamine is going to help his urine output. Patient has less swelling in his lower extremities. His last chest x-ray showed evidence of interstitial edema. And again his oxygenation remains marginal at best. WBC count is 16.8 hemoglobin is 8.9. Electrolytes are normal BUN is up to 87 creatinine is up to 2.64, and that is being addressed by nephrology on the case. Progress note dated 09/20/2020. This is a 64-year-old male who was admitted back on September 06 for congestive heart failure, and cardiomyopathy with an ejection fraction of 15-20%. The patient remains on BiPAP, and his pre-much BiPAP dependent. The settings are 10/5 and 40%. Today, we placed him on 8 L nasal cannula so we can have a discussion about CODE STATUS. The patient remains on Lasix drip at 10 mg an hour and dobutamine at 5 mcg/kg/m. He is getting saline at KVO. In addition, he is getting cefepime and Eraxis. We did have a conversation today about CODE STATUS. The patient was lucid and oriented. The patient did not want to be on the ventilator. Hence, we made the patient DO NOT RESUSCITATE. White count 21.1, hemoglobin 7.5, hematocrit 23.2, platelet count is 105,000. PT and INR were 15.4 and 1.5 respectively. Blood gases from yesterday showed a pO2 of 118, pCO2 of 32, and a pH 7.51. Sodium 131, potassium 5.1, chlorides 99, CO2 26, anion gap 6, BUN 97, creatinine 3.22. Chest x-rays consistent with cardiomegaly, and pulmonary vascular congestion. Objective - Vital Signs Vital signs: Vital Signs Temp 98.0 F 09/20/20 04:00 Pulse 98 09/20/20 09:17 Resp 16 09/20/20 07:00 BP 92/69 09/20/20 07:00 Pulse Ox 97 09/20/20 07:00 Intake & Output 09/19/20 09/20/20 09/20/20 18:59 06:59 18:59 Intake Total 645 816.046 273.437 Output Total 231 362 110 Balance 414 454.046 163.437 Weight 167.6 kg Intake: IV 145 455 45 0.9 Normal Saline @ 10mL/ 120 120 10 hr Cefepime 2 gm In Sodium 25 25 25 Chloride 0.9% 100 ml @ 25 mls/hr IVPB BID@0600, 1800 [facility] Rx#:[id number] Eraxis IV 200 Furosemide 100 mg In 110 10 Sodium Chloride 0.9% 90 ml @ 10 MG/HR 10 mls/hr IV .Q10H [facility] Rx#: [id number] Intake, IV Titration 500 361.046 228.437 Amount DOBUTamine DRIP 500 mg In 250.00 228.437 Dextrose/Water 1 250ml. bag @ 5 MCG/KG/MIN 24.345 mls/hr IV .[id number] [facility] Rx#:[id number] Dexmedetomidine/0.9% NaCl 30.379 (Pmx) 400 mcg In Empty Bag 1 bag @ Titrate IV . Q0M [facility] Rx#:[id number] Furosemide 100 mg In 80.667 Sodium Chloride 0.9% 90 ml @ 10 MG/HR 10 mls/hr IV .Q10H [facility] Rx#: [id number] Sodium Chloride 0.9% 500 500 ml 500 ml @ 999 mls/hr IV .Q31M ONE Rx#:[id number] Output: Urine 231 362 110 Other: Voiding Method Indwelling Catheter Indwelling Catheter # Bowel Movements 1 ABP, PAP, CO, CI - Last Documented Arterial Blood Pressure 117/77 - Exam Tachypnea, oriented 3, currently on BiPAP. Taken off the BiPAP, and placed on nasal cannula for discussion about CODE STATUS. HEENT examination is grossly unremarkable. Neck supple. Full range of motion. No adenopathy thyromegaly or neck vein distention. Cardiovascular examination reveals an irregular rhythm. S1-S2 normal. No S3 or S4. No discernible murmur noted. Heart sounds very distant. Heart rate 105 bpm and irregular. Lungs reveal diffuse scattered rhonchi. Bilateral crackles. No wheezes. Breath sounds equal but diminished throughout. Abdomen soft bowel sounds are heard. No masses or tenderness. Extremities reveal diffuse edema. There is also bilateral lower extremity cellulitis, and also some cellulitis to the upper extremities. Skin as above. Neurologic examination is brief but nonfocal. The patient was alert and oriented, and was able to have a cogent discussion about CODE STATUS. - Labs CBC & Chem 7: 09/20/20 04:00 09/20/20 04:00 Labs: Abnormal Lab Results - Last 24 Hours (Table) 09/19/20 09/19/20 09/20/20 Range/Units 23:45 23:48 04:00 WBC (3.8-10.6) k/uL RBC (4.30-5.90) m/uL Hgb (13.0-17.5) gm/dL Hct (39.0-53.0) % RDW (11.5-15.5) % Plt Count (150-450) k/uL Neutrophils # (1.3-7.7) k/uL Lymphocytes # (1.0-4.8) k/uL PT 15.4 H (9.0-12.0) sec INR 1.5 H (<1.2) ABG pH 7.51 H (7.35-7.45) ABG pCO2 32 L (35-45) mmHg ABG pO2 118 H (83-108) mmHg ABG HCO3 26 H (21-25) mmol/L ABG Total CO2 27 H (19-24) mmol/L ABG O2 Saturation 99.7 H (94-97) % Sodium (137-145) mmol/L BUN (9-20) mg/dL Creatinine (0.66-1.25) mg/dL POC Glucose (mg/dL) 109 H (75-99) mg/dL Iron (65-175) ug/dL Total Bilirubin (0.2-1.3) mg/dL C-Reactive Protein (<1.0) mg/dL Total Protein (6.3-8.2) g/dL Albumin (3.5-5.0) g/dL 09/20/20 09/20/20 Range/Units 04:00 04:00 WBC 21.1 H (3.8-10.6) k/uL RBC 2.48 L (4.30-5.90) m/uL Hgb 7.5 L (13.0-17.5) gm/dL Hct 23.2 L (39.0-53.0) % RDW 17.4 H (11.5-15.5) % Plt Count 105 L (150-450) k/uL Neutrophils # 19.1 H (1.3-7.7) k/uL Lymphocytes # 0.7 L (1.0-4.8) k/uL PT (9.0-12.0) sec INR (<1.2) ABG pH (7.35-7.45) ABG pCO2 (35-45) mmHg ABG pO2 (83-108) mmHg ABG HCO3 (21-25) mmol/L ABG Total CO2 (19-24) mmol/L ABG O2 Saturation (94-97) % Sodium 131 L (137-145) mmol/L BUN 97 H (9-20) mg/dL Creatinine 3.22 H (0.66-1.25) mg/dL POC Glucose (mg/dL) (75-99) mg/dL Iron 49 L (65-175) ug/dL Total Bilirubin 2.3 H (0.2-1.3) mg/dL C-Reactive Protein 8.5 H (<1.0) mg/dL Total Protein 4.9 L (6.3-8.2) g/dL Albumin 2.2 L (3.5-5.0) g/dL Assessment and Plan Assessment: Acute hypoxemic respiratory failure, secondary to daily exacerbation of systolic CHF. Bilateral lower extremity cellulitis. Obesity. Acute on chronic kidney injury. Leukocytosis, secondary to cellulitis. Chronic atrial fibrillation with left bundle branch block pattern. Benign essential hypertension. CAD. Ischemic cardiomyopathy. Hypothyroidism. Hyperlipidemia. Obstructive sleep apnea syndrome. Plan: Plan dated 09/20/2020. The patient can go back and forth between BiPAP and nasal cannula. He's currently on Lasix at 10 mg an hour and dobutamine at 5 mcg/kg/m. His blood pressure is borderline low. He remains on cefepime, and an antifungal. We have a discussion today about CODE STATUS. The patient is a DO NOT RESUSCITATE. We will continue to follow the patient and make recommendations where appropriate. Prognosis is very guarded. Time with Patient: Greater than 30
--- NOTE | 2020-09-20 12:23 | P.PN ---
Subjective Progress Note Date: 09/20/20 HISTORY OF PRESENT ILLNESS: This is a 64-year-old male with a past medical history significant for chronic persistent atrial fibrillation on Coumadin, dilated cardiomyopathy, chronic systolic heart failure, hypertension, COPD, hyperlipidemia, and chronic kidney disease. Patient follows in the office with Dr. Goodwin. Patient remains on IV dobutamine and Lasix drip. Patient has been unable to be successfully weaned off of his dobutamine. Creatinine today is 3.22, up from 2.64 yesterday. Chest x-ray today reveals cardiomegaly. There may be mild pulmonary vascular congestion. Improving aeration in the right base. Echocardiogram completed revealed ejection fraction 20-25%, severe global hypokinesis of LV, trace mitral regurgitation, mild tricuspid regurgitation mild pulmonary hypertension and trivial pericardial effusion. Telemetry reveals atrial fibrillation with cont rolled ventricular rates PHYSICAL EXAM: VITAL SIGNS: Reviewed. GENERAL: Well-developed in no acute distress. NECK: Supple. No JVD or thyromegaly LUNGS: Respirations even and unlabored. Lungs diminished bilaterally with scattered rhonchi and bibasilar rales. HEART: Irregular rate and rhythm. S1 and S2 heard. EXTREMITIES: Normal range of motion. No clubbing or cyanosis. Peripheral pulses intact. Bilateral lower extremity edema with chronic skin discoloration and evidence of cellulitis. Right leg with dressing intact. ASSESSMENT: Acute exacerbation of chronic systolic heart failure, EF 20-25% Chronic persistent atrial fibrillation on anticoagulation with Coumadin Cardiomyopathy, unclear if ischemic or nonischemic Hypertension Acute kidney injury Chronic kidney disease Bilateral lower extremity cellulitis Leukocytosis, secondary to above COPD Morbid obesity PLAN: Antibiotics per infectious disease Continue IV lasix Continue IV dobutamine Monitor kidney function Daily weights Accurate I&O Patient has made himself a DNR today He will require cardiac catheterization in the future when he is medically stable due to cardiomyopathy Further recommendations pending patient course Nurse practitioner note has been reviewed by physician. Signing provider agrees with the documented findings, assessment, and plan of care. Objective - Vital Signs Vital signs: Vital Signs Temp 98.0 F 09/20/20 04:00 Pulse 92 09/20/20 11:00 Resp 19 09/20/20 11:00 BP 87/67 09/20/20 11:00 Pulse Ox 95 09/20/20 11:00 Intake & Output 09/19/20 09/20/2021 18:59 06:59 18:59 Intake Total 645 816.046 323.437 Output Total 231 362 635 Balance 414 454.046 -311.563 Weight 167.6 kg Intake: IV 145 455 95 0.9 Normal Saline @ 10mL/ 120 120 10 hr Cefepime 2 gm In Sodium 25 25 75 Chloride 0.9% 100 ml @ 25 mls/hr IVPB BID@0600, 1800 [facility] Rx#:[id number] Eraxis IV 200 Furosemide 100 mg In 110 10 Sodium Chloride 0.9% 90 ml @ 10 MG/HR 10 mls/hr IV .Q10H [facility] Rx#: [id number] Intake, IV Titration 500 361.046 228.437 Amount DOBUTamine DRIP 500 mg In 250.00 228.437 Dextrose/Water 1 250ml. bag @ 5 MCG/KG/MIN 24.345 mls/hr IV .[id number] [facility] Rx#:[id number] Dexmedetomidine/0.9% NaCl 30.379 (Pmx) 400 mcg In Empty Bag 1 bag @ Titrate IV . Q0M [facility] Rx#:[id number] Furosemide 100 mg In 80.667 Sodium Chloride 0.9% 90 ml @ 10 MG/HR 10 mls/hr IV .Q10H [facility] Rx#: [id number] Sodium Chloride 0.9% 500 500 ml 500 ml @ 999 mls/hr IV .Q31M ONE Rx#:[id number] Output: Urine 231 362 635 Other: Voiding Method Indwelling Catheter Indwelling Catheter # Bowel Movements 1 ABP, PAP, CO, CI - Last Documented Arterial Blood Pressure 117/77 - Labs CBC & Chem 7: 09/20/20 04:00 09/20/20 04:00 Labs: Abnormal Lab Results - Last 24 Hours (Table) 09/19/20 09/19/20 09/20/20 Range/Units 23:45 23:48 04:00 WBC (3.8-10.6) k/uL RBC (4.30-5.90) m/uL Hgb (13.0-17.5) gm/dL Hct (39.0-53.0) % RDW (11.5-15.5) % Plt Count (150-450) k/uL Neutrophils # (1.3-7.7) k/uL Lymphocytes # (1.0-4.8) k/uL PT 15.4 H (9.0-12.0) sec INR 1.5 H (<1.2) ABG pH 7.51 H (7.35-7.45) ABG pCO2 32 L (35-45) mmHg ABG pO2 118 H (83-108) mmHg ABG HCO3 26 H (21-25) mmol/L ABG Total CO2 27 H (19-24) mmol/L ABG O2 Saturation 99.7 H (94-97) % Sodium (137-145) mmol/L BUN (9-20) mg/dL Creatinine (0.66-1.25) mg/dL POC Glucose (mg/dL) 109 H (75-99) mg/dL Iron (65-175) ug/dL Total Bilirubin (0.2-1.3) mg/dL C-Reactive Protein (<1.0) mg/dL Total Protein (6.3-8.2) g/dL Albumin (3.5-5.0) g/dL Procalcitonin (0.02-0.09) ng/mL 09/20/20 09/20/20 09/20/20 Range/Units 04:00 04:00 04:00 WBC 21.1 H (3.8-10.6) k/uL RBC 2.48 L (4.30-5.90) m/uL Hgb 7.5 L (13.0-17.5) gm/dL Hct 23.2 L (39.0-53.0) % RDW 17.4 H (11.5-15.5) % Plt Count 105 L (150-450) k/uL Neutrophils # 19.1 H (1.3-7.7) k/uL Lymphocytes # 0.7 L (1.0-4.8) k/uL PT (9.0-12.0) sec INR (<1.2) ABG pH (7.35-7.45) ABG pCO2 (35-45) mmHg ABG pO2 (83-108) mmHg ABG HCO3 (21-25) mmol/L ABG Total CO2 (19-24) mmol/L ABG O2 Saturation (94-97) % Sodium 131 L (137-145) mmol/L BUN 97 H (9-20) mg/dL Creatinine 3.22 H (0.66-1.25) mg/dL POC Glucose (mg/dL) (75-99) mg/dL Iron 49 L (65-175) ug/dL Total Bilirubin 2.3 H (0.2-1.3) mg/dL C-Reactive Protein 8.5 H (<1.0) mg/dL Total Protein 4.9 L (6.3-8.2) g/dL Albumin 2.2 L (3.5-5.0) g/dL Procalcitonin 1.08 H (0.02-0.09) ng/mL
[2020-09-20] MEDS: allopurinoL 100 MG TAB PO SCH (13:56)
--- NOTE | 2020-09-20 17:05 | PN ---
PROGRESS NOTE Patient is seen for followup for acute kidney injury. The patient developed volume overload yesterday and he was started on Lasix drip. However, his urine output remains on the lower side. Dobutamine was increased to 5 mcg. Blood pressure remains low. This morning code status was discussed and patient has decided no code no intubation code status. I also briefly discussed dialysis/renal replacement therapy and at this time he is not sure if he would want to proceed with dialysis if indicated. Shortness of breath is about the same. No significant complaints of chest pain. PHYSICAL EXAMINATION: On examination today, blood pressure 87/55, heart rate 105 per minute. He is afebrile. Examination of the heart S1, S2. Examination of the lungs, bilateral breath sounds are heard. Abdomen is soft, nontender. Examination of lower extremities shows chronic skin changes, chronic edema noted. TERRAZZO LAYER exam grossly intact. LAB: Show hemoglobin 7.5, sodium 131, potassium 5.1, chloride 99, BUN 97, creatinine 3.2. ASSESSMENT: 1. Acute kidney injury, ATN, secondary to hypotension as well as cardiorenal syndrome, initially oliguric, currently nonoliguric with improvement in urine output with the Lasix drip which I will continue for now. The patient is also maintained on dobutamine which will continue. 2. Volume overload, currently improving. 3. Chronic kidney disease stage 3, baseline creatinine 1.2-1.3 mg/dL previously. 4. Cardiomyopathy, ejection fraction 20-25%. 5. Metabolic acidosis secondary to acute kidney injury, now improved. 6. Hypokalemia from diuretics status post replacement. 7. Volume overload, continue with the Lasix drip. PLAN: Continue Lasix drip and dobutamine. Discussed renal replacement therapy briefly. However, patient may not need as his urine output has now improved. We will reassess on a daily basis, but it appears that the patient is not too keen on renal replacement therapy if indicated. MMODL / IJN: [id number] /
[2020-09-20] MEDS ORDERED: DAPTOMYCIN IVPB SCH (17:30)
[2020-09-20] MEDS ORDERED: SODIUM CHLORIDE 0.9% IVPB SCH (17:30)
[2020-09-20] MEDS ORDERED: WARFARIN 5 MG TAB PO ONE (18:00)
[2020-09-20] MEDS: TAMSULOSIN 0.4 MG CAP.ER.24H PO SCH (18:05)
--- NOTE | 2020-09-20 18:05 | PN ---
PROGRESS NOTE DATE OF SERVICE: 09/14/2020. REASON FOR FOLLOWUP: 1. Bilateral lower extremity venostasis ulcer and cellulitis. 2. Elevated white count with the patient are currently afebrile. Patient is breathing comfortably. Denies having any chest pain. No shortness of breath. No abdominal pain, no diarrhea. PHYSICAL EXAMINATION: Blood pressure is 195/61 with a pulse of 90, temperature 98. Description: Is a middle- aged male lying in bed, in no distress. Respiratory system: Unlabored breathing, clear to auscultation anteriorly. Heart: S1, S2. Regular rate and rhythm. Abdomen: ( ) Extremities: No edema of the feet. LABS: Hemoglobin 7.1, white count 1.1, BUN of 97, ( ).22, white count 4.08. RECOMMENDATIONS: Patient with bilateral lower extremity venostasis ulcer with secondary cellulitis with strep and Pseudomonas with the patient on cefepime. The patient now with white count with some possible continue . White count has been trending up. Cultures will be repeated and antibiotic adjusted further if needed. no other obvious focus of infection. MMODL / IJN: [id number] /
[2020-09-21] MEDS: NOREPINEPHRINE 4 MG in SODIUM CHLORIDE 0.9% 250 ML IV SCH ×3 (00:21→22:54)
[2020-09-21 04:20] LABS: INR 1.7 (<1.2); Prothrombin Time 17.1 sec (9.0-12.0)
[2020-09-21 04:21] LABS: Albumin 2.4 g/dL (3.5-5.0); Calcium 8.6 mg/dL (8.4-10.2); Potassium 4.9 mmol/L (3.5-5.1); Total Bilirubin 2.3 mg/dL (0.2-1.3); Total Protein 5.3 g/dL (6.3-8.2)
[2020-09-21 05:12] LABS: Anisocytosis Slight; Basophils # (A) 0.1 k/uL (0-0.2); Basophils % (A) 1 %; Eosinophils # (A) 0.6 k/uL (0-0.7); Eosinophils % (A) 3 %; HCT 23.2 % (39.0-53.0); HGB 7.4 gm/dL (13.0-17.5); Lymphocytes # (A) 0.9 k/uL (1.0-4.8); Lymphocytes % (A) 4 %; MCH 29.8 pg (25.0-35.0); MCHC 31.9 g/dL (31.0-37.0); MCV 93.6 fL (80.0-100.0); Mean Platelet Volume 14.1; Monocytes # (A) 0.6 k/uL (0-1.0); Monocytes % (A) 3 %; Neutrophils # (A) 17.5 k/uL (1.3-7.7); Neutrophils % (A) 88 %; Platelet Count 130 k/uL (150-450); RBC 2.48 m/uL (4.30-5.90); RDW 17.9 % (11.5-15.5); WBC 19.8 k/uL (3.8-10.6)
[2020-09-21] MEDS: FUROSEMIDE 100 MG in SODIUM CHLORIDE 0.9% 90 ML IV SCH ×2 (06:38→17:02)
[2020-09-21] MEDS: MIDODRINE 5 MG TAB PO SCH ×3 (06:39→19:04)
[2020-09-21 06:54] LABS: Large Platelets Present
[2020-09-21] MEDS: LEVOTHYROXINE 88 MCG TAB PO SCH (06:54)
[2020-09-21 06:55] LABS: Polychromasia Present
[2020-09-21 06:57] LABS: Poikilocytosis (M) Present
--- NOTE | 2020-09-21 07:07 | P.PN ---
Subjective Progress Note Date: 09/21/20 Principal diagnosis: Respiratory failure, congestive heart failure. Reevaluated today on 09/14/2020, patient remains in the ICU, he is on 8 L high flow nasal cannula with O2 saturation 95%. He was on Lasix at 10 mg per hour and dobutamine at 2.5 mcg/kg/m, however both have been changed that dobutamine is presently on hold, and Lasix was changed to IV Lasix 60 mg IV push every 12 hours. Patient is in A. fib with a rate of 10 7 at night he is on BiPAP 10/5/50%. Patient had a -1.6 L of fluid over the last 24 hours. Continues to be in negative balance over the last few days he is over 9 L negative fluid balance. Renal functioning was noted, creatinine continues to improve down to 1.93 BUN is 57 and I believe this is mostly because of Dobutrex on board. INR remains at 2.7. Patient continues to have central lines in place which I will recommend removing and placement of a midline. Will eventually need possibly a PICC line. CBC is relatively normal. Chest x-ray showed bilateral interstitial infiltrates/edema Reevaluated today on 09/15/2020, patient remains in the ICU, presently on 8 L high flow cannula, at times he goes on BiPAP 10/5/50%, patient had to be placed back on Dobutrex yesterday at 5 mcg/kg/m, mostly because his urine output was extremely poor after Dobutrex was discontinued. Patient stopped basically making urine, he was on Lasix IV push every 12 hours. He is presently in atrial fibrillation with a rate of 124, being addressed by cardiology. Patient is off IV infusion of Lasix. Urine output is picking up since Dobutrex was restarted. Patient is supposed to have a PICC line, but his INR is elevated, and I plan to give him vitamin K and arrange for PICC line possibly on Sunday. We'll try to get his INR down further today it is 2.4. Clinically the patient is feeling better, continues to lose weight continues to diurese, and continues to feel better with less shortness of breath and less swelling in the legs. Renal profile continues to improve his creatinine today is 1.90, it was as high as 3.84 5 days ago. Reevaluated today on 09/16/2020, patient remains in the ICU, his Dobutrex is down to 2.5 mcg/kg/m, remains on Lasix 60 mg IV push every 12 hours. INR today is 1.5, and hopefully we could have a PICC line placed today if not today would be tomorrow. Patient is improving, decent urine output. Denies shortness of br eath. He remains on 8 L high flow cannula. His last chest x-ray showed improvement in his interstitial edema. Creatinine is stable at 1.8. Sims catheter remains in place. Patient remains on cefepime Lovenox and Lasix as well as no dobutamine. He is also receiving amiodarone as per cardiology and remains on metoprolol for his atrial fibrillation. Coumadin is presently on hold. He is on Lovenox instead Patient was reevaluated today on 09/17/2020, remains in the ICU, remains on 8 L high flow nasal cannula, O2 saturation is 90%, marginal. Patient remains on dobutamine at 2.5 mcg/kg/m, IV fluid at KVO, urine output seems to be very marginal, patient is developing worsening interstitial edema based on the chest x-ray. His weight seems to be going up, and he is beginning to head into p ositive fluid balance. Hence I'm recommending Dobutrex to be increased to 5 mcg/kg/m, blood pressure is marginal. And I'm also recommending one dose of Lasix 80 mg IV push 1. Surprisingly Lasix was cut down by cardiology, but it was completely discontinued by nephrology. I am very aware that the blood bank order control clerk is concerned about his creatinine, but I'm also concerned about his worsening interstitial edema and the fact the patient is on 8 L high flow nasal cannula, and his O2 saturation is marginal. Intermittently on BiPAP. Nonetheless, patient is doing poorly, and seems to be actually worse today compared to the last few days, and I believe the patient will likely benefit from a higher dose of dobutamine. And will benefit from maintaining Lasix however will have to be addressed on a daily basis rather than maintenance dose Patient was reevaluated today on 09/18/2020, remains in the ICU on 8 L high flow cannula, O2 saturation is marginal in the high 80s and low 90s. Patient is cl inically about the same. At night he is on BiPAP 10/5/50%, his diabetes and the mean dose was decreased again by cardiology down to 2.5 mcg/kg/m, and I'm expecting that his urine output will start drifting down again. No Lasix was given today. His urine output has been about 30-40 mL/h while on Dobutrex at 5 mcg/kg/m. Clinically there isn't much of a manager exchange the last 2 days. Patient is about the same. Remains on antibiotics for his cellulitis. Renal functioning showed creatinine of 2.33. Again no Lasix was given today. INR is 1.3, I plan to place the patient back on Coumadin at his usual dose and stop Lovenox Reevaluated today on 09/19/2020, patient remains about the same. Remains on 8 L high flow cannula, remains on dobutamine at 2.5 mcg/kg/m, dopamine was added at 2.5 mcg/kg/m by cardiology today. His urine output remains extremely poor, and 15-30 mL per hour. I don't believe there is much change, patient did best when he was on a higher dose of dobutamine, but it is too early to tell if the dopamine is going to help his urine output. Patient has less swelling in his lower extremities. His last chest x-ray showed evidence of interstitial edema. And again his oxygenation remains marginal at best. WBC count is 16.8 hemoglobin is 8.9. Electrolytes are normal BUN is up to 87 creatinine is up to 2.64, and that is being addressed by nephrology on the case. Progress note dated 09/20/2020. This is a 64-year-old male who was admitted back on September 06 for congestive heart failure, and cardiomyopathy with an ejection fraction of 15-20%. The patient remains on BiPAP, and his pre-much BiPAP dependent. The settings are 10/5 and 40%. Today, we placed him on 8 L nasal cannula so we can have a discussion about CODE STATUS. The patient remains on Lasix drip at 10 mg an hour and dobutamine at 5 mcg/kg/m. He is getting saline at KVO. In addition, he is getting cefepime and Eraxis. We did have a conversation today about CODE STATUS. The patient was lucid and oriented. The patient did not want to be on the ventilator. Hence, we made the patient DO NOT RESUSCITATE. White count 21.1, hemoglobin 7.5, hematocrit 23.2, platelet count is 105,000. PT and INR were 15.4 and 1.5 respectively. Blood gases from yesterday showed a pO2 of 118, pCO2 of 32, and a pH 7.51. Sodium 131, potassium 5.1, chlorides 99, CO2 26, anion gap 6, BUN 97, creatinine 3.22. Chest x-rays consistent with cardiomegaly, and pulmonary vascular congestion. Progress note dated 09/21/2020. This is a 64-year-old male who was admitted back on September 06 for congestive heart failure, and severe cardiomyopathy with an ejection fraction of 15-20%. The patient is pretty much BiPAP dependent. His BiPAP settings are 10/5 with an FiO2 of 40%. The patient remains on saline at 20 mL an hour, dobutamine at 5 mcg/kg/m, Lasix at 10 mg an hour, and norepinephrine at 10 mcg/m. We did have a discussion about CODE STATUS yesterday. The patient chooses to be a DO NOT RESUSCITATE. I also think, we should proceed to palliative care/hospice consultation. The patient's overall prognosis is very poor. White count 19.8, hemoglobin 7.4, hematocrit 23.2, and platelet count of 130,000. PT 17.1 with an INR 1.7. Sodium 132, potassium 4.9, chlorides 100, CO2 25, anion gap 7, BUN 97, with a creatinine of 3.70. Renal function continues to decline in this patient. Cultures from the right leg wound show beta hemolytic strep, group G, and Pseudomonas fluorescens/putida. Chest x-ray from yesterday continues to show cardiomegaly, with changes of CHF. Objective - Vital Signs Vital signs: Vital Signs Temp 97.6 F 09/21/20 04:00 Pulse 110 H 09/21/20 06:00 Resp 24 09/21/20 06:00 BP 102/60 09/21/20 06:00 Pulse Ox 99 09/21/20 06:00 Intake & Output 09/20/20 09/20/20 09/21/20 06:59 18:59 06:59 Intake Total 816.046 743.437 969.346 Output Total 362 1685 952 Balance 454.046 -941.563 17.346 Weight 167.6 kg Intake: IV 455 215 340 0.9 Normal Saline @ 10mL/ 120 90 190 hr Cefepime 2 gm In Sodium 25 75 Chloride 0.9% 100 ml @ 25 mls/hr IVPB BID@0600, 1800 [facility] Rx#:[id number] DAPTOmycin 670 mg In 50 Sodium Chloride 0.9% 50 ml @ 100 mls/hr IVPB Q48H [facility] Rx#:[id number] Eraxis IV 200 Furosemide 100 mg In 110 50 100 Sodium Chloride 0.9% 90 ml @ 10 MG/HR 10 mls/hr IV .Q10H [facility] Rx#: [id number] Intake, IV Titration 361.046 328.437 629.346 Amount DOBUTamine DRIP 500 mg In 250.00 228.437 250 Dextrose/Water 1 250ml. bag @ 5 MCG/KG/MIN 24.345 mls/hr IV .[id number] [facility] Rx#:[id number] Dexmedetomidine/0.9% NaCl 30.379 (Pmx) 400 mcg In Empty Bag 1 bag @ Titrate IV . Q0M [facility] Rx#:[id number] Furosemide 100 mg In 80.667 100 164.667 Sodium Chloride 0.9% 90 ml @ 10 MG/HR 10 mls/hr IV .Q10H [facility] Rx#: [id number] Norepinephrine 4 mg In 214.679 Sodium Chloride 0.9% 250 ml @ 0.05 MCG/KG/MIN 32. 137 mls/hr IV .[id number] [facility] Rx#:[id number] Oral 200 Output: Urine 362 1685 952 Other: Voiding Method Indwelling Catheter Indwelling Catheter Indwelling Catheter # Bowel Movements 1 1 ABP, PAP, CO, CI - Last Documented Arterial Blood Pressure 117/77 - Exam Tachypnea, oriented 3, currently on BiPAP. HEENT examination is grossly unremarkable. Neck supple. Full range of motion. No adenopathy thyromegaly or neck vein distention. Cardiovascular examination reveals an irregular rhythm. S1-S2 normal. No S3 or S4. No discernible murmur noted. Heart sounds very distant. Heart rate 110 bpm and irregular. Lungs reveal diffuse scattered rhonchi. Bilateral crackles. No wheezes. Breath sounds equal but diminished throughout. Abdomen soft bowel sounds are heard. No masses or tenderness. Extremities reveal diffuse edema. There is also bilateral lower extremity cellulitis, and also some cellulitis to the upper extremities. Skin as above. Neurologic examination is brief but nonfocal. The patient was alert and oriented, and was able to have a cogent discussion about CODE STATUS, yesterday. - Labs CBC & Chem 7: 09/21/20 03:25 09/21/20 03:25 Labs: Abnormal Lab Results - Last 24 Hours (Table) 09/20/20 09/20/20 09/21/20 Range/Units 04:00 04:00 03:25 WBC (3.8-10.6) k/uL RBC (4.30-5.90) m/uL Hgb (13.0-17.5) gm/dL Hct (39.0-53.0) % RDW (11.5-15.5) % Plt Count (150-450) k/uL PT 17.1 H (9.0-12.0) sec INR 1.7 H (<1.2) Sodium (137-145) mmol/L BUN (9-20) mg/dL Creatinine (0.66-1.25) mg/dL Glucose (74-99) mg/dL Iron 49 L (65-175) ug/dL Total Bilirubin (0.2-1.3) mg/dL Total Protein (6.3-8.2) g/dL Albumin (3.5-5.0) g/dL Procalcitonin 1.08 H (0.02-0.09) ng/mL 09/21/20 09/21/20 Range/Units 03:25 03:25 WBC 19.8 H (3.8-10.6) k/uL RBC 2.48 L (4.30-5.90) m/uL Hgb 7.4 L (13.0-17.5) gm/dL Hct 23.2 L (39.0-53.0) % RDW 17.9 H (11.5-15.5) % Plt Count 130 L (150-450) k/uL PT (9.0-12.0) sec INR (<1.2) Sodium 132 L (137-145) mmol/L BUN 97 H (9-20) mg/dL Creatinine 3.70 H (0.66-1.25) mg/dL Glucose 104 H (74-99) mg/dL Iron (65-175) ug/dL Total Bilirubin 2.3 H (0.2-1.3) mg/dL Total Protein 5.3 L (6.3-8.2) g/dL Albumin 2.4 L (3.5-5.0) g/dL Procalcitonin (0.02-0.09) ng/mL Microbiology - Last 24 Hours (Table) 09/20/20 04:00 Blood Culture - Preliminary Blood No Growth after 24 hours Assessment and Plan Assessment: Acute hypoxemic respiratory failure, secondary to daily exacerbation of systolic CHF. Bilateral lower extremity cellulitis. Obesity. Acute on chronic kidney injury. Leukocytosis, secondary to cellulitis. Chronic atrial fibrillation with left bundle branch block pattern. Benign essential hypertension. CAD. Ischemic cardiomyopathy. Hypothyroidism. Hyperlipidemia. Obstructive sleep apnea syndrome. Plan: Plan dated 09/20/2020. The patient can go back and forth between BiPAP and nasal cannula. He's currently on Lasix at 10 mg an hour and dobutamine at 5 mcg/kg/m. His blood pressure is borderline low. He remains on cefepime, and an antifungal. We have a discussion today about CODE STATUS. The patient is a DO NOT RESUSCITATE. We will continue to follow the patient and make recommendations where appropriate. Prognosis is very guarded. Plan dated 09/21/2020. Currently, the patient's overall condition continues to decline. He remains on BiPAP 10/5 and 40%. Unfortunately, his kidney function continues to decline as well. He became hypotensive through the night, and norepinephrine was started, is currently running at 10 mcg/m. Patient remains on Lasix 10 mg an hour, and dobutamine 5 g kilogram per minute. Palliative care consultation and/or hospice consultation should be considered in this patient. His overall prognosis remains extremely poor. Additional recommendations and suggestions are forthcoming. We will continue to follow make recommendations where appropriate. Time with Patient: Greater than 30
--- NOTE | 2020-09-21 07:36 | XR ---
EXAMINATION TYPE: XR chest 1V DATE OF EXAM: 09/21/2020 HISTORY: Shortness of breath. COMPARISON: 09/20/2020 TECHNIQUE: Single view of the chest is submitted. FINDINGS: Demonstrated are scattered senescent parenchymal change. There is no evidence for focal infiltrate. The heart is stable. Hilar and mediastinal structures are within normal limits. Degenerative changes are seen of the dorsal spine. IMPRESSION: 1. Chronic changes without evidence for acute pulmonary disease.
[2020-09-21] MEDS: IPRATROPIUM-ALBUTEROL 3 ML NEB INHALATION SCH ×4 (08:03→19:42)
[2020-09-21] MEDS ORDERED: ENOXAPARIN 80 MG/0.8 ML SYRINGE SQ SCH (09:00)
[2020-09-21] MEDS: DOBUTamine DRIP 500 MG in DEXTROSE/WATER 1 250ML.BAG IV SCH ×2 (09:14→19:28)
[2020-09-21] MEDS: ASPIRIN 81 MG PO SCH (09:15)
[2020-09-21] MEDS: AMIODARONE 200 MG TAB PO SCH ×2 (09:15→21:07)
[2020-09-21] MEDS: SODIUM BICARBONATE TAB 650 MG TAB PO SCH ×2 (09:15→21:09)
[2020-09-21] MEDS: PANTOPRAZOLE 40 MG/10 ML VIAL IVP SCH ×2 (09:15→21:08)
[2020-09-21] MEDS: ANIDULAFUNGIN 100 MG in SODIUM CHLORIDE 0.9% 100 ML IVPB SCH (09:36)
--- NOTE | 2020-09-21 09:43 | P.PN ---
Subjective Progress Note Date: 09/21/20 Patient is a 64-year-old male with a known history of chronic atrial fibrillation on anticoagulation with warfarin, chronic CHF with systolic dysfunction, hypertension, hyperlipidemia, history of my, hypothyroidism, stage III CKD, bilateral lower extremity venous insufficiency/venous stasis and previous history of cellulitis and other medical problems presents to ER with complaints of shortness of breath worsening for the past 2-4 weeks. Patient was also having increased leg swelling. No complaints of chest pain. Patient diagnosed with severe systolic CHF with ejection fraction of 20-25% with resultant acute hypoxic respiratory failure, patient is placed on dobutamine and Lasix drips. Also he needed some mild dose norepinephrine drip for blood pressure support. He is on cefepime for left leg cellulitis. Creatinine is improving 3.8 down to 3.1 today, his acute kidney injury secondary to cardiorenal syndrome He is on Coumadin for A. fib. INR is 3.2 today. Wound culture is growing Streptococcus and gram-negative bacilli today patient feels better with breathing more easily, he is needing 6 L of oxygen via nasal cannula Patient is hemodynamically stable. 09/12/2020 Patient's remains in the ICU, he states that his dyspnea is a slightly better, patient noticed to be tachypneic and he needed 8 liter/min of oxygen today compared to 6 L/m yesterday. He has left leg cellulitis and bilateral leg edema edges improving slightly. Both legs are is wrapped He had to use BiPAP last night for a couple hours. INR is 3.2 and 3.1, creatinine coming down to 2.5. Wound culture is growing Streptococcus and gram-negative bacilli He remains on Lasix drip and dobutamine drip while little bit was discontinued today. He remains on cefepime, warfarin 5 mg given tonight per communications lead. He is on Lasix and dobutamine drip and aspirin 81 mg. 09/13/2020 Patient Wanted to hurt in the ICU currently. His diuresing well while he is on Lasix and dobutamine drip. No more need for Levophed drip. However he still short of breath at rest, improved since admission. He is on 8 L/m of oxygen and is on cannula this morning. He has bilateral leg swelling which are improving as well. His INR is 2.9 after he got 5 units of Coumadin last night, creatinine improving down to 2.0 today. He also continued on antibiotics with cefepime, wound culture showing beta- hemolytic streptococcus and gram-negative bacilli, final results still pending 09/14/2020 Patient is remains in the ICU, breathing leg similar to yesterday. Still on 8 L oxygen via nasal cannula. However his creatinine level at 2.0 yesterday and 1.9 today. His dobutamine drip was stopped and laxity dropped switched to IV of 60 mg twice daily. Other than that there is no significant change from yesterday. Both legs are is wrapped He remains on cefepime, warfarin dosing with INR today is 2.7. Also I baby dose of aspirin at 81 mg/h. 09/15/2020 Patient most tachypneic today. Still on 8 L oxygen per minute via nasal cannula. Use BiPAP at night LegS are is wrapped. INR today is 2.4, rest of labs are pending. Patient is still on cefepime for leg cellulitis. Patient still on warfarin, IV Lasix 60 mg twice daily. Patient is having good urine output. We will restrict her fluids. 09/16/2020 Patient in the ICU sitting in chair as usual. This less tachypneic to me however he still have subjective feeling of dyspnea and he is still on 8 L of oxygen per minute. Rest of vitals are stable, his creatinine stable at 1.8, WBC is 11 K, platelet count is 116K. Sims catheter is in place with good urine output Is still on cefepime, Lovenox 80 mg twice daily, IV Lasix twice daily, dobutamine drip. Amiodarone load from 400 down to 200 by communications lead. Also he is on midodrine and metoprolol. And aspirin 81 mg. Warfarin was discontinued yesterday and didn't INR was 1.5 after vitamin K. 09/17/2020 Patient seen and evaluated and follow-up continues to be closely monitored in the ICU and is currently in bed awake and alert. Continues to be dyspneic and continues on 8 L of oxygen high flow and is being closely monitored. Patient continues with BiPAP at night and as needed. Patient was given a dose of IV Lasix 80 mg 1 time today with multiple medical consultations following clearing cardiology, pulmonary asbestos shingle inspector, infectious disease, and nephrology. Patient continues on IV cefepime for lower extremity cellulitis. Hermes wraps were on the patient and removed with continued redness and sloughing of the skin noted along with edema above and below the site of the Hermes wraps. Patient does have lower extremities elevated at this time. Patient continues on dobutamine and has been increased per asbestos shingle inspector. Continue with midodrine as well. 09/19/2020 Patient remains in the ICU, breathing quietly but he still an 8 L oxygen via nasal cannula. He uses BiPAP at times especially at night. Blood pressure is on the low side 84/52. Hemoglobin Trending down to 14.1, 12.5, 10.4 and today it 0.9. Also patient 90 low blood pressure 84/52, will keep monitor hemoglobin. Patient kept on blood thinner recommended by consultants. We'll keep monitoring her closely for now Also patient has leukocytosis 16.8 following steroids. Platelet 113. INR 1.3 with plan to resume Coumadin and stop Lovenox after PICC line was p laced. Creatinine also trending up to 2.6. Sodium is 131. There is increasing infiltrate and atelectasis of the lung base compared to exam this morning on the chest x-ray Patient currently on cefepime for cellulitis. We will check portcalcitonin and C-reactive protein tomorrow and follow-up repeat chest x-ray in the morning as well. Also patient was placed on Lasix drip Nephrology team on the case and they monitor the patient recommended to repeat echocardiogram to rule out pericardial effusion. Patient remains on dobutamine and medial drain Lockstitcher following the patient closely as well 09/20/2020 Patient is seen in follow-up continues to be in the ICU being closely monitored. Patient continues on dobutamine along with IV Lasix drip and being closely monitored. Patient is currently on 8 L high flow nasal cannula and continuing to be dyspneic and is currently being placed on BiPAP. Blood pressure continues to be on the lower side. Patient also continues on IV antibiotics in the form of cefepime and lower extremities are reddened although slightly improved. Dressing currently wrapping the lower extremities and continue with local wound care. White blood count today is 21.1, hemoglobin is 7.5, sodium is 131 with a potassium of 5.1 and current creatinine is 3.22 with nephrology following closely. Repeat BMP is 10,700 and Procol troponin is elevated at 1.08. Sid isol level is 31. Review of systems CONSTITUTIONAL: No fever, no malaise, no fatigue. HEENT: No recent visual problems or hearing problems. Denied any sore throat. CARDIOVASCULAR: No orthopnea, PND, no palpitations, no syncope. PULMONARY: No chest wall tenderness, no cough, no hemoptysis. GASTROINTESTINAL: No diarrhea, no nausea, no vomiting, no abdominal pain. Normoactive bowel sounds. Objective - Vital Signs Vital signs: Vital Signs Temp 98.0 F 09/20/20 04:00 Pulse 98 09/20/20 12:54 Resp 21 09/20/20 12:00 BP 81/50 09/20/20 12:00 Pulse Ox 96 09/20/20 12:00 Intake & Output 09/19/20 09/20/20 09/20/20 18:59 06:59 18:59 Intake Total 645 816.046 403.437 Output Total 231 362 810 Balance 414 454.046 -406.563 Weight 167.6 kg Intake: IV 145 455 175 0.9 Normal Saline @ 10mL/ 120 120 50 hr Cefepime 2 gm In Sodium 25 25 75 Chloride 0.9% 100 ml @ 25 mls/hr IVPB BID@0600, 1800 [facility] Rx#:[id number] Eraxis IV 200 Furosemide 100 mg In 110 50 Sodium Chloride 0.9% 90 ml @ 10 MG/HR 10 mls/hr IV .Q10H [facility] Rx#: [id number] Intake, IV Titration 500 361.046 228.437 Amount DOBUTamine DRIP 500 mg In 250.00 228.437 Dextrose/Water 1 250ml. bag @ 5 MCG/KG/MIN 24.345 mls/hr IV .[id number] [facility] Rx#:[id number] Dexmedetomidine/0.9% NaCl 30.379 (Pmx) 400 mcg In Empty Bag 1 bag @ Titrate IV . Q0M [facility] Rx#:[id number] Furosemide 100 mg In 80.667 Sodium Chloride 0.9% 90 ml @ 10 MG/HR 10 mls/hr IV .Q10H [facility] Rx#: [id number] Sodium Chloride 0.9% 500 500 ml 500 ml @ 999 mls/hr IV .Q31M [facility] Rx#:[id number] Output: Urine 231 362 810 Other: Voiding Method Indwelling Catheter Indwelling Catheter Indwelling Catheter # Bowel Movements 1 ABP, PAP, CO, CI - Last Documented Arterial Blood Pressure 117/77 - Exam GENERAL: The patient is alert and oriented x3, not in any acute distress. Well developed, well nourished. HEENT: Pupils are round and equally reacting to light. EOMI. No scleral icterus. No conjunctival pallor. Normocephalic, atraumatic. No pharyngeal erythema. No thyromegaly. CARDIOVASCULAR: S1 and S2 present. No murmurs, rubs, or gallops. PULMONARY: Diminished breath sounds bilaterally with bilateral basilar cre pitation ABDOMEN: Soft, nontender, nondistended, normoactive bowel sounds. No palpable organomegaly. MUSCULOSKELETAL: No joint swelling or deformity. EXTREMITIES: No cyanosis, clubbing, . Bilateral patellar like edema bilateral lower extremity redness and sloughing of the skin noticed showing continued edema although slightly improved NEUROLOGICAL: Gross neurological examination did not reveal any focal deficits. Diffusely weak SKIN: No rashes. no petechiae. - Labs CBC & Chem 7: 09/21/20 03:25 09/21/20 03:25 Labs: Abnormal Lab Results - Last 24 Hours (Table) 09/19/20 09/19/20 09/20/20 Range/Units 23:45 23:48 04:00 WBC (3.8-10.6) k/uL RBC (4.30-5.90) m/uL Hgb (13.0-17.5) gm/dL Hct (39.0-53.0) % RDW (11.5-15.5) % Plt Count (150-450) k/uL Neutrophils # (1.3-7.7) k/uL Lymphocytes # (1.0-4.8) k/uL PT 15.4 H (9.0-12.0) sec INR 1.5 H (<1.2) ABG pH 7.51 H (7.35-7.45) ABG pCO2 32 L (35-45) mmHg ABG pO2 118 H (83-108) mmHg ABG HCO3 26 H (21-25) mmol/L ABG Total CO2 27 H (19-24) mmol/L ABG O2 Saturation 99.7 H (94-97) % Sodium (137-145) mmol/L BUN (9-20) mg/dL Creatinine (0.66-1.25) mg/dL POC Glucose (mg/dL) 109 H (75-99) mg/dL Iron (65-175) ug/dL Total Bilirubin (0.2-1.3) mg/dL C-Reactive Protein (<1.0) mg/dL Total Protein (6.3-8.2) g/dL Albumin (3.5-5.0) g/dL Procalcitonin (0.02-0.09) ng/mL 09/20/20 09/20/20 09/20/20 Range/Units 04:00 04:00 04:00 WBC 21.1 H (3.8-10.6) k/uL RBC 2.48 L (4.30-5.90) m/uL Hgb 7.5 L (13.0-17.5) gm/dL Hct 23.2 L (39.0-53.0) % RDW 17.4 H (11.5-15.5) % Plt Count 105 L (150-450) k/uL Neutrophils # 19.1 H (1.3-7.7) k/uL Lymphocytes # 0.7 L (1.0-4.8) k/uL PT (9.0-12.0) sec INR (<1.2) ABG pH (7.35-7.45) ABG pCO2 (35-45) mmHg ABG pO2 (83-108) mmHg ABG HCO3 (21-25) mmol/L ABG Total CO2 (19-24) mmol/L ABG O2 Saturation (94-97) % Sodium 131 L (137-145) mmol/L BUN 97 H (9-20) mg/dL Creatinine 3.22 H (0.66-1.25) mg/dL POC Glucose (mg/dL) (75-99) mg/dL Iron 49 L (65-175) ug/dL Total Bilirubin 2.3 H (0.2-1.3) mg/dL C-Reactive Protein 8.5 H (<1.0) mg/dL Total Protein 4.9 L (6.3-8.2) g/dL Albumin 2.2 L (3.5-5.0) g/dL Procalcitonin 1.08 H (0.02-0.09) ng/mL Assessment and Plan Assessment: Acute hypoxic respiratory failure due to acute CHF. Acute on chronic CHF with systolic dysfunction ejection fraction 2025% as per TTE Bilateral lower extremity swelling with left leg cellulitis. Chronic atrial fibrillation on anticoagulation with warfarin Subtherapeutic Level. Coagulopathy secondary to Coumadin Mildly elevated troponin level likely due to demand ischemia with CHF and also chronic CKD Worsening Acute kidney injury likely due to cardiorenal. Chronic kidney disease stage III Hypertension Hyperlipidemia History of [place] Morbid obesity BMI 47.3 Full code Plan: This is a pleasant 64 years old male who presents with severe CHF, left leg cellulitis and LELAND. Patient currently on IV Lasix with nephrology and asbestos shingle inspector following closely, monitor urine output. Monitor electrolytes. Cardiology and pulmonary/critical care team consult as well as nephrology team on the case Continue with fluid restriction and monitor creatinine and urine output, creatinine continues to worsen and nephrology following and recommending to continue with IV Lasix drip as well as dobutamine drip as blood pressures are low Patient continues on 8 L high flow with intermittent BiPAP and currently placed back on the BiPAP. Continue with antibiotic, currently with cefepime infectious disease is following and being placed on daptomycin and cefepime day being discontinued. Patient also on anidulafungin. Recent blood cultures negative. Monitor INR while he is on Coumadin. Current INR is 1.7 Coumadin Labs and medication were reviewed.. Continue same treatment. Continue with symptomatic treatment. Resume home medication. Monitor lytes and vitals. DVT and GI prophylaxis. Further recommendations as per clinical course of the patient DVT prophylaxis: Coumadin GI Prophylaxis: Pepcid Prognosis is poor and guarded
[2020-09-21] MEDS ORDERED: DARBEPOETIN ALFA 60 MCG/0.3 ML SYRINGE SQ SCH (10:00)
--- NOTE | 2020-09-21 10:09 | PN ---
PROGRESS NOTE Patient is seen for followup for acute kidney injury, mostly cardiorenal. He is maintained on dobutamine drip and Lasix drip. Urine output has finally picked up. Currently at about 100-135 mL an hour. Patient is currently on BiPAP. I had briefly discussed renal replacement therapy with him and at that time he was not too keen on it. However, this morning he states that he would be agreeable to it if indicated. There was also suggestion of possible hospice care. Therefore, I am not sure exactly about the code status. PHYSICAL EXAMINATION: On examination today, patient denies any significant shortness of breath. He is comfortable on his BiPAP. Blood pressure was 90/49, heart rate 108 per minute. He is afebrile. Examination of the heart S1, S2. Examination of lungs, decreased breath sounds at bases. Abdomen is soft. Morbidly obese. Examination of lower extremities shows chronic skin changes, chronic edema noted. PURSE SEINING HAND exam grossly intact. LAB: Show sodium 132, potassium 4.9, chloride 100, BUN 97, serum creatinine is 2.7 mg/dL. Hemoglobin 7.4. ASSESSMENT: 1. Acute kidney injury, acute tubular necrosis and cardiorenal syndrome currently with improved urine output, maintained on dobutamine drip and Lasix drip which we will continue for now. 2. Volume overload, slowly improving. 3. Acute hypoxic respiratory failure secondary to congestive heart failure exacerbation, maintained on BiPAP. 4. Cardiomyopathy, ejection fraction 20-25%. 5. Chronic kidney disease stage 3. Baseline creatinine 1.2-1.3. Etiology nephrosclerosis. 6. Anemia. Iron replete. No active bleeding noted at this time. I will add Aranesp. 7. Left leg wound with wound culture growing Pseudomonas fluorescens beta-hemolytic strep group G. PLAN: Add Aranesp. Continue Lasix drip and dobutamine. Repeat labs in a.m. Avoid nephrotoxic agents. Continue with the midodrine as well. MMODL / IJN: [id number] /
[2020-09-21] MEDS: METOPROLOL TARTRATE 50 MG TAB PO SCH ×3 (10:25→21:08)
--- NOTE | 2020-09-21 12:16 | P.PN ---
Subjective Progress Note Date: 09/21/20 HISTORY OF PRESENT ILLNESS: This is a 64-year-old male with a past medical history significant for chronic persistent atrial fibrillation on Coumadin, dilated cardiomyopathy, chronic systolic heart failure, hypertension, COPD, hyperlipidemia, and chronic kidney disease. Patient follows in the office with Dr. Goodwin. Patient remains on IV dobutamine and Lasix drip. Patient has been unable to be successfully weaned off of his dobutamine. Creatinine today is 3.22, up from 2.64 yesterday. Chest x-ray today reveals cardiomegaly. There may be mild pulmonary vascular congestion. Improving aeration in the right base. Echocardiogram completed revealed ejection fraction 20-25%, severe global hypokinesis of LV, trace mitral regurgitation, mild tricuspid regurgitation mild pulmonary hypertension and trivial pericardial effusion. Telemetry reveals atrial fibrillation with cont rolled ventricular rates 09/21/2020 Patient examined this morning at bedside. Patient remains on dobutamine. Patient has not made much improvement. He was made a DO NOT RESUSCITATE yesterday. Possible talk of palliative/hospice care today. PHYSICAL EXAM: VITAL SIGNS: Reviewed. GENERAL: Well-developed in no acute distress. NECK: Supple. No JVD or thyromegaly LUNGS: Respirations even and unlabored. Lungs diminished bilaterally with scattered rhonchi and bibasilar rales. HEART: Irregular rate and rhythm. S1 and S2 heard. EXTREMITIES: Normal range of motion. No clubbing or cyanosis. Peripheral pulses intact. Bilateral lower extremity edema with chronic skin discoloration and evidence of cellulitis. Right leg with dressing intact. ASSESSMENT: Acute exacerbation of chronic systolic heart failure, EF 20-25% Chronic persistent atrial fibrillation on anticoagulation with Coumadin Cardiomyopathy, unclear if ischemic or nonischemic Hypertension Acute kidney injury Chronic kidney disease Bilateral lower extremity cellulitis Leukocytosis, secondary to above COPD Morbid obesity PLAN: Antibiotics per infectious disease Continue IV lasix Continue IV dobutamine Monitor kidney function Daily weights Accurate I&O Possible hospice/palliative care Further recommendations pending patient course Nurse practitioner note has been reviewed by physician. Signing provider agrees with the documented findings, assessment, and plan of care. Objective - Vital Signs Vital signs: Vital Signs Temp 98.2 F 09/21/20 08:00 Pulse 105 H 09/21/20 11:00 Resp 22 09/21/20 11:00 BP 89/56 09/21/20 11:00 Pulse Ox 98 09/21/20 11:00 Intake & Output 09/20/20 09/21/20 09/21/20 18:59 06:59 18:59 Intake Total 743.437 969.346 730 Output Total 1685 952 310 Balance -941.563 17.346 420 Intake: IV 215 340 280 0.9 Normal Saline @ 10mL/ 90 190 50 hr Anidulafungin 200 mg In 200 Sodium Chloride 0.9% 200 ml @ 84 mls/hr IVPB ONCE ONE Rx#:[id number] Cefepime 2 gm In Sodium 75 Chloride 0.9% 100 ml @ 25 mls/hr IVPB BID@0600, 1800 [facility] Rx#:[id number] DAPTOmycin 670 mg In 50 Sodium Chloride 0.9% 50 ml @ 100 mls/hr IVPB Q48H [facility] Rx#:[id number] Furosemide 100 mg In 50 100 30 Sodium Chloride 0.9% 90 ml @ 10 MG/HR 10 mls/hr IV .Q10H [facility] Rx#: [id number] Intake, IV Titration 328.437 629.346 250 Amount DOBUTamine DRIP 500 mg In 228.437 250 250 Dextrose/Water 1 250ml. bag @ 5 MCG/KG/MIN 24.345 mls/hr IV .[id number] [facility] Rx#:[id number] Furosemide 100 mg In 100 164.667 Sodium Chloride 0.9% 90 ml @ 10 MG/HR 10 mls/hr IV .Q10H [facility] Rx#: [id number] Norepinephrine 4 mg In 214.679 Sodium Chloride 0.9% 250 ml @ 0.05 MCG/KG/MIN 32. 137 mls/hr IV .Q7H55M [facility] Rx#:[id number] Oral 200 200 Output: Urine 1685 952 310 Other: Voiding Method Indwelling Catheter Indwelling Catheter # Bowel Movements 1 ABP, PAP, CO, CI - Last Documented Arterial Blood Pressure 117/77 - Labs CBC & Chem 7: 09/21/20 03:25 09/21/20 03:25 Labs: Abnormal Lab Results - Last 24 Hours (Table) 09/21/20 09/21/20 09/21/20 Range/Units 03:25 03:25 03:25 WBC 19.8 H (3.8-10.6) k/uL RBC 2.48 L (4.30-5.90) m/uL Hgb 7.4 L (13.0-17.5) gm/dL Hct 23.2 L (39.0-53.0) % RDW 17.9 H (11.5-15.5) % Plt Count 130 L (150-450) k/uL Neutrophils # 17.5 H (1.3-7.7) k/uL Lymphocytes # 0.9 L (1.0-4.8) k/uL PT 17.1 H (9.0-12.0) sec INR 1.7 H (<1.2) Sodium 132 L (137-145) mmol/L BUN 97 H (9-20) mg/dL Creatinine 3.70 H (0.66-1.25) mg/dL Glucose 104 H (74-99) mg/dL Total Bilirubin 2.3 H (0.2-1.3) mg/dL Total Protein 5.3 L (6.3-8.2) g/dL Albumin 2.4 L (3.5-5.0) g/dL Microbiology - Last 24 Hours (Table) 09/20/20 04:00 Blood Culture - Preliminary Blood No Growth after 24 hours
[2020-09-21] MEDS ORDERED: SILVER NITRATE APPLICATOR 1 EACH STICK..EA. TOPICAL STA (13:49)
[2020-09-21 16:09] VITALS: TEMP 98.3
[2020-09-21] MEDS ORDERED: WARFARIN 5 MG TAB PO ONE (18:00)
[2020-09-21] MEDS ORDERED: WARFARIN 7.5 MG TAB PO SCH (18:00)
[2020-09-21] MEDS: HALOPERIDOL LACTATE 5 MG/ML 1 ML VIAL IVP PRN (18:22)
--- NOTE | 2020-09-21 18:33 | PN ---
PROGRESS NOTE DATE OF SERVICE: 09/21/2020. REASON FOR FOLLOWUP: 1. Bilateral lower extremity venous stasis ulcer cellulitis. 2. Elevated white count. INTERVAL HISTORY: The patient is afebrile. The patient has been off and on the BiPAP. He is hemodynamically stable, not on pressor support. Denies any chest pain. Did have a cough. Not bringing up any sputum. No abdominal pain. Has been complaining of pain to the right hip area. The patient has significant hematoma based on the blood-stained drainage. No pain to the leg. PHYSICAL EXAMINATION: Blood pressure is 96/80 with a pulse of 124, temperature 98.3. He is 100% on BiPAP. General description is a middle-aged male lying in bed in no distress. Respiratory system: Unlabored breathing with decreased intensity of breath sounds. No wheeze. Heart S1, S2. Regular rate and rhythm. Abdomen soft, no tenderness. Right hip did have significant bruising. No redness or any foul-smelling drainage. LABS: BUN of 97, creatinine 3.70. Hemoglobin is 7.4, white of 19.8. DIAGNOSTIC IMPRESSION AND PLAN: 1. Patient with bilateral lower extremity venostasis ulcer with secondary cellulitis. Underlying cellulitis has been adequately treated. The patient has received more than 2 weeks of IV cefepime. 2. Patient now with elevated white count more likely related to the right hip hematoma. No evidence of any cellulitis or secondary infection. We will go ahead and discontinue his Eraxis and monitor the patient closely off antibiotic therapy. If the patient spikes any fever or any change in his clinical condition, he will be recultured before restarting antibiotics. MMODL / IJN: [id number] /
[2020-09-21] MEDS ORDERED: MORPHINE SULFATE 2 MG/ML SYRINGE IV PRN (18:54)
[2020-09-21 19:04] VITALS: BP 117/62; PULSE 140; RESP 37
[2020-09-21] MEDS: MORPHINE SULFATE (100 MG/2 ML) 100 MG in SODIUM CHLORIDE 0.9% 100 ML IV SCH ×2 (19:18→22:55)
--- NOTE | 2020-09-22 03:11 | P.PN ---
Subjective Progress Note Date: 09/21/20 Patient is a 64-year-old male with a known history of chronic atrial fibrillation on anticoagulation with warfarin, chronic CHF with systolic dysfunction, hypertension, hyperlipidemia, history of my, hypothyroidism, stage III CKD, bilateral lower extremity venous insufficiency/venous stasis and previous history of cellulitis and other medical problems presents to ER with complaints of shortness of breath worsening for the past 2-4 weeks. Patient was also having increased leg swelling. No complaints of chest pain. Patient diagnosed with severe systolic CHF with ejection fraction of 20-25% with resultant acute hypoxic respiratory failure, patient is placed on dobutamine and Lasix drips. Also he needed some mild dose norepinephrine drip for blood pressure support. He is on cefepime for left leg cellulitis. Creatinine is improving 3.8 down to 3.1 today, his acute kidney injury secondary to cardiorenal syndrome He is on Coumadin for A. fib. INR is 3.2 today. Wound culture is growing Streptococcus and gram-negative bacilli today patient feels better with breathing more easily, he is needing 6 L of oxygen via nasal cannula Patient is hemodynamically stable. 09/12/2020 Patient's remains in the ICU, he states that his dyspnea is a slightly better, patient noticed to be tachypneic and he needed 8 liter/min of oxygen today compared to 6 L/m yesterday. He has left leg cellulitis and bilateral leg edema edges improving slightly. Both legs are is wrapped He had to use BiPAP last night for a couple hours. INR is 3.2 and 3.1, creatinine coming down to 2.5. Wound culture is growing Streptococcus and gram-negative bacilli He remains on Lasix drip and dobutamine drip while little bit was discontinued today. He remains on cefepime, warfarin 5 mg given tonight per addictions therapist. He is on Lasix and dobutamine drip and aspirin 81 mg. 09/13/2020 Patient Wanted to hurt in the ICU currently. His diuresing well while he is on Lasix and dobutamine drip. No more need for Levophed drip. However he still short of breath at rest, improved since admission. He is on 8 L/m of oxygen and is on cannula this morning. He has bilateral leg swelling which are improving as well. His INR is 2.9 after he got 5 units of Coumadin last night, creatinine improving down to 2.0 today. He also continued on antibiotics with cefepime, wound culture showing beta- hemolytic streptococcus and gram-negative bacilli, final results still pending 09/14/2020 Patient is remains in the ICU, breathing leg similar to yesterday. Still on 8 L oxygen via nasal cannula. However his creatinine level at 2.0 yesterday and 1.9 today. His dobutamine drip was stopped and laxity dropped switched to IV of 60 mg twice daily. Other than that there is no significant change from yesterday. Both legs are is wrapped He remains on cefepime, warfarin dosing with INR today is 2.7. Also I baby dose of aspirin at 81 mg/h. 09/15/2020 Patient most tachypneic today. Still on 8 L oxygen per minute via nasal cannula. Use BiPAP at night LegS are is wrapped. INR today is 2.4, rest of labs are pending. Patient is still on cefepime for leg cellulitis. Patient still on warfarin, IV Lasix 60 mg twice daily. Patient is having good urine output. We will restrict her fluids. 09/16/2020 Patient in the ICU sitting in chair as usual. This less tachypneic to me however he still have subjective feeling of dyspnea and he is still on 8 L of oxygen per minute. Rest of vitals are stable, his creatinine stable at 1.8, WBC is 11 K, platelet count is 116K. Sims catheter is in place with good urine output Is still on cefepime, Lovenox 80 mg twice daily, IV Lasix twice daily, dobutamine drip. Amiodarone load from 400 down to 200 by addictions therapist. Also he is on midodrine and metoprolol. And aspirin 81 mg. Warfarin was discontinued yesterday and didn't INR was 1.5 after vitamin K. 09/17/2020 Patient seen and evaluated and follow-up continues to be closely monitored in the ICU and is currently in bed awake and alert. Continues to be dyspneic and continues on 8 L of oxygen high flow and is being closely monitored. Patient continues with BiPAP at night and as needed. Patient was given a dose of IV Lasix 80 mg 1 time today with multiple medical consultations following clearing cardiology, pulmonary windshield repair technician, infectious disease, and nephrology. Patient continues on IV cefepime for lower extremity cellulitis. Hermes wraps were on the patient and removed with continued redness and sloughing of the skin noted along with edema above and below the site of the Hermes wraps. Patient does have lower extremities elevated at this time. Patient continues on dobutamine and has been increased per windshield repair technician. Continue with midodrine as well. 09/19/2020 Patient remains in the ICU, breathing quietly but he still an 8 L oxygen via nasal cannula. He uses BiPAP at times especially at night. Blood pressure is on the low side 84/52. Hemoglobin Trending down to 14.1, 12.5, 10.4 and today it 0.9. Also patient 90 low blood pressure 84/52, will keep monitor hemoglobin. Patient kept on blood thinner recommended by consultants. We'll keep monitoring her closely for now Also patient has leukocytosis 16.8 following steroids. Platelet 113. INR 1.3 with plan to resume Coumadin and stop Lovenox after PICC line was p laced. Creatinine also trending up to 2.6. Sodium is 131. There is increasing infiltrate and atelectasis of the lung base compared to exam this morning on the chest x-ray Patient currently on cefepime for cellulitis. We will check portcalcitonin and C-reactive protein tomorrow and follow-up repeat chest x-ray in the morning as well. Also patient was placed on Lasix drip Nephrology team on the case and they monitor the patient recommended to repeat echocardiogram to rule out pericardial effusion. Patient remains on dobutamine and medial drain Budget Analyst following the patient closely as well 09/20/2020 Patient is seen in follow-up continues to be in the ICU being closely monitored. Patient continues on dobutamine along with IV Lasix drip and being closely monitored. Patient is currently on 8 L high flow nasal cannula and continuing to be dyspneic and is currently being placed on BiPAP. Blood pressure continues to be on the lower side. Patient also continues on IV antibiotics in the form of cefepime and lower extremities are reddened although slightly improved. Dressing currently wrapping the lower extremities and continue with local wound care. White blood count today is 21.1, hemoglobin is 7.5, sodium is 131 with a potassium of 5.1 and current creatinine is 3.22 with nephrology following closely. Repeat BMP is 10,700 and Procol troponin is elevated at 1.08. Sid isol level is 31. 09/21/2020 Patient is seen this morning continues to be closely monitored in the ICU and is bipap dependent at this time. Patient continues on dobutamine and IV lasix and started on Levophed. Discussion is being had about hospice with comfort care measures. Review of systems CONSTITUTIONAL: No fever, no malaise, no fatigue. HEENT: No recent visual problems or hearing problems. Denied any sore throat. CARDIOVASCULAR: No orthopnea, PND, no palpitations, no syncope. PULMONARY: No chest wall tenderness, no cough, no hemoptysis. extreme dyspnea on bipap GASTROINTESTINAL: No diarrhea, no nausea, no vomiting, no abdominal pain. Normoactive bowel sounds. Objective - Vital Signs Vital signs: Vital Signs Temp 98.2 F 09/21/20 08:00 Pulse 110 H 09/21/20 15:40 Resp 22 09/21/20 11:00 BP 89/56 09/21/20 11:00 Pulse Ox 98 09/21/20 11:00 Intake & Output 09/20/20 09/21/20 09/21/20 18:59 06:59 18:59 Intake Total 743.437 969.346 970 Output Total 1685 952 660 Balance -941.563 17.346 310 Intake: IV 215 340 320 0.9 Normal Saline @ 10mL/ 90 190 70 hr Anidulafungin 200 mg In 200 Sodium Chloride 0.9% 200 ml @ 84 mls/hr IVPB ONCE ONE Rx#:[id number] Cefepime 2 gm In Sodium 75 Chloride 0.9% 100 ml @ 25 mls/hr IVPB BID@0600, 1800 [facility] Rx#:[id number] DAPTOmycin 670 mg In 50 Sodium Chloride 0.9% 50 ml @ 100 mls/hr IVPB Q48H [facility] Rx#:[id number] Furosemide 100 mg In 50 100 50 Sodium Chloride 0.9% 90 ml @ 10 MG/HR 10 mls/hr IV .Q10H [facility] Rx#: [id number] Intake, IV Titration 328.437 629.346 250 Amount DOBUTamine DRIP 500 mg In 228.437 250 250 Dextrose/Water 1 250ml. bag @ 5 MCG/KG/MIN 24.345 mls/hr IV .[id number] [facility] Rx#:[id number] Furosemide 100 mg In 100 164.667 Sodium Chloride 0.9% 90 ml @ 10 MG/HR 10 mls/hr IV .Q10H [facility] Rx#: [id number] Norepinephrine 4 mg In 214.679 Sodium Chloride 0.9% 250 ml @ 0.05 MCG/KG/MIN 32. 137 mls/hr IV .[id number] [facility] Rx#:[id number] Oral 200 400 Output: Urine 1685 952 660 Other: Voiding Method Indwelling Catheter Indwelling Catheter # Bowel Movements 1 ABP, PAP, CO, CI - Last Documented Arterial Blood Pressure 117/77 - Exam GENERAL: The patient is alert and oriented x3, not in any acute distress. Well developed, well nourished. HEENT: Pupils are round and equally reacting to light. EOMI. No scleral icterus. No conjunctival pallor. Normocephalic, atraumatic. No pharyngeal erythema. No thyromegaly. CARDIOVASCULAR: S1 and S2 present. No murmurs, rubs, or gallops. PULMONARY: Diminished breath sounds bilaterally with bilateral basilar crepitation ABDOMEN: Soft, nontender, nondistended, normoactive bowel sounds. No palpable organomegaly. MUSCULOSKELETAL: No joint swelling or deformity. EXTREMITIES: No cyanosis, clubbing, . Bilateral lower extremity redness and sloughing of the skin noticed showing continued edema although slightly improved NEUROLOGICAL: Gross neurological examination did not reveal any focal deficits. Diffusely weak SKIN: No rashes. no petechiae. - Labs CBC & Chem 7: 09/21/20 03:25 09/21/20 03:25 Labs: Abnormal Lab Results - Last 24 Hours (Table) 09/21/20 09/21/20 09/21/20 Range/Units 03:25 03:25 03:25 WBC 19.8 H (3.8-10.6) k/uL RBC 2.48 L (4.30-5.90) m/uL Hgb 7.4 L (13.0-17.5) gm/dL Hct 23.2 L (39.0-53.0) % RDW 17.9 H (11.5-15.5) % Plt Count 130 L (150-450) k/uL Neutrophils # 17.5 H (1.3-7.7) k/uL Lymphocytes # 0.9 L (1.0-4.8) k/uL PT 17.1 H (9.0-12.0) sec INR 1.7 H (<1.2) Sodium 132 L (137-145) mmol/L BUN 97 H (9-20) mg/dL Creatinine 3.70 H (0.66-1.25) mg/dL Glucose 104 H (74-99) mg/dL Total Bilirubin 2.3 H (0.2-1.3) mg/dL Total Protein 5.3 L (6.3-8.2) g/dL Albumin 2.4 L (3.5-5.0) g/dL Microbiology - Last 24 Hours (Table) 09/20/20 04:00 Blood Culture - Preliminary Blood No Growth after 24 hours Assessment and Plan Assessment: Acute hypoxic respiratory failure due to acute CHF. Acute on chronic CHF with systolic dysfunction ejection fraction 2025% as per TTE Bilateral lower extremity swelling with left leg cellulitis. Chronic atrial fibrillation on anticoagulation with warfarin Subtherapeutic Level. Coagulopathy secondary to Coumadin Mildly elevated troponin level likely due to demand ischemia with CHF and also chronic CKD Worsening Acute kidney injury likely due to cardiorenal. Chronic kidney disease stage III Hypertension Hyperlipidemia History of [place] Morbid obesity BMI 47.3 Full code Plan: Plan to continue with Bipap and discussion is being had for hospice and consult was placed. Comfort measures being ordered. IV Lasix drip as well as dobutamine drip and levophed was started. with no improvement. Proceeding with comfort care only Prognosis remains poor and guarded Will continue to monitor closely
--- NOTE | 2020-09-23 09:05 | P.DS ---
Providers Date of admission: 09/06/20 19:06 Expected date of discharge: 09/22/20 Attending physician: Abdulaziz Castorena Consults: 09/06/20 19:11 Consult Physician Routine Consulting Provider: [facility] Consult Reason/Comments: CHF exacerbation Do you want consulting provider notified?: Yes 09/07/20 16:29 Consult Physician Routine Consulting Provider: Royal Castillo Consult Reason/Comments: right white weeping wound Do you want consulting provider notified?: Yes 09/08/20 08:56 Consult Physician Routine Consulting Provider: Tegan Paz Consult Reason/Comments: renal failure, persistent hyperkalemia Do you want consulting provider notified?: Already Contacted 09/09/20 10:47 Consult Physician Routine Consulting Provider: Jose Cruz Heaton Consult Reason/Comments: copd on top of heart failure Do you want consulting provider notified?: Yes Primary care physician: Sherman Middletonqvi Hospital Course: Final diagnosis Acute hypoxic respiratory failure due to acute CHF. Acute on chronic CHF with systolic dysfunction ejection fraction 2024% as per TTE Bilateral lower extremity swelling with left leg cellulitis. Chronic atrial fibrillation on anticoagulation with warfarin Subtherapeutic Level. Coagulopathy secondary to Coumadin Mildly elevated troponin level likely due to demand ischemia with CHF and also chronic CKD Worsening Acute kidney injury likely due to cardiorenal. Chronic kidney disease stage III Hypertension Hyperlipidemia History of [place] Morbid obesity BMI 47.3 Full code Preliminary cause of Congestive heart failure with systolic dysfunction Discharge disposition Patient has according to nursing documentation at 0200 on 09/22/2020 Hospital course This is a 64-year-old male who was known for history of chronic atrial fibrillation along with chronic CHF with systolic dysfunction, hypertension, hyperlipidemia, history of myocardial infarction, hypothyroidism, chronic kidney disease stage III, bilateral lower extremity venous insufficiency with venous stasis and cellulitis and was being closely monitored in the ICU on BiPAP. Patient was also on IV Lasix along with pressors and continued to deteriorate and respiratory status continued to decline. Patient opted for no CODE STATUS with discussions of being made comfort care. Patient did not want any further treatment given his poor prognosis and worsening respiratory status. Recent was made comfort care measures only and at 0200 on 09/22/2020. Please refer to previous dictations for further HPI. Patient Condition at Discharge: Poor Plan - Discharge Summary Discharge Rx Participant: Yes New Discharge Prescriptions: No Action Warfarin Sodium 5 mg PO SUMOWETHSA Aspirin 81 mg PO DAILY chew Warfarin [Coumadin] 7.5 mg PO TUFR Levothyroxine Sodium [Euthyrox] 88 mcg PO SUTUTHSA Metoprolol Tartrate [Lopressor] 50 mg PO BID Potassium Chloride ER [K-Dur 20] 20 meq PO BID #0 lisinopriL [Zestril] 2.5 mg PO DAILY Levothyroxine Sodium [Euthyrox] 100 mcg PO MOWEFR Furosemide [Lasix] 20 mg PO TID Spironolactone [Aldactone] 25 mg PO DAILY@1200 allopurinoL [Zyloprim] 100 mg PO DAILY@1200 Midodrine [ProAmatine] 5 mg PO TID Discharge Medication List Warfarin Sodium 5 mg PO SUMOWETHSA 06/05/19 [History] Aspirin 81 mg PO DAILY chew 07/08/19 [Rx] Levothyroxine Sodium [Euthyrox] 88 mcg PO SUTUTHSA 11/01/19 [History] Metoprolol Tartrate [Lopressor] 50 mg PO BID 11/01/19 [History] Warfarin [Coumadin] 7.5 mg PO TUFR 11/01/19 [History] Potassium Chloride ER [K-Dur 20] 20 meq PO BID #0 11/10/19 [Rx] Furosemide [Lasix] 20 mg PO TID 09/06/20 [History] Levothyroxine Sodium [Euthyrox] 100 mcg PO MOWEFR 09/06/20 [History] Midodrine [ProAmatine] 5 mg PO TID 09/06/20 [History] Spironolactone [Aldactone] 25 mg PO DAILY@1200 09/06/20 [History] allopurinoL [Zyloprim] 100 mg PO DAILY@1200 09/06/20 [History] lisinopriL [Zestril] 2.5 mg PO DAILY 09/06/20 [History] Follow up Appointment(s)/Referral(s): Sherman Hall MD [Primary Care Provider] - 1-2 days [facility] [NON-STAFF] - Sal Goodwin MD [STAFF PHYSICIAN] - 1 Week Discharge Disposition: - Preliminary Cause of Preliminary Cause of : Chronic congestive heart failure with systolic dysfunction
--- NOTE | 2020-09-23 11:37 | CDI ---
Documentation Clarification Form Mortality Review Date: 09/23/2020 11:15:42 AM From: Fatemeh Arteaga RN, CCDS Admit Date: 09/06/2020 07:06:00 PM Patient Name: Omid López Visit Number: [id number] Discharge Date: 09/22/2020 04:03:00 AM ATTENTION: The Clinical Documentation Specialists (CDI) and [facility] Coding Staff appreciate your assistance in clarifying documentation. Please respond to the clarification below the line at the bottom and electronically sign. The CDI & [facility] Coding staff will review the response and follow-up if needed. Please note: Queries are made part of the Legal Health Record. If you have any questions, please contact the author of this message via ITS. Dr. Stearns Conflicting documentation has been found in the medical record. As attending physician, please provide clarification. 09/07-09/15 Cardiology Consult and Progress notes: "Troponin leak not indicative of myocardial ischemia, likely secondary to a combination of acute heart failure and chronic kidney disease 09/10-09/10 H&P and Progress notes: "Mildly elevated troponin level likely due to demand ischemia with CHF and also complaining CK D Chronic kidney disease stage III Hyperkalemia due to acute kidney injury and potassium supplementation at home." 09/11-09/22 Attending Progress notes: "Coagulopathy secondary to Coumadin Mildly elevated troponin level likely due to demand ischemia with CHF and also complaining CK D Worsening Acute kidney injury likely due to cardiorenal." History/Risk Factors: Acute on Chronic Systolic CHF, Chronic Atrial fib on Coumadin, Ischemic cardiomyopathy, Acute on Chronic Renal Failure stage 3, HTN, Hx of [place], Morbid Obesity, COPD, venous insufficiency Clinical Indicators: 09/07 Echo: EF 20-25%, severe global hypokinesis, RV severely dilated, mild pulmonary HTN EKG: chronic Atrial fib with a left bundle branch block Treatment: 09/08-09/14 Amiordarone 400 mg PO BID, then decreased to 200 mg Po BID 09/09-09/14 Dobutamine Gtt @ 2.5mcg/KG/Min then increased to 5k mcg/kg/min on 09/14 until patient made comfort measures 09/19 Dopamine Gtt @ 2.5 mcg/kg/min 09/10 Levophed Gtt titrate for B/P Coumadin Po Per protocol daily Lopressor 50 mg Po BID 09/10-09/14 & 09/19-09/21 Lasix Gtt @ 10 mg/hr., multiple doses of IVP Lasix ordered before and after Lasix Get Please clarify which diagnosis is most appropriate: [ ] Demand ischemia is ruled out [ ] Demand ischemia with a Type 2 [place] is ruled in [ ] Other (please specify) [ ] Unable to determine (Template Last Revised: May 2020) MTDD
== END 2020-09-22 04:03 | disposition expired | DRG 291 ==
LOC: EC 17:09 → 3SCARD 19:06 → 2SICU 09-09 23:36
PROVIDERS: ADMIT Hospitalist; ATTEND Hospitalist
PROC: 5A0935A Assistance with Respiratory Ventilation, Less than 24 Consecutive Hours, High Flow/Velocity Cannula (ICD-10-PCS; 2020-09-07)
PROC: 3E033XZ Introduction of Vasopressor into Peripheral Vein, Percutaneous Approach (ICD-10-PCS; 2020-09-10)
PROC: 04HY32Z Insertion of Monitoring Device into Lower Artery, Percutaneous Approach (ICD-10-PCS; 2020-09-10)
PROC: 4A133J1 Monitoring of Arterial Pulse, Peripheral, Percutaneous Approach (ICD-10-PCS; 2020-09-10)
PROC: 4A133B1 Monitoring of Arterial Pressure, Peripheral, Percutaneous Approach (ICD-10-PCS; 2020-09-10)
PROC: 02HV33Z Insertion of Infusion Device into Superior Vena Cava, Percutaneous Approach (ICD-10-PCS; principal; 2020-09-16 12:05)
PROC: 5A09457 Assistance with Respiratory Ventilation, 24-96 Consecutive Hours, Continuous Positive Airway Pressure (ICD-10-PCS; 2020-09-20)
DX: I13.0 Hypertensive heart and chronic kidney disease with heart failure and stage 1 through stage 4 chronic kidney disease, or unspecified chronic kidney disease (principal); I50.23 Acute on chronic systolic (congestive) heart failure; N17.0 Acute kidney failure with tubular necrosis; J96.01 Acute respiratory failure with hypoxia; B37.0 Candidal stomatitis; E27.40 Unspecified adrenocortical insufficiency; E66.2 Morbid (severe) obesity with alveolar hypoventilation; E87.1 Hypo-osmolality and hyponatremia; E87.2 Acidosis; I47.2 Ventricular tachycardia; I48.19 Other persistent atrial fibrillation; J98.11 Atelectasis; L02.416 Cutaneous abscess of left lower limb; L03.115 Cellulitis of right lower limb; L03.116 Cellulitis of left lower limb; L97.919 Non-pressure chronic ulcer of unspecified part of right lower leg with unspecified severity; L97.929 Non-pressure chronic ulcer of unspecified part of left lower leg with unspecified severity; T79.7XXA Traumatic subcutaneous emphysema, initial encounter; Z68.43 Body mass index [BMI] 50.0-59.9, adult; R57.0 Cardiogenic shock; Z20.822 Contact with and (suspected) exposure to COVID-19; Z51.5 Encounter for palliative care; Z66 Do not resuscitate; D63.1 Anemia in chronic kidney disease; D69.6 Thrombocytopenia, unspecified; E11.22 Type 2 diabetes mellitus with diabetic chronic kidney disease; I83.019 Varicose veins of right lower extremity with ulcer of unspecified site; I27.20 Pulmonary hypertension, unspecified; I83.029 Varicose veins of left lower extremity with ulcer of unspecified site; Z79.01 Long term (current) use of anticoagulants; I42.0 Dilated cardiomyopathy; I50.82 Biventricular heart failure; E03.9 Hypothyroidism, unspecified; E78.5 Hyperlipidemia, unspecified; B96.5 Pseudomonas (aeruginosa) (mallei) (pseudomallei) as the cause of diseases classified elsewhere; T44.5X5A Adverse effect of predominantly beta-adrenoreceptor agonists, initial encounter; E87.6 Hypokalemia; E87.5 Hyperkalemia; I25.10 Atherosclerotic heart disease of native coronary artery without angina pectoris; I25.2 Old myocardial infarction; I25.5 Ischemic cardiomyopathy; I44.7 Left bundle-branch block, unspecified; I87.8 Other specified disorders of veins; J44.9 Chronic obstructive pulmonary disease, unspecified; N18.31 Chronic kidney disease, stage 3a; N40.1 Benign prostatic hyperplasia with lower urinary tract symptoms; R33.8 Other retention of urine; R79.1 Abnormal coagulation profile; S70.01XA Contusion of right hip, initial encounter; T45.515A Adverse effect of anticoagulants, initial encounter; R21 Rash and other nonspecific skin eruption; R82.81 Pyuria; I08.1 Rheumatic disorders of both mitral and tricuspid valves; B95.4 Other streptococcus as the cause of diseases classified elsewhere; T50.2X5A Adverse effect of carbonic-anhydrase inhibitors, benzothiadiazides and other diuretics, initial encounter; Z79.82 Long term (current) use of aspirin; Z79.890 Hormone replacement therapy; Z79.899 Other long term (current) drug therapy; Z80.9 Family history of malignant neoplasm, unspecified; Z85.828 Personal history of other malignant neoplasm of skin; Z98.42 Cataract extraction status, left eye; Z98.41 Cataract extraction status, right eye; Z96.1 Presence of intraocular lens; Z88.0 Allergy status to penicillin; Z88.8 Allergy status to other drugs, medicaments and biological substances; Z87.01 Personal history of pneumonia (recurrent); Z98.890 Other specified postprocedural states
CPT/HCPCS: 36410; 36415; 36573; 36600; 71045; 71046; 76937; 80048; 80053; 81001; 82533; 82728; 82805; 83540; 83550; 83605; 83735; 83880; 84132; 84145; 84443; 84484; 85025; 85027; 85610; 85730; 86140; 87040; 87070; 87075; 87086; 87186; 87205; 87635; 93005; 93306; 94640; 94660; 94760; 99285